=== PATIENT | female | born 1960 | race Caucasian/White ===

== ENCOUNTER 2022-04-06 17:20 | Emergency (ER) | payer MEDICARE, MEDICAID, SELFPAY ==
--- NOTE | ~2022-04-06 | XR_ITS ---
EXAM: XR cervical spine 4-5V DATE: 04/06/2022 17:49 HISTORY: NKI,HX 2 DISC SURGERIES AND TUMOR REMOVED,LT POST PAIN . COMPARISON: None available. FINDINGS: On, gated appearing anterior fusion hardware spanning C4-C6 with an appropriately position ed interbody device. Craniocervical association and atlantoaxial joint are normal. No prevertebral so ft tissue swelling. Grade 1 anterolistheses at C2-3 and C3-4. Vertebral body heights are maintained. Severe degenerative disc disease at C6-7. Multilevel facet hypertrophy and sclerosis. 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 Severe degenera tive disc disease at C6-7. Multilevel facet arthropathy. Intact cervical hardware. Reviewed, dictated and finalized at location K. 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 Severe degenerative disc disease at C6-7. Multilevel facet arthropathy. Intact cervical hardware.
--- NOTE | 2022-04-06 17:24 | ED.NECK ---
HPI - Neck Pain/Injury General Chief Complaint: Neck Pain/Injury Stated Complaint: neck pain Time Seen by Provider: 04/06/22 17:24 Source: patient and RN notes reviewed History of Present Illness HPI Narrative: Patient is 61-year-old female who presents the urgent care with complaints of acute on chronic posterior neck pain. Patient states is been ongoing for approximately 1 month. Patient states she has had 2 C-spine surgeries in the past with a metal plate. Patient has been taking Tylenol for the pain and denies of any new injury or trauma. No other acute complaints. No acute distress noted. Patient aware of the plan of care. Some parts of this dictation were generated by voice recognition software and may contain typographical and/or grammatical inaccuracies. Related Data Home Medications Medication Instructions Recorded Confirmed albuterol sulfate 90 mcg/actuation 1 inhalation inhalation Q4-6H PRN 05/24/19 04/06/22 aerosol inhaler (ProAir HFA) Shortness Of Breath Or Wheezing aspirin 81 mg tablet,delayed 81 mg PO DAILY 05/24/19 04/06/22 release fluticasone furoate 100 1 inhalation inhalation DAILY 05/24/19 04/06/22 mcg-vilanterol 25 mcg/dose inhalation powder (Breo Ellipta) furosemide 20 mg tablet 20 mg PO DAILY 05/24/19 04/06/22 cholecalciferol (vitamin D3) 50 2,000 unit PO DAILY 07/26/19 04/06/22 mcg (2,000 unit) tablet letrozole 2.5 mg tablet 2.5 mg PO DAILY 04/06/22 04/06/22 levothyroxine 50 mcg tablet 50 mcg PO DAILY 04/06/22 04/06/22 metoprolol tartrate 50 mg tablet 50 mg PO BID 04/06/22 04/06/22 multivitamin 1 tablet PO DAILY 04/06/22 04/06/22 Allergies Allergy/AdvReac Type Severity Reaction Status Date / Time cyclobenzaprine Allergy Mild SHAKEY/DIZZ Verified 04/06/22 17:39 Y levofloxacin Allergy Mild Itching Verified 04/06/22 17:39 metaxalone Allergy Mild SHAKY/DIZZY Verified 04/06/22 17:39 naproxen Allergy Mild SHAKY/DIZZU Verified 04/06/22 17:39 Y orphenadrine Allergy Mild SHAKEY/DIZZ Verified 04/06/22 17:39 Y Quinolones Allergy Mild Dizziness Verified 04/06/22 17:39 rofecoxib Allergy Mild SHAKEY/DIZZ Verified 04/06/22 17:39 Y diclofenac Allergy Unknown Dizziness Verified 04/06/22 17:39 misoprostol Allergy Unknown Dizziness Verified 04/06/22 17:39 Review of Systems Review of Systems: CONSTITUTIONAL: Denies fever, chills, or sweats. EYES: Denies visual changes, redness, or discharge. ENT: Denies rhinorrhea, congestion, sore throat, or otalgia. CARDIOVASCULAR: Denies chest pain, palpitations, or edema. RESPIRATORY: Denies cough or dyspnea. GASTROINTESTINAL: Denies abdominal pain, nausea, vomiting, or diarrhea. GENITOURINARY: Denies dysuria or hematuria. SKIN: Denies rash or itching. MUSCULOSKELETAL: Reports of posterior left neck pain NEUROLOGIC: Denies headache, numbness, or weakness. All other systems reviewed are negative, except as documented in HPI. [facility] Past Medical History Medical History (Updated 04/06/22 @ 18:21 by RUBÉN Brar) Asthma Breast cancer FHx: breast cancer Headache History of cardiac pacemaker (~09/2018) Hypothyroidism (acquired) (~2004) Medicare annual wellness visit, subsequent Osteopenia Post menopausal problems Skin lesion of face Skin neoplasm Surgical History Surgical History History of heart surgery (~2006) History of lumbosacral spine surgery S/P thyroid surgery (~1998) Family History Family History Mother Hypertension Family history of elevated blood lipids Family history of Alzheimer's disease Family history of malignant neoplasm Father Asthma Family history of osteoarthritis Family history of chronic obstructive pulmonary disease Family history of malignant neoplasm of kidney Other Cerebrovascular accident Diabetes mellitus Family history of arthritis Family history of gout Family history of
[2022-04-06 17:36] VITALS: BP 135/66; PULSE 76; RESP 20; TEMP 36.6; O2SAT 100
== END 2022-04-06 18:25 | disposition home or self-care (01) ==
PROVIDERS: Emergency Provider Nurse Practitioner Family; PCP Family Medicine
DX: S16.1XXA Strain of muscle, fascia and tendon at neck level, initial encounter (principal); X58.XXXA Exposure to other specified factors, initial encounter; J45.909 Unspecified asthma, uncomplicated; E03.9 Hypothyroidism, unspecified; M85.80 Other specified disorders of bone density and structure, unspecified site; Z85.3 Personal history of malignant neoplasm of breast; Z85.828 Personal history of other malignant neoplasm of skin; Z95.0 Presence of cardiac pacemaker
CPT/HCPCS: 72050; 99213; G0463

== ENCOUNTER 2022-06-05 09:50 | Emergency (ER) | payer MEDICARE, MEDICAID, SELFPAY ==
[2022-06-05 09:56] VITALS: BP 90/39; PULSE 83; RESP 16; TEMP 36.8; O2SAT 99
--- NOTE | 2022-06-05 10:23 | ED.URI ---
HPI - URI/Sore Throat General Chief Complaint: Upper Respiratory Infection Stated Complaint: Cough Time Seen by Provider: 06/05/22 10:24 Source: patient and RN notes reviewed Mode of arrival: ambulatory Limitations: no limitations History of Present Illness HPI Narrative: 61-year-old female presenting for complaint of cough for about 3 days. She denies shortness of breath, wheezing, nausea, vomiting, diarrhea, fevers or chills. She is not taking anything for symptoms. She has not been posted for COVID vaccinated for flu. She denies sick contacts. MD elicited complaint: cough Related Data Home Medications Medication Instructions Recorded Confirmed aspirin 81 mg tablet,delayed 81 mg PO DAILY 05/24/19 06/05/22 release furosemide 20 mg tablet 20 mg PO DAILY 05/24/19 06/05/22 cholecalciferol (vitamin D3) 50 2,000 unit PO DAILY 07/26/19 06/05/22 mcg (2,000 unit) tablet letrozole 2.5 mg tablet 2.5 mg PO DAILY 04/06/22 06/05/22 levothyroxine 50 mcg tablet 50 mcg PO DAILY 04/06/22 06/05/22 metoprolol tartrate 50 mg tablet 50 mg PO BID 04/06/22 06/05/22 multivitamin 1 tablet PO DAILY 04/06/22 06/05/22 Allergies Allergy/AdvReac Type Severity Reaction Status Date / Time cyclobenzaprine Allergy Mild SHAKEY/DIZZ Verified 06/05/22 10:13 Y levofloxacin Allergy Mild Itching Verified 06/05/22 10:13 metaxalone Allergy Mild SHAKY/DIZZY Verified 06/05/22 10:13 naproxen Allergy Mild SHAKY/DIZZU Verified 06/05/22 10:13 Y orphenadrine Allergy Mild SHAKEY/DIZZ Verified 06/05/22 10:13 Y Quinolones Allergy Mild Dizziness Verified 06/05/22 10:13 rofecoxib Allergy Mild SHAKEY/DIZZ Verified 06/05/22 10:13 Y diclofenac Allergy Unknown Dizziness Verified 06/05/22 10:13 misoprostol Allergy Unknown Dizziness Verified 06/05/22 10:13 Review of Systems Review of Systems: ROS per HPI PMFSH Past Medical History Medical History Asthma Breast cancer FHx: breast cancer Headache History of cardiac pacemaker (~09/2018) Hypothyroidism (acquired) (~2004) Medicare annual wellness visit, subsequent Osteopenia Post menopausal problems Skin lesion of face Skin neoplasm Surgical History Surgical History History of heart surgery (~2006) History of lumbosacral spine surgery S/P thyroid surgery (~1998) Family History Family History Mother Hypertension Family history of elevated blood lipids Family history of Alzheimer's disease Family history of malignant neoplasm Father Asthma Family history of osteoarthritis Family history of chronic obstructive pulmonary disease Family history of malignant neoplasm of kidney Other Cerebrovascular accident Diabetes mellitus Family history of arthritis Family history of gout Family history of mental disorder Social History Social History Smoking status: Never smoker Second hand tobacco smoke exposure: No Alcohol intake: never Exam Narrative: GENERAL: well-appearing, nontoxic EYES: PERRLA, conjunctivae clear ENT: Mucous membranes moist. nasal congestion. TMs pearly calderon with dull light reflex bilaterally; no tragal tenderness. Oropharynx erythematous without lesions or exudate, no drooling, no hoarseness, no trismus, uvula midline. CHEST: Clear to auscultation, breath sounds equal. No wheezing, rhonchi, rales, or stridor. No respiratory distress, speaks in full sentences. HEART: Regular rate and rhythm. No murmur heard. SKIN: Warm, dry, no rash. NEURO: Alert and oriented x3. PSYCH: Normal mood and affect Course Course Emergency Course: Patient is aware of diagnosis, understands and agrees to treatment plan. Anticipatory guidance given. Patient agrees to follow-up as directed and is aware of reasons to seek care at the emerg
== END 2022-06-05 10:43 | disposition home or self-care (01) ==
PROVIDERS: Emergency Provider Nurse Practitioner Family; PCP Family Medicine
DX: J06.9 Acute upper respiratory infection, unspecified (principal); J45.909 Unspecified asthma, uncomplicated; E03.9 Hypothyroidism, unspecified; M85.80 Other specified disorders of bone density and structure, unspecified site; Z85.3 Personal history of malignant neoplasm of breast; Z85.828 Personal history of other malignant neoplasm of skin
CPT/HCPCS: 99213; G0463

== ENCOUNTER 2022-10-20 12:17 | Emergency (ER) | payer MEDICARE, MEDICAID, SELFPAY ==
[2022-10-20 12:30] VITALS: BP 130/73; PULSE 84; RESP 16; TEMP 35.8; O2SAT 100
--- NOTE | 2022-10-20 13:13 | ED.GENADULT ---
HPI - General Adult General Chief complaint: Ear Stated complaint: Left Ear Problem Source: patient Mode of arrival: ambulatory Limitations: no limitations History of Present Illness HPI narrative: PATIENT PRESENTS FOR EVALUATION OF LEFT EAR FULLNESS. SYMPTOM ONSET APPROXIMATELY 1 WEEK AGO. SHE HAS SOME MUFFLED HEARING ON THE LEFT. DENIES ANY TINNITUS OR DRAINAGE FROM THE EAR. NO FEVER, CHILLS, NAUSEA, VOMITING, SORE THROAT, RESPIRATORY SYMPTOMS. SHE BELIEVES SHE HAS A CERUMEN IMPACTION. Related Data Home Medications Medication Instructions Recorded Confirmed aspirin 81 mg tablet,delayed 81 mg PO DAILY 05/24/19 10/20/22 release furosemide 20 mg tablet 20 mg PO DAILY 05/24/19 10/20/22 cholecalciferol (vitamin D3) 50 2,000 unit PO DAILY 07/26/19 10/20/22 mcg (2,000 unit) tablet letrozole 2.5 mg tablet 2.5 mg PO DAILY 04/06/22 10/20/22 levothyroxine 50 mcg tablet 50 mcg PO DAILY 04/06/22 10/20/22 metoprolol tartrate 50 mg tablet 50 mg PO BID 04/06/22 10/20/22 multivitamin 1 tablet PO DAILY 04/06/22 10/20/22 fluticasone furoate 100 1 inh inhalation DAILY 10/20/22 10/20/22 mcg-vilanterol 25 mcg/dose inhalation powder (Breo Ellipta) Allergies Allergy/AdvReac Type Severity Reaction Status Date / Time cyclobenzaprine Allergy Mild SHAKEY/DIZZ Verified 10/20/22 12:42 Y levofloxacin Allergy Mild Itching Verified 10/20/22 12:42 metaxalone Allergy Mild SHAKY/DIZZY Verified 10/20/22 12:42 naproxen Allergy Mild SHAKY/DIZZU Verified 10/20/22 12:42 Y orphenadrine Allergy Mild SHAKEY/DIZZ Verified 10/20/22 12:42 Y Quinolones Allergy Mild Dizziness Verified 10/20/22 12:42 rofecoxib Allergy Mild SHAKEY/DIZZ Verified 10/20/22 12:42 Y diclofenac Allergy Unknown Dizziness Verified 10/20/22 12:42 misoprostol Allergy Unknown Dizziness Verified 10/20/22 12:42 Review of Systems Review of Systems: CONSTITUTIONAL: DENIES FEVER, CHILLS, OR SWEATS. EYES: DENIES VISUAL CHANGES, REDNESS, OR DISCHARGE. ENT: REPORTS FULLNESS IN THE LEFT EAR WITH MILD MUFFLED HEARING. DENIES TINNITUS OR DRAINAGE FROM THE EAR CARDIOVASCULAR: DENIES CHEST PAIN, PALPITATIONS, OR EDEMA. RESPIRATORY: DENIES COUGH OR DYSPNEA. GASTROINTESTINAL: DENIES ABDOMINAL PAIN, NAUSEA, VOMITING, OR DIARRHEA. GENITOURINARY: DENIES DYSURIA OR HEMATURIA. SKIN: DENIES RASH OR ITCHING. MUSCULOSKELETAL: DENIES BACK PAIN, JOINT PAIN, OR MYALGIA. NEUROLOGIC: DENIES HEADACHE, NUMBNESS, DIZZINESS, OR WEAKNESS. PSYCHIATRIC: DENIES ANXIETY OR DEPRESSION. ON LICENSE OF [facility] Past Medical History Medical History Asthma Breast cancer FHx: breast cancer Headache History of cardiac pacemaker (~09/2018) Hypothyroidism (acquired) (~2004) Medicare annual wellness visit, subsequent Osteopenia Post menopausal problems Skin lesion of face Skin neoplasm Surgical History Surgical History History of heart surgery (~2006) History of lumbosacral spine surgery S/P thyroid surgery (~1998) Family History Family History Mother Hypertension Family history of elevated blood lipids Family history of Alzheimer's disease Family history of malignant neoplasm Father Asthma Family history of osteoarthritis Family history of chronic obstructive pulmonary disease Family history of malignant neoplasm of kidney Other Cerebrovascular accident Diabetes mellitus Family history of arthritis Family history of gout Family history of mental disorder Social History Social History Smoking status: Never smoker Second hand tobacco smoke exposure: No Alcohol intake: never Exam Narrative: GENERAL: WELL-APPEARING, WELL-NOURISHED, AND IN NO ACUTE DISTRESS. HEAD: NORMOCEPHALIC, ATRAUMATIC. EYES: PERRLA AND EOMI. ENT: NARES CLEAR, NO RHIN
== END 2022-10-20 13:14 | disposition home or self-care (01) ==
PROVIDERS: Emergency Provider Nurse Practitioner; PCP Family Medicine
DX: H66.92 Otitis media, unspecified, left ear (principal); J45.909 Unspecified asthma, uncomplicated; E03.9 Hypothyroidism, unspecified; M85.80 Other specified disorders of bone density and structure, unspecified site; Z85.3 Personal history of malignant neoplasm of breast; Z85.828 Personal history of other malignant neoplasm of skin; Z95.0 Presence of cardiac pacemaker
CPT/HCPCS: 99213; G0463

== ENCOUNTER 2024-08-26 16:13 | Emergency (ER) | payer OTHER, SELFPAY ==
--- OUTSIDE RECORDS SUMMARY | 2024-08-26 16:17 | XMS_ITS | Encounter Summary ---
Author Organization [facility] Address [address] [place] [address] Phone Care Team Providers Care Enzyme Chemist Name Role Phone Juan David Ashby MD Unavailable Hector Rendon MD Unavailable Rohit Cardoso MD Unavailable [phone] Sung Do MD Unavailable Silvano Byrne MD Primary Care Provider Shawn Alves MD Unavailable Nati Garcia [facility] Primary Care Pro vider Reason for Visit * Reason Comments Medication Refill Encounter Details Date Type Department Care Team (Late st Contact Info) Description 07/09/2020 [facility] [address] [place] [address] Silvano Byrne MD [address] [place] [address] Medication Refill Social History Tobacco Use Types Packs/Day Years Used Date Smoking Tobacco: Never Smokeless Tobacco: Never Alcohol Use Standard Drinks/Week Comments Not Currently 0 (1 standard drink = 0.6 oz pur e alcohol) Occasionally on holidays. AUDIT-C Answer Date Recorded Q1: How often do you have a drink containing alc ohol? Monthly or less 12/28/2019 Q2: How many drinks containi ng alcohol do you have on a typical day when you are drinking? 1 or 2 12/28/2019 Q3: How often do you have si x or more drinks on one occasion? 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 No / Unsure 07/10/2020 1:19 PM HIRED HAND documented as of this encounter Miscellaneous Notes * Telephone Encounter - Poppy Membreno RN - 07/10/2020 1:45 PM CST Medication failed the protocol, provider to review and approve the medication order if appropriate. Requested Prescriptions Pending Prescriptions Disp Refills ProAir HFA 108 (90 Base) MCG/ACT Aerosol Solution [Pharmacy Med Name: PROAIR HFA 90 MCG INHALER] 8.5 Inhaler 0 Sig: INHALE 1-2 PUFFS BY MOUTH EVERY 6 HOURS NEEDED FOR WHEEZING Pulmonology: Beta Agonists - Albuterol & Levalbuterol Failed - 07/09/2020 12:17 AM Failed - May refill 2 inhalers, 0 refills one time since last office visit. May refill #50 nebulizer vials, 0 refills for albuterol or #48 vials, 0 refills for Xopenex one time since last office visit. Passed - Valid encounter within last 6 months Past Office Visits Recent Outpatient Visits 6 days ago New onset of headaches [facility] - Family Medicine - Silvano Longo MD 1 month ago Nonischemic cardiomyopathy (HCC) [facility] - [facility] Medicine - Silvano Longo MD 4 months ago Chronic combined systolic and diastolic congestive heart failure (HCC) [facility] - Family Medicine Silvano Goldman MD Upcoming Appointments Future Appointments Today [facility], [facility] In 2 months Ankita Villafuerte, DISHWASHER BUSSER, SUPERVISOR ABATTOIR [facility] [place] [facility], [facility] In 2 months [facility] CC INFUSION CHR3 [facility], [facility] POP SINGER - Recent and Past Visits Recent Visits Date Type Provider Dept 07/04/20 Office Visit Silvano Byrne MD [facility] 05/29/20 Office Visit Silvano Byrne MD [facility] 02/25/20 Office Visit Silvano Byrne MD [facility] Showing recent visits within past 460 days with a meds authorizing provider and meeting all other requirements Future Appointments No visits were found meeting these conditions. Showing future appointments within next 90 days with a meds authorizing provider and meeting all other requirements Passed - Last BP in normal range BP Readings from Last 1 Encounters: 07/04/20 112/60 D HAND documented in this encounter Plan of Treatment Upcoming Encounters Date Type Department Care Team (Late st Contact Info) Description 09/14/2024 1:00 PM CDT Lab [facility] [address] [place] [address] Discharge Disposition: Discharged to home or Selfcare 09/21/2024 11:30 AM CDT Office Visit [facility] [address] [place] [address] Leighann Crow, REMELT FURNACE EXPEDITER, SUPERVISOR ABATTOIR [address] [place] [address] Discharge Disposition: Discharged to home or Selfcare 09/27/2024 11:30 AM CDT Office Visit [facility] - Internal Medicine - [place] [address] [place] [address] Nati Garcia, [facility] [address] [place] [address] documented as of this encounter Visit Diagnoses Not on filedocumented in this encounter Care Teams Enzyme Chemist Relationship Specialty Start Date End Date Silvano Byrne MD [address] [address] PCP - General Family Medicine 02/25/20 03/23/24 Nati Garcia, [facility] [address] [place] [address] PCP - General Physician Camp Maintenance Supervisor 03/24/24 Juan David Ashby MD Consulting Physician General Surgery 12/27/19 Hector Rendon MD [address] [place] [address] Consulting Physician Medical Oncology 12/27/19 Rohit Cardoso MD [address] [place] [address] Consulting Physician Radiation Oncology 12/27/19 Sung Do MD [address] [address] Consulting Physician Cardiovascular Disease - Cardiology 12/28/19 Shawn Alves MD [address] [address] Consulting Physician Colon and Rectal Surgery 05/10/22 documented as of this encounter
--- OUTSIDE RECORDS SUMMARY | 2024-08-26 16:17 | XMS_ITS | Encounter Summary ---
Author Organization [facility] Address [address] [facility] [place] [address] Phone Care Team Providers Care Government Affairs Manager Name Role Phone Juan David Ashby MD Unavailable Hector Rendon MD Unavailable Rohit Cardoso MD Unavailable Sung Do MD Unavailable Silvano Byrne MD Primary Care Provider [phone] Shawn Alves MD Unavailable Nati Garcia [facility] Primary Care Pro vider Reason for Visit * Reason Comments Medication Refill Encounter Details Date Type Department Care Team (Late st Contact Info) Description 11/12/2020 [facility] [address] [place] [address] Hector Rendon MD [address] [place] [address] Medication Refill Social History Tobacco Use Types [...] Start Date 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 on file Not on file No t on file documented as of this encounter Miscellaneous Notes * Telephone Encounter - Radha Evans RN - 11/13/2020 8:14 AM CDT Refilled Letrozole documented in this encounter Plan of Treatment Upcoming Encounters Date Type Department Care Team (Late st Contact Info) Description 09/14/2024 1:00 PM CD[facility] [address] [place] [address] Discharge Disposition: Discharged to home or Selfcare 09/21/2024 11:30 AM CDT [facility] [address] [place] [address] Leighann Crow, PROTECTIVE SIGNAL SUPERINTENDENT, EMERGENCY ROOM DOCTOR [address] [place] [address] Discharge Disposition: Discharged to home or Selfcare 09/27/2024 11:30 AM CDT Office Visit [facility] - Internal Medicine - [place] [address] [place] [id number] Nati Garcia, PAC [address] [place] [address] documented as of this encounter Visit Diagnoses Not on filedocumented in this encounter Care Teams Government Affairs Manager Relationship Specialty Start Date End Date Silvano Byrne MD [address] [address] PCP - General Family Medicine 02/25/20 03/23/24 Nati Garcia, [facility] [address] [place] [address] PCP - General Physician Guardian Family Member 03/24/24 Juan David Ashby MD Consulting Physician General Surgery 12/27/19 Hector Rendon MD [address] [place] [address] Consulting Physician Medical Oncology 12/27/19 Rohit Cardoso MD [address] [place] [address] Consulting Physician Radiation Oncology 12/27/19 Sung Do MD [address] [facility] [address] [place] [address] Consulting Physician Cardiovascular Disease - Cardiology 12/28/19 Shawn Alves MD [address] [address] Consulting Physician Colon and Rectal Surgery 05/10/22 documented as of this encounter
--- OUTSIDE RECORDS SUMMARY | 2024-08-26 16:17 | XMS_ITS ---
Author Organization [facility] Address [address] [place] [address] Phone Care Team Providers Care Domestic Housekeeper Name Role Phone Juan David Ashby MD Unavailable Hector Rendon MD Unavailable [phone] Rohit Cardoso MD Unavailable Sung Do MD Unavailable [phone] Shawn Alves MD Unavailable Nati Garcia [facility] Primary Care Pro vider Active Problems Problem Noted Date Diagnosed Date Esophageal stenosis 01/05/2024 History of malignant neoplasm of breast 09/11/19 22 Anemia 09/10/2021 Osteoarthritis of right hip 09/10/2021 Essential hypertension 09/10/2021 Constipation 09/03/2021 Use of letrozole (Femara) 06/28/2020 Overview (06/28/2020): Started on letrozole 02/22/2020. 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 Records were unavailable. Right partial breast radiotherapy, 50.4 Gy in 28 fractions, from 01/10/2020 thru 02/16/2020. Personal history of Hodgkin lymphoma 12/08/2019 Overview (02/16/2020): Diagnosed in 1976 at the age of 16 years with Hodgkin's disease with a high right neck presentation, subtype in stage unknown. She received radiation therapy at [facility] with what from her description sounded like mantle field radiotherapy. The treatment was originally to take 1 month but secondary to treatment breaks because of uncontrollable nausea she said it took closer to 3 months. She did not receive chemotherapy. 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 She was seen in medical oncology consultation and not recommended to receive chemotherapy and instead was recommended to be placed on an aromatase inhibitor after completion of right breast radiotherapy. She completed right partial breast radiotherapy 02/16/2020, 50.4 Gy in 28 fractions. Congenital deformity of both hip joints 12/08/19 20 Osteopenia of multiple sites 12/08/2019 Chronic HFrEF (heart failure with reduced ejection fraction) 12/02/2018 Status post biventricular pacemaker 10/16/2018 Overview (02/25/2020): Zayas/St Saleem BIV Pacemaker. Dx; NICM, CHF, LBBB, CHB. DOI 10/15/2018-Ramaswamy. Lamas remote monitoring. Nonischemic cardiomyopathy 07/25/2015 Overview (02/25/2020): Cardiomyopathy History of mitral valve repair 07/25/2015 Overview (02/25/2020): Hx of mitral valve repair Aortic valve insufficiency 07/25/2015 Overview (02/25/2020): Aortic valve insufficiency, unspecified etiology Pulmonary hypertension 07/25/2015 Overview (02/25/2020): Pulmonary HTN Ventricular premature beats 07/25/2015 Overview (02/25/2020): Symptomatic PVCs Acquired hypothyroidism 07/30/2008 Overview (02/25/2020): Hypothyroidism (acquired) Migraine with aura 07/30/2008 Asthma 07/07/2006 Status post partial mastectomy of right breast Acute radiation dermatitis Adverse effect of radiation Borderline personality disorder Overview (02/27/2020): Her sister DJ states that the patient says she understands things but really does not. 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 No medications schedul ed. No medications scheduled. Past Treatment and Therapy Plans Resolved Problems Problem Noted Date Diagnosed Date Resolved Date CHB (complete heart block) 12/02/2018 1 08/26/2020 Left bundle branch block (LBBB) 10/16/2016 02/27/2020 Overview (02/25/2020): LBBB (left bundle branch block) Sick sinus syndrome 10/16/2016 06/25/20 Overview (02/25/2020): Sick sinus syndrome Encounter for radiotherapy 0 02/16/2020
--- OUTSIDE RECORDS SUMMARY | 2024-08-26 16:17 | XMS_ITS | Encounter Summary ---
Author Organization [facility] Address [address] [place] [address] Phone Care Team Providers Care Roustabout Crew Leader Name Role Phone Juan David Ashby MD Unavailable Hector Rendon MD Unavailable [phone] Rohit Cardoso MD Unavailable [phone] Sung Do MD Unavailable Silvano Byrne MD Primary Care Provider Shawn Alves MD Unavailable Nati Garcia [facility] Primary Care Pro vider Reason for Visit * Reason Comments Medication Refill Encounter Details Date Type Department Care Team (Late st Contact Info) Description 02/08/2021 Refill [facility] - [place] [address] [place] [address] Silvano Byrne MD [address] [place] [address] Medication Refill Social History Tobacco Use Types [...] 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 Requested Prescriptions Pending Prescriptions Disp Refills levothyroxine (SYNTHROID) 50 MCG Tablet [Pharmacy Med Name: LEVOTHYROXINE 50 MCG TABLET] 90 Tablet 1 Sig: TAKE 1 TABLET BY MOUTH EVERY DAY Thyroid Hormones Protocol Failed - 02/08/2021 7:28 PM Failed - Normal TSH in past 12 months No results found for: TSH Passed - Visit with relevant provider in past 12 months or upcoming 90 days Recent Visits Date Type Provider Dept 09/15/20 Office Visit Silvano Byrne MD [facility] [place] 07/04/20 Office Visit Silvano Byrne MD [facility] [place] 05/29/20 Office Visit Silvano Byrne MD [facility] [place] 02/25/20 Office Visit Silvano Byrne MD [facility] Showing recent visits within past 365 days and meeting all other requirements Future Appointments No visits were found meeting these conditions. Showing future appointments within next 90 days and meeting all other requirements documented in this encounter Plan of Treatment Upcoming Encounters Date Type Department Care Team (Late st Contact Info) Description 09/14/2024 1:00 PM CDT [facility] Oncology Services [address] [place] [phone] Discharge Disposition: Discharged to home or Selfcare 09/21/2024 11:30 AM CDT [facility] [address] [place] [phone] Leighann Crow, INSPECTOR TOYS, ORTHOPEDIC NURSE PRACTITIONER [address] [place] [address] Discharge Disposition: Discharged to home or Selfcare 09/27/2024 11:30 AM CDT Office Visit [facility] - Internal Medicine - [place] [address] [place] [phone] Nati Garcia, PAC [address] [place] [address] documented as of this encounter Visit Diagnoses Not on filedocumented in this encounter Care Teams Roustabout Crew Leader Relationship Specialty Start Date End Date Silvano Byrne MD [address] [address] PCP - General Family Medicine 02/25/20 03/23/24 Nati Garcia, PAC [address] [place] [address] PCP - General Physician Bulb Grower 03/24/24 Juan David Ashby MD Consulting Physician General Surgery 12/27/19 Hector Rendon MD [address] [place] [address] Consulting Physician Medical Oncology 12/27/19 Rohit Cardoso MD [address] [place] [address] Consulting Physician Radiation Oncology 12/27/19 Sung Do MD [facility] [address] [place] [address] Consulting Physician Cardiovascular Disease - Cardiology 12/28/19 Shawn Alves MD [address] [address] Consulting Physician Colon and Rectal Surgery 05/10/22 documented as of this encounter
--- OUTSIDE RECORDS SUMMARY | 2024-08-26 16:17 | XMS_ITS | Encounter Summary ---
Author Organization [facility] Address [address] [address] Care Team Providers Care Truck Spotter Name Role Phone Jeremy Stinson MD Primary Care Provider [phone] Jeremy Stinson MD Primary Care Provider [phone] Jeremy Stinson MD Primary Care Provider + [phone] Antoinette Thomas MD Primary Care Prov ider Jeremy Stinson MD Primary Care Provider + [phone] Sung Do MD Unavailable [phone] Mer Szymanski MD Primary Care Provider Sung Do MD Primary Care Provider + Silvano Byrne MD Primary Care Provider [phone] Saul Marquez MD Unavailable [phone] Encounter Details Date Type Department Care Team (Late st Contact Info) Description 08/23/2016 Orders Only [facility] ProviderBella MD [address] [place] [address] Social History Tobacco Use Types Packs/Day Years Used Date Smoking Tobacco: Never Alcohol Use Standard Drinks/Week Comments No 0 (1 standard drink = 0.6 oz pur e alcohol) Comments Unknown Sex and Gender Information Value Date Recorded Sex Assigned at Not on file Legal Sex Female 12:19 AM PURCHASING DIRECTOR Gender Identity Not on file Sexual Orientation Not on file documented as of this encounter Plan of Treatment Not on file documented as of this encounter Procedures Procedure Name Priority Date/Time Associated Diagnosis Comments CARDIOLOGY REPORT 08/23/2016 documented in this encounter Results * CARDIOLOGY REPORT (08/23/2016) Anatomical Region Laterality Modality Other Narrative 08/23/2016 Ordered by an unspecified provider. us Historical Provider [facility] Final Result documented in this encounter Visit Diagnoses Not on filedocumented in this encounter Care Teams Truck Spotter Relationship Specialty Start Date End Date Jeremy Stinson MD [address] [place] [address] PCP - General 10/04/16 10/28/16 Jeremy Stinson MD [address] [place] [address] PCP - General 08/29/16 10/03/16 Jeremy Stinson MD [address] [place] [address] PCP - General 12/11/06 08/28/16 Antoinette Thomas MD [address] [place] [address] PCP - General 10/29/16 11/05/16 Jeremy Stinson MD [address] [place] [address] PCP - General 11/06/16 04/29/19 Mer Szymanski MD [address] [place] [address] PCP - General Family Medicine 04/30/19 03/28/20 Sung Do MD [address] [place] [address] PCP - General Cardiology 03/29/20 03/29/20 Silvano Byrne MD [address] [facility] [address] [address] [address] PCP - General Family Medicine 03/30/20 Sung Do MD [address] [place] [address] Consulting Physician Cardiology 10/16/18 Saul Marquez MD [address] [address] Surgeon Orthopedic Surgery 08/28/21 documented as of this encounter
--- OUTSIDE RECORDS SUMMARY | 2024-08-26 16:17 | XMS_ITS | Encounter Summary ---
Author Organization [facility] Address [address] [place] [address] Phone Care Team Providers Care Firer Kiln Name Role Phone Juan David Ashby MD Unavailable Hector Rendon MD Unavailable [phone] Rohit Cardoso MD Unavailable [phone] Sung Do MD Unavailable [phone] Silvano Byrne MD Primary Care Provider [phone] Shawn Alves MD Unavailable Nati Garcia [facility] [place] [facility] Primary Care Pro vider Reason for Visit * Reason Comments Medication Refill Encounter Details Date Type Department Care Team (Late st Contact Info) Description 05/16/2020 [facility] [address] [place] [phone] Hector Rendon MD [address] [place] [address] Medication Refill Social History Tobacco Use Types Packs/Day Years Used Date Smoking Tobacco: Never Smokeless Tobacco: Never Alcohol Use Standard Drinks/Week Comments Yes 0 (1 standard drink = 0.6 oz [...] Start Date 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 on file Not on file No t on file documented as of this encounter Miscellaneous Notes * Telephone Encounter - Radha Evans RN - 05/16/2020 8:03 AM PRODUCT DEVELOPMENT CONSULTANT Refilled Letrozole 2.5mg #90 +1 next appointment 06/20/20 UCT DEVELOPMENT CONSULTANT documented in this encounter Plan of Treatment Upcoming Encounters Date Type Department Care Team (Late st Contact Info) Description 09/14/2024 1:00 PM CD[facility] [address] [place] [address] Discharge Disposition: Discharged to home or Selfcare 09/21/2024 11:30 AM CDT [facility] [address] [place] [address] Leighann Crow, HOME ENERGY INSPECTOR, CHIEF SCIENCE OFFICER [address] [place] [address] Discharge Disposition: Discharged to home or Selfcare 09/27/2024 11:30 AM CDT Office Visit [facility] - Internal Medicine [facility] [address] [place] [phone] Nati Garcia, [facility] [place] [facility] [address] [place] [address] documented as of this encounter Visit Diagnoses Not on filedocumented in this encounter Care Teams Firer Kiln Relationship Specialty Start Date End Date Silvano Byrne MD [address] [facility] [address] [place] [address] PCP - General Family Medicine 02/25/20 03/23/24 Nati Garcia, [facility] [place] [facility] [address] [place] [address] PCP - General Physician Maintenance Director 03/24/24 Juan David Ashby MD Consulting Physician General Surgery 12/27/19 Hector Rendon MD [address] [place] [address] Consulting Physician Medical Oncology 12/27/19 Rohit Cardoso MD [address] [place] [address] Consulting Physician Radiation Oncology 12/27/19 Sung Do MD [address] [facility] [address] [place] [address] Consulting Physician Cardiovascular Disease - Cardiology 12/28/19 Shawn Alves MD [address] [address] Consulting Physician Colon and Rectal Surgery 05/10/22 documented as of this encounter
--- OUTSIDE RECORDS SUMMARY | 2024-08-26 16:17 | XMS_ITS | Encounter Summary ---
Author Organization [facility] Address [address] [place] [address] Phone Care Team Providers Care Insurance Account Executive Name Role Phone Juan David Ashby MD Unavailable Hector Rendon MD Unavailable Rohit Cardoso MD Unavailable Sung Do MD Unavailable [phone] Silvano Byrne MD Primary Care Provider Shawn Alves MD Unavailable Nati Garcia [facility] Primary Care Pro vider Reason for Visit * Reason Onset Date Comments Medication Refill 06/19/2020 Encounter Details Date Type Department Care Team (Late st Contact Info) Description 06/19/2020 Refill [facility] [address] [place] [address] Silvano Byrne MD [address] [place] [address] Medication Refill Social History Tobacco Use Types [...] Start Date 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 No / Unsure 06/20/2020 11:26 AM HAT BRUSHER MACHINE documented as of this encounter Miscellaneous Notes * Telephone Encounter - Poppy Membreno RN - 06/20/2020 10:52 AM CST Medication failed the protocol, provider to review and approve the medication order if appropriate. Requested Prescriptions Pending Prescriptions Disp Refills albuterol (ProAir HFA) 108 (90 Base) MCG/ACT Aerosol Solution 8.5 g 0 Sig: take 1-2 Puffs by inhalation every 6 hours as needed. Pulmonology: Beta Agonists - Albuterol & Levalbuterol Failed - 06/19/2020 3:39 PM Failed - May refill 2 inhalers, 0 refills one time since last office visit. May refill #50 nebulizer vials, 0 refills for albuterol or #48 vials, 0 refills for Xopenex one time since last office visit. Passed - Valid encounter within last 6 months Past Office Visits Recent Outpatient Visits 3 weeks ago Nonischemic cardiomyopathy (HCC) [facility] - [facility] Medicine - Silvano Longo MD 3 months ago Chronic combined systolic and diastolic congestive heart failure (HCC) [facility] - Family Medicine - Silvano Longo MD Upcoming Appointments Future Appointments Today Hector Rendon MD [facility] Oncology Services, [facility] In 1 Rohit Block MD [facility] Oncology Services, [facility] [employer] OFFICER - Recent and Past Visits Recent Visits Date Type Provider Dept 05/29/20 Office Visit Silvano Byrne MD [facility] 02/25/20 Office Visit [facility] Showing recent visits within past 460 days with a meds authorizing provider and meeting all other requirements Future Appointments No visits were found meeting these conditions. Showing future appointments within next 90 days with a meds authorizing provider and meeting all other requirements Passed - Last BP in normal range BP Readings from Last 1 Encounters: 05/29/20 100/62 BRUSHER MACHINE * Telephone Encounter - Donita Callejas - 06/19/2020 3:36 PM CST Received: []FAX []TELEPHONE CALL []MYCHART from: []PHARMACY []PATIENT/OTHER regarding medication management. Medication name and dose: Requested Prescriptions Pending Prescriptions Disp Refills ??? albuterol (ProAir HFA) 108 (90 Base) MCG/ACT Aerosol Solution 8.5 g 0 Sig: take 1-2 Puffs by inhalation every 6 hours as needed. Quantity: (30 day, 90 day, 3 monthly scripts) 1 Pharmacy preference for this medication: [facility]/pharmacy #[id number]?? Outcome: []Medication pended, routed to surescripts []Medication refused []Informed caller of refills at pharmacy []Additional message to medication management RN []Verbal authorization for written order to pharmacy []Additional message to provider []Verified medication with pharmacy Donita Medication Management BRUSHER MACHINE documented in this encounter Plan of Treatment Upcoming Encounters Date Type Department Care Team (Late st Contact Info) Description 09/14/2024 1:00 PM CDT Lab [facility] Oncology Services [address] [place] [phone] Discharge Disposition: Discharged to home or Selfcare 09/21/2024 11:30 AM CDT [facility] [address] [place] [phone] Leighann Crow, BANKING MANAGER, HAT RENOVATOR [address] [place] [address] Discharge Disposition: Discharged to home or Selfcare 09/27/2024 11:30 AM CDT Office Visit [facility] - Internal Medicine - [place] [address] [place] [phone] Nati Garcia, PAC [address] [place] [address] documented as of this encounter Visit Diagnoses Not on filedocumented in this encounter Care Teams Insurance Account Executive Relationship Specialty Start Date End Date Silvano Byrne MD [address] [address] PCP - General Family Medicine 02/25/20 03/23/24 Nati Garcia, [facility] [address] [place] [address] PCP - General Physician Lockstitch Topstitcher 03/24/24 Juan David Ashby MD Consulting Physician General Surgery 12/27/19 Hector Rendon MD [address] [place] [address] Consulting Physician Medical Oncology 12/27/19 Rohit Cardoso MD [address] [place] [address] Consulting Physician Radiation Oncology 12/27/19 Sung Do MD [facility] [facility] [address] [place] [address] Consulting Physician Cardiovascular Disease - Cardiology 12/28/19 Shawn Alves MD [address] [address] Consulting Physician Colon and Rectal Surgery 05/10/22 documented as of this encounter
--- OUTSIDE RECORDS SUMMARY | 2024-08-26 16:18 | XMS_ITS | Encounter Summary ---
Author Organization [facility] Address [address] [place] [address] Phone Care Team Providers Care Referral Management Liaison Name Role Phone Juan David Ashby MD Unavailable Hector Rendon MD Unavailable Rohit Cardoso MD Unavailable [phone] Sung Do MD Unavailable Silvano Byrne MD Primary Care Provider Shawn Alves MD Unavailable Nati Garcia [facility] Primary Care Pro vider Reason for Visit * Reason Comments Medication Refill Encounter Details Date Type Department Care Team (Late st Contact Info) Description 04/24/2023 [facility]ill [facility] [address] [place] [address] Silvano Byrne MD [address] [place] [address] Medication Refill Social History Tobacco Use Types [...] more drinks on one occasion? 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 Requested Prescriptions Pending Prescriptions Disp Refills levothyroxine (SYNTHROID) 50 MCG Tablet [Pharmacy Med Name: LEVOTHYROXINE 50 MCG TABLET] 90 Tablet 1 Sig: TAKE 1 TABLET BY MOUTH EVERY DAY Thyroid Hormones Protocol Failed - 04/24/2023 7:55 AM Failed - Normal TSH in past 12 months No results found for: TSH Passed - Visit with relevant provider in past 12 months or upcoming 90 days Recent Visits Date Type Provider Dept 11/18/22 Office Visit Silvano Byrne MD [facility] 08/14/22 Office Visit Martin Wayne APRN, [facility] 04/30/22 Office Visit Silvano Byrne MD [facility] Showing recent visits within past 365 days and meeting all other requirements Future Appointments Date Type Provider Dept 05/26/23 Appointment Silvano Byrne MD [facility] Showing future appointments within next 90 days and meeting all other requirements documented in this encounter Plan of Treatment Upcoming Encounters Date Type Department Care Team (Late st Contact Info) Description 09/14/2024 1:00 PM CDT Lab [facility] Oncology Services [address] [place] [address] Discharge Disposition: Discharged to home or Selfcare 09/21/2024 11:30 AM CDT [facility] [address] [place] [phone] Leighann Crow, CONTINUOUS MINER OPERATOR HELPER, POTTER OR CERAMIC ARTIST [address] [place] [address] Discharge Disposition: Discharged to home or Selfcare 09/27/2024 11:30 AM CDT Office Visit [facility] - Internal Medicine [facility] [address] [place] [address] Nati Garcia, DEEDEE [address] [place] [address] documented as of this encounter Goals Goal Patient Goal Type Associated Problems Recent Progress Patient-Stated? Author Healthy Lifestyle Healthy Lifestyle Carolyn Olivo, RN Note: Pace/increase activity documented as of this encounter Visit Diagnoses Not on filedocumented in this encounter Additional Health Concerns Assessment Noted Time PHQ-9 Depression Total Score: 0 04/06/20 21 10:00 AM CDT documented as of this encounter Care Teams Referral Management Liaison Relationship Specialty Start Date End Date Silvano Byrne MD [address] [address] PCP - General Family Medicine 02/25/20 03/23/24 Nati Garcia, PAC [address] [place] [address] PCP - General Physician Research Methodologist 03/24/24 Juan David Ashby MD Consulting Physician General Surgery 12/27/19 Hector Rendon MD [address] [place] [address] Consulting Physician Medical Oncology 12/27/19 Rohti Cardoso MD [address] [place] [address] Consulting Physician Radiation Oncology 12/27/19 Sung Do MD [address] [address] Consulting Physician Cardiovascular Disease - Cardiology 12/28/19 Shawn Alves MD [address] [address] Consulting Physician Colon and Rectal Surgery 05/10/22 documented as of this encounter
--- OUTSIDE RECORDS SUMMARY | 2024-08-26 16:18 | XMS_ITS | Encounter Summary ---
Author Organization [facility] Address [address] [place] [address] Phone Care Team Providers Care Multimedia Teacher Name Role Phone Juan David Ashby MD Unavailable Hector Rendon MD Unavailable [phone] Rohit Cardoso MD Unavailable Sung Do MD Unavailable Silvano Byrne MD Primary Care Provider [phone] Shawn Alves MD Unavailable Nati Garcia [facility] Primary Care Pro vider Reason for Visit * Reason Comments Medication Refill Encounter Details Date Type Department Care Team (Late st Contact Info) Description 10/19/2023 Refill [facility] [address] [place] [address] Silvano Byrne MD [address] [place] [address] Medication Refill Social History Tobacco Use Types [...] Recorded Total Score - Questions 1-9 0 0 11/2021 Sexually Active Control Partners Comments Not Currently Comments No Sex and Gender Information Value Date Recorded Sex Assigned at Not on file Legal Sex Female 8:56 PM CDT Gender Identity Not on file Sexual Orientation Not on file 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 Requested Prescriptions Pending Prescriptions Disp Refills levothyroxine (SYNTHROID) 50 MCG Tablet [Pharmacy Med Name: LEVOTHYROXINE 50 MCG TABLET] 90 Tablet 1 Sig: TAKE 1 TABLET BY MOUTH EVERY DAY Thyroid Hormones Protocol Failed - 10/19/2023 7:46 AM Failed - Normal TSH in past 12 months No results found for: TSH Passed - Visit with relevant provider in past 12 months or upcoming 90 days Recent Visits Date Type Provider Dept 05/26/23 Office Visit Silvano Byrne MD [facility] 11/18/22 Office Visit [facility] [place] Showing recent visits within past 365 days and meeting all other requirements Future Appointments Date Type Provider Dept 11/24/23 Appointment Lanie Sol, CONFIGURATION ENGINEER, FINANCIAL REPORTING CONSULTANT [facility] Showing future appointments within next 90 days and meeting all other requirements documented in this encounter Plan of Treatment Upcoming Encounters Date Type Department Care Team (Late st Contact Info) Description 09/14/2024 1:00 PM CDT [facility] Oncology Services [address] [place] [phone] Discharge Disposition: Discharged to home or Selfcare 09/21/2024 11:30 AM CDT [facility] [address] [place] [address] Leighann Crow, CONFIGURATION ENGINEER, FINANCIAL REPORTING CONSULTANT [address] [place] [address] Discharge Disposition: Discharged to home or Selfcare 09/27/2024 11:30 AM CDT Office [facility] Medical Group - Internal Medicine - [place] [address] [place] [address] Nati Garcia, PAC [address] [place] [address] documented as of this encounter Goals Goal Patient Goal Type Associated Problems Recent Progress Patient-Stated? Author Healthy Lifestyle Healthy Lifestyle Carolyn Olivo, RN Note: Pace/increase activity documented as of this encounter Visit Diagnoses Not on filedocumented in this encounter Additional Health Concerns Assessment Noted Time PHQ-9 Depression Total Score: 0 04/06/20 21 10:00 AM CDT documented as of this encounter Care Teams Multimedia Teacher Relationship Specialty Start Date End Date Silvano Byrne MD [address] [address] PCP - General Family Medicine 02/25/20 03/23/24 Nati Garcia, PAC [address] [place] [address] PCP - General Physician Machine Stuffer 03/24/24 Juan David Ashby MD Consulting Physician General Surgery 12/27/19 Hector Rendon MD [address] [place] [address] Consulting Physician Medical Oncology 12/27/19 Rohit Cardoso MD [address] [place] [address] Consulting Physician Radiation Oncology 12/27/19 Sung Do MD [address] [address] Consulting Physician Cardiovascular Disease - Cardiology 12/28/19 Shawn Alves MD [address] [address] Consulting Physician Colon and Rectal Surgery 05/10/22 documented as of this encounter
--- OUTSIDE RECORDS SUMMARY | 2024-08-26 16:18 | XMS_ITS | Encounter Summary ---
Author Organization [facility] Address [address] [place] [address] Phone Care Team Providers Care Baker Bread Name Role Phone Juan David Ashby MD Unavailable [phone] Hector Rendon MD Unavailable [phone] Rohit Cardoso MD Unavailable Sung Do MD Unavailable Silvano Byrne MD Primary Care Provider [phone] Shawn Alves MD Unavailable Nati Garcia [facility] Primary Care Pro vider Encounter Details Date Type Department Care Team (Late st Contact Info) Description 11/26/2023 Telephone [facility] [address] [place] [phone] Silvano Byrne MD [address] [place] [address] Social History Tobacco Use Types Packs/Day Years [...] 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 Not on file No t on file documented as of this encounter Plan of Treatment Upcoming Encounters Date Type Department Care Team (Late st Contact Info) Description 09/14/2024 1:00 PM CDT Lab [facility] Oncology Services [address] [place] [address] Discharge Disposition: Discharged to home or Selfcare 09/21/2024 11:30 AM CDT Office Visit [facility] Oncology Services [address] [place] [address] Leighann Crow, FIREPROOF DOOR ASSEMBLER, RAD TECHNOLOGIST [address] [place] [address] Discharge Disposition: Discharged to home or Selfcare 09/27/2024 11:30 AM CDT Office Visit [facility] Medical Group - Internal Medicine - [place] [address] [place] [phone] Nati Garcia, PAC [address] [place] [address] documented as of this encounter Goals Goal Patient Goal Type Associated Problems Recent Progress Patient-Stated? Author Healthy Lifestyle Healthy Lifestyle Carolyn Olivo, RN Note: Pace/increase activity documented as of this encounter Visit Diagnoses Not on filedocumented in this encounter Additional Health Concerns Assessment Noted Time PHQ-9 Depression Total Score: 0 04/06/20 21 10:00 AM CDT documented as of this encounter Care Teams Baker Bread Relationship Specialty Start Date End Date Silvano Byrne MD [address] [facility] [address] [place] [address] PCP - General Family Medicine 02/25/20 03/23/24 Nati Garcia, [facility] [address] [place] [address] PCP - General Physician Development Architect 03/24/24 Juan David Ashby MD Consulting Physician General Surgery 12/27/19 Hector Rendon MD [address] [place] [address] Consulting Physician Medical Oncology 12/27/19 Rohit Cardoso MD [address] [place] [address] Consulting Physician Radiation Oncology 12/27/19 Sung Do MD [address] [facility] [address] [place] [address] Consulting Physician Cardiovascular Disease - Cardiology 12/28/19 Shawn Alves MD #[address] [address] Consulting Physician Colon and Rectal Surgery 05/10/22 documented as of this encounter
--- OUTSIDE RECORDS SUMMARY | 2024-08-26 16:18 | XMS_ITS | Patient Health Summary ---
Author Organization [facility] Address [address] [facility] [place] [address] Care Team Providers Care Stencil Inspector Name Role Phone Priya Gallego MD Primary Care Provider + Note from [facility],non-owned Affiliates and Associated Physician Practices is amultiple site organization consisting of ambulatory clinics and hospital sitesin [place], [place], [place] and [place]. This disclosure is being madepursuant to the Care Everywhere program and may not contain all information available regarding this patient. Last updated 18.[facility] Social History Tobacco Use Types Packs/Day Years Used Date Smoking Tobacco: Never Assessed Sex and Gender Information Value Date Recorded Sex Assigned at Not on file Gender Identity Not on file Sexual Orientation Not on file Procedures * SARS-COV-2 (COVID-19) IN HOUSE(Performed 11/11/2019) * GROSS + MICRO EXAM(Performed 10/24/2005) Results * SARS-COV-2 (COVID-19) IN HOUSE (11/11/2019 6:14 AM CDT) COVID-19 PCR Not detected Not detected, Invalid 11/11/2019 9:50 PM CDT [facility] Microbiology SPECIMEN FROM NASOPHARYNGEAL STRUCTURE / Unknown Collection / Unknown 11/11/2019 6:14 AM CDT 11/11/2019 12:53 PM CDT Narrative [facility] - 11/11/2019 9:50 PM CDT This Real Time RT-PCR assay was developed and its performance characteristics determined by [facility]. This test has been authorized by the Food and Drug administration (FDA)under an Emergency Use Authorization (EUA). This test has been validated in accordance with the FDA's guidance document Policy for Diagnostic Testing in Laboratories Certified to perform High Complexity Testing under CLIA prior to Emergency Use Authorization for Coronavirus Disease-2019 during the Public Health Emergency issued on September 04, 2019. FDA independent review of this validation is pending. This test is only authorized for the duration of time the declaration that circumstances exist justifying the authorization of emergency use of in vitro diagnostic tests for detection of SARS-CoV-2 virus and/or diagnosis of COVID-19 infection under section 564(b)(1) of the Act, 21 U.S.C 360bbb-3 (b)(1), unless the authorization is terminated or revoked sooner. Michael Vidales MD LAB - MICROBIOLOGY ORDERABLES [facility] [address] [place] [address], [facility] [phone] * GROSS + MICRO EXAM (10/24/2005 5:26 PM CDT) Result CASE NUMBER [id number] Comment: ORDERING PHYSICIAN LINDSEY YUSUF SPECIMEN TYPE Tissue Date 10/25/2005 Physician Haris Yusuf Gross Description The specimen is received in a Formalin filled container labeled with the patient's name, Mariam Parish, and disc material, C5-C6. It consists of multiple small irregular light ivory leggett fragments of fibrous soft tissue measuring 4.2 x 0.7 x 0.4 cm. The tissue is submitted entirely in one cassette. JT avendaño Microscopic Exam Sections show fragments of fibrous cartilage and small amount of bone. Degenerative changes are seen. There is no evidence of malignancy. MC/na Diagnosis I. Disc material, C4-C6, resection -- Degenerative changes MC/na Locker Room Supervisor na Pathologist Cristela Nelson M.D. [place]. 10/28/2005 1032 <1> CPT code 63256 MISCELLANEOUS SAMPLES / Unknown 10/24/2005 5:26 PM CDT 10/24/2005 5:26 PM CDT Historical Provider LAB - PATHOLOGY/C YTOLOGY ORDERABLES Care Teams Stencil Inspector Relationship Specialty Start Date End Date Priya Gallego MD [address] [place] [address] PCP - General 12/05/17
--- OUTSIDE RECORDS SUMMARY | 2024-08-26 16:18 | XMS_ITS ---
Author Organization [facility] Address [address] [place] [address] Care Team Providers Care Machine Hoop Maker Name Role Phone Sung Do MD Unavailable [phone] Silvano Byrne MD Primary Care Provider [phone] Saul Marquez MD Unavailable [phone] Active Problems Problem Noted Date Diagnosed Date Cardiac resynchronization th erapy pacemaker (STONE SETTER APPRENTICE-P) in place 03/19/2024 Aftercare following right hip joint replacement surgery 09/10/2021 Acute radiation dermatitis 03/30/2020 Adverse effect of radiation 03/30/2020 Borderline personality disorder (CMS/HCC) 2019 Overview (03/30/2020): Her sister ROBI states that the patient says she understands things but really does not. 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 Records were unavailable. Right partial breast radiotherapy, 50.4 Gy in 28 fractions, from 01/10/2020 thru 02/16/2020. Carcinoma of upper-outer sonia drant of right breast in female, estrogen receptor positive 12/08/2019 Overview (03/30/2020): Pathological stage IA ER/NV positive, HER2 negative an Oncotype DX score [...] 12/08/19 20 Osteopenia of multiple sites 12/08/2019 Personal history of Hodgkin lymphoma 12/08/2019 Overview (03/30/2020): Diagnosed in 1976 at the age of 16 years with Hodgkin's disease with a high right neck presentation, subtype in stage unknown. She received radiation therapy at [facility] with what from her description sounded like mantle field radiotherapy. The treatment was originally to take 1 month but secondary to treatment breaks because of uncontrollable nausea she said it took closer to 3 months. She did not receive chemotherapy. Nonrheumatic tricuspid valve regurgitation 12/02 CHB (complete heart block) (CMS/HCC) 12/02/2018 Chronic HFrEF (heart failure with reduced ejection fraction) (CMS/HCC) 12/02/2018 Status post biventricular pacemaker 10/16/2018 Overview (10/28/2018): Zayas/St Saleem BIV Pacemaker. Dx; NICM, CHF, LBBB, CHB. DOI 10/15/2018-Ramaswamy. Lamas remote monitoring. Non-rheumatic mitral regurgitation 09/16/2018 Overview (09/16/2018): Added automatically from request for surgery [id number] Dizziness 07/09/2018 H/O sinus bradycardia 04/16/2018 Pleural effusion 12/12/2017 Lipid screening 08/08/2017 Sick sinus syndrome (CMS/HCC) 10/16/2016 Overview (11/29/2016): Sick sinus syndrome Left bundle branch block (LBBB) 10/16/2016 Overview (11/29/2016): LBBB (left bundle branch block) Orthostatic hypotension 04/09/2016 Overview (10/10/2016): Hypotension, unspecified hypotension type PVC (premature ventricular contraction) 07/25/19 16 Overview (10/10/2016): Symptomatic PVCs Nonischemic cardiomyopathy (CMS/HCC) 07/25/2015 Overview (10/10/2016): Cardiomyopathy Idiopathic hypotension 07/25/2015 Overview (10/10/2016): Idiopathic hypotension Palpitations 07/25/2015 Overview (10/10/2016): Palpitations Acquired hypothyroidism 07/25/2015 Overview (10/10/2016): Hypothyroidism (acquired) Premature atrial contraction 07/25/2015 Overview (10/10/2016): PAC (premature atrial contraction) History of mitral valve repair 07/25/2015 Overview (10/10/2016): Hx of mitral valve repair Pulmonary hypertension 07/25/2015 Overview (10/10/2016): Pulmonary HTN Aortic valve insufficiency 07/25/2015 Overview (10/10/2016): Aortic valve insufficiency, unspecified etiology Pre-syncope 12/27/2014 Overview (10/10/2016): Near syncope Mitral valve insufficiency 12/27/2014 Overview (10/10/2016): Mitral regurgitation Dyspnea on exertion 02/02/2014 Overview (10/10/2016): ALVARENGA (dyspnea on exertion) Shortness of breath 05/22/2011 Migraine without aura 07/30/2008 Cervicalgia 12/07/2007 Asthma 07/07/2006 PAH (pulmonary artery hypertension) Current Treatment and Therapy Plans No current plan information found. Past Treatment and Therapy Plans No past plan information found. Lifetime Dose Tracking * Chemical Lifetime Dose Automatic Entry Manual Entr y Fluoro Time 0.202 minutes 0.202 minutes 0 minutes Air kerma at the reference point (Ka,r) 167.91 mGy 0 .91 mGy 167 mGy Resolved Problems Problem Noted Date Diagnosed Date Resolved Date Primary osteoarthritis of right hip 08/06/2021 09/10/2021
--- OUTSIDE RECORDS SUMMARY | 2024-08-26 16:18 | XMS_ITS | Clinical Summary ---
Author Organization [facility] Address [address] [place] [address] Care Team Providers Care Technology Support Analyst Name Role Phone Sung Do MD Unavailable [phone] Silvano Byrne MD Primary Care Provider [phone] Saul Marquez MD Unavailable [phone] Allergies Active Allergy Reactions Criticality Noted Date Comments Amitriptyline Cyclobenzaprine Dizziness Low 12/07/2007 Diclofenac Other (See comments) Low 05/22/2021 lightheaded Levofloxacin Dizziness Low 12/07/2007 Metaxalone Unknown,Dizziness Low 12/07/2007 Misoprostol Other (See comments) High 11/01/2019 Light headed Naproxen Dizziness Low 12/07/2007 Orphenadrine Unknown,Dizziness Low 12/07/2007 Rofecoxib Dizziness Low 12/07/2007 Tramadol Dizziness Low 12/07/2007 Medications albuterol HFA (PROVENTIL HFA,VENTOLIN HFA,PROAIR HFA) 90 mcg/actuation inhaler Inhale 2 puffs every 6 (six) hours as needed for wheezing Active fluticasone-vilante rol (BREO ELLIPTA) 100-25 mcg/dose diskus inhaler Inhale 1 puff daily Rinse mouth with water after use. Do not swallow. Active cholecalciferol (VITAMIN D-3) 2000 unit tabletIndications:V itamin D Deficiency Take 1 tablet (2,000 Units total) by mouth nightly Active letrozole (FEMARA) 2.5 mg tabletIndications:E gini Breast Cancer HR Positive and Postmenopausal Take 1 tablet (2.5 mg total) by mouth nightly 0 Active denosumab (PROLIA) 60 mg/mL syringe Inject 1 mL (60 mg total) under the skin every 6 (six) months Active aspirin 81 mg enteric coated tablet Take 1 tablet (81 mg total) by mouth daily Active multivitamin tablet daily Active levothyroxine (SYNTHROID) 50 mcg tablet 3 Active furosemide (LASIX) 20 mg tabletIndications:P leural effusion associated with pulmonary infection Take 1 tablet (20 mg total) by mouth every morning 90 tablet 3 4 Active metoprolol tartrate (LOPRESSOR) 50 mg immediate release tablet Take 1 tablet (50 mg total) by mouth 2 (two) times a day 180 tablet 3 5 Active Active Problems Problem Noted Date Diagnosed Date Cardiac resynchronization th erapy pacemaker (SORT WORKER-P) in place 03/19/2024 Aftercare following right hip joint replacement surgery 09/10/2021 Acute radiation dermatitis 03/30/2020 Adverse effect of radiation 03/30/2020 Borderline personality disorder (CMS/HCC) 2019 Overview (03/30/2020): Her sister DJ states that the patient [...] total fan radiation, radiotherapy in 1975 at [facility] in the management of Hodgkin's disease. Records were unavailable. Right partial breast radiotherapy, 50.4 Gy in 28 fractions, from 01/10/2020 thru 02/16/2020. 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 She received radiation therapy at [place] with what from her description sounded like [...] (09/16/2018): Added automatically from request for surgery [id number] Dizziness 07/09/2018 H/O sinus bradycardia 04/16/2018 Pleural [...] 12/07/2007 Asthma 07/07/2006 PAH (pulmonary artery hypertension) Resolved Problems Problem Noted Date Diagnosed Date Resolved Date Primary osteoarthritis of right hip 08/06/2021 09/10/2021 Encounters Date Type Department Care Team Description 07/19/2024 Telephone [facility] Cardiology [address] [place] [address] Micky Lozano MD 07/16/2024 Telephone [facility] Cardiology [address] [place] [address] Micky Lozano MD 06/18/2024 8:45 AM DESIGN ASSISTANT Ancillary Procedure [facility] Cardiology [address] [facility] [address] [place] [address] CHB (complete heart block) (CMS/HCC) (HCC); Cardiac resynchronization therapy pacemaker (SORT WORKER-P) in place; Nonischemic cardiomyopathy (CMS/HCC) (HCC) from Last 3 Months Surgical History Surgery Date Site/Laterality Comments MITRAL VALVE REPAIR 07/07/2007 - 07/06/2008 NECK SURGERY 07/07/1998 - 07/06/1999 LAPAROSCOPIC ENDOMETRIOSIS FULGURATION THYROIDECTOMY, PARTIAL EYE SURGERY CERVICAL DISC SURGERY BACK SURGERY CARDIAC SURGERY BREAST BIOPSY 10/22/2019 Right BREAST LUMPECTOMY 11/05/2019 - 12/05/2019 Right INSERT / REPLACE / REMOVE PACEMAKER 3 years ago TOTAL HIP ARTHROPLASTY 08/27/2021 Right Medical History Medical History Date Comments Hx Other Medical Arrhythmias (h/ o post-op A. Fib) Hx Other Medical Valvular Heart Disease s/p MV repair Hx Other Medical Cardiomyopathy Hx Other Medical Depression, wit h Anxiety Endometriosis Mitral valve insufficiency Cardiomyopathy (HCC) ALVARENGA (dyspnea on exertion) Mitral valve regurgitation PONV (postoperative nausea a nd vomiting) Asthma Hypothyroidism Arthritis CHF (congestive heart failur e) (CMS/HCC) (HCC) Hodgkin's disease of lymph n odes of multiple sites (HCC) 1977 neck Hodgkin's disease (HCC) Anemia Anxiety Heart murmur Migraines Carcinoma of upper-outer sonia drant of right breast in female, estrogen receptor positive (HCC) 12/08/2019 right lumpectomy w radiation History of radiation therapy 12/2019 rig ht breast ca Family History Medical History Relation Name Comments Cancer Brother COPD Father COPD; Alzheimer's disease Mother Alzheime r's Disease; Arthritis Other Diabetes Other Gout Other Hypertension Other Seizures Other Stroke Other Cancer Paternal Grandfather Breast cancer Paternal Grandmother Cancer Paternal Grandmother Ovarian cancer Neg Hx Thyroid cancer Neg Hx Relation Name Status Comments Brother Father Maternal Grandfather Maternal Grandmother Mother Other Paternal Grandfather Paternal Grandmother Social History Tobacco Use Types Packs/Day Years Used Date Smoking Tobacco: Never Smokeless Tobacco: Never Tobacco Cessation:Counseling Given: Not Answered Alcohol Use Standard Drinks/Week Comments Never 0 (1 standard drink = 0.6 oz pur e alcohol) AUDIT-C Answer Date Recorded Q1: How often do you have a drink containing alc ohol? Never 08/27/2021 Average Number of Drinks Not on file 022 Frequency of Binge Drinking Not on file 08/08 Comments No Sex and Gender Information Value Date Recorded Sex Assigned at Not on file Legal Sex Female 12:19 AM DESIGN ASSISTANT Gender Identity Not on file Sexual Orientation Not on file Occupation Industry Job Start Date Job End Date Retired Not on file Not on file Not on file Obstetrics History Para Term AB IAB SAB Ectopic Multiple Livin g Live Births 0 0 0 0 0 0 0 0 0 0 0 Last Filed Vital Signs Vital Sign Reading Time Taken Comments Blood Pressure 110/70 03/19/2024 2:23 PM CDT Pulse 78 03/19/2024 2:23 PM CDT Temperature 36.5 C (97.7 F) 08/28/2021 11:00 AM DESIGN ASSISTANT Respiratory Rate 16 01/21/2023 10:15 AM CDT Oxygen Saturation 96% 03/19/2024 2:23 PM CDT Inhaled Oxygen Concentration - - Weight 55.9 kg (123 lb 3.2 oz) 03/19/2024 2:23 P M CDT Height 162.6 cm (5' 4 ) 12/29/2023 2:26 PM CDT Body Mass Index 21.15 12/29/2023 2:26 PM CDT Plan of Treatment Health Maintenance Due Date Last Done Comments Cervical Cancer Screening 1961 Colon Cancer Screening-Colonoscopy 1961 Depression Screening 1961 Hepatitis B Screening 1979 Regular Well Visit/Exam 18-64 1979 Covid-19 Vaccine (2 - Pfizer risk series) 09/26/2020 09/05/2020 Influenza Vaccine (#1) 2024 02/29/2020 Breast Cancer Screening-Mammogram 07/09/2024 07/09/2023, 07/09/2023, 06/13/2022, Additional history exists Pneumococcal vaccine <65 (3 of 3 - PPSV23, PCV20 or PCV21) 02/24/2025 02/25/2020, 06/20/2015 DTaP/Tdap/Td Vaccine (2 - Td or Tdap) 02/28/2030 02/29/2020 Hepatitis C Screening Completed 06/02/2019 Zoster Vaccine Completed 07/02/2023, 02/29/2020 Medical Devices Implanted Type Area Psychological Science Professor Device Identifier Shelf Expiration Date Model / Serial / Lot Bard Peripheral Vascular [id number] Ultraclip Bard 17ga 10cm 2 Trigger Permanent Ultrasound - [id number] - [id number] Implanted:Qty: 1 on 10/22/2019 by Anthony Ambrosio MD at [facility] Breast Right: Breast Bard Peripheral Vascular 05/03/2022 [id number] / [id number] / [employer] 2088tc/52 Tendril Sts 6fr 52cm Is-1 Connector Active Fixation Bipolar Soft - [id number] - [id number] Implanted:Qty: 1 on 10/15/2018 by Jeffrey Stafford MD at [facility] Lead [employer] [id number] 09/03/2021 2088TC/52 / [id number] / [employer] 2088tc/46 Tendril Sts 6fr 46cm Is-1 Connector Bipolar Active Fixation - [id number] - [id number] Implanted:Qty: 1 on 10/15/2018 by Jeffrey Stafford MD at [facility] Lead [employer] [id number] 05/06/2021 2088TC/46 / [id number] / [employer] 1458q/86 Quartet 5fr [id number] 4 Electrode Is-4 Connector Steerable Tip - [id number] - [id number] Implanted:Qty: 1 on 10/15/2018 by Jeffrey Stafford MD at [facility] Lead [employer] [id number] 09/03/2021 1458Q/86 / [id number] / [employer] [id number] Quadra Allure Mp Rf [id number] Is4-Llll Is-1 Connector Thk6mm - [id number] - [id number] Implanted:Qty: 1 on 10/15/2018 by Jeffrey Stafford MD at [facility] Pacemaker [employer] [id number] 03/06/2020 [id number] / [id number] / Daig [employer] [id number] Angio-Seal Vip Bondek-Plus 6fr .035in 70cm Hemostatic Latex Free - [id number] Implanted:Qty: 1 on 09/23/2018 by Vivek Ruiz MD at [facility] [employer] 06/05/2019 [id number] / / [id number] [employer] [id number] Dante 52mm Sector Hip Shell Acetabular Gription Sterile Latex Free - [id number] Implanted:Qty: 1 on 08/27/2021 by Saul Marquez MD at [facility] Right: Hip [employer] 03/06/2031 [id number] / / [id number] [employer] [id number] Dante 52mm 36mm Hip 10d +4mm Liner Acetabular Altrx Sterile Latex Free - [id number] Implanted:Qty: 1 on 08/27/2021 by Saul Marquez MD at [facility] Right: Hip [employer] 07/06/2026 [id number] / / [id number] [employer] [id number] Dante 6.5mm 35mm Acetabular Cancellous Screw Bone Sterile - [id number] Implanted:Qty: 1 on 08/27/2021 by Saul Marquez MD at [facility] Right: Hip [employer] 06/05/2031 0 / / [id number] [employer] [id number] Actis 99mm Collar Hip 2 Standard Offset Stem Femoral - [id number] Implanted:Qty: 1 on 08/27/2021 by Saul Marquez MD at [facility] Right: Hip [employer] 05/06/2028 [id number] / / [id number] [employer] [id number] Articul/Juma 36mm Cementless M Specification No Skirt Slovenian Neck Latex Free - [id number] Implanted:Qty: 1 on 08/27/2021 by Saul Marquez MD at [facility] Right: Hip [employer] 08/06/2025 [id number] / / [id number] Procedures Procedure Name Priority Date/Time Associated Diagnosis Comments DEVICE CHECK - REMOTE Routine 06/18/2024 8:27 AM DESIGN ASSISTANT CHB (complete heart block) (CMS/HCC) (HCC) Cardiac resynchronization therapy pacemaker (SORT WORKER-P) in place Nonischemic cardiomyopathy (CMS/HCC) (HCC) SCREENING MAMMOGRAM BILATERAL W LASWON Schedule Routine, Read Routine (OP Routine) 06/13/2022 9:56 AM DESIGN ASSISTANT Encounter for screening mammogram for malignant neoplasm of breast HEPATITIS C RNA, QUANTITATIVE, PCR Routine 06/02/2019 11:44 AM DESIGN ASSISTANT from Last 3 Months or Most Recently Relevant to Health Maintenance Results * DEVICE CHECK - REMOTE (06/18/2024 8:27 AM DESIGN ASSISTANT) Anatomical Region Laterality Modality Other Narrative 06/21/2024 4:52 PM DESIGN ASSISTANT Table formatting from the original result was not included. Patient ID: Yusuf Parish is a 63 y.o. female. This patient has a(n) Zayas cardiac resynchronization therapy pacemaker. They had a routine remote transmission on 06/18/2024. Device implant indications: NICM, CHB Interrogation of the patient's device demonstrates the following: Presenting EGM: /BP Mode: DDD 70/120 bpm Device Settings Right Atrium Right Ventricle Left Ventricle (LV1/LV2) Sensitivity 0.4 mV Auto Pacing output 1.5 V @ 0.4 ms 1.5 V @ 0.4 ms 1.5 V @ 1.5 ms / 1.75 V @ 1.5 ms Testing Measurements Right Atrium RA previous/trend Right Ventricle RV previous/trend Left Ventricle (LV1/LV2) LV previous/trend (LV1/LV2) Sensitivity 1.0 mV 0.8 mV Nor measured Paced Impedance 410 ohms 400 ohms 450 ohms 440 ohms 590 ohms 590 ohms Pacing threshold 0.625 V @ 0.4 ms 0.75 V @ 0.4 ms Not measured 0.75 V @ 0.4 ms Not measured/Not measured 0.5 V @ 1.5 ms / 0.75 V @ 1.5 ms Pacing % <1% 2.6% >99% SORT WORKER >99% SORT WORKER Battery Status: 3.7 months to CARLOS. Episodes last 90 days: None Comments: Programming appropriate for device measurements. Measured data stable. Nearing CARLOS. See attached report. Medications: Anticoagulant(s): n/a Antiarrhythmic(s): metoprolol tartrate Plan: Refer to EP prior to generator change. Kayy Carbone RN us Anthony Hinds MD [facility] Final Result * Screening Mammogram Bilateral W Lawson (06/13/2022 9:56 AM DESIGN ASSISTANT) Anatomical Region Laterality Modality Breast Bilateral Mammography 06/13/2022 12:5 9 PM DESIGN ASSISTANT Impressions 06/13/2022 12:59 PM DESIGN ASSISTANT There is no mammographic evidence of malignancy. A 1 year screening mammogram is recommended. BI-RADS: 2 - Benign. The patient has been or will be contacted. The patient will be entered into a reminder system with a target due date of 1 year for her next mammogram. Electronically signed by: Prakash Rendon M.D. Narrative 06/13/2022 12:59 PM DESIGN ASSISTANT EXAMINATION: SCREENING MAMMOGRAM BILATERAL W LAWSON ORDERING HEALTHCARE PROVIDER: HECTOR PASCUAL HISTORY: Routine screening mammography. COMPARISON: 06/05/2021, 10/22/2019, 05/22/2020, 10/13/2019, 03/13/2019, 09/12/2017 TECHNIQUE: CC and MLO views of the bilateral breasts were obtained with digital technique using breast tomosynthesis with C view. Computer aided detection was utilized. FINDINGS: DENSITY: The tissue of the bilateral breasts is heterogeneously dense, which may obscure small masses. BREASTS: There is a clip in the upper outer right breast. There are no suspicious masses, suspicious calcifications, or other suspicious findings in either breast. There has been no suspicious interval change. Hector Pascual MD IMG MAMMO PROCEDURES Fin al Result * Hepatitis C (HCV) RNA PCR, quantitative (06/02/2019 11:44 AM DESIGN ASSISTANT) HCV RNA qn Undetected Undetected IUnits/mL LORY SAPP (VOLODYMYR) Comment: Result in log IU/mL is Undetected. ADDITIONAL INFORMATION The quantification range of this assay is 15 to 100,000,000 IU/mL (1.18 log to 8.00 log IU/mL). Testing was performed using the lester HCV test ([employer] with the lester [id number] System. Test Performed by: [place] [address] Java Tech: Raheem Cornejo M.D. Ph.D.; CLIA# [id number] Blood specimen (specimen) 06/02/2019 11:44 AM DESIGN ASSISTANT 06/02/2019 12:08 PM DESIGN ASSISTANT Mer Szymanski MD LAB MICROBIOLOGY - [facility] ORDERABLES Final Result LORY SAPP (VOLODYMYR) [address] [facility] Department [place] [address] from Last 3 Months or Most Recently Relevant to Health Maintenance Insurance MEDICARE IDMS MEDICARE [facility] MEDICARE IDPA Advance Directives For more information, please contact: [phone] Documents on File Type Date Recorded Patient Industry Operations Investigator Expl anation ADVANCE DIRECTIVE 08/27/2021 9:10 AM Power of Alternative Financing Specialist-Medical Power of Alternative Financing Specialist 05/22/2021 2:02 PM ADVANCE DIRECTIVE 10/21/2018 3:46 AM * Full Code (Latest Code Status on File) Date Activated Date Inactivated Comments 08/27/2021 3:17 PM 08/28/2021 7:13 PM * Full Code Date Activated Date Inactivated Comments 10/14/2018 1:15 PM 10/16/2018 5:33 PM * Full Code Date Activated Date Inactivated Comments 09/23/2018 3:51 PM 09/24/2018 12:06 AM * Full Code Date Activated Date Inactivated Comments 12/22/2017 9:41 AM 12/23/2017 2:52 AM Care Teams Technology Support Analyst Relationship Specialty Start Date End Date Silvano Byrne MD [address] [address] PCP - General Family Medicine 03/30/20 Sung Do MD Consulting Physician Cardiology 10/16/18 Saul Marquez MD [address] [address] Surgeon Orthopedic Surgery 08/28/21
--- OUTSIDE RECORDS SUMMARY | 2024-08-26 16:18 | XMS_ITS | Clinical Summary ---
Author Organization [facility] Address [address] [place] [address] Phone Care Team Providers Care Vacuum Cleaner Assembler Name Role Phone Juan Davdi Ashby MD Unavailable Hector Rendon MD Unavailable Rohit Cardoso MD Unavailable Sung Do MD Unavailable Shawn Alves MD Unavailable Nati Garcia [facility] Primary Care Pro vider Allergies Active Allergy Reactions Criticality Noted Date Comments Diclofenac Other (see Comments) Medium 11/01/2019 Light headed Cyclobenzaprine Other (see Comments) High 11/01/2019 Light headed Levofloxacin Palpitations High 11/01/2019 Misoprostol Other (see Comments) High 11/01/2019 Light headed Naproxen Other (see Comments) High 11/01/2019 Light headed Orphenadrine Other (see Comments) High 11/01/2019 Light headed Metaxalone Other (see Comments) 11/01/2019 Light headed Rofecoxib Other (see Comments) High 11/01/2019 Light headed Medications aspirin EC 81 MG Tablet Delayed Response Take 81 mg by mouth. MAY CONTINUE PER DR ASHBY Active BREO ELLIPTA 100-25 MCG/INH AEROSOL POWDER, BREATH ACTIVATED INHALE 1 PUFF BY MOUTH DIRECTED ONCE A DAY 0 Active furosemide (LASIX) 20 MG Tablet TAKE 1 TABLET BY MOUTH EVERY DAY IN THE MORNING 7 Active metoprolol tartrate (LOPRESSOR) 25 MG Tablet Take 50 mg by mouth 2 times daily. Active Cholecalciferol (VITAMIN D-3 PO)Indications: Osteopenia of multiple sites Take by mouth. Active ProAir HFA 108 (90 Base) MCG/ACT Aerosol Solution INHALE 1-2 PUFFS BY MOUTH EVERY 6 HOURS NEEDED FOR WHEEZING 8.5 Inhaler 1 Active Additional Information Patient taking differently: Indications: prn, Reported on 03/27/2022 Denosumab (PROLIA) 60 MG/ML Solution Prefilled Syringe 60 mg by Subcutaneous route every 180 days. Active acetaminophen (TYLENOL) 325 MG Tablet Take 650 mg by mouth every 4 hours as needed for Mild or more severe pain or Fever. Active Multiple Vitamin (Multi-Vitamin) Tablet Take 1 Tablet by mouth daily. Active levothyroxine (SYNTHROID) 50 MCG Tablet Take 1 Tablet by mouth daily. 90 Tablet 1 4 Active letrozole (FEMARA) 2.5 MG Tablet TAKE 1 TABLET BY MOUTH EVERY DAY 90 Tablet 1 4 Active Active Problems Problem Noted Date Diagnosed [...] (02/16/2020): At least mantle, and possibly total fna radiation, radiotherapy in 1975 at [facility] in the management of Hodgkin's disease. Records were unavailable. Right partial breast radiotherapy, 50.4 Gy in 28 fractions, from 01/10/2020 thru 02/16/2020. Personal history of Hodgkin lymphoma 12/08/2019 Overview (02/16/2020): Diagnosed in 1976 at the age of 16 years with Hodgkin's disease with a high right neck presentation, subtype in stage unknown. She received radiation therapy at [place] with what from her description sounded like [...] from 12/28/2019:Stage IA(pT1b, pN0(sn), cM0, G2, ER+, CT+, HER2-, Oncotype DX score: 17) - Signed by Rohit Cardoso MD on 12/28/2019 Overview (02/16/2020): Pathological stage IA ER/CT positive, HER2 negative an Oncotype DX score [...] Age-related osteoporosis wit hout current pathological fracture Resolved Problems Problem Noted Date Diagnosed Date Resolved Date CHB (complete heart block) 12/02/2018 1 08/26/2020 Left bundle branch block (LBBB) 10/16/2016 02/27/2020 Overview (02/25/2020): LBBB (left bundle branch block) Sick sinus syndrome 10/16/2016 06/25/20 21 Overview (02/25/2020): Sick sinus syndrome Encounter for radiotherapy 0 02/16/2020 Encounters Date Type Department Care Team Description 07/16/2024 Patient Outreach [facility] [address] [place] [address] Christina Ramirez, OUTBOUND TELEMARKETING REPRESENTATIVE Care Management 07/11/2024 [facility] [address] [place] [address] Maile Decker PAC 07/09/2024 10:37 AM INSULATION SPRAYER - 07/09/2024 11:59 PM INSULATION SPRAYER [facility] [address] [place] [address] Maile Decker, PAC Discharge Disposition: Discharged to home or Selfcare 07/09/2024 Travel 07/05/2024 Patient Outreach [facility] [address] [place] [address] Christina Ramirez, OUTBOUND TELEMARKETING REPRESENTATIVE Care Management 06/23/2024 Refill [facility] [address] [place] [address] Hector Rendon MD Medication Refill from Last 3 Months Immunizations Immunization Administration Dates Next Due Covid-19, Mrna, Lnp-s, Pf, 30 Mcg/0.3 Ml Dose (Sol tang) 09/05/2020 Influenza Vaccine, Quadrivalent, PF 02/29/2020 Pneumococcal Vaccine - 13 Valent 06/20/2015 Pneumococcal Vaccine Adult - 23 Valent 0 TDAP Vaccine 02/29/2020 Zoster Vaccine Recombinant 07/02/2023,02/29/2020 Family History Medical History Relation Name Comments Cancer Brother 1 Colon Cancer Brother 1 Passed from col on cancer. Depression Brother 2 Other-comment Brother 2 Suicide Cancer Father kidney Chronic Obstructive Pulmonary Disease Father Kidney Cancer Father Other-comment Father Gastrointestin al bleed Alzheimer's Disease Mother Aneurysm Mother brain- clipped Cancer Mother skin cancer on lip Skin Cancer Mother Cancer Paternal Grandfather Melanom a Melanoma Paternal Grandfather Passed from melanoma. Breast Cancer Paternal Grandmother Passed from breast cancer. Cancer Paternal Grandmother Breast No Known Problems Sister 1 Diabetes Sister 2 squamous cell s kin cancer Other-comment Sister 2 Fibromyalgia, gallbladder issues and psoriasis Relation Name Status Comments Brother 1 Brother 2 Father Maternal Grandfather Maternal Grandmother Mother Paternal Grandfather Paternal Grandmother Sister 1 Alive Sister 2 Alive Social History Tobacco Use Types Packs/Day Years Used Date Smoking Tobacco: Never Smokeless Tobacco: Never Tobacco Cessation:Counseling Given: No Alcohol Use Standard Drinks/Week Comments Not Currently 0 (1 standard drink = 0.6 oz pur e alcohol) Occasionally on holidays. [facility] Utilities Answer Date Recorded In the past 12 months has e [employer], gas, oil, or water [employer] threatened to shut off services in your home? No 03/29/2024 Social Connection and Isolation Panel [NHANES] A nswer Date Recorded In a typical week, how many times do you talk on the phone with family, friends, or neighbors? Once a week 03/29/2024 Frequency of Social Gatherings with Friends and Family Not on file 03/29/2024 Attends Catholic Services Not on file 03/29 Active Member of Clubs or Organizations Not on f ile 03/29/2024 Attends Club or Organization Meetings Not on ankita e 03/29/2024 Marital Status Not on file 03/29/2024 AUDIT-C Answer Date Recorded Q1: How often do you have a drink containing alc ohol? Never 03/29/2024 Average Number of Drinks Not on file 024 Frequency of Binge Drinking Not on file 03/08 Overall Financial Resource Strain (CARDIA) Answe r Date Recorded How hard is it for you to pa y for the very basics like food, housing, medical care, and heating? Not hard at all 03/29/2024 PHQ-2 Answer Date Recorded Total Score - Questions 1-9 0 04/0 11/2021 [facility] - Occupational Stress Questionnaire Answer Date Recorded Do you feel stress - tense, restless, nervous, or anxious, or unable to sleep at night because your mind is troubled all the time - these days? To some extent 03/29/2024 Exercise Vital Sign Answer Date Recorde d On average, how many days pe r week do you engage in moderate to strenuous exercise (like a brisk walk)? 7 days 03/29/2024 On average, how many minutes do you engage in exercise at this level? 30 min 03/29/2024 Hunger Vital Sign Answer Date Recorded Within the past 12 months, y ou worried that your food would run out before you got the money to buy more. Never true 03/29/20 24 Ran Out of Food in the Last Year Not on file 03/29/2024 PRAPARE - Transportation Answer Date Re corded In the past 12 months, has l ack of transportation kept you from medical appointments or from getting medications? No 03/29/2024 Lack of Transportation (Non-Medical) Not on file 03/29/2024 Housing Stability Vital Sign Answer Amandeep e Recorded In the last 12 months, was t here a time when you were not able to pay the mortgage or rent on time? 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 file Not on file No t on file Last Filed Vital Signs Vital Sign Reading Time Taken Comments Blood Pressure 138/62 03/29/2024 10:41 AM CDT Pulse 82 03/29/2024 10:41 AM CDT Temperature 36.7 C (98.1 F) 03/29/2024 10:41 AM CDT Respiratory Rate 12 03/29/2024 10:41 AM CDT Oxygen Saturation 98% 03/29/2024 10:41 AM CDT Inhaled Oxygen Concentration - - Weight 55.8 kg (123 lb) 03/29/2024 10:41 AM CDT Height 162.6 cm (5' 4 ) 03/24/2024 1:46 PM CDT Body Mass Index 21.11 03/24/2024 1:46 PM CDT Plan of Treatment Upcoming Encounters Date Type Department Care Team (Late st Contact Info) Description 09/14/2024 1:00 PM CD[facility] [address] [place] [address] Discharge Disposition: Discharged to home or Selfcare 09/21/2024 11:30 AM CDT [facility] [address] [place] [address] Leighann Crow, RIVER CROSSING SUPERVISOR, AIR LIAISON AND SPECIAL STAFF [address] [place] [address] Discharge Disposition: Discharged to home or Selfcare 09/27/2024 11:30 AM CDT Office Visit [facility] - Internal Medicine [place] [address] Nati Garcia, PAC [address] [place] [address] Health Maintenance Due Date Last Done Comments Cologuard 2011 Immunochemical Fecal Occult Blood 2011 Respiratory Syncytial Virus (RSV) Immunization (Adult) (1 - Risk 60-74 years 1-dose series) 2021 Pneumococcal Immunization (50+ years) (3 of 3 - PPSV23, PCV20 or PCV21) 02/24/2025 02/25/2020, 06/20/2015 Mammogram 07/09/2025 07/09/2024, 09/2023, 06/13/2022, Additional history exists Pap Smear 12/22/2026 12/23/2023, 01/28/2018 Colonoscopy 06/27/2027 06/27/2022, 06/27/2022 Colorectal Cancer Screening 06/27/2027 Cervical Cancer Screening (CCS) 12/22/2028 HPV/Cotest 12/22/2028 12/23/2023, 01/28/2018 Td Immunization Every 10 Years (Adults With 1 Tdap) 02/28/2030 02/29/2020 06/27/2022 Hepatitis C Virus (HCV) Screening Completed 06/02/2019 Pneumococcal Immunization Combined Discontinued 02/25/2020, 06/20/2015 DTaP/Tdap/Td Immunization Discontinued 02/29/2020, Influenza Immunization Discontinued 02/29/2020 SARS-COV-2 Immunization Discontinued 09/27/2020, 09/05 Zoster Immunization Completed 07/02/2023, Mammogram Unilateral Discontinued 07/09/2024, 07/09/2023, 06/13/2022, Additional history exists Hepatitis B Immunization Aged Out No longer eligible based on patient's age to complete this topic Meningococcal Immunization (ACWY) Aged Out No longer eligible based on patient's age to complete this topic Rotavirus Immunization Aged Out No lo nger eligible based on patient's age to complete this topic Goals Goal Patient Goal Type Associated Problems Recent Progress Patient-Stated? Author Healthy Lifestyle Healthy Lifestyle No Carolyn Bhakta, RN Note: Pace/increase activity Procedures Procedure Name Priority Date/Time Associated Diagnosis Comments KEILY SCREENING BILATERAL DIGITAL W CAD W BETHANY Routine 07/09/2024 11:45 AM INSULATION SPRAYER Carcinoma of upper-outer quadrant of right breast in female, estrogen receptor positive (HCC) Encounter for screening mammogram for malignant neoplasm of breast HUMAN PAPILLOMA VIRUS (HPV) Routine 12/23/2023 3:33 PM CDT Encounter for well woman exam with routine gynecological exam PATHOLOGY CYTOLOGY SENIOR INSIGHT MANAGER Routine 12/23/2023 3:33 PM CDT Encounter for well woman exam with routine gynecological exam from Last 3 Months or Most Recently Relevant to Health Maintenance Results * KEILY SCREENING BILATERAL DIGITAL W CAD W BETHANY (07/09/2024 11:45 AM INSULATION SPRAYER) Anatomical Region Laterality Modality breast Bilateral Mammography 07/09/2024 10:5 3 AM INSULATION SPRAYER Narrative 07/10/2024 7:17 AM INSULATION SPRAYER - KEILY SCREENING BILATERAL DIGITAL W CAD W BETHANY BILATERAL DIGITAL SCREENING MAMMOGRAM 3D/2D WITH CAD WITH MEDIOLATERAL OBLIQUE CRANIOCAUDAL: 07/09/2024 The study was acquired using digital technology and interpreted from soft copy. Current study was also evaluated with ICAD version 7.2. 2D digital mammographic views, as well as 3D digital tomosynthesis were performed in the CC and MLO projections. CLINICAL: Routine screening. Patient has no complaints. Personal history of right breast cancer with lumpectomy and Hodgkin's lymphoma. 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 She has reduced range of motion. Paternal grandmother had breast cancer. COMPARISONS: Comparison is made to exams dated: 07/09/2023 [facility], 06/13/2022, and 06/05/2021 [facility] BREAST TISSUE:The breasts are heterogeneously dense, which may obscure small masses. FINDINGS: Port a cath projects in the left axilla. There are benign calcifications in the left breast. There also are benign post operative findings in the right breast. No significant masses, calcifications, or other findings are seen in either breast. There has been no significant interval change. IMPRESSION: BENIGN There is no mammographic evidence of malignancy. A 1 year screening mammogram is recommended. A letter will be sent to the patient with these results. The patient will be entered into a reminder system with a target due date of 1 year for her next screening exam. Electronically signed by: Damaris bang/penrad:07/09/2024 17:02:14 Display Artist(s): RT Alexus(R)(M), [facility] letter sent: Normal Exam Reading location: [facility] Mammogram BI-RADS: Category 2: Benign Procedure Note Damaris Villalobos MD - 07/10/2024 - KEILY SCREENING BILATERAL DIGITAL W CAD W BETHANY BILATERAL DIGITAL SCREENING MAMMOGRAM 3D/2D WITH CAD WITH MEDIOLATERAL OBLIQUE CRANIOCAUDAL: 07/09/2024 The study was acquired using digital technology and interpreted from soft copy. Current study was also evaluated with ICAD version 7.2. 2D digital mammographic views, as well as 3D digital tomosynthesis were performed in the CC and MLO projections. CLINICAL: Routine screening. Patient has no complaints. Personal history of right breast cancer with lumpectomy and Hodgkin's lymphoma. 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 She has reduced range of motion. Paternal grandmother had breast cancer. COMPARISONS: Comparison is made to exams dated: 07/09/2023 [facility], 06/13/2022, and 06/05/2021 [facility]. BREAST TISSUE:The breasts are heterogeneously dense, which may obscure small masses. FINDINGS: Port a cath projects in the left axilla. There are benign calcifications in the left breast. There also are benign post operative findings in the right breast. No significant masses, calcifications, or other findings are seen in either breast. There has been no significant interval change. IMPRESSION: BENIGN There is no mammographic evidence of malignancy. A 1 year screening mammogram is recommended. A letter will be sent to the patient with these results. The patient will be entered into a reminder system with a target due date of 1 year for her next screening exam. Electronically signed by: Damaris bang/penrad:07/09/2024 17:02:14 Display Artist(s): RT Alexus(R)(M), [facility] letter sent: Normal Exam Reading location: [facility] Mammogram BI-RADS: Category 2: Benign us Maile Decker PAC IMG MAMMO ORDERABLES Bonnie l Result * PATHOLOGY CYTOLOGY SENIOR INSIGHT MANAGER (12/23/2023 3:33 PM CDT) SPECIMEN ADEQUACY A scant cellular component is noted. Endocervical/transf ormation zone component is present. 01/05/2024 2:13 PM CDT [facility] DESCRIPTIVE DIAGNOSIS NEGATIVE FOR INTRAEPITHELIAL LESIONS OR MALIGNANCY. 01/05/2024 2:13 PM CDT [facility] Automated Examination Analysis of this sample has been assisted by an automated imaging and review system ([employer] Imaging System, [employer], [place], [place]). This case is further evaluated and finalized by a oven dumper and/or pathologist. 01/05/2024 2:13 PM CDT [facility] Disclaimer The PAP smear is a screening test designed to detect cancerous or precancerous cells of the uterine cervix. It is one of the best means available for detection of cervical cancer but still carries an inherent false-negative rate. The consequences of a false-negative PAP result can be minimized by adhering to current screening guidelines. The following are general guidelines recommended by the ACS, ASCP, ASCCP, and ACOG: PAP testing is recommended every three years for women 21-29, Co-Testing , a PAP test in conjunction with an HPV (Human Papillomavirus) test for women ages 30-65, and no PAP or HPV testing for women under the age of 21 or older than 65 unless clinically indicated. 01/05/2024 2:13 PM CDT [facility] Case Report Gynecologic Cytology Report Case: [id number] Authorizing Provider: Lanie Sol APRN, AIR LIAISON AND SPECIAL STAFF Collected: 12/23/2023 03:33 PM Ordering Location: [facility] - Family Received: 12/23/2023 03:33 PM Medicine - Volodymyr First Screen: Anneliese Miller Specimen: TP Screen, Cervix/Endocervix 01/05/2024 2:13 PM CDT [facility] Other CERVIX UTERI STRUCTURE / Unknown Non-Phlebotomy Collection / Unknown 12/23/2023 3:33 PM CDT 12/23/2023 3:33 PM CDT us Lanie Sol APRN, CNP PATHOLOGY/CYTOLOGY ORDER JOHN Final Result [facility] [address] [place] [address], * HUMAN PAPILLOMA VIRUS (HPV) (12/23/2023 3:33 PM CDT) HPV TYPE 16 NEGATIVE NEGATIVE 12/24/2023 2:11 PM CDT [facility] Comment: A negative high-risk HPV result does not exclude the possibility of future cytologic HSIL or underlying CIN2-3 or cancer. The presence of PCR inhibitors may cause false negative or invalid results. If concentrations of whole blood in the sample exceed 1.5% (dark red or brown coloration) in PreservCyt solution, there is a likelihood of obtaining a false-negative result. HPV TYPE 18 NEGATIVE NEGATIVE 12/24/2023 2:11 PM CDT [facility] Comment: A negative high-risk HPV result does not exclude the possibility of future cytologic HSIL or underlying CIN2-3 or cancer. The presence of PCR inhibitors may cause false negative or invalid results. If concentrations of whole blood in the sample exceed 1.5% (dark red or brown coloration) in PreservCyt solution, there is a likelihood of obtaining a false-negative result. HPV OTHER HIGH RISK TYPES, PCR NEGATIVE NEGATIVE 12/24/2023 2:11 PM CDT [facility] Comment: The following Other High Risk types were not detected: 31, 33, 35, 39, 45, 51, 52, 56, 58, 59, 66, and 68. A negative high-risk HPV result does not exclude the possibility of future cytologic HSIL or underlying CIN2-3 or cancer. The presence of PCR inhibitors may cause false negative or invalid results. If concentrations of whole blood in the sample exceed 1.5% (dark red or brown coloration) in PreservCyt solution, there is a likelihood of obtaining a false-negative result. HPV ORDER BE USED FOR SCREENING OR DIAGNOSTIC SCREENING 12/24/2023 2:[address] [facility] Other Non-Phlebotomy Collection / Unknown 12/23/2023 3:33 PM CDT 12/23/2023 3:33 PM CDT Narrative [facility] - 12/24/2023 2:11 PM CDT Performed by Real-Time Polymerase Chain Reaction (PCR) on the [employer] 4800. This assay has been validated for use with post-aliquot samples from the [employer] T5000 processor. 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 Power of Supervisor Molding for Health Care 11/11/2019 6:43 AM POA Care Teams Vacuum Cleaner Assembler Relationship Specialty Start Date End Date Nati Garcia PAC [address] [place] [address] PCP - General Physician Drafting Layout Man 03/24/24 Juan David Ashby MD Consulting Physician General Surgery 12/27/19 Hector Rendon MD [address] [place] [address] Consulting Physician Medical Oncology 12/27/19 Rohit Cardoso MD [address] [place] [address] Consulting Physician Radiation Oncology 12/27/19 Sung Do MD [address] [address] Consulting Physician Cardiovascular Disease - Cardiology 12/28/19 Shawn Alves MD [address] [address] Consulting Physician Colon and Rectal Surgery 05/10/22
--- OUTSIDE RECORDS SUMMARY | 2024-08-26 16:18 | XMS_ITS | Encounter Summary ---
Author Organization [facility] Address [address] [place] [address] Phone Care Team Providers Care Contact Center Assistant Name Role Phone Mer Szymanski MD Primary Care Provider [phone] Juan David Ashby MD Unavailable Hector Rendon MD Unavailable Rohit Cardoso MD Unavailable Sung Do MD Unavailable Lily Guerrero MD Primary Care Provider Silvano Byrne MD Primary Care Provider [phone] Shawn Alves MD Unavailable Nati Garcia [facility] Primary Care Pro vider Encounter Details Date Type Department Care Team (Late st Contact Info) Description 01/12/2020 [facility] [address] [place] [address] Rohit Cardoso MD [address] [place] [address] Social History Tobacco Use Types Packs/Day Years [...] 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 No / Unsure 01/14/2020 10:59 AM CDT documented as of this encounter Plan of Treatment Upcoming Encounters Date Type Department Care Team (Late st Contact Info) Description 09/14/2024 1:00 PM CDT [facility] [address] [place] [address] Discharge Disposition: Discharged to home or Selfcare 09/21/2024 11:30 AM CDT [facility] [address] [place] [address] Leighann Crow, CONSUMER CREDIT COUNSELOR, QUOTE CLERK [address] [place] [address] Discharge Disposition: Discharged to home or Selfcare 09/27/2024 11:30 AM CDT Office Visit [facility] - Internal Medicine - [place] [address] [place] [id number] Nati Garcia, PAC [address] [place] [address] documented as of this encounter Visit Diagnoses Not on filedocumented in this encounter Care Teams Contact Center Assistant Relationship Specialty Start Date End Date Mer Szymanski MD [address] [place] [address] PCP - General Family Medicine 11/01/19 01/23/20 Lily Guerrero MD [address] [place] [address] PCP - General Family Medicine 01/24/20 02/24/20 Silvano Byrne MD [address] [facility] [address] [place] [address] PCP - General Family Medicine 02/25/20 03/23/24 Nati Garcia, [facility] [place] [address] PCP - General Physician V Belt Curer 03/24/24 [place] [address] Consulting Physician General Surgery 12/27/19 Hector Rendon MD [address] [place] [address] Consulting Physician Medical Oncology 12/27/19 Rohit Cardoso MD [address] [place] [address] Consulting Physician Radiation Oncology 12/27/19 Sung Do MD [address] [facility] [address] [place] [address] Consulting Physician Cardiovascular Disease - Cardiology 12/28/19 Shawn Alves MD [address] [address] Consulting Physician Colon and Rectal Surgery 05/10/22 documented as of this encounter
--- OUTSIDE RECORDS SUMMARY | 2024-08-26 16:18 | XMS_ITS | Encounter Summary ---
Author Organization [facility] Healthcare Address [address] [place] [address] Care Team Providers Care Sheet Metal Shop Foreman Name Role Phone Jeremy Stinson MD Primary Care Provider [phone] Sung Do MD Unavailable [phone] Mer Szymanski MD Primary Care Provider Sung Do MD Primary Care Provider + Silvano Byrne MD Primary Care Provider [phone] Saul Marquez MD Unavailable [phone] Encounter Details Date Type Department Care Team (Late st Contact Info) Description 10/20/2018 Telephone 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 Gender Identity Not on file Sexual Orientation Not on file documented as of this encounter Plan of Treatment Not on file documented as of this encounter Visit Diagnoses Not on filedocumented in this encounter Care Teams Sheet Metal Shop Foreman Relationship Specialty Start Date End Date Jeremy Stinson MD [address] [place] [address] PCP - General 11/06/16 04/29/19 Mer Szymanski MD [address] [place] [address] PCP - General Family Medicine 04/30/19 03/28/20 Sung Do MD [address] [place] [address] PCP - General Cardiology 03/29/20 03/29/20 Silvano Byrne MD 2 [facility] [address] [address] PCP - General Family Medicine 03/30/20 Sung Do MD [address] [place] [address] Consulting Physician Cardiology 10/16/18 Saul Marquez MD [address] [place] [address] [address] Surgeon Orthopedic Surgery 08/28/21 documented as of this encounter
--- OUTSIDE RECORDS SUMMARY | 2024-08-26 16:18 | XMS_ITS | Encounter Summary ---
Author Organization [facility] Address [address] [place] [address] Phone Care Team Providers Care Breaker Up Machine Operator Name Role Phone Mer Szymanski MD Primary Care Provider [phone] Juan David Ashby MD Unavailable Hector Rendon MD Unavailable [phone] Rohit Cardoso MD Unavailable [phone] Sung Do MD Unavailable Lily Guerrero MD Primary Care Provider Silvano Byrne MD Primary Care Provider [phone] Shawn Alves MD Unavailable Nati Garcia PAC Primary Care Pro vider Reason for Referral * Radiology Services (Routine) - Closed Specialty Diagnoses / Procedures Referred By Contac t Referred To Contact Radiology Diagnoses Preop testing Procedures EKG 12 LEAD Catarino Allen MD [address] [place] [address] Phone: tel: fax: Referral ID Status Reason Start Date Expiration Date Visits Re quested Visits Authorized [id number] Closed 11/05/2019 1 1 Encounter Details Date Type Department Care Team (Late st Contact Info) Description 11/05/2019 Transcribe Orders [facility] Preop/Pacu II [address] [place] [address] Catarino Allen MD [address] [place] [address] Preop testing (Primary Dx) Social History Tobacco Use Types Packs/Day Years Used Date Smoking Tobacco: Never Smokeless Tobacco: Never Alcohol Use Standard Drinks/Week Comments Not Currently 0 (1 standard drink = 0.6 oz pur e alcohol) Sexually Active Control Partners Comments Not Currently Comments No Sex and Gender Information Value Date Recorded Sex Assigned at Not on file Legal Sex Female 8:56 PM CDT Gender Identity Not on file Sexual Orientation Not on file COVID-19 Exposure Response Date Recorded In the last month, have you been in contact with someone who was confirmed or suspected to have Coronavirus / COVID-19? No / Unsure 11/05/2019 7:26 AM CDT documented as of this encounter Plan of Treatment Upcoming Encounters Date Type Department Care Team (Late st Contact Info) Description 09/14/2024 1:00 PM CDT Lab [facility] Oncology Services [address] [place] [address] Discharge Disposition: Discharged to home or Selfcare 09/21/2024 11:30 AM CDT Office Visit [facility] Oncology Services [address] [place] [address] Leighann Crow, SR. PAYROLL PROCESSOR, BEAN ROASTER [address] [place] [address] Discharge Disposition: Discharged to home or Selfcare 09/27/2024 11:30 AM CDT Office Visit [facility] Medical Group - Internal Medicine - [place] [address] [place] [address] Nati Garcia, PAC [address] [place] [address] documented as of this encounter Results * EKG 12 LEAD (11/05/2019 11:06 AM CDT) Ventricular Rate BPM EXTERNAL EKG Atrial Rate BPM EXTERNAL EKG P-R Interval ms EXTERNAL EKG QRS Duration 120 ms EXTERNAL EKG Q-T Duration 416 ms EXTERNAL EKG QTC CALCULATION 492 ms EXTERNAL EKG P [place] degrees EXTERNAL EKG R [place] 55 degrees EXTERNAL EKG T [place] -165 degrees EXTERNAL EKG 11/05/2019 11:0 6 AM CDT Impressions EXTERNAL EKG - 11/05/2019 1:20 PM CDT Demand pacing PVC Summary: No Previous ECGs Available Confirmed by Chelita Christine [id number] on 11/05/2019 1:20:05 PM Narrative Procedure Note Shaw Merlos MD - 11/05/2019 IMPRESSION: Demand pacing PVC Summary: No Previous ECGs Available Confirmed by Chelita Christine [id number] on 11/05/2019 1:20:05 PM Catarino Allen MD IMG ECG ORDERABLES Final Resu lt Performing Organization Address City/[facility] Co de Phone Number EXTERNAL EKG * HEMOGLOBIN & HEMATOCRIT (H&H) (11/05/2019 10:55 AM CDT) HEMOGLOBIN (HGB) 14.3 12.0 - 15.8 g/dL 11/05/2019 1:04 PM CDT [facility] HEMATOCRIT (HCT) 45.4 36.0 - 47.0 % 11/05/2019 1:04 PM CDT [facility] Blood specimen (specimen) Venipuncture / Unknown 11/05/2019 10:55 AM CDT 11/05/2019 12:54 PM CDT Catarino Allen MD HEMATOLOGY ORDERABLES Final R esult [facility] [address] [place] [address] * (ABNORMAL) BASIC METABOLIC PANEL W/ CALCIUM TOTAL (11/05/2019 10:55 AM CDT) SODIUM 139 136 - 144 mmol/L 11/05/2019 1:47 PM CDT [facility] POTASSIUM 4.9 3.5 - 5.1 mmol/L 11/05/2019 1:47 PM CDT [facility] CHLORIDE 101 100 - 110 mmol/L 11/05/2019 1:47 PM CDT [facility] CO2, VENOUS 25 22 - 32 mmol/L 11/05/2019 1:47 PM CDT [facility] ANION GAP 17.9 8.0 - 20.0 mmol/L 11/05/2019 1:47 PM CDT [facility] GLUCOSE 90 70 - 99 mg/dL 11/05/2019 1:47 PM CDT [facility] BUN 20 6 - 20 mg/dL 11/05/2019 1:47 PM CDT [facility] CREATININE, BLOOD 0.67 0.60 - 1.10 mg/dL 11/05/2019 1:47 PM CDT [facility] BUN/CREATININE RATIO 30(H) 12 - 20 ratio 11/05/2019 1:47 PM CDT [facility] CALCIUM 9.8 8.9 - 10.3 mg/dL 11/05/2019 1:47 PM CDT [facility] GFR, EST. NONAFRICAN >60 >=60 11/05/2019 1:47 PM CDT [facility] GFR, EST. >60 >=60 11/05/2019 1:47 PM CDT [facility] Comment: Creatinine Clearance is the preferred criteria for selecting drug dose adjustments in renally impaired patients. The GFR is provided as additional pertinent clinical information. GFR is reported in mL/min/1.73 sq m. Blood specimen (specimen) Venipuncture / Unknown 11/05/2019 10:55 AM CDT 11/05/2019 12:53 PM CDT us Catarino Allen MD CHEMISTRY ORDERABLES Final Re sult [facility] [address] [place] [address] documented in this encounter Visit Diagnoses Diagnosis Preop testing- Primary Preoperative examination, unspecified Preop testing Preoperative examination, unspecified documented in this encounter Additional Health Concerns Infection Onset Date Last Indicated Resolved Time COVID - 19 11/11/2019 11/12/2019 11/15/2019 11:2 1 AM CDT documented as of this encounter Care Teams Breaker Up Machine Operator Relationship Specialty Start Date End Date [place] [address] PCP - General Family Medicine 11/01/19 01/23/20 Lily Guerrero MD [address] [place] [address] PCP - General Family Medicine 01/24/20 02/24/20 Silvano Byrne MD [address] [place] [address] PCP - General Family Medicine 02/25/20 03/23/24 Nati Garcia PAC [address] [place] [address] PCP - General Physician Application Performance Engineer 03/24/24 [place] [address] Consulting Physician General Surgery 12/27/19 Hector Rendon MD [address] [place] [address] Consulting Physician Medical Oncology 12/27/19 Rohit Cardoso MD [address] [place] [address] Consulting Physician Radiation Oncology 12/27/19 Sung Do MD [address] [address] Consulting Physician Cardiovascular Disease - Cardiology 12/28/19 Shawn Alves MD #[address] [address] Consulting Physician Colon and Rectal Surgery 05/10/22 documented as of this encounter
--- OUTSIDE RECORDS SUMMARY | 2024-08-26 16:18 | XMS_ITS | Referral Summary ---
Author Organization [facility] Address [address] [place] [address] Care Team Providers Care Party Plan Sales Unit Sales Leader Name Role Phone Sung Do MD Unavailable [phone] Silvano Byrne MD Primary Care Provider [phone] Saul Marquez MD Unavailable Encounters Date Type Department Care Team Description 07/19/2024 Telephone [facility] Medical [facility] Cardiology [address] [place] [address] Micky Lozano MD 07/16/2024 Telephone [facility] Cardiology [address] [place] [address] Micky Lozano MD 06/18/2024 8:45 AM FRONT DESK REPRESENTATIVE Ancillary Procedure [facility] Medical [facility] Cardiology [address] [facility] [address] [place] [address] CHB (complete heart block) (CMS/HCC) (HCC); Cardiac resynchronization therapy pacemaker (POSTBED STITCHER-P) in place; Nonischemic cardiomyopathy (CMS/HCC) (HCC) from Last 3 Months Allergies Active Allergy Reactions Criticality Noted Date [...] Diagnosed Date Cardiac resynchronization th erapy pacemaker (POSTBED STITCHER-P) in place 03/19/2024 Aftercare following right hip [...] total fan radiation, radiotherapy in 1975 at [facility] in the management of Hodgkin's disease. Records were unavailable. Right partial breast radiotherapy, 50.4 Gy in 28 fractions, from 01/10/2020 thru 02/16/2020. Carcinoma of upper-outer sonia drant of right breast in female, estrogen receptor positive 12/08/2019 Overview (03/30/2020): Pathological stage IA ER/OK positive, HER2 negative an Oncotype DX score [...] stage unknown. She received radiation therapy at [facility] with what from her description sounded like [...] (09/16/2018): Added automatically from request for surgery [id number] Dizziness 07/09/2018 H/O sinus bradycardia 04/16/2018 Pleural [...] Primary osteoarthritis of right hip 08/06/2021 09/10/2021 Social History Tobacco Use Types Packs/Day Years [...] on file Legal Sex Female 12:19 AM FRONT DESK REPRESENTATIVE Gender Identity Not on file Sexual Orientation Not on file Occupation Industry Job Start Date Job End Date Retired Not on file Not on file Not on file Last Filed Vital Signs Vital Sign Reading Time Taken Comments Blood Pressure 110/70 03/19/2024 2:23 PM CDT Pulse 78 03/19/2024 2:23 PM CDT Temperature 36.5 C (97.7 F) 08/28/2021 11:00 AM FRONT DESK REPRESENTATIVE Respiratory Rate 16 01/21/2023 10:15 AM CDT Oxygen Saturation 96% 03/19/2024 2:23 PM CDT Inhaled Oxygen Concentration - - Weight 55.9 kg (123 lb 3.2 oz) 03/19/2024 2:23 P M CDT Height 162.6 cm (5' 4 ) 12/29/2023 2:26 PM CDT Body Mass Index 21.15 12/29/2023 2:26 PM CDT Plan of Treatment Not on file Medical Devices Implanted Type Area Oil Agent Device Identifier Shelf Expiration Date Model / Serial / Lot Bard Peripheral Vascular [id number] Ultraclip Bard 17ga 10cm 2 Trigger Permanent Ultrasound - [id number] - [id number] Implanted:Qty: 1 on 10/22/2019 by Anthony Ambrosio MD at [facility] Breast Right: Breast Bard Peripheral Vascular 05/03/2022 [id number] / [id number] / [employer] 2088tc/52 Tendril Sts 6fr 52cm Is-1 Connector Active Fixation Bipolar Soft - [id number] - [id number] Implanted:Qty: 1 on 10/15/2018 by Jeffrey Stafford MD at [facility] Lead [employer] [id number] 09/03/2021 2088TC/52 / [id number] / [employer] 2088tc/46 Tendril Sts 6fr 46cm Is-1 Connector Bipolar Active Fixation - [id number] - [id number] Implanted:Qty: 1 on 10/15/2018 by Jeffrey Stafford MD at [facility] Lead [employer] [id number] 05/06/2021 2088TC/46 / [id number] / [employer] 1458q/86 Quartet 5fr 46azj28gv 4 Electrode Is-4 Connector Steerable Tip - [id number] - [id number] Implanted:Qty: 1 on 10/15/2018 by Jeffrey Stafford MD at [facility] Lead [employer] [id number] 09/03/2021 1458Q/86 / [id number] / [employer] [id number] Quadra Allure Mp Rf 86q19vm Is4-Llll Is-1 Connector Thk6mm - [id number] - [id number] Implanted:Qty: 1 on 10/15/2018 by Jeffrey Stafford MD at [facility] Pacemaker [employer] [id number] 03/06/2020 [id number] / [id number] / Daig Yue/[employer] [id number] Angio-Seal Vip Bondek-Plus 6fr .035in 70cm Hemostatic Latex Free - [id number] Implanted:Qty: 1 on 09/23/2018 by Vivek Ruiz MD at [facility] [employer] 06/05/2019 [id number] / / [id number] [employer] [id number] Gray 52mm Sector Hip Shell Acetabular Gription Sterile Latex Free - [id number] Implanted:Qty: 1 on 08/27/2021 by Saul Marquez MD at [facility] Right: Hip [employer] 03/06/2031 [id number] / / [id number] [employer] [id number] Gray 52mm 36mm Hip 10d +4mm Liner Acetabular Altrx Sterile Latex Free - [id number] Implanted:Qty: 1 on 08/27/2021 by Saul Marquez MD at [facility] Right: Hip [employer] 07/06/2026 [id number] / / [id number] [employer] 1217-35-500 Gray 6.5mm 35mm Acetabular Cancellous Screw Bone Sterile - [id number] Implanted:Qty: 1 on 08/27/2021 by Saul Marquez MD at [facility] Right: Hip [employer] 06/05/2031 0 / / [id number] [employer] [id number] Actis 99mm Collar Hip 2 Standard Offset Stem Femoral - [id number] Implanted:Qty: 1 on 08/27/2021 by Saul Marquez MD at [facility] Right: Hip [employer] 05/06/2028 [id number] / / [id number] [employer] [id number] Articul/Juma 36mm Cementless M Specification No Skirt [place] Neck Latex Free - [id number] Implanted:Qty: 1 on 08/27/2021 by Saul Marquez MD at [facility] Right: Hip [employer] 08/06/2025 [id number] / / [id number] Procedures Procedure Name Priority Date/Time Associated Diagnosis Comments DEVICE CHECK - REMOTE Routine 06/18/2024 8:27 AM FRONT DESK REPRESENTATIVE CHB (complete heart block) (CMS/HCC) (HCC) Cardiac resynchronization therapy pacemaker (POSTBED STITCHER-P) in place Nonischemic cardiomyopathy (CMS/HCC) (HCC) SCREENING MAMMOGRAM BILATERAL W LAWSON Schedule Routine, Read Routine (OP Routine) 06/13/2022 9:56 AM FRONT DESK REPRESENTATIVE Encounter for screening mammogram for malignant neoplasm of breast HEPATITIS C RNA, QUANTITATIVE, PCR Routine 06/02/2019 11:44 AM FRONT DESK REPRESENTATIVE from Last 3 Months or Most Recently Relevant to Health Maintenance Results * DEVICE CHECK - REMOTE (06/18/2024 8:27 AM FRONT DESK REPRESENTATIVE) Anatomical Region Laterality Modality Other Narrative 06/21/2024 4:52 PM FRONT DESK REPRESENTATIVE Table formatting from the original result was [...] 1.5 ms Pacing % <1% 2.6% >99% POSTBED STITCHER >99% POSTBED STITCHER Battery Status: 3.7 months to CARLOS. Episodes last 90 days: None Comments: Programming appropriate for device measurements. Measured data stable. Nearing CARLOS. See attached report. Medications: Anticoagulant(s): n/a Antiarrhythmic(s): metoprolol tartrate Plan: Refer to EP prior to generator change. Kayy Carbone RN Anthony Hinds MD [facility] PROCE TAVO Final Result * Screening Mammogram Bilateral W Lawson (06/13/2022 9:56 AM FRONT DESK REPRESENTATIVE) Anatomical Region Laterality Modality Breast Bilateral Mammography 06/13/2022 12:5 9 PM FRONT DESK REPRESENTATIVE Impressions 06/13/2022 12:59 PM FRONT DESK REPRESENTATIVE There is no mammographic evidence of malignancy. A 1 year screening mammogram is recommended. BI-RADS: 2 - Benign. The patient has been or will be contacted. The patient will be entered into a reminder system with a target due date of 1 year for her next mammogram. Electronically signed by: Prakash Rendon M.D. Narrative 06/13/2022 12:59 PM FRONT DESK REPRESENTATIVE EXAMINATION: SCREENING MAMMOGRAM BILATERAL W LAWSON ORDERING [...] (HCV) RNA PCR, quantitative (06/02/2019 11:44 AM FRONT DESK REPRESENTATIVE) HCV RNA qn Undetected Undetected IUnits/mL LORY SAPP (VOLODYMYR) Comment: Result in log IU/mL is Undetected. ADDITIONAL INFORMATION The quantification range of this assay is 15 to 100,000,000 IU/mL (1.18 log to 8.00 log IU/mL). Testing was performed using the lester HCV test ([employer] with the lester LayerGloss0 System. Test Performed by: [facility] [address] [place] [address] Surface Plate Finisher: Raheem Cornejo M.D. Ph.D.; CLIA# [id number] Blood specimen (specimen) 06/02/2019 11:44 AM FRONT DESK REPRESENTATIVE 06/02/2019 12:08 PM FRONT DESK REPRESENTATIVE Mer Szymanski MD LAB MICROBIOLOGY - [facility] ORDERABLES Final Result LORY SAPP (VOLODYMYR) [address] [facility] Department [place] [address] from Last 3 Months or Most Recently Relevant to Health Maintenance Insurance * Guarantor: Yusuf Parish Account Type Relation to Patient Date of Phone Billing Address Personal/Family Self [address] [place] [address] MEDICARE IDPA MEDICARE IDPA MEDICARE IDPA Advance Directives For more information, please contact: [phone] Documents on File Type Date Recorded Patient Heel Seam Rubber Expl anation ADVANCE DIRECTIVE 08/27/2021 9:10 AM Power of Mineralogy Professor-Medical Power of Mineralogy Professor 05/22/2021 2:02 PM ADVANCE DIRECTIVE 10/21/2018 3:46 [...] 9:41 AM 12/23/2017 2:52 AM Care Teams Party Plan Sales Unit Sales Leader Relationship Specialty Start Date End Date Silvano Byrne MD [address] [place] [address] [address] PCP - General Family Medicine 03/30/20 Sung Do MD Consulting Physician Cardiology 10/16/18 Saul Marquez MD [address] [place] [address] [address] Surgeon Orthopedic Surgery 08/28/21
--- OUTSIDE RECORDS SUMMARY | 2024-08-26 16:18 | XMS_ITS | Clinical Summary ---
Author Organization [facility] Address [address] [place] [address] Care Team Providers Care Lcpc Name Role Phone Priya Gallego MD Primary Care Provider + Source Comments [facility],non-owned Affiliates and Associated Physician Practices is amultiple site organization consisting of ambulatory clinics and hospital sitesin [place], [place], [place] and [place]. This disclosure is being madepursuant to the Care Everywhere program and may not contain all information available regarding this patient. Last updated 18.[facility] [employer] Social History Tobacco Use Types Packs/Day Years Used Date Smoking Tobacco: Never Assessed Sex and Gender Information Value Date Recorded Sex Assigned at Not on file Gender Identity Not on file Sexual Orientation Not on file Plan of Treatment Health Maintenance Due Date Last Done Comments COLOGUARD (AGES 45-75) - COL ON CA SCREENING 1961 COLON MONITORING 1961 COLONOSCOPY - COLON CA SCREENING 1961 CT COLONOGRAPHY - COLON CA SCREENING 1961 Colorectal Cancer Screening 1961 FIT - COLON CA SCREENING 1961 FLEX SIG - COLON CA SCREENING 1961 LIPID TESTING 1961 MAMMOGRAM 1961 MEDICARE AWV 12 MONTHS 1961 PAP SMEAR 1961 HIV SCREENING 1976 HEPATITIS C SCREENING 06/29/1979 DTAP/TDAP/TD VACCINES (1 - Tdap) 1980 PNEUMOCOCCAL VACCINE 50+ (1 of 1 - PCV) 2011 ZOSTER VACCINE (1 of 2) 2011 COVID-19 VACCINE (1 - 2023-2 5 season) 2024 INFLUENZA VACCINE (#1) 2024 DEPRESSION SCREENING 07/07/2024 Respiratory Syncytial Virus (RSV) Vaccine Pt: or over 60 yrs (1 - 1-dose 75+ series) 2036 HEPATITIS B VACCINE Aged Out No longe r eligible based on patient's age to complete this topic HIB VACCINE Aged Out No longer eligi ble based on patient's age to complete this topic HPV VACCINE Aged Out No longer eligi ble based on patient's age to complete this topic MENINGOCOCCAL (Group B) VACCINE Aged Out No longer eligible based on patient's age to complete this topic MENINGOCOCCAL VACCINE Aged Out No kvng tirso eligible based on patient's age to complete this topic PNEUMOCOCCAL VACCINE Aged Out No long er eligible based on patient's age to complete this topic Care Teams Lcpc Relationship Specialty Start Date End Date Priya Gallego MD [address] [place] [address] PCP - General 12/05/17
--- OUTSIDE RECORDS SUMMARY | 2024-08-26 16:18 | XMS_ITS | Encounter Summary ---
Author Organization [facility] Address [address] [place] [address] Phone Care Team Providers Care Cured Meats Supervisor Name Role Phone Mer Szymanski MD Primary Care Provider [phone]- [phone] Juan David Ashby MD Unavailable [phone] Hector Rendon MD Unavailable [phone] Rohit Cardoso MD Unavailable [phone] Sung Do MD Unavailable [phone] Lily Guerrero MD Primary Care Provider Silvano Byrne MD Primary Care Provider [phone] Shawn Alves MD Unavailable Nati Garcia PAC Primary Care Pro vider Encounter Details Date Type Department Care Team (Late st Contact Info) Description 11/01/2019 Lab Requisition [facility] [address] [place] [address] Shamika Sparks MD Social History Tobacco Use Types Packs/Day Years Used Date Smoking Tobacco: Never Assessed Comments No Sex and Gender Information Value Date Recorded Sex Assigned at Not on file Legal Sex Female 8:56 PM CDT Gender Identity Not on file Sexual Orientation Not on file COVID-19 Exposure Response Date Recorded In the last month, have you been in contact with someone who was confirmed or suspected to have Coronavirus / COVID-19? No / Unsure 11/01/2019 9:52 AM CDT documented as of this encounter Plan of Treatment Upcoming Encounters Date Type Department Care Team (Late st Contact Info) Description 09/14/2024 1:00 PM CDT Lab [facility] [address] [place] [address] Discharge Disposition: Discharged to home or Selfcare 09/21/2024 11:30 AM CDT Office Visit [facility] [address] [place] [address] Leighann Crow, DYE CAN OPERATOR, ROLLING CHAIR PUSHER [address] [place] [address] Discharge Disposition: Discharged to home or Selfcare 09/27/2024 11:30 AM CDT Office Visit [facility] - Internal Medicine - [place] [address] [place] [address] Nati Garcia, [facility] [address] [place] [address] documented as of this encounter Procedures Procedure Name Priority Date/Time Associated Diagnosis Comments PATHOLOGY SURGICAL Routine 10/22/2019 12 :00 PM CDT documented in this encounter Results * PATHOLOGY SURGICAL (10/22/2019 12:00 PM CDT) Case Report Surgical Pathology Report Case: [id number] Authorizing Provider: Shamika Sparks, Collected: 10/22/2019 12:00 PM Ordering Location: [facility] Received: 11/01/2019 11:15 AM [facility] Pathologist: Shamika Sparks MD Specimen: BREAST, 7 slides received for consult 11/02/2019 1:20 PM CDT [facility] Final Diagnosis Breast, right, mass, needle biopsy ([id number], 10/22/19): - Invasive carcinoma with micropapillary features, 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 - ER positive (90%), PgR positive (100%), Ki-67 low (less than 10%), see Comment. 11/02/2019 1:20 PM CDT [facility] Comment Per report, Her-2/ne u results are pending fluorescence in-situ hybridization (FISH) testing at the originating institution. 11/02/2019 1:20 PM CDT [facility] Gross Description Received from [facility] ([place], [place]) are 2 H&E slides, 5 immunostained slides and controls, and a surgical pathology report, all of which are labeled with the patient's name, Mariam Parish. The slides will be returned to the originating institution along with a copy of the consultation report. 11/02/2019 1:20 PM CDT [facility] Microscopic Description Sections show cores of breast parenchyma involved by a predominantly micropapillary proliferation of atypical epithelioid cells in a fibrotic stroma, the largest contiguous focus of which measures 4 mm on the slide. The proliferation is characterized by infrequent tubule formation (score 3), intermediate nuclear atypia (score 2), and low mitotic activity (score 1), for an overall histologic grade of 2. 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 Immunohistochemical staining for SMM and p63 highlight a preserved myoepithelial layer surrounding the in-situ component. By immunohistochemical staining, the invasive component displays 90% strong (3+) positivity for ER, 100% strong (3+) positivity for PgR, and a proliferation index of less than 10% by Ki-67. SES/dv 11/02/2019 1:20 PM CDT [facility] Specimen of unknown material (specimen) BREAST STRUCTURE / Unknown 10/22/2019 12:00 PM CDT 11/01/2019 11:15 AM CDT Shamika Sparks MD PATHOLOGY/CYTOLOGY OR DERABLES Final Result [facility] [address] [place] [address] documented in this encounter Visit Diagnoses Not on filedocumented in this encounter Additional Health Concerns Infection Onset Date Last Indicated Resolved Time COVID - 19 11/11/2019 11/12/2019 11/15/2019 11:2 1 AM CDT documented as of this encounter Care Teams Cured Meats Supervisor Relationship Specialty Start Date End Date [place] [address] PCP - General Family Medicine 11/01/19 01/23/20 Lily Guerrero MD [address] [facility] [address] [place] [address] PCP - General Family Medicine 01/24/20 02/24/20 Silvano Byrne MD [address] [facility] [address] [place] [address] PCP - General Family Medicine 02/25/20 03/23/24 Nati Garcia, [facility] [address] [place] [address] PCP - General Physician Agriculture Mechanic 03/24/24 [place] [address] Consulting Physician General Surgery 12/27/19 Hector Rendon MD [address] [place] [address] Consulting Physician Medical Oncology 12/27/19 Rohit Cardoso MD [address] [place] [address] Consulting Physician Radiation Oncology 12/27/19 Sung Do MD [address] [address] Consulting Physician Cardiovascular Disease - Cardiology 12/28/19 Shawn Alves MD [address] [address] Consulting Physician Colon and Rectal Surgery 05/10/22 documented as of this encounter
--- OUTSIDE RECORDS SUMMARY | 2024-08-26 16:18 | XMS_ITS | Encounter Summary ---
Author Organization [facility] Address [address] [place] [address] Phone Care Team Providers Care Cnc Technician Name Role Phone Mer Szymanski MD Primary Care Provider [phone] Juan David Ashby MD Unavailable Hector Rendon MD Unavailable [phone] Rohit Cardoso MD Unavailable [phone] Sung oD MD Unavailable [phone] Lily Guerrero MD Primary Care Provider Silvano Byrne MD Primary Care Provider [phone] Shawn Alves MD Unavailable Nati Garcia [facility] Primary Care Pro vider Encounter Details Date Type Department Care Team (Late st Contact Info) Description [facility]/12[facility] [address] [place] [address] Violet Mcclellan Social History Tobacco Use Types Packs/Day Years [...] 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 Date 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 Not on file No [...] Info) Description 09/14/2024 1:00 PM CDT [facility] [address] [place] [address] Discharge Disposition: Discharged to home or Selfcare 09/21/2024 11:30 AM CDT [facility] [address] [place] [address] Leighann Crow, CUSTOMER SUCCESS ASSOCIATE, BOTTLE HOUSE PUMPER [address] [place] [address] Discharge Disposition: Discharged to home or Selfcare 09/27/2024 11:30 AM CDT [facility] - [place] [address] [place] [address] Nati Garcia PAC [address] [place] [address] documented as of this encounter Visit Diagnoses Not on filedocumented in this encounter Care Teams Cnc Technician Relationship Specialty Start Date End Date Mer Szymanski MD [address] [place] [address] PCP - General Family Medicine 11/01/19 01/23/20 Lily Guerrero MD [address] [place] [address] PCP - General Family Medicine 01/24/20 02/24/20 Silvano Byrne MD [address] [place] [address] PCP - General Family Medicine 02/25/20 03/23/24 Nati Garcia [facility] [address] [place] [address] PCP - General Physician Apple Packing Header 03/24/24 [place] [address] Consulting Physician General Surgery 12/27/19 Hector Rendon MD [address] [place] [address] Consulting Physician Medical Oncology 12/27/19 Rohit Cardoso MD [address] [place] [address] Consulting Physician Radiation Oncology 12/27/19 Sung Do MD [address] [place] [address] Consulting Physician Cardiovascular Disease - Cardiology 12/28/19 Shawn Alves MD [id number] [address] Consulting Physician Colon and Rectal Surgery 05/10/22 documented as of this encounter
--- OUTSIDE RECORDS SUMMARY | 2024-08-26 16:18 | XMS_ITS | Encounter Summary ---
Author Organization [facility] Address [address] [place] [address] Care Team Providers Care Research Editor Name Role Phone Jeremy Stinson MD Primary Care Provider [phone]- [phone] Sung Do MD Unavailable [phone] Mer Szymanski MD Primary Care Provider Sung Do MD Primary Care Provider + Silvano Byrne MD Primary Care Provider [phone] Saul Marquez MD Unavailable [phone] Encounter Details Date Type Department Care Team (Late st Contact Info) Description 09/14/2018 Telephone [facility] [address] [place] [address] [place] [address] [facility] [address] [place] [address] Social History Tobacco Use Types Packs/Day Years Used Date Smoking Tobacco: Never Smokeless Tobacco: Never Alcohol Use Standard Drinks/Week Comments No 0 (1 standard drink = 0.6 oz pur e alcohol) Comments No Sex and Gender Information Value Date Recorded Sex Assigned at Not on file Legal Sex Female 12:19 AM SALESPERSON WIGS Gender Identity Not on file Sexual Orientation Not on file documented as of this encounter Plan of Treatment Not on file documented as of this encounter Visit Diagnoses Not on filedocumented in this encounter Care Teams Research Editor Relationship Specialty Start Date End Date Jeremy Stinson MD [address] [place] [address] PCP - General 11/06/16 04/29/19 Mer Szymanski MD [address] [place] [address] PCP - General Family Medicine 04/30/19 03/28/20 Sung Do MD [address] [place] [address] PCP - General Cardiology 03/29/20 03/29/20 Silvano Byrne MD [address] [place] [address] [address] [address] PCP - General Family Medicine 03/30/20 Sung Do MD [address] [place] [address] Consulting Physician Cardiology 10/16/18 Saul Marquez MD [address] [place] [address] [address] Surgeon Orthopedic Surgery 08/28/21 documented as of this encounter
--- OUTSIDE RECORDS SUMMARY | 2024-08-26 16:18 | XMS_ITS | Encounter Summary ---
Author Organization [facility] Address [address] [facility] [place] [address] Phone Care Team Providers Care Parish Visitor Name Role Phone Juan David Ashby MD Unavailable Hector Rendon MD Unavailable [phone] Rohit Cardoso MD Unavailable Sung Do MD Unavailable Silvano Byrne MD Primary Care Provider [phone] Shawn Alves MD Unavailable Nati Garcia [facility] Primary Care Pro vider Reason for Visit * Reason Comments Medication Refill Encounter Details Date Type Department Care Team (Late st Contact Info) Description [facility] [address] [place] [address] Hector Rendon MD [address] [place] [address] Medication Refill Social History Tobacco [...] Start Date 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 Oncology Services [address] [place] [address] Discharge Disposition: Discharged to home or Selfcare 09/21/2024 11:30 AM CDT [facility] [address] [place] [address] Leighann Crow, PATENTED HOGSHEAD ASSEMBLER, WAD BLANKING PRESS ADJUSTER [address] [place] [address] Discharge Disposition: Discharged to home or Selfcare 09/27/2024 11:30 AM CDT Office Visit [facility] - Internal Medicine [place] [address] [place] [address] Nati Garcia, [facility] [address] [place] [address] documented as of this encounter Goals Goal Patient Goal Type Associated Problems Recent Progress Patient-Stated? Author Healthy Lifestyle Healthy Lifestyle Carolyn Olivo, RN Note: Pace/increase activity documented as of this encounter Visit Diagnoses Not on filedocumented in this encounter Additional Health Concerns Assessment Noted Time PHQ-9 Depression Total Score: 0 04/06/20 21 10:00 AM CDT documented as of this encounter Care Teams Parish Visitor Relationship Specialty Start Date End Date Silvano Byrne MD [address] [place], [place] [address] PCP - General Family Medicine 02/25/20 03/23/24 Nati Garcia, [facility] [address] [place] [address] PCP - General Physician Credit Risk Manager 03/24/24 Juan David Ashby MD Consulting Physician General Surgery 12/27/19 Hector Rendon MD [address] [place] [address] Consulting Physician Medical Oncology 12/27/19 Rohit Cardoso MD [address] [place] [address] Consulting Physician Radiation Oncology 12/27/19 Sung Do MD [address] [place] [address] Consulting Physician Cardiovascular Disease - Cardiology 12/28/19 Shawn Alves MD [address] [address] Consulting Physician Colon and Rectal Surgery 05/10/22 documented as of this encounter
--- OUTSIDE RECORDS SUMMARY | 2024-08-26 16:18 | XMS_ITS | Referral Summary ---
Author Organization [facility] Address [address] [place] [address] Care Team Providers Care Psychological Assistant Name Role Phone Priya Gallego MD Primary Care Provider + Source Comments [facility],non-owned Affiliates and Associated Physician Practices is amultiple site organization consisting of ambulatory clinics and hospital sitesin [place], [place], [place] and [place]. This disclosure is being madepursuant to the Care Everywhere program and may not contain all information available regarding this patient. Last updated 18.[facility] Social History Tobacco Use Types Packs/Day Years Used Date Smoking Tobacco: Never Assessed Sex and Gender Information Value Date Recorded Sex Assigned at Not on file Gender Identity Not on file Sexual Orientation Not on file Plan of Treatment Not on file Care Teams Psychological Assistant Relationship Specialty Start Date End Date Priya Gallego MD [address] [place] [address] (work) PCP - General 12/05/17
--- OUTSIDE RECORDS SUMMARY | 2024-08-26 16:18 | XMS_ITS | Data Portability ---
Author Organization [facility], Main Office Address [address] [place] [id number] Care Team Providers Care Relish Blender Name Role Phone [facility]ER JES [place] Primary Care Provider MATTHEW MURO Referring Provider [phone] TYSON FERRARA Referring Provider Assessment Encounter Date Assessment Date Assessment LastModified by Organization Details LastModified Time 09/11/2021 09/11/2021 labs 09/12 ultrasound results reviewed Reviewed case with nursing and therapy Not available 09/18/2021 16:57:10 09/13/2021 09/13/2021 labs reviewed Urged patient to wear compression hose as she is not wearing them today Reviewed case with nursing and therapy [email or web address] Not available 09/18/2021 17:01:56 09/18/2021 09/18/2021 labs reviewed edema improving Reviewed case with nursing and therapy [email or web address] Not available 09/18/2021 17:06:15 09/21/2021 09/21/2021 D/C 2 tab option for PRN [place] so pt does not exceed APAP limit. Labs (CBC, CMP) on 09/24. Discharge tentative for 09/26. Not available 09/22/2021 13:11:16 09/25/2021 09/25/2021 The patient will be discharged home with home health orders of home health RN / PT / OT to evaluate and treat. The patient is homebound because of fall risk and is unable to leave home safely because requires use of an assistive device and assistance of another person to leave home. The patient requires home health nursing for instruction, observation and assessment; PT for training to restore safe independent functional ambulation in community; and OT for training to improve ability to fulfill ADLs. Please follow-up with your primary care provider within 1 week. Call your primary care provider for instructions or go to the emergency room for new or worsening symptoms. The patient improved with therapy, nursing, and medical care at our post-acute facility and is being discharged home tomorrow with home health services. labs reviewed medications reviewed - pt. will go home with medications from facility which she has enought per nursing for up to 7 days after discharge. Not available 10/06/2021 08:24:31 Plan of Treatment Reminders Order Date Submit Date Provider Last Modified By Organization Details Last Modified Time Details Appointments None record ed. Lab None record ed. Referral None record ed. Procedures None record ed. Surgeries None record ed. Imaging None record ed. Medication Orders None record ed. Patient TargetsNo targets recorded. Patient Instructions Encounter Date Encounter Id Patient Instructions Last Modified By Organization Details Last Modified Time 09/11/2021 [id number] I spent {{10 15 20 25 30* 35 40 45 50 60 > 75}} minutes providing care to the patient today. More than 50% of that time was spent in discussing the expected course of the disease, discussing prognosis, coordinating care and counseling of the patient/family. [email or web address] Not available 09/18/2021 16:57:07 09/13/2021 [id number] I spent {{10 15 20 25 30* 35 40 45 50 60 > 75}} minutes providing care to the patient today. More than 50% of that time was spent in discussing the expected course of the disease, discussing prognosis, coordinating care and counseling of the patient/family. Not available 09/18/2021 17:02:37 09/18/2021 [id number] I spent {{10 15 20 25* 30 35 40 45 50 60 > 75}} minutes providing care to the patient today. More than 50% of that time was spent in discussing the expected course of the disease, discussing prognosis, coordinating care and counseling of the patient/family. [email or web address] Not available 09/18/2021 17:07:00 09/21/2021 [id number] I spent {{10 15 20 25 30 35 40 45 50 60 >7 5 26#}} minutes providing care to the patient today. More than 50% of that time was spent in discussing the expected course of the disease, discussing prognosis, coordinating care and counseling of the patient/family. Not available 09/22/2021 13:12:51 09/25/2021 [id number] I spent {{10 15 20 25 30 35* 40 45 50 60 >75}} minutes providing care to the patient today. More than 50% of that time was spent in discussing the expected course of the disease, discussing prognosis, coordinating care and counseling of the patient/family. [email or web address] Not available 10/06/2021 08:24:37 Reason for Referral None Reported. Results Created Date Observation Date Name Description Value Unit Range Abnormal Flag Note LastModifiedBy Organization Detail LastModifiedTime 09/19/19 22 US, adrian x, tristan s, ranjana [place] terleonard No observ ation record ed. [email or web address] Not Available 2021 16:54:31 Result Notes None recorded. Problems Name Problem SNOMED Code Status Onset Date Resolution Date Notes Provider Name and Address Organization Details Recorded Time Constipatio n 12791577 Active 2021 Shamika [place]iano, [place] - [facility] 2 09:57:59 Postoperati ve pain 938403595 Active 2021 Shamika Pineda [place] - [facility] 2 00:04:47 Osteoarthri tis of right hip joint 0332545997958 07 Active 2021 Shamika [place] - [facility] 2 00:04:51 Essential hypertensio n 32603808 Active 2021 Shamika Pined[place] - [facility] 2 00:05:00 Asthma 528091633 Active 2021 Shamika Pined[place] - [facility] 2 00:05:02 Anemia 440170529 Active 2021 Shamika Pined[place] - [facility] 2 00:05:06 Hypothyroid ism 55521166 Active 2021 Shamika Pined[place] - [facility] 2 00:05:14 History of malignant neoplasm of breast 227161680 Active 2021 Shamika Pineda [place] - [facility] 2 00:05:15 Swelling of lower leg 404837341 Active 2021 Shamika casiano, THONY - [facility] 2 08:23:32 Problem Notes None recorded. Procedures Surgical History Date Name Laterality Status Provider Name and Address Organization Details Recorded Time repair of hip completed Aracely Randi BHANDARI - [facility] 08/28/2021 17:08:23 Imaging Results Imaging Date Name Status LastModified by Organiz ation Details LastModified Time 09/18/2021 US, duplex, venous, extremity, unilateral completed Information not available 09/18/2021 16:54:31 Procedure Notes None recorded. Medical Equipment None Reported. Allergies Allergen ID Allergen Name Allergen Category Reaction Reaction Severity Criticality Documentation Date Start Date Code Code System Note Provider Name and Address Organization Details Recorded Time 86715 amitripty line medicatio n Not available Not available Not available 08/28/2021 704 RxNorm Not Available Not Available Not Available 01248 cyclobenz aprine medicatio n Not available Not available Not available 08/28/2021 56514 RxNorm Not Available Not Available Not Available 10246 diclofena c Not available Not available Not available Not available 08/28/2021 3355 RxNorm Not Available Not Available Not Available 58424 levofloxa milena medicatio n Not available Not available Not available 08/28/2021 25517 RxNorm Not Available Not Available Not Available 34866 metaxalon e medicatio n Not available Not available Not available 08/28/2021 94046 RxNorm Not Available Not Available Not Available 04429 misoprost ol medicatio n Not available Not available Not available 08/28/2021 78451 RxNorm Not Available Not Available Not Available 38166 naproxen medicatio n Not available Not available Not available 08/28/2021 7258 RxNorm Not Available Not Available Not Available 87345 orphenadr ine Not available Not available Not available Not available 08/28/2021 7715 RxNorm Not Available Not Available Not Available 20212 rofecoxib medicatio n Not available Not available Not available 08/28/2021 45919 8 RxNorm Not Available Not Available Not Available 94130 tramadol medicatio n Not available Not available Not available 08/28/2021 72320 RxNorm Not Available Not Available Not Available Medications Name Sig Start Date Stop Date Status Note LastModified by Organization Details LastModified Time acetaminoph en 325 mg tablet Take 2 tablets 3 times a day by oral route. active Not Available Not Available No t Available aspirin 325 mg tablet Take 1 tablet every day by oral route. active Not Available Not Available No t Available hydrocodone 5 mg-acetamin ophen 325 mg tablet Take 1 tablet every 4 hours by oral route as needed. active Not Available Not Available No t Available sennosides 8.6 mg-docusate sodium 50 mg tablet Take 2 tablets every day by oral route as needed. 2021 active Not Available Not Available Not Avai lable ascorbic acid (vitamin C) 500 mg tablet Take 1 tablet every day by oral route. active Not Available Not Available No t Available ondansetron [address] 1 tablet every 6 hours by transling ual route as needed. active Not Available Not Available No t Available Multiple Vitamins tablet Take 1 tablet every day by oral route. active Not Available Not Available No t Available ferrous sulfate 325 mg (65 mg iron) tablet Take 1 tablet every day by oral route. active Not Available Not Available No t Available metoprolol tartrate 50 mg tablet Take 1 tablet twice a day by oral route. 09/02 completed Not Available Not Available Not Available furosemide 20 mg tablet Take 1 tablet every day by oral route. active Not Available Not Available No t Available letrozole 2.5 mg tablet Take 1 tablet every day by oral route. active Not Available Not Available No t Available albuterol sulfate HFA 90 mcg/actuati on aerosol inhaler Inhale 2 puffs every 6 hours by inhalatio n route as needed. active Not Available Not Available No t Available metoprolol tartrate 25 mg tablet Take 1 tablet twice a day by oral route. active Not Available Not Available No t Available cholecalcif maisha (vitamin D3) 50 mcg (2,000 unit) tablet Take 1 tablet every day by oral route. active Not Available Not Available No t Available levothyroxi ne 25 mcg capsule Take 1 capsule every day by oral route. active Not Available Not Available No t Available fluticasone furoate 100 mcg-vilante rol 25 mcg/dose inhalation powder Inhale 1 puff every day by inhalatio n route. active Not Available Not Available No t Available sennosides 8.6 mg-docusate sodium 50 mg capsule Take 2 capsules twice a day by oral route. 09/03 completed Not Available Not Available Not Available Vitals Date Recorded Body height Body mass index (BMI) Body weight Heart rate Oxygen saturation Oxygen saturation in Arterial blood by Pulse oximetry Respiratory rate Body temperature Systolic blood pressure Diastolic blood pressure Provider Name and Address Organization Details Last Updated DateTime 2 160.02 cm 23.7 kg/m2 03285.9 4 g 69 /min 98 % 98 % 24 /min 98 [degF] 126 mm[Hg] 63 mm[Hg] Shamika Pineda [facility] [employer] 2 11:32:28 Date Recorded Body height Body mass index (BMI) Body weight Heart rate Oxygen saturation Oxygen saturation in Arterial blood by Pulse oximetry Respiratory rate Body temperature Systolic blood pressure Diastolic blood pressure Provider Name and Address Organization Details Last Updated DateTime 2 160.02 cm 24.1 kg/m2 90929.6 4 g 78 /min 96 % 96 % 20 /min 97.2 [degF] 123 mm[Hg] 63 mm[Hg] Shamika Pineda [facility] [employer] [facility] 2 16:58:35 Date Recorded Body height Heart rate Oxygen saturation Oxygen saturation in Arterial blood by Pulse oximetry Respiratory rate Body temperature Systolic blood pressure Diastolic blood pressure Provider Name and Address Organization Details Last Updated DateTime 2 160.02 cm 93 /min 96 % 96 % 18 /min 97.6 [degF] 118 mm[Hg] 66 mm[Hg] Shamika Pineda [facility] 2 17:03:41 Date Recorded Body height Body mass index (BMI) Body weight Heart rate Oxygen saturation Oxygen saturation in Arterial blood by Pulse oximetry Respiratory rate Body temperature Systolic blood pressure Diastolic blood pressure Provider Name and Address Organization Details Last Updated DateTime 2 160.02 cm 23 kg/m2 87900.0 1 g 86 /min 96 % 96 % 18 /min 97.5 [degF] 123 mm[Hg] 72 mm[Hg] Jaye Ma, [address] [address] [place], [address] , [facility] [employer] [facility] 2 11:02:22 Date Recorded Body height Heart rate Oxygen saturation Oxygen saturation in Arterial blood by Pulse oximetry Respiratory rate Body temperature Systolic blood pressure Diastolic blood pressure Provider Name and Address Organization Details Last Updated DateTime 2 160.02 cm 80 /min 97 % 97 % 18 /min 97.5 [degF] 112 mm[Hg] 82 mm[Hg] Shamika BHANDARI - [facility] 2 08:16:38 Social History Question Answer Notes LastModified by [employer] Details LastModified Time Tobacco Smoking Status Never Smoker Shamika casiano, [place] - [facility] 08/31/2021 12:08:40 Do You Have An Advance Directive? Yes Information not available 08/31/2021 What Is Your Level Of Alcohol Consumption? None [email or web address] Information not available 08/31/2021 Are You Blind Or Do You Have Difficulty Seeing? No [email or web address] Information not available 08/31/2021 What Is Your Code Status? Full Code Information not available 08/31/2021 Are You Deaf Or Do You Have Serious Difficulty Hearing? 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 Yes [email or web address] Information not available 08/31/2021 Live Alone Or With Others? Alone Information not available 08/28/2021 Do You Have A Caregiver? No [email or web address] Information not available 08/31/2021 Do You Have A Medical Power Of Advanced Nursing Professor? Yes Sister ISMAEL Mandujano [email or web address] Information not available 08/31/2021 How Many Children Do You Have? 0 [email or web address] Information not available 08/31/2021 What Is Your Relationship Status? [email or web address] Information not available 08/31/2021 Do You Use Any Illicit Or Recreational Drugs? No [email or web address] Information not available 08/31/2021 Has Tobacco Cessation Counseling Been Provided? No [email or web address] Information not available 08/31/2021 Sex: Unknown Functional Status Question Answer Note LastModified by [employer] Details LastModified Time Do you have difficulty walking or climbing stairs? Yes requires [email or web address] Information not available 08/31/2021 Are you able to walk? YESASSIST Pt requires wheeled walker and min assist Information not available 08/28/2021 Do you have difficulty doing errands alone? Yes currently prior to surgery no [email or web address] Information not available 08/31/2021 Are you able to care for yourself? Yes [email or web address] Information not available 08/31/2021 Do you have difficulty dressing or bathing? Yes Pt requires contact guard assist in grooming and min assist in dressing Information not available 08/28/2021 Mental Status Question Answer Note LastModified by Organization D etails LastModified Time Do you have difficulty concentrating, remembering or making decisions? No [email or web address] Information no t available 08/31/2021 Family History Relationship Description Onset Age of this Age Resolved Age Notes LastModified by Organization Details LastModified Time Paternal Grandmother Primary malignant neoplasm of skin of breast Not available 2021 12:07:31 Father Malignant tumor of kidney [email or web address] Not available 2021 12:07:47 Brother Malignant tumor of colon Not available 2021 12:08:18 Medical History Condition Response Psychiatric -- Anxiety Disorder Y Osteoarthritis / DJD Y Cardiomyopathy Y Congestive Heart Failure (CHF) Y Psychiatric -- Depression Y Hypothyroidism Y Asthma Y Anemia Y Cancer -- Breast Y Arrhythmia Y Headaches Y Gynecological HistoryNo gynecological history recorded. Obstetrics History GPAL:G 0 P 0 0 0 0 Past Encounters Encounter ID Performer Location Encounter Start Date Encounter Closed Date Diagnosis/Indication Diagnosis SNOMED-CT Code Diagnosis ICD10 Code Diagnosis Note [id number] Damaris Amor DO [address] [address] 08/29/2021 02:15:15 09/09/2021 00:44:23 Osteoarthritis of right hip joint 5106216091 37518 M16.11 s/p right hip replacemen t per dr. gurdeep thacker hip precaution s, prn norco for painasa for dvt prophylaxi stherapy, wound caref/u with ortho as scheduled 09/10 Essential hypertension 57937726 I10 blood pressures have been low since admission - will decrease metoprolol to 25 mg bid with hold parameters , continue lasix 20 mg daily and continue to trend Asthma 353786082 J45.90 9 continue breo daily, prn albuterole ncouraged ISwill have respirator y follow Anemia 625122116 D64.9 continue iron replacemen t, trend cbc Hypothyroidism 82301239 E03.9 presumed stable - continue synthroid Constipation 56749003 K5 9.00 continue bid senna s, additional meds available via standing ordres History of malignant neoplasm of breast 290827408 Z85.3 continue femara - outpt f/u with oncology [id number] [facility] ation and Therapy [address] [place] [address] 08/31/2021 07:28:31 09/11/2021 09:18:30 Osteoarthritis of right hip joint 5669229913 48887 M16.11 s/p right hip replacemen t per dr. gurdeep thacker hip precaution s, prn norco for painasa for dvt prophylaxi stherapy, wound caref/u with ortho as scheduled 09/10 Essential hypertension 53415222 I10 blood pressures have been low since admission - will decrease metoprolol to 25 mg bid with hold parameters , continue lasix 20 mg daily and continue to trend Asthma 428065428 J45.90 9 continue breo daily, prn albuterole ncouraged ISRT without concerns Anemia 852910398 D64.9 continue iron replacemen t, trend cbc Hypothyroidism 63054553 E03.9 presumed stable - continue synthroid Constipation 97332331 K5 9.00 continue bid senna s, additional meds available via standing ordres History of malignant neoplasm of breast 665683285 Z85.3 continue femara - outpt f/u with oncology [id number] [facility] ation and Therapy [address] [place] [address] 09/03/2021 09:57:19 09/11/2021 09:19:48 Constipation 81503863 K59.00 Added Senna plus PRN Postoperative pain 45461 9007 G89.18 increased the amount of time between [place]. Pt. v/u and is agreeable with plan Osteoarthr itis of right hip joint 1573559134 19415 M16.11 s/p right hip replacemen t per dr. gurdeep thacker hip precaution s, prn norco for painasa for dvt prophylaxi stherapy, wound caref/u with ortho as scheduled 37 Essential hypertension 65522157 I10 blood pressures have been low since admission - will decrease metoprolol to 25 mg bid with hold parameters , continue lasix 20 mg daily and continue to trendblood pressure reviewed and remain stable Asthma 809972538 J45.90 9 continue breo daily, prn albuterole ncouraged ISRT without concerns Anemia 426243848 D64.9 continue iron replacemen t, trend cbc; SEE PE Hypothyroidism 35417331 E03.9 presumed stable - continue synthroid History of malignant neoplasm of breast 906136959 Z85.3 continue femara - outpt f/u with oncology [facility] risk of polypharmacy 414395571 Z91.89 continue with Vitamin C. Monitor side effects of polypharma cy. Vitamin D deficiency 347 76433 E55.9 continue with cholecalci ferol [id number] Shamika Pineda [facility] [address] [place] [address] 09/05/2021 23:20:25 09/11/2021 09:20:32 Constipation 66252771 K59.00 Continue with PRN senna pluse Postoperative pain 27763 9007 G89.18 increased the amount of time between [place]. Pt. v/u and is agreeable with plan Osteoarthr itis of right hip joint 8601007516 51793 M16.11 s/p right hip replacemen t per dr. gurdeep thacker hip precaution s, prn norco for painasa for dvt prophylaxi stherapy, wound caref/u with ortho as scheduled 37 Essential hypertension 54864960 I10 blood pressures have been low since admission - will decrease metoprolol to 25 mg bid with hold parameters , continue lasix 20 mg daily and continue to trendblood pressure stable Asthma 150750263 J45.90 9 continue breo daily, prn albuterole ncouraged ISRT without concerns Anemia 637961548 D64.9 continue iron replacemen t, trend cbc; SEE PE Hypothyroidism 72531863 E03.9 presumed stable - continue synthroid History of malignant neoplasm of breast 317410240 Z85.3 continue femara - outpt f/u with oncology At increas ed risk of polypharmacy 160478567 Z91.89 continue with Vitamin C. Monitor side effects of polypharma cy. 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 gurdeep tahcker hip precaution s, prn norco for pain - increasing dose to 1-2 tabs every 4 hours prnasa for dvt prophylaxi stherapy, wound caref/u with ortho as scheduled 09/10 Essential hypertension 85745089 I10 decreased metoprolol to 25 mg bid with hold parameters on admission here. continue lasix 20 mg daily (increasin g to 40 mg daily x 3 days) and continue to trend Asthma 251464893 J45.90 9 continue breo daily, prn albuterole ncouraged ISrespirat ory therapy following - respirator y status is stable Anemia 218017541 D64.9 continue iron replacemen t, trend cbc Hypothyroidism 38485127 E03.9 presumed stable - continue synthroid Constipation 80681917 K5 9.00 continue bid senna s, additional meds available via standing orders History of malignant neoplasm of breast 118544590 Z85.3 continue femara - outpt f/u with oncology Postoperative pain 64451 9007 G89.18 [id number] Shamika Pineda [facility] ation and Therapy [address] [place] [address] 09/11/2021 11:31:50 09/19/2021 11:35:49 Swelling of lower leg 467730859 R22.41 3/4 venous ultrasound - negativeel evate the legs, 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 gurdeep thacker hip precaution s, prn norco for pain - increasing dose to 1-2 tabs every 4 hours prnasa for dvt prophylaxi stherapy, wound caref/u with ortho as scheduled 09/10 Essential hypertension 19100283 I10 decreased metoprolol to 25 mg bid with hold parameters on admission here. continue lasix 20 mg daily (increasin g to 40 mg daily x 3 days) and continue to trendblood pressure remained stable Asthma 399819736 J45.90 9 continue breo daily, prn albuterole ncouraged ISrespirat ory therapy following - respirator y status is stable Anemia 090769899 D64.9 continue iron replacemen t, trend cbc Hypothyroidism 65247212 E03.9 presumed stable - continue synthroid Constipation 63442906 K5 9.00 continue bid senna s, additional meds available via standing orders History of malignant neoplasm of breast 642665275 Z85.3 continue femara - outpt f/u with oncology Postoperative pain 59065 9007 G89.18 increased the amount of time between [place].Pt. 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 gurdeep thacker hip precaution s, prn norco for pain - increasing dose to 1-2 tabs every 4 hours prnasa for dvt prophylaxi stherapy, wound caref/u with ortho as scheduled 09/10 per therapy [address] ansfers: SBABed Mobility: min assist for legsGait: walking 125ft SBADevice: FWWStairs: 2 steps. Has 2 steps at homeBalanc e: F+ to FSafety: fair to fair plusOTUB Drsg: supervisio nLB Drsg: min - CGABathing : min/CGAToi leting: CGASafety: fairFeedin g:Ind.Has trouble maintianin g hip precaution s Essential hypertension 62818172 I10 decreased metoprolol to 25 mg bid with hold parameters on admission here. continue lasix 20 mg daily continue to trendblood pressure remained stable Asthma [id number] J45.90 9 continue breo daily, prn albuterole ncouraged ISrespirat ory therapy following - respirator y status is stable Anemia 007455149 D64.9 continue iron replacemen t, trend cbc Hypothyroidism 70333595 E03.9 presumed stable - continue synthroid Constipation 60490254 K5 9.00 continue bid senna s, additional meds available via standing orders History of malignant neoplasm of breast 528957620 Z85.3 continue femara - outpt f/u with oncology Postoperative pain 44751 9007 G89.18 increased the amount of time between [place].Pt. 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 gurdeep thacker hip precaution s, prn norco for pain - increasing dose to 1-2 tabs every 4 hours prnasa for dvt prophylaxi stherapy, wound caref/u with ortho as scheduled Essential hypertension 64111793 I10 decreased metoprolol to 25 mg bid with hold parameters on admission here. continue lasix 20 mg daily continue to trendblood pressure remained stable Asthma 048025334 J45.90 9 continue breo daily, prn albuterole ncouraged ISrespirat ory therapy following - respirator y status is stable Anemia 239862236 D64.9 continue iron replacemen t, trend cbc Hypothyroidism 11808603 E03.9 presumed stable - continue synthroid Constipation 55756196 K5 9.00 continue bid senna s, additional meds available via standing orders- patient did report mild constipati on today but she deferred any daily stool softeners at this time. History of malignant neoplasm of breast 375584522 Z85.3 continue femara - outpt f/u with oncology Postoperative pain 68955 9007 G89.18 increased the amount of time between [place].Pt. v/u and is agreeable with plan [id number] Jaye Ma NP [facility] ation and Therapy [address] [place] [address] 09/21/2021 10:46:05 09/24/2021 10:33:40 Swelling of lower leg 954055697 R22.41 3/4 venous ultrasound - negative.I mproved. Continue compressio n and elevate legs at rest. Osteoarthr itis of right hip joint [id number] 30078 M16.11 s/p right hip replacemen t per dr. gurdeep thacker hip precaution s.Schedule d APAP for pain. Decrease PRN [place] to 1 tab PRN so as not to exceed daily APAP limit. Pt has never requested 2 tabs anyway.Con tinue asa for dvt prophylaxi sContinue therapy, wound caref/u with ortho as scheduled Essential hypertension 67245531 I10 Decreased metoprolol to 25 mg bid with hold parameters on admission here.Stabl e. Continue Lasix & Metoprolol .Continue to trend blood pressures, monitor lytes and renal function, and adjust meds as clinically indicated. Asthma 398544178 J45.90 9 Stable. Continue breo daily, prn albuterole ncouraged ISrespirat ory therapy following - respirator y status is stable Anemia 246937523 D64.9 Stable. Continue iron replacemen t, trend cbc Hypothyroidism 68690835 E03.9 presumed stable - continue synthroid Constipation 60639786 K5 9.00 Stable. Continue PRN senna s. History of malignant neoplasm of breast 123565647 Z85.3 Stable. Continue Femara - outpt f/u with oncology [id number] [facility] [address] [place] [address] 09/25/2021 16:44:38 10/14/2021 07:44:32 Osteoarthritis of right hip joint [id number] 50776 M16.11 s/p right hip replacemen t per dr. gurdeep thacker hip precaution s.Schedule d APAP for pain. continue with PRN [place] (pt. will go home with her supply here)Matti nue asa for dvt prophylaxi sContinue therapy, wound care at home with home healthf/u with ortho as scheduled Essential hypertension 64794159 I10 Stable with decrease in metoprolol . Continue Lasix & Metoprolol . Continue to trend blood pressures, monitor lytes and renal function, and adjust meds as clinically indicated. Swelling of lower leg 44 1934387 R22.41 3/4 venous ultrasound - negative.I mproved. Continue compressio n and elevate legs at rest. - pt. has been doing a good job at this Asthma 452918281 J45.90 9 Stable. Continue breo daily, prn albuterole ncouraged ISrespirat ory therapy following - respirator y status is stable Anemia 016642703 D64.9 Stable. Continue iron replacemen t, trend cbc Hypothyroidism 63801354 E03.9 presumed stable - continue synthroid Constipation 00848189 K5 9.00 Stable. Continue PRN senna s. History of malignant neoplasm of breast 928196104 Z85.3 Stable. Continue Femara - outpt f/u with oncology Health Concerns Section Related Observation LastModified by Organization Detai ls LastModified Time None Recorded Concern Status LastModified by Organization Details LastModified Time None Recorded Advance Directives Directive Y: Payers Encounter Date Sequence Insurance Name Policy Number Policy Benjamin Covered Member ID Benjamin Member ID Guarantor Name 09/11/2021 2 [place] [employer] [place] [employer] Mariam A Jem [id number] Mariam A Jem 09/11/2021 1 [place] A Jem [id number] Mariam A Jem 09/13/2021 2 [place] Mariam A Jem [id number] Mariam A Jem 09/13/2021 1 [place] A Jem [id number] Mariam A Jem 09/18/2021 2 [place] Mariam A Jem [id number] Mariam A Jem 09/18/2021 1 [place] A Jem [id number] Mariam A Jem 09/21/2021 2 [place] Mariam A Jem [id number] Mariam A Jem 09/21/2021 1 [place] Mariam Rupal Jem [id number] Mariam A Jem 09/25/2021 2 [place] [facility] PUBLIC AID Mariam Rupal Jem [id number] Mariam Rupal Jem 09/25/2021 1 [place] Mariam A Jem [id number] Mariam A Jem Notes Date Note Type Note Provider Name and Address Organization Details Recorded Time 09/11/2021 text/html 61 y/o pleasant white female admitted to [facility] for post acute rehab subsequent to an inpatient stay at [facility] 08/27-08/28/21 for an elective right hip replacement related to advanced oa that failed conservative interventions per dr. ferrara. She had no postoperative complications. She lives alone which is why she presents for skilled rehab. She will have some assistance from friends/family when she returns home. patient seen today while sitting up in wheelchair in her room. Patient states that she has been doing well. ultrasound of the right leg was negative for blood clots. Patient denies any fevers chills fatigue cough wheezing difficulty breathing chest pain palpitations abdominal pain nausea vomiting diarrhea constipation. States that therapy has been going well and she is progressing. Nursing and therapy deny any other concerns this time Shamika casiano, [facility] 09/18/2021 16:57:25 09/13/2021 text/html 61 y/o pleasant white female admitted to [facility] for post acute rehab subsequent to an inpatient stay at [facility] 08/27-08/28/21 for an elective right hip replacement related to advanced oa that failed conservative interventions per dr. ferrara. She had no postoperative complications. She lives alone which is why she presents for skilled rehab. She will have some assistance from friends/family when she returns home. patient seen while up in wheelchair for exam today. Patient states that she has been doing well in therapy. Patient denies any fevers chills fatigue cough wheezing difficulty breathing chest pain palpitations abdominal pain nausea vomiting diarrhea constipation patient complaining of edema to the bilateral lower extremities. Patient recently had an increased Lasix dose 3 days which had some improvement in her edema. Blood pressures were notably a little softer during that time. nursing and therapy deny any other concerns or complaints at this time. Shamika Pineda stephenie, [facility] 09/18/2021 17:02:50 09/18/2021 text/html 61 y/o pleasant white female admitted to [facility] for post acute rehab subsequent to an inpatient stay at [facility] 08/27-08/28/21 for an elective right hip replacement related to advanced oa that failed conservative interventions per dr. ferrara. She had no postoperative complications. She lives alone which is why she presents for skilled rehab. She will have some assistance from friends/family when she returns home. patient seen while up in wheelchair for exam today. Patient states that she has been doing well. States that her legs have gotten much better as far as the edema goes and she is wearing her compression hose today. Patient denies any fevers chills fatigue cough wheezing difficulty breathing chest pain palpitations abdominal pain nausea vomiting diarrhea constipation. Nursing and therapy deny any concerns or complaints at this time. Shamika Pineda stephenie, [facility] 09/18/2021 17:07:12 09/21/2021 text/html F/U advanced OA s/p elective right hip replacement and chronic medical conditions. The pt is seated in her wheelchair. Made multiple attempts to see her but she was arguing over her bill with her internet service. Ultimately am able to see her, she denies any outright concerns and states her pain is well-controlled overall but she does not feel she is strong enough to yet discharge home as insurance is predicting on 09/26. She has a home visit on 09/24 with therapy and feels this will be beneficial as she will be able to modify her home to hopefully make her impending discharge safer. VSS. Staff does not offer any concerns. Jaye Ma, [facility] [address] [place], [address], [facility] 09/22/2021 13:13:03 09/25/2021 text/html F/U advanced OA s/p elective right hip replacement and chronic medical conditions. Pt. seen today while sitting up in w/c. I was able to witness the pt. walking with her walker in her room with a steady gait. Pt. states that she is happy to go home but reports that she is also sad to go as she has enjoyed her time here and getting to know staff and other patients that she has connected with. Pt. denies any fever, chills, fatigue, cough, wheezing, SOB, CP, palpitations, abd. pain, N/V/D/C. States that she has been sleeping well. Reports a good appetite. States that she continues with pain into the right hip but this has generally been well controlled. Nursing denies any concerns. Therapy reports that home visit went well. Shamika casiano, [facility] 10/06/2021 08:24:58 OBGyn Episode No OBEpisode recorded.
--- OUTSIDE RECORDS SUMMARY | 2024-08-26 16:18 | XMS_ITS | Encounter Summary ---
Author Organization [facility] Address [address] [place] [address] Care Team Providers Care Stripper And Opaquer Apprentice Name Role Phone Priya Gallego MD Primary Care Provider + Encounter Details Date Type Department Care Team (Late st Contact Info) Description 11/11/2019 Lab Requisition [facility] [address] [place] [address] Michael Vidales MD Social History Tobacco Use Types Packs/Day Years Used Date Smoking Tobacco: Never Assessed Sex and Gender Information Value Date Recorded Sex Assigned at Not on file Gender Identity Not on file Sexual Orientation Not on file documented as of this encounter Plan of Treatment Not on file documented as of this encounter Procedures Procedure Name Priority Date/Time Associated Diagnosis Comments SARS-COV-2 (COVID-19) IN HOUSE Routine 11/11/2019 6:14 AM CDT documented in this encounter Results * SARS-COV-2 (COVID-19) IN HOUSE (11/11/2019 6:14 AM CDT) COVID-19 PCR Not detected Not detected, Invalid 11/11/2019 9:50 PM CDT [facility] Microbiology SPECIMEN FROM NASOPHARYNGEAL STRUCTURE / Unknown Collection / Unknown 11/11/2019 6:14 AM CDT 11/11/2019 12:53 PM CDT Narrative [facility] - 11/11/2019 9:50 PM CDT [...] Michael Vidales MD LAB - MICROBIOLOGY ORDERABLES [facility] [address] [place], [place] [address], [facility] [phone] documented in this encounter Visit Diagnoses Not on filedocumented in this encounter Care Teams Stripper And Opaquer Apprentice Relationship Specialty Start Date End Date Priya Gallego MD [address] [place] [address] PCP - General 12/05/17 documented as of this encounter
--- OUTSIDE RECORDS SUMMARY | 2024-08-26 16:19 | XMS_ITS | Encounter Summary ---
Author Organization [facility] Address [address] [place] [address] Phone Care Team Providers Care Industrial Machine Assembler Name Role Phone Juan David Ashby MD Unavailable Hector Rendon MD Unavailable [phone] Rohit Cardoso MD Unavailable Sung Do MD Unavailable [phone] Silvano Byrne MD Primary Care Provider [phone] Shawn Alves MD Unavailable Nati Garcia [facility] Primary Care Pro vider Reason for Visit * Reason Comments Medication Refill Encounter Details Date Type Department Care Team (Late st Contact Info) Description 07/29/2021 Refill [facility] - Internal Medicine - [place] Guido Staples [address] [place] [address] Silvano Byrne MD [address] [place] [address] Medication Refill Social History Tobacco Use Types [...] Recorded Total Score - Questions 1-9 0 10/0 07/2020 Sexually Active [facility] Comments Not Currently Comments No Sex and Gender Information Value Date Recorded Sex Assigned at Not on file Legal Sex Female 8:56 PM CDT Gender Identity Not on file Sexual Orientation Not on file 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 Requested Prescriptions Pending Prescriptions Disp Refills levothyroxine (SYNTHROID) 50 MCG Tablet [Pharmacy Med Name: LEVOTHYROXINE 50 MCG TABLET] 90 Tablet 1 Sig: TAKE 1 TABLET BY MOUTH EVERY DAY Thyroid Hormones Protocol Failed - 07/29/2021 7:41 AM Failed - Normal TSH in past 12 months No results found for: TSH Passed - Visit with relevant provider in past 12 months or upcoming 90 days Recent Visits Date Type Provider Dept 06/25/21 Office Visit Silvano Byrne MD [facility] 04/23/21 Office Visit Belinda Kelly APRN, PRE BILLING CLINICIAN [facility] 04/06/21 Office Visit Silvano Byrne MD [facility] 09/15/20 Office Visit Silvano Byrne MD [facility] Showing recent visits within past 365 days and meeting all other requirements Future Appointments No visits were found meeting these conditions. Showing future appointments within next 90 days and meeting all other requirements UNITY DEVELOPMENT MANAGER documented in this encounter Plan of Treatment Upcoming Encounters Date Type Department Care Team (Late st Contact Info) Description 09/14/2024 1:00 PM CD[facility] [address] [place] [address] Discharge Disposition: Discharged to home or Selfcare 09/21/2024 11:30 AM CDT [facility] [address] [place] [address] Leighann Crow, BOOM MAN, PRE BILLING CLINICIAN [address] [place] [address] Discharge Disposition: Discharged to home or Selfcare 09/27/2024 11:30 AM CDT Office Visit [facility] Medical [facility] - Internal Medicine [facility] [address] [place] [address] Nati Garcia, PAC [address] [place] [address] documented as of this encounter Goals Goal Patient Goal Type Associated Problems Recent Progress Patient-Stated? Author Healthy Lifestyle Healthy Lifestyle Carolyn Olivo, RN Note: Pace/increase activity documented as of this encounter Visit Diagnoses Not on filedocumented in this encounter Additional Health Concerns Assessment Noted Time PHQ-9 Depression Total Score: 0 04/06/20 21 10:00 AM CDT documented as of this encounter Care Teams Industrial Machine Assembler Relationship Specialty Start Date End Date Silvano Byrne MD [address] [address] PCP - General Family Medicine 02/25/20 03/23/24 Nati Garcia, PAC [address] [place] [address] PCP - General Physician Etiquette Coach 03/24/24 Juan David Ashby MD Consulting Physician General Surgery 12/27/19 Hector Rendon MD [address] [place] [address] Consulting Physician Medical Oncology 12/27/19 Rohit Cardoso MD [address] [place] [address] Consulting Physician Radiation Oncology 12/27/19 Sung Do MD [address] [address] Consulting Physician Cardiovascular Disease - Cardiology 12/28/19 Shawn Alves MD [address] [address] Consulting Physician Colon and Rectal Surgery 05/10/22 documented as of this encounter
--- OUTSIDE RECORDS SUMMARY | 2024-08-26 16:19 | XMS_ITS | Encounter Summary ---
Author Organization [facility] Address [address] [place] [address] Phone Care Team Providers Care Pet Supplies Salesperson Name Role Phone Juan David Ashby MD Unavailable Hector Rendon MD Unavailable [phone] Rohit Cardoso MD Unavailable [phone] Sung Do MD Unavailable Silvano Byrne MD Primary Care Provider Shawn Alves MD Unavailable Nati Garcia [facility] Primary Care Pro vider Reason for Visit * Reason Comments Medication Refill Encounter Details Date Type Department Care Team (Late st Contact Info) Description 04/04/2022 Refill [facility] - Family Medicine [facility] [address] [place] [address] Silvano Byrne MD [address] [place] [address] Medication Refill Social History Tobacco Use Types [...] Date 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 No / Unsure 03/27/2022 12:51 PM CDT documented as of this encounter Miscellaneous Notes * Telephone Encounter - Poppy Membreno RN - 04/04/2022 3:53 PM CDT Medication failed the protocol, provider to review and approve the medication order if appropriate. Requested Prescriptions Pending Prescriptions Disp Refills amoxicillin (AMOXIL) 500 MG Capsule [Pharmacy Med Name: AMOXICILLIN 500 MG CAPSULE] 4 Capsule 4 Sig: TAKE 4 CAPSULES BY MOUTH 30-60 MINUTES PRIOR TO DENTAL PROCEDURE. Not Delegated - Off Protocol Failed - 04/04/2022 3:47 PM Failed - This refill cannot be delegated Passed - Visit with relevant provider in past 12 months or upcoming 90 days Recent Visits Date Type Provider Dept 02/05/22 Office Visit Belinda Kelly APRN, CARTRIDGE GAUGER [facility] 10/09/21 Office Visit Silvano Byrne MD [facility] 06/25/21 Office Visit Silvano Byrne MD [facility] 04/23/21 Office Visit Belinda Kelly APRN, [facility] 04/06/21 Office Visit Silvano Byrne MD [facility] Showing recent visits within past 365 days and meeting all other requirements Future Appointments Date Type Provider Dept 04/22/22 Appointment Silvano Byrne MD [facility] Showing future appointments within next 90 days and meeting all other requirements documented in this encounter Plan of Treatment Upcoming Encounters Date Type Department Care Team (Late st Contact Info) Description 09/14/2024 1:00 PM CDT Lab [facility] [address] [place] [address] Discharge Disposition: Discharged to home or Selfcare 09/21/2024 11:30 AM CDT Office Visit [facility] [address] [place] [address] Leighann Crow, VAMP SEAMER, CARTRIDGE GAUGER [address] [place] [address] Discharge Disposition: Discharged to home or Selfcare 09/27/2024 11:30 AM CDT Office Visit [facility] Medical Group - Internal Medicine - [place] [address] [place] [address] Nati Garcia, [facility] [address] [place] [address] documented as of this encounter Goals Goal Patient Goal Type Associated Problems Recent Progress Patient-Stated? Author Healthy Lifestyle Healthy Lifestyle Carolyn Olivo, RN Note: Pace/increase activity documented as of this encounter Visit Diagnoses Not on filedocumented in this encounter Additional Health Concerns Assessment Noted Time PHQ-9 Depression Total Score: 0 04/06/20 21 10:00 AM CDT documented as of this encounter Care Teams Pet Supplies Salesperson Relationship Specialty Start Date End Date Silvano Byrne MD [address] [facility] [address] [place] [address] PCP - General Family Medicine 02/25/20 03/23/24 Nati Garcia PAC [address] [place] [address] PCP - General Physician Machine Sizer 03/24/24 Juan David Ashby MD Consulting Physician General Surgery 12/27/19 Hector Rendon MD [address] [place] [address] Consulting Physician Medical Oncology 12/27/19 Rohit Cardoso MD [address] [place], [place] [address] Consulting Physician Radiation Oncology 12/27/19 Sung Do MD [address] [address] Consulting Physician Cardiovascular Disease - Cardiology 12/28/19 Shawn Alves MD [address] [address] Consulting Physician Colon and Rectal Surgery 05/10/22 documented as of this encounter
--- OUTSIDE RECORDS SUMMARY | 2024-08-26 16:19 | XMS_ITS | Encounter Summary ---
Author Organization [facility] Address [address] [facility] [place] [address] Phone Care Team Providers Care Property Investor Name Role Phone Juan David Ashby MD Unavailable [phone] Hector Rendon MD Unavailable [phone] Rohit Cardoso MD Unavailable [phone] Sung Do MD Unavailable Silvano Byrne MD Primary Care Provider [phone] Shawn Alves MD Unavailable Nati Garcia [facility] Primary Care Pro vider Reason for Visit * Reason Comments Medication Refill Encounter Details Date Type Department Care Team (Late st Contact Info) Description 05/11[facility] [address] [place] [address] Hector Rendon MD [address] [place] [address] Medication Refill Social History Tobacco [...] Start Date 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 No / Unsure 04/23/2021 1:13 PM CDT documented as of this encounter Miscellaneous Notes * Telephone Encounter - Radha Evans RN - 05/11/2021 8:10 AM CDT Refilled Letrozole documented in this encounter Plan of Treatment Upcoming Encounters Date Type Department Care Team (Late st Contact Info) Description 09/14/2024 1:00 PM CD[facility] [address] [place] [address] Discharge Disposition: Discharged to home or Selfcare 09/21/2024 11:30 AM CDT [facility] [address] [place] [address] Leighann Crow, TICKET SALES AGENT, GYN [address] [place] [address] Discharge Disposition: Discharged to home or Selfcare 09/27/2024 11:30 AM CDT Office Visit [facility] - Internal Medicine - [place] [address] [place] [address] Nati Garcia, PAC [address] [place] [address] documented as of this encounter Goals Goal Patient Goal Type Associated Problems Recent Progress Patient-Stated? Author Healthy Lifestyle Healthy Lifestyle Carolyn Olivo, RN Note: Pace/increase activity documented as of this encounter Visit Diagnoses Not on filedocumented in this encounter Additional Health Concerns Assessment Noted Time PHQ-9 Depression Total Score: 0 04/06/20 21 10:00 AM CDT documented as of this encounter Care Teams Property Investor Relationship Specialty Start Date End Date Silvano Byrne MD [address] [place] [address] PCP - General Family Medicine 02/25/20 03/23/24 Nati Garcia, PAC [address] [place] [address] PCP - General Physician Metal Moulder'S Assistant 03/24/24 Juan David Ashby MD Consulting Physician General Surgery 12/27/19 Hector Rendon MD [address] [place] [address] Consulting Physician Medical Oncology 12/27/19 Rohit Cardoso MD [address] [facility] [facility] [place] [address] Consulting Physician Radiation Oncology 12/27/19 Sung Do MD [address] [place] [address] Consulting Physician Cardiovascular Disease - Cardiology 12/28/19 Shawn Alves MD [address] [facility] [address] [place] [address] Consulting Physician Colon and Rectal Surgery 05/10/22 documented as of this encounter
--- OUTSIDE RECORDS SUMMARY | 2024-08-26 16:19 | XMS_ITS | Encounter Summary ---
Author Organization [facility] Address [address] [place] [address] Phone Care Team Providers Care Computed Tomography Technologist Name Role Phone Juan David Ashby MD Unavailable Hector Rendon MD Unavailable Rohit Cardoso MD Unavailable Sung Do MD Unavailable Silvano Byrne MD Primary Care Provider Shawn Alves MD Unavailable Nati Garcia 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 No / Unsure 03/27/2022 12:51 PM CDT documented as of this encounter Miscellaneous Notes * Telephone Encounter - Poppy Membreno RN - 04/15/2022 12:08 PM CDT Medication failed the protocol, provider to review and approve the medication order if appropriate. Requested Prescriptions Pending Prescriptions Disp Refills levothyroxine (SYNTHROID) 50 MCG Tablet [Pharmacy Med Name: LEVOTHYROXINE 50 MCG TABLET] 90 Tablet 1 Sig: TAKE 1 TABLET BY MOUTH EVERY DAY Thyroid Hormones Protocol Failed - 04/14/2022 8:23 AM Failed - Normal TSH in past 12 months No results found for: TSH Passed - Visit with relevant provider in past 12 months or upcoming 90 days Recent Visits Date Type Provider Dept 02/05/22 Office Visit Belinda eKlly APRN, TARE MAN Kristopher Hoffman 10/09/21 Office Visit Silvano Byrne MD [facility] 06/25/21 Office Visit Silvano Byrne MD [facility] 04/23/21 Office Visit Belinda Kelly APRN, TARE MAN Drewabdias Hoffman Showing recent visits within past 365 days and meeting all other requirements Future Appointments Date Type Provider Dept 04/22/22 Appointment Silvano Byrne MD [facility] Showing future appointments within next 90 days and meeting all other requirements documented in this encounter Plan of Treatment Upcoming Encounters Date Type Department Care Team (Late st Contact Info) Description 09/14/2024 1:00 PM CDT Lab [facility] Oncology Services [address] [place] [phone] Discharge Disposition: Discharged to home or Selfcare 09/21/2024 11:30 AM CDT Office Visit [facility] Oncology Services [address] [place] [phone] Leighann Crow, BRASS POURER, TARE MAN [address] [place] [address] Discharge Disposition: Discharged to home or Selfcare 09/27/2024 11:30 AM CDT Office Visit [facility] - Internal Medicine - [place] [address] [place] [address] [facility] [address] [place] [address] documented as of this encounter Goals Goal Patient Goal Type Associated Problems Recent Progress Patient-Stated? Author Healthy Lifestyle Healthy Lifestyle Carolyn Olivo, RN Note: Pace/increase activity documented as of this encounter Visit Diagnoses Not on filedocumented in this encounter Additional Health Concerns Assessment Noted Time PHQ-9 Depression Total Score: 0 04/06/20 21 10:00 AM CDT documented as of this encounter Care Teams Computed Tomography Technologist Relationship Specialty Start Date End Date Silvano Byrne MD [address] [facility] [address] [place] [address] PCP - General Family Medicine 02/25/20 03/23/24 Nati Garcia, [facility] [address] [place] [address] PCP - General Physician Land Leases And Rentals Manager 03/24/24 Juan David Ashby MD Consulting Physician General Surgery 12/27/19 Hector Rendon MD [address] [place] [address] Consulting Physician Medical Oncology 12/27/19 Rohit Cardoso MD [address] [place] [address] Consulting Physician Radiation Oncology 12/27/19 Sung Do MD [address] [address] Consulting Physician Cardiovascular Disease - Cardiology 12/28/19 Shawn Alves MD [address] [address] Consulting Physician Colon and Rectal Surgery 05/10/22 documented as of this encounter
[2024-08-26 16:21] VITALS: BP 119/58; PULSE 102; RESP 16; TEMP 37.2; O2SAT 100
--- NOTE | 2024-08-26 16:35 | ED.URI ---
HPI - URI/Sore Throat General Chief Complaint: Upper Respiratory Infection Stated Complaint: STUFFY NOSE,COUGH Time Seen by Provider: 08/26/24 16:38 Source: patient and RN notes reviewed Mode of arrival: ambulatory Limitations: no limitations History of Present Illness HPI Narrative: 64-year-old female with asthma presented for complaint of nasal congestion mild cough. Onset today. She states she has had intermittent nasal congestion over the past few months, stating she wakes with a stuffy nostril which will improve when she sits on the side of her bed. Does not take antihistamines. States she is concerned for bronchitis. Denies sob, wheezing, n/v/d/f/c. elicited complaint: cough Related Data Home Medications ?Medication ?Instructions ?Recorded ?Confirmed ?Last Taken ?Type aspirin 81 mg tablet,delayed 81 mg PO DAILY 05/24/19 10/20/22 Unknown History release furosemide 20 mg tablet 20 mg PO DAILY 05/24/19 10/20/22 Unknown History cholecalciferol (vitamin D3) 50 2,000 unit PO DAILY 07/26/19 10/20/22 Unknown History mcg (2,000 unit) tablet letrozole 2.5 mg tablet 2.5 mg PO DAILY 04/06/22 10/20/22 Unknown History levothyroxine 50 mcg tablet 50 mcg PO DAILY 04/06/22 10/20/22 Unknown History metoprolol tartrate 50 mg tablet 50 mg PO BID 04/06/22 10/20/22 Unknown History multivitamin 1 tablet PO DAILY 04/06/22 10/20/22 Unknown History fluticasone furoate 100 1 inh inhalation DAILY 10/20/22 10/20/22 Unknown History mcg-vilanterol 25 mcg/dose inhalation powder (Breo Ellipta) albuterol sulfate 90 mcg/actuation inhalation 08/26/24 Unknown History aerosol inhaler fluticasone 250 mcg-salmeterol 50 inhalation 08/26/24 Unknown History mcg/dose blistr powdr for inhalation (Koby Hobbs) Allergies Allergy/AdvReac Type Severity Reaction Status Date / Time cyclobenzaprine Allergy Mild SHAKEY/DIZZ Verified 08/26/24 16:37 Y levofloxacin Allergy Mild Itching Verified 08/26/24 16:37 metaxalone Allergy Mild SHAKY/DIZZY Verified 08/26/24 16:37 naproxen Allergy Mild SHAKY/DIZZU Verified 08/26/24 16:37 Y orphenadrine Allergy Mild SHAKEY/DIZZ Verified 08/26/24 16:37 Y Quinolones Allergy Mild Dizziness Verified 08/26/24 16:37 rofecoxib Allergy Mild SHAKEY/DIZZ Verified 08/26/24 16:37 Y diclofenac Allergy Unknown Dizziness Verified 08/26/24 16:37 misoprostol Allergy Unknown Dizziness Verified 08/26/24 16:37 Review of Systems Review of Systems: per HPI [facility] Past Medical History Medical History (Updated 08/26/24 @ 17:07 by Cami Braun APRN) Breast cancer Osteopenia Medicare annual wellness visit, subsequent Headache Asthma Hypothyroidism (acquired) (~2004) History of cardiac pacemaker (~09/2018) FHx: breast cancer Post menopausal problems Skin lesion of face Skin neoplasm Surgical History Surgical History History of lumbosacral spine surgery S/P thyroid surgery (~1998) History of heart surgery (~2006) Family History Family History Mother Hypertension Family history of elevated blood lipids Family history of Alzheimer's disease Family history of malignant neoplasm Father Asthma Family history of osteoarthritis Family history of chronic obstructive pulmonary disease Family history of malignant neoplasm of kidney Other Cerebrovascular accident Diabetes mellitus Family history of arthritis Family history of gout Family history of mental disorder Social History Social History Smoking status: Never smoker Second hand tobacco smoke exposure: No Alcohol intake: never Exam Narrative: GENERAL: well-appearing EYES: PERRLA, conjunctivae clear ENT: Mucous membranes moist. TMs pearly calderon with dull light reflex bilaterally; no tragal tenderness. Oropharynx not erythematous without lesions or exudate, no drooling, no hoarseness, no trismus, uvula midline. No tripod positioning, muffled voice, soft palate or pharyngeal wall bulging NECK: Supple. No lymphadenopathy CHEST: Clear to auscultation, breath sounds equal. No wheezing, rhonchi, rales, or stridor. No respiratory distress, speaks in full sentences. Occasional health promotion specialist cough. HEART: Regular rate and rhythm. No murmur heard. SKIN: Warm, dry, no rash. NEURO: Alert and oriented x3. PSYCH: Normal mood and affect Course Course Emergency Course: Patient is aware of diagnosis, understands and agrees to treatment plan. Anticipatory guidance given. Patient agrees to follow-up as directed and is aware of reasons to seek care at the emergency department. Portions of this record may have been created with voice recognition software Level of Care: Express Care Visit Vital Signs Vital signs: Vital Signs Temperature 98.9 F 08/26/24 16:21 Pulse Rate 102 H 08/26/24 16:21 Respiratory Rate 16 08/26/24 16:21 Blood Pressure 119/58 L 08/26/24 16:21 Pulse Oximetry 100 08/26/24 16:21 Oxygen Delivery Room Air 08/26/24 16:21 Temperature 98.9 F 08/26/24 16:21 Pulse Rate 102 H 08/26/24 16:21 Respiratory Rate 16 08/26/24 16:21 Blood Pressure 119/58 L 08/26/24 16:21 Pulse Oximetry 100 08/26/24 16:21 Oxygen Delivery Room Air 08/26/24 16:21 reviewed MDM - URI/Sore Throat MDM Narrative Medical decision making narrative: neg flu and covid. Discussed physical exam findings. Advised supportive measures and signs/symptoms to go to the ER. Pt is appropriate for outpt treatment and f/u. Differential Diagnosis Differential diagnosis: Likely upper respiratory infection, sinusitis and viral infection Lab Data Labs: Lab Results 08/26/24 Range/Units 16:58 POC Influenza A Ag Negative (Negative) POC Influenza B Ag Negative (Negative) POC SARS CoV-2 Ag Negative (Negative) Discharge Plan Discharge Clinical Impression: Upper respiratory infection Patient Disposition: Home, Self-Care Condition: Stable Instructions: Antibiotic Form, Upper Respiratory Infection (ED) Additional Instructions: flu and COVID negative today. It may be too early to detect the virus, therefore we recommend retesting at home in 1-2 days Continue to follow general precautions: frequent handwashing, wear a mask, isolate/social distance, and avoid crowds if you have a fever. You must be fever free for 24 hours without the use of fever reducing medication (Tylenol/ibuprofen) before returning to work/school/crowds. Recommendations: Flonase spray and Zyrtec (or Claritin/Tonia) over the counter Cough syrup may cause drowsiness; avoid driving or take it at night time. Tylenol 1000mg every 8 hours as needed for pain Symptomatic treatment includes: rest, fluids, and increase humidity of the air at home. Follow up with your primary care provider in 1 week. Go to the ER for worsening symptoms or concerns. Patient Language: Yoruba Prescriptions: No Action fluticasone furoate-vilanterol [Breo Ellipta] 100-25 mcg/dose Blister With Device 1 inh INHALATION DAILY fluticasone propion-salmeterol [Wixela Inhub] 250-50 mcg/dose blister with device INHALATION albuterol sulfate 90 mcg/actuation HFA aerosol inhaler INHALATION metoprolol tartrate 50 mg tablet 50 mg PO BID levothyroxine 50 mcg tablet 50 mcg PO DAILY letrozole 2.5 mg tablet 2.5 mg PO DAILY multivitamin [Daily Multivitamin] Tablet 1 tablet PO DAILY cetirizine [Zyrtec] 10 mg tablet 10 mg PO DAILY PRN (Reason: congestion) Qty: 10 0RF cholecalciferol (vitamin D3) 2,000 unit tablet 2,000 unit PO DAILY aspirin 81 mg tablet,delayed release (DR/EC) 81 mg PO DAILY furosemide 20 mg tablet 20 mg PO DAILY Follow-up/Referrals: Jose,FELICIA Damian [Primary Care Provider] - Time of Disposition: 17:07
[2024-08-26 17:00] LABS: EDCOVIDSCREEN Negative (Negative); EDINFLUASCREEN Negative (Negative); EDINFLUBSCREEN Negative (Negative)
== END 2024-08-26 17:10 | disposition home or self-care (01) ==
PROVIDERS: Emergency Provider Nurse Practitioner Family; PCP Physician Assistant
DX: J06.9 Acute upper respiratory infection, unspecified (principal); Z20.822 Contact with and (suspected) exposure to COVID-19; E03.9 Hypothyroidism, unspecified; M85.80 Other specified disorders of bone density and structure, unspecified site; J45.909 Unspecified asthma, uncomplicated; Z95.0 Presence of cardiac pacemaker; Z85.3 Personal history of malignant neoplasm of breast; Z85.828 Personal history of other malignant neoplasm of skin; Z79.82 Long term (current) use of aspirin
CPT/HCPCS: 87426; 87804; 99212; G0463

== ENCOUNTER 2025-05-12 15:03 | Outpatient (CLI) | payer OTHER, SELFPAY ==
--- NOTE | ~2025-05-12 | XR_ITS ---
EXAMINATION: XR chest 2V, 05/12/2025 15:18 CATERING SERVER HISTORY: CHF; SOB UPON EXERTION; EXTREMITY SWELLING COMPARISON: No comparisons available. Technique: 2 views obtained. Findings: Mild pulmonary venous congestion. Small basilar infiltrates and effusions with loculated pleural effusion noted on the right side. No pneumothorax. Mild cardiomegaly. Mediastinal and hilar contours are within normal limits. Post sternotomy. Impression: CHF. Superimposed probable pneumonia. Reviewed, dictated and finalized at location P. RING SERVER Impression: CHF. Superimposed probable pneumonia.
--- OUTSIDE RECORDS SUMMARY | 2025-05-12 14:00 | XMS_ITS | Encounter Summary ---
Author Organization [facility] Healthcare Address [address] [place] [address] Care Team Providers Care Chainstitch Pants Outseamer Name Role Phone Sung Do MD Unavailable [phone] Saul Marquez MD Unavailable Nati Garcia Primary Care Prov ider Reason for Visit * Reason Comments Edema Shortness of Breath Encounter Details Date Type Department Care Team (Late st Contact Info) Description 05/12/2025 2:00 PM CLOCKSMITH Office Visit [facility] Cardiology [address] [facility] [address] [place] [id number] Rosa Tellez NP [address] [place] [address] Nonischemic cardiomyopathy (HCC) (Primary Dx); Chronic heart failure with preserved ejection fraction; Lipid screening; S/P placement of leadless cardiac pacemaker; Deep vein thrombosis (DVT) of left upper extremity, unspecified chronicity, unspecified vein (HCC); History of mitral valve repair; Moderate aortic stenosis by prior echocardiogram Social History Tobacco Use Types Packs/Day Years Used Date Smoking Tobacco: Never Smokeless Tobacco: Never Alcohol Use Standard Drinks/Week Comments Never 0 (1 standard drink = 0.6 oz pur e alcohol) AUDIT-C Answer Date Recorded Q1: How often do you have a drink containing alc ohol? Never 08/27/2021 Average Number of Drinks Not on file 022 Frequency of Binge Drinking Not on file 08/08 Personal Safety Answer Date Recorded Have you ever been in or are you currently in a harmful physical or emotional relationship or is someone making you feel afraid or unsafe? Denies 01/26/2025 Comments No Sex and Gender Information Value Date Recorded Sex Assigned at Not on file Legal Sex Female 12:19 AM CLOCKSMITH Gender Identity Not on file Sexual Orientation Not on file Occupation Industry Job Start Date Job End Date Retired Not on file Not on file Not on file documented as of this encounter Last Filed Vital Signs Vital Sign Reading Time Taken Comments Blood Pressure 124/62 05/12/2025 2:03 PM CLOCKSMITH Pulse 60 05/12/2025 2:03 PM CLOCKSMITH Temperature - - Respiratory Rate - - Oxygen Saturation 95% 05/12/2025 2:03 PM CLOCKSMITH Inhaled Oxygen Concentration - - Weight 53.5 kg (118 lb) 05/12/2025 2:03 PM CLOCKSMITH Height 162.6 cm (5' 4) 05/12/2025 2:03 PM CLOCKSMITH Body Mass Index 20.25 05/12/2025 2:03 PM CLOCKSMITH documented in this encounter Functional Status * BP Location Answer Date of Assessment Author Right arm 05/12/2025 2:03 PM CLOCKSMITH Taisha Aguillon MA * BP Location Answer Date of Assessment Author Right arm 05/12/2025 2:03 PM CLOCKSMITH Taisha Aguillon MA documented as of this encounter Progress Notes * Rosa Tellez NP - 05/12/2025 2:00 PM CST Images from the original note were not included. [facility] Cardiology [address] [place] [address] Date of Visit: 05/12/2025 Patient ID: Mariam Parish 1960 Chief Complaint Patient presents with Edema Shortness of Breath Mariam Parish is a 64 y.o. female who is a former patient of Dr. Do with a history of cardiomyopathy, mitral valve repair and Bi V pacer returning for complaint of worsening edema and shortness of breath. History of Present Illness: Mariam Parish is a 64 y.o. female with a PMHx of mitral valve insufficiency (prior MV repair, followed by Dr. Hightower), cardiomyopathy, symptomatic PVC's. Prophylactic ABx prior to dental/surgical procedures for MV repair. She established care with Dr. Do in 2014 at which time her echocardiogram EF slightly worse 35-40% down from 46% with moderate to severe mitral regurgitation change from mild to moderate regurgitation per echo in 2013. Echo 08/27/2018 EF declined to 30% moderate MR. EF improved to 50-55% in 2019 and has remained stable in that range since then. In 2017 to 2018 she was being followed by pulmonology for recurrent pleural effusions requiring thoracentesis. In November of 2018 she underwent BiV PPM for CHB (BiV due to need for chronic RV pacing and h/o LV dysfunction), EF improved prior to PPM to 50% mod MR, severe TR noted. In 2019 she was treated for breast cancer with lumpectomy and radiation. This was followed by chemotherapy, Letrozole and Prolia. She had right KAMRYN on 08/27/21 which she reports was uneventful. Her sister is very involved in her care and usually accompanies her to appointments. October [address] Osullivan in [place] performed device generator change on 10/19/2024. When she went for follow-up appointment 10 days later she was found to have a hematoma of the pocket and it was infected. Even with antibiotics and debridement the infection did not resolve and the device became infected including the leads (Pseudomonas). Everything was extracted at [facility] by Dr. Marcelo on 12/08/2024 and she had implantation of a micra leadless device. Her metoprolol was held and she was put on lisinopril. She was discharged from [facility] on 12/17/2024 and transferred to [facility] in [place] where she continued to receive IV antibiotics by PICC line with a wound VAC. She then went home and the wound was managed by [facility]. 05/12/2025 office visit with PASTE PLANT SUPERVISOR: We made this appointment today to evaluate worsening shortness of breath and lower extremity edema. About 3 weeks ago we directed her to increase her furosemide to 20mg b.i.d. which seemed to help for a little bit but now her swelling has increased. She is short ofbreath with walking and talking. She has to walk very slowly in order not to get short of breath. She sees her finish production manager next week. This morning she woke up with the lower part of her left arm and her left hand swollen. Medical History: Past Medical History: Diagnosis Date Anemia Anxiety Arthritis Asthma Carcinoma of upper-outer quadrant of right breast in female, estrogen receptor positive (HCC) 12/08/2019 right lumpectomy w radiation Cardiomyopathy CHF (congestive heart failure) (HCC) ALVARENGA (dyspnea on exertion) Endometriosis Heart murmur History of radiation therapy 12/2019 right breast ca Hodgkin's disease (HCC) Hodgkin's disease of lymph nodes of multiple sites (HCC) 1976 neck HX OTHER MEDICAL Arrhythmias (h/o post-op A. Fib) HX OTHER MEDICAL Valvular Heart Disease s/p MV repair HX OTHER MEDICAL Cardiomyopathy HX OTHER MEDICAL Depression, with Anxiety Hypothyroidism Migraines Mitral valve insufficiency Mitral valve regurgitation PONV (postoperative nausea and vomiting) Past Surgical History: Procedure Laterality Date BACK SURGERY BREAST BIOPSY Right 10/22/2019 BREAST LUMPECTOMY Right 11/2019 CARDIAC SURGERY CERVICAL DISC SURGERY EYE SURGERY INSERT / REPLACE / REMOVE PACEMAKER 3 years ago LAPAROSCOPIC ENDOMETRIOSIS FULGURATION MITRAL VALVE REPAIR 2008 NECK SURGERY 1999 THYROIDECTOMY, PARTIAL TOTAL HIP ARTHROPLASTY Right 08/27/2021 Social History Tobacco Use Smoking status: Never Smoker Smokeless tobacco: Never Used Substance Use Topics Alcohol use: Never Drug use: Never Family History Problem Relation Age of Onset COPD Father COPD; Alzheimer's disease Mother Alzheimer's Disease; Cancer Brother Cancer Paternal Grandmother Breast cancer Paternal Grandmother Cancer Paternal Grandfather Hypertension Other Arthritis Other Stroke Other Seizures Other Gout Other Diabetes Other Ovarian cancer Neg Hx Thyroid cancer Neg Hx Review of Systems Constitutional: Positive for weight gain. Negative for malaise/fatigue and weight loss. Cardiovascular: Positive for dyspnea on exertion (Chronic, but recently worsened) and leg swelling.Negative for chest pain, claudication, near-syncope, orthopnea, palpitations, paroxysmal nocturnal dyspnea and syncope. Respiratory: Negative for cough and sleep disturbances due to breathing. Hematologic/Lymphatic: Negative for bleeding problem. Neurological: Negative for light-headedness (changes positions slowly to avoid lightheadedness). Vital Signs: BP 124/62 (BP Location: Right arm, Patient Position: Sitting) Pulse 60 Ht 162.6 cm (5' 4) Wt53.5 kg (118 lb) SpO2 95% BMI 20.25 kg/m?? Physical Exam Constitutional: General: She is not in acute distress. Appearance: She is well-developed. HENT: Head: Normocephalic and atraumatic. Eyes: General: No scleral icterus. Conjunctiva/sclera: Conjunctivae normal. Neck: Vascular: JVD present. Comments: Scarring Cardiovascular: Rate and Rhythm: Normal rate and regular rhythm. Heart sounds: Normal heart sounds. No murmur heard. Comments: Left chest to left axilla dry dressing in place. Left radial and brachial pulses are easily palpable. Pulmonary: Effort: Pulmonary effort is normal. No respiratory distress. Breath sounds: Examination of the right-middle field reveals decreased breath sounds. Examination of the right-lower field reveals decreased breath sounds. Decreased breath sounds present. Musculoskeletal: Left forearm: Swelling present. Left hand: Swelling present. Normal capillary refill. Normal pulse. Right lower leg: Edema present. Left lower leg: Edema present. Comments: Left forearm and hand have 2+ pitting edema skin is warm with normal coloration. LLE 1+ pedal and pretibial edema, RLE 2-3+ pedal and pretibial edema. Skin: General: Skin is warm and dry. Neurological: Mental Status: She is alert and oriented to person, place, and time. Psychiatric: Mood and Affect: Mood normal. Behavior: Behavior normal. Allergies Allergen Reactions Misoprostol Other (See comments) Light headed Amitriptyline Cyclobenzaprine Dizziness Diclofenac Other (See comments) lightheaded Levofloxacin Dizziness Metaxalone Unknown and Dizziness Naproxen Dizziness Orphenadrine Unknown and Dizziness Rofecoxib Dizziness Tramadol Dizziness Current Outpatient Medications: acetaminophen (TYLENOL) 500 mg tablet, Take 1 tablet (500 mg total) by mouth as needed for pain, Disp: , Rfl: albuterol HFA (PROVENTIL HFA,VENTOLIN HFA,PROAIR HFA) 90 mcg/actuation inhaler, Inhale 2 puffs every 6 (six) hours as needed for wheezing, Disp: , Rfl: apixaban (ELIQUIS) 5 mg tablet, Take 1 tablet (5 mg total) by mouth 2 (two) times a day, Disp: , Rfl: cholecalciferol (VITAMIN D-3) 2000 unit tablet, Take 1 tablet (2,000 Units total) by mouth nightly,Disp: , Rfl: denosumab (PROLIA) 60 mg/mL syringe, Inject 1 mL (60 mg total) under the skin every 6 (six) months,Disp: , Rfl: ferrous sulfate 325 mg (65 mg of elemental iron) tablet, Take 1 tablet (325 mg total) by mouth 2 (two) times a day, Disp: , Rfl: furosemide (LASIX) 20 mg tablet, Take 1 tablet (20 mg total) by mouth 2 (two) times a day, Disp: 180 tablet, Rfl: 1 letrozole (FEMARA) 2.5 mg tablet, Take 1 tablet (2.5 mg total) by mouth nightly, Disp: , Rfl: levothyroxine (SYNTHROID) 50 mcg tablet, , Disp: , Rfl: metoprolol tartrate (LOPRESSOR) 50 mg immediate release tablet, Take 1 tablet (50 mg total) by mouth 2 (two) times a day, Disp: 180 tablet, Rfl: 3 mirtazapine (REMERON) 7.5 mg tablet, Take 1 tablet (7.5 mg total) by mouth nightly, Disp: , Rfl: multivitamin tablet, daily, Disp: , Rfl: Wixela Inhub 250-50 mcg/dose diskus inhaler, Inhale 1 puff 2 (two) times a day, Disp: , Rfl: aspirin 81 mg enteric coated tablet, Take 1 tablet (81 mg total) by mouth daily (Patient not taking: Reported on 05/12/2025), Disp: , Rfl: pantoprazole DR (PROTONIX) 40 mg EC tablet, Take 1 tablet (40 mg total) by mouth daily (Patient nottaking: Reported on 05/12/2025), Disp: , Rfl: Lab Results Component Value Date POTASSIUM 4.2 04/14/2025 BUNSER 24 04/14/2025 CREATININE 0.77 04/14/2025 CHOL 165 03/23/2019 TRIG 128 03/23/2019 LDLCALC 86 03/23/2019 HDL 53 03/23/2019 Lab Results Component Value Date WBC 7.75 10/31/2024 HGB 12.0 10/31/2024 HCT 37.0 10/31/2024 MCV 87.3 10/31/2024 TTE on 11/04/24 showed EF 72% AMOR 12/07/24 showed EF 60-65%. TTE 04/05/2025 LVEF 53% Assessment: Diagnoses and all orders for this visit: Nonischemic cardiomyopathy (HCC) (Primary) - XR Chest Pa Lateral 2 Views; Future Chronic heart failure with preserved ejection fraction Lipid screening - POCT lipid panel S/P placement of leadless cardiac pacemaker Deep vein thrombosis (DVT) of left upper extremity, unspecified chronicity, unspecified vein (HCC) History of mitral valve repair Moderate aortic stenosis by prior echocardiogram Plan/Recommendations: She has a history of nonischemic cardiomyopathy with chronic heart failure, EF normal on her most echocardiograms. When I last saw her in January she appeared euvolemic but now she appears mildly decompensated. I will send her for a chest x-ray today since the right lung field is very diminished. I will then give further instructions on furosemide In the past she did not tolerate both beta-gavino and Luis or Arb due to hypotension. She did well with the metoprolol alone. Therefore I took her off lisinopril and resumed her metoprolol. I doubt she would tolerate resumption of an LUIS/ARB/ARNI. She has a pacemaker for history of complete heart block. Due to her cardiomyopathy and left bundle-branch block she had a biventricular pacemaker. Earlier this year she had a generator change but it became infected and had to be explanted. She now has a leadless pacemaker. Her infection appears to have healed. She could proceed with dental work with the appropriate antibiotic prophylaxis before hand. She is currently on Eliquis because she developed a DVT in the left upper extremity following the infection of the pacemaker pocket. She has good pulses on exam today and the swelling is quite localized. The chance of a recurrent DVT is extremely small since she has been compliant on her Eliquis. This edema looks dependent based on the positioning of her arm from the way she slept. I directed herto sleep with the arm elevated and I and a straight position tonight. We will need to continue monitoring her ventricular function now that she does not have biventricular pacing. Echo was repeated in late March and LVEF was at the lower end of normal. We will planto repeat an echocardiogram every 1-2 years. She also has a history of mitral valve repair. She sees cardiothoracic surgeon annually. Mitral valve appeared to be functioning adequately on recent echocardiogram. Aortic stenosis was moderate. Again, we will continue to monitor this with annual echocardiogram. She has an appointment scheduled with me for next month so we will keep the same. My total encounter time on 05/12/2025 was 45 minutes which was spent in the activities documented inthe note. This includes time spent prior to the visit and after the visit in direct care of the patient. This time does not include time spent in any separately reportable services. 05/12/2025 AUBREY Sanchez- Nurse Practitioner with [facility] Cardiology This note is dictated and transcribed using PrePay Direct Software. Management Trainee Marketing variancesmay occur. Despite proofreading, typographical errors may occur. KSMITH documented in this encounter Plan of Treatment Scheduled Orders Name Type Priority Associated Diagnoses Orde r Schedule XR Chest Pa Lateral 2 Views Imaging Routine Nonischemic cardiomyopathy (HCC) Expected: 05/12/2025, Expires: 06/11/2025 documented as of this encounter Procedures Procedure Name Priority Date/Time Associated Diagnosis Comments POCT LIPID PANEL Routine 05/12/2025 2:07 PM CLOCKSMITH Lipid screening documented in this encounter Results * (ABNORMAL) POCT lipid panel (05/12/2025 2:07 PM CLOCKSMITH) Cholesterol, POC 128 <200 MG/DL HDL, POC 22(A) >=40 mg/dL Triglycerides, POC 72 <=149 mg/dL LDL Cholesterol POC 92 <=129 mg/dL Chol/HDL Ratio, POC 4.1 NONE Non-HDL Cholesterol, POC 106 NONE mg/dL Cholesterol Total, POC 128 30 - 199 mg/dL Capillary blood 05/12/2025 2 :07 PM CLOCKSMITH Rosa Tellez NP POINT OF CARE TEST ORDERA BLES Final Result documented in this encounter Visit Diagnoses Diagnosis Nonischemic cardiomyopathy (HCC)- Primary Other primary cardiomyopathies Chronic heart failure with preserved ejection fraction Lipid screening Screening for lipoid disorders S/P placement of leadless cardiac pacemaker Deep vein thrombosis (DVT) of left upper extremity, unspecified chronicity, unspecified vein (HCC) History of mitral valve repair Moderate aortic stenosis by prior echocardiogram documented in this encounter Historical Medications * This list may reflect changes made after this encounter. mirtazapine (REMERON) 7.5 mg tablet Take 1 tablet (7.5 mg total) by mouth nightly 04/26/2025 added in this encounter Care Teams Chainstitch Pants Outseamer Relationship Specialty Start Date End Date Nati Garcia PA [address] [address] PCP - General Neurosurgery 10/14/24 Sung Do MD Consulting Physician Cardiology 10/16/18 Saul Marquez MD Surgeon Orthopedic Surgery 08/28/21 documented as of this encounter
--- OUTSIDE RECORDS SUMMARY | 2025-05-12 20:48 | XMS_ITS | Encounter Summary ---
Author Organization [facility] Address [address] [place] [address] Care Team Providers Care Geriatric Psychiatrist Name Role Phone Priya Gallego MD Primary Care Provider + Encounter Details Date Type Department Care Team (Late st Contact Info) Description 11/11/2019 Lab Requisition [facility] [address] [place] [address] Michael Vidales MD Social History Tobacco Use Types Packs/Day Years Used Date Smoking Tobacco: Never Assessed Comments Unknown Sex and Gender Information Value Date Recorded Sex Assigned at Not on file Legal Sex Female 6:30 AM RAVELER Gender Identity Not on file Sexual Orientation [...] Not detected, Invalid 11/11/2019 9:50 PM CDT [facility] MICROBIOLOGY Microbiology SPECIMEN FROM NASOPHARYNGEAL STRUCTURE / Unknown Collection / Unknown 11/11/2019 6:14 AM CDT 11/11/2019 12:53 PM CDT Narrative [facility] MICROBIOLOGY - 11/11/2019 9:50 PM CDT This Real Time RT-PCR assay was developed and its performance characteristics determined by [facility]biology [facility]. This test has been authorized [...] sooner. Michael Vidales MD LAB - MICROBIOLOGY ORDERABL ES Final Result [facility] MICRO[facility] [address] [place], [place] [address], [facility] [phone] documented in this encounter Visit Diagnoses Not on filedocumented in this encounter Care Teams Geriatric Psychiatrist Relationship Specialty Start Date End Date Priya Gallego MD [address] [place] [address] PCP - General 12/05/17 documented as of this encounter
--- OUTSIDE RECORDS SUMMARY | 2025-05-12 20:48 | XMS_ITS | Encounter Summary ---
Author Organization [facility] Address [address] [facility] [address] [place] [address] Care Team Providers Care Machine Assembler Name Role Phone Jeremy Stinson MD Primary Care Provider +- [phone] Jeremy Stinson MD Primary Care Provider + [phone] Jeremy Stinson MD Primary Care Provider [phone]- [phone] Antoinette Thomas MD Primary Care Prov ider Jeremy Stinson MD Primary Care Provider + [phone] Sung Do MD Unavailable [phone] Mer Szymanski MD Primary Care Provider Sung Do MD Primary Care Provider + Silvano Byrne MD Primary Care Provider [phone] Saul Marquez MD Unavailable [phone] Nati Garcia Primary Care Prov ider Encounter Details Date Type Department Care Team (Late st Contact Info) Description 08/23/2016 Orders Only [facility] Provider, Historical, MD [address] [place] [address] Social History Tobacco Use Types Packs/Day Years Used Date Smoking Tobacco: Never Alcohol Use Standard Drinks/Week Comments No 0 (1 standard drink = 0.6 oz pur e alcohol) Comments Unknown Sex and Gender Information Value Date Recorded Sex Assigned at Not on file Legal Sex Female 12:19 AM DOCUMENT REVIEWER Gender Identity Not on file Sexual Orientation Not on file documented as of this encounter Plan of Treatment Not on file documented as of this encounter Procedures Procedure Name Priority Date/Time Associated Diagnosis Comments CARDIOLOGY REPORT 08/23/2016 documented in this encounter Results * CARDIOLOGY REPORT (08/23/2016) Anatomical Region Laterality Modality Other Narrative 08/23/2016 Ordered by an unspecified provider. Bella Provider [facility] VO Final Result documented in this encounter Visit Diagnoses Not on filedocumented in this encounter Care Teams Machine Assembler Relationship Specialty Start Date End Date Jeremy Stinson MD [address] [place] [address] PCP - General 10/04/16 10/28/16 Jeremy Stinson MD [address] [place] [address] PCP - General 08/29/16 10/03/16 Jeremy Stinson MD [address] [place] [address] PCP - General 12/11/06 08/28/16 Antoinette Thomas MD [address] [place] [address] PCP - General 10/29/16 11/05/16 Jeremy Stinson MD [address] [place] [address] PCP - General 11/06/16 04/29/19 Mer Szymanski MD [address] [place] [address] PCP - General Family Medicine 04/30/19 03/28/20 Sung Do MD [address] [place] [address] PCP - General Cardiology 03/29/20 03/29/20 Silvano Byrne MD [address] [place] [address] [address] PCP - General Family Medicine 03/30/20 10/13/24 Nati Garcia PA [address] [place] [address] [address] PCP - General Neurosurgery 10/14/24 Sung Do MD [address] [place] [address] Consulting Physician Cardiology 10/16/18 Saul Marquez MD [address] [facility] [address] [place] [address] Surgeon Orthopedic Surgery 08/28/21 documented as of this encounter
--- OUTSIDE RECORDS SUMMARY | 2025-05-12 20:48 | XMS_ITS | Encounter Summary ---
Author Organization [facility] Healthcare Address [address] [place] [address] Care Team Providers Care Press Clippings Cutter And Paster Name Role Phone Jeremy Stinson MD Primary Care Provider + [phone] Sung Do MD Unavailable Mer Szymanski MD Primary Care Provider Sung Do MD Primary Care Provider + Silvano Byrne MD Primary Care Provider [phone] Saul Marquez MD Unavailable [phone] Nati Garcia Primary Care Prov ider Encounter Details Date Type Department Care Team (Late st Contact Info) Description 09/14/2018 Telephone [facility] Imaging and Radiology [address] [place] [address] [place] [address] [address] Social History Tobacco Use Types Packs/Day Years Used Date Smoking Tobacco: Never Smokeless Tobacco: Never Alcohol Use Standard Drinks/Week Comments No 0 (1 standard drink = 0.6 oz pur e alcohol) Comments No Sex and Gender Information Value Date Recorded Sex Assigned at Not on file Legal Sex Female 12:19 AM INSTRUMENT ASSEMBLER Gender Identity Not on file Sexual Orientation Not on file documented as of this encounter Plan of Treatment Not on file documented as of this encounter Visit Diagnoses Not on filedocumented in this encounter Care Teams Press Clippings Cutter And Paster Relationship Specialty Start Date End Date Jeremy Stinson MD [address] [place] [address] PCP - General 11/06/16 04/29/19 Mer Szymanski MD [address] [place] [address] PCP - General Family Medicine 04/30/19 03/28/20 Sung Do MD [address] [place] [address] PCP - General Cardiology 03/29/20 03/29/20 Silvano Byrne MD [address] [address] PCP - General Family Medicine 03/30/20 10/13/24 Nati Garcia PA [address] [address] PCP - General Neurosurgery 10/14/24 Sung Do MD [address] [place] [address] Consulting Physician Cardiology 10/16/18 Saul Marquez MD [address] [address] Surgeon Orthopedic Surgery 08/28/21 documented as of this encounter
--- OUTSIDE RECORDS SUMMARY | 2025-05-12 20:48 | XMS_ITS | Encounter Summary ---
Author Organization [facility] Address [address] [place] [address] Phone Care Team Providers Care Sr Risk Management Consultant Name Role Phone Symone Juan David Fisher MD Unavailable Hector Rendon MD Unavailable Rohit Cardoso MD Unavailable Sung Do MD Unavailable Silvano Byrne MD Primary Care Provider Shawn Alves MD Unavailable Nati Garcia [facility] Primary Care Pro vider Reason for Visit * Reason Comments Medication Refill Encounter Details Date Type Department Care Team (Late st Contact Info) Description 05/16/2020 [facility] [address] [place] [address] Hector Rendon MD [address] [place] [address] Medication Refill Social History Tobacco [...] 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 Not on file Not on file No t on file documented as of this encounter Miscellaneous Notes * Telephone Encounter - Radha Evans RN - 05/16/2020 8:03 AM FRONT OFFICE AGENT Refilled Letrozole 2.5mg #90 +1 next appointment 06/20/20 T OFFICE AGENT documented in this encounter Plan of Treatment Upcoming Encounters Date Type Department Care Team (Late st Contact Info) Description 05/17/2025 10:30 AM FRONT OFFICE AGENT Office Visit [facility] [place] [facility] [place] [place] [address] Nati Garcia PAC [address] [place] [address] 05/26/2025 2:00 PM FRONT OFFICE AGENT Office Visit [facility] [place] [facility] [address] [place] [address] Nati Garcia PAC [address] [place] [address] 10/25/2025 11:00 AM CDT Office Visit [facility] Oncology Services [address] [place] [address] Hector Rendon MD [address] [place] [address] Discharge Disposition: Discharged to home or Selfcare 10/25/2025 11:30 AM CDT Clinical Support [facility] Oncology Services [address] [place] [phone] Hector Rendon MD [address] [place] [address] Discharge Disposition: Discharged to home or Selfcare documented as of this encounter Visit Diagnoses Not on filedocumented in this encounter Care Teams Sr Risk Management Consultant Relationship Specialty Start Date End Date Silvano Byrne MD [address] [address] PCP - General Family Medicine 02/25/20 03/23/24 Nati Garcia PAC [address] [address] PCP - General Physician Administrative Resources Associate 03/24/24 Juan David Ashby MD Consulting Physician General Surgery 12/27/19 Hector Rendon MD [address] [place] [address] Consulting Physician Medical Oncology 12/27/19 Rohit Cardoso MD [address] [place] [address] Consulting Physician Radiation Oncology 12/27/19 Sung Do MD [address] [facility] [address] [address] Consulting Physician Cardiovascular Disease - Cardiology 12/28/19 Shawn Alves MD [address] [facility] [address] [place] [address] Consulting Physician Colon and Rectal Surgery 05/10/22 documented as of this encounter
--- OUTSIDE RECORDS SUMMARY | 2025-05-12 20:48 | XMS_ITS | Encounter Summary ---
Author Organization [facility] Address [address] [place] [address] Care Team Providers Care Senior Compensation Analyst Name Role Phone Sung Do MD Unavailable [phone] Saul Marquez MD Unavailable Nati Garcia Primary Care Prov ider Encounter Details Date Type Department Care Team (Late st Contact Info) Description 04/05/2025 Results Follow-Up [facility] Cardiology [address] [place] [phone] Rosa Tellez NP [address] [place] [address] Transthoracic Echo (TTE) Complete W Doppler/CF Social History Tobacco Use Types Packs/Day Years [...] on file Legal 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
--- OUTSIDE RECORDS SUMMARY | 2025-05-12 20:48 | XMS_ITS | Clinical Summary ---
Author Organization [facility] Address [address] [facility] [place] [address] Care Team Providers Care Sheet Tailer Name Role Phone Priya Gallego MD Primary Care Provider + Source Comments [facility],non-owned Affiliates and Associated Physician Practices is amultiple site organization consisting of ambulatory clinics and hospital sitesin [place], [place], [place] and [place]. This disclosure is being madepursuant to the Care Everywhere program and may not contain all information available regarding this patient. 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 Gender Identity Not on file Sexual Orientation [...] SCREENING 1961 LIPID TESTING 1961 MAMMOGRAM 1961 HIV SCREENING 1976 HEPATITIS C SCREENING 06/29/1979 DTAP/TDAP/TD VACCINES (1 - Tdap) 1980 PNEUMOCOCCAL VACCINE 50+ (1 of 1 - PCV) 2011 ZOSTER VACCINE (1 of 2) 2011 DEPRESSION SCREENING 07/07/2024 COVID-19 VACCINE ( - 2023-2 5 season) 2025 INFLUENZA VACCINE (#1) 2025 Respiratory Syncytial Virus (RSV) Vaccine Pt: or [...] to complete this topic MENINGOCOCCAL (Group B) VACC INE SHARED DECISION-MAKING Aged Out No longer eligibl e based on patient's age to complete this topic MENINGOCOCCAL GROUPS A/C/Y/W VACCINE Aged Out No longer eligible b ased on patient's age to complete this topic Insurance MEDICARE MEDICAID - OUT OF STATE Care Teams Sheet Tailer Relationship Specialty Start Date End Date Priya Gallego MD [address] [place] [address] PCP - General 12/05/17
--- OUTSIDE RECORDS SUMMARY | 2025-05-12 20:48 | XMS_ITS | Clinical Summary ---
Author Organization [facility] Address [facility] [place] [address] Care Team Providers Care Contact Center Representative Name Role Phone MiladcathieRosalee ennis MD Unavailable [phone] Jan Marcelo MD Unavailable Nati Garcia Primary Care Provider [phone] Russell Phelan MD Unavailable [phone] Allergies Active Allergy Reactions Criticality Noted Date Comments Cyclobenzaprine Dizziness,Unknown,Ot her (see comment) High 12/07/2007 Light headed Diclofenac Dizziness 12/06/2024 Levofloxacin Unknown,Dizziness,Palpitations High 08/2007 Metaxalone Unknown,Dizziness,Ot her (see comment) Low 12/07/2007 Light headed Misoprostol Dizziness 12/06/2024 Naproxen Dizziness 12/06/2024 Orphenadrine Unknown,Dizziness,Ot her (see comment) High 12/07/2007 Light headed Tramadol Dizziness Low 12/07/2007 Rofecoxib Dizziness,Unknown,Ot her (see comment) High 12/07/2007 Light headed Medications albuterol sulfate HFA 108 (90 Base) MCG/ACT inhaler inhale two puffs every 4 hours as needed 08/09/2024 Active WIXELA INHUB 250-50 MCG/ACT inhaler inhale one puff 2 times daily 10/13/2024 Active furosemide (LASIX) 20 MG tablet Take 1 tablet (20 mg total) by mouth every morning. 09/07/2024 Active letrozole (FEMARA) 2.5 MG tablet Take 1 tablet by mouth daily. 09/19/2024 Active levothyroxine (SYNTHROID) 50 MCG tablet Take 1 tablet (50 mcg total) by mouth daily. 09/08/2024 Active multi vitamin/minerals (THERA-M ENHANCED) tablet Take 1 tablet by mouth daily. Active Vitamin D3 (VITAMIN D) 50 mcg tablet Take 1 tablet (50 mcg total) by mouth daily. Active apixaban (ELIQUIS) 5 MG tabletIndication s:Deep Vein Thrombosis Take 1 tablet (5 mg total) by mouth 2 (two) times daily. Indications : Blood Clot in a Deep Vein 60 tablet 4 01/24/2025 Active ferrous sulfate, 65 mg elemental, 325 (65 FE) MG tablet Take 1 tablet (325 mg total) by mouth 2 (two) times daily with meals. 30 tablet 1 01/24/2025 Active pantoprazole EC (PROTONIX) 40 MG tablet Take 1 tablet (40 mg total) by mouth daily. 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 She was seen in medical oncology consultation and not recommended to receive chemotherapy and instead was recommended to be placed on an aromatase inhibitor after completion of right breast radiotherapy. She completed right partial breast radiotherapy 02/16/2020, 50.4 Gy in 28 fractions. Personal history of Hodgkin lymphoma 12/08/2019 Overview (12/06/2024): Diagnosed in 1976 at the age of 16 years with Hodgkin's disease with a high right neck presentation, subtype in stage unknown. She received radiation therapy at [place] with what from her description sounded like mantle field radiotherapy. The treatment was originally to take 1 month but secondary to treatment breaks because of uncontrollable nausea she said it took closer to 3 months. She did not receive chemotherapy. CHB (complete heart block) 12/02/2018 Nonrheumatic tricuspid valve regurgitation 12/02 Status post biventricular pacemaker 10/16/2018 Overview (12/06/2024): Phoenix/[employer] BIV Pacemaker. Dx; NICM, CHF, LBBB, CHB. DOI 10/15/2018-Ramaswamy. Lamas remote monitoring. Left bundle branch block (LBBB) 10/16/2016 Overview (12/06/2024): LBBB (left bundle branch block) Sick sinus syndrome 10/16/2016 Overview (12/06/2024): Sick sinus syndrome Orthostatic hypotension 04/09/2016 Overview (12/06/2024): Hypotension, unspecified hypotension type Aortic valve insufficiency 07/25/2015 Overview (12/06/2024): Aortic valve insufficiency, unspecified etiology History of mitral valve repair 07/25/2015 Overview (12/06/2024): Hx of mitral valve repair Multiple premature ventricular complexes 016 Overview (12/06/2024): Symptomatic PVCs Nonischemic cardiomyopathy 07/25/2015 Overview (12/06/2024): Cardiomyopathy Pulmonary hypertension 07/25/2015 Overview (12/06/2024): Pulmonary HTN Non-rheumatic mitral regurgitation 12/27/2014 Overview (12/06/2024): Added automatically from request for surgery [id number] Acquired hypothyroidism 07/30/2008 Overview (12/06/2024): Hypothyroidism (acquired) Migraine with aura 07/30/2008 Asthma 07/07/2006 Family History Medical History Relation Comments No Known Problems Father No Known Problems Mother Relation Status Comments Father Mother Social History Tobacco Use Types Packs/Day Years Used Date Smoking Tobacco: Never Smokeless Tobacco: Never Tobacco Cessation:Counseling Given: Not Answered Alcohol Use Standard Drinks/Week Comments Not Currently 0 (1 standard drink = 0.6 oz pur e alcohol) [facility] Utilities Answer Date Recorded In the past 12 months has e [place], gas, oil, or water [employer] threatened to shut off services in your home? No 12/07/2024 Humiliation, Afraid, Rape, and Kick questionnair e Answer Date Recorded Within the last year, have y ou been afraid of your partner or ex-partner? No 12/07/2024 Within the last year, have y ou been humiliated or emotionally abused in other ways by your partner or ex-partner? No Within the last year, have y ou been kicked, hit, slapped, or otherwise physically hurt by your partner or ex-partner? No 12/07/2024 Within the last year, have y ou been raped or forced to have any kind of sexual activity by your partner or ex-partner? No 12/07/2024 Overall Financial Resource Strain (CARDIA) Answe r Date Recorded How hard is it for you to pa y for the very basics like food, housing, medical care, and heating? Not hard at all 12/07/2024 Hunger Vital Sign Answer Date Recorded Within the past 12 months, y ou worried that your food would run out before you got the money to buy more. Never true 12/08/19 25 Within the past 12 months, t he food you bought just didn't last and you didn't have money to get more. Never true 12/07/2024 PRAPARE - Transportation Answer Date Re corded In the past 12 months, has l ack of transportation kept you from medical appointments or from getting medications? No 09/2024 In the past 12 months, has l ack of transportation kept you from meetings, work, or from getting things needed for daily living? No 12/07/2024 Housing Stability Vital Sign Answer Amandeep e Recorded In the last 12 months, was t here a time when you were not able to pay the mortgage or rent on time? No 12/07/2024 In the past 12 months, how m any times have you moved where you were living? 0 12/07/2024 At any time in the past [address] [facility], were you homeless or living in a mcc (including now)? No 12/07/2024 Comments Unknown Sex and Gender Information Value Date Recorded Sex Assigned at Female 12/07/2024 1:22 PM CDT Legal Sex Female 5:42 PM CDT Gender Identity Female 12/07/2024 1:22 PM CDT Sexual Orientation Not on file Last Filed Vital Signs Vital Sign Reading Time Taken Comments Blood Pressure 107/38 01/24/2025 8:14 AM CDT Pulse 53 01/24/2025 8:14 AM CDT Temperature 35.1 C (95.2 F) 01/24/2025 4:40 AM CDT Respiratory Rate 16 01/24/2025 8:14 AM CDT Oxygen Saturation 99% 01/24/2025 4:40 AM CDT Inhaled Oxygen Concentration - - Weight 52.6 kg (116 lb) 01/24/2025 4:40 AM CDT Height 162.6 cm (5' 4) 12/17/2024 3:10 PM CDT Body Mass Index 19.91 12/17/2024 3:10 PM CDT Plan of Treatment Health Maintenance Due Date Last Done Comments ASCVD LDL 1961 ASCVD Statin 1961 Annual Physical 1964 Hepatitis C 1979 RSV Immunization or 60+ Years (1 - Risk 60-74 years 1-dose series) 2021 Pneumococcal Vaccine: 50+ Years (3 of 3 - PCV20 or PCV21) 02/24/2025 02/25/2020, 06/20/2015 COVID-19 Vaccine (3 - season) 2025 09/27/2020, 09/05/2020 Influenza Adult (#1) 2025 02/29/2020 Colorectal Cancer Screening FIT/FOBT (1 Year) 12/21/2025 12/21/2024 Mammogram Screening 07/09/2026 07/09/2024, 07/09/2023, 06/13/2022, Additional history exists Cervical Cancer Screening Pap Smear (Age 30 to 64) Every 3 Years 12/22/2026 12/23/2023, 12/23/2023 Cervical Cancer Screening Pap with HPV Testing (Age 30 to 64) Every 5 Years 12/22/2028 12/23/2023 Cervical Cancer Screening with HPV 12/22/2028 DTaP, Tdap and Td Vaccines (2 - Td or Tdap) 02/28/2030 02/29/2020 Zoster Vaccines Completed 07/02/2023, 02/29/2020 Hepatitis A Vaccines Aged Out No long er eligible based on patient's age to complete this topic Meningococcal B Vaccine Aged Out No l onger eligible based on patient's age to complete this topic Meningococcal Vaccine Aged Out No kvng tirso eligible based on patient's age to complete this topic RSV Immunizations Under 20 Months Aged Out No longer eligible based on patient's age to complete this topic Interventions Community Resource Recommendations Community Resource Services Recommended Domains Addressed Status Status Reason/Outcome Date/Time [facility] - [facility] Depression, Stress Recommended 01/18/2025 2:51 AM CDT [facility] ([facility]) [facility] [place] [facility] Services Depression, Stress Recommended 01/18/2025 2:51 AM CDT from Last 12 Months Medical Devices Implanted Type Area Bruise Trimmer Device Identifier Shelf Expiration Date Model / Serial / Lot Medtronic Micra Av2-12/09/2024 Implanted:Qty: 1 on 12/09/2024 by Jan Marcelo MD Generator [employer] CARDIAC RHYTHM AND HEART FAILURE - DIV M 03/20/2026 [id number] / [id number] / Description:DX: CHB/ Pacemak er Dependant Explanted Type Area Bruise Trimmer Device Identifier Shelf Expiration Date Model / Serial / Lot Phoenix Ra-10/15/2018 Implanted:05/2019 (Quantity not on file) Explanted:Qty : 1 on 12/09/2024 by Jan Marcelo MD Lead Implant [employer] [id number]-46 / [id number] / Description:Tendril Phoenix Rv-10/15/2018 Implanted:05/2019 (Quantity not on file) Explanted:Qty : 1 on 12/09/2024 by Jan Marcelo MD Lead Implant [employer] [id number]-52 / [id number] / Phoenix Lv-10/15/2018 Implanted:05/2019 (Quantity not on file) Explanted:Qty : 1 on 12/09/2024 by Jan Marcelo MD Lead Implant [employer] 1458Q-[id number] / [id number] / Phoenix Quadra Allure Bi-V- 5 Implanted: by Rosalee Osullivan MD (Quantity not on file) Explanted:Qty : 1 on 12/09/2024 by Jan Marcelo MD Pacemaker [employer] [id number] / [id number] / Description:DX: SSS Procedures Procedure Name Priority Date/Time Associated Diagnosis Comments HC OCCULT BLOOD FECAL SCRN Routine 12/21/2024 7:35 AM CDT from Last 3 Months or Most Recently Relevant to Health Maintenance Results * OCCULT BLOOD, FECES, SCREENING (12/21/2024 7:35 AM CDT) OCCULT BLOOD SCREEN NEGATIVE NEGATIVE 12/21/2024 8:30 AM CDT [facility] STOOL SPECIMEN / Unknown 12/21/2024 7:35 AM CDT us Nickie Marie NP BODY FLUIDS AND STOOLS ORDERABL ES Final Result [facility] [address] [place] [address], from Last 3 Months or Most Recently Relevant to Health Maintenance Insurance [employer] MEDICARE Advance Directives Documents on File Type Date Recorded Patient Make Up Editor Expl anation Advance Directives and Livin g Will 12/23/2024 12:45 PM Advance Directives and Livin g Will 12/23/2024 12:45 PM * DNR (Latest Code Status on File) Date Activated Date Inactivated Comments 12/17/2024 4:09 PM 01/24/2025 12:26 PM * Full Code Date Activated Date Inactivated Comments 12/07/2024 1:03 PM 12/17/2024 2:34 PM Care Teams Contact Center Representative Relationship Specialty Start Date End Date Nati Garcia PA [address] [place] [address] PCP - General PHYSICIAN DECK SUPERVISOR 12/07/24 Rosalee Osullivan MD [address] [place] [address] CARDIOVASCULAR DISEASE 12/07/24 Jan Marcelo MD [address] [place] [id number] Consulting Physician CLINICAL CARDIAC ELECTROPHYSIOLOGY 12/07/24 Russell Phelan MD [address] [facility] [address] [place], [place] [id number] Consulting Physician RADIOLOGY 01/20/25 01/20/26
--- OUTSIDE RECORDS SUMMARY | 2025-05-12 20:48 | XMS_ITS | Clinical Summary ---
Author Organization [facility] Address [address] [place] [address] Care Team Providers Care Highway Patrol Pilot Name Role Phone Sung Do MD Unavailable [phone] Saul Marquez MD Unavailable [phone] Nati Garcia Primary Care Prov ider Allergies Active Allergy Reactions Criticality Noted Date [...] (six) hours as needed for wheezing Active cholecalciferol (VITAMIN D-3) 2000 unit tabletIndications :Vitamin D Deficiency Take 1 tablet (2,000 Units total) by mouth nightly Active letrozole (FEMARA) 2.5 mg tabletIndications :Early Breast Cancer HR Positive and Postmenopausal Take 1 tablet (2.5 mg total) by mouth nightly 05/16/20 20 Active denosumab (PROLIA) 60 mg/mL syringe Inject 1 mL (60 mg total) under the skin every 6 (six) months Active aspirin 81 mg enteric coated tablet Take 1 tablet (81 mg total) by mouth daily Active multivitamin tablet daily Active levothyroxine (SYNTHROID) 50 mcg tablet 07/18/19 23 Active Wixela Inhub 250-50 mcg/dose diskus inhaler Inhale 1 puff 2 (two) times a day 09/03/19 25 Active ferrous sulfate 325 mg (65 mg of elemental iron) tablet Take 1 tablet (325 mg total) by mouth 2 (two) times a day 01/25/[address] (PROTONIX) 40 mg EC tablet Take 1 tablet (40 mg total) by mouth daily 01/25/20 25 Active apixaban (ELIQUIS) 5 mg tablet Take 1 tablet (5 mg total) by mouth 2 (two) times a day 01/25/20 25 Active acetaminophen (TYLENOL) 500 mg tablet Take 1 tablet (500 mg total) by mouth as needed for pain Active metoprolol tartrate (LOPRESSOR) 50 mg immediate release tabletIndications :Nonischemic cardiomyopathy (HCC) Take 1 tablet (50 mg total) by mouth 2 (two) times a day 180 tablet 3 02/04/20 25 Active furosemide (LASIX) 20 mg tabletIndications :Pleural effusion associated with pulmonary infection Take 1 tablet (20 mg total) by mouth 2 (two) times a day 180 tablet 1 05/10/20 25 Active mirtazapine (REMERON) 7.5 mg tablet Take 1 tablet (7.5 mg total) by mouth nightly 04/26/20 25 Active furosemide (LASIX) 20 mg tabletIndications :Pleural effusion associated with pulmonary infection Take 1 tablet (20 mg total) by mouth every morning 90 tablet 3 03/16/20 24 025 Discontinued furosemide (LASIX) 20 mg tabletIndications :Pleural effusion associated with pulmonary infection TAKE 1 TABLET BY MOUTH EVERY DAY IN THE MORNING 90 tablet 1 04/18/20 25 10/15/2 025 Discontinued(R eorder) furosemide (LASIX) 20 mg tabletIndications :Pleural effusion associated with pulmonary infection Take 1 tablet (20 mg total) by mouth every morning 90 tablet 1 04/20/20 25 025 Discontinued(R eorder) Active Problems Problem Noted Date Diagnosed Date Cardiac pacemaker in situ 02/09/2025 Overview (02/09/2025): Medtronic Micra AV2 Leadless Pacemaker. Dx; CHB. DOI 12/09/2024-[place]. [facility] remote. Cardiac resynchronization th erapy pacemaker (MANAGER FIELD-P) in place 03/19/2024 Aftercare following right hip joint replacement surgery 09/10/2021 Acute radiation dermatitis 03/30/2020 Adverse effect of radiation 03/30/2020 Borderline personality disorder 03/30/2020 Overview (03/30/2020): Her sister DJ states that the patient says she understands things but really does not. 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 Records were unavailable. Right partial breast radiotherapy, 50.4 Gy in 28 fractions, from 01/10/2020 thru 02/16/2020. Carcinoma of upper-outer sonia drant of right breast in female, estrogen receptor positive 12/08/2019 Overview (03/30/2020): Pathological stage IA ER/DE positive, HER2 negative an Oncotype DX score [...] stage unknown. She received radiation therapy at [facility] with what from her description sounded like mantle field radiotherapy. The treatment was originally to take 1 month but secondary to treatment breaks because of uncontrollable nausea she said it took closer to 3 months. She did not receive chemotherapy. Nonrheumatic tricuspid valve regurgitation 12/02 CHB (complete heart block) 12/02/2018 Chronic HFrEF (heart failure with reduced ejection fraction) (CMS/HCC) 12/02/2018 Non-rheumatic mitral regurgitation 09/16/2018 Overview (09/16/2018): Added automatically from request for surgery [id number] Dizziness 07/09/2018 H/O sinus bradycardia 04/16/2018 Pleural effusion 12/12/2017 Lipid screening 08/08/2017 Sick sinus syndrome 10/16/2016 Overview (11/29/2016): Sick sinus syndrome Left bundle branch block (LBBB) 10/16/2016 Overview (11/29/2016): LBBB (left bundle branch block) Orthostatic hypotension 04/09/2016 Overview (10/10/2016): Hypotension, unspecified hypotension type PVC (premature ventricular contraction) 07/25/19 16 Overview (10/10/2016): Symptomatic PVCs Nonischemic cardiomyopathy 07/25/2015 Overview (10/10/2016): Cardiomyopathy Idiopathic hypotension 07/25/2015 [...] Primary osteoarthritis of right hip 08/06/2021 09/10/2021 Status post biventricular pacemaker 10/16/2018 02/09/2025 Overview (10/28/2018): [employer] BIV Pacemaker. Dx; NICM, CHF, LBBB, CHB. DOI 10/15/2018-[place]. [facility] remote monitoring. Encounters Date Type Department Care Team Description 05/12/2025 2:00 PM RETAIL GENERAL MANAGER Office Visit [facility] Medical Group Cardiology [address] [place] [address] Rosa Mathias NP Nonischemic cardiomyopathy (HCC) (Primary Dx); Chronic heart failure with preserved ejection fraction; Lipid screening; S/P placement of leadless cardiac pacemaker; Deep vein thrombosis (DVT) of left upper extremity, unspecified chronicity, unspecified vein (HCC); History of mitral valve repair; Moderate aortic stenosis by prior echocardiogram 04/28/2025 Telephone [facility] Cardiology [address] [place] [address] [place] [phone] Neto Nayak MD 04/20/2025 Telephone [facility] Cardiology [address] [place] [address] [place] [phone] Rosa Mathias NP Medication Problem 04/14/2025 9:55 AM CDT Lab [address] [phone] 04/14/2025 Telephone [facility] Cardiology [address] [place] [address] [place] [phone] Rosa Mathias NP 04/05/2025 11:15 AM CDT Ancillary Procedure [place] [address] [address] [place] [phone] Nonischemic cardiomyopathy (HCC); History of mitral valve repair 04/05/2025 Results Follow-Up [facility] Cardiology [address] [place] [address] [place] [phone] Rosa Mathias NP Transthoracic Echo (TTE) Complete W Doppler/CF 03/31/2025 Telephone [facility] Cardiology [address] [place] [address] [place] [phone] Vivek Ruiz MD 03/30/2025 Telephone [facility] Cardiology [address] [place] [address] [place] [phone] Rosa Mathias NP Foot Swelling; Joint Swelling 03/21/2025 10:30 AM CDT Orders Only [facility] [address] [place] [address] 03/10/2025 Telephone [facility] Cardiology [address] [place] [address] [place] [phone] Cedric Blake MD 03/08/2025 10:30 AM CDT Orders Only [facility] [address] [place] [phone] 02/28/2025 10:30 AM CDT Orders Only [facility] [address] [place] [phone] 02/21/2025 11:30 AM CDT Orders Only [facility] [address] [place] [phone] 02/14/2025 2:00 PM CDT Orders Only [facility] [address] [place] [phone] 02/09/2025 Orders Only [facility] Medical Group Cardiology [address] [phone] Neto Nayak MD CHB (complete heart block) (Primary Dx); Cardiac pacemaker in situ from Last 3 Months Surgical History Surgery [...] h Anxiety Endometriosis Mitral valve insufficiency Cardiomyopathy ALVARENGA (dyspnea on exertion) Mitral valve regurgitation PONV (postoperative nausea a nd vomiting) Asthma Hypothyroidism Arthritis CHF (congestive heart failure) (HCC) Hodgkin's disease of lymph n odes [...] on file Legal Sex Female 12:19 AM RETAIL GENERAL MANAGER Gender Identity Not on file Sexual Orientation [...] Comments Blood Pressure 124/62 05/12/2025 2:03 PM RETAIL GENERAL MANAGER Pulse 60 05/12/2025 2:03 PM RETAIL GENERAL MANAGER Temperature 36.6 C (97.8 F) 01/26/2025 8:41 AM CDT Respiratory Rate 16 01/26/2025 8:41 AM CDT Oxygen Saturation 95% 05/12/2025 2:03 PM RETAIL GENERAL MANAGER Inhaled Oxygen Concentration - - Weight 53.5 kg (118 lb) 05/12/2025 2:03 PM RETAIL GENERAL MANAGER Height 162.6 cm (5' 4) 05/12/2025 2:03 PM RETAIL GENERAL MANAGER Body Mass Index 20.25 05/12/2025 2:03 PM RETAIL GENERAL MANAGER Plan of Treatment Health Maintenance Due Date Last Done Comments Cervical Cancer Screening 1960 Colon Cancer Screening-Colonoscopy 1960 Depression Screening 1960 Hepatitis B Screening 1979 Regular Well Visit/Exam 18-64 1979 Covid-19 Vaccine (2 - Pfizer risk series) 09/26/2020 09/05/2020 Pneumococcal vaccine <65 (3 of 3 - PCV20 or PCV21) 02/24/2025 02/25/2020, 06/20/2015 Influenza Vaccine (#1) 2025 02/29/2020 Breast Cancer Screening-Mammogram 07/09/2025 07/09/2024, 07/09/2024, 07/09/2023, Additional history exists DTaP/Tdap/Td Vaccine (2 - Td or Tdap) 02/28/2030 02/29/2020 Hepatitis C Screening Completed 06/02/2019 Zoster Vaccine Completed 07/02/2023, 02/29/2020 Medical Devices Implanted Type Area Automatic Serging Machine Operator Device Identifier Shelf Expiration Date Model / Serial / Lot Bard Peripheral Vascular [id number] Ultraclip Bard 17ga 10cm 2 Trigger Permanent Ultrasound - [id number] - [id number] Implanted:Qty: 1 on 10/22/2019 by Anthony Ambrosio MD at [facility] Breast Right: Breast Bard Peripheral Vascular 05/03/2022 [id number] / [id number] / [employer] 2088tc/52 Tendril Sts 6fr 52cm Is-1 Connector Active Fixation Bipolar Soft - [id number] - [id number] Implanted:Qty: 1 on 10/15/2018 by Jeffrey Stafford MD at [facility] Lead [employer] [id number] 09/03/2021 2088TC/52 / [id number] / [employer] 2088tc/46 Tendril Sts 6fr 46cm Is-1 Connector Bipolar Active Fixation - [id number] - [id number] Implanted:Qty: 1 on 10/15/2018 by Jeffrey Stafford MD at [facility] Lead [employer] [id number] 05/06/2021 2088TC/46 / [id number] / [employer] 1458q/86 Quartet 5fr [id number] 4 Electrode Is-4 Connector Steerable Tip - [id number] - [id number] Implanted:Qty: 1 on 10/15/2018 by Jeffrey Stafford MD at [facility] Lead [employer] [id number] 09/03/2021 1458Q/86 / [id number] / [employer] [id number] Quadra Allure Mp Rf 19x84zl Is4-Llll Is-1 Connector Thk6mm - [id number] - [id number] Implanted:Qty: 1 on 10/15/2018 by Jeffrey Stafford MD at [facility] Pacemaker [employer] [id number] 03/06/2020 [id number] / [id number] / Daig Yue[employer] [id number] Angio-Seal Vip [place]-Plus 6fr .035in 70cm Hemostatic Latex Free - [id number] Implanted:Qty: 1 on 09/23/2018 by Vivek Ruiz MD at [facility] [employer] 06/05/2019 [id number] / / [id number] Dep[employer] [id number] [place] 52mm Sector Hip Shell Acetabular Gription Sterile Latex Free - [id number] Implanted:Qty: 1 on 08/27/2021 by Saul Marquez MD at [facility] Right: Hip [employer] 03/06/2031 [id number] / / [id number] [employer] [id number] [place] 52mm 36mm Hip 10d +4mm Liner Acetabular Altrx Sterile Latex Free - [id number] Implanted:Qty: 1 on 08/27/2021 by Saul Marquez MD at [facility] Right: Hip [employer] 07/06/2026 [id number] / / [id number] [employer] [id number] [place] 6.5mm 35mm Acetabular Cancellous Screw Bone Sterile - [id number] Implanted:Qty: 1 on 08/27/2021 by Saul Marquez MD at [facility] Right: Hip [employer] 06/05/2031 0 / / [id number] [employer] [id number] Actis 99mm Collar Hip 2 Standard Offset Stem Femoral - [id number] Implanted:Qty: 1 on 08/27/2021 by Saul Marquez MD at [facility] Right: Hip [employer] 05/06/2028 [id number] / / [id number] [employer] [id number] Articul/Juma 36mm Cementless M Specification No Skirt Italian Neck Latex Free - [id number] Implanted:Qty: 1 on 08/27/2021 by Saul Marquez MD at [facility] Right: Hip [employer] 08/06/2025 [id number] / / [id number] Procedures Procedure Name Priority Date/Time Associated Diagnosis Comments POCT LIPID PANEL Routine 05/12/2025 2:07 PM RETAIL GENERAL MANAGER Lipid screening EGFR Routine 04/14/2025 10:16 AM CDT COMPREHENSIVE METABOLIC PANEL Routine 04/14/2025 10:16 AM CDT TRANSTHORACIC ECHO (TTE) COMPLETE W DOPPLER/CF WO CONTRAST Routine 04/05/2025 12:24 PM CDT Nonischemic cardiomyopathy (HCC) History of mitral valve repair SCREENING MAMMOGRAM BILATERAL W [facility] Schedule Routine, Read Routine (OP Routine) 06/13/2022 9:56 AM RETAIL GENERAL MANAGER Encounter for screening mammogram for malignant neoplasm of breast HEPATITIS C RNA, QUANTITATIVE, PCR Routine 06/02/2019 11:44 AM RETAIL GENERAL MANAGER from Last 3 Months or Most Recently Relevant to Health Maintenance Results * (ABNORMAL) POCT lipid panel (05/12/2025 2:07 PM RETAIL GENERAL MANAGER) Cholesterol, POC 128 <200 MG/DL HDL, POC 22(A) >=40 mg/dL Triglycerides, POC 72 <=149 mg/dL LDL Cholesterol POC 92 <=129 mg/dL Chol/HDL Ratio, POC 4.1 NONE Non-HDL Cholesterol, POC 106 NONE mg/dL Cholesterol Total, POC 128 30 - 199 mg/dL Capillary blood 05/12/2025 2 :07 PM RETAIL GENERAL MANAGER Rosa Mathias NP POINT OF CARE TEST ORDERA BLES Final Result * eGFR (04/14/2025 10:16 AM CDT) eGFR 87 >=60 mL/min/1. 73 m2 Comment: Interpretive Data Reference Interval Normal >/= 90 mL/min/1.73m2 Mildly decreased* 60 - 89 mL/min/1.73m2 Mildly to moderately decreased 45 - 59 mL/min/1.73m2 Moderately to severely decreased 30 - 44 mL/min/1.73m2 Severely decreased 15 - 29 mL/min/1.73m2 Kidney Failure < 15 mL/min/1.73m2 *Relative to young adult level Estimated glomerular filtration rate is determined by the 2020 CKD-EPI equation recommended by the National Kidney Foundation (A Unifying Approach to GFR Estimation: Recommendations of the NKF-ASK Task Force on Reassessing the Inclusion of Race in Diagnosing Kidney Disease, JASN 2020). The CKD-EPI equation should not be used for patients with unstable renal function and has not been validated in children and those over 70. Current interpretive data was last reviewed 2021. Blood 04/14/2025 10:1 6 AM CDT 04/14/2025 10:48 AM CDT Hector Pascual MD LAB BLOOD ORDERABLES Fin al Result [facility] Department [place] [address] * Comprehensive metabolic panel (04/14/2025 10:16 AM CDT) Sodium 136 135 - 145 mmol/L [facility] ([facility]) Potassium, pl 4.2 3.3 - 4.9 mmol/L [facility] ([facility]) Chloride 97 97 - 110 mmol/L [facility] ([facility]) CO2 28 22 - 32 mmol/L [facility] ([facility]) Anion gap 11 2 - 15 mmol/L [facility] ([facility]) BUN 24 6 - 25 mg/dL [facility]) Creatinine 0.77 0.60 - 1.10 mg/dL [facility] ([facility]) Glucose 101 70 - 199 mg/dL [facility] ([facility]) Comment: Interpretive Data Fasting glucose >/= 126 mg/dl is diagnostic for diabetes. Fasting is defined as no caloric intake for at least 8 hours. Fasting glucose between 100 mg/dl to 125 mg/dl is diagnostic of prediabetes. In a patient with classic symptoms of hyperglycemia or hyperglycemic crisis, a random glucose >/= 200 mg/dl is diagnostic for diabetes. In the absence of unequivocal hyperglycemia, results should be confirmed by repeat testing. The classification and Diagnosis of Diabetes Diabetes Care 2021; 46: S19-S40. Current interpretive data was last revised 2022. Calcium 9.8 8.5 - 10.3 mg/dL [facility]) Bilirubin, total 0.7 0.1 - 1.2 mg/dL [facility] ([facility]) Protein, pl 6.8 6.5 - 8.5 g/dL [facility] ([facility]) Albumin 4.0 3.5 - 5.0 g/dL [facility] ([facility]) Alk phos 96 40 - 130 Units/L [facility] ([facility]) ALT 18 7 - 45 Units/L [facility] ([facility]) AST 44 10 - 45 Units/L [facility] ([facility]) Comment:Hemolysis present. R esults may be affected. Blood 04/14/2025 10:1 6 AM CDT 04/14/2025 10:48 AM CDT us Hector Pascual MD LAB BLOOD ORDERABLES Fin al Result [facility] ([place]) [facility] Department [place] [address] * TRANSTHORACIC ECHO (TTE) COMPLETE W DOPPLER/CF WO CONTRAST (04/05/2025 12:24 PM CDT) EF Mod BP 53 % CONS SCIMAGE Anatomical Region Laterality Modality Ultrasound 04/05/2025 11:0 8 AM CDT Narrative 04/05/2025 3:08 PM CDT [facility] Medical Group Cardiology [address], [place] [address] [address], [place] [address] P:[phone] P:[phone] Echocardiographic Report Patient Name: YUSUF PARISH A : 1960 Study Date: 04/05/2025 11:08:32 AM Sex: F Assembly Room Supervisor: Irina Andrade (Reese)([place]), [facility] Location: [facility] Provider: ROSA MATHIAS Height(Cm): 163 BSA: 1.54 Weight(Kg): 52.6 Heart Rate: 55 BP: 134 / 56 Quality: Good Order Provider: ROSA MATHIAS PROCEDURES: Echocardiographic Report: Transthoracic echocardiogram with complete 2D, M-Mode, and color Doppler examination. With Strain Analysis. Definity/Optison could not be used due to: unable to obtain IV access. INDICATIONS: I42.8 Other cardiomyopathies and Z98.890 Other specified postprocedural states. MEASUREMENTS: 2D/MM Value Range Doppler Value Range EF Mod BP 53 % [ 54 - 74 ] MARLENE Vmax 1.15 cm2 [ 2.00 - 4.00 ] LV GLS -15.04 % AV Mean PG 6 mmHg LVIDd 2D 3.75 cm [ 3.80 - 5.20 ] AV Peak Jonas 1.68 m/s [ 1.00 - 1.70 ] LVIDs 2D 2.70 cm [ 2.20 - 3.50 ] AV Peak PG 11 mmHg LVPWd 2D 1.00 cm [ 0.60 - 0.90 ] AV VTI 33.34 cm IVSd 2D 1.02 cm [ 0.60 - 0.90 ] LVOT Diam 1.97 cm [ 1.70 - 2.10 ] AoR Diam 2D 3.08 cm [ 2.70 - 3.70 ] LVOT Peak Jonas 0.63 m/s [ 0.70 - 1.10 ] LA Volume 20.28 ml [ 22.00 - 52.00 ] LVOT VTI 14.37 cm LA Volume Index 13 cc/m2 [ 16 - 28 ] MV E Peak Jonas 1.21 m/s [ 0.60 - 1.30 ] RA Volume 11.38 ml MV A Peak Jonas 0.64 m/s [ 1.00 - 1.20 ] MV Decel Time 288 msec [ 104 - 258 ] PV Peak Jonas 0.71 m/s [ 0.40 - 0.80 ] TR Peak Jonas 2.17 m/s [ 1.00 - 2.80 ] TR Peak PG 26 mmHg RVSP 45.00 mmHg [ 10.00 - 36.00 ] RV S` 11.75 mmHg Lateral E` 0.07 m/s [ 0.10 - 0.15 ] Septal E` 0.06 m/s [ 0.08 - 0.15 ] E` 0.06 m/s E/E` 19 Tapse 1.59 cm [ 1.71 - 5.00 ] 2D/MM Value Range Doppler Value Range - FINDINGS: Interpretation Site: Exam was interpreted at [facility]. Left Ventricle: Normal left ventricular size. Mild concentric left ventricular hypertrophy. Left ventricular systolic function at the lower limit of normal. Diastolic dysfunction is present. Increased left heart filling pressures based on elevated E/E`. Ejection fraction is measured at 53 %. Global Longitudinal Strain is -15 %. Right Ventricle: The right ventricle is not well visualized. Left Atrium: The left atrium is not well visualized. Right Atrium: The right atrium is not well visualized. Atrial Septum: The atrial septum is not well visualized. Mitral Valve: Annular region thickened with prior annuloplasty. Trivial regurgitation of the mitral valve. Aortic Valve: Moderate aortic stenosis. Peak Velocity of 1.70 m/s. Mean gradient of 6.0 mmHg. Valve area of 1.3 cm2. Aortic cusps appear mildly sclerotic. Mild aortic valve regurgitation. Tricuspid Valve: Normal appearance of the tricuspid valve. Estimated peak RVSP is 45 mmHg. Moderate tricuspid regurgitation. Pulmonic Valve: Normal appearance of the pulmonic valve. Moderate pulmonic regurgitation. Pericardium: Normal pericardium with no significant pericardial effusion. Left pleural effusion seen. Aorta: Normal aortic root. IVC: Dilated IVC without respiratory collapse consistent with elevated right atrial pressure (>15 mmHg). CONCLUSIONS: Technically difficult study with poor image quality. Normal left ventricular size. Mild LVH. Left ventricular systolic function at the lower limit of normal. Diastolic dysfunction is present. Increased left heart filling pressures based on elevated E/E`. Ejection fraction is measured at 53 %. Global Longitudinal Strain is -15 %. Annular region thickened with prior annuloplasty. Trivial MR. Aortic valve appears sclerotic. Moderate aortic stenosis. V max 1.70 m/s. MG 6.0 mmHg. Valve area of 1.3 cm2. Mild aortic valve regurgitation. Mild pulmonary hypertension. RVSP 45 mmHg. Moderate tricuspid and pulmonic regurgitation. Electronically Signed By: Jose Cruz Betancoutr MD, [facility] 04/05/2025 3:07:39 PM CDT Procedure Note Jose Cruz Betancourt MD - 04/05/2025 [facility] Medical Group Cardiology [address] [facility] [address] [id number] [address] [facility] [address], [place] [address] P:[phone] P:[phone] Echocardiographic Report Patient Name: YUSUF PARISH A : 1960 Study Date: 04/05/2025 11:08:32 AM Sex: F Assembly Room Supervisor: Irina Mahoney)(CT), [facility] Location: [facility] Provider: ROSA MATHIAS Height(Cm): 163 BSA: 1.54 Weight(Kg): 52.6 Heart Rate: 55 BP: 134 / 56 Quality: Good Order Provider: ROSA MATHIAS PROCEDURES: Echocardiographic Report: Transthoracic echocardiogram with complete 2D, M-Mode, and color Dopplerexamination. With Strain Analysis. Definity/Optison could not be used due to: unable toobtain IV access. INDICATIONS: I42.8 Other cardiomyopathies and Z98.890 Other specified postproceduralstates. MEASUREMENTS: 2D/MM Value Range Doppler ValueRange EF Mod BP 53 % [ 54 - 74 ] MARLENE Vmax 1.15cm2 [ 2.00 - 4.00 ] LV GLS -15.04 % AV Mean PG 6mmHg LVIDd 2D 3.75 cm [ 3.80 - 5.20 ] AV Peak Jonas 1.68m/s [ 1.00 - 1.70 ] LVIDs 2D 2.70 cm [ 2.20 - 3.50 ] AV Peak PG 11mmHg LVPWd 2D 1.00 cm [ 0.60 - 0.90 ] AV VTI 33.34cm IVSd 2D 1.02 cm [ 0.60 - 0.90 ] LVOT Diam 1.97cm [ 1.70 - 2.10 ] AoR Diam 2D 3.08 cm [ 2.70 - 3.70 ] LVOT Peak Jonas 0.63m/s [ 0.70 - 1.10 ] LA Volume 20.28 ml [ 22.00 - 52.00 ] LVOT VTI 14.37cm LA Volume Index 13 cc/m2 [ 16 - 28 ] MV E Peak Jonas 1.21m/s [ 0.60 - 1.30 ] RA Volume 11.38 ml MV A Peak Jonas 0.64m/s [ 1.00 - 1.20 ] MV Decel Time 288 msec [ 104 - 258 ] PV Peak Jonas 0.71 m/s [ 0.40 - 0.80 ] TR Peak Jonas 2.17 m/s [ 1.00 - 2.80 ] TR Peak PG 26 mmHg RVSP 45.00 mmHg [ 10.00 - 36.00 ] RV S` 11.75 mmHg Lateral E` 0.07 m/s [ 0.10 - 0.15 ] Septal E` 0.06 m/s [ 0.08 - 0.15 ] E` 0.06 m/s E/E` 19 Tapse 1.59 cm [ 1.71 - 5.00 ] 2D/MM Value Range Doppler ValueRange - FINDINGS: Interpretation Site: Exam was interpreted at [facility] [place]. Left Ventricle: Normal left ventricular size. Mild concentric left ventricularhypertrophy. Left ventricular systolic function at the lower limit of normal. Diastolicdysfunction is present. Increased left heart filling pressures based on elevated E/E`.Ejection fraction is measured at 53 %. Global Longitudinal Strain is -15 %. Right Ventricle: The right ventricle is not well visualized. Left Atrium: The left atrium is not well visualized. Right Atrium: The right atrium is not well visualized. Atrial Septum: The atrial septum is not well visualized. Mitral Valve: Annular region thickened with prior annuloplasty. Trivial regurgitation ofthe mitral valve. Aortic Valve: Moderate aortic stenosis. Peak Velocity of 1.70 m/s. Mean gradient of 6.0mmHg. Valve area of 1.3 cm2. Aortic cusps appear mildly sclerotic. Mild aortic valveregurgitation. Tricuspid Valve: Normal appearance of the tricuspid valve. Estimated peak RVSP is 45 mmHg.Moderate tricuspid regurgitation. Pulmonic Valve: Normal appearance of the pulmonic valve. Moderate pulmonicregurgitation. Pericardium: Normal pericardium with no significant pericardial effusion. Left pleuraleffusion seen. Aorta: Normal aortic root. IVC: Dilated IVC without respiratory collapse consistent with elevated rightatrial pressure (>15 mmHg). CONCLUSIONS: Technically difficult study with poor image quality. Normal leftventricular size. Mild LVH. Left ventricular systolic function at the lower limit of normal.Diastolic dysfunction is present. Increased left heart filling pressures based onelevated E/E`. Ejection fraction is measured at 53 %. Global Longitudinal Strain is -15%. Annular region thickened with prior annuloplasty. Trivial MR. Aortic valve appears sclerotic. Moderate aortic stenosis. V max 1.70 m/s.MG 6.0 mmHg. Valve area of 1.3 cm2. Mild aortic valve regurgitation. Mild pulmonary hypertension. RVSP 45 mmHg. Moderate tricuspid and pulmonicregurgitation. Electronically Signed By: Jose Cruz Betancourt MD, [facility] 04/05/2025 3:07:39 PM CDT Rosa Goodson Rosalinda AUTOMOTIVE HARDWARE ENGINEER CV ECHO PROCEDURES Final Result * Screening Mammogram Bilateral W Lawson (06/13/2022 9:56 AM RETAIL GENERAL MANAGER) Anatomical Region Laterality Modality Breast Bilateral Mammography 06/13/2022 12:5 9 PM RETAIL GENERAL MANAGER Impressions 06/13/2022 12:59 PM RETAIL GENERAL MANAGER There is no mammographic evidence of malignancy. A 1 year screening mammogram is recommended. BI-RADS: 2 - Benign. The patient has been or will be contacted. The patient will be entered into a reminder system with a target due date of 1 year for her next mammogram. Electronically signed by: Prakash Rendon M.D. Narrative 06/13/2022 12:59 PM RETAIL GENERAL MANAGER EXAMINATION: SCREENING MAMMOGRAM BILATERAL W LAWSON ORDERING [...] (HCV) RNA PCR, quantitative (06/02/2019 11:44 AM RETAIL GENERAL MANAGER) HCV RNA qn Undetected Undetected IUnits/mL [facility] ([place]) Comment: Result in log IU/mL is Undetected. ADDITIONAL INFORMATION The quantification range of this assay is 15 to 100,000,000 IU/mL (1.18 log to 8.00 log IU/mL). Testing was performed using the lester HCV test ([employer] with the lester 6800 System. Test Performed by: [facility] [address] [place] [address] Blanket Winder Helper: Raheem Cornejo M.D. Ph.D.; CLIA# [id number] Blood specimen (specimen) 06/02/2019 11:44 AM RETAIL GENERAL MANAGER 06/02/2019 12:08 PM RETAIL GENERAL MANAGER Mer Szymanski MD LAB MICROBIOLOGY - [facility] ORDERABLES Final Result [facility] ([place]) 1 [facility] Department [place] [address] from Last 3 Months or Most Recently Relevant to Health Maintenance Insurance MEDICARE IDWI [facility] MEDICARE [facility] [place] [address] [facility] Member Subscriber Plan / Payer (Ef fective 2023-Present) Name:Yusuf Parish Relation to Subscriber:Self Name:Yusuf Parish Payer ID:[id number] (NA) Type:MEDICAID RISK OTHER Address: [address] [facility] Advance Directives For more information, please contact: [phone] Documents on File Type Date Recorded Patient Torch Brazer Expl anation ADVANCE DIRECTIVE 08/27/2021 9:10 AM Power of Mophead Sewer-Medical Power of Mophead Sewer 05/22/2021 2:02 PM ADVANCE DIRECTIVE 10/21/2018 3:46 [...] 9:41 AM 12/23/2017 2:[address] Patrol Pilot Relationship Specialty Start Date End Date Nati Garcia PA [address] [address] PCP - General Neurosurgery 10/14/24 Sung Do MD Consulting Physician Cardiology 10/16/18 Saul Marquez MD Surgeon Orthopedic Surgery 08/28/21
--- OUTSIDE RECORDS SUMMARY | 2025-05-12 20:48 | XMS_ITS | Encounter Summary ---
Author Organization [facility] Address [address] [place] [address] Phone Care Team Providers Care Trainmaster Name Role Phone Symone Juan David Fisher MD Unavailable Hector Rendon MD Unavailable Rohit Cardoso MD Unavailable Sung Do MD Unavailable [phone] Silvano Byrne MD Primary Care Provider Shawn Alves MD Unavailable Nati Garcia [facility] Primary Care Pro vider Reason for Visit * Reason Comments Medication Refill Encounter Details Date Type Department Care Team (Late st Contact Info) Description 10/19/2023 Refill [facility] [address] [place] [id number] Silvano Byrne MD [address] [place] [address] Medication Refill Social History Tobacco Use Types [...] 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 Not on file No [...] Dept 05/26/23 Office Visit Silvano Byrne MD [facility] [place] 11/18/22 Office Visit Silvano Byrne MD [facility] [place] Showing recent visits within past 365 days and meeting all other requirements Future Appointments Date Type Provider Dept 11/24/23 Appointment Lanie Sol, SKULL SPLITTER, BACK SEWER [facility] [place] Showing future appointments within next 90 days and meeting all other requirements documented in this encounter Plan of Treatment Upcoming Encounters Date Type Department Care Team (Late st Contact Info) Description 05/17/2025 10:30 AM TRACK LINER OPERATOR Office Visit [facility] - Primary Care - [address] [place] [address] Nati Garcia, PAC [address] [place] [address] 05/26/2025 2:00 PM TRACK LINER OPERATOR Office Visit [facility] - Primary Care - [address] [place] [address] Nati Garcia, PAC [address] [place] [address] 10/25/2025 11:00 AM CDT Office Visit [facility] Oncology Services [address] [place] [address] Hector Rendon MD [address] [place] [address] Discharge Disposition: Discharged to home or Selfcare 10/25/2025 11:30 AM CDT Clinical Support [facility] Oncology Services [address] [place] [address] Hector Rendon MD [address] [place] [address] Discharge Disposition: Discharged to home or Selfcare documented as of this encounter Goals Goal Patient Goal Type Associated Problems Recent Progress Patient-Stated? Author Healthy Lifestyle Healthy Lifestyle Carolyn Olivo, RN Note: Pace/increase activity documented as of this encounter Visit Diagnoses Not on filedocumented in this encounter Additional Health Concerns Assessment Noted Time PHQ-9 Depression Total Score: 0 04/06/20 21 10:00 AM CDT documented as of this encounter Care Teams Trainmaster Relationship Specialty Start Date End Date Silvano Byrne MD [address] [facility] [address] [place] [address] PCP - General Family Medicine 02/25/20 03/23/24 Nati Garcia PAC [address] [address] PCP - General Physician Kitchen Helper 03/24/24 Juan David Ashby MD Consulting Physician General Surgery 12/27/19 Hector Rendon MD [address] [place] [address] Consulting Physician Medical Oncology 12/27/19 Rohit Cardoso MD [address] [place] [address] Consulting Physician Radiation Oncology 12/27/19 Sung Do MD [address] [facility] [address] [place] [address] Consulting Physician Cardiovascular Disease - Cardiology 12/28/19 Shawn Alves MD #[address] [address] Consulting Physician Colon and Rectal Surgery 05/10/22 documented as of this encounter
--- OUTSIDE RECORDS SUMMARY | 2025-05-12 20:48 | XMS_ITS | Encounter Summary ---
Author Organization [facility] Address [address] [place] [address] Phone Care Team Providers Care Radar Technician Name Role Phone SymoneJuan David MD Unavailable Hector Rendon MD Unavailable [phone] Rohit Cardoso MD Unavailable Sung Do MD Unavailable [phone] Silvano Byrne MD Primary Care Provider Shawn Alves MD Unavailable Nati Garcia [facility] Primary Care Pro vider Reason for Visit * Reason Comments Medication Refill Encounter Details Date Type Department Care Team (Late st Contact Info) Description 07/09/2020 Refill [facility] [address] [place] [address] Silvano Byrne MD [address] [place] [address] Medication Refill Social History Tobacco Use Types [...] 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 No / Unsure 07/10/2020 1:19 PM DIRECTOR EPIDEMIOLOGY documented as of this encounter Miscellaneous Notes [...] 6 days ago New onset of headaches [facility] Medical [facility] - Family Medicine - Silvano Longo MD 1 month ago Nonischemic cardiomyopathy (HCC) [facility] - Silvano Longo MD 4 months ago Chronic combined systolic and diastolic congestive heart failure (HCC) [facility] - Silvano Longo MD Upcoming Appointments Future Appointments Today [facility], [facility] In 2 months Ankita Villafuerte, BRAND DIRECTOR, ENGINEERING TECHNICAL ANALYST [facility], [facility] In 2 months [facility] CC INFUSION CHR3 [facility], [facility] ROLLS MILL OPERATOR - Recent and Past Visits Recent Visits Date Type Provider Dept 07/04/20 Office Visit Silvano Byrne MD [facility] 05/29/20 Office Visit Silvano Byrne MD [facility] 02/25/20 Office Visit Silvano Byrne MD [facility] Showing recent visits within past 460 days with a meds authorizing provider and meeting all other requirements Future Appointments No visits were found meeting these conditions. Showing future appointments within next 90 days with a meds authorizing provider and meeting all other requirements Passed - Last BP in normal range BP Readings from Last 1 Encounters: 07/04/20 112/60 CTOR EPIDEMIOLOGY documented in this encounter Plan of Treatment Upcoming Encounters Date Type Department Care Team (Late st Contact Info) Description 05/17/2025 10:30 AM DIRECTOR EPIDEMIOLOGY Office Visit [facility] Primary Care - [address] [place] [address] Nati Garcia, DEEDEE [address] [place] [address] 05/26/2025 2:00 PM DIRECTOR EPIDEMIOLOGY Office Visit [facility] Primary Care - [address] [place] [phone] Nati Garcia, DEEDEE [address] [place] [address] 10/25/2025 11:00 AM CDT Office Visit [facility] [address] [place] [address] Hector Rendon MD [address] [place] [address] Discharge Disposition: Discharged to home or Selfcare 10/25/2025 11:30 AM CDT Clinical Support [facility] Oncology Services [address] [place] [phone] Hector Rendon MD [address] [place] [address] Discharge Disposition: Discharged to home or Selfcare documented as of this encounter Visit Diagnoses Not on filedocumented in this encounter Care Teams Radar Technician Relationship Specialty Start Date End Date Silvano Byrne MD [address] [address] PCP - General Family Medicine 02/25/20 03/23/24 Nati Garcia [facility] #[address] [address] PCP - General Physician Cigar Sorter 03/24/24 Juan David Ashby MD Consulting Physician General Surgery 12/27/19 Hector Rendon MD [address] [place] [address] Consulting Physician Medical Oncology 12/27/19 Rohit Cardoso MD [address] [place] [address] Consulting Physician Radiation Oncology 12/27/19 Sung Do MD [address] [facility] [address] [place] [address] Consulting Physician Cardiovascular Disease - Cardiology 12/28/19 Shawn Alves MD #[address] [address] Consulting Physician Colon and Rectal Surgery 05/10/22 documented as of this encounter
--- OUTSIDE RECORDS SUMMARY | 2025-05-12 20:48 | XMS_ITS | Encounter Summary ---
Author Organization [facility] Address [address] [place] [address] Phone Care Team Providers Care Medical Lab Assistant Name Role Phone Symone Juan David Fisher MD Unavailable Hector Rendon MD Unavailable [phone] Rohit Cardoso MD Unavailable [phone] Sung Do MD Unavailable Silvano Byrne MD Primary Care Provider Shawn Alves MD Unavailable Nati Garcia [facility] Primary Care Pro vider Reason for Visit * Reason Onset Date Comments Medication Refill 06/19/2020 Encounter Details Date Type Department Care Team (Late st Contact Info) Description 06/19/2020 Refill [facility] [address] [place] [address] Silvano Byrne MD [address] [place] [address] Medication Refill Social History Tobacco Use Types [...] 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 No / Unsure 06/20/2020 11:26 AM AMMUNITION STORAGE SUPERINTENDENT documented as of this encounter Miscellaneous Notes [...] Visits 3 weeks ago Nonischemic cardiomyopathy (HCC) [facility] - Family Medicine - Silvano Longo MD 3 months ago Chronic combined systolic and diastolic congestive heart failure (HCC) [facility] Medical [facility] Family Medicine - Silvano Longo MD Upcoming Appointments Future Appointments Today Hector Rendon MD [facility] On[facility] Services, [facility] In 1 week Rohit Cardoso MD [facility] Oncology Services, [facility] PHYSICIAN SPECIALIST - Recent and Past Visits Recent Visits Date Type Provider Dept 05/29/20 Office Visit Silvano Byrne MD [facility] 02/25/20 Office Visit Silvano Byrne MD [facility] [place] Showing recent visits within past 460 days with a meds authorizing provider and meeting all other requirements Future Appointments No visits were found meeting these conditions. Showing future appointments within next 90 days with a meds authorizing provider and meeting all other requirements Passed - Last BP in normal range BP Readings from Last 1 Encounters: 05/29/20 100/62 NITION STORAGE SUPERINTENDENT * Telephone Encounter - Donita Callejas - [...] scripts) 1 Pharmacy preference for this medication: [facility]/pharmacy #[id number] Outcome: []Medication pended, routed to surescripts []Medication refused []Informed caller of refills at pharmacy []Additional message to medication management RN []Verbal authorization for written order to pharmacy []Additional message to provider []Verified medication with pharmacy Donita Medication Management NITION STORAGE SUPERINTENDENT documented in this encounter Plan of Treatment Upcoming Encounters Date Type Department Care Team (Late st Contact Info) Description 05/17/2025 10:30 AM AMMUNITION STORAGE SUPERINTENDENT Office Visit [facility] - Primary Care - [address] [place] [address] Nati Garcia, [facility] [address] [place] [address] 05/26/2025 2:00 PM AMMUNITION STORAGE SUPERINTENDENT Office Visit [facility] - Primary Care - [address] [place] [address] Nati Garcia, DEEDEE [address] [place] [address] 10/25/2025 11:00 AM CDT Office Visit [facility] Oncology Services [address] [place] [address] Hector Rendon MD 0 [place] [address] Discharge Disposition: Discharged to home or Selfcare 10/25/2025 11:30 AM CDT Clinical Support [facility] Oncology Services [address] [place] [address] Hector Rendon MD [address] [place] [address] Discharge Disposition: Discharged to home or Selfcare documented as of this encounter Visit Diagnoses Not on filedocumented in this encounter Care Teams Medical Lab Assistant Relationship Specialty Start Date End Date Silvano Byrne MD [address] [facility] [address] [place] [address] PCP - General Family Medicine 02/25/20 03/23/24 Nati Garcia, DEEDEE [address] [address] PCP - General Physician Monitoring Tech 03/24/24 SymoneJuan David alonzo MD Consulting Physician General Surgery 12/27/19 Hector Rendon MD [address] [place] [address] Consulting Physician Medical Oncology 12/27/19 Rohit Cardoso MD [address] [place] [address] Consulting Physician Radiation Oncology 12/27/19 Sung Do MD [address] [address] Consulting Physician Cardiovascular Disease - Cardiology 12/28/19 Shawn Alves MD #[address] [address] Consulting Physician Colon and Rectal Surgery 05/10/22 documented as of this encounter
--- OUTSIDE RECORDS SUMMARY | 2025-05-12 20:48 | XMS_ITS | Encounter Summary ---
Author Organization [facility] Address [address] [place] [address] Phone Care Team Providers Care Wood Ski Maker Name Role Phone Symone Juan David Fisher MD Unavailable Hector Rendon MD Unavailable Rohit Cardoso MD Unavailable Sung Do MD Unavailable Silvano Byrne MD Primary Care Provider Shawn Alves MD Unavailable Nati Garcia [facility] Primary Care Pro vider Reason for Visit * Reason Comments Medication Refill Encounter Details Date Type Department Care Team (Late st Contact Info) Description 04/24/2023 Refill [facility] #[address] [place] [phone] Silvano Byrne MD [address] [place] [address] Medication Refill Social History Tobacco Use Types [...] 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 Not on file No [...] Dept 11/18/22 Office Visit Silvano Byrne MD [facility] 08/14/22 Office Visit Martin Wayne APRN, [facility] 04/30/22 Office Visit Silvano Byrne MD [facility] Showing recent visits within past 365 days and meeting all other requirements Future Appointments Date Type Provider Dept 05/26/23 Appointment Silvano Byrne MD [facility] Showing future appointments within next 90 days and meeting all other requirements documented in this encounter Plan of Treatment Upcoming Encounters Date Type Department Care Team (Late st Contact Info) Description 05/17/2025 10:30 AM WIRE WRAPPER MACHINE OPERATOR Office Visit [facility] [address] [place] [address] Nati Garcia, PAC [address] [place] [address] 05/26/2025 2:00 PM WIRE WRAPPER MACHINE OPERATOR Office Visit [facility] [address] [place] [address] Nati Garcia, PAC [address] [place] [address] 10/25/2025 11:00 AM CDT Office Visit [facility] Oncology Services [address] [place] [address] Hector Rendon MD 0 [place] [address] Discharge Disposition: Discharged to home or Selfcare 10/25/2025 11:30 AM CDT Clinical Support [facility] Oncology Services [address] [place] [address] Hector Rendon MD [address] [place] [address] Discharge Disposition: Discharged to home or Selfcare [...] documented as of this encounter Care Teams Wood Ski Maker Relationship Specialty Start Date End Date Silvano Byrne MD [address] [facility] [address] [place] [address] PCP - General Family Medicine 02/25/20 03/23/24 Nati Garcia PAC [address] [address] PCP - General Physician Siding Stapler 03/24/24 Juan David Ashby MD Consulting Physician General Surgery 12/27/19 Hector Rendon MD [address] [place] [address] Consulting Physician Medical Oncology 12/27/19 Rohit Cardoso MD [address] [place] [address] Consulting Physician Radiation Oncology 12/27/19 Sung Do MD [address] [facility] [address] [place] [address] Consulting Physician Cardiovascular Disease - Cardiology 12/28/19 Shawn Alves MD #[address] [address] Consulting Physician Colon and Rectal Surgery 05/10/22 documented as of this encounter
--- OUTSIDE RECORDS SUMMARY | 2025-05-12 20:48 | XMS_ITS | Encounter Summary ---
Author Organization [facility] Address [address] [place] [address] Phone Care Team Providers Care Regulatory Attorney Name Role Phone SymoneJuan David MD Unavailable Hector Rendon MD Unavailable [phone] Rohit Cardoso MD Unavailable Sung Do MD Unavailable Silvano Byrne MD Primary Care Provider [phone] Shawn Alves MD Unavailable Nati Garcia 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 Not on file Not on file No t on file documented as of this encounter Plan of Treatment Upcoming Encounters Date Type Department Care Team (Late st Contact Info) Description 05/17/2025 10:30 AM MAJOR ACCOUNT REPRESENTATIVE Office Visit [facility] [address] [place] [address] Nati Garcia, PAC [address] [place] [address] 05/26/2025 2:00 PM MAJOR ACCOUNT REPRESENTATIVE Office Visit [facility] [address] [place] [address] Nati Garcia, PAC [address] [place] [address] 10/25/2025 11:00 AM CDT Office Visit [facility] Oncology Services [address] [place] [address] Hector Rendon MD [address] [place] [address] Discharge Disposition: Discharged to home or Selfcare 10/25/2025 11:30 AM CDT Clinical Support [facility] Oncology Services [address] [place] [phone] Hector Rendon MD [address] [place] [address] Discharge Disposition: Discharged to home or Selfcare [...] documented as of this encounter Care Teams Regulatory Attorney Relationship Specialty Start Date End Date Silvano Byrne MD [address] [address] PCP - General Family Medicine 02/25/20 03/23/24 Nati Garcia PAC [address] [address] PCP - General Physician Ethylbenzene Oxidizer 03/24/24 Juan David Ashby MD Consulting Physician General Surgery 12/27/19 Hector Rendon MD [address] [place] [address] Consulting Physician Medical Oncology 12/27/19 Rohit Cardoso MD [address] [place] [address] Consulting Physician Radiation Oncology 12/27/19 Sung Do MD [address] [facility] [address] [place] [address] Consulting Physician Cardiovascular Disease - Cardiology 12/28/19 Shawn Alves MD [address]2 [facility] [address] [place] [address] Consulting Physician Colon and Rectal Surgery 05/10/22 documented as of this encounter
--- OUTSIDE RECORDS SUMMARY | 2025-05-12 20:48 | XMS_ITS | Encounter Summary ---
Author Organization [facility] Address [address] [place] [address] Care Team Providers Care Rod Welder Name Role Phone Jeremy Stinson MD Primary Care Provider [phone] Sung Do MD Unavailable Mer Szymanski MD Primary Care Provider Sung Do MD Primary Care Provider + Silvano Byrne MD Primary Care Provider [phone] Saul Marquez MD Unavailable [phone] Nati Garcia Primary Care Prov ider Encounter Details Date Type Department Care Team (Late st Contact Info) Description 10/20/2018 Telephone [facility] Cardiac Testing [address] [place] [address] Rowan Correa RN Social History Tobacco Use Types Packs/Day Years Used Date Smoking Tobacco: Never Smokeless Tobacco: Never Alcohol Use Standard Drinks/Week Comments No 0 (1 standard drink = 0.6 oz pur e alcohol) Comments No Sex and Gender Information Value Date Recorded Sex Assigned at Not on file Legal Sex Female 12:19 AM PRODUCTION LINE ASSEMBLER Gender Identity Not on file Sexual Orientation Not on file documented as of this encounter Functional Status * BP Location Answer Date of Assessment Author Right arm 10/20/2018 11:31 AM Taisha Alejandro MA * Question Answer Date of Assessment Author Skin Color Appropriate for ethnicity 10/21/2018 6:58 AM [facility] Rowan Correa RN Skin Condition/Temp Warm;Dry 10/21/2018 6:58 AM CD T Rowan Correa RN * BP Location Answer Date of Assessment Author Right arm 10/20/2018 11:31 AM Taisha Alejandro MA documented as of this encounter Plan of Treatment Not on file documented as of this encounter Visit Diagnoses Not on filedocumented in this encounter Care Teams Rod Welder Relationship Specialty Start Date End Date Jeremy Stinson MD [address] [place] [address] PCP - General 11/06/16 04/29/19 Mer Szymanski MD [address] [place] [address] PCP - General Family Medicine 04/30/19 03/28/20 Sung Do MD [address] [place] [address] PCP - General Cardiology 03/29/20 03/29/20 Silvano Byrne MD [address] [facility] [address] [address] PCP - General Family Medicine 03/30/20 10/13/24 Nati Garcia PA [address] [facility] [address] [address] PCP - General Neurosurgery 10/14/24 Sung Do MD [address] [place] [address] Consulting Physician Cardiology 10/16/18 Saul Marquez MD [address] [address] Surgeon Orthopedic Surgery 08/28/21 documented as of this encounter
--- OUTSIDE RECORDS SUMMARY | 2025-05-12 20:48 | XMS_ITS ---
Author Organization [facility] Address [address] [place] [address] Care Team Providers Care Ocean Forwarder Name Role Phone Sung Do MD Unavailable [phone] Saul Marquez MD Unavailable Nati Garcia Primary Care Prov ider Active Problems Problem Noted Date Diagnosed Date Cardiac pacemaker in situ 02/09/2025 Overview (02/09/2025): Medtronic Micra AV2 Leadless Pacemaker. Dx; CHB. DOI 12/09/2024-[place]. [facility] remote. Cardiac resynchronization th erapy pacemaker (REFRIGERATION INSTALLER-P) in place 03/19/2024 Aftercare following right hip joint replacement surgery 09/10/2021 Acute radiation dermatitis 03/30/2020 Adverse effect of radiation 03/30/2020 Borderline personality disorder 03/30/2020 Overview (03/30/2020): Her sister ROBI states that [...] total fan radiation, radiotherapy in 1975 at [facility] in the management of Hodgkin's disease. Records were unavailable. Right partial breast radiotherapy, 50.4 Gy in 28 fractions, from 01/10/2020 thru 02/16/2020. 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 She received radiation therapy at [place] with what from her description sounded like [...] (09/16/2018): Added automatically from request for surgery [id number] Dizziness 07/09/2018 H/O sinus bradycardia 04/16/2018 Pleural [...] Automatic Entry Manual Entr y Fluoro Time 14.402 minutes 0.202 minutes 14.2 minutes Air kerma at the reference point (Ka,r) 167.91 mGy 0 .91 mGy 167 mGy DAP 118.5 Gy-cm2 0 Gy-cm2 118.5 Gy-cm2 Resolved Problems Problem Noted Date Diagnosed Date Resolved Date Primary osteoarthritis of right hip 08/06/2021 09/10/2021 Status post biventricular pacemaker 10/16/2018 02/09/2025 Overview (10/28/2018): [employer] BIV Pacemaker. Dx; NICM, CHF, LBBB, CHB. DOI 10/15/2018-[place]. [facility] remote monitoring.
--- OUTSIDE RECORDS SUMMARY | 2025-05-12 20:49 | XMS_ITS | Encounter Summary ---
Author Organization [facility] Address [address] [place] [address] Phone Care Team Providers Care C Architect Name Role Phone SymoneJuan David MD Unavailable Hector Rendon MD Unavailable Rohit Cardoso MD Unavailable Sung Do MD Unavailable Silvano Byrne MD Primary Care Provider [phone] Shawn Alves MD Unavailable Nati Garcia [facility] Primary Care Pro vider Reason for Visit * Reason Comments Medication Refill Encounter Details Date Type Department Care Team (Late st Contact Info) Description 04/14/2022 Refill [facility] - Internal Medicine - [facility] Sta[facility] [address] [place] [address] Silvano Byrne MD [address] [place] [address] Medication Refill Social History Tobacco Use Types [...] 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 Not on file No [...] Dept 02/05/22 Office Visit Belinda Kelly APRN, CNP [facility] 10/09/21 Office Visit Silvano Byrne MD [facility] 06/25/21 Office Visit Silvano Byrne MD [facility] 04/23/21 Office Visit Belinda Kelly APRN, CNP [facility] Showing recent visits within past 365 days and meeting all other requirements Future Appointments Date Type Provider Dept 04/22/22 Appointment Silvano Byrne MD [facility] Showing future appointments within next 90 days and meeting all other requirements documented in this encounter Plan of Treatment Upcoming Encounters Date Type Department Care Team (Late st Contact Info) Description 05/17/2025 10:30 AM PHYSICIAN OFFICE NURSE Office Visit [facility] [address] [place] [phone] Nati Garcia, PAC [address] [place] [address] 05/26/2025 2:00 PM PHYSICIAN OFFICE NURSE Office Visit [facility] [address] [place] [id number] Nati Garcia, PAC [address] [place] [address] 10/25/2025 11:00 AM CDT Office Visit [facility] [address] [place] [phone] Hector Rendon MD [address] [place] [address] Discharge Disposition: Discharged to home or Selfcare 10/25/2025 11:30 AM CDT Clinical Support [facility] [address] [place] [phone] Hector Rendon MD [address] [place] [address] Discharge Disposition: Discharged to home or Selfcare [...] documented as of this encounter Care Teams C Architect Relationship Specialty Start Date End Date Silvano Byrne MD [address] [facility] [address] [place] [address] PCP - General Family Medicine 02/25/20 03/23/24 Nati Garcia PAC [address] [address] PCP - General Physician Financial Investment Adviser 03/24/24 Juan David Ashby MD Consulting Physician General Surgery 12/27/19 Hector Rendon MD [address] [place] [address] Consulting Physician Medical Oncology 12/27/19 Rohit Cardoso MD [address] [place] [address] Consulting Physician Radiation Oncology 12/27/19 Sung Do MD [address] [facility] [address] [place] [address] Consulting Physician Cardiovascular Disease - Cardiology 12/28/19 Shawn Alves MD [address] [address] Consulting Physician Colon and Rectal Surgery 05/10/22 documented as of this encounter
--- OUTSIDE RECORDS SUMMARY | 2025-05-12 20:49 | XMS_ITS | Clinical Summary ---
Author Organization [facility] Address [address] [facility] [address] [facility], [address] [address] Phone Care Team Providers Care Library Sales Consultant Name Role Phone Juan David Ashby MD Unavailable Hector Rendon MD Unavailable Rohit Cardoso MD Unavailable Sung Do MD Unavailable Shawn Alves MD Unavailable Nati Garcia PAC Primary Care Pro vider Allergies Active Allergy [...] (see Comments) High 11/01/2019 Light headed Medications furosemide (LASIX) 20 MG Tablet TAKE 1 TABLET BY MOUTH EVERY DAY IN THE MORNING 05/07/20 07 Active Cholecalcifero l (VITAMIN D-3 PO)Indications :Osteopenia of multiple sites Take by mouth. Active ProAir HFA 108 (90 Base) MCG/ACT Aerosol Solution INHALE 1-2 PUFFS BY MOUTH EVERY 6 HOURS NEEDED FOR WHEEZING 8.5 Inhaler 07/10/19 21 Active Denosumab (PROLIA) 60 MG/ML Solution Prefilled Syringe 60 mg by Subcutaneous route every 180 days. Active acetaminophen (TYLENOL) 325 MG Tablet Take 650 mg by mouth every 4 hours as needed for Mild or more severe pain or Fever. Active Multiple Vitamin (Multi-Vitamin ) Tablet Take 1 Tablet by mouth daily. Active Wixela Inhub 250-50 MCG/ACT AEROSOL POWDER, BREATH ACTIVATED take 1 Puff by inhalation 2 times daily. 09/03/19 25 Active letrozole (FEMARA) 2.5 MG TabletIndicati ons:Carcinoma of upper-outer quadrant of right breast in female, estrogen receptor positive TAKE 1 TABLET BY MOUTH EVERY DAY 90 Tablet 1 01/04/20 25 Active apixaban (Eliquis) 5 MG Tablet Take 5 mg by mouth 2 times daily. Active metoprolol tartrate (LOPRESSOR) 50 MG Tablet Take 50 mg by mouth 2 times daily. Active ferrous sulfate 325 (65 Fe) MG TabletIndicati ons:Iron Deficiency Anemia 1 tab by mouth once every other day Indications: Anemia From Inadequate Iron in the Body 48 Tablet 1 03/01/20 25 Active Mirtazapine (REMERON) 7.5 MG Tablet Take 1 Tablet by mouth nightly. 30 Tablet 2 04/26/20 25 Active levothyroxine (SYNTHROID) 50 MCG Tablet TAKE 1 TABLET BY MOUTH EVERY DAY 90 Tablet 1 05/04/20 25 Active levothyroxine (SYNTHROID) 50 MCG Tablet TAKE 1 TABLET BY MOUTH EVERY DAY 90 Tablet 1 09/09/19 25 025 Discontinued Active Problems Problem Noted Date Diagnosed Date Poor appetite 04/26/2025 Infected pacemaker 12/07/2024 Presence of cardiac pacemaker 03/19/2024 Overview (03/01/2025): Medtronic Micra AV2 Leadless Pacemaker. Dx; CHB. DOI 12/09/2024-[place], [place]. Carelink remote. Esophageal stenosis 01/05/2024 History of malignant neoplasm [...] total fan radiation, radiotherapy in 1975 at [facility] in the management of Hodgkin's disease. Records were unavailable. Right partial breast radiotherapy, 50.4 Gy in 28 fractions, from 01/10/2020 thru 02/16/2020. Personal history of Hodgkin lymphoma 12/08/2019 Overview (02/16/2020): Diagnosed in 1976 at the age of 16 years with Hodgkin's disease with a high right neck presentation, subtype in stage unknown. She received radiation therapy at [facility] with what from her description sounded like [...] from 12/28/2019:Stage IA(pT1b, pN0(sn), cM0, G2, ER+, IL+, HER2-, Oncotype DX score: 17) - Signed by Rohit Cardoso MD on 12/28/2019 Overview (02/16/2020): Pathological stage IA ER/IL positive, HER2 negative an Oncotype DX score [...] Congenital deformity of both hip joints 12/08/19 Osteopenia of multiple sites 12/08/2019 Chronic HFrEF [...] Encounters Date Type Department Care Team Description 05/04/2025 Telephone [facility] [address] [place] [phone] Nati Garcia, PAC Follow-up 05/04/2025 Refill [facility] [address] [place] [address] Nati Garcia, PAC Medication Refill 04/26/2025 11:30 AM CDT Clinical Support [facility] On[facility] [address] [place] [phone] Hector Rendon MD Carcinoma of upper-outer quadrant of right breast in female, estrogen receptor positive (Primary Dx); Age-related osteoporosis without current pathological fracture; Osteoarthritis of right hip, unspecified osteoarthritis type; Use of letrozole (Femara) Discharge Disposition: Discharged to home or Selfcare 04/26/2025 11:00 AM CDT Office Visit [facility] [address] [place] [phone] Hector Rendon MD Poor appetite (Primary Dx); Use of letrozole (Femara); Status post partial mastectomy of right breast; Abnormal finding of blood chemistry, unspecified Discharge Disposition: Discharged to home or Selfcare 04/26/2025 Travel 04/19/2025 Telephone [facility] - [place] [address] [place] [address] Nati Garcia, DEEDEE Medication Refill 04/11/2025 Telephone [facility] [address] [place] [phone] Nati Garcia, DEEDEE Advice Only; Letter for School/Work 04/11/2025 Telephone [facility] [address] [place] [address] Hector Rendon MD 03/30/2025 11:30 AM CDT Office Visit [facility] - [place] [address] [place] [phone] Nati Garcia, DEEDEE Essential hypertension (Primary Dx) Discharge Disposition: Discharged to home or Selfcare 03/30/2025 Travel 03/17/2025 9:00 AM CDT Home Care Visit [address] [address] Alisa Miranda, ROSCOE SN - OASIS DISCHARGE 03/11/2025 4:00 PM CDT Home Care Visit [address] [address] Alisa Miranda RN DISEASE MGT PHONE 03/09/2025 3:30 PM CDT Home Care Visit [address] [address] Alisa Miranda RN DISEASE MGT PHONE 03/04/2025 10:00 AM CDT Home Care Visit [address] [address] Alisa Miranda, ROSCOE SN - WOUND VISIT 03/02/2025 8:00 AM CDT Home Care Visit [address] [address] Alisa Miranda, ROSCOE SN - WOUND VISIT 03/01/2025 12:40 PM CDT Lab [facility] - [place] [address] [place] [address] Chronic heart failure with preserved ejection fraction (HCC) Discharge Disposition: Discharged to home or Selfcare 03/01/2025 11:00 AM CDT Office Visit [facility] - Primary [facility] - [place] [address] [place] [phone] Dione Chew APRN, SUPERVISOR DOG LICENSE OFFICER Weight loss (Primary Dx) Discharge Disposition: Discharged to home or Selfcare 03/01/2025 Results Follow-Up [facility] [place] [address] [place] [address] Dione Chew, MARQUITA, SUPERVISOR DOG LICENSE OFFICER CBC WITH AUTO DIFFERENTIAL 03/01/2025 Travel 02/25/2025 9:00 AM CDT Home Care Visit [address] [address] Alisa Miranda, ROSCOE SN - WOUND VISIT 02/23/2025 9:00 AM CDT Home Care Visit [address] [address] Alisa Miranda, ROSCOE SN - WOUND VISIT 02/21/2025 [facility] [address] [place] [address] Nati Garcia, PAC Medication Refill 02/18/2025 3:30 PM CDT Home Care Visit [address] [address] Kamala Terry LPN SN - WOUND VISIT 02/18/2025 [facility] [place] [address] [place] [address] Nati Garcia, PAC Medication Refill 02/18/2025 Home Care Visit [address] [address] Evelyn Sabillon OT OT - DISCHARGE SUMMARY 02/16/2025 9:00 AM CDT Home Care Visit [address] [address] Alisa Miranda, ROSCOE SN - WOUND VISIT 02/15/2025 3:30 PM CDT Home Care Visit [address] [address] Anastacia Bailon, PT PT - DISCIPLINE DISCHARGE 02/15/2025 12:00 PM CDT Home Care Visit [address] [address] Poppy Estrada, KALLIE OT - DISCIPLINE DISCHARGE 02/15/2025 10:00 AM CDT Home Care Visit [address] [address] Miri Allred, ANALYSIS CONSULTANT ANALYSIS CONSULTANT - HOME VISIT 02/15/2025 [facility] [place] [address] [place] [phone] Nati Garcia, PAC 02/15/2025 Home Care Visit [address] [address] Miri Allred, ANALYSIS CONSULTANT TELEPHONE ENCOUNTER 02/15/2025 Home Care Visit [address] [address] Poppy Estrada OTA CASE COMMUNICATION 02/11/2025 9:30 AM CDT Home Care Visit [address] [address] Poppy Estrada OTA OT - HOME VISIT 02/11/2025 9:00 AM CDT Home Care Visit [address] [address] Alisa Miranda, ROSCOE SN - WOUND VISIT 02/11/2025 Home Care Visit [address] [address] Poppy Estrada OTA CASE COMMUNICATION 02/10/2025 9:30 AM CDT Home Care Visit [address] [address] Mary Alice Montanez OPERATIONS TECH PT - HOME VISIT 02/09/2025 9:00 AM CDT Home Care Visit [address] [address] Alisa Miranda RN SN - WOUND VISIT from Last 3 Months Immunizations Immunization Administration [...] oz pur e alcohol) Occasionally on holidays. [facility] Utilities Answer Date Recorded In the past 12 months has [employer], [employer], oil, or water [employer] threatened to shut off services in your home? No 03/29/2024 Social Connection and Isolation Panel Answer Date Recorded In a typical week, how many times do you talk on the phone with family, friends, or neighbors? 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 on file No t on file Last Filed Vital Signs Vital Sign Reading Time Taken Comments Blood Pressure 121/70 04/26/2025 10:30 AM CDT Pulse 50 04/26/2025 10:30 AM CDT Temperature 36.5 C (97.7 F) 04/26/2025 10:30 AM CDT Respiratory Rate 16 04/26/2025 10:30 AM CDT Oxygen Saturation 96% 04/26/2025 10:30 AM CDT Inhaled Oxygen Concentration - - Weight 50.5 kg (111 lb 4.8 oz) 04/26/2025 10:30 AM CDT Height 162.6 cm (5' 4) 04/26/2025 10:30 AM CDT Body Mass Index 19.1 04/26/2025 10:30 AM CDT Plan of Treatment Upcoming Encounters Date Type Department Care Team (Late st Contact Info) Description 05/17/2025 10:30 AM REGULATORY AFFAIRS STRATEGY SPECIALIST Office Visit [facility] [place] [address] [place] [address] Nati Garcia, PAC [address] [place] [address] 05/26/2025 2:00 PM REGULATORY AFFAIRS STRATEGY SPECIALIST Office Visit [facility] [place] [address] [place] [address] Nati Garcia, PAC [address] [place] [address] 10/25/2025 11:00 AM CDT Office Visit [facility] Oncology Services [address] [place] [phone] Hector Rendon MD [address] [place] [address] Discharge Disposition: Discharged to home or Selfcare 10/25/2025 11:30 AM CDT Clinical Support [facility] On[facility] Services [address] [place] [phone] Hector Rendon MD [address] [place] [address] Discharge Disposition: Discharged to home or Selfcare Health Maintenance Due Date Last Done Comments Medicare Initial AWV [id number] 02/04/2005 Cologuard 2006 Respiratory Syncytial Virus (RSV) Immunization (Adult) (1 - Risk 50-74 years 1-dose series) 2011 Pneumococcal Immunization (50+ years) (3 of 3 - PCV20 or PCV21) 02/24/2025 02/25/2020, 06/20/2015 Mammogram 07/09/2025 07/09/2024, 09/2023, 06/13/2022, Additional history exists Immunochemical Fecal Occult Blood 12/21/2025 12/21/2024 Pap Smear 12/22/2026 12/23/2023, 01/28/2018 Colonoscopy 06/27/2027 06/27/2022, 06/07, 06/27/2022 Colorectal Cancer Screening 06/27/2027 Cervical Cancer Screening (CCS) 12/22/2028 HPV/Cotest 12/22/2028 12/23/2023, 01/28/2018 Td Immunization Every 10 Years (Adults With 1 Tdap) 02/28/2030 02/29/2020 Hepatitis C Virus (HCV) Screening Completed 06/02/2019 Pneumococcal Immunization Combined Discontinued 02/25/2020, 06/20/2015 DTaP/Tdap/Td Immunization Discontinued 02/29/2020, Influenza Immunization Discontinued 02/29/2020 SARS-COV-2 Immunization Discontinued 09/27/2020, 09/05 Zoster Immunization Completed 07/02/2023, Mammogram Unilateral Discontinued 07/09/2024, 07/09/2023, 06/13/2022, Additional history exists Hepatitis B Immunization Aged Out No longer eligible based on patient's age to complete this topic Human Papillomavirus (HPV) Immunization Aged Out No longer eligible based on patient's age to complete this topic Meningococcal Immunization (ACWY) Aged Out No longer eligible based on patient's age to complete this topic Rotavirus Immunization Aged Out No lo nger eligible based on patient's age to complete this topic Goals Goal Patient Goal Type Associated Problems Recent Progress Patient-Stated? Author Healthy Lifestyle Healthy Lifestyle Carloyn Olivo, RN Note: Pace/increase activity Procedures Procedure Name Priority Date/Time Associated Diagnosis Comments CMP (COMPREHENSIVE METABOLIC PANEL) Routine 04/14/2025 12:00 AM CDT Osteopenia of multiple sites CBC WITH AUTO DIFFERENTIAL Routine 03/01/2025 11:19 AM CDT Chronic heart failure with preserved ejection fraction (HCC) COMPLETE BLOOD COUNT (CBC) WITH DIFF Routine 03/01/2025 11:19 AM CDT Chronic heart failure with preserved ejection fraction (HCC) KEILY SCREENING BILATERAL DIGITAL W CAD W BETHANY Routine 07/09/2024 11:45 AM REGULATORY AFFAIRS STRATEGY SPECIALIST Carcinoma of upper-outer quadrant of right breast in female, estrogen receptor positive (HCC) Encounter for screening mammogram for malignant neoplasm of breast HUMAN PAPILLOMA VIRUS (HPV) Routine 12/23/2023 3:33 PM CDT Encounter for well woman exam with routine gynecological exam PATHOLOGY CYTOLOGY PLASTERER STUCCO Routine 12/23/2023 3:33 PM CDT Encounter for well woman exam with routine gynecological exam GI IMAGING - COLONOSCOPY Routine 06/27/2022 10:23 AM REGULATORY AFFAIRS STRATEGY SPECIALIST from Last 3 Months or Most Recently Relevant to Health Maintenance Results * CMP (COMPREHENSIVE METABOLIC PANEL) (04/14/2025 12:00 AM CDT) Blood Hector Rendon MD CHEMISTRY ORDERABLES Fin al Result SCAN * (ABNORMAL) CBC WITH AUTO DIFFERENTIAL (03/01/2025 11:19 AM CDT) WBC 8.42 4.00 - 12.00 10(3)/mcL 03/01/2025 12:[address] [facility] RBC 5.92(H) 3.80 - 5.30 10(6)/mcL 03/01/2025 12:[address] [facility] HEMOGLOBIN (HGB) 15.1 12.0 - 15.8 g/dL 03/01/2025 12:[address] HEMATOCRIT (HCT) 49.6(H) 36.0 - 47.0 % 03/01/2025 12:[address] MCV 83.8 82.0 - 96.0 fL 03/01/2025 12:[address] [facility] MCH 25.5(L) 26.0 - 34.0 pg 03/01/2025 12:[address] [facility] MCHC 30.4(L) 31.0 - 36.0 g/dL 03/01/2025 12:[address] [facility] PLATELET COUNT 233 140 - 440 10(3)/[facility] 03/01/2025 12:26 PM CDT [facility] RDW 16.0(H) 11.8 - 15.5 % 03/01/2025 12:[address] [facility] MPV 12.8(H) 9.7 - 12.4 fL 03/01/2025 12:[address] [facility] NEUTROPHILS 75.8(H) 47.0 - 73.0 % 03/01/2025 12:[address] [facility] LYMPHOCYTES 12.5(L) 18.0 - 42.0 % 03/01/2025 12:[address] [facility] MONOCYTES 9.1 4.0 - 12.0 % 03/01/2025 12:[address] [facility] EOSINOPHILS 1.3 0.0 - 5.0 % 03/01/2025 12:[address] [facility] BASOPHILS 1.1(H) 0.0 - 1.0 % 03/01/2025 12:[address] [facility] IMMATURE GRANULOCYTE 0.2 0.0 - 0.4 % 03/01/2025 12:[address] [facility] ABSOLUTE NEUTROPHILS 6.38 1.60 - 7.70 10(3)/[facility] 03/01/2025 12:[address] [facility] ABSOLUTE LYMPHOCYTES 1.05(L) 1.30 - 3.20 10(3)/[facility] 03/01/2025 12:[address] [facility] ABSOLUTE MONOCYTES 0.77 0.20 - 1.00 10(3)/[facility] 03/01/2025 12:[address] [facility] ABSOLUTE EOSINOPHIL 0.11 0.00 - 0.40 10(3)/[facility] 03/01/2025 12:[address] [facility] ABSOLUTE BASOPHILS 0.09 0.00 - 0.10 10(3)/[facility] 03/01/2025 12:[address] [facility] ABSOLUTE IMMATURE GRANULOCYTE 0.02 0.00 - 0.03 10 (3) mcL. 03/01/2025 12:[address] [facility] NRBC PER 100 WBC 0 03/01/20 12:[address] [facility] Blood Venipuncture / Unknown 03/01/2025 11:19 AM CDT 03/01/2025 11:19 AM CDT us Dione Chew CAPITAL MARKETS SPECIALIST, SUPERVISOR DOG LICENSE OFFICER HEMATOLOGY ORDERABLES Bonnie l Result [facility] [place] [address] * KEILY SCREENING BILATERAL DIGITAL W CAD W BETHANY (07/09/2024 11:45 AM REGULATORY AFFAIRS STRATEGY SPECIALIST) Anatomical Region Laterality Modality breast Bilateral Mammography 07/09/2024 10:5 3 AM REGULATORY AFFAIRS STRATEGY SPECIALIST Narrative 07/10/2024 7:17 AM REGULATORY AFFAIRS STRATEGY SPECIALIST - KEILY SCREENING BILATERAL DIGITAL W CAD [...] Comparison is made to exams dated: 07/09/2023 [facility], 06/13/2022, and 06/05/2021 [facility]. BREAST TISSUE:The breasts are heterogeneously dense, which [...] next screening exam. Electronically signed by: Damaris bang/alexis:07/09/2024 17:02:14 Airframe And Powerplant Mechanic(s): RT Alexus(R)(M), [facility] letter sent: Normal Exam Reading location: [facility] Mammogram BI-RADS: Category 2: Benign Procedure Note [...] Comparison is made to exams dated: 07/09/2023 [facility], 06/13/2022, and 06/05/2021 [facility]. BREAST TISSUE:The breasts are heterogeneously dense, which [...] next screening exam. Electronically signed by: Damaris bang/alexis:07/09/2024 17:02:14 Airframe And Powerplant Mechanic(s): Rosa Sweeney RT(R)(M), [facility] letter sent: Normal Exam Reading location: [facility] Mammogram BI-RADS: Category 2: Benign [facility] ORDERABLES Bonnie l Result * PATHOLOGY CYTOLOGY PLASTERER STUCCO (12/23/2023 3:33 PM CDT) SPECIMEN ADEQUACY A scant cellular component is noted. Endocervical/transf ormation zone component is present. 01/05/2024 2:13 PM CDT [facility] DESCRIPTIVE DIAGNOSIS NEGATIVE FOR INTRAEPITHELIAL LESIONS OR MALIGNANCY. 01/05/2024 2:13 PM CDT [facility] at 1413 CDT Automated Examination Analysis of this sample has been assisted by an automated imaging and review system ([employer], [employer], [place], [place]). This case is further evaluated and finalized by a meringuer and/or pathologist. 01/05/2024 2:13 PM CDT [facility] Disclaimer The PAP smear is a [...] recommended every three years for women 21-29, Co-Testing, a PAP test in conjunction with an HPV (Human Papillomavirus) test for women ages 30-65, and no PAP or HPV testing for women under the age of 21 or older than 65 unless clinically indicated. 01/05/2024 2:13 PM CDT [facility] Case Report Gynecologic Cytology Report Case: [id number] Authorizing Provider: Lanie Sol APRN, CNP Collected: 12/23/2023 03:33 PM Ordering Location: [facility] Received: 12/23/2023 03:33 PM Medicine [facility] First Screen: Anneliese Miller Specimen: TP Screen, Cervix/Endocervix 01/05/2024 2:13 PM CDT [facility] Other CERVIX UTERI STRUCTURE / Unknown Non-Phlebotomy Collection / Unknown 12/23/2023 3:33 PM CDT 12/23/2023 3:33 PM CDT us Lanie Sol APRN, CNP PATHOLOGY/CYTOLOGY ORDER JOHN Final Result [facility] [address] [place] [address], * HUMAN PAPILLOMA VIRUS (HPV) (12/23/2023 3:33 PM CDT) HPV TYPE 16 NEGATIVE NEGATIVE 12/24/2023 2:11 PM CDT [facility] Comment: A negative high-risk HPV result [...] 18 NEGATIVE NEGATIVE 12/24/2023 2:11 PM CDT [facility] Comment: A negative high-risk HPV result [...] PCR NEGATIVE NEGATIVE 12/24/2023 2:11 PM CDT [facility] Comment: The following Other High Risk [...] OR DIAGNOSTIC SCREENING 12/24/2023 2:11 PM CDT [facility] Other Non-Phlebotomy Collection / Unknown 12/23/2023 3:33 PM CDT 12/23/2023 3:33 PM CDT Narrative [facility] - 12/24/2023 2:11 PM CDT Performed by Real-Time Polymerase Chain Reaction (PCR) on the [employer] Ar[employer] 4800. This assay has been validated for use with post-aliquot samples from the [employer] processor. us Lanie Sol APRN, [facility] SEND OUTS Final Re sult [facility] [address] [place] [address], [facility] [address] [place] [address] * GI IMAGING - COLONOSCOPY (06/27/2022 10:23 AM REGULATORY AFFAIRS STRATEGY SPECIALIST) Shawn Alves MD IM DIAGNOSTIC ORDERABLES Final Result from Last 3 Months or Most Recently Relevant to Health Maintenance Insurance MEDICARE C GRUBBS Advance Directives Documents on File Type Date Recorded Patient Speedometer Inspector Expl anation Power of Handbag Framer for Health Care 01/26/2025 3:50 PM POA HC 10/09/2018 Power of Handbag Framer for Health Care 11/11/2019 6:43 AM POA * Full Code (Latest Code Status on File) Date Activated Date Inactivated Comments 02/02/2025 2:25 PM * No CPR-Selective Treatment Date Activated Date Inactivated Comments 01/26/2025 2:54 PM 02/02/2025 2:25 PM Care Teams Library Sales Consultant Relationship Specialty Start Date End Date Nati Garcia PAC [address] [address] PCP - General Physician Audit Associate 03/24/24 Juan David Ashby MD Consulting Physician General Surgery 12/27/19 Hector Rendon MD [address] [place] [address] Consulting Physician Medical Oncology 12/27/19 Rohit Cardoso MD [address] [place] [address] Consulting Physician Radiation Oncology 12/27/19 Sung Do MD [address] [facility] [address] [place] [address] Consulting Physician Cardiovascular Disease - Cardiology 12/28/19 Shawn Alves MD [address] [facility] [address] [place] [address] Consulting Physician Colon and Rectal Surgery 05/10/22
--- OUTSIDE RECORDS SUMMARY | 2025-05-12 20:49 | XMS_ITS | Encounter Summary ---
Author Organization [facility] Address [address] [place] [address] Phone Care Team Providers Care Stock Grader Name Role Phone SymoneJuan aDvid MD Unavailable Hector Rendon MD Unavailable Rohit Cardoso MD Unavailable [phone] Sung Do MD Unavailable Silvano Byrne MD Primary Care Provider [phone] Shawn Alves MD Unavailable Nati Garcia [facility] Primary Care Pro vider Reason for Visit * Reason Comments Medication Refill Encounter Details Date Type Department Care Team (Late st Contact Info) Description 02/08/2021 Refill [facility] - [place] Guido Staples [address] [place] [address] Silvano Byrne MD [address] [place] [address] Medication Refill Social History Tobacco Use Types [...] 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 Showing future appointments within next 90 days and meeting all other requirements documented in this encounter Plan of Treatment Upcoming Encounters Date Type Department Care Team (Late st Contact Info) Description 05/17/2025 10:30 AM TILE LAYER DRAINAGE Office Visit [facility] [place] [address] [place] [address] Nati Garcia, PAC [address] [place] [address] 05/26/2025 2:00 PM TILE LAYER DRAINAGE Office Visit [facility] [address] [address] [place] [phone] Nati Garcia, DEEDEE [address] [place] [address] 10/25/2025 11:00 AM CDT Office Visit [facility] [address] [place] [phone] Hector Rendon MD [address] [place] [address] Discharge Disposition: Discharged to home or Selfcare 10/25/2025 11:30 AM CDT Clinical Support [facility] [address] [place] [phone] Hector Rendon MD [address] [place] [address] Discharge Disposition: Discharged to home or Selfcare documented as of this encounter Visit Diagnoses Not on filedocumented in this encounter Care Teams Stock Grader Relationship Specialty Start Date End Date Silvano Byrne MD [address] [address] PCP - General Family Medicine 02/25/20 03/23/24 Nati Garcia, PAC [address] [address] PCP - General Physician Service Parts Coordinator 03/24/24 Juan David Ashby MD Consulting Physician General Surgery 12/27/19 Hector Rendon MD [address] [place] [address] Consulting Physician Medical Oncology 12/27/19 Rohit Cardoso MD [address] [place] [address] Consulting Physician Radiation Oncology 12/27/19 Sung Do MD [address] [address] Consulting Physician Cardiovascular Disease - Cardiology 12/28/19 Shawn Alves MD [address] [facility] [address] [place] [address] Consulting Physician Colon and Rectal Surgery 05/10/22 documented as of this encounter
--- OUTSIDE RECORDS SUMMARY | 2025-05-12 20:49 | XMS_ITS | Encounter Summary ---
Author Organization [facility] Address [address] [place] [address] Phone Care Team Providers Care Mechanical Service Technician Name Role Phone Symone Juan David Fisher MD Unavailable Hector Rendon MD Unavailable [phone] Rohit Cardoso MD Unavailable Sung Do MD Unavailable Silvano Byrne MD Primary Care Provider Shawn Alves MD Unavailable Nati Garcia [facility] Primary Care Pro vider Reason for Visit * Reason Comments Medication Refill Encounter Details Date Type Department Care Team (Late st Contact Info) Description 04/04/2022 Refill [facility] [address] [place] [phone] Silvano Byrne MD [address] [place] [address] Medication Refill Social History Tobacco Use Types [...] 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 on 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 No [...] Dept 02/05/22 Office Visit Belinda Kelly APRN, [facility] [place] 10/09/21 Office Visit Silvano Byrne MD [facility] 06/25/21 Office Visit Silvano Byrne MD [facility] 04/23/21 Office Visit Belinda Kelly APRN, [place] 04/06/21 Office Visit Silvano Byrne MD [facility] Showing recent visits within past 365 days and meeting all other requirements Future Appointments Date Type Provider Dept 04/22/22 Appointment Silvano Byrne MD [facility] Showing future appointments within next 90 days and meeting all other requirements documented in this encounter Plan of Treatment Upcoming Encounters Date Type Department Care Team (Late st Contact Info) Description 05/17/2025 10:30 AM JUNIOR WEB DEVELOPER Office Visit [facility] [place] [address] [place] [address] Nati Garcia, DEEDEE [address] [place] [address] 05/26/2025 2:00 PM JUNIOR WEB DEVELOPER Office Visit [facility] [address] [place] [address] Nati Garcia, PAC [address] [place] [address] 10/25/2025 11:00 AM CDT Office Visit [facility] [address] [place] [address] Hector Rendon MD [address] [place] [address] Discharge Disposition: Discharged to home or Selfcare 10/25/2025 11:30 AM CDT Clinical Support [facility] [address] [place] [phone] Hector Rendon MD [address] [place] [address] Discharge Disposition: Discharged to home or Selfcare [...] documented as of this encounter Care Teams Mechanical Service Technician Relationship Specialty Start Date End Date Silvano Byrne MD [address] [facility] [address] [place] [address] PCP - General Family Medicine 02/25/20 03/23/24 Nati Garcia PAC [address] [address] PCP - General Physician Senior Lead Developer 03/24/24 Juan David Ashby MD Consulting Physician General Surgery 12/27/19 Hector Rendon MD [address] [place] [address] Consulting Physician Medical Oncology 12/27/19 Rohit Cardoso MD [address] [place] [address] Consulting Physician Radiation Oncology 12/27/19 Sung Do MD [address] [facility] [address] [place] [address] Consulting Physician Cardiovascular Disease - Cardiology 12/28/19 Shawn Alves MD #[address] [address] Consulting Physician Colon and Rectal Surgery 05/10/22 documented as of this encounter
--- OUTSIDE RECORDS SUMMARY | 2025-05-12 20:49 | XMS_ITS ---
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 Dx; CHB. DOI 12/09/2024-[place], [place]. [facility] remote. Esophageal stenosis 01/05/2024 History [...] total fan radiation, radiotherapy in 1975 at [facility] in the management of Hodgkin's disease. Records were unavailable. Right partial breast radiotherapy, 50.4 Gy in 28 fractions, from 01/10/2020 thru 02/16/2020. Personal history of Hodgkin lymphoma 12/08/2019 Overview (02/16/2020): Diagnosed in 1976 at the age of 16 years with Hodgkin's disease with a high right neck presentation, subtype in stage unknown. She received radiation therapy at [place] with what from her description sounded like [...] from 12/28/2019:Stage IA(pT1b, pN0(sn), cM0, G2, ER+, DC+, HER2-, Oncotype DX score: 17) - Signed by Rohit Cardoso MD on 12/28/2019 Overview (02/16/2020): Pathological stage IA ER/DC positive, HER2 negative an Oncotype DX score [...] of right breast in female, estrogen receptor positiveAge-related osteoporosis without current pathological fractureOsteoarthritis of right hip, unspecified osteoarthritis typeUse of letrozole (Femara) Treatment Medications Current Day (Day 1 , Cycle 4 - Planned for 04/26/2025) Next Day (Day 1, Cycle 5 - Planned for 07/22/2025) No medications scheduled. No medications schedul ed. [...]
--- OUTSIDE RECORDS SUMMARY | 2025-05-12 20:49 | XMS_ITS | Encounter Summary ---
Author Organization [facility] Address [address] [place] [address] Phone Care Team Providers Care Label Stamper Name Role Phone Symone Juan David Fisher MD Unavailable Hector Rendon MD Unavailable Rohit Cardoso MD Unavailable [phone] Sung Do MD Unavailable Silvano Byrne MD Primary Care Provider [phone] Shawn Alves MD Unavailable Nati Garcia [facility] Primary Care Pro vider Reason for Visit * Reason Comments Medication Refill Encounter Details Date Type Department Care Team (Late st Contact Info) Description 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 No [...] st Contact Info) Description 05/17/2025 10:30 AM WASTE BALER Office Visit [facility] [address] [place] [address] Nati Garcia, DEEDEE [address] [place] [address] 05/26/2025 2:00 PM WASTE BALER Office Visit [facility] - [address] [place] [address] Nati Garcia, DEEDEE [address] [place] [address] 10/25/2025 11:00 AM CDT Office Visit [facility] [address] [place] [phone] Hector Rendon MD [address] [place], [place] [phone] Discharge Disposition: Discharged to home or Selfcare 10/25/2025 11:30 AM CDT Clinical Support [facility] [address] [place] [address] Hector Rendon MD [address] [place], [place] [phone] Discharge Disposition: Discharged to home or Selfcare [...] documented as of this encounter Care Teams Label Stamper Relationship Specialty Start Date End Date Silvano Byrne MD [address] [address] PCP - General Family Medicine 02/25/20 03/23/24 Nati Garcia PAC [address] [address] PCP - General Physician Clearing House Clerk 03/24/24 Juan David Ashby MD Consulting Physician General Surgery 12/27/19 Hector Rendon MD [address] [place] [address] Consulting Physician Medical Oncology 12/27/19 Rohit Cardoso MD [address] [place] [address] Consulting Physician Radiation Oncology 12/27/19 Sung Do MD [address] [address] Consulting Physician Cardiovascular Disease - Cardiology 12/28/19 Shawn Alves MD [address] [address] Consulting Physician Colon and Rectal Surgery 05/10/22 documented as of this encounter
--- OUTSIDE RECORDS SUMMARY | 2025-05-12 20:49 | XMS_ITS | Data Portability ---
Author Organization [place] [facility], Main Office Address [address] [place] [id number] Care Team Providers Care Negative Developer Name Role Phone [facility] [place] [place] Primary Care Provider MATTHEW MURO Referring Provider TYSON FERRARA Referring Provider Assessment Encounter Date Assessment Date Assessment LastModified by Organization Details LastModified Time 09/11/2021 09/11/2021 labs 09/12 ultrasound results reviewed Reviewed case with nursing and therapy [email or web address] Not available 09/18/2021 16:57:10 09/13/2021 09/13/2021 labs reviewed Urged patient to wear compression hose as she is not wearing them today Reviewed case with nursing and therapy Not available 09/18/2021 17:01:56 09/18/2021 09/18/2021 labs reviewed edema improving Reviewed case with nursing and therapy Not available 09/18/2021 17:06:15 09/21/2021 09/21/2021 D/C 2 tab option for PRN Speed so pt does not exceed APAP limit. [...] for up to 7 days after discharge. [email or web address] Not available 10/06/2021 08:24:31 Plan of Treatment [...] By Organization Details Last Modified Time 09/11/2021 [id number] I spent 30 minutes providing care to the patient today. More than 50% of that time was spent in discussing the expected course of the disease, discussing prognosis, coordinating care and counseling of the patient/family. [email or web address] Not available 09/18/2021 16:57:07 09/13/2021 [id number] I spent 30 minutes providing care to the patient today. More than 50% of that time was spent in discussing the expected course of the disease, discussing prognosis, coordinating care and counseling of the patient/family. [email or web address] Not available 09/18/2021 17:02:37 09/18/2021 [id number] I spent 25 minutes providing care to the patient today. More than 50% of that time was spent in discussing the expected course of the disease, discussing prognosis, coordinating care and counseling of the patient/family. [email or web address] Not available 09/18/2021 17:07:00 09/21/2021 [id number] I spent 26 minutes providing care to the patient today. More than 50% of that time was spent in discussing the expected course of the disease, discussing prognosis, coordinating care and counseling of the patient/family. Not available 09/22/2021 13:12:51 09/25/2021 [id number] I spent 35 minutes providing care to the patient today. More than 50% of that time was spent in discussing the expected course of the disease, discussing prognosis, coordinating care and counseling of the patient/family. [email or web address] Not available 10/06/2021 08:24:37 Reason for Referral None Reported. Results Created Date Observation Date Name Description Value Unit Range Abnormal Flag Note LastModifiedBy Organization Detail LastModifiedTime 09/19/19 22 US, duple x, venou s, extre mity, unila teral No observ ation record ed. [email or web address] Not Available 2021 16:54:31 Result Notes None recorded. Problems Name Problem SNOMED Code Status Onset Date Resolution Date Notes Provider Name and Address Organization Details Recorded Time Constipatio n 64070733 Active 2021 Tommie [place]iano, [place] - [facility] 2 09:57:59 Postoperati ve pain 946345841 Active 2021 Tommie [place] [facility] 2 00:04:47 Osteoarthri tis of right hip joint 3132354344122 07 Active 2021 Tommie Pined[place] [facility] 2 00:04:51 Essential hypertensio n 65486707 Active 2021 Tommie Pined[place] [facility] 2 00:05:00 Asthma 712564366 Active 2021 Tommie Pined[place] [facility] 2 00:05:02 Anemia 499765307 Active 2021 Tommie Pined[place] [facility] 2 00:05:06 Hypothyroid ism 62912721 Active 2021 Tommie Pined[place] [facility] 2 00:05:14 History of malignant neoplasm of breast 672245143 Active 2021 Tommie Pined[place] [facility] 2 00:05:15 Swelling of lower leg 715171722 Active 2021 Tommie Pined[place] [facility] 2 08:23:32 Problem Notes None recorded. Procedures Surgical History Date Name Laterality Status Provider Name and Address Organization Details Recorded Time repair of hip completed [place]acely Li [place] [facility] 08/28/2021 17:08:23 Imaging Results None recorded. Procedure Notes None recorded. Medical Equipment None Reported. Allergies Allergen ID Allergen Name Allergen Category Reaction Reaction Severity Criticality Documentation Date Start Date Code Code System Note Provider Name and Address Organization Details Recorded Time 49352 amitripty line medicatio n Not available Not available Not available 08/28/2021 704 RxNorm Aracely Li [place] [facility] 2 20:07:36 89480 cyclobenz aprine medicatio n Not available Not available Not available 08/28/2021 33499 RxNorm [place]acely Li [place] [facility] 2 20:08:01 53392 diclofena c Not available Not available Not available Not available 08/28/2021 3355 RxNorm Aracely Li [place] [facility] 2 20:08:06 21956 levofloxa milena medicatio n Not available Not available Not available 08/28/2021 15237 RxNorm Aracely Li [place] [facility] 2 20:08:13 43182 metaxalon e medicatio n Not available Not available Not available 08/28/2021 21121 RxNorm Aracely Li [place] [facility] 2 20:08:20 45165 misoprost ol medicatio n Not available Not available Not available 08/28/2021 11186 RxNorm [place] [facility] 2 20:08:28 71608 naproxen medicatio n Not available Not available Not available 08/28/2021 7258 RxNorm Aracely Li [place] [facility] 2 20:08:37 43114 orphenadr ine Not available Not available Not available Not available 08/28/2021 7715 RxNorm Ar[place] Li [place] [facility] 2 20:08:44 08283 rofecoxib medicatio n Not available Not available Not available 08/28/2021 16097 8 RxNorm Ar[place] Li [place] [facility] 2 20:08:55 54492 tramadol medicatio n Not available Not available Not available 08/28/2021 67712 RxNorm Aracely Bryan [place] [facility] 2 20:09:00 Medications Name Sig Start Date Stop Date [...] Pulse oximetry Respiratory rate Body temperature Systolic And Diastolic Provider Name and Address Organization Details Last Updated DateTime 2 160.02 cm 23.7 kg/m2 13408.9 4 g 69 /min 98 % 98 % 24 /min 98 [degF] 126/63 mm[Hg] [facility] 2 11:32:28 Date Recorded Body height Body mass index (BMI) Body weight Heart rate Oxygen saturation Oxygen saturation in Arterial blood by Pulse oximetry Respiratory rate Body temperature Systolic And Diastolic Provider Name and Address Organization Details Last Updated DateTime 2 160.02 cm 24.1 kg/m2 12971.6 4 g 78 /min 96 % 96 % 20 /min 97.2 [degF] 123/63 mm[Hg] Tommie Mejiaer [facility] 2 16:58:35 Date Recorded Body height Heart rate Oxygen saturation Oxygen saturation in Arterial blood by Pulse oximetry Respiratory rate Body temperature Systolic And Diastolic Provider Name and Address Organization Details Last Updated DateTime 2 160.02 cm 93 /min 96 % 96 % 18 /min 97.6 [degF] 118/66 mm[Hg] Tommie Mejiaer [facility] 2 17:03:41 Date Recorded Body height Body mass index (BMI) Body weight Heart rate Oxygen saturation Oxygen saturation in Arterial blood by Pulse oximetry Respiratory rate Body temperature Systolic And Diastolic Provider Name and Address Organization Details Last Updated DateTime 2 160.02 cm 23 kg/m2 41559.0 1 g 86 /min 96 % 96 % 18 /min 97.5 [degF] 123/72 mm[Hg] Jaye Ma, BUTCH [address] [place], [address] [place] [address] 2 11:02:22 Date Recorded Body height Heart rate Oxygen saturation Oxygen saturation in Arterial blood by Pulse oximetry Respiratory rate Body temperature Systolic And Diastolic Provider Name and Address Organization Details Last Updated DateTime 2 160.02 cm 80 /min 97 % 97 % 18 /min 97.5 [degF] 112/82 mm[Hg] Tommie Pineda [place] [facility] 2 08:16:38 Social History Question Answer Notes LastModified by [employer] Details LastModified Time Tobacco Smoking Status Never Smoker Tommie Pineda [place], [place] - [facility] 08/31/2021 12:08:40 Do You Have An Advance Directive? Yes [email or web address] Information not available 08/31/2021 Are You Blind Or Do You Have Difficulty Seeing? No [email or web address] Information not available 08/31/2021 What Is Your Code Status? Full Code [email or web address] Information not available 08/31/2021 Are You Deaf Or Do You Have Serious Difficulty Hearing? 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 Yes [email or web address] Information not available 08/31/2021 Live Alone Or With Others? Alone Information not available 08/28/2021 Do You Have A Caregiver? No [email or web address] Information not available 08/31/2021 Do You Have A Medical Power Of Aerobics Teacher? Yes Sister ISMAEL Mandujano [email or web address] Information not available 08/31/2021 How Many Children Do You Have? 0 [email or web address] Information not available 08/31/2021 What Is Your Relationship Status? [email or web address] Information not available 08/31/2021 Has Tobacco Cessation Counseling Been Provided? No Information not available 08/31/2021 Do You Have Difficulty Walking Or Climbing Stairs? Yes Requires [email or web address] Information not available 08/31/2021 Sex: Unknown Functional Status Question Answer Note LastModified by [employer] Details LastModified Time Do you use any illicit or recreational drugs? No [email or web address] Information not available 08/31/2021 What is your level of alcohol consumption? None [email or web address] Information not available 08/31/2021 Are you able to walk independently without assistance or assistive devices? YESASSIST Pt requires wheeled walker and min assist Information not available 08/28/2021 Do you have difficulty doing errands alone? Yes currently prior to surgery no [email or web address] Information not available 08/31/2021 Are you able to care for yourself independently? Yes [email or web address] Information not available 08/31/2021 Do you have difficulty dressing, bathing, grooming, or toileting? Yes Pt requires contact guard assist in grooming and min assist in dressing Information not available 08/28/2021 Mental Status Question Answer Note LastModified by Organization D etails LastModified Time Do you have difficulty concentrating, remembering or making decisions? No [email or web address] Information no t available 08/31/2021 Family History Relationship Description Onset Age of this Age Resolved Age Notes LastModified by Organization Details LastModified Time Paternal Grandmother Primary malignant neoplasm of skin of breast Not available 2021 12:07:31 Father Malignant neoplasm of kidney [email or web address] Not available 2021 12:07:47 Brother Malignant neoplasm of colon [email or web address] Not available 2021 12:08:18 Medical History Condition [...] Diagnosis SNOMED-CT Code Diagnosis ICD10 Code Diagnosis IMO Codes Diagnosis Note [id number] Damaris Amor DO [address] [address] 08/29/2021 02:15:15 09/09/2021 00:44:23 Osteoarthritis of right hip joint 6454088431 46732 M16.11 s/p right hip replacemen t per dr. gurdeep thacker hip precaution s, prn norco for painasa for dvt prophylaxi stherapy, wound caref/u with ortho as scheduled 09/10 Essential hypertension 39631075 I10 blood pressures have been low since admission - will decrease metoprolol to 25 mg bid with hold parameters , continue lasix 20 mg daily and continue to trend Asthma 803131617 J45.90 9 continue breo daily, prn albuterole ncouraged ISwill have respirator y follow Anemia 108292614 D64.9 continue iron replacemen t, trend cbc Hypothyroidism 15426999 E03.9 presumed stable - continue synthroid Constipation 29692220 K5 9.00 continue bid senna s, additional meds available via standing ordres History of malignant neoplasm of breast 881932212 Z85.3 continue femara - outpt f/u with oncology [id number] TOMMIE PINEDA NP [facility] [address] [place] [address] 08/31/2021 07:28:31 09/11/2021 09:18:30 Osteoarthritis of right hip joint 9338078369 15359 M16.11 s/p right hip replacemen t per dr. gurdeep thacker hip precaution s, prn norco for painasa for dvt prophylaxi stherapy, wound caref/u with ortho as scheduled 09/10 Essential hypertension 10163959 I10 blood pressures have been low since admission - will decrease metoprolol to 25 mg bid with hold parameters , continue lasix 20 mg daily and continue to trend Asthma 812314843 J45.90 9 continue breo daily, prn albuterole ncouraged ISRT without concerns Anemia 358021017 D64.9 continue iron replacemen t, trend cbc Hypothyroidism 35626210 E03.9 presumed stable - continue synthroid Constipation 02725442 K5 9.00 continue bid senna s, additional meds available via standing ordres History of malignant neoplasm of breast 768859495 Z85.3 continue femara - outpt f/u with oncology [id number] TOMMIE PINEDA NP [facility] [address] [place] [address] 09/03/2021 09:57:19 09/11/2021 09:19:48 Constipation 96449364 K59.00 Added Senna plus PRN Postoperative pain 90089 9007 G89.18 increased the amount of time between Speed. Pt. v/u and is agreeable with plan Osteoarthr itis of right hip joint 8381331866 38861 M16.11 s/p right hip replacemen t per dr. gurdeep thacker hip precaution s, prn norco for painasa for dvt prophylaxi stherapy, wound caref/u with ortho as scheduled 3 Essential hypertension 71072425 I10 blood pressures have been low since admission - will decrease metoprolol to 25 mg bid with hold parameters , continue lasix 20 mg daily and continue to trendblood pressure reviewed and remain stable Asthma 039197755 J45.90 9 continue breo daily, prn albuterole ncouraged ISRT without concerns Anemia 115400645 D64.9 continue iron replacemen t, trend cbc; SEE PE Hypothyroidism 66985684 E03.9 presumed stable - continue synthroid History of malignant neoplasm of breast 422321938 Z85.3 continue femara - outpt f/u with oncology [facility] risk of polypharmacy 429449704 Z91.89 continue with Vitamin C. Monitor side effects of polypharma cy. Vitamin D deficiency 347 63698 E55.9 continue with cholecalci ferol [id number] TOMMIE PINEDA NP [facility] [address] [place] [address] 09/05/2021 23:20:25 09/11/2021 09:20:32 Constipation 89306738 K59.00 Continue with PRN senna pluse Postoperative pain 04394 9007 G89.18 increased the amount of time between Speed. Pt. v/u and is agreeable with plan Osteoarthr itis of right hip joint 6900656431 94479 M16.11 s/p right hip replacemen t per dr. gurdeep thacker hip precaution s, prn norco for painasa for dvt prophylaxi stherapy, wound caref/u with ortho as scheduled 3 Essential hypertension 92286937 I10 blood pressures have been low since admission - will decrease metoprolol to 25 mg bid with hold parameters , continue lasix 20 mg daily and continue to trendblood pressure stable Asthma 328409783 J45.90 9 continue breo daily, prn albuterole ncouraged ISRT without concerns Anemia 967574799 D64.9 continue iron replacemen t, trend cbc; SEE PE Hypothyroidism 31608813 E03.9 presumed stable - continue synthroid History of malignant neoplasm of breast 919200270 Z85.3 continue femara - outpt f/u with oncology [facility] risk of polypharmacy 522017523 Z91.89 continue with Vitamin C. Monitor side effects of polypharma cy. Vitamin D deficiency 347 79935 E55.9 continue with cholecalci ferol [id number] Damaris Amor DO PAC [facility] [address] [place] [address] 09/06/2021 20:16:54 09/11/2021 09:21:52 Swelling of lower leg 388555916 R22.41 check venous doppler, elevate the legs, add tubi family law mediator, increase lasix to 40 mg daily x 3 days Osteoarthr itis of right hip joint 5123034145 72310 M16.11 s/p right hip replacemen t per dr. gurdeep thacker hip precaution s, prn norco for pain - increasing dose to 1-2 tabs every 4 hours prnasa for dvt prophylaxi stherapy, wound caref/u with ortho as scheduled 09/10 Essential hypertension 38484416 I10 decreased metoprolol to 25 mg bid with hold parameters on admission here. continue lasix 20 mg daily (increasin g to 40 mg daily x 3 days) and continue to trend Asthma 790608862 J45.90 9 continue breo daily, prn albuterole ncouraged ISrespirat ory therapy following - respirator y status is stable Anemia 948600561 D64.9 continue iron replacemen t, trend cbc Hypothyroidism 88567289 E03.9 presumed stable - continue synthroid Constipation 96024756 K5 9.00 continue bid senna s, additional meds available via standing orders History of malignant neoplasm of breast 648330313 Z85.3 continue femara - outpt f/u with oncology Postoperative pain 29223 9007 G89.18 [id number] TOMMIE PINEDA, BUTCH [facility] [address] [place] [address] 09/11/2021 11:31:50 09/19/2021 11:35:49 Swelling of lower leg 996551231 R22.41 3/4 venous ultrasound - negativeel evate the legs, add tubi family law mediator, increase lasix to 40 mg daily x 3 days Osteoarthr itis of right hip joint 7650365683 75415 M16.11 s/p right hip replacemen t per dr. gurdeep thacker hip precaution s, prn norco for pain - increasing dose to 1-2 tabs every 4 hours prnasa for dvt prophylaxi stherapy, wound caref/u with ortho as scheduled 09/10 Essential hypertension 13500471 I10 decreased metoprolol to 25 mg bid with hold parameters on admission here. continue lasix 20 mg daily (increasin g to 40 mg daily x 3 days) and continue to trendblood pressure remained stable Asthma 970346045 J45.90 9 continue breo daily, prn albuterole ncouraged ISrespirat ory therapy following - respirator y status is stable Anemia 752889618 D64.9 continue iron replacemen t, trend cbc Hypothyroidism 52587370 E03.9 presumed stable - continue synthroid Constipation 63884165 K5 9.00 continue bid senna s, additional meds available via standing orders History of malignant neoplasm of breast 027012180 Z85.3 continue femara - outpt f/u with oncology Postoperative pain 25576 9007 G89.18 increased the amount of time between Speed.Pt. v/u and is agreeable with plan [id number] TOMMIE PINEDA NP [facility] [address] [place] [address] 09/13/2021 23:46:10 09/19/2021 11:36:45 Swelling of lower leg 186879933 R22.41 3/4 venous ultrasound - negativeel evate the legs, add tubi family law mediator, increase lasix to 40 mg daily x 3 days Osteoarthr itis of right hip joint 2409315137 42933 M16.11 s/p right hip replacemen t per dr. gurdeep thacker hip precaution s, prn norco for pain - increasing dose to 1-2 tabs every 4 hours prnasa for dvt prophylaxi stherapy, wound caref/u with ortho as scheduled 09/10 per therapyTr ansfers: SBABed Mobility: min assist for legsGait: walking 125ft SBADevice: FWWStairs: 2 steps. Has 2 steps at homeBalanc e: F+ to FSafety: fair to fair plusOTUB Drsg: supervisio Rosalino Drsg: min - CGABathing : min/CGAToi leting: CGASafety: fairFeedin g:Ind.Has trouble maintianin g hip precaution s Essential hypertension 33571132 I10 decreased metoprolol to 25 mg bid with hold parameters on admission here. continue lasix 20 mg daily continue to trendblood pressure remained stable Asthma 953220870 J45.90 9 continue breo daily, prn albuterole ncouraged ISrespirat ory therapy following - respirator y status is stable Anemia 735765081 D64.9 continue iron replacemen t, trend cbc Hypothyroidism 95230349 E03.9 presumed stable - continue synthroid Constipation 14947872 K5 9.00 continue bid senna s, additional meds available via standing orders History of malignant neoplasm of breast 701208654 Z85.3 continue femara - outpt f/u with oncology Postoperative pain 88666 9007 G89.18 increased the amount of time between Speed.Pt. v/u and is agreeable with plan [id number] TOMMIE PINEDA NP [facility] [address] [place] [address] 09/18/2021 17:03:15 09/24/2021 10:32:00 Swelling of lower leg 293784776 R22.41 3/4 venous ultrasound - negativeel evate the legs, add tubi family law mediator Osteoarthr itis of right hip joint 5657407768 32308 M16.11 s/p right hip replacemen t per dr. gurdeep thacker hip precaution s, prn norco for pain - increasing dose to 1-2 tabs every 4 hours prnasa for dvt prophylaxi stherapy, wound caref/u with ortho as scheduled Essential hypertension 22041203 I10 decreased metoprolol to 25 mg bid with hold parameters on admission here. continue lasix 20 mg daily continue to trendblood pressure remained stable Asthma 887125055 J45.90 9 continue breo daily, prn albuterole ncouraged ISrespirat ory therapy following - respirator y status is stable Anemia 199204520 D64.9 continue iron replacemen t, trend cbc Hypothyroidism 37883432 E03.9 presumed stable - continue synthroid Constipation 56413216 K5 9.00 continue bid senna s, additional meds available via standing orders- patient did report mild constipati on today but she deferred any daily stool softeners at this time. History of malignant neoplasm of breast 734783708 Z85.3 continue femara - outpt f/u with oncology Postoperative pain 28763 9007 G89.18 increased the amount of time between Speed.Pt. v/u and is agreeable with plan [id number] Damaris Amor, PAC [facility] [address] [place] [address] 09/21/2021 10:46:05 09/24/2021 10:33:40 Swelling of lower leg 496392533 R22.41 3/4 venous ultrasound - negative.I mproved. Continue compressio n and elevate legs at rest. Osteoarthr itis of right hip joint 4704006015 62840 M16.11 s/p right hip replacemen t per dr. gurdeep thacker hip precaution s.Schedule d APAP for pain. Decrease PRN Speed to 1 tab PRN so as not to exceed daily APAP limit. Pt has never requested 2 tabs anyway.Con tinue asa for dvt prophylaxi sContinue therapy, wound caref/u with ortho as scheduled Essential hypertension 16495151 I10 Decreased metoprolol to 25 mg bid with hold parameters on admission here.Stabl e. Continue Lasix & Metoprolol .Continue to trend blood pressures, monitor lytes and renal function, and adjust meds as clinically indicated. Asthma 686657915 J45.90 9 Stable. Continue breo daily, prn albuterole ncouraged ISrespirat ory therapy following - respirator y status is stable Anemia 815371006 D64.9 Stable. Continue iron replacemen t, trend cbc Hypothyroidism 50304346 E03.9 presumed stable - continue synthroid Constipation 30055791 K5 9.00 Stable. Continue PRN senna s. History of malignant neoplasm of breast 055241481 Z85.3 Stable. Continue Femara - outpt f/u with oncology [id number] TOMMIE PINEDA, [facility] [address] [place] [address] 09/25/2021 16:44:38 10/14/2021 07:44:32 Osteoarthritis of right hip joint 0008638854 46147 M16.11 s/p right hip replacemen t per dr. ferraracon tinue hip precaution s.Schedule d APAP for pain. continue with PRN Speed (pt. will go home with her supply here)Matti nue asa for dvt prophylaxi sContinue therapy, wound care at home with home healthf/u with ortho as scheduled Essential hypertension 61660829 I10 Stable with decrease in metoprolol . Continue Lasix & Metoprolol . Continue to trend blood pressures, monitor lytes and renal function, and adjust meds as clinically indicated. Swelling of lower leg 44 1013215 R22.41 3/4 venous ultrasound - negative.I mproved. Continue compressio n and elevate legs at rest. - pt. has been doing a good job at this Asthma 063437300 J45.90 9 Stable. Continue breo daily, prn albuterole ncouraged ISrespirat ory therapy following - respirator y status is stable Anemia 220149190 D64.9 Stable. Continue iron replacemen t, trend cbc Hypothyroidism 35396512 E03.9 presumed stable - continue synthroid Constipation 78143221 K5 9.00 Stable. Continue PRN senna s. History of malignant neoplasm of breast 412033706 Z85.3 Stable. Continue Femara - outpt f/u with oncology Health Concerns Section Related Observation LastModified by Organization Detai ls LastModified Time None Recorded Concern Status LastModified by Organization Details LastModified Time None Recorded Advance Directives Directive Y: Payers Insurance Date Sequence Insurance Name Policy Number Policy Benjamin Covered Member ID Benjamin Member ID Guarantor Name 10/14/2021 2 [place] [facility] [place] [employer] [id number] Mariam [place] 09/06/2021 1 [place] Mariam Parish [id number] Mariam [place] Notes Date Note Type Note Provider Name and Address Organization Details Recorded Time 09/11/2021 text/html ROS as noted in the HPI 61 y/o pleasant white female admitted to [facility] for post acute rehab subsequent to an inpatient stay at [facility] 08/27-08/28/21 for an elective right hip replacement [...] therapy deny any other concerns this time Tommie casiano [employer] [facility] 09/18/2021 16:57:25 09/13/2021 text/html ROS as noted in the HPI 61 y/o pleasant white female admitted to [facility] for post acute rehab subsequent to an inpatient stay at [facility] 08/27-08/28/21 for an elective right hip replacement [...] other concerns or complaints at this time. Tommie casiano [place] [facility] 09/18/2021 17:02:50 09/18/2021 text/html ROS as noted in the HPI 61 y/o pleasant white female admitted to [facility] for post acute rehab subsequent to an inpatient stay at [facility] 08/27-08/28/21 for an elective right hip replacement [...] any concerns or complaints at this time. Tommie casiano, [facility] 09/18/2021 17:07:12 09/21/2021 text/html ROS as noted in the HPI F/U advanced OA s/p elective right hip [...] not offer any concerns. Jaye Ma, [facility] [address] [place], [address], [facility] 09/22/2021 13:13:03 09/25/2021 text/html ROS as noted in the HPI F/U advanced OA s/p elective right hip [...] Therapy reports that home visit went well. Tommie casiano, [employer] [facility] 10/06/2021 08:24:58 OBGyn Episode No OBEpisode recorded.
--- OUTSIDE RECORDS SUMMARY | 2025-05-12 20:49 | XMS_ITS | Encounter Summary ---
Author Organization [facility] Address [address] [place] [address] Phone Care Team Providers Care Product Picker Name Role Phone Symone Juan David Fisher MD Unavailable [phone] Hector Rendon MD Unavailable Rohit Cardoso MD Unavailable Sung Do MD Unavailable Silvano Byrne MD Primary Care Provider [phone] Shawn Alves MD Unavailable Nati Garcia [facility] Primary Care Pro vider Reason for Visit * Reason Comments Medication Refill Encounter Details Date Type Department Care Team (Late st Contact Info) Description [facility] [address] [place] [address] Hector Rendon MD [address] [place] [address] Medication Refill Social History Tobacco [...] 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 Not on file No t on file documented as of this encounter Miscellaneous Notes * Telephone Encounter - Radha Evans RN - 11/15/2021 11:34 AM CDT Refilled Letrozole documented in this encounter Plan of Treatment Upcoming Encounters Date Type Department Care Team (Late st Contact Info) Description 05/17/2025 10:30 AM PLANT ASSIGNER Office Visit [facility] - [place] [place] [address] Nati Garcia PAC [address] [place] [address] 05/26/2025 2:00 PM PLANT ASSIGNER Office Visit [facility] [place] [address] [place] [phone] Nati Garcia, DEEDEE [address] [place] [address] 10/25/2025 11:00 AM CDT Office Visit [facility] Oncology Services [address] [place] [phone] Hector Rendon MD [address] [place] [address] Discharge Disposition: Discharged to home or Selfcare 10/25/2025 11:30 AM CDT Clinical Support [facility] Oncology Services [address] [place] [phone] Hector Rendon MD [address] [place] [address] Discharge Disposition: Discharged to home or Selfcare [...] documented as of this encounter Care Teams Product Picker Relationship Specialty Start Date End Date Silvano Byrne MD [address] [address] PCP - General Family Medicine 02/25/20 03/23/24 Nati Garcia PAC [address] [address] PCP - General Physician Security Door Installer 03/24/24 Juan David Ashby MD Consulting Physician General Surgery 12/27/19 Hector Rendon MD [address] [place] [address] Consulting Physician Medical Oncology 12/27/19 Rohit Cardoso MD [address] [place] [address] Consulting Physician Radiation Oncology 12/27/19 Sung Do MD [address] [address] Consulting Physician Cardiovascular Disease - Cardiology 12/28/19 Shawn Alves MD [address] [address] Consulting Physician Colon and Rectal Surgery 05/10/22 documented as of this encounter
--- OUTSIDE RECORDS SUMMARY | 2025-05-12 20:49 | XMS_ITS | Encounter Summary ---
Author Organization [facility] Address [address] [place] [address] Phone Care Team Providers Care Turbine Engineer Name Role Phone Juan David Ashby MD Unavailable Hector Rendon MD Unavailable [phone] Rohit Cardoso MD Unavailable [phone] Sung Do MD Unavailable Shawn Alves MD Unavailable Nati Garcia [facility] Primary Care Pro vider Reason for Visit * Reason Onset Date Comments Follow-up 05/04/2025 Encounter Details Date Type Department Care Team (Late st Contact Info) Description 05/04/[address] [facility] [address] [place] [phone] Nati Garcia, [facility] [address] [place] [address] Follow-up Social History Tobacco Use Types Packs/Day Years Used Date Smoking Tobacco: Never Smokeless Tobacco: Never Alcohol Use Standard Drinks/Week Comments Not Currently 0 (1 standard drink = 0.6 oz pur e alcohol) Occasionally on holidays. [facility] Utilities Answer Date Recorded In the past 12 months has th e electric, gas, oil, or water company threatened to shut off services in your home? No 03/29/2024 Social Connection and Isolation Panel Answer Date Recorded In a typical week, how many times do you talk on the phone with family, friends, or neighbors? 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 If so, this would warrant an OV * Telephone Encounter - Argelia Hernandez RN - 05/04/2025 10:40 AM CDT Situation: Follow up Background: Patient contacting PCP office. Assessment: Patient states her dental office has reached out to PCP office in regards for clearance to do a deep cleaning and another kind of cleaning that only they can do. Has been having bleeding around [place]. Patient is currently on Eliquis. Currently sees [facility] dental medicine in [place]. Phone number online [phone] Patient states fax was sent 3-4 times to the office. Recommendation: Please advise documented in this encounter Plan of Treatment Upcoming Encounters Date Type Department Care Team (Late st Contact Info) Description 05/17/2025 10:30 AM BOTTLE BOOTH ATTENDANT Office Visit [facility] - [address] [place] [address] Nati Garcia PAC [address] [place] [address] 05/26/2025 2:00 PM BOTTLE BOOTH ATTENDANT Office Visit [facility] - [address] [place] [phone] Nati Garcia PAC [address] [place] [address] 10/25/2025 11:00 AM CDT Office Visit [facility] Oncology Services [address] [place] [phone] Hector Rendon MD [address] [place] [address] Discharge Disposition: Discharged to home or Selfcare 10/25/2025 11:30 AM CDT Clinical Support [facility] Oncology Services [address] [place] [address] Hector Rendon MD [address] [place] [address] Discharge Disposition: Discharged to home or Selfcare documented as of this encounter Goals Goal Patient Goal Type Associated Problems Recent Progress Patient-Stated? Author Healthy Lifestyle Healthy Lifestyle Carolyn Olivo, RN Note: Pace/increase activity documented as of this encounter Visit Diagnoses Not on filedocumented in this encounter Additional Health Concerns Assessment Noted Time PHQ-9 Depression Total Score: 5 09/28/19 25 11:34 AM CDT documented as of this encounter Care Teams Turbine Engineer Relationship Specialty Start Date End Date Nati Garcia PAC [address] [address] PCP - General Physician Protocol Officer 03/24/24 Juan David Ashby MD Consulting Physician General Surgery 12/27/19 Hector Rendon MD [address] [place] [address] Consulting Physician Medical Oncology 12/27/19 Rohit Cardoso MD [address] [place] [address] Consulting Physician Radiation Oncology 12/27/19 Sung Do MD [address] [address] Consulting Physician Cardiovascular Disease - Cardiology 12/28/19 Shawn Alves MD [address] [address] Consulting Physician Colon and Rectal Surgery 05/10/22 documented as of this encounter
--- OUTSIDE RECORDS SUMMARY | 2025-05-12 20:49 | XMS_ITS | Encounter Summary ---
Author Organization [facility] Address [address] [place] [address] Phone Care Team Providers Care Fur Sewer Name Role Phone SymoneJuan David MD Unavailable Hector Rendon MD Unavailable Rohit Cardoso MD Unavailable Sung Do MD Unavailable Silavno Byrne MD Primary Care Provider Shawn Alves MD Unavailable Nati Garcia [facility] Primary Care Pro vider Reason for Visit * Reason Comments Medication Refill Encounter Details Date Type Department Care Team (Late st Contact Info) Description 07/29/2021 Refill [facility] - Rowan Guido Staples [address] [place] [address] Silvano Byrne MD [address] [place] [address] Medication Refill Social History Tobacco Use Types [...] 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 Showing future appointments within next 90 days and meeting all other requirements OF FACULTY documented in this encounter Plan of Treatment Upcoming Encounters Date Type Department Care Team (Late st Contact Info) Description 05/17/2025 10:30 AM DEAN OF FACULTY Office Visit [facility] - [address] [place] [phone] Nati Garcia, PAC [address] [place] [address] 05/26/2025 2:00 PM DEAN OF FACULTY Office Visit [facility] - [address] [place] [address] Nati Garcia, PAC [address] [place] [address] 10/25/2025 11:00 AM CDT Office Visit [facility] Oncology Services [address] [place] [address] Hector Rendon MD [address] [place] [address] Discharge Disposition: Discharged to home or Selfcare 10/25/2025 11:30 AM CDT Clinical Support [facility] Oncology Services [address] [place] [address] Hector Rendon MD [address] [place] [address] Discharge Disposition: Discharged to home or Selfcare [...] documented as of this encounter Care Teams Fur Sewer Relationship Specialty Start Date End Date Silvano Byrne MD [address] [facility] [address] [place] [address] PCP - General Family Medicine 02/25/20 03/23/24 Nati Garcia PAC [address] [facility] [address] [place] [address] PCP - General Physician Tool Worker 03/24/24 Juan David Ashby MD Consulting Physician General Surgery 12/27/19 Hector Rendon MD [address] [place] [address] Consulting Physician Medical Oncology 12/27/19 Rohit Cardoso MD [address] [place] [address] Consulting Physician Radiation Oncology 12/27/19 Sung Do MD [address] [facility] [address] [place] [address] Consulting Physician Cardiovascular Disease - Cardiology 12/28/19 Shawn Alves MD [address] [address] Consulting Physician Colon and Rectal Surgery 05/10/22 documented as of this encounter
--- OUTSIDE RECORDS SUMMARY | 2025-05-12 20:49 | XMS_ITS | Encounter Summary ---
Author Organization [facility] Address [address] [place] [address] Phone Care Team Providers Care Ball Winder Name Role Phone Symone Juan David Fisher MD Unavailable [phone] Hector Rendon MD Unavailable [phone] Rohit Cardoso MD Unavailable Sung Do MD Unavailable Silvano Byrne MD Primary Care Provider Shawn Alves MD Unavailable Nati Garcai [facility] Primary Care Pro vider Reason for Visit * Reason Comments Medication Refill Encounter Details Date Type Department Care Team (Late st Contact Info) Description 11/12/2020 [facility] [address] [place] [address] Hector Rendon MD [address] [place] [address] Medication Refill Social History Tobacco [...] 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 on file No t on file documented as of this encounter Miscellaneous Notes * Telephone Encounter - Radha Evans RN - 11/13/2020 8:14 AM CDT Refilled Letrozole documented in this encounter Plan of Treatment Upcoming Encounters Date Type Department Care Team (Late st Contact Info) Description 05/17/2025 10:30 AM COMPANY TRUCK DRIVER Office Visit [facility] - [address] [place] [address] Nati Garcia PAC [address] [place] [address] 05/26/2025 2:00 PM COMPANY TRUCK DRIVER Office Visit [facility] - [address] [place] [address] Nati Garcia, DEEDEE [address] [place] [address] 10/25/2025 11:00 AM CDT Office Visit [facility] Oncology Services [address] [place] [address] Hector Rendon MD [address] [place] [address] Discharge Disposition: Discharged to home or Selfcare 10/25/2025 11:30 AM CDT Clinical Support [facility] Oncology Services [address] [place] [phone] Hector Rendon MD [address] [place] [address] Discharge Disposition: Discharged to home or Selfcare documented as of this encounter Visit Diagnoses Not on filedocumented in this encounter Care Teams Ball Winder Relationship Specialty Start Date End Date Silvano Byrne MD [address] [place] [address] PCP - General Family Medicine 02/25/20 03/23/24 Nati Garcia PAC [address] [address] PCP - General Physician Assistant Curator 03/24/24 Juan David Ashby MD Consulting Physician General Surgery 12/27/19 Hector Rendon MD [address] [place] [address] Consulting Physician Medical Oncology 12/27/19 Rohit Cardoso MD [address] [place] [address] Consulting Physician Radiation Oncology 12/27/19 Sung Do MD [address] [place] [address] Consulting Physician Cardiovascular Disease - Cardiology 12/28/19 Shawn Alves MD [address] [facility] [address] [place] [address] Consulting Physician Colon and Rectal Surgery 05/10/22 documented as of this encounter
== END 2025-05-12 15:04 | disposition home or self-care (01) ==
PROVIDERS: PCP Physician Assistant; Visit Provider Nurse Practitioner Adult Health
DX: I42.8 Other cardiomyopathies (principal); I50.9 Heart failure, unspecified
CPT/HCPCS: 71046

== ENCOUNTER 2025-05-17 11:44 | Inpatient (IN) | payer OTHER, SELFPAY ==
[2025-05-17] VITALS (8 sets, daily range): BP systolic 135–184; BP diastolic 61–76; PULSE 50–58; RESP 16–21; TEMP 36.3–37.1; O2SAT 93–100; BMI 20.2
--- NOTE | ~2025-05-17 | XR_ITS ---
EXAMINATION: XR chest 2V DATE: 05/17/2025 13:02 INDICATION: Shortness of breath TECHNIQUE: Frontal and lateral views of the chest were obtained. COMPARISON: May 22 FINDINGS: Small effusions with bibasilar ectatic and probable consolidative changes again noted, not clearly changed. Upper lung adams are clear. Heart shadow appears mildly enlarged. Sternal retention wires stable in configuration. No pneumothorax or subphrenic free air seen. IMPRESSION: 1. Small persistent effusions with bibasilar atelectatic and/or consolidative changes which could represent pulmonary edema and/or pneumonia. No definite change from May 12 chest x-ray. Reviewed, dictated and finalized at location A. CTOR PROCESS IMPROVEMENT IMPRESSION: 1. Small persistent effusions with bibasilar atelectatic and/or consolidative c hanges which could represent pulmonary edema and/or pneumonia. No definite paredes ge from May 12 chest x-ray.
--- NOTE | ~2025-05-17 | US_ITS ---
EXAMINATION: US venous doppler UE DATE: 05/20/2025 12:47 INDICATION: Left upper limb swelling TECHNIQUE: Grayscale images without and with compression and Doppler images of the left upper extremity veins were obtained. COMPARISON: None. FINDINGS: There is a small amount of noncompressible thrombus around the tip of the echogenic peripheral IV in the left cephalic vein at the forearm. The remainder of the more proximal cephalic vein is patent and compressible. The left internal jugular vein, subclavian vein, axillary vein, brachial vein, basilic vein, radial vein, and ulnar vein are patent. IMPRESSION: 1. Small amount of thrombus around the tip of a peripheral IV in the left cephalic vein at the forearm. No other venous anastomosis in the left upper limb. Findings were discussed with Josee Jones, the nurse caring for the patient, at 12:54 PM. Reviewed, dictated and finalized at location A. LOCK OPERATOR IMPRESSION: 1. Small amount of thrombus around the tip of a peripheral IV in the left cepha lic vein at the forearm. No other venous anastomosis in the left upper limb. Fi ndings were discussed with Josee Jones, the nurse caring for the patient, a t 12:54 PM.
--- OUTSIDE RECORDS SUMMARY | 2025-05-17 10:30 | XMS_ITS | Encounter Summary ---
Author Organization [facility] Address [address] [place] [address] Phone Care Team Providers Care Fixture Designer Name Role Phone Juan David Ashby MD Unavailable Hector Rendon MD Unavailable Rohit Cardoso MD Unavailable [phone] Sung Do MD Unavailable Shawn Alves MD Unavailable Nati Garcia Primary Care Pro vider Reason for Visit * Reason Comments Hypertension 1 mo follow up Encounter Details Date Type Department Care Team (Late st Contact Info) Description 05/17/2025 10:30 AM SCHOOL PROGRAM DIRECTOR Office Visit [facility] - Primary Care - [place] [address] [place] [phone] Nati Garcia PAC [address] [place] [address] Shortness of breath (Primary Dx); Chronic heart failure with preserved ejection fraction Discharge Disposition: Discharged to home or Selfcare Social History Tobacco Use Types Packs/Day Years Used Date Smoking Tobacco: Never Smokeless Tobacco: Never Tobacco Cessation:Counseling Given: No Alcohol Use Standard Drinks/Week Comments Not Currently 0 (1 standard drink = 0.6 oz pur e alcohol) Occasionally on holidays. 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 Not on file No t on file documented as of this encounter Last Filed Vital Signs Vital Sign Reading Time Taken Comments Blood Pressure 170/76 05/17/2025 10:31 AM SCHOOL PROGRAM DIRECTOR Pulse 60 05/17/2025 10:31 AM SCHOOL PROGRAM DIRECTOR Temperature 36.1 C (97 F) 05/17/2025 10:31 AM SCHOOL PROGRAM DIRECTOR Respiratory Rate 12 05/17/2025 10:31 AM SCHOOL PROGRAM DIRECTOR Oxygen Saturation 98% 05/17/2025 10:31 AM SCHOOL PROGRAM DIRECTOR Inhaled Oxygen Concentration - - Weight - - Height - - Body Mass Index - - documented in this encounter Progress Notes * VirginiaConchita, RMA - 05/17/2025 10:30 AM CST Mariam Rupal Parish, 64 y.o., female is here for Hypertension (1 mo follow up ) Medication Refills: Patient reports/denies need for medication refills. Orders Pended: no Requested Prescriptions No prescriptions requested or ordered in this encounter Home Medications Medication Sig Start Date End Date Taking? Authorizing Provider acetaminophen (TYLENOL) 325 MG Tablet Take 650 mg by mouth every 4 hours as needed for Mild or moresevere pain or Fever. Yes Provider, MD Bella apixaban (Eliquis) 5 MG Tablet Take 5 mg by mouth 2 times daily. Yes Nati Garcia PAC Cholecalciferol (VITAMIN D-3 PO) Take by mouth. Yes ProviderBella MD Denosumab (PROLIA) 60 MG/ML Solution Prefilled Syringe 60 mg by Subcutaneous route every 180 days. Yes Bella Rodriguez MD ferrous sulfate 325 (65 Fe) MG Tablet 1 tab by mouth once every other day Indications: Anemia From Inadequate Iron in the Body 03/01/25 Yes Dione Chew APRN, NIDIA furosemide (LASIX) 20 MG Tablet TAKE 1 TABLET BY MOUTH EVERY DAY IN THE MORNING Patient taking differently: Taking two daily for now 05/07/07 Yes Bella Rodriguez MD letrozole (FEMARA) 2.5 MG Tablet TAKE 1 TABLET BY MOUTH EVERY DAY 01/03/25 Yes Hector Rendon MD levothyroxine (SYNTHROID) 50 MCG Tablet TAKE 1 TABLET BY MOUTH EVERY DAY 05/04/25 Yes Nati Garcia PAC metoprolol tartrate (LOPRESSOR) 50 MG Tablet Take 50 mg by mouth 2 times daily. Yes Bella Rodriguez MD Mirtazapine (REMERON) 7.5 MG Tablet Take 1 Tablet by mouth nightly. 04/26/25 Yes Hector Rendon MD Multiple Vitamin (Multi-Vitamin) Tablet Take 1 Tablet by mouth daily. Yes ProviderBella MD ProAir HFA 108 (90 Base) MCG/ACT Aerosol Solution INHALE 1-2 PUFFS BY MOUTH EVERY 6 HOURS NEEDEDFOR WHEEZING 07/10/20 Yes Belinda Kelly APRN, NIDIA Wixela Inhub 250-50 MCG/ACT AEROSOL POWDER, BREATH ACTIVATED take 1 Puff by inhalation 2 times daily. 09/03/24 Yes Bella Rodriguez MD There are no discontinued medications. I have reviewed the home medication list with the patient and family and have reconciled discrepancies. The list is accurate to the best of my knowledge. Smoking Status: Social History[1] Smoking Cessation Counseling Given: no Health Care Maintenance: Health Maintenance Due Topic Date Due Medicare Initial AWV G0438 Never done Respiratory Syncytial Virus (RSV) Immunization (Adult) (1 - Risk 50-74 years 1- dose series) Never done Pneumococcal Immunization (50+ years) (3 of 3 - PCV20 or PCV21) 02/24/2025 Mammogram 07/09/2025 Orders Pended: no The following BPA's have been addressed with the patient today: BMI [1] Social History Tobacco Use Smoking status: Never Smokeless tobacco: Never Vaping Use Vaping status: Never Used Substance Use Topics Alcohol use: Not Currently Comment: Occasionally on holidays. Drug use: Never OL PROGRAM DIRECTOR * Nati Garcia, DEEDEE - 05/17/2025 10:30 AM CST Chief Complaint: Chief Complaint Patient presents with Hypertension 1 mo follow up Assessment/Plan: Diagnoses and all orders for this visit: Shortness of breath Chronic heart failure with preserved ejection fraction Assessment & Plan 1. Congestive heart failure: - Shortness of breath and breathing issues are present, especially when talking and eating. - The chest x-ray revealed signs of congestive heart failure. - She is currently taking furosemide 10 mg, 2 pills in the morning and 1 in the evening at least 6 hours apart, and potassium chloride. She has an appointment with her prevention coordinator on 06/16/2025. - She is advised to go to the emergency room due to difficulty breathing even while talking and eating. 2. Possible pneumonia: - The chest x-ray indicated possible pneumonia. - She should inform the ER staff about her current amoxicillin use for a dental infection, which can also treat lung infections. 3. Pacemaker site wound: - The wound appears to be healing well with new skin formation. - If admitted to the hospital, the wound should be cleaned with alcohol. If not admitted, she should clean it with warm soapy water at home and leave it open to air dry. PROCEDURE Procedure: Wound care - Procedural Discussion: Discussed the wound near the pacemaker area, including the observation of new skin and healing progress. The patient was advised to clean the wound with warm soapy water and leave it open to air dry. - Technique: Examined the wound and assessed healing progress. - Post-Procedural Discussion: The wound was observed to be healing well with new skin. The patient was advised to clean the wound with warm soapy water and leave it open to air dry. She is going to [place] ER due to her CHF exacerbation, possible pneumonia, and SOB with talking, eating, exertion, etc She has been asked to touch base with both PULM and CARDIO Subjective: History of Present Illness The patient is a 64-year-old female who presents for evaluation of shortness of breath and wound check. She is accompanied by her sister. She has been experiencing significant respiratory distress, particularly during physical exertion such as walking. Her symptoms are less severe when she maintains a slow pace. She also reports difficulty in simultaneous eating and breathing, necessitating frequent pauses during meals. Additionally,she struggles with concurrent speech and respiration. On Friday, she was seen by the prevention coordinator due to trouble breathing and swelling in her ankles, hand, and arm. An x-ray was performed, and the nurse sent a message last night indicating it was concerning. The report was sent to the colorist dyer. The prevention coordinator noted sounds in her right lung that sounded congested. She is currently on furosemide 10 mg, taking 2 pills in the morning and 1 in the evening at least 6 hours apart, and potassium chloride. She has another appointment with Vero, advanced practice nurse in cardiology, on 06/16/2025 and was advised to keep the appointmentwith the colorist dyer this coming Friday. The report was sent to the colorist dyer because they thought it was a lung issue. She is currently on amoxicillin and a rinse for bleeding gums noticed by her dentist. She started the amoxicillin as soon as she got it, but she does not remember when that was. Her last dose was this afternoon. Her sister requested an examination of her pacemaker wound, suspecting it may no longer require bandaging. The patient, however, remains uncertain about this. ROS: Review of Systems Respiratory: Positive for shortness of breath. VITAL SIGNS: BP Readings from Last 3 Encounters: 05/17/25 170/76 04/26/25 121/70 03/30/25 (!) 152/100 Wt Readings from Last 3 Encounters: 04/26/25 111 lb 4.8 oz (50.5 kg) 03/30/25 118 lb (53.5 kg) 03/17/25 119 lb (54 kg) Vitals: 05/17/25 1031 BP: 170/76 BP Location: Right Arm BP Position: Sitting BP Cuff Size: Regular Pulse: 60 Resp: 12 Temp: 97 ??F (36.1 ??C) TempSrc: Temporal SpO2: 98% There is no height or weight on file to calculate BMI. PHYSICAL EXAM: Physical Exam Vitals reviewed. HENT: Nose: No congestion. Mouth/Throat: Mouth: Mucous membranes are moist. Pharynx: No oropharyngeal exudate or posterior oropharyngeal erythema. Eyes: Extraocular Movements: Extraocular movements intact. Cardiovascular: Rate and Rhythm: Regular rhythm. Heart sounds: Normal heart sounds. Pulmonary: Comments: No retractions Increased SOB with talking Lung sounds are distant Musculoskeletal: Comments: In wheelchair LEFT hand swelling; mild Little to no lower leg swelling Skin: Comments: Pacer site LEFT is scabbed over and healing great Neurological: Mental Status: She is alert. Mental status is at baseline. Psychiatric: Mood and Affect: Mood normal. Labs/Studies Reviewed: Lab Results Component Value Date WBC 8.42 03/01/2025 HEMOGLOBIN 15.1 03/01/2025 PLATELETCNT 233 03/01/2025 MCV 83.8 03/01/2025 Lab Results Component Value Date SODIUM 137 09/16/2023 POTASSIUM 4.3 09/16/2023 CHLORIDE 101 09/16/2023 CO2VEN 27 09/16/2023 ANIONGAP 13.3 09/16/2023 GLUCOSE 80 09/16/2023 BUN 20 09/16/2023 CREATININE 0.92 09/16/2023 BCRATIO8 22 (H) 09/16/2023 TOTALPROTEIN 7.8 09/16/2023 ALBUMIN 4.4 09/16/2023 CALCIUM 10.1 09/16/2023 TBIL 0.6 09/16/2023 SGOTAST 26 09/16/2023 SGPTALT 19 09/16/2023 ALKALINEPHO 127 09/16/2023 GFRNA >60 09/16/2023 GFRA >60 09/16/2023 No results found for: TSH No results found for: HGBA1C No results found for: CHOLESTEROL, TRIGLYCRIDES, HDLCHOLESTE, LDL No results found for: PSASCREEN, PSA, PSAFREE, PSAPCNTFREE, PSATOTAL @MAMMOFINDINGS@ No results found. Recent Procedure Details No resulted procedures found. Results Imaging - Chest x-ray: Congestive heart failure and a possible pneumonia. FOLLOWUP: Follow-up Information Return for worsening symptoms or if symptoms fail to improve. LOS Today OFFICE/OP EST LVL 3 LOW MDM/20-29 MIN Past medical, surgical, social and family history has been reviewed and updated as necessary. Medications and allergies has been reviewed and updated. I discussed all new medications and potential side effects or risks associated with them. Patient is to contact our office with any concerns. Patient instructions and educational materials were given to the patient. Patient (or patient dental detail representative) demonstrates verbal understanding of instructions given. Patient should follow up with their PCP for general health maintenance needs. Patient should contact our office if their problems persist or call 911/go the to ER if issues become more persistent. If any referrals have been made, patient should contact our office with in 3-5 days if they have not heard anything from our referral team or the referring physician. OL PROGRAM DIRECTOR documented in this encounter Plan of Treatment Upcoming Encounters Date Type Department Care Team (Late st Contact Info) Description 05/26/2025 2:00 PM SCHOOL PROGRAM DIRECTOR Office Visit [facility] - Primary Care - [place] [address] [place] [address] Nati Garcia PAC [address] [place] [address] 10/25/2025 11:00 AM CDT Office Visit [facility] Oncology Services [address] [place] [address] Hector Rendon MD [address] [place] [address] Discharge Disposition: Discharged to home or Selfcare 10/25/2025 11:30 AM CDT Clinical Support [facility] [address] [place] [address] Hector Rendon MD [address] [place] [address] Discharge Disposition: Discharged to home or Selfcare documented as of this encounter Goals Goal Patient Goal Type Associated Problems Recent Progress Patient-Stated? Author Healthy Lifestyle Healthy Lifestyle Carolyn Olivo, RN Note: Pace/increase activity documented as of this encounter Visit Diagnoses Diagnosis Shortness of breath- Primary Chronic heart failure with preserved ejection fraction documented in this encounter Additional Health Concerns Assessment Noted Time PHQ-9 Depression Total Score: 5 09/28/19 25 11:34 AM CDT documented as of this encounter Care Teams Fixture Designer Relationship Specialty Start Date End Date Jose Nati OcampoDEEDEE #2 [facility] [address] [place] [address] PCP - General Physician Keyboard Teacher 03/24/24 Juan David Ashby MD Consulting Physician General Surgery 12/27/19 Hector Rendon MD [address] [place] [address] Consulting Physician Medical Oncology 12/27/19 Rohit Cardoso MD [address] [place] [address] Consulting Physician Radiation Oncology 12/27/19 Sung Do MD [address] [address] Consulting Physician Cardiovascular Disease - Cardiology 12/28/19 Shawn Alves MD #[address] [address] Consulting Physician Colon and Rectal Surgery 05/10/22 documented as of this encounter
--- OUTSIDE RECORDS SUMMARY | 2025-05-17 10:30 | XMS_ITS | Encounter Summary ---
Author Organization [facility] Address [address] [place] [address] Phone Care Team Providers Care Processor Solid Propellant Name Role Phone Juan David Ashby MD Unavailable Hector Rendon MD Unavailable [phone] Rohit Cardoso MD Unavailable Sung Do MD Unavailable Shawn Alves MD Unavailable Nati Garcia Primary Care Pro vider Reason for Visit * Reason Comments Hypertension 1 mo follow up Encounter Details Date Type Department Care Team (Late st Contact Info) Description 05/17/2025 10:30 AM ENTRY SPECIALIST Office Visit [facility] - Primary Care - [place] [address] [place] [phone] Nati Garcia PAC [address] [place] [address] Shortness of breath (Primary Dx); Chronic heart failure with preserved ejection fraction Discharge Disposition: Discharged to home or Selfcare Social History Tobacco Use Types Packs/Day Years Used Date Smoking Tobacco: Never Smokeless Tobacco: Never Tobacco Cessation:Counseling Given: No Alcohol Use Standard Drinks/Week Comments Not Currently 0 (1 standard drink = 0.6 oz pur e alcohol) Occasionally on holidays. 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 Drug use: Never Y SPECIALIST * Nati Garcia, DEEDEE - 05/17/2025 10:30 [...] chloride. She has an appointment with her bus attendant on 06/16/2025. - She is advised to [...] to air dry. She is going to [place] ER due to her CHF exacerbation, possible [...] On Friday, she was seen by the bus attendant due to trouble breathing and swelling in her ankles, hand, and arm. An x-ray was performed, and the nurse sent a message last night indicating it was concerning. The report was sent to the burial vault maker. The bus attendant noted sounds in her right lung that sounded congested. She is currently on furosemide 10 mg, taking 2 pills in the morning and 1 in the evening at least 6 hours apart, and potassium chloride. She has another appointment with Vero, advanced practice nurse in cardiology, on 06/16/2025 and was advised to keep the appointmentwith the burial vault maker this coming Friday. The report was sent to the burial vault maker because they thought it was a lung [...] given to the patient. Patient (or patient outbound call center representative) demonstrates verbal understanding of instructions given. [...] our referral team or the referring physician. Y SPECIALIST documented in this encounter Plan of Treatment Upcoming Encounters Date Type Department Care Team (Late st Contact Info) Description 05/26/2025 2:00 PM ENTRY SPECIALIST Office Visit [facility] - Primary Care - [place] [address] [place] [address] Nati Garcia PAC [address] [place] [address] 10/25/2025 11:00 AM CDT Office Visit [facility] Services [address] [place] [address] Hector Rendon MD [address] [place] [address] Discharge Disposition: Discharged to home or Selfcare 10/25/2025 11:30 AM CDT Clinical Support [facility] [address] [place] [address] Hector Rendon MD [address] [place] [address] Discharge Disposition: Discharged to home or Selfcare [...] documented as of this encounter Care Teams Processor Solid Propellant Relationship Specialty Start Date End Date Jose Nati OcampoDEEDEE #2 [facility] [address] [place] [address] PCP - General Physician Model Technician 03/24/24 Juan David Ashby MD Consulting Physician General Surgery 12/27/19 Hector Rendon MD [address] [place] [address] Consulting Physician Medical Oncology 12/27/19 Rohit Cardoso MD [address] [place] [address] Consulting Physician Radiation Oncology 12/27/19 Sung Do MD [address] [address] Consulting Physician Cardiovascular Disease - Cardiology 12/28/19 Shawn Alves MD #[address] [address] Consulting Physician Colon and Rectal Surgery 05/10/22 documented as of this encounter
--- OUTSIDE RECORDS SUMMARY | 2025-05-17 12:15 | XMS_ITS | Encounter Summary ---
Author Organization [facility] Address [address] [place] [address] Phone Care Team Providers Care Section Leader Screen Printing Name Role Phone Symone Juan David Fisher MD Unavailable Hector Rendon MD Unavailable Rohit Cardoso MD Unavailable [phone] Sung Do MD Unavailable Silvano Byrne MD Primary Care Provider Shawn Alves MD Unavailable Nati Garcia [facility] Primary Care Pro vider Reason for Visit * Reason Onset Date Comments Medication Refill 06/19/2020 Encounter Details Date Type Department Care Team (Late st Contact Info) Description 06/19/2020 Refill [facility] [address] [place] [address] Silvano Byrne MD [address] [place] [address] Medication Refill Social History Tobacco Use Types [...] Start Date 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 No / Unsure 06/20/2020 11:26 AM STRATEGIC INSIGHTS LEAD documented as of this encounter Miscellaneous Notes [...] Visits 3 weeks ago Nonischemic cardiomyopathy (HCC) [facility] - Family Medicine - Silvano Longo MD 3 months ago Chronic combined systolic and diastolic congestive heart failure (HCC) [facility] Medical [facility] Family Medicine - Silvano Longo MD Upcoming Appointments Future Appointments Today Hector Rendon MD [facility] Oncology Services, [facility] In 1 week Rohit Cardoso MD [facility] Services, [facility] ESCROW OFFICER - Recent and Past Visits Recent Visits Date Type Provider Dept 05/29/20 Office Visit Silvano Byrne MD [facility] 02/25/20 Office Visit Silvano Byrne MD [facility] Showing recent visits within past 460 days with a meds authorizing provider and meeting all other requirements Future Appointments No visits were found meeting these conditions. Showing future appointments within next 90 days with a meds authorizing provider and meeting all other requirements Passed - Last BP in normal range BP Readings from Last 1 Encounters: 05/29/20 100/62 TEGIC INSIGHTS LEAD * Telephone Encounter - Donita Callejas - [...] scripts) 1 Pharmacy preference for this medication: [facility]/pharmacy #[id number] Outcome: []Medication pended, routed to surescripts []Medication refused []Informed caller of refills at pharmacy []Additional message to medication management RN []Verbal authorization for written order to pharmacy []Additional message to provider []Verified medication with pharmacy Donita Medication Management TEGIC INSIGHTS LEAD documented in this encounter Plan of Treatment Upcoming Encounters Date Type Department Care Team (Late st Contact Info) Description 05/26/2025 2:00 PM STRATEGIC INSIGHTS LEAD Office Visit [facility] - Primary Care - [place] [address] [place] [address] Nati Garcia, [facility] [address] [place] [address] 10/25/2025 11:00 AM CDT Office Visit [facility] [address] [place] [phone] Hector Rendon MD [address] [place] [address] Discharge Disposition: Discharged to home or Selfcare 10/25/2025 11:30 AM CDT Clinical Support [facility] [address] [place] [phone] Hector Rendon MD [address] [place] [address] Discharge Disposition: Discharged to home or Selfcare documented as of this encounter Visit Diagnoses Not on filedocumented in this encounter Care Teams Section Leader Screen Printing Relationship Specialty Start Date End Date Silvano Byrne MD [address] [address] PCP - General Family Medicine 02/25/20 03/23/24 Nati Garcia, [facility] [address] [address] PCP - General Physician Aquaculture Director 03/24/24 Juan David Ashby MD Consulting Physician General Surgery 12/27/19 [place] [address] [place] [address] Consulting Physician Medical Oncology 12/27/19 Rohit Cardoos MD [address] [place] [address] Consulting Physician Radiation Oncology 12/27/19 Sung Do MD [address] [facility] [address] [place] [address] Consulting Physician Cardiovascular Disease - Cardiology 12/28/19 Shawn Alves MD #[address] [address] Consulting Physician Colon and Rectal Surgery 05/10/22 documented as of this encounter
--- OUTSIDE RECORDS SUMMARY | 2025-05-17 12:15 | XMS_ITS | Encounter Summary ---
Author Organization [facility] Address [address] [place] [address] Phone Care Team Providers Care Hide Inspector Name Role Phone SymoneJuan David MD Unavailable Hector Rendon MD Unavailable [phone] Rohit Cardoso MD Unavailable [phone] Sung Do MD Unavailable Silvano Byrne MD Primary Care Provider [phone] Shawn Alves MD Unavailable Nati Garcia [facility] Primary Care Pro vider Encounter Details Date Type Department Care Team (Late st Contact Info) Description 11/26/2023 Telephone [facility] [address] [place] [phone] Silvano Byrne MD [address] [place] [address] Social History Tobacco Use Types Packs/Day Years [...] Date 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 Not on file Not on file No t on file documented as of this encounter Plan of Treatment Upcoming Encounters Date Type Department Care Team (Late st Contact Info) Description 05/26/2025 2:00 PM CLOTH COVERED HELMET PULLER Office Visit [facility] - Primary Care - [place] [address] [place] [address] Nati Garcia, [facility] [address] [place] [address] 10/25/2025 11:00 AM CDT Office Visit [facility] Oncology Services [address] [place] [address] Hector Rendon MD [address] [place] [address] Discharge Disposition: Discharged to home or Selfcare 10/25/2025 11:30 AM CDT Clinical Support [facility] Oncology Services [address] [place] [address] Hector Rendon MD [address] [place] [address] Discharge Disposition: Discharged to home or Selfcare documented as of this encounter Goals Goal Patient Goal Type Associated Problems Recent Progress Patient-Stated? Author Healthy Lifestyle Healthy Lifestyle No Yony Carolyn K, RN Note: Pace/increase activity documented as of this encounter Visit Diagnoses Not on filedocumented in this encounter Additional Health Concerns Assessment Noted Time PHQ-9 Depression Total Score: 0 04/06/20 21 10:00 AM CDT documented as of this encounter Care Teams Hide Inspector Relationship Specialty Start Date End Date Silvano Byrne MD [address] [facility] [address] [place] [address] PCP - General Family Medicine 02/25/20 03/23/24 Nati Garcia PAC [address] [address] PCP - General Physician Senior Hr Business Partner 03/24/24 Juan David Ashby MD Consulting Physician General Surgery 12/27/19 Hector Rendon MD [address] [place] [address] Consulting Physician Medical Oncology 12/27/19 Rohit Cardoso MD [address] [place] [address] Consulting Physician Radiation Oncology 12/27/19 Sung Do MD [address] [facility] [address] [place] [address] Consulting Physician Cardiovascular Disease - Cardiology 12/28/19 Shawn Alves MD #[address] [address] Consulting Physician Colon and Rectal Surgery 05/10/22 documented as of this encounter
--- OUTSIDE RECORDS SUMMARY | 2025-05-17 12:15 | XMS_ITS | Encounter Summary ---
Author Organization [facility] Address [address] [place] [address] Care Team Providers Care Manager Of Disaster Recovery Name Role Phone Jeremy Stinson MD Primary Care Provider + [phone] Sung Do MD Unavailable Mer Szymanski MD Primary Care Provider Sung Do MD Primary Care Provider + Silvano Byrne MD Primary Care Provider [phone] Saul Marquez MD Unavailable [phone] Nati Garcia Primary Care Prov ider Encounter Details Date Type Department Care Team (Late st Contact Info) Description 09/14/2018 Telephone [facility] Imaging and Radiology [address] [place] [address] [place] [address] [address] Social History Tobacco Use Types Packs/Day Years Used Date Smoking Tobacco: Never Smokeless Tobacco: Never Alcohol Use Standard Drinks/Week Comments No 0 (1 standard drink = 0.6 oz pur e alcohol) Comments No Sex and Gender Information Value Date Recorded Sex Assigned at Not on file Legal Sex Female 12:19 AM PARACHUTIST/COMBATANT DIVER QUALIFIED Gender Identity Not on file Sexual Orientation Not on file documented as of this encounter Plan of Treatment Not on file documented as of this encounter Visit Diagnoses Not on filedocumented in this encounter Care Teams Manager Of Disaster Recovery Relationship Specialty Start Date End Date Jeremy Stinson MD [address] [place] [address] PCP - General 11/06/16 04/29/19 Mer Szymanski MD [address] [place] [address] PCP - General Family Medicine 04/30/19 03/28/20 Sung Do MD [address] [place] [address] PCP - General Cardiology 03/29/20 03/29/20 Silvano Byrne MD [address] [address] PCP - General Family Medicine 03/30/20 10/13/24 Nati Garcia PA [address] [address] PCP - General Neurosurgery 10/14/24 Sung Do MD [address] [place] [address] Consulting Physician Cardiology 10/16/18 Saul Marquez MD [address] [address] Surgeon Orthopedic Surgery 08/28/21 documented as of this encounter
--- OUTSIDE RECORDS SUMMARY | 2025-05-17 12:15 | XMS_ITS | Encounter Summary ---
Author Organization [facility] Address [address] [place] [address] Phone Care Team Providers Care Fagot Heater Name Role Phone Symone Juan David Fisher MD Unavailable Hector Rendon MD Unavailable [phone] Rohit Cardoso MD Unavailable [phone] Sung Do MD Unavailable Silvano Byrne MD Primary Care Provider Shawn Alves MD Unavailable Nati Garcia [facility] Primary Care Pro vider Reason for Visit * Reason Comments Medication Refill Encounter Details Date Type Department Care Team (Late st Contact Info) Description 11/12/2020 [facility] [address] [place] [address] Hector Rendon MD [address] [place] [address] Medication Refill Social History Tobacco [...] Start Date 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 on file Not on file No t on file documented as of this encounter Miscellaneous Notes * Telephone Encounter - Radha Evans RN - 11/13/2020 8:14 AM CDT Refilled Letrozole documented in this encounter Plan of Treatment Upcoming Encounters Date Type Department Care Team (Late st Contact Info) Description 05/26/2025 2:00 PM DUAL RATE DEALER Office Visit [facility] [place] [facility] - Primary Care - [place] [address] [place] [address] Nati Garcia PAC [address] [place] [address] 10/25/2025 11:00 AM CDT [facility] [address] [place] [address] Hector Rendon MD [address] [place] [address] Discharge Disposition: Discharged to home or Selfcare 10/25/2025 11:30 AM CDT Clinical Support [facility] Oncology Services [address] [place] [address] Hector Rendon MD [address] [place] [address] Discharge Disposition: Discharged to home or Selfcare documented as of this encounter Visit Diagnoses Not on filedocumented in this encounter Care Teams Fagot Heater Relationship Specialty Start Date End Date Silvano Byrne MD [address] [facility] [address] [place] [address] PCP - General Family Medicine 02/25/20 03/23/24 Nati Garcia PAC [address] [address] PCP - General Physician Skin Care Technician 03/24/24 Juan David Ashby MD Consulting Physician General Surgery 12/27/19 Hector Rendon MD [address] [place] [address] Consulting Physician Medical Oncology 12/27/19 Rohit Cardoso MD [address] [place] [address] Consulting Physician Radiation Oncology 12/27/19 Sung Do MD [address] [facility] [address] [place] [address] Consulting Physician Cardiovascular Disease - Cardiology 12/28/19 Shawn Alves MD #[address] [address] Consulting Physician Colon and Rectal Surgery 05/10/22 documented as of this encounter
--- OUTSIDE RECORDS SUMMARY | 2025-05-17 12:15 | XMS_ITS | Encounter Summary ---
Author Organization [facility] Address [address] [place] [address] Care Team Providers Care Manager Dairy Name Role Phone Sung Do MD Unavailable [phone] Saul Marquez MD Unavailable [phone] Nati Garcai Primary Care Prov ider Encounter Details Date Type Department Care Team (Late st Contact Info) Description 04/05/2025 Results Follow-Up [facility] Cardiology [address] [place] [address] [place] [address] Rosa Tellez NP [address] [place] [address] Transthoracic Echo (TTE) Complete W [...] file Legal Sex Female 12:19 AM DOCUMENT PREPARATION SPECIALIST Gender Identity Not on file Sexual Orientation Not on file Occupation Industry Job Start Date Job End Date Retired Not on file Not on file Not on file documented as of this encounter Plan of Treatment Not on file documented as of this encounter Visit Diagnoses Not on filedocumented in this encounter Care Teams Manager Dairy Relationship Specialty Start Date End Date aNti Garcia PA [address] [address] PCP - General Neurosurgery 10/14/24 Sung Do MD Consulting Physician Cardiology 10/16/18 Saul Marquez MD Surgeon Orthopedic Surgery 08/28/21 documented as of this encounter
--- OUTSIDE RECORDS SUMMARY | 2025-05-17 12:15 | XMS_ITS | Encounter Summary ---
Author Organization [facility] Address [address] [place] [address] Phone Care Team Providers Care Accounts Adjustable Clerk Name Role Phone Symone Juan David Fisher MD Unavailable Hector Rendon MD Unavailable Rohit Cardoso MD Unavailable Sung Do MD Unavailable Silvano Byrne MD Primary Care Provider Shawn Alves MD Unavailable Nati Garcia [facility] Primary Care Pro vider Reason for Visit * Reason Comments Medication Refill Encounter Details Date Type Department Care Team (Late st Contact Info) Description 10/19/2023 Refill [facility] [address] [place] [phone] Silvano Byrne MD [address] [place] [address] Medication Refill Social History Tobacco Use Types [...] Start Date 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 on file Not on file No [...] Dept 05/26/23 Office Visit Silvano Byrne MD [facility] [place] 11/18/22 Office Visit Silvano Byrne MD [facility] Showing recent visits within past 365 days and meeting all other requirements Future Appointments Date Type Provider Dept 11/24/23 Appointment Lanie Sol, FINGERNAIL TECHNICIAN, FRUIT VENDOR [facility] Showing future appointments within next 90 days and meeting all other requirements documented in this encounter Plan of Treatment Upcoming Encounters Date Type Department Care Team (Late st Contact Info) Description 05/26/2025 2:00 PM TALENT BUYER Office Visit [facility] - Primary Care - [place] [facility] [place] [phone] Nati Garcia, [place] [address] [place] [address] 10/25/2025 11:00 AM CDT Office Visit [facility] Oncology Services [address] [place] [address] Hector Rendon MD [address] [place] [address] Discharge Disposition: Discharged to home or Selfcare 10/25/2025 11:30 AM CDT Clinical Support [facility] Oncology Services [address] [place] [address] Hector Rendon MD [address] [place] [address] Discharge Disposition: Discharged to home or Selfcare [...] documented as of this encounter Care Teams Accounts Adjustable Clerk Relationship Specialty Start Date End Date Silvano Byrne MD [address] [facility] [address] [place] [address] PCP - General Family Medicine 02/25/20 03/23/24 Nati Garcia, [place] [address] [address] PCP - General Physician Clinical Neuropsychologist 03/24/24 Juan David Ashby MD Consulting Physician General Surgery 12/27/19 Hector Rendon MD [address] [place], [place] [address] Consulting Physician Medical Oncology 12/27/19 Rohit Cardoso MD [address] [place], [place] [address] Consulting Physician Radiation Oncology 12/27/19 Sung Do MD [address] [address] Consulting Physician Cardiovascular Disease - Cardiology 12/28/19 Shawn Alves MD #[address] [address] Consulting Physician Colon and Rectal Surgery 05/10/22 documented as of this encounter
--- OUTSIDE RECORDS SUMMARY | 2025-05-17 12:15 | XMS_ITS | Clinical Summary ---
Author Organization [facility] Address [facility] [place] [address] Care Team Providers Care Deburrer Machine Name Role Phone MiladcathieRosalee ennis MD Unavailable [phone] Jan Marcelo MD Unavailable Nati Garcia Primary Care Provider [phone] Russell Phelan MD Unavailable [phone] Allergies Active Allergy Reactions Criticality Noted Date [...] pacemaker 12/07/2024 Cardiac resynchronization th erapy pacemaker (CHARGE PREPARATION TECHNICIAN-P) in place 03/19/2024 Anemia 09/10/2021 Essential hypertension 09/10/2021 Osteoarthritis of right hip 09/10/2021 Status post partial mastectomy of right breast 0 03/30/2020 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 She received radiation therapy at [place] with what from her description sounded like [...] (12/06/2024): Added automatically from request for surgery [id number] Acquired hypothyroidism 07/30/2008 Overview (12/06/2024): Hypothyroidism (acquired) [...] drink = 0.6 oz pur e alcohol) [facility] Utilities Answer Date Recorded In the past 12 months has e Flynn, gas, oil, or water [employer] threatened to shut off services in your [...] any time in the past 12 [facility], were you homeless or living in a detention (including now)? No 12/07/2024 Comments Unknown Sex [...] Recommended Domains Addressed Status Status Reason/Outcome Date/Time [facility] Depression, Stress Recommended 01/18/2025 2:51 AM CDT [facility] ([facility]) [facility] Resource [place] in [facility] Services Depression, Stress Recommended 01/18/2025 2:51 AM CDT from Last 12 Months Medical Devices Implanted Type Area Customer Manager Device Identifier Shelf Expiration Date Model / Serial / Lot Medtronic Micra Av2-12/09/2024 Implanted:Qty: 1 on 12/09/2024 by Jan Marcelo MD Generator [employer] CARDIAC RHYTHM AND HEART FAILURE - DIV M 03/20/2026 [id number] / [id number] / Description:DX: CHB/ Pacemak er Dependant Explanted Type Area Customer Manager Device Identifier Shelf Expiration Date Model / Serial / Lot Phoenix Ra-10/15/2018 Implanted:05/2019 (Quantity not on file) Explanted:Qty : 1 on 12/09/2024 by Jan Marcelo MD Lead Implant [employer] 2088TC-46 / [id number] / Description:Tendril Phoenix Rv-10/15/2018 Implanted:05/2019 (Quantity not on file) Explanted:Qty : 1 on 12/09/2024 by Jan Marcelo MD Lead Implant [employer] 2088TC-52 / [id number] / Phoenix Lv-10/15/2018 Implanted:05/2019 (Quantity not on file) Explanted:Qty : 1 on 12/09/2024 by Jan Marcelo MD Lead Implant [employer] 1458Q-[id number] / [id number] / Phoenix Quadra Allure Bi-V- 5 Implanted: by Rosalee Osullivan MD (Quantity not on file) Explanted:Qty : 1 on 12/09/2024 by Jan Marcelo MD Pacemaker [employer] [id number] / [id number] / Description:DX: SSS Procedures Procedure Name Priority Date/Time Associated Diagnosis Comments HC OCCULT BLOOD FECAL SCRN Routine 12/21/2024 7:35 AM CDT from Last 3 Months or Most Recently Relevant to Health Maintenance Results * OCCULT BLOOD, FECES, SCREENING (12/21/2024 7:35 AM CDT) OCCULT BLOOD SCREEN NEGATIVE NEGATIVE 12/21/2024 8:30 AM CDT [facility] STOOL SPECIMEN / Unknown 12/21/2024 7:35 AM CDT us Nickie Marie NP BODY FLUIDS AND STOOLS ORDERABL ES Final Result [facility] [address] [place] [address], from Last 3 Months or Most Recently Relevant to Health Maintenance Insurance [employer] MEDICARE Advance Directives Documents on File Type Date Recorded Patient Roughener Expl anation Advance Directives and Livin g Will 12/23/2024 12:45 PM Advance Directives and Livin g Will 12/23/2024 12:45 PM * DNR (Latest Code Status on File) Date Activated Date Inactivated Comments 12/17/2024 4:09 PM 01/24/2025 12:26 PM * Full Code Date Activated Date Inactivated Comments 12/07/2024 1:03 PM 12/17/2024 2:34 PM Care Teams Deburrer Machine Relationship Specialty Start Date End Date Nati Garcia PA [address] [place] [address] PCP - General PHYSICIAN GAMBLING COUNSELLOR 12/07/24 Rosalee Osullivan MD [address] [place] [address] CARDIOVASCULAR DISEASE 12/07/24 Jan Marcelo MD [address] [place] [address] Consulting Physician CLINICAL CARDIAC ELECTROPHYSIOLOGY 12/07/24 Russell Phelan MD [address] [facility] [address] [place], [place] [address] Consulting Physician RADIOLOGY 01/20/25 01/20/26
--- OUTSIDE RECORDS SUMMARY | 2025-05-17 12:15 | XMS_ITS ---
Author Organization [facility] Address [address] [place] [address] Care Team Providers Care Ekg/Ecg Technician Name Role Phone Sung Do MD Unavailable [phone] Saul Marquez MD Unavailable Nati Garcia Primary Care Prov ider Active Problems Problem Noted Date Diagnosed Date Cardiac pacemaker in situ 02/09/2025 Overview (02/09/2025): Medtronic Micra AV2 Leadless Pacemaker. Dx; CHB. DOI 12/09/2024-[place], [place]. [facility]link remote. Cardiac resynchronization th erapy pacemaker (HR ASSOCIATE-P) in place 03/19/2024 Aftercare following right hip [...] fan radiation, radiotherapy in 1975 at [facility] in the management of Hodgkin's disease. Records were unavailable. Right partial breast radiotherapy, 50.4 Gy in 28 fractions, from 01/10/2020 thru 02/16/2020. Carcinoma of upper-outer sonia drant of right breast in female, estrogen receptor positive 12/08/2019 Overview (03/30/2020): Pathological stage IA ER/MD positive, HER2 negative an Oncotype DX score [...] stage unknown. She received radiation therapy at [place] with what from her description sounded like [...] (09/16/2018): Added automatically from request for surgery [id number] Dizziness 07/09/2018 H/O sinus bradycardia 04/16/2018 Pleural [...]
--- OUTSIDE RECORDS SUMMARY | 2025-05-17 12:15 | XMS_ITS | Encounter Summary ---
Author Organization [facility] Address [address] [place] [address] Phone Care Team Providers Care Computing Services Director Name Role Phone SymoneJuan David MD Unavailable Hector Rendon MD Unavailable Rohit Cardoso MD Unavailable Sung Do MD Unavailable Silvano Byrne MD Primary Care Provider Shawn Alves MD Unavailable Nati Garcia [facility] Primary Care Pro vider Reason for Visit * Reason Comments Medication Refill Encounter Details Date Type Department Care Team (Late st Contact Info) Description 04/14/2022 Refill [facility] - [place] Guido Staples [address] [place] [address] Silvano Byrne MD [address] [place] [address] Medication Refill Social History Tobacco Use Types [...] 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 Oncology Services [address] [place] [address] Hector Rendon MD [address] [place] [address] Discharge Disposition: Discharged to home or Selfcare 10/25/2025 11:30 AM CDT Clinical Support [facility] Oncology Services [address] [place] [address] Hector Rendon MD [address] [place] [address] Discharge Disposition: Discharged to home or Selfcare [...] documented as of this encounter Care Teams Computing Services Director Relationship Specialty Start Date End Date Silvano Byrne MD [address] [facility] [address] [place] [address] PCP - General Family Medicine 02/25/20 03/23/24 Nati Garcia PAC [address] [address] PCP - General Physician Slime Plant Operator 03/24/24 Juan David Ashby MD Consulting Physician General Surgery 12/27/19 Hector Rendon MD [address] [place] [address] Consulting Physician Medical Oncology 12/27/19 Rohit Cardoso MD [address] [place] [address] Consulting Physician Radiation Oncology 12/27/19 Sung Do MD [address] [facility] [address] [place] [address] Consulting Physician Cardiovascular Disease - Cardiology 12/28/19 Shawn Alves MD [address] [address] Consulting Physician Colon and Rectal Surgery 05/10/22 documented as of this encounter
--- OUTSIDE RECORDS SUMMARY | 2025-05-17 12:15 | XMS_ITS | Encounter Summary ---
Author Organization [facility] Address [address] [place] [address] Care Team Providers Care Etl Consultant Name Role Phone Priya Gallego MD Primary Care Provider + Encounter Details Date Type Department Care Team (Late st Contact Info) Description 11/11/2019 Lab Requisition [facility] [address] [place] [address] Michael Vidales MD Social History Tobacco Use Types Packs/Day Years Used Date Smoking Tobacco: Never Assessed Comments Unknown Sex and Gender Information Value Date Recorded Sex Assigned at Not on file Legal Sex Female 6:30 AM PREFLIGHT MECHANIC Gender Identity Not on file Sexual Orientation [...] Not detected, Invalid 11/11/2019 9:50 PM CDT [facility] MICROBIOLOGY Microbiology SPECIMEN FROM NASOPHARYNGEAL STRUCTURE / Unknown Collection / Unknown 11/11/2019 6:14 AM CDT 11/11/2019 12:53 PM CDT Narrative [facility] MICROBIOLOGY - 11/11/2019 9:50 PM CDT This Real Time RT-PCR assay was developed and its performance characteristics determined by [facility]. This test has been authorized [...] LAB - MICROBIOLOGY ORDERABL ES Final Result [facility]CRO[facility]OLOG[facility] [address] [place], [place] [address], [facility] [phone] documented in this encounter Visit Diagnoses Not on filedocumented in this encounter Care Teams Etl Consultant Relationship Specialty Start Date End Date Priya Gallego MD [address] [place] [address] PCP - General 12/05/17 documented as of this encounter
--- OUTSIDE RECORDS SUMMARY | 2025-05-17 12:15 | XMS_ITS | Encounter Summary ---
Author Organization [facility] Address [address] [place] [address] Phone Care Team Providers Care Test Designer Name Role Phone SymoneJuan David MD Unavailable Hector Rendon MD Unavailable [phone] Rohit Cradoso MD Unavailable [phone] Sung Do MD Unavailable Silvano Byrne MD Primary Care Provider Shawn Alves MD Unavailable Nati Garcia 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 Showing future appointments within next 90 days and meeting all other requirements documented in this encounter Plan of Treatment Upcoming Encounters Date Type Department Care Team (Late st Contact Info) Description 05/26/2025 2:00 PM DIAMOND SETTER Office Visit [facility] - Primary Care - [place] [address] [place] [address] Nati Garcia, DEEDEE [address] [place] [address] 10/25/2025 11:00 AM CDT Office Visit [facility] [address] [place] [address] Hector Rendon MD [address] [place] [address] Discharge Disposition: Discharged to home or Selfcare 10/25/2025 11:30 AM CDT Clinical Support [facility] [address] [place] [phone] Hector Rendon MD [address] [place] [address] Discharge Disposition: Discharged to home or Selfcare documented as of this encounter Visit Diagnoses Not on filedocumented in this encounter Care Teams Test Designer Relationship Specialty Start Date End Date Silvano Byrne MD [address] [address] PCP - General Family Medicine 02/25/20 03/23/24 Nati Garcia, PAC #[address] [address] PCP - General Physician Psychiatric Cns 03/24/24 Juan David Ashby MD Consulting Physician General Surgery 12/27/19 Hector Rendon MD [address] [place] [address] Consulting Physician Medical Oncology 12/27/19 Rohit Cardoso MD [address] [place] [address] Consulting Physician Radiation Oncology 12/27/19 Sung Do MD [address] [address] Consulting Physician Cardiovascular Disease - Cardiology 12/28/19 Shawn Alves MD [address] [address] Consulting Physician Colon and Rectal Surgery 05/10/22 documented as of this encounter
--- OUTSIDE RECORDS SUMMARY | 2025-05-17 12:15 | XMS_ITS | Encounter Summary ---
Author Organization [facility] Healthcare Address [address] [place] [address] Care Team Providers Care Housekeeper Supervisor Name Role Phone Jeremy Stinson MD Primary Care Provider [phone] Sung Do MD Unavailable Mer Szymanski MD Primary Care Provider Sung Do MD Primary Care Provider + Silvano Byrne MD Primary Care Provider [phone] Saul Marquez MD Unavailable [phone] Nati Garcia Primary Care Prov ider Encounter Details Date Type Department Care Team (Late st Contact Info) Description 10/20/2018 Telephone [facility] Cardiac Testing [address] [place] [address] Rowan Correa RN Social History Tobacco Use Types Packs/Day Years Used Date Smoking Tobacco: Never Smokeless Tobacco: Never Alcohol Use Standard Drinks/Week Comments No 0 (1 standard drink = 0.6 oz pur e alcohol) Comments No Sex and Gender Information Value Date Recorded Sex Assigned at Not on file Legal Sex Female 12:19 AM MAINTENANCE MAN Gender Identity Not on file Sexual Orientation [...] on filedocumented in this encounter Care Teams Housekeeper Supervisor Relationship Specialty Start Date End Date Jeremy Stinson MD [address] [place] [address] PCP - General 11/06/16 04/29/19 Mer Szymanski MD [address] [place] [address] PCP - General Family Medicine 04/30/19 03/28/20 Sung Do MD [address] [place] [address] PCP - General Cardiology 03/29/20 03/29/20 Silvano Byrne MD [address] [facility] [address] [address] PCP - General Family Medicine 03/30/20 10/13/24 Nati Garcia PA [address] [facility] [place] [address] [address] PCP - General Neurosurgery 10/14/24 Sung Do MD [address] [place] [address] Consulting Physician Cardiology 10/16/18 Saul Marquez MD [address] [address] Surgeon Orthopedic Surgery 08/28/21 documented as of this encounter
--- OUTSIDE RECORDS SUMMARY | 2025-05-17 12:15 | XMS_ITS | Encounter Summary ---
Author Organization [facility] Address [address] [place] [address] Phone Care Team Providers Care Cafe Or Restaurant Manager Name Role Phone SymoneJuan David MD Unavailable Hector Rendon MD Unavailable [phone] Rohit Cardoso MD Unavailable [phone] Sung Do MD Unavailable Silvano Byrne MD Primary Care Provider Shawn Alves MD Unavailable Nati Garcia [facility] Primary Care Pro vider Reason for Visit * Reason Comments Medication Refill Encounter Details Date Type Department Care Team (Late st Contact Info) Description 07/09/2020 Refill [facility] [address] [place] [address] Silvano Byrne MD [address] [place] [address] Medication Refill Social History Tobacco Use Types [...] Start Date 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 No / Unsure 07/10/2020 1:19 PM NUMERICAL CONTROL OPERATOR documented as of this encounter Miscellaneous Notes [...] 6 days ago New onset of headaches [facility] - Family Medicine - Silvano Longo MD 1 month ago Nonischemic cardiomyopathy (HCC) [facility] - Silvano Longo MD 4 months ago Chronic combined systolic and diastolic congestive heart failure (HCC) [facility] - Silvano Longo MD Upcoming Appointments Future Appointments Today [facility], [facility] In 2 months Ankita Villafuerte APN, NATURAL SCIENCES DEPARTMENT CHAIR [facility] Oncology Services, [facility] In 2 months [facility] CC INFUSION CHR3 [facility] Oncology Services, [facility] SOCIAL SERVICES SPECIALIST - Recent and Past Visits Recent Visits Date Type Provider Dept 07/04/20 Office Visit Silvano Byrne MD [facility] 05/29/20 Office Visit Silvano Byrne MD [facility] 02/25/20 Office Visit [facility] [place] Showing recent visits within past 460 days with a meds authorizing provider and meeting all other requirements Future Appointments No visits were found meeting these conditions. Showing future appointments within next 90 days with a meds authorizing provider and meeting all other requirements Passed - Last BP in normal range BP Readings from Last 1 Encounters: 07/04/20 112/60 RICAL CONTROL OPERATOR documented in this encounter Plan of Treatment Upcoming Encounters Date Type Department Care Team (Late st Contact Info) Description 05/26/2025 2:00 PM NUMERICAL CONTROL OPERATOR Office Visit [facility] - Primary Care - [place] [address] [place] [id number] Nati Garcia, DEEDEE [address] [place] [address] 10/25/2025 11:00 AM CDT Office Visit [facility] On[facility] Services [address] [place] [phone] Hector Rendon MD [address] [place] [address] Discharge Disposition: Discharged to home or Selfcare 10/25/2025 11:30 AM CDT Clinical Support [facility] [address] [place] [id number] Hector Rendon MD [address] [place] [address] Discharge Disposition: Discharged to home or Selfcare documented as of this encounter Visit Diagnoses Not on filedocumented in this encounter Care Teams Cafe Or Restaurant Manager Relationship Specialty Start Date End Date Silvano Byrne MD [address] [facility] [facility] [address] [place] [address] PCP - General Family Medicine 02/25/20 03/23/24 Nati Garcia PAC [address] [address] PCP - General Physician Camera Prototyping Engineer 03/24/24 Juan David Ashby MD Consulting Physician General Surgery 12/27/19 Hector Rendon MD [address] [place] [address] Consulting Physician Medical Oncology 12/27/19 Rohit Cardoso MD [address] [place] [address] Consulting Physician Radiation Oncology 12/27/19 Sung Do MD [address] [facility] [facility] [address] [place] [address] Consulting Physician Cardiovascular Disease - Cardiology 12/28/19 Shawn Alves MD [address] [address] Consulting Physician Colon and Rectal Surgery 05/10/22 documented as of this encounter
--- OUTSIDE RECORDS SUMMARY | 2025-05-17 12:15 | XMS_ITS | Encounter Summary ---
Author Organization [facility] Address [address] [place] [address] Care Team Providers Care Pick Pulling Machine Operator Name Role Phone Jeremy Stinson MD Primary Care Provider [phone] Jeremy Stinson MD Primary Care Provider [phone] Jeremy Stinson MD Primary Care Provider [phone] Antoinette Thomas MD Primary Care Prov ider Jeremy Stinson MD Primary Care Provider + [phone] Sung Do MD Unavailable [phone] Mer Szymanski MD Primary Care Provider Sung Do MD Primary Care Provider + Silvano Byrne MD Primary Care Provider [phone] Saul Marquez MD Unavailable [phone] Nati Garcia Primary Care Prov ider Encounter Details Date Type Department Care Team (Late st Contact Info) Description 08/23/2016 Orders Only [facility] Provider, Historical, MD [address] [place] [address] Social History Tobacco Use Types Packs/Day Years Used Date Smoking Tobacco: Never Alcohol Use Standard Drinks/Week Comments No 0 (1 standard drink = 0.6 oz pur e alcohol) Comments Unknown Sex and Gender Information Value Date Recorded Sex Assigned at Not on file Legal Sex Female 12:19 AM TIME MOTION ANALYST Gender Identity Not on file Sexual Orientation [...] on filedocumented in this encounter Care Teams Pick Pulling Machine Operator Relationship Specialty Start Date End Date Jeremy Stinson MD [address] [place] [address] PCP - General 10/04/16 10/28/16 Jeremy Stinson MD [address] [place] [address] PCP - General 08/29/16 10/03/16 Jeremy Stinson MD [address] [place] [address] PCP - General 12/11/06 08/28/16 Antoinette Thomas MD [address] [place] [address] PCP - General 10/29/16 11/05/16 Jeremy Stinson MD [address] [place] [address] PCP - General 11/06/16 04/29/19 Mer Szymanski MD [address] [place] [address] PCP - General Family Medicine 04/30/19 03/28/20 Sung Do MD [address] [place] [address] PCP - General Cardiology 03/29/20 03/29/20 Silvano Byrne MD [address] [facility] [address] [address] PCP - General Family Medicine 03/30/20 10/13/24 Nati Garcia PA [address] [place] [address] [address] PCP - General Neurosurgery 10/14/24 Sung Do MD [address] [place] [address] Consulting Physician Cardiology 10/16/18 Saul Marquez MD [address] [facility] [address] [place] [address] Surgeon Orthopedic Surgery 08/28/21 documented as of this encounter
--- OUTSIDE RECORDS SUMMARY | 2025-05-17 12:15 | XMS_ITS | Clinical Summary ---
Author Organization [facility] Address [address] [place] [address] Care Team Providers Care Repairing Calibrator Name Role Phone Sung Do MD Unavailable [phone] Saul Marquez MD Unavailable [phone] Nati Garcia Primary Care Prov ider Allergies [...] total) by mouth nightly 04/26/20 25 Active potassium chloride ER (KLOR-CON) 20 mEq CR tablet Take 1 tablet (20 mEq total) by mouth daily 90 tablet 3 05/13/20 25 026 Active furosemide (LASIX) 20 mg tabletIndications :Pleural effusion associated with pulmonary infection Take 1 tablet (20 mg total) by mouth every morning 90 tablet 3 03/16/20 24 025 Discontinued furosemide (LASIX) 20 mg tabletIndications :Pleural effusion associated with pulmonary infection TAKE 1 TABLET BY MOUTH EVERY DAY IN THE MORNING 90 tablet 1 04/18/20 25 025 Discontinued(R eorder) furosemide (LASIX) 20 mg tabletIndications :Pleural effusion associated with pulmonary infection Take 1 tablet (20 mg total) by mouth every morning 90 tablet 1 04/20/20 25 025 Discontinued(R eorder) Active Problems Problem Noted Date Diagnosed Date Cardiac pacemaker in situ 02/09/2025 Overview (02/09/2025): Medtronic Micra AV2 Leadless Pacemaker. Dx; CHB. DOI 12/09/2024[place]. Carelink remote. Cardiac resynchronization th erapy pacemaker (OSTEOPATHIC MEDICINE TEACHER-P) in place 03/19/2024 Aftercare following right hip [...] total fan radiation, radiotherapy in 1975 at [facility] in the management of Hodgkin's disease. Records were unavailable. Right partial breast radiotherapy, 50.4 Gy in 28 fractions, from 01/10/2020 thru 02/16/2020. Carcinoma of upper-outer sonia drant of right breast in female, estrogen receptor positive 12/08/2019 Overview (03/30/2020): Pathological stage IA ER/HI positive, HER2 negative an Oncotype DX score [...] stage unknown. She received radiation therapy at [facility] with what from her description sounded like [...] (09/16/2018): Added automatically from request for surgery [id number] Dizziness 07/09/2018 H/O sinus bradycardia 04/16/2018 Pleural [...] Encounters Date Type Department Care Team Description 05/13/2025 Telephone [facility] Cardiology [address] [place] [address] Rosa Mathias NP 05/12/2025 2:00 PM HARNESS RACING HANDICAPPER Office Visit [facility] Cardiology [address] [place] [address] Rosa Mathias NP Nonischemic cardiomyopathy (HCC) (Primary Dx); Chronic heart failure with preserved ejection fraction; Lipid screening; S/P placement of leadless cardiac pacemaker; Deep vein thrombosis (DVT) of left upper extremity, unspecified chronicity, unspecified vein (HCC); History of mitral valve repair; Moderate aortic stenosis by prior echocardiogram 04/28/2025 Telephone [facility] Cardiology [address] [place] [address] [place] [address] Neto Nayak MD 04/20/2025 Telephone [facility] Cardiology [address] [place] [address] [place] [address] Rosa Mathias NP Medication Problem 04/14/2025 9:55 AM CDT Lab [address] [address] 04/14/2025 Telephone [facility] Cardiology [address] [place] [address] [place] [address] Rosa Mathias NP 04/05/2025 11:15 AM CDT Ancillary Procedure [place] [address] [place] [address] Nonischemic cardiomyopathy (HCC); History of mitral valve repair 04/05/2025 Results Follow-Up [place] [address] [place] [phone] Rosa Mathias NP Transthoracic Echo (TTE) Complete W Doppler/CF 03/31/2025 Telephone [facility] Cardiology [address] [place] [address] [place] [address] Vivek Ruiz MD 03/30/2025 Telephone [facility] Cardiology [address] [place] [address] [place] [phone] Rosa Mathias NP Foot Swelling; Joint Swelling 03/21/2025 10:30 AM CDT Orders Only [facility] [address] [place] [address] 03/10/2025 Telephone [facility] Cardiology [address] [facility] [address] [place] [address] [place] [address] Cedric Blake MD 03/08/2025 10:30 AM CDT Orders Only [facility] [address] [place] [address] 02/28/2025 10:30 AM CDT Orders Only [facility] [address] [place] [address] 02/21/2025 11:30 AM CDT Orders Only [facility] [address] [place] [address] 02/14/2025 2:00 PM CDT Orders Only [facility] [address] [place] [phone] from Last 3 Months Surgical History Surgery [...] lymph n odes of multiple sites (HCC) 1976 neck Hodgkin's disease (HCC) Anemia Anxiety Heart [...] on file Legal Sex Female 12:19 AM HARNESS RACING HANDICAPPER Gender Identity Not on file Sexual Orientation [...] Comments Blood Pressure 124/62 05/12/2025 2:03 PM HARNESS RACING HANDICAPPER Pulse 60 05/12/2025 2:03 PM HARNESS RACING HANDICAPPER Temperature 36.6 C (97.8 F) 01/26/2025 8:41 AM CDT Respiratory Rate 16 01/26/2025 8:41 AM CDT Oxygen Saturation 95% 05/12/2025 2:03 PM HARNESS RACING HANDICAPPER Inhaled Oxygen Concentration - - Weight 53.5 kg (118 lb) 05/12/2025 2:03 PM HARNESS RACING HANDICAPPER Height 162.6 cm (5' 4) 05/12/2025 2:03 PM HARNESS RACING HANDICAPPER Body Mass Index 20.25 05/12/2025 2:03 PM HARNESS RACING HANDICAPPER Plan of Treatment Health Maintenance Due Date [...] 07/02/2023, 02/29/2020 Medical Devices Implanted Type Area Site Medical Director Device Identifier Shelf Expiration Date Model / Serial / Lot Bard Peripheral Vascular [id number] Ultraclip Bard 17ga 10cm 2 Trigger Permanent Ultrasound - [id number] - [id number] Implanted:Qty: 1 on 10/22/2019 by Anthony Ambrosio MD at [facility] Breast Right: Breast Bard Peripheral Vascular 05/03/2022 [id number] / [id number] / [employer] 2088tc/52 Tendril Sts 6fr 52cm Is-1 Connector Active Fixation Bipolar Soft - [id number] - [id number] Implanted:Qty: 1 on 10/15/2018 by Jeffrey Stafford MD at [facility] Lead [employer] [id number] 09/03/2021 2088TC/52 / [id number] / [employer] 2088tc/46 Tendril Sts 6fr 46cm Is-1 Connector Bipolar Active Fixation - [id number] - [id number] Implanted:Qty: 1 on 10/15/2018 by Jeffrey Stafford MD at [facility] Lead [employer] [id number] 05/06/2021 2088TC/46 / [id number] / [employer] 1458q/86 Quartet 5fr [id number] 4 Electrode Is-4 Connector Steerable Tip - [id number] - [id number] Implanted:Qty: 1 on 10/15/2018 by Jeffrey Stafford MD at [facility] Lead [employer] [id number] 09/03/2021 1458Q/86 / [id number] / [employer] [id number] Quadra Allure Mp Rf 42m87mn Is4-Llll Is-1 Connector Thk6mm - [id number] - [id number] Implanted:Qty: 1 on 10/15/2018 by Jeffrey Stafford MD at [facility] Pacemaker [employer] [id number] 03/06/2020 [id number] / [id number] / Daig Yue/[employer] [id number] Angio-Seal Vip Bondek-Plus 6fr .035in 70cm Hemostatic Latex Free - [id number] Implanted:Qty: 1 on 09/23/2018 by Vivek Ruiz MD at [facility] [employer] 06/05/2019 [id number] / / [id number] Dep[employer] [id number] [place] 52mm Sector Hip Shell Acetabular Gription Sterile Latex Free - [id number] Implanted:Qty: 1 on 08/27/2021 by Saul Marquez MD at [facility] Right: Hip [employer] 03/06/2031 [id number] / / [id number] [employer] [id number] [place] 52mm 36mm Hip 10d +4mm Liner Acetabular Altrx Sterile Latex Free - [id number] Implanted:Qty: 1 on 08/27/2021 by Saul Marquez MD at [facility] Right: Hip [employer] 07/06/2026 [id number] / / [id number] [employer] [id number] [place] 6.5mm 35mm Acetabular Cancellous Screw Bone Sterile - [id number] Implanted:Qty: 1 on 08/27/2021 by Saul Marquez MD at [facility] Right: Hip [employer] 06/05/2031 0 / / [id number] [employer] [id number] Actis 99mm Collar Hip 2 Standard Offset Stem Femoral - [id number] Implanted:Qty: 1 on 08/27/2021 by Saul Marquez MD at [facility] Right: Hip [employer] 05/06/2028 [id number] / / [id number] [employer] [id number] Articul/Juma 36mm Cementless M Specification No Skirt Japanese Neck Latex Free - [id number] Implanted:Qty: 1 on 08/27/2021 by Saul Marquez MD at [facility] Right: Hip [employer] 08/06/2025 [id number] / / [id number] Procedures Procedure Name Priority Date/Time Associated Diagnosis Comments POCT LIPID PANEL Routine 05/12/2025 2:07 PM HARNESS RACING HANDICAPPER Lipid screening EGFR Routine 04/14/2025 10:16 AM CDT COMPREHENSIVE METABOLIC PANEL Routine 04/14/2025 10:16 AM CDT TRANSTHORACIC ECHO (TTE) COMPLETE W DOPPLER/CF WO CONTRAST Routine 04/05/2025 12:24 PM CDT Nonischemic cardiomyopathy (HCC) History of mitral valve repair SCREENING MAMMOGRAM BILATERAL W LAWSON Schedule Routine, Read Routine (OP Routine) 06/13/2022 9:56 AM HARNESS RACING HANDICAPPER Encounter for screening mammogram for malignant neoplasm of breast HEPATITIS C RNA, QUANTITATIVE, PCR Routine 06/02/2019 11:44 AM HARNESS RACING HANDICAPPER from Last 3 Months or Most Recently Relevant to Health Maintenance Results * (ABNORMAL) POCT lipid panel (05/12/2025 2:07 PM HARNESS RACING HANDICAPPER) Cholesterol, POC 128 <200 MG/DL HDL, POC 22(A) >=40 mg/dL Triglycerides, POC 72 <=149 mg/dL LDL Cholesterol POC 92 <=129 mg/dL Chol/HDL Ratio, POC 4.1 NONE Non-HDL Cholesterol, POC 106 NONE mg/dL Cholesterol Total, POC 128 30 - 199 mg/dL Capillary blood 05/12/2025 2 :07 PM HARNESS RACING HANDICAPPER Rosa Mathias NP POINT OF CARE TEST [...] MD LAB BLOOD ORDERABLES Fin al Result [facility] ([place] [address] [facility] [place] [address] * Comprehensive metabolic panel (04/14/2025 10:16 AM CDT) Sodium 136 135 - 145 mmol/L [facility] ([place]) Potassium, pl 4.2 3.3 - 4.9 mmol/L [facility] ([place]) Chloride 97 97 - 110 mmol/L [facility] ([place]) CO2 28 22 - 32 [...] Fin al Result [facility] ([place]) 1 [facility] Department [place] [address] * TRANSTHORACIC ECHO (TTE) COMPLETE W DOPPLER/CF WO CONTRAST (04/05/2025 12:24 PM CDT) EF Mod BP 53 % CONS SCIMAGE Anatomical Region Laterality Modality Ultrasound 04/05/2025 11:0 8 AM CDT Narrative 04/05/2025 3:08 PM CDT [facility] Cardiology [address], [place] [address] [address], [place] [address] P:[phone] P:[phone] Echocardiographic Report Patient Name: YUSUF PARISH A : 1960 Study Date: 04/05/2025 11:08:32 AM Sex: F Digital Cartographer: Irina Mahoney)(CT), [facility] Location: [facility] Provider: ROSA MATHIAS Height(Cm): 163 BSA: 1.54 [...] FINDINGS: Interpretation Site: Exam was interpreted at [facility]. Left Ventricle: Normal left ventricular size. Mild [...] pulmonic regurgitation. Electronically Signed By: Jose Cruz Betancourt MD, [facility] 04/05/2025 3:07:39 PM CDT Procedure Note Jose Cruz Betancourt MD - 04/05/2025 [facility] Cardiology [address] [facility] [address], [place] [address] [address] [facility] [address], [place], [place] [address] P:[phone] P:[phone] Echocardiographic Report Patient Name: YUSUF PARISH A : 1960 Study Date: 04/05/2025 11:08:32 AM Sex: F Digital Cartographer: Irina Mahoney)(CT), [facility] Location: [facility] Provider: ROSA MATHIAS Height(Cm): 163 BSA: 1.54 [...] 53 % [ 54 - 74 ] MRALENE Vmax 1.15cm2 [ 2.00 - 4.00 ] [...] FINDINGS: Interpretation Site: Exam was interpreted at [facility]. Left Ventricle: Normal left ventricular size. Mild [...] Electronically Signed By: Jose Cruz Betancourt MD, [facility] 04/05/2025 3:07:39 PM CDT Rosa Mathias NP CV ECHO PROCEDURES Final Result * Screening Mammogram Bilateral W Lawson (06/13/2022 9:56 AM HARNESS RACING HANDICAPPER) Anatomical Region Laterality Modality Breast Bilateral Mammography 06/13/2022 12:5 9 PM HARNESS RACING HANDICAPPER Impressions 06/13/2022 12:59 PM HARNESS RACING HANDICAPPER There is no mammographic evidence of malignancy. A 1 year screening mammogram is recommended. BI-RADS: 2 - Benign. The patient has been or will be contacted. The patient will be entered into a reminder system with a target due date of 1 year for her next mammogram. Electronically signed by: Prakash Rendon M.D. Narrative 06/13/2022 12:59 PM HARNESS RACING HANDICAPPER EXAMINATION: SCREENING MAMMOGRAM BILATERAL W LAWSON ORDERING [...] (HCV) RNA PCR, quantitative (06/02/2019 11:44 AM HARNESS RACING HANDICAPPER) HCV RNA qn Undetected Undetected IUnits/mL [facility] ([place]) Comment: Result in log IU/mL is Undetected. ADDITIONAL INFORMATION The quantification range of this assay is 15 to 100,000,000 IU/mL (1.18 log to 8.00 log IU/mL). Testing was performed using the lester HCV test ([employer] with the lester 6800 System. Test Performed by: [facility] [address] [place] [address] Manager Program Management: Raheem Conrejo M.D. Ph.D.; CLIA# [id number] Blood specimen (specimen) 06/02/2019 11:44 AM HARNESS RACING HANDICAPPER 06/02/2019 12:08 PM HARNESS RACING HANDICAPPER Mer Szymanski MD LAB MICROBIOLOGY - GENE RAL ORDERABLES Final Result [facility] [address] [facility] Department [place] [address] from Last 3 Months or Most Recently Relevant to Health Maintenance Insurance MEDICARE [facility] Address: [address] [address] [place] [address] [employer] [facility] MEDICARE [facility] Member Subscriber Plan / Payer ( fective 2023-Present) Name:Yusuf Parish Relation to Subscriber:Self Name:Yusuf Parish Payer ID:[id number] (NA) Type:MEDICAID RISK OTHER Address: [address] [facility] Advance Directives For more information, please contact: [phone] Documents on File Type Date Recorded Patient Lugger Expl anation ADVANCE DIRECTIVE 08/27/2021 9:10 AM Power of Retail Marketing Executive-Medical Power of Retail Marketing Executive 05/22/2021 2:02 PM ADVANCE DIRECTIVE 10/21/2018 3:46 [...] 9:41 AM 12/23/2017 2:52 AM Care Teams Repairing Calibrator Relationship Specialty Start Date End Date Nati Garcia PA [address] [address] PCP - General Neurosurgery 10/14/24 Sung Do MD Consulting Physician Cardiology 10/16/18 Saul Marquez MD Surgeon Orthopedic Surgery 08/28/21
--- OUTSIDE RECORDS SUMMARY | 2025-05-17 12:15 | XMS_ITS | Encounter Summary ---
Author Organization [facility] Address [address] [place] [address] Phone Care Team Providers Care Chiropractor Sole Practitioner Name Role Phone Symone Juan David Fisher MD Unavailable Hector Rendon MD Unavailable Rohit Cardoso MD Unavailable [phone] Sung Do MD Unavailable Silvano Byrne MD Primary Care Provider [phone] Shawn Alves MD Unavailable Nati Garcia 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 [address] [place] [address] 10/25/2025 11:00 AM CDT Office Visit [facility] Oncology Services [address] [place] [address] Hector Rendon MD [address] [place] [address] Discharge Disposition: Discharged to home or Selfcare 10/25/2025 11:30 AM CDT Clinical Support [facility] [address] [place] [address] Hector Rendon MD [address] [place] [address] Discharge Disposition: Discharged to home or Selfcare [...] documented as of this encounter Care Teams Chiropractor Sole Practitioner Relationship Specialty Start Date End Date Silvano Byrne MD [address] [facility] [facility] [address] [place] [address] PCP - General Family Medicine 02/25/20 03/23/24 Nati Garcia [facility] [address] [address] PCP - General Physician Residential Care Officer 03/24/24 Juan David Ashby MD Consulting Physician General Surgery 12/27/19 Hector Rendon MD [address] [place] [address] Consulting Physician Medical Oncology 12/27/19 Rohit Cardoso MD [address] [place] [address] Consulting Physician Radiation Oncology 12/27/19 Sung Do MD [address] [facility] [address] [place] [address] Consulting Physician Cardiovascular Disease - Cardiology 12/28/19 Shawn Alves MD [address] [address] Consulting Physician Colon and Rectal Surgery 05/10/22 documented as of this encounter
--- OUTSIDE RECORDS SUMMARY | 2025-05-17 12:15 | XMS_ITS | Encounter Summary ---
Author Organization [facility] Address [address] [place] [address] Phone Care Team Providers Care Environmental Maintenance Worker Name Role Phone Symone Juan David Fisher MD Unavailable Hector Rendon MD Unavailable Rohit Cardoso MD Unavailable [phone] Sung Do MD Unavailable [phone] Silvano Byrne MD Primary Care Provider Shawn Alves MD Unavailable Nati Garcia [facility] Primary Care Pro vider Reason for Visit * Reason Comments Medication Refill Encounter Details Date Type Department Care Team (Late st Contact Info) Description 04/24/2023 Refill [facility] - Family Medicine [facility] [address] [place] [phone] Silvano Byrne MD [address] [place] [address] Medication Refill Social History Tobacco Use Types [...] 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 Not on file [...] Type Provider Dept 11/18/22 Office Visit Silvano yBrne MD [facility] 08/14/22 Office Visit Martin [...] st Contact Info) Description 05/26/2025 2:00 PM DUCK OPERATOR Office Visit [facility] - Primary Care - [place] [address] [place] [phone] Ntai Garcia, [place] [address] [place] [address] 10/25/2025 11:00 AM CDT Office Visit [facility] Oncology Services [address] [place] [phone] Hector Rendon MD [address] [place] [address] Discharge Disposition: Discharged to home or Selfcare 10/25/2025 11:30 AM CDT Clinical Support [facility] [address] [place] [address] Hector Rendon MD [address] [place] [address] Discharge Disposition: Discharged to home or Selfcare documented as of this encounter Goals Goal Patient Goal Type Associated Problems Recent Progress Patient-Stated? Author Healthy Lifestyle Healthy Lifestyle Carolyn Olivo, RN Note: Pace/increase activity documented as of this encounter Visit Diagnoses Not on filedocumented in this encounter Additional Health Concerns Assessment Noted Time PHQ-9 Depression Total Score: 0 04/06/20 10:00 AM CDT documented as of this encounter Care Teams Environmental Maintenance Worker Relationship Specialty Start Date End Date Silvano Byrne MD [address] [facility] [address] [place] [address] PCP - General Family Medicine 02/25/20 03/23/24 Nati Garcia, [place] [address] [address] PCP - General Physician Concrete Engineer 03/24/24 Juan David Ashby MD Consulting Physician General Surgery 12/27/19 Hector Rendon MD [address] [place] [address] Consulting Physician Medical Oncology 12/27/19 Rohit Cardoso MD [address] [place] [address] Consulting Physician Radiation Oncology 12/27/19 Sung Do MD [address] [address] Consulting Physician Cardiovascular Disease - Cardiology 12/28/19 Shawn Alves MD [address] [address] Consulting Physician Colon and Rectal Surgery 05/10/22 documented as of this encounter
--- OUTSIDE RECORDS SUMMARY | 2025-05-17 12:15 | XMS_ITS | Encounter Summary ---
Author Organization [facility] Healthcare Address [address] [place] [address] Care Team Providers Care Material Control Specialist Name Role Phone Sung Do MD Unavailable [phone] Saul Marquez MD Unavailable Nati Garcia Primary Care Prov ider Encounter Details Date Type Department Care Team (Late st Contact Info) Description 05/13/2025 Telephone [facility] Cardiology [address] [facility] [address] [address] Rosa Tellez NP [address] [place] [address] Social History Tobacco Use Types Packs/Day Years [...] file Legal Sex Female 12:19 AM RETAIL SALES VITAMIN CONSULTANT Gender Identity Not on file Sexual Orientation Not on file Occupation Industry Job Start Date Job End Date Retired Not on file Not on file Not on file documented as of this encounter Ordered Prescriptions Prescription Sig Dispense Quantity Refills Last Filled Start Date End Date potassium chloride ER (KLOR-CON) 20 mEq CR tablet Take 1 tablet (20 mEq total) by mouth daily 90 tablet 3 05/13/2025 05/13/2026 documented in this encounter Miscellaneous Notes * Telephone Encounter - Carie Reyes - 05/17/2025 11:05 AM CST Pt was seen by PCP this morning and they advised her to go to ED due to CHF and possible pneumonia. She wants CT to be aware that she is headed to ED. Contact: [place] SAL[place] VITAMIN CONSULTANT * Telephone Encounter - Trisha Olsen RN - 05/13/2025 11:47 AM RETAIL SALES VITAMIN CONSULTANT Spoke to DJ and reviewed the above response from Dr Lewis's office and CT, she verbalized understandingand will seek treatment if any worsening of symptoms [place] SAL[place]ITAMIN CONSULTANT * Telephone Encounter - Rosa Tellez NP - 05/13/2025 11:14 AM RETAIL SALES VITAMIN CONSULTANT Please let ROBI know what you were told when you called Dr. Ross's office. Therefore, we will continue with the furosemide for now, but if Mariam develops any fevers, chills, body aches, increased fatigue over the weekend, go to urgent care to start treatment for the pneumonia. Another option could be to reach out to PCP office to ask if they would be willing to start an antibiotic to treat pneumonia. Thank you. [place] SAL[place] VITAMIN CONSULTANT * Addendum Note - Trisha Olsen RN - 05/13/2025 11:09 AM CSTAddended by: TRISHA OLSEN on: 05/13/2025 11:09 AM Modules accepted: Orders [place] SAL[place] VITAMIN CONSULTANT * Telephone Encounter - Trisha Olsen RN - 05/13/2025 11:02 AM RETAIL SALES VITAMIN CONSULTANT Spoke to ROBI who verbalized understanding of all of the above instructions. New script for [facility] to [facility] for 90 day supply, Pt sees Dr Ross at [facility]. I called that office and spoke to Shanta who states heis not in office today. I asked if another provider could review the CXR and was told their office does not do that and it would either wait until Dr Lewis was back in the office or pt would have to be treated by our office. Copy of CXR faxed to [phone], pt has follow up appt with Dr Lewis on 05/20. [place] SAL[place] VITAMIN CONSULTANT * Telephone Encounter - Rosa Tellez NP - 05/13/2025 10:15 AM RETAIL SALES VITAMIN CONSULTANT Please call patient's sister ROBI who manages her care. Let her know that the chest x-ray showed CHF,possible pneumonia, and there is a pleural effusion on the right side. I will treat the CHF and will ask her work car operator to treat the pneumonia and pleural effusion. She has a work car operator at [facility] but I can not remember who it is. Please ask ROBI who the work car operator is and call that office to let them know about the chest x-ray and fax over a report that I am asking the work car operator to help treat this. For the CHF I want her to do furosemide 40 mg in the morning and 20 mg in the afternoon, about 6 hours between doses. Do this for 1 week and then resume furosemide 20 mg b.i.d.. She will need to add a potassium chloride 20 mEq tablet once daily with a meal. Keep tracking daily weights. I see her again in 1 month. Thank you. [place] SAL[place] VITAMIN CONSULTANT documented in this encounter Plan of Treatment Not on file documented as of this encounter Visit Diagnoses Not on filedocumented in this encounter Care Teams Material Control Specialist Relationship Specialty Start Date End Date Nati Garcia PA [address] [address] PCP - General Neurosurgery 10/14/24 Sung Do MD Consulting Physician Cardiology 10/16/18 Saul Marquez MD Surgeon Orthopedic Surgery 08/28/21 documented as of this encounter
--- OUTSIDE RECORDS SUMMARY | 2025-05-17 12:15 | XMS_ITS | Clinical Summary ---
Author Organization [facility] Address [address] [place] [address] Care Team Providers Care Population Health Coach Name Role Phone Priya Gallego MD Primary Care Provider + Source Comments [facility],non-owned Affiliates and Associated Physician Practices is amultiple site organization consisting of ambulatory clinics and hospital sitesin [place], [place], [place] and [place]. This disclosure is being madepursuant to the Care Everywhere program and may not contain all information available regarding this patient. Last updated 18.[facility] [employer] Social History Tobacco Use Types Packs/Day Years Used Date Smoking Tobacco: Never Assessed Comments Unknown Sex and Gender Information Value Date Recorded Sex Assigned at Not on file Legal Sex Female 6:30 AM TRANSITIONAL NURSE Gender Identity Not on file Sexual Orientation [...] MEDICAID - OUT OF STATE Care Teams Population Health Coach Relationship Specialty Start Date End Date Priya Gallego MD [address] [place] [address] PCP - General 12/05/17
--- OUTSIDE RECORDS SUMMARY | 2025-05-17 12:16 | XMS_ITS ---
Author Organization [facility] Address [address] 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 Dx; CHB. DOI 12/09/2024-[place]. [facility] remote. Esophageal stenosis 01/05/2024 History [...] total fan radiation, radiotherapy in 1975 at [facility] in the management of Hodgkin's disease. Records were unavailable. Right partial breast radiotherapy, 50.4 Gy in 28 fractions, from 01/10/2020 thru 02/16/2020. Personal history of Hodgkin lymphoma 12/08/2019 Overview (02/16/2020): Diagnosed in 1976 at the age of 16 years with Hodgkin's disease with a high right neck presentation, subtype in stage unknown. She received radiation therapy at [place] with what from her description sounded like [...] from 12/28/2019:Stage IA(pT1b, pN0(sn), cM0, G2, ER+, MT+, HER2-, Oncotype DX score: 17) - Signed by Rohit Cardoso MD on 12/28/2019 Overview (02/16/2020): Pathological stage IA ER/MT positive, HER2 negative an Oncotype DX score [...]
--- OUTSIDE RECORDS SUMMARY | 2025-05-17 12:16 | XMS_ITS | Encounter Summary ---
Author Organization [facility] Address [address] [place] [address] Phone Care Team Providers Care Radiology Ct Technologist Name Role Phone Juan David Ashby MD Unavailable Hector Rendon MD Unavailable [phone] Rohit Cardoso MD Unavailable Sung Do MD Unavailable Shawn Alves MD Unavailable Nati Garcia [facility] Primary Care Pro vider Reason for Visit * Reason Onset Date Comments Follow-up 05/04/2025 Encounter Details Date Type Department Care Team (Late st Contact Info) Description 05/04/2025 Telephone [facility] [address] [place] [phone] Nati Garcia, [facility] [address] [place] [address] Follow-up Social History Tobacco Use Types Packs/Day Years Used Date Smoking Tobacco: Never Smokeless Tobacco: Never Alcohol Use Standard Drinks/Week Comments Not Currently 0 (1 standard drink = 0.6 oz pur e alcohol) Occasionally on holidays. 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 Currently sees [facility] in [place]. Phone number online [phone] Patient states fax was sent 3-4 times to the office. Recommendation: Please advise documented in this encounter Plan of Treatment Upcoming Encounters Date Type Department Care Team (Late st Contact Info) Description 05/26/2025 2:00 PM OLIVE GRADER Office Visit [facility] - Primary Care - [address] [place] [address] Nati Garcia PAC [address] [place] [address] 10/25/2025 11:00 AM CDT Office Visit [facility] [address] [place] [phone] Hector Rendon MD [address] [place] [address] Discharge Disposition: Discharged to home or Selfcare 10/25/2025 11:30 AM CDT Clinical Support [facility] [address] [place] [phone] Hector Rendon MD [address] [place] [address] Discharge Disposition: Discharged to home or Selfcare [...] documented as of this encounter Care Teams Radiology Ct Technologist Relationship Specialty Start Date End Date Nati Garcia PAC [address] [address] PCP - General Physician Sporting Goods Sales Manager 03/24/24 Juan David Ashby MD Consulting Physician General Surgery 12/27/19 Hector Rendon MD [address] [place] [address] Consulting Physician Medical Oncology 12/27/19 Rohit Cardoso MD [address] [place] [address] Consulting Physician Radiation Oncology 12/27/19 Sung Do MD [address] [facility] [address] [place] [address] Consulting Physician Cardiovascular Disease - Cardiology 12/28/19 Shawn Alves MD [address] [address] Consulting Physician Colon and Rectal Surgery 05/10/22 documented as of this encounter
--- OUTSIDE RECORDS SUMMARY | 2025-05-17 12:16 | XMS_ITS | Clinical Summary ---
Author Organization [facility] Address [address] [facility], [address] [address] Phone Care Team Providers Care Practice Office Associate Name Role Phone Juan David Ashby MD [...] AV2 Leadless Pacemaker. Dx; CHB. DOI 12/09/2024-[place]. [facility] remote. Esophageal stenosis 01/05/2024 History [...] stage unknown. She received radiation therapy at [facility] with what from her description sounded like [...] from 12/28/2019:Stage IA(pT1b, pN0(sn), cM0, G2, ER+, IA+, HER2-, Oncotype DX score: 17) - Signed by Rohit Cardoso MD on 12/28/2019 Overview (02/16/2020): Pathological stage IA ER/IA positive, HER2 negative an Oncotype DX score [...] Encounters Date Type Department Care Team Description 05/17/2025 10:30 AM INVENTORY AUDIT CLERK Office Visit [facility] [address] [place] [address] Nati Garcia, DEEDEE Shortness of breath (Primary Dx); Chronic heart failure with preserved ejection fraction Discharge Disposition: Discharged to home or Selfcare 05/17/2025 Travel 05/16/2025 Telephone [facility] [place] [address] [place] [address] Nati Garcia, DEEDEE 05/04/2025 Telephone [facility] [address] [place] [phone] Nati Garcia, DEEDEE Follow-up 05/04/2025 Refill [facility] [address] [place] [address] Nati Garcia, DEEDEE Medication Refill 04/26/2025 11:30 AM CDT Clinical Support [facility] Oncology Services [address] [place] [phone] Hector Rendon MD Carcinoma of upper-outer quadrant of right breast in female, estrogen receptor positive (Primary Dx); Age-related osteoporosis without current pathological fracture; Osteoarthritis of right hip, unspecified osteoarthritis type; Use of letrozole (Femara) Discharge Disposition: Discharged to home or Selfcare 04/26/2025 11:00 AM CDT Office Visit [facility] [address] [place] [phone] Hector Rendon MD Poor appetite (Primary Dx); Use of letrozole (Femara); Status post partial mastectomy of right breast; Abnormal finding of blood chemistry, unspecified Discharge Disposition: Discharged to home or Selfcare 04/26/2025 Travel 04/19/[address] [facility] - [place] [address] [place] [phone] Nati Garcia, DEEDEE Medication Refill 04/11/2025 [facility]phone [facility] [address] [place] [phone] Nati Garcia, PAC Advice Only; Letter for School/Work 04/11/2025 [facility] [address] [place] [phone] Hector Rendon MD 03/30/2025 11:30 AM CDT Office Visit [facility] - [place] [address] [place] [phone] Nati Garcia, DEEDEE Essential hypertension (Primary Dx) Discharge Disposition: Discharged to home or Selfcare 03/30/2025 Travel 03/17/2025 9:00 AM CDT Home Care Visit [address] [address] Alisa Miranda RN SN - OASIS DISCHARGE 03/11/2025 4:00 PM CDT Home Care Visit [address] [address] Alisa Miranda RN DISEASE MGT PHONE 03/09/2025 3:30 PM CDT Home Care Visit [address] [address] Alisa Miranda RN DISEASE MGT PHONE 03/04/2025 10:00 AM CDT Home Care Visit [address] [address] Alisa Miranda, ROSCOE SN - WOUND VISIT 03/02/2025 8:00 AM CDT Home Care Visit [address] [address] Alisa Miranda RN SN - WOUND VISIT 03/01/2025 12:40 PM CDT Lab [facility] [place] [phone] Chronic heart failure with preserved ejection fraction (HCC) Discharge Disposition: Discharged to home or Selfcare 03/01/2025 11:00 AM CDT Office Visit [facility] [place] [phone] Dione Chew APRN, NIDIA Weight loss (Primary Dx) Discharge Disposition: Discharged to home or Selfcare 03/01/2025 Results Follow-Up [facility] [place] [phone] Dione Chew APRN, INTEGRATION ANALYST CBC WITH AUTO DIFFERENTIAL 03/01/2025 Travel 02/25/2025 9:00 AM CDT Home Care Visit [address] [address] Alisa Miranda, ROSCOE SN - WOUND VISIT 02/23/2025 9:00 AM CDT Home Care Visit [address] [address] Alisa Miranda, ROSCOE SN - WOUND VISIT 02/21/2025 Refill [facility] [place] [address] [place] [phone] Nati Garcia PAC Medication Refill 02/18/2025 3:30 PM CDT Home Care Visit [address] [address] Kamala Terry LPN SN - WOUND VISIT 02/18/2025 Refill [facility] [place] [address] [place] [address] Nati Garcia, PAC Medication Refill 02/18/2025 Home Care Visit [address] [address] Evelyn Sabillon OT OT - DISCHARGE SUMMARY 02/16/2025 9:00 AM CDT Home Care Visit [address] [address] Alisa Miranda RN SN - WOUND VISIT 02/15/2025 3:30 PM CDT Home Care Visit [address] [address] Anastacia Bailon, PT PT - DISCIPLINE DISCHARGE 02/15/2025 12:00 PM CDT Home Care Visit [address] [address] Poppy Estrada OTA OT - DISCIPLINE DISCHARGE 02/15/2025 10:00 AM CDT Home Care Visit [address] [address] Miri Allred, INDUSTRIAL RETROFIT DESIGNER INDUSTRIAL RETROFIT DESIGNER - HOME VISIT 02/15/2025 [facility] [place] [address] [place] [address] Nati Garcia, PAC 02/15/2025 Home Care Visit [address] [address] Miri Allred, INDUSTRIAL RETROFIT DESIGNER TELEPHONE ENCOUNTER 02/15/2025 Home Care Visit [address] [address] Poppy Estrada OTA CASE COMMUNICATION from Last 3 Months Immunizations Immunization Administration Dates Next Due Covid-19, Mrna, Lnp-s, Pf, 30 Mcg/0.3 Ml Dose (P fizer) 09/05/2020 Influenza Vaccine, Quadrivalent, PF 02/29/2020 Pneumococcal [...] oz pur e alcohol) Occasionally on holidays. 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 on file No t on file Last Filed Vital Signs Vital Sign Reading Time Taken Comments Blood Pressure 170/76 05/17/2025 10:31 AM INVENTORY AUDIT CLERK Pulse 60 05/17/2025 10:31 AM INVENTORY AUDIT CLERK Temperature 36.1 C (97 F) 05/17/2025 10:31 AM INVENTORY AUDIT CLERK Respiratory Rate 12 05/17/2025 10:31 AM INVENTORY AUDIT CLERK Oxygen Saturation 98% 05/17/2025 10:31 AM INVENTORY AUDIT CLERK Inhaled Oxygen Concentration - - Weight 50.5 kg (111 lb 4.8 oz) 04/26/2025 10:30 AM CDT Height 162.6 cm (5' 4) 04/26/2025 10:30 AM CDT Body Mass Index 19.1 04/26/2025 10:30 AM CDT Plan of Treatment Upcoming Encounters Date Type Department Care Team (Late st Contact Info) Description 05/26/2025 2:00 PM INVENTORY AUDIT CLERK Office Visit [facility] - [place] [address] [place] [address] Nati Garcia, DEEDEE [address] [place] [address] 10/25/2025 11:00 AM CDT Office Visit [facility] Services [address] [place] [phone] Hector Rendon MD [address] [place] [address] Discharge Disposition: Discharged to home or Selfcare 10/25/2025 11:30 AM CDT Clinical Support [facility] [address] [place] [phone] Hector Rendon MD [address] [place] [address] Discharge Disposition: Discharged to home or Selfcare [...] CAD W BETHANY Routine 07/09/2024 11:45 AM INVENTORY AUDIT CLERK Carcinoma of upper-outer quadrant of right breast in female, estrogen receptor positive (HCC) Encounter for screening mammogram for malignant neoplasm of breast HUMAN PAPILLOMA VIRUS (HPV) Routine 12/23/2023 3:33 PM CDT Encounter for well woman exam with routine gynecological exam PATHOLOGY CYTOLOGY VIDEO RECORDER MECHANIC Routine 12/23/2023 3:33 PM CDT Encounter for well woman exam with routine gynecological exam GI IMAGING - COLONOSCOPY Routine 06/27/2022 10:23 AM INVENTORY AUDIT CLERK from Last 3 Months or Most Recently Relevant to Health Maintenance Results * CMP (COMPREHENSIVE METABOLIC PANEL) (04/14/2025 12:00 AM CDT) Blood us Hector Latrice Rendon MD CHEMISTRY ORDERABLES [facility] al Result SCAN * (ABNORMAL) CBC WITH AUTO DIFFERENTIAL (03/01/2025 11:19 AM CDT) WBC 8.42 4.00 - 12.00 10(3)/mcL 03/01/2025 12:26 PM CDT [facility] RBC 5.92(H) 3.80 - 5.30 10(6)/mcL 03/01/2025 12:26 PM CDT [facility] HEMOGLOBIN (HGB) 15.1 12.0 - 15.8 g/dL 03/01/2025 12:26 PM CDT [facility] HEMATOCRIT (HCT) 49.6(H) 36.0 - 47.0 % 03/01/2025 12:26 PM CDT [facility] MCV 83.8 82.0 - 96.0 fL 03/01/2025 12:26 PM CDT [facility] MCH 25.5(L) 26.0 - 34.0 pg 03/01/2025 12:26 PM CDT [facility] MCHC 30.4(L) 31.0 - 36.0 g/dL 03/01/2025 12:26 PM CDT [facility] PLATELET COUNT 233 140 - 440 10(3)/[facility] 03/01/2025 12:26 PM CDT [facility] RDW 16.0(H) 11.8 - 15.5 % 03/01/2025 12:26 PM CDT [facility] MPV 12.8(H) 9.7 - 12.4 fL 03/01/2025 12:26 PM CDT [facility] NEUTROPHILS 75.8(H) 47.0 - 73.0 % 03/01/2025 12:26 PM CDT [facility] LYMPHOCYTES 12.5(L) 18.0 - 42.0 % 03/01/2025 12:26 PM CDT [facility] MONOCYTES 9.1 4.0 - 12.0 % 03/01/2025 12:26 PM CDT [facility] EOSINOPHILS 1.3 0.0 - 5.0 % 03/01/2025 12:26 PM CDT [facility] BASOPHILS 1.1(H) 0.0 - 1.0 % 03/01/2025 12:26 PM CDT [facility] IMMATURE GRANULOCYTE 0.2 0.0 - 0.4 % 03/01/2025 12:26 PM CDT [facility] ABSOLUTE NEUTROPHILS 6.38 1.60 - 7.70 10(3)/mcL 03/01/2025 12:26 PM CDT [facility] ABSOLUTE LYMPHOCYTES 1.05(L) 1.30 - 3.20 10(3)/[facility] 03/01/2025 12:26 PM CDT [facility] ABSOLUTE MONOCYTES 0.77 0.20 - 1.00 10(3)/[facility] 03/01/2025 12:26 PM CDT [facility] ABSOLUTE EOSINOPHIL 0.11 0.00 - 0.40 10(3)/[facility] 03/01/2025 12:26 PM CDT [facility] ABSOLUTE BASOPHILS 0.09 0.00 - 0.10 10(3)/mcL 03/01/2025 12:26 PM CDT [facility] ABSOLUTE IMMATURE GRANULOCYTE 0.02 0.00 - 0.03 10 (3) mcL. 03/01/2025 12:26 PM CDT [facility] NRBC PER 100 WBC 0 03/01/20 12:26 PM CDT [facility] Blood Venipuncture / Unknown 03/01/2025 11:19 AM CDT 03/01/2025 11:19 AM CDT us Dione Chew EMERGENCY MEDICAL SERVICE MANAGER, INTEGRATION ANALYST HEMATOLOGY ORDERABLES Bonnie brown Result [facility] [address] [place] [address] * KEILY SCREENING BILATERAL DIGITAL W CAD W BETHANY (07/09/2024 11:45 AM INVENTORY AUDIT CLERK) Anatomical Region Laterality Modality breast Bilateral Mammography 07/09/2024 10:5 3 AM INVENTORY AUDIT CLERK Narrative 07/10/2024 7:17 AM INVENTORY AUDIT CLERK - KEILY SCREENING BILATERAL DIGITAL W CAD [...] Comparison is made to exams dated: 07/09/2023 [facility], 06/13/2022, and 06/05/2021 [facility]. BREAST TISSUE:The breasts are heterogeneously dense, [...] exam. Electronically signed by: Damaris bang/alexis:07/09/2024 17:02:14 Shipping And Receiving(s): RT Alexus(R)(M), [facility] letter sent: Normal Exam Reading location: [facility] Mammogram BI-RADS: Category 2: Benign Procedure [...] Comparison is made to exams dated: 07/09/2023 [facility], 06/13/2022, and 06/05/2021 [facility]. BREAST TISSUE:The breasts are heterogeneously dense, [...] next screening exam. Electronically signed by: Damaris Villalobos M.D. ab/penrad:07/09/2024 17:02:14 Shipping And Receiving(s): RT Alexus(Reese)(M), [facility] letter sent: Normal Exam Reading location: [facility] Mammogram BI-RADS: Category 2: Benign us Maile Decker PAC IMG MAMMO ORDERABLES Bonnie l Result * PATHOLOGY CYTOLOGY VIDEO RECORDER MECHANIC (12/23/2023 3:33 PM CDT) SPECIMEN ADEQUACY A scant cellular component is noted. Endocervical/transf ormation zone component is present. 01/05/2024 2:13 PM CDT [facility] DESCRIPTIVE DIAGNOSIS NEGATIVE FOR INTRAEPITHELIAL LESIONS OR MALIGNANCY. 01/05/2024 2:13 PM CDT [facility] at 1413 CDT Automated Examination Analysis of this sample has been assisted by an automated imaging and review system ([employer] System[employer] Imaging System, [employer], [place], [place]). This case is further evaluated and finalized by a product development actuary and/or pathologist. 01/05/2024 2:13 PM CDT [facility] Disclaimer The PAP smear is a [...] unless clinically indicated. 01/05/2024 2:13 PM CDT [facility] Case Report Gynecologic Cytology Report Case: [id number] Authorizing Provider: Lanie Sol APRN, INTEGRATION ANALYST Collected: 12/23/2023 03:33 PM Ordering Location: [facility] - Family Received: 12/23/2023 03:33 PM Medicine - Harris First Screen: Anneliese Miller Specimen: TP Screen, Cervix/Endocervix 01/05/2024 2:13 PM CDT [facility] Other CERVIX UTERI STRUCTURE / Unknown Non-Phlebotomy Collection / Unknown 12/23/2023 3:33 PM CDT 12/23/2023 3:33 PM CDT us Lanie Sol EMERGENCY MEDICAL SERVICE MANAGER, INTEGRATION ANALYST PATHOLOGY/CYTOLOGY ORDER JOHN Final Result [facility] [address] [place] [address], * HUMAN PAPILLOMA VIRUS (HPV) (12/23/2023 3:33 PM CDT) HPV TYPE 16 NEGATIVE NEGATIVE 12/24/2023 2:11 PM CDT [facility] Comment: A negative high-risk HPV result [...] 18 NEGATIVE NEGATIVE 12/24/2023 2:11 PM CDT [facility] Comment: A negative high-risk HPV result [...] PCR NEGATIVE NEGATIVE 12/24/2023 2:11 PM CDT [facility] Comment: The following Other High Risk [...] OR DIAGNOSTIC SCREENING 12/24/2023 2:11 PM CDT [facility] Other Non-Phlebotomy Collection / Unknown 12/23/2023 3:33 PM CDT 12/23/2023 3:33 PM CDT Narrative [facility] - 12/24/2023 2:11 PM CDT Performed by Real-Time Polymerase Chain Reaction (PCR) on the [employer] Arden 4800. This assay has been validated for use with post-aliquot samples from the [employer] T5000 processor. Lanie Sol APRN INTEGRATION ANALYST LAB SEND OUTS Final Re sult [facility] [address] [place] [address], [facility] [address] [place] [address] * GI IMAGING - COLONOSCOPY (06/27/2022 10:23 AM INVENTORY AUDIT CLERK) Shawn Alves MD IMG DIAGNOSTIC ORDERABLES Final Result from Last 3 Months or Most Recently Relevant to Health Maintenance Insurance MEDICARE C ROMIE Advance Directives Documents on File Type Date Recorded Patient Physics Professor Expl anation Power of Political Reporter for Health Care 01/26/2025 3:50 PM POA HC 10/09/2018 Power of Political Reporter for Health Care 11/11/2019 6:43 AM POA * Full Code (Latest Code Status on File) Date Activated Date Inactivated Comments 02/02/2025 2:25 PM * No CPR-Selective Treatment Date Activated Date Inactivated Comments 01/26/2025 2:54 PM 02/02/2025 2:25 PM Care Teams Practice Office Associate Relationship Specialty Start Date End Date Nati Garcia PAC [address] [address] PCP - General Physician Line Assigner 03/24/24 Juan David Ashby MD Consulting Physician General Surgery 12/27/19 Hector Rendon MD [address] [place] [address] Consulting Physician Medical Oncology 12/27/19 Rohit Cardoso MD [address] [place] [address] Consulting Physician Radiation Oncology 12/27/19 Sung Do MD [address] [facility] [address] [place] [address] Consulting Physician Cardiovascular Disease - Cardiology 12/28/19 Shawn Alves MD [address] [address] Consulting Physician Colon and Rectal Surgery 05/10/22
--- OUTSIDE RECORDS SUMMARY | 2025-05-17 12:16 | XMS_ITS | Encounter Summary ---
Author Organization [facility] Address [address] [place] [address] Phone Care Team Providers Care Edi Analyst Name Role Phone Symone Juan David Fisher MD Unavailable [phone] Hector Rendon MD Unavailable Rohit Cardoso MD Unavailable [phone] Sung Do MD Unavailable Silvano Byrne MD Primary Care Provider [phone] Shawn Alves MD Unavailable Nati Garcia MERGED WITH [facility] Primary Care Pro vider Reason for Visit * Reason Comments Medication Refill Encounter Details Date Type Department Care Team (Late st Contact Info) Description 11/[facility]20[facility] [address] [place] [address] Hector Rendon MD [address] [place] [address] Medication Refill Social History Tobacco [...] 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 - Primary Care - [place] [address] [place] [address] Nati Garcia PAC [address] [place] [address] 10/25/2025 11:00 AM CDT Office Visit [facility] Oncology Services [address] [place] [address] Hector Rendon MD [address] [place] [address] Discharge Disposition: Discharged to home or Selfcare 10/25/2025 11:30 AM CDT Clinical Support [facility] [address] [place] [phone] Hector Rendon MD [address] [place] [address] Discharge Disposition: Discharged to home or Selfcare [...] documented as of this encounter Care Teams Edi Analyst Relationship Specialty Start Date End Date Silvano Byrne MD [address] [address] PCP - General Family Medicine 02/25/20 03/23/24 Nati Garcia PAC [address] [address] PCP - General Physician Fiber Drier Operator 03/24/24 Juan David Ashby MD Consulting Physician General Surgery 12/27/19 Hector Rendon MD [address] [place] [address] Consulting Physician Medical Oncology 12/27/19 Rohit Cardoso MD [address] [place] [address] Consulting Physician Radiation Oncology 12/27/19 Sung Do MD [address] [facility] [address] [place] [address] Consulting Physician Cardiovascular Disease - Cardiology 12/28/19 Shawn Alves MD [address] [facility] [address] [place] [address] Consulting Physician Colon and Rectal Surgery 05/10/22 documented as of this encounter
--- OUTSIDE RECORDS SUMMARY | 2025-05-17 12:16 | XMS_ITS | Encounter Summary ---
Author Organization [facility] Address [address] [place] [address] Phone Care Team Providers Care Delinquency Counselor Name Role Phone SymoneJuan David MD Unavailable Hector Rendon MD Unavailable Rohit Cardoso MD Unavailable Sung Do MD Unavailable Silvano Byrne MD Primary Care Provider Shawn Alves MD Unavailable Nati Garcia [facility] Primary Care Pro vider Reason for Visit * Reason Comments Medication Refill Encounter Details Date Type Department Care Team (Late st Contact Info) Description 07/29/2021 [facility]ill [facility] [place] Guido Staples [address] [place] [address] Silvano Byrne MD [address] [place] [address] Medication Refill Social History Tobacco Use Types [...] 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 Showing future appointments within next 90 days and meeting all other requirements OF SALES PROMOTION documented in this encounter Plan of Treatment Upcoming Encounters Date Type Department Care Team (Late st Contact Info) Description 05/26/2025 2:00 PM HEAD OF SALES PROMOTION Office Visit [facility] - Primary Care - [place] [address] [place] [address] Nati Garcia, DEEDEE [address] [place] [address] 10/25/2025 11:00 AM CDT Office Visit [facility] Oncology Services [address] [place] [address] Hector Rendon MD [address] [place] [address] Discharge Disposition: Discharged to home or Selfcare 10/25/2025 11:30 AM CDT Clinical Support [facility] Oncology Services [address] [place] [address] Hector Rendon MD [address] [place] [address] Discharge Disposition: Discharged to home or Selfcare [...] documented as of this encounter Care Teams Delinquency Counselor Relationship Specialty Start Date End Date Silvano Byrne MD [address] [facility] [address] [place] [address] PCP - General Family Medicine 02/25/20 03/23/24 Nati Garcia, DEEEDE [address] [address] PCP - General Physician Malted Milk Mixer 03/24/24 Juan David Ashby MD Consulting Physician General Surgery 12/27/19 Hector Rendon MD [address] [place] [address] Consulting Physician Medical Oncology 12/27/19 Rohit Cardoso MD [address] [place] [address] Consulting Physician Radiation Oncology 12/27/19 Sung Do MD [address] [address] Consulting Physician Cardiovascular Disease - Cardiology 12/28/19 Shawn Alves MD [address] [address] Consulting Physician Colon and Rectal Surgery 05/10/22 documented as of this encounter
--- OUTSIDE RECORDS SUMMARY | 2025-05-17 12:16 | XMS_ITS | Encounter Summary ---
Author Organization [facility] Address [address] [place] [address] Phone Care Team Providers Care Merchandise Stocker Name Role Phone Juan David Ashby MD Unavailable Hector Rendon MD Unavailable Rohit Cardsoo MD Unavailable Sung Do MD Unavailable Shawn Alves MD Unavailable Nati Garcia Primary Care Pro vider Encounter Details Date Type Department Care Team (Late st Contact Info) Description 05/16/2025 Telephone [facility] - Primary Care - [place] [address] [place] [address] Nati Garcia, [facility] [address] [place] [address] Social History Tobacco Use Types Packs/Day Years Used Date Smoking Tobacco: Never Smokeless Tobacco: Never Alcohol Use Standard Drinks/Week Comments Not Currently 0 (1 standard drink = 0.6 oz pur e alcohol) Occasionally on holidays. [facility] Utilities Answer Date Recorded In the past 12 months has [facility] [employer], gas, oil, or water company threatened to shut off services in your home? No 03/29/2024 Social Connection and Isolation Panel Answer Date Recorded In a typical week, how many times do you talk on the phone with family, friends, or neighbors? 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 file No t on file documented as of this encounter Miscellaneous Notes * Telephone Encounter - Nati Garcia PAC - 05/16/2025 12:57 PM CST 05-12-2025 CXR Александр (I think ER) CHF noted Possible pneumonia Assure she is seeing CARDIO for her CHF and has upcoming appt Schedule her to see me this week for an ER f/u to check on the pneumonia GER SEQUINS documented in this encounter Plan of Treatment Upcoming Encounters Date Type Department Care Team (Late st Contact Info) Description 05/26/2025 2:00 PM SLINGER SEQUINS Office Visit [facility] - Primary Care - [place] [address] [place] [id number] Nati Garcia PAC [address] [place] [address] 10/25/2025 11:00 AM CDT Office Visit [facility] [address] [place] [phone] Hector Rendon MD [address] [place] [address] Discharge Disposition: Discharged to home or Selfcare 10/25/2025 11:30 AM CDT Clinical Support [facility] [address] [place] [address] Hector Rendon MD [address] [place] [address] Discharge Disposition: Discharged to home or Selfcare [...] documented as of this encounter Care Teams Merchandise Stocker Relationship Specialty Start Date End Date Nati Garcia PAC [address] [address] PCP - General Physician Shirt Folder 03/24/24 Juan David Ashby MD Consulting Physician General Surgery 12/27/19 Hector Rendon MD [address] [place] [address] Consulting Physician Medical Oncology 12/27/19 Rohit Cardoso MD [address] [place] [address] Consulting Physician Radiation Oncology 12/27/19 Sung Do MD [address] [facility] [address] [place] [address] Consulting Physician Cardiovascular Disease - Cardiology 12/28/19 Shawn Alves MD [address] [address] Consulting Physician Colon and Rectal Surgery 05/10/22 documented as of this encounter
--- OUTSIDE RECORDS SUMMARY | 2025-05-17 12:16 | XMS_ITS | Encounter Summary ---
Author Organization [facility] Address [address] [place] [address] Phone Care Team Providers Care Cognos Developer Name Role Phone Symone Juan David Fisher MD Unavailable Hector Rendon MD Unavailable [phone] Rohit Cardoso MD Unavailable [phone] Sung Do MD Unavailable Silvano Byrne MD Primary Care Provider [phone] Shawn Alves MD Unavailable Nati Garcia [facility] Primary Care Pro vider Reason for Visit * Reason Comments Medication Refill Encounter Details Date Type Department Care Team (Late st Contact Info) Description 05/11/2021 [facility] [address] [place] [address] Hector Rendon MD [address] [place] [address] Medication Refill Social History Tobacco [...] Start Date 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 file No [...] st Contact Info) Description 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 Office Visit [facility] - Primary Care - [place] [place] [phone] Nati Garcia PAC [address] [place] [address] 10/25/2025 11:00 AM CDT Office Visit [facility] Oncology Services [address] [place] [address] Hector Rendon MD [address] [place] [address] Discharge Disposition: Discharged to home or Selfcare 10/25/2025 11:30 AM CDT Clinical Support [facility] [address] [place] [phone] Hector Rendon MD [address] [place], [place] [phone] Discharge Disposition: Discharged to home or Selfcare [...] documented as of this encounter Care Teams Cognos Developer Relationship Specialty Start Date End Date Silvano Byrne MD [address] [address] PCP - General Family Medicine 02/25/20 03/23/24 Nati Garcia PAC [address] [address] PCP - General Physician Pricing Lead 03/24/24 Juan David Ashby MD Consulting Physician General Surgery 12/27/19 Hector Rendon MD [address] [place] [address] Consulting Physician Medical Oncology 12/27/19 Rohit Cardoso MD [address] [place] [address] Consulting Physician Radiation Oncology 12/27/19 Sung Do MD [address] [address] Consulting Physician Cardiovascular Disease - Cardiology 12/28/19 Shawn Alves MD [address] [address] Consulting Physician Colon and Rectal Surgery 05/10/22 documented as of this encounter
--- OUTSIDE RECORDS SUMMARY | 2025-05-17 12:16 | XMS_ITS | Encounter Summary ---
Author Organization [employer] Care Team Providers Care Emergency Dispatcher Name Role Phone Juan David Ashby MD Unavailable Hector Rendon MD Unavailable [phone] Rohit Cardoso MD Unavailable [phone] Sung Do MD Unavailable [phone] Shawn Alves MD Unavailable Nati aGrcia PAC Primary Care Pro vider Encounter Details Date Type Department Care Team (Latest Contact Info) Description 05/17/2025 Travel Social History Tobacco Use Types Packs/Day Years Used Date Smoking Tobacco: Never Smokeless Tobacco: Never Alcohol Use Standard Drinks/Week Comments Not Currently 0 (1 standard drink = 0.6 oz pur e alcohol) Occasionally on holidays. [facility] Utilities Answer Date Recorded In the past 12 months has e electric, gas, oil, or water company threatened to shut off services in your home? No 03/29/2024 Social Connection and Isolation Panel Answer Date Recorded In a typical week, how many times do you talk on the phone with family, friends, or neighbors? 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 Office Visit [facility] Primary [facility] [address] [place] [address] Nati Garcia PAC [address] [place] [address] 10/25/2025 11:00 AM CDT Office Visit [facility] Oncology Services [address] [place] [phone] Hector Rendon MD [address] [place] [address] Discharge Disposition: Discharged to home or Selfcare 10/25/2025 11:30 AM CDT Clinical Support [facility] Services [address] [place] [phone] Hector Rendon MD [address] [place] [address] Discharge Disposition: Discharged to home or Selfcare [...] documented as of this encounter Care Teams Emergency Dispatcher Relationship Specialty Start Date End Date Nati Garcia PAC [address] [address] PCP - General Physician Telecommunications Linesworker 03/24/24 Juan David Ashby MD Consulting Physician General Surgery 12/27/19 Hector Rendon MD [address] [place], [place] [phone] Consulting Physician Medical Oncology 12/27/19 Rohit Cardoso MD [address] [place], [place] [address] Consulting Physician Radiation Oncology 12/27/19 Sung Do MD [address] [address] Consulting Physician Cardiovascular Disease - Cardiology 12/28/19 Shawn Alves MD [address] [address] Consulting Physician Colon and Rectal Surgery 05/10/22 documented as of this encounter
--- OUTSIDE RECORDS SUMMARY | 2025-05-17 12:16 | XMS_ITS | Data Portability ---
Author Organization [place] [employer] [facility], Main Office Address [address] [place] [phone] Care Team Providers Care Records Section Supervisor Name Role Phone [facility] [place] Primary Care Provider MATTHEW MURO Referring Provider TYSON FERRARA Referring Provider Assessment Encounter Date Assessment Date Assessment LastModified by Organization Details LastModified Time 09/11/2021 09/11/2021 labs 09/12 ultrasound results reviewed Reviewed case with nursing and therapy [email or web address] Not available 09/18/2021 16:57:10 09/13/2021 09/13/2021 labs reviewed Urged patient to wear compression hose as she is not wearing them today Reviewed case with nursing and therapy [email or web address] Not available 09/18/2021 17:01:56 09/18/2021 09/18/2021 labs reviewed edema improving Reviewed case with nursing and therapy [email or web address] Not available 09/18/2021 17:06:15 09/21/2021 09/21/2021 D/C 2 tab option for PRN [place] so pt does not exceed APAP limit. [...] By Organization Details Last Modified Time 09/11/2021 [id number] I spent 30 minutes providing care to the patient today. More than 50% of that time was spent in discussing the expected course of the disease, discussing prognosis, coordinating care and counseling of the patient/family. [email or web address] Not available 09/18/2021 16:57:07 09/13/2021 [id number] I spent 30 minutes providing care to the patient today. More than 50% of that time was spent in discussing the expected course of the disease, discussing prognosis, coordinating care and counseling of the patient/family. Not available 09/18/2021 17:02:37 09/18/2021 [id number] I spent 25 minutes providing care to the patient today. More than 50% of that time was spent in discussing the expected course of the disease, discussing prognosis, coordinating care and counseling of the patient/family. [email or web address] Not available 09/18/2021 17:07:00 09/21/2021 [id number] I spent 26 minutes providing care to the patient today. More than 50% of that time was spent in discussing the expected course of the disease, discussing prognosis, coordinating care and counseling of the patient/family. Not available 09/22/2021 13:12:51 09/25/2021 [id number] I spent 35 minutes providing care to the patient today. More than 50% of that time was spent in discussing the expected course of the disease, discussing prognosis, coordinating care and counseling of the patient/family. [email or web address] Not available 10/06/2021 08:24:37 Reason for Referral None Reported. Results Created Date Observation Date Name Description Value Unit Range Abnormal Flag Note LastModifiedBy Organization Detail LastModifiedTime 09/19/19 22 US, duple x, venou s, extre mity, unila teral No observ ation record ed. [email or web address] Not Available 2021 16:54:31 Result Notes None recorded. Problems Name Problem SNOMED Code Status Onset Date Resolution Date Notes Provider Name and Address Organization Details Recorded Time Constipatio n 31403604 Active 2021 Tommie [place] - [facility] 2 09:57:59 Postoperati ve pain 304928256 Active 2021 Tom[place] [facility] 2 00:04:47 Osteoarthri tis of right hip joint 5298439597901 07 Active 2021 Tommie Pineda [place] [facility] 2 00:04:51 Essential hypertensio n 00291951 Active 2021 Tommie Pined[place] [facility] 2 00:05:00 Asthma 799620405 Active 2021 Tommie Pined[place] [facility] 2 00:05:02 Anemia 734420528 Active 2021 Tommie Pined[place] [facility] 2 00:05:06 Hypothyroid ism 12997161 Active 2021 Tommie Pined[place] [facility] 2 00:05:14 History of malignant neoplasm of breast 950598872 Active 2021 Tommie Pined[place] [facility] 2 00:05:15 Swelling of lower leg 187941645 Active 2021 Tommie Pineda [place] [...] Name and Address Organization Details Recorded Time 42443 amitripty line medicatio n Not available Not available Not available 08/28/2021 704 RxNorm Aracely Li [place] [facility] 2 20:07:36 18600 cyclobenz aprine medicatio n Not available Not available Not available 08/28/2021 40642 RxNorm Aracely [place] [facility] 2 20:08:01 97814 diclofena c Not available Not available Not available Not available 08/28/2021 3355 RxNorm Aracely [place] [facility] 2 20:08:06 08656 levofloxa milena medicatio n Not available Not available Not available 08/28/2021 51713 RxNorm Aracely [place] [facility] 2 20:08:13 39492 metaxalon e medicatio n Not available Not available Not available 08/28/2021 06296 RxNorm Aracely [place] [facility] 2 20:08:20 23643 misoprost ol medicatio n Not available Not available Not available 08/28/2021 64031 RxNorm Aracely [place] [facility] 2 20:08:28 04994 naproxen medicatio n Not available Not available Not available 08/28/2021 7258 RxNorm Aracely [place] [facility] 2 20:08:37 05806 orphenadr ine Not available Not available Not available Not available 08/28/2021 7715 RxNorm Aracely [place] [facility] 2 20:08:44 78319 rofecoxib medicatio n Not available Not available Not available 08/28/2021 62456 8 RxNorm Aracely [place] [facility] 2 20:08:55 22171 tramadol medicatio n Not available Not available Not available 08/28/2021 05859 RxNorm Aracely [place] [facility] [...] Updated DateTime 2 160.02 cm 23.7 kg/m2 58259.9 4 g 69 /min 98 % 98 % 24 /min 98 [degF] 126/63 mm[Hg] [facility] 11:[facility]28 Date Recorded Body height Body mass index (BMI) Body weight Heart rate Oxygen saturation Oxygen saturation in Arterial blood by Pulse oximetry Respiratory rate Body temperature Systolic And Diastolic Provider Name and Address Organization Details Last Updated DateTime 2 160.02 cm 24.1 kg/m2 10710.6 4 g 78 /min 96 % 96 % 20 /min 97.2 [degF] 123/63 mm[Hg] Tommie Mejiaer [facility] 2 16:58:35 Date Recorded Body height Heart rate Oxygen saturation Oxygen saturation in Arterial blood by Pulse oximetry Respiratory rate Body temperature Systolic And Diastolic Provider Name and Address Organization Details Last Updated DateTime 2 160.02 cm 93 /min 96 % 96 % 18 /min 97.6 [degF] 118/66 mm[Hg] Tommie Mejiaer [facility] 2 17:03:41 Date Recorded Body height Body mass index (BMI) Body weight Heart rate Oxygen saturation Oxygen saturation in Arterial blood by Pulse oximetry Respiratory rate Body temperature Systolic And Diastolic Provider Name and Address Organization Details Last Updated DateTime 2 160.02 cm 23 kg/m2 39165.0 1 g 86 /min 96 % 96 % 18 /min 97.5 [degF] 123/72 mm[Hg] Jaye Ma, BUTCH [address] [place], [address] [place] [address] 2 11:02:22 Date Recorded Body height Heart [...] Social History Question Answer Notes LastModified by [facility] Details LastModified Time Tobacco Smoking Status Never Smoker Tommie Pineda [place], [place] - [facility] 08/31/2021 12:08:40 Do You Have An Advance Directive? Yes [email or web address] Information not available 08/31/2021 Are You Blind Or Do You Have Difficulty Seeing? No [email or web address] Information not available 08/31/2021 What Is Your Code Status? Full Code Information not available 08/31/2021 Are You Deaf Or Do You Have Serious Difficulty Hearing? 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 Yes Information not available 08/31/2021 Live Alone Or With Others? Alone Information not available 08/28/2021 Do You Have A Caregiver? No [email or web address] Information not available 08/31/2021 Do You Have A Medical Power Of Director And Professor? Yes Sister ISMAEL Mandujano Information not available 08/31/2021 How Many Children Do You Have? 0 [email or web address] Information not available 08/31/2021 What Is Your Relationship Status? [email or web address] Information not available 08/31/2021 Has Tobacco Cessation Counseling Been Provided? No [email or web address] Information not available 08/31/2021 Do You Have Difficulty Walking Or Climbing Stairs? Yes Requires [email or web address] Information not available 08/31/2021 Sex: Unknown Functional Status Question Answer Note LastModified by [facility] Details LastModified Time Do you use any illicit or recreational drugs? No [email or web address] Information not available 08/31/2021 What is your level of alcohol consumption? None [email or web address] Information not available 08/31/2021 Are you able to walk independently without assistance or assistive devices? YESASSIST Pt requires wheeled walker and min assist Information not available 08/28/2021 Do you have difficulty doing errands alone? Yes currently prior to surgery no [email or web address] Information not available 08/31/2021 Are you able to care for yourself independently? Yes [email or web address] Information not available 08/31/2021 Do you have difficulty dressing, bathing, grooming, or toileting? Yes Pt requires contact guard assist in grooming and min assist in dressing Information not available 08/28/2021 Mental Status Question Answer Note LastModified by Organization D etails LastModified Time Do you have difficulty concentrating, remembering or making decisions? No [email or web address] Information no t available 08/31/2021 Family History Relationship Description Onset Age of this Age Resolved Age Notes LastModified by Organization Details LastModified Time Paternal Grandmother Primary malignant neoplasm of skin of breast [email or web address] Not available 2021 12:07:31 Father Malignant neoplasm of kidney [email or web address] Not available 2021 12:07:47 Brother Malignant neoplasm of colon Not available 2021 12:08:18 Medical [...] ICD10 Code Diagnosis IMO Codes Diagnosis Note [id number] Damaris Amor DO [address] [address] 08/29/2021 02:15:15 09/09/2021 00:44:23 Osteoarthritis of right hip joint 4801588598 12059 M16.11 s/p right hip replacemen t per dr. gurdeep thacker hip precaution s, prn norco for painasa for dvt prophylaxi stherapy, wound caref/u with ortho as scheduled 09/10 Essential hypertension 31369080 I10 blood pressures have been low since admission - will decrease metoprolol to 25 mg bid with hold parameters , continue lasix 20 mg daily and continue to trend Asthma 705456781 J45.90 9 continue breo daily, prn albuterole ncouraged ISwill have respirator y follow Anemia 172540030 D64.9 continue iron replacemen t, trend cbc Hypothyroidism 81210778 E03.9 presumed stable - continue synthroid Constipation 85902534 K5 9.00 continue bid senna s, additional meds available via standing ordres History of malignant neoplasm of breast 003764097 Z85.3 continue femara - outpt f/u with oncology [id number] TOMMIE PINEDA NP [facility] [address] [place] [address] 08/31/2021 07:28:31 09/11/2021 09:18:30 Osteoarthritis of right hip joint 7717561453 21313 M16.11 s/p right hip replacemen t per dr. gurdeep thacker hip precaution s, prn norco for painasa for dvt prophylaxi stherapy, wound caref/u with ortho as scheduled 09/10 Essential hypertension 80581798 I10 blood pressures have been low since admission - will decrease metoprolol to 25 mg bid with hold parameters , continue lasix 20 mg daily and continue to trend Asthma 214052029 J45.90 9 continue breo daily, prn albuterole ncouraged ISRT without concerns Anemia 684241736 D64.9 continue iron replacemen t, trend cbc Hypothyroidism 68662099 E03.9 presumed stable - continue synthroid Constipation 65039134 K5 9.00 continue bid senna s, additional meds available via standing ordres History of malignant neoplasm of breast 174357818 Z85.3 continue femara - outpt f/u with oncology [id number] TOMMIE PINEDA NP [facility] [address] [place] [address] 09/03/2021 09:57:19 09/11/2021 09:19:48 Constipation 55110647 K59.00 Added Senna plus PRN Postoperative pain 13808 9007 G89.18 increased the amount of time between [place]. Pt. v/u and is agreeable with plan Osteoarthr itis of right hip joint 9287964034 84837 M16.11 s/p right hip replacemen t per dr. gurdeep thacker hip precaution s, prn norco for painasa for dvt prophylaxi stherapy, wound caref/u with ortho as scheduled 3 Essential hypertension 68026707 I10 blood pressures have been low since admission - will decrease metoprolol to 25 mg bid with hold parameters , continue lasix 20 mg daily and continue to trendblood pressure reviewed and remain stable Asthma 198094524 J45.90 9 continue breo daily, prn albuterole ncouraged ISRT without concerns Anemia 748277646 D64.9 continue iron replacemen t, trend cbc; SEE PE Hypothyroidism 57535117 E03.9 presumed stable - continue synthroid History of malignant neoplasm of breast 404248970 Z85.3 continue femara - outpt f/u with oncology At [facility] risk of polypharmacy 012009455 Z91.89 continue with Vitamin C. Monitor side effects of polypharma cy. Vitamin D deficiency 347 38520 E55.9 continue with cholecalci ferol [id number] TOMMIE PINEDA NP [facility] [address] [place] [address] 09/05/2021 23:20:25 09/11/2021 09:20:32 Constipation 78643191 K59.00 Continue with PRN senna pluse Postoperative pain 64892 9007 G89.18 increased the amount of time between [place]. Pt. v/u and is agreeable with plan Osteoarthr itis of right hip joint 4427017254 33031 M16.11 s/p right hip replacemen t per dr. gurdeep thacker hip precaution s, prn norco for painasa for dvt prophylaxi stherapy, wound caref/u with ortho as scheduled 3 Essential hypertension 60736281 I10 blood pressures have been low since admission - will decrease metoprolol to 25 mg bid with hold parameters , continue lasix 20 mg daily and continue to trendblood pressure stable Asthma 649477957 J45.90 9 continue breo daily, prn albuterole ncouraged ISRT without concerns Anemia 281760337 D64.9 continue iron replacemen t, trend cbc; SEE PE Hypothyroidism 09147760 E03.9 presumed stable - continue synthroid History of malignant neoplasm of breast 982018171 Z85.3 continue femara - outpt f/u with oncology [facility] risk of polypharmacy 821385938 Z91.89 continue with Vitamin C. Monitor side effects of polypharma cy. Vitamin D deficiency 347 82256 E55.9 continue with cholecalci ferol [id number] Damaris Amor DO PAC [facility] Therapy [address] [place] [address] 09/06/2021 20:16:54 09/11/2021 09:21:52 Swelling of lower leg 709664925 R22.41 check venous doppler, elevate the legs, add tubi blueprint cutter, increase lasix to 40 mg daily x 3 days Osteoarthr itis of right hip joint 0247407925 05800 M16.11 s/p right hip replacemen t per dr. gurdeep thacker hip precaution s, prn norco for pain - increasing dose to 1-2 tabs every 4 hours prnasa for dvt prophylaxi stherapy, wound caref/u with ortho as scheduled 09/10 Essential hypertension 62524457 I10 decreased metoprolol to 25 mg bid with hold parameters on admission here. continue lasix 20 mg daily (increasin g to 40 mg daily x 3 days) and continue to trend Asthma 822260139 J45.90 9 continue breo daily, prn albuterole ncouraged ISrespirat ory therapy following - respirator y status is stable Anemia 102028735 D64.9 continue iron replacemen t, trend cbc Hypothyroidism 48244395 E03.9 presumed stable - continue synthroid Constipation 25360841 K5 9.00 continue bid senna s, additional meds available via standing orders History of malignant neoplasm of breast 291897191 Z85.3 continue femara - outpt f/u with oncology Postoperative pain 02488 9007 G89.18 [id number] TOMMIE PINEDA, BUT[facility] [address] [place] [address] 09/11/2021 11:31:50 09/19/2021 11:35:49 Swelling of lower leg 617830698 R22.41 3/4 venous ultrasound - negativeel evate the legs, add tubi blueprint cutter, increase lasix to 40 mg daily x 3 days Osteoarthr itis of right hip joint 5580991523 95256 M16.11 s/p right hip replacemen t per dr. gurdeep thacker hip precaution s, prn norco for pain - increasing dose to 1-2 tabs every 4 hours prnasa for dvt prophylaxi stherapy, wound caref/u with ortho as scheduled 09/10 Essential hypertension 91758631 I10 decreased metoprolol to 25 mg bid with hold parameters on admission here. continue lasix 20 mg daily (increasin g to 40 mg daily x 3 days) and continue to trendblood pressure remained stable Asthma 882308358 J45.90 9 continue breo daily, prn albuterole ncouraged ISrespirat ory therapy following - respirator y status is stable Anemia 399523780 D64.9 continue iron replacemen t, trend cbc Hypothyroidism 40538989 E03.9 presumed stable - continue synthroid Constipation 99144845 K5 9.00 continue bid senna s, additional meds available via standing orders History of malignant neoplasm of breast 619166221 Z85.3 continue femara - outpt f/u with oncology Postoperative pain 33862 9007 G89.18 increased the amount of time between [place].Pt. v/u and is agreeable with plan [id number] TOMMIE PINEDA NP [facility] [address] [place] [address] 09/13/2021 23:46:10 09/19/2021 11:36:45 Swelling of lower leg 470359896 R22.41 3/4 venous ultrasound - negativeel evate the legs, add tubi blueprint cutter, increase lasix to 40 mg daily x 3 days Osteoarthr itis of right hip joint 0619811343 28494 M16.11 s/p right hip replacemen t per [...] maintianin g hip precaution s Essential hypertension 40592726 I10 decreased metoprolol to 25 mg bid with hold parameters on admission here. continue lasix 20 mg daily continue to trendblood pressure remained stable Asthma 756534357 J45.90 9 continue breo daily, prn albuterole ncouraged ISrespirat ory therapy following - respirator y status is stable Anemia 793109824 D64.9 continue iron replacemen t, trend cbc Hypothyroidism 19433333 E03.9 presumed stable - continue synthroid Constipation 89044162 K5 9.00 continue bid senna s, additional meds available via standing orders History of malignant neoplasm of breast 580355725 Z85.3 continue femara - outpt f/u with oncology Postoperative pain 48418 9007 G89.18 increased the amount of time between [place].Pt. v/u and is agreeable with plan [id number] TOMMIE PINEDA NP [facility] [address] [place] [address] 09/18/2021 17:03:15 09/24/2021 10:32:00 Swelling of lower leg 836921100 R22.41 3/4 venous ultrasound - negativeel evate the legs, add tubi blueprint cutter Osteoarthr itis of right hip joint 5105188247 64162 M16.11 s/p right hip replacemen t per dr. gurdeep thacker hip precaution s, prn norco for pain - increasing dose to 1-2 tabs every 4 hours prnasa for dvt prophylaxi stherapy, wound caref/u with ortho as scheduled Essential hypertension 98260426 I10 decreased metoprolol to 25 mg bid with hold parameters on admission here. continue lasix 20 mg daily continue to trendblood pressure remained stable Asthma 247749081 J45.90 9 continue breo daily, prn albuterole ncouraged ISrespirat ory therapy following - respirator y status is stable Anemia 503676062 D64.9 continue iron replacemen t, trend cbc Hypothyroidism 52133857 E03.9 presumed stable - continue synthroid Constipation 85849636 K5 9.00 continue bid senna s, additional meds available via standing orders- patient did report mild constipati on today but she deferred any daily stool softeners at this time. History of malignant neoplasm of breast 593597745 Z85.3 continue femara - outpt f/u with oncology Postoperative pain 85333 9007 G89.18 increased the amount of time between [place].Pt. v/u and is agreeable with plan [id number] Damaris Amor, PAC [facility] [address] [place] [address] 09/21/2021 10:46:05 09/24/2021 10:33:40 Swelling of lower leg 397419991 R22.41 3/4 venous ultrasound - negative.I mproved. Continue compressio n and elevate legs at rest. Osteoarthr itis of right hip joint 9536595160 97226 M16.11 s/p right hip replacemen t per dr. gurdeep thacker hip precaution s.Schedule d APAP for pain. Decrease PRN [place] to 1 tab PRN so as not to exceed daily APAP limit. Pt has never requested 2 tabs anyway.Con tinue asa for dvt prophylaxi sContinue therapy, wound caref/u with ortho as scheduled Essential hypertension 62205428 I10 Decreased metoprolol to 25 mg bid with hold parameters on admission here.Stabl e. Continue Lasix & Metoprolol .Continue to trend blood pressures, monitor lytes and renal function, and adjust meds as clinically indicated. Asthma 523814385 J45.90 9 Stable. Continue breo daily, prn albuterole ncouraged ISrespirat ory therapy following - respirator y status is stable Anemia 739192636 D64.9 Stable. Continue iron replacemen t, trend cbc Hypothyroidism 41440495 E03.9 presumed stable - continue synthroid Constipation 57138747 K5 9.00 Stable. Continue PRN senna s. History of malignant neoplasm of breast 238517715 Z85.3 Stable. Continue Femara - outpt f/u with oncology [id number] TOMMIE PINEDA, [employer] [facility] [address] [place] [address] 09/25/2021 16:44:38 10/14/2021 07:44:32 Osteoarthritis of right hip joint 0496540075 92203 M16.11 s/p right hip replacemen t per dr. ferraracon tinue hip precaution s.Schedule d APAP for pain. continue with PRN [place] (pt. will go home with her supply here)Matti nue asa for dvt prophylaxi sContinue therapy, wound care at home with home healthf/u with ortho as scheduled Essential hypertension 61490855 I10 Stable with decrease in metoprolol . Continue Lasix & Metoprolol . Continue to trend blood pressures, monitor lytes and renal function, and adjust meds as clinically indicated. Swelling of lower leg 44 7665468 R22.41 3/4 venous ultrasound - negative.I mproved. Continue compressio n and elevate legs at rest. - pt. has been doing a good job at this Asthma 180583854 J45.90 9 Stable. Continue breo daily, prn albuterole ncouraged ISrespirat ory therapy following - respirator y status is stable Anemia 654098903 D64.9 Stable. Continue iron replacemen t, trend cbc Hypothyroidism 97927912 E03.9 presumed stable - continue synthroid Constipation 98377641 K5 9.00 Stable. Continue PRN senna s. History of malignant neoplasm of breast 806096972 Z85.3 Stable. Continue Femara - outpt f/u with oncology Health Concerns Section Related Observation LastModified by Organization Detai ls LastModified Time None Recorded Concern Status LastModified by Organization Details LastModified Time None Recorded Advance Directives Directive Y: Payers Insurance Date Sequence Insurance Name Policy Number Policy Benjamin Covered Member ID Benjamin Member ID Guarantor Name 10/14/2021 2 [place] [employer] Mariam Parish [id number] Mariam Parish 09/06/2021 1 [place] Mariam Parish [id number] Mariam Parish Notes Date Note Type Note Provider Name and Address Organization Details Recorded Time 09/11/2021 text/html ROS as noted in the HPI 61 y/o [place] white female admitted to [facility] for post acute rehab subsequent to an inpatient stay at [facility] 08/27-08/28/21 for an elective right hip [...] any other concerns this time Tommie casiano [employer] [facility] 09/18/2021 16:57:25 09/13/2021 text/html ROS as noted in the HPI 61 y/o [place] white female admitted to [facility] for post acute rehab subsequent to an inpatient stay at [facility] 08/27-08/28/21 for an elective right hip [...] or complaints at this time. Tommie casiano [place] [facility] 09/18/2021 17:02:50 09/18/2021 text/html ROS as noted in the HPI 61 y/o [place] white female admitted to [facility] for post acute rehab subsequent to an inpatient stay at [facility] 08/27-08/28/21 for an elective right hip [...] or complaints at this time. Tommie casiano, [facility] 09/18/2021 17:07:12 09/21/2021 text/html ROS [...] does not offer any concerns. Jaye Ma, [facility] [address] [place], [address], [facility] 09/22/2021 13:13:03 09/25/2021 text/html ROS [...] that home visit went well. Tommie casiano, [facility] [employer] [facility] 10/06/2021 08:24:58 OBGyn Episode No OBEpisode recorded.
--- NOTE | 2025-05-17 12:21 | ECG_ITS ---
Test Date: 2025-05-17 12:35:21 Measurements Intervals [place] Rate: 56 P: 0 CO: 0 QRS: 95 QRSD: 145 T: -75 QT: 503 QTc: 486 Interpretive Statements ELECTRONIC VENTRICULAR PACEMAKER ABNORMAL RHYTHM ECG No previous ECG available for comparison Electronically Signed On 05-17-2025 18:06:58 AGRICULTURAL ENGINEERING TECHNICIAN by Vivek Ruiz M.D.
--- OUTSIDE RECORDS SUMMARY | 2025-05-17 12:38 | XMS_ITS | Encounter Summary ---
Author Organization [facility] Address [address] [place] [address] Phone Care Team Providers Care Truss Designer Name Role Phone SymoneJuan David MD Unavailable Hector Rendon MD Unavailable Rohit Cardoso MD Unavailable Sung Do MD Unavailable [phone] Silvano Byrne MD Primary Care Provider Shawn Alves MD Unavailable Nati Garcia [facility] Primary Care Pro vider Reason for Visit * Reason Comments Medication Refill Encounter Details Date Type Department Care Team (Late st Contact Info) Description 02/08/2021 [facility]ill [facility] - [place] Guido Staples [address] [place] [address] Silvano Byrne MD [address] [place] [address] Medication Refill Social History Tobacco Use Types [...] Start Date 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 Showing future appointments within next 90 days and meeting all other requirements documented in this encounter Plan of Treatment Upcoming Encounters Date Type Department Care Team (Late st Contact Info) Description 05/26/2025 2:00 PM WIRE SPIRAL BINDER Office Visit [facility] - Primary Care - [place] [address] [place] [address] Nati Garcia, DEEDEE [address] [place] [address] 10/25/2025 11:00 AM CDT Office Visit [facility] Oncology Services [address] [place] [address] Hector Rendon MD [address] [place] [address] Discharge Disposition: Discharged to home or Selfcare 10/25/2025 11:30 AM CDT Clinical Support [facility] Oncology Services [address] [place] [address] Hector Rendon MD [address] [place] [address] Discharge Disposition: Discharged to home or Selfcare documented as of this encounter Visit Diagnoses Not on filedocumented in this encounter Care Teams Truss Designer Relationship Specialty Start Date End Date Silvano Byrne MD [address] [address] PCP - General Family Medicine 02/25/20 03/23/24 Nati Garcia, PAC [address] [address] PCP - General Physician Client Analyst 03/24/24 Juan David Ashby MD Consulting Physician General Surgery 12/27/19 Hector Rendon MD [address] [place] [address] Consulting Physician Medical Oncology 12/27/19 Rohit Cardoso MD [address] [place] [address] Consulting Physician Radiation Oncology 12/27/19 Sung Do MD [address] [address] Consulting Physician Cardiovascular Disease - Cardiology 12/28/19 Shawn Alves MD [address] [address] Consulting Physician Colon and Rectal Surgery 05/10/22 documented as of this encounter
--- OUTSIDE RECORDS SUMMARY | 2025-05-17 12:38 | XMS_ITS | Encounter Summary ---
Author Organization [facility] Address [address] [place] [address] Phone Care Team Providers Care Ore Buyer Name Role Phone Symone Juan David Fisher MD Unavailable Hector Rendon MD Unavailable [phone] Rohit Cardoso MD Unavailable Sung Do MD Unavailable [phone] Silvano Byrne MD Primary Care Provider [phone] Shawn Alves MD Unavailable Nati Garcia [facility] Primary Care Pro vider Reason for Visit * Reason Comments Medication Refill Encounter Details Date Type Department Care Team (Late st Contact Info) Description 11/12/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 on file Not on file No t on file documented as of this encounter Miscellaneous Notes * Telephone Encounter - Radha Evans RN - 11/13/2020 8:14 AM CDT Refilled Letrozole documented in this encounter Plan of Treatment Upcoming Encounters Date Type Department Care Team (Late st Contact Info) Description 05/26/2025 2:00 PM INTERPRETER DEAF Office Visit [facility] - Primary Care - [place] [address] [place] [address] Ntai Garcia PAC [address] [place] [address] 10/25/2025 11:00 AM CDT [facility] [address] [place] [address] Hector Rendon MD [address] [place] [address] Discharge Disposition: Discharged to home or Selfcare 10/25/2025 11:30 AM CDT Clinical Support [facility] Oncology Services [address] [place] [address] Hector Rendon MD [address] [place] [address] Discharge Disposition: Discharged to home or Selfcare documented as of this encounter Visit Diagnoses Not on filedocumented in this encounter Care Teams Ore Buyer Relationship Specialty Start Date End Date Silvano Byrne MD [address] [facility] [address] [place] [address] PCP - General Family Medicine 02/25/20 03/23/24 Nati Garcia PAC [address] [address] PCP - General Physician Hearing Aid Consultant 03/24/24 Juan David Ashby MD Consulting Physician General Surgery 12/27/19 Hector Rendon MD [address] [place] [address] Consulting Physician Medical Oncology 12/27/19 Rohit Cardoso MD [address] [place] [address] Consulting Physician Radiation Oncology 12/27/19 Sung Do MD [address] [facility] [address] [place] [address] Consulting Physician Cardiovascular Disease - Cardiology 12/28/19 Shawn Alves MD [address] [address] Consulting Physician Colon and Rectal Surgery 05/10/22 documented as of this encounter
--- OUTSIDE RECORDS SUMMARY | 2025-05-17 12:38 | XMS_ITS | Encounter Summary ---
Author Organization [facility] Healthcare Address [address] [place] [address] Care Team Providers Care Screw Machine Tender Name Role Phone Jeremy Stinson MD Primary Care Provider [phone] Sung Do MD Unavailable Mer Szymanski MD Primary Care Provider Sung Do MD Primary Care Provider + Silvano Byrne MD Primary Care Provider [phone] Saul Marquez MD Unavailable [phone] Nati Garcia Primary Care Prov ider Encounter Details Date Type Department Care Team (Late st Contact Info) Description 10/20/2018 Telephone [facility] Cardiac Testing [address] [facility] [address] [place] [address] Rowan Correa RN Social History Tobacco Use Types Packs/Day Years Used Date Smoking Tobacco: Never Smokeless Tobacco: Never Alcohol Use Standard Drinks/Week Comments No 0 (1 standard drink = 0.6 oz pur e alcohol) Comments No Sex and Gender Information Value Date Recorded Sex Assigned at Not on file Legal Sex Female 12:19 AM NATURAL RESOURCES SPECIALIST Gender Identity Not on file Sexual [...] on filedocumented in this encounter Care Teams Screw Machine Tender Relationship Specialty Start Date End Date Jeremy Stinson MD [address] [place] [address] PCP - General 11/06/16 04/29/19 Mer Szymanski MD [address] [place] [address] PCP - General Family Medicine 04/30/19 03/28/20 Sung Do MD [address] [place] [address] PCP - General Cardiology 03/29/20 03/29/20 Silvano Byrne MD [address] [place] [address] [address] PCP - General Family Medicine 03/30/20 10/13/24 Nati Garcia PA [address] [place] [address] [address] PCP - General Neurosurgery 10/14/24 Sung Do MD [address] [place] [address] Consulting Physician Cardiology 10/16/18 Saul Marquez MD [address] [address] Surgeon Orthopedic Surgery 08/28/21 documented as of this encounter
--- OUTSIDE RECORDS SUMMARY | 2025-05-17 12:38 | XMS_ITS | Encounter Summary ---
Author Organization [facility] Address [address] [place] [address] Phone Care Team Providers Care Service Engine Repairer Name Role Phone Symone Juan David Fisher MD Unavailable Hector Rendon MD Unavailable Rohit Cardoso MD Unavailable [phone] Sung Do MD Unavailable Silvano Byrne MD Primary Care Provider Shawn Alves MD Unavailable Nati Garcia [facility] Primary Care Pro vider Reason for Visit * Reason Comments Medication Refill Encounter Details Date Type Department Care Team (Late st Contact Info) Description 04/24/2023 Refill [facility] - Family Medicine [facility] [address] [place] [address] Silvano Byrne MD [address] [place] [address] Medication Refill Social History Tobacco Use Types [...] Start Date 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 on file Not on file [...] st Contact Info) Description 05/26/2025 2:00 PM MOTOR PATROL OPERATOR Office Visit [facility] - Primary Care - [place] [address] [place] [address] Nati Garcia, DEEDEE [address] [place] [address] 10/25/2025 11:00 AM CDT Office Visit [facility] Oncology Services [address] [place] [address] Hector Rendon MD [address] [place] [address] Discharge Disposition: Discharged to home or Selfcare 10/25/2025 11:30 AM CDT Clinical Support [facility] Oncology Services [address] [place] [address] Hector Rendon MD [address] [place] [address] Discharge Disposition: Discharged to home or Selfcare [...] documented as of this encounter Care Teams Service Engine Repairer Relationship Specialty Start Date End Date Silvano Byrne MD [address] [facility] [address] [place] [address] PCP - General Family Medicine 02/25/20 03/23/24 Nati Garcia, DEEDEE [address] [address] PCP - General Physician Budget Coordinator 03/24/24 Juan David Ashby MD Consulting Physician General Surgery 12/27/19 Hector Rendon MD [address] [place] [address] Consulting Physician Medical Oncology 12/27/19 Rohit Cardoso MD [address] [place] [address] Consulting Physician Radiation Oncology 12/27/19 Sung Do MD [address] [address] Consulting Physician Cardiovascular Disease - Cardiology 12/28/19 Shawn Alves MD [address] [address] Consulting Physician Colon and Rectal Surgery 05/10/22 documented as of this encounter
--- OUTSIDE RECORDS SUMMARY | 2025-05-17 12:38 | XMS_ITS | Encounter Summary ---
Author Organization [facility] Address [address] [place] [address] Phone Care Team Providers Care Rubbing Bed Operator Name Role Phone Symone Juan David Fisher MD Unavailable Hector Rendon MD Unavailable Rohit Cardoso MD Unavailable Sung Do MD Unavailable Silvano Byrne MD Primary Care Provider Shawn Alves MD Unavailable Nati Garcia [facility] Primary Care Pro vider Reason for Visit * Reason Comments Medication Refill Encounter Details Date Type Department Care Team (Late st Contact Info) Description 04/04/2022 Refill [facility] - Family Medicine [facility] [address] [place] [phone] Silvano Byrne MD [address] [place] [address] Medication Refill Social History Tobacco Use Types [...] 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 Date 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 on file Not on file No [...] Provider Dept 04/22/22 Appointment Silvano Byrne MD [facility] [place] Showing future appointments within next 90 days and meeting all other requirements documented in this encounter Plan of Treatment Upcoming Encounters Date Type Department Care Team (Late st Contact Info) Description 05/26/2025 2:00 PM NAVAL AIRCREWMAN HELICOPTER Office Visit [facility] Primary Care [place] [address] [place] [address] Nati Garcia, [facility] [address] [place] [address] 10/25/2025 11:00 AM CDT Office Visit [facility] Oncology Services [address] [place] [address] Hector Rendon MD [address] [place] [address] Discharge Disposition: Discharged to home or Selfcare 10/25/2025 11:30 AM CDT Clinical Support [facility] Oncology Services [address] [place] [address] Hector Rendon MD [address] [place] [address] Discharge Disposition: Discharged to home or Selfcare [...] documented as of this encounter Care Teams Rubbing Bed Operator Relationship Specialty Start Date End Date Silvano Byrne MD [address] [facility] [address] [place] [address] PCP - General Family Medicine 02/25/20 03/23/24 Nati Garcia PAC [address] [address] PCP - General Physician Manager Human Resources 03/24/24 Juan David Ashby MD Consulting Physician General Surgery 12/27/19 Hector Rendon MD [address] [place] [address] Consulting Physician Medical Oncology 12/27/19 Rohit Cardoso MD [address] [place] [address] Consulting Physician Radiation Oncology 12/27/19 Sung Do MD [address] [facility] [address] [place] [address] Consulting Physician Cardiovascular Disease - Cardiology 12/28/19 Shawn Alves MD #[address] [address] Consulting Physician Colon and Rectal Surgery 05/10/22 documented as of this encounter
--- OUTSIDE RECORDS SUMMARY | 2025-05-17 12:38 | XMS_ITS | Encounter Summary ---
Author Organization [facility] Healthcare Address [address] [place] [address] Care Team Providers Care Sail Finisher Machine Name Role Phone Jeremy Stinson MD Primary Care Provider + [phone] Sung Do MD Unavailable [phone] Mer Szymanski MD Primary Care Provider Sung Do MD Primary Care Provider + Silvano Byrne MD Primary Care Provider [phone] Saul Marquez MD Unavailable [phone] Nati Garcia Primary Care Prov ider Encounter Details Date Type Department Care Team (Late st Contact Info) Description 09/14/[address] [facility] Imaging and Radiology [address] [place] [address] [place] [address] [address] Social History Tobacco Use Types Packs/Day Years Used Date Smoking Tobacco: Never Smokeless Tobacco: Never Alcohol Use Standard Drinks/Week Comments No 0 (1 standard drink = 0.6 oz pur e alcohol) Comments No Sex and Gender Information Value Date Recorded Sex Assigned at Not on file Legal Sex Female 12:19 AM DRYING ROOM ATTENDANT Gender Identity Not on file Sexual Orientation Not on file documented as of this encounter Plan of Treatment Not on file documented as of this encounter Visit Diagnoses Not on filedocumented in this encounter Care Teams Sail Finisher Machine Relationship Specialty Start Date End Date Jeremy Stinson MD [address] [place] [address] PCP - General 11/06/16 04/29/19 Mer Szymanski MD [address] [place] [address] PCP - General Family Medicine 04/30/19 03/28/20 Sung Do MD [address] [place] [address] PCP - General Cardiology 03/29/20 03/29/20 Silvano Byrne MD [address] [address] PCP - General Family Medicine 03/30/20 10/13/24 Nati Garcia PA [address] [address] PCP - General Neurosurgery 10/14/24 Sung Do MD [address] [place] [address] Consulting Physician Cardiology 10/16/18 Saul Marquez MD [address] [address] Surgeon Orthopedic Surgery 08/28/21 documented as of this encounter
--- OUTSIDE RECORDS SUMMARY | 2025-05-17 12:38 | XMS_ITS | Encounter Summary ---
Author Organization [facility] Healthcare Address [address] [place] [address] Care Team Providers Care Plasterer Foreman Name Role Phone Sung Do MD Unavailable Saul Marquez MD Unavailable Nati Garcia Primary Care Prov ider Encounter Details Date Type Department Care Team (Late st Contact Info) Description 05/13/2025 Telephone [facility] Cardiology [address] [facility] [address] [address] Rosa Tellez NP [address] [place] [address] Social History Tobacco Use Types [...] on file Legal Sex Female 12:19 AM PLYWOOD LAYUP LINE CORE FEEDER Gender Identity Not on file Sexual Orientation [...] that she is headed to ED. Contact: OOD LAYUP LINE CORE FEEDER * Telephone Encounter - Trisha Olsen RN - 05/13/2025 11:47 AM PLYWOOD LAYUP LINE CORE FEEDER Spoke to DJ and reviewed the above response from Dr Lewis's office and CT, she verbalized understandingand will seek treatment if any worsening of symptoms OOD LAYUP LINE CORE FEEDER * Telephone Encounter - Rosa Tellez NP - 05/13/2025 11:14 AM PLYWOOD LAYUP LINE CORE FEEDER Please let ROBI know what you were [...] an antibiotic to treat pneumonia. Thank you. OOD LAYUP LINE CORE FEEDER * Addendum Note - Trisha Olsen RN - 05/13/2025 11:09 AM CSTAddended by: TRISHA OLSEN on: 05/13/2025 11:09 AM Modules accepted: Orders OOD LAYUP LINE CORE FEEDER * Telephone Encounter - Trisha Olsen RN - 05/13/2025 11:02 AM PLYWOOD LAYUP LINE CORE FEEDER Spoke to ROBI who verbalized understanding of all of the above instructions. New script [facility] to [facility] for [facility] day supply, Pt sees Dr Ross at [facility]. I called that office and spoke to Shanta who states heis not in office today. I asked if another provider could review the CXR and was told their office does not do that and it would either wait until Dr Lewis was back in the office or pt would have to be treated by our office. Copy of CXR faxed to [phone], pt has follow up appt with Dr Lewis on 05/20. OOD LAYUP LINE CORE FEEDER * Telephone Encounter - Rosa Tellez NP - 05/13/2025 10:15 AM PLYWOOD LAYUP LINE CORE FEEDER Please call patient's sister ROBI who manages her care. Let her know that the chest x-ray showed CHF,possible pneumonia, and there is a pleural effusion on the right side. I will treat the CHF and will ask her chief airport guide to treat the pneumonia and pleural effusion. She has a chief airport guide at [facility] but I can not remember who it is. Please ask ROBI who the chief airport guide is and call that office to let them know about the chest x-ray and fax over a report that I am asking the chief airport guide to help treat this. For the CHF [...] her again in 1 month. Thank you. OOD LAYUP LINE CORE FEEDER documented in this encounter Plan of Treatment Not on file documented as of this encounter Visit Diagnoses Not on filedocumented in this encounter Care Teams Plasterer Foreman Relationship Specialty Start Date End Date Nati Garcia PA [address] [address] PCP - General Neurosurgery 10/14/24 Sung Do MD Consulting Physician Cardiology 10/16/18 Saul Marquez MD Surgeon Orthopedic Surgery 08/28/21 documented as of this encounter
--- OUTSIDE RECORDS SUMMARY | 2025-05-17 12:38 | XMS_ITS | Encounter Summary ---
Author Organization [facility] Address [address] [place] [address] Phone Care Team Providers Care Technical Sales Engineer Name Role Phone Symone Juan David Fisher MD Unavailable Hector Rendon MD Unavailable Rohit Cardoso MD Unavailable Sung Do MD Unavailable [phone] Silvano Byrne MD Primary Care Provider [phone] Shawn Alves MD Unavailable Nati Garcia 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 Not on file [...] 05/26/23 Office Visit Silvano Byrne MD [facility] [place] 11/18/22 Office Visit Silvano Byrne MD [facility] [place] Showing recent visits within past 365 days and meeting all other requirements Future Appointments Date Type Provider Dept 11/24/23 Appointment Lanie Sol, MANAGER DRUG SAFETY, TACK COVERER [facility] [place] Showing future appointments within next 90 days and meeting all other requirements documented in this encounter Plan of Treatment Upcoming Encounters Date Type Department Care Team (Late st Contact Info) Description 05/26/2025 2:00 PM AUTOMOBILE SERVICE STATION MECHANIC Office Visit [facility] - Primary Care - [place] [facility] [place] [address] Nati Garcia, DEEDEE [address] [place] [address] 10/25/2025 11:00 AM CDT Office Visit [facility] Oncology Services [address] [place] [address] Hector Rendon MD [address] [place] [address] Discharge Disposition: Discharged to home or Selfcare 10/25/2025 11:30 AM CDT Clinical Support [facility] Oncology Services [address] [place] [address] Hector Rendon MD [address] [place] [address] Discharge Disposition: Discharged to home or Selfcare [...] documented as of this encounter Care Teams Technical Sales Engineer Relationship Specialty Start Date End Date Silvano Byrne MD [address] [facility] [address] [place] [address] PCP - General Family Medicine 02/25/20 03/23/24 Nati Garcia, DEEDEE [address] [address] PCP - General Physician Traffic Supervisor 03/24/24 Juan David Ashby MD Consulting Physician General Surgery 12/27/19 Hector Rendon MD [address] [place], [place] [address] Consulting Physician Medical Oncology 12/27/19 Rohit Cardoso MD [address] [place], [place] [address] Consulting Physician Radiation Oncology 12/27/19 Sung Do MD [address] [address] Consulting Physician Cardiovascular Disease - Cardiology 12/28/19 Shawn Alves MD #[address] [address] Consulting Physician Colon and Rectal Surgery 05/10/22 documented as of this encounter
--- OUTSIDE RECORDS SUMMARY | 2025-05-17 12:38 | XMS_ITS | Clinical Summary ---
Author Organization [facility] Address [address] [facility] [place] [address] Care Team Providers Care Employee Relations Administrator Name Role Phone Priya Gallego MD Primary Care Provider + Source Comments [facility],non-owned Affiliates and Associated Physician Practices is amultiple site organization consisting of ambulatory clinics and hospital sitesin [place], [place], [place] and [place]. This disclosure is being madepursuant to the Care Everywhere program and may not contain all information available regarding this patient. Last updated 18.[facility] Virtual [employer] Social History Tobacco Use Types Packs/Day Years Used Date Smoking Tobacco: Never Assessed Comments Unknown Sex and Gender Information Value Date Recorded Sex Assigned at Not on file Legal Sex Female 6:30 AM ASSISTANT SPA DIRECTOR Gender Identity Not on file Sexual [...] MEDICAID - OUT OF STATE Care Teams Employee Relations Administrator Relationship Specialty Start Date End Date Priya Gallego MD [address] [place] [address] PCP - General 12/05/17
--- OUTSIDE RECORDS SUMMARY | 2025-05-17 12:38 | XMS_ITS | Encounter Summary ---
Author Organization [facility] Address [address] [place] [address] Phone Care Team Providers Care Line Repairer Name Role Phone SymoneJuan David MD Unavailable Hector Rendon MD Unavailable [phone] Rohit Cardoso MD Unavailable [phone] Sung Do MD Unavailable [phone] Silvano Byrne MD Primary Care Provider [phone] Shawn Alves MD Unavailable Nati Garcia [facility] Primary Care Pro vider Encounter Details Date Type Department Care Team (Late st Contact Info) Description 11/26/2023 Telephone [facility] [address] [place] [phone] Silvano Byrne MD [address] [place] [address] Social History Tobacco Use Types Packs/Day Years [...] Start Date Job 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 Not on file Not on file No t on file documented as of this encounter Plan of Treatment Upcoming Encounters Date Type Department Care Team (Late st Contact Info) Description 05/26/2025 2:00 PM HOSIERY LOOPER Office Visit [facility] - Primary Care - [place] [address] [place] [address] Nati Garcia, [facility] [address] [place] [address] 10/25/2025 11:00 AM CDT Office Visit [facility] Oncology Services [address] [place] [address] Hector Rendon MD [address] [place] [address] Discharge Disposition: Discharged to home or Selfcare 10/25/2025 11:30 AM CDT Clinical Support [facility] Oncology Services [address] [place] [address] Hector Rendon MD [address] [place] [address] Discharge Disposition: Discharged to home or Selfcare [...] documented as of this encounter Care Teams Line Repairer Relationship Specialty Start Date End Date Silvano Byrne MD [address] [facility] [address] [place] [address] PCP - General Family Medicine 02/25/20 03/23/24 Nati Garcia PAC [address] [address] PCP - General Physician Nurse Orthopaedic 03/24/24 Juan David Ashby MD Consulting Physician General Surgery 12/27/19 Hector Rendon MD [address] [place] [address] Consulting Physician Medical Oncology 12/27/19 Rohit Cardoso MD [address] [place] [address] Consulting Physician Radiation Oncology 12/27/19 Sung Do MD [address] [facility] [address] [place] [address] Consulting Physician Cardiovascular Disease - Cardiology 12/28/19 Shawn Alves MD [address] [address] Consulting Physician Colon and Rectal Surgery 05/10/22 documented as of this encounter
--- OUTSIDE RECORDS SUMMARY | 2025-05-17 12:38 | XMS_ITS | Encounter Summary ---
Author Organization [facility] Address [address] [place] [address] Care Team Providers Care Barrel Washer Name Role Phone Priya Gallego MD Primary Care Provider + Encounter Details Date Type Department Care Team (Late st Contact Info) Description 11/11/2019 Lab Requisition [facility] [address] [place] [address] Michael Vidales MD Social History Tobacco Use Types Packs/Day Years Used Date Smoking Tobacco: Never Assessed Comments Unknown Sex and Gender Information Value Date Recorded Sex Assigned at Not on file Legal Sex Female 6:30 AM SHIP CLEANER Gender Identity Not on file Sexual Orientation [...] Not detected, Invalid 11/11/2019 9:50 PM CDT [facility] MICROBIOLOGY Microbiology SPECIMEN FROM NASOPHARYNGEAL STRUCTURE / Unknown Collection / Unknown 11/11/2019 6:14 AM CDT 11/11/2019 12:53 PM CDT Narrative [facility] MICROBIOLOG[facility] - 11/11/2019 9:50 PM CDT This Real Time RT-PCR assay was developed and its performance characteristics determined by [facility] Microbiology Laboratory. This test has been [...] LAB - MICROBIOLOGY ORDERABL ES Final Result [facility] MICROBIOLOGY [address] [place], [place] [address], [facility] [phone] documented in this encounter Visit Diagnoses Not on filedocumented in this encounter Care Teams Barrel Washer Relationship Specialty Start Date End Date Priya Gallego MD [address] [place] [address] PCP - General 12/05/17 documented as of this encounter
--- OUTSIDE RECORDS SUMMARY | 2025-05-17 12:38 | XMS_ITS | Encounter Summary ---
Author Organization [facility] Address [address] [place] [address] Phone Care Team Providers Care Reach Truck Operator Name Role Phone SymoneJuan David MD Unavailable Hector Rendon MD Unavailable Rohit Cardoso MD Unavailable [phone] Sung Do MD Unavailable Silvano Byrne MD Primary Care Provider Shawn Alves MD Unavailable Nati Garcia [facility] Primary Care Pro vider Reason for Visit * Reason Comments Medication Refill Encounter Details Date Type Department Care Team (Late st Contact Info) Description 07/09/2020 Refill [facility] [address] [place] [address] Silvano Byrne MD [address] [place] [address] Medication Refill Social History Tobacco Use Types [...] 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 No / Unsure 07/10/2020 1:19 PM SPORTS SPECIALIST documented as of this encounter Miscellaneous Notes [...] 6 days ago New onset of headaches [facility] Medical [facility] - Family Medicine - Silvano Longo MD 1 month ago Nonischemic cardiomyopathy (HCC) [facility] - Silvano Longo MD 4 months ago Chronic combined systolic and diastolic congestive heart failure (HCC) [facility] - Silvano Longo MD Upcoming Appointments Future Appointments Today [facility], [facility] In 2 months Ankita Villafuerte APN, PATIENT SERVICES SPECIALIST [facility] Oncology Services, [facility] In 2 months [facility] CC INFUSION CHR3 [facility] Oncology Services, [facility] TEST ENGINEERING TECHNICIAN - Recent and Past Visits Recent Visits Date Type Provider Dept 07/04/20 Office Visit Silvano Byrne MD [facility] 05/29/20 Office Visit Silvano Byrne MD [facility] 02/25/20 Office Visit Silvano Byrne MD [facility] [place] Showing recent visits within past 460 days with a meds authorizing provider and meeting all other requirements Future Appointments No visits were found meeting these conditions. Showing future appointments within next 90 days with a meds authorizing provider and meeting all other requirements Passed - Last BP in normal range BP Readings from Last 1 Encounters: 07/04/20 112/60 TS SPECIALIST documented in this encounter Plan of Treatment Upcoming Encounters Date Type Department Care Team (Late st Contact Info) Description 05/26/2025 2:00 PM SPORTS SPECIALIST Office Visit [facility] - Primary Care - [place] [address] [place] [phone] Nati Garcia, [place] [address] [place] [address] 10/25/2025 11:00 AM CDT Office Visit [facility] Oncology Services [address] [place] [address] Hector Rendon MD [address] [place] [address] Discharge Disposition: Discharged to home or Selfcare 10/25/2025 11:30 AM CDT Clinical Support [facility] Oncology Services [address] [place] [address] Hector Rendon MD [address] [place] [address] Discharge Disposition: Discharged to home or Selfcare documented as of this encounter Visit Diagnoses Not on filedocumented in this encounter Care Teams Reach Truck Operator Relationship Specialty Start Date End Date Silvano Byrne MD [address] [facility] [address] [place] [address] PCP - General Family Medicine 02/25/20 03/23/24 Nati Garcia PAC [address] [address] PCP - General Physician Magazine Feeder 03/24/24 Juan David Ashby MD Consulting Physician General Surgery 12/27/19 Hector Rendon MD [address] [place] [address] Consulting Physician Medical Oncology 12/27/19 Rohit Cardoso MD [address] [place] [address] Consulting Physician Radiation Oncology 12/27/19 Sung Do MD [address] [facility] [address] [place] [address] Consulting Physician Cardiovascular Disease - Cardiology 12/28/19 Shawn Alves MD [address] [address] Consulting Physician Colon and Rectal Surgery 05/10/22 documented as of this encounter
--- OUTSIDE RECORDS SUMMARY | 2025-05-17 12:38 | XMS_ITS | Encounter Summary ---
Author Organization [facility] Address [address] [place] [address] Phone Care Team Providers Care Trim Mounter Name Role Phone Symone Juan David Fisher MD Unavailable [phone] Hector Rendon MD Unavailable [phone] Rohit Cardoso MD Unavailable [phone] Sung Do MD Unavailable Silvano Byrne MD Primary Care Provider Shawn Alves MD Unavailable Nati Garcia [facility] Primary Care Pro vider Reason for Visit * Reason Onset Date Comments Medication Refill 06/19/2020 Encounter Details Date Type Department Care Team (Late st Contact Info) Description 06/19/2020 Refill [facility] [address] [place] [address] Silvano Byrne MD [address] [place] [address] Medication Refill Social History Tobacco Use Types [...] 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 No / Unsure 06/20/2020 11:26 AM TOW MOTOR OPERATOR documented as of this encounter Miscellaneous [...] Visits 3 weeks ago Nonischemic cardiomyopathy (HCC) [facility] - Family Medicine - Silvano Longo MD 3 months ago Chronic combined systolic and diastolic congestive heart failure (HCC) [facility] Medical [facility] Family Medicine - Silvano Longo MD Upcoming Appointments Future Appointments Today Hector Rendon MD [facility] Oncology Services, [facility] In 1 week Rohit Cardoso MD [facility] Oncology Services, [facility] PICU NURSE - Recent and Past Visits Recent Visits Date Type Provider Dept 05/29/20 Office Visit Silvano Byrne MD [facility] 02/25/20 Office Visit Silvano Byrne MD [facility] [place] Showing recent visits within past 460 days with a meds authorizing provider and meeting all other requirements Future Appointments No visits were found meeting these conditions. Showing future appointments within next 90 days with a meds authorizing provider and meeting all other requirements Passed - Last BP in normal range BP Readings from Last 1 Encounters: 05/29/20 100/62 MOTOR OPERATOR * Telephone Encounter - Donita Callejas - [...] scripts) 1 Pharmacy preference for this medication: [facility]/pharmacy #[id number]?? Outcome: []Medication pended, routed to surescripts []Medication refused []Informed caller of refills at pharmacy []Additional message to medication management RN []Verbal authorization for written order to pharmacy []Additional message to provider []Verified medication with pharmacy Donita Medication Management MOTOR OPERATOR documented in this encounter Plan of Treatment Upcoming Encounters Date Type Department Care Team (Late st Contact Info) Description 05/26/2025 2:00 PM TOW MOTOR OPERATOR Office Visit [facility] - Primary Care - [address] [place] [address] Nati Garcia, [facility] [address] [place] [address] 10/25/2025 11:00 AM CDT Office Visit [facility] Oncology Services [address] [place] [address] Hector Rendon MD [address] [place] [address] Discharge Disposition: Discharged to home or Selfcare 10/25/2025 11:30 AM CDT Clinical Support [facility] Oncology Services [address] [place] [address] Hector Rendon MD [address] [place] [address] Discharge Disposition: Discharged to home or Selfcare documented as of this encounter Visit Diagnoses Not on filedocumented in this encounter Care Teams Trim Mounter Relationship Specialty Start Date End Date Silvano Byrne MD [address] [address] PCP - General Family Medicine 02/25/20 03/23/24 Nati Garcia, [facility] [address] [address] PCP - General Physician Burrer Machine 03/24/24 Juan David Ashby MD Consulting Physician General Surgery 12/27/19 [place] [address] [place] [address] Consulting Physician Medical Oncology 12/27/19 Rohit Cardoso MD [address] [place] [address] Consulting Physician Radiation Oncology 12/27/19 Sung Do MD [facility] [facility] [address] [place] [address] Consulting Physician Cardiovascular Disease - Cardiology 12/28/19 Shawn Alves MD [address] [address] Consulting Physician Colon and Rectal Surgery 05/10/22 documented as of this encounter
--- OUTSIDE RECORDS SUMMARY | 2025-05-17 12:38 | XMS_ITS | Encounter Summary ---
Author Organization [facility] Address [address] [place] [address] Phone Care Team Providers Care Senior Web Architect Name Role Phone SymoneJuan David MD Unavailable Hector Rendon MD Unavailable Rohit Cardoso MD Unavailable Sung Do MD Unavailable Silvano Byrne MD Primary Care Provider Shawn Alves MD Unavailable Nati Garcia [facility] Primary Care Pro vider Reason for Visit * Reason Comments Medication Refill Encounter Details Date Type Department Care Team (Late st Contact Info) Description 04/14/2022 Refill [facility] - [place] [facility] Staples [address] [place] [address] Silvano Byrne MD [address] [place] [address] Medication Refill Social History Tobacco Use Types [...] Date 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 Not on file No [...] Provider Dept 04/22/22 Appointment Silvano Byrne MD [facility] Showing future appointments within next 90 days and meeting all other requirements documented in this encounter Plan of Treatment Upcoming Encounters Date Type Department Care Team (Late st Contact Info) Description 05/26/2025 2:00 PM REROLLER HAND Office Visit [facility] - Primary Care - [place] [address] [place] [address] Nati Garcia, [facility] [address] [place] [address] 10/25/2025 11:00 AM CDT Office Visit [facility] Oncology Services [address] [place] [address] Hector Rendon MD [address] [place] [address] Discharge Disposition: Discharged to home or Selfcare 10/25/2025 11:30 AM CDT Clinical Support [facility] Oncology Services [address] [place] [address] Hector Rendon MD [address] [place] [address] Discharge Disposition: Discharged to home or Selfcare [...] documented as of this encounter Care Teams Senior Web Architect Relationship Specialty Start Date End Date Silvano Byrne MD [address] [facility] [address] [place] [address] PCP - General Family Medicine 02/25/20 03/23/24 Nati Garcia PAC [address] [address] PCP - General Physician Maintenance Mechanic [employer] 03/24/24 Juan David Ashby MD Consulting Physician General Surgery 12/27/19 Hector Rendon MD [address] [place] [address] Consulting Physician Medical Oncology 12/27/19 Rohit Cardoso MD [address] [place] [address] Consulting Physician Radiation Oncology 12/27/19 Sung Do MD [address] [facility] [address] [place] [address] Consulting Physician Cardiovascular Disease - Cardiology 12/28/19 Shawn Alves MD [address] [address] Consulting Physician Colon and Rectal Surgery 05/10/22 documented as of this encounter
--- OUTSIDE RECORDS SUMMARY | 2025-05-17 12:38 | XMS_ITS | Encounter Summary ---
Author Organization [facility] Address [address] [facility] [address] [place] [address] Care Team Providers Care Managing Partner Digital Content Marketing [place] Name Role Phone Jeremy Stinson MD Primary Care Provider [phone] Jeremy Stinson MD Primary Care Provider [phone] Jeremy Stinson MD Primary Care Provider [phone] Antoinette Thomas MD Primary Care Prov ider Jeremy Stinson MD Primary Care Provider [phone] Sung Do MD Unavailable [phone] Mer Szymanski MD Primary Care Provider Sung Do MD Primary Care Provider + Silvano Byrne MD Primary Care Provider [phone] Saul Marquez MD Unavailable [phone] Nati Garcia Primary Care Prov ider Encounter Details Date Type Department Care Team (Late st Contact Info) Description 08/23/2016 Orders Only [facility] Provider, Historical, MD [address] [place] [address] Social History Tobacco Use Types Packs/Day Years Used Date Smoking Tobacco: Never Alcohol Use Standard Drinks/Week Comments No 0 (1 standard drink = 0.6 oz pur e alcohol) Comments Unknown Sex and Gender Information Value Date Recorded Sex Assigned at Not on file Legal Sex Female 12:[address] PROJECT MANAGER Gender Identity Not on file Sexual [...] on filedocumented in this encounter Care Teams Managing Partner Digital Content [employer] [place] Relationship Specialty Start Date End Date Jeremy Stinson MD [address] [place] [address] PCP - General 10/04/16 10/28/16 Jeremy Stinson MD [address] [place] [address] PCP - General 08/29/16 10/03/16 Jeremy Stinson MD [address] [place] [address] PCP - General 12/11/06 08/28/16 Antoinette Thomas MD [address] [place] [address] PCP - General 10/29/16 11/05/16 Jeremy Stinson MD [address] [place] [address] PCP - General 11/06/16 04/29/19 Mer Szymanski MD [address] [place] [address] PCP - General Family Medicine 04/30/19 03/28/20 Sung Do MD [address] [place] [address] PCP - General Cardiology 03/29/20 03/29/20 Silvano Byrne MD [address] [place] [address] [address] PCP - General Family Medicine 03/30/20 10/13/24 Nati Garcia PA [address] [place] [address] [address] PCP - General Neurosurgery 10/14/24 Sung Do MD [address] [place] [address] Consulting Physician Cardiology 10/16/18 Saul Marquez MD [address] [facility] [address] [place] [address] Surgeon Orthopedic Surgery 08/28/21 documented as of this encounter
--- OUTSIDE RECORDS SUMMARY | 2025-05-17 12:38 | XMS_ITS | Encounter Summary ---
Author Organization [facility] Address [address] [place] [address] Care Team Providers Care Clamshell Engineer Name Role Phone Sung Do MD Unavailable [phone] Saul Marquez MD Unavailable Nati Garcia Primary Care Prov ider Encounter Details Date Type Department Care Team (Late st Contact Info) Description 04/05/2025 Results Follow-Up [facility] Cardiology [address] [place] [address] Rosa Tellez NP [address] [place] [address] Transthoracic Echo (TTE) Complete W [...] on file Legal Sex Female 12:19 AM REEL OPERATOR Gender Identity Not on file Sexual Orientation Not on file Occupation Industry Job Start Date Job End Date Retired Not on file Not on file Not on file documented as of this encounter Plan of Treatment Not on file documented as of this encounter Visit Diagnoses Not on filedocumented in this encounter Care Teams Clamshell Engineer Relationship Specialty Start Date End Date Nati Garcia PA [address] [address] PCP - General Neurosurgery 10/14/24 Sung Do MD Consulting Physician Cardiology 10/16/18 Saul Marquez MD Surgeon Orthopedic Surgery 08/28/21 documented as of this encounter
--- OUTSIDE RECORDS SUMMARY | 2025-05-17 12:38 | XMS_ITS | Clinical Summary ---
Author Organization [facility] Address 1 [place] [address] Care Team Providers Care Briquette Operator Name Role Phone Sung Do MD Unavailable Saul Marquez MD Unavailable [phone] Nati Garcia Primary Care Prov ider Allergies [...] Micra AV2 Leadless Pacemaker. Dx; CHB. DOI 12/09/2024-[place], [place]. Carelink remote. Cardiac resynchronization th erapy pacemaker (COAL OR ORE CONTROLLER-P) in place 03/19/2024 Aftercare following right hip [...] total fan radiation, radiotherapy in 1975 at [facility] in the management of Hodgkin's disease. Records [...] stage unknown. She received radiation therapy at [place] with what from her description sounded like [...] (09/16/2018): Added automatically from request for surgery [id number] Dizziness 07/09/2018 H/O sinus bradycardia 04/16/2018 Pleural [...] post biventricular pacemaker 10/16/2018 02/09/2025 Overview (10/28/2018): Zaysa/St Saleem BIV Pacemaker. Dx; NICM, CHF, LBBB, CHB. DOI 10/15/2018-Ramaswamy. Lamas remote monitoring. Encounters Date Type Department Care Team Description 05/13/2025 Telephone [facility] Cardiology [address] [place] [address] Rosa Mathias NP 05/12/2025 2:00 PM APPRAISER PERSONAL PROPERTY Office Visit [facility] Cardiology [address] [place] [address] Rosa Mathias NP Nonischemic cardiomyopathy (HCC) (Primary Dx); Chronic heart failure with preserved ejection fraction; Lipid screening; S/P placement of leadless cardiac pacemaker; Deep vein thrombosis (DVT) of left upper extremity, unspecified chronicity, unspecified vein (HCC); History of mitral valve repair; Moderate aortic stenosis by prior echocardiogram 04/28/2025 Telephone [facility] Cardiology [address] [place] [address] [place] [address] Neto Nayak MD 04/20/2025 Telephone [facility] Cardiology [address] [place] [address] [place] [address] Rosa Mathias NP Medication Problem 04/14/2025 9:55 AM CDT Lab [address] [address] 04/14/2025 Telephone [facility] Cardiology [address] [place] [address] [place] [address] Rosa Mathias NP 04/05/2025 11:15 AM CDT Ancillary Procedure [place] [address] [place] [address] Nonischemic cardiomyopathy (HCC); History of mitral valve repair 04/05/2025 Results Follow-Up [place] [address] [place] [phone] Rosa Mathias NP Transthoracic Echo (TTE) Complete W Doppler/CF 03/31/2025 Telephone [facility] Cardiology [address] [place] [address] [place] [address] Vivek Ruiz MD 03/30/2025 Telephone [facility] Cardiology [address] [place] [address] [place] [phone] Rosa Mathias NP Foot Swelling; Joint Swelling 03/21/2025 10:30 AM CDT Orders Only [facility] [address] [place] [address] 03/10/[address] [facility] Cardiology [address] [facility] [address] [place] [address] [place] [address] Cedric Blake MD 03/08/2025 10:30 AM CDT Orders Only [facility] [address] [place] [address] 02/28/2025 10:30 AM CDT Orders Only [facility] [address] [place] [address] 02/21/2025 11:30 AM CDT Orders Only [facility] [address] [place] [address] 02/14/2025 2:00 PM CDT Orders Only [facility] [address] [place] [address] from Last 3 Months Surgical History Surgery [...] on file Legal Sex Female 12:19 AM APPRAISER PERSONAL PROPERTY Gender Identity Not on file Sexual Orientation [...] Comments Blood Pressure 124/62 05/12/2025 2:03 PM APPRAISER PERSONAL PROPERTY Pulse 60 05/12/2025 2:03 PM APPRAISER PERSONAL PROPERTY Temperature 36.6 C (97.8 F) 01/26/2025 8:41 AM CDT Respiratory Rate 16 01/26/2025 8:41 AM CDT Oxygen Saturation 95% 05/12/2025 2:03 PM APPRAISER PERSONAL PROPERTY Inhaled Oxygen Concentration - - Weight 53.5 kg (118 lb) 05/12/2025 2:03 PM APPRAISER PERSONAL PROPERTY Height 162.6 cm (5' 4) 05/12/2025 2:03 PM APPRAISER PERSONAL PROPERTY Body Mass Index 20.25 05/12/2025 2:03 PM APPRAISER PERSONAL PROPERTY Plan of Treatment Health Maintenance Due Date [...] 07/02/2023, 02/29/2020 Medical Devices Implanted Type Area Home Help Aide Device Identifier Shelf Expiration Date Model / Serial / Lot Bard Peripheral Vascular [id number] Ultraclip Bard 17ga 10cm 2 Trigger Permanent Ultrasound - [id number] - [id number] Implanted:Qty: 1 on 10/22/2019 by Anthony Ambrosio MD at [facility] Breast Right: Breast Bard Peripheral Vascular 05/03/2022 [id number] / [id number] / [employer] 2088tc/52 Tendril Sts 6fr 52cm Is-1 Connector Active Fixation Bipolar Soft - [id number] - [id number] Implanted:Qty: 1 on 10/15/2018 by Jeffrey Stafford MD at [facility] Lead [employer] [id number] 09/03/2021 2088TC/52 / [id number] / [employer] 2088tc/46 Tendril Sts 6fr 46cm Is-1 Connector Bipolar Active Fixation - [id number] - [id number] Implanted:Qty: 1 on 10/15/2018 by Jeffrey Stafford MD at [facility] Lead [employer] [id number] 05/06/2021 2088TC/46 / [id number] / [employer] 1458q/86 Quartet 5fr 28gin98ms 4 Electrode Is-4 Connector Steerable Tip - [id number] - [id number] Implanted:Qty: 1 on 10/15/2018 by Jeffrey Stafford MD at [facility] Lead [employer] [id number] 09/03/2021 1458Q/86 / [id number] / [employer] [id number] Quadra Allure Mp Rf 86e24uv Is4-Llll Is-1 Connector Thk6mm - [id number] - [id number] Implanted:Qty: 1 on 10/15/2018 by Jeffrey Stafford MD at [facility] Pacemaker [employer] [id number] 03/06/2020 [id number] / [id number] / Daig Yue/[employer] [id number] Angio-Seal Vip Bondek-Plus 6fr .035in 70cm Hemostatic Latex Free - [id number] Implanted:Qty: 1 on 09/23/2018 by Vivek Ruiz MD at [facility] Daig [employer]ue/[employer] 06/05/2019 [id number] / / [id number] Depuy Orthopaed[employer] Inc [id number] [place] 52mm Sector Hip Shell Acetabular Gription Sterile Latex Free - [id number] Implanted:Qty: 1 on 08/27/2021 by Saul Marquez MD at [facility] Right: Hip Depuy Orth[employer]ed[employer] Inc 03/06/2031 [id number] / / [id number] Depuy Orthopaedics Inc [id number] Savoy 52mm 36mm Hip 10d +4mm Liner Acetabular Altrx Sterile Latex Free - [id number] Implanted:Qty: 1 on 08/27/2021 by Saul Marquez MD at [facility] Right: Hip [employer] Orth[employer]ed[employer] Inc 07/06/2026 [id number] / / [id number] Depuy Orthopaedics Inc [id number] Savoy 6.5mm 35mm Acetabular Cancellous Screw Bone Sterile - [id number] Implanted:Qty: 1 on 08/27/2021 by Saul Marquez MD at [facility] Right: Hip Depuy Orthopaed[employer] Inc 06/05/2031 0 / / [id number] DepFierce & Frugal Orthopaedics Inc [id number] Actis 99mm Collar Hip 2 Standard Offset Stem Femoral - [id number] Implanted:Qty: 1 on 08/27/2021 by Saul Marquez MD at [facility] Right: Hip [employer] Orth[employer] Inc 05/06/2028 [id number] / / [id number] Depuy Orthopaedics Inc [id number] Articul/Juma 36mm Cementless M Specification No Skirt [place] Neck Latex Free - [id number] Implanted:Qty: 1 on 08/27/2021 by Saul Marquez MD at [facility] Right: Hip [employer]uy Orth[employer]ed[employer] Inc 08/06/2025 [id number] / / [id number] Procedures Procedure Name Priority Date/Time Associated Diagnosis Comments POCT LIPID PANEL Routine 05/12/2025 2:07 PM APPRAISER PERSONAL PROPERTY Lipid screening EGFR Routine 04/14/2025 10:16 AM CDT COMPREHENSIVE METABOLIC PANEL Routine 04/14/2025 10:16 AM CDT TRANSTHORACIC ECHO (TTE) COMPLETE W DOPPLER/CF WO CONTRAST Routine 04/05/2025 12:24 PM CDT Nonischemic cardiomyopathy (HCC) History of mitral valve repair SCREENING MAMMOGRAM BILATERAL W LAWSON Schedule Routine, Read Routine (OP Routine) 06/13/2022 9:56 AM APPRAISER PERSONAL PROPERTY Encounter for screening mammogram for malignant neoplasm of breast HEPATITIS C RNA, QUANTITATIVE, PCR Routine 06/02/2019 11:44 AM APPRAISER PERSONAL PROPERTY from Last 3 Months or Most Recently Relevant to Health Maintenance Results * (ABNORMAL) POCT lipid panel (05/12/2025 2:07 PM APPRAISER PERSONAL PROPERTY) Cholesterol, POC 128 <200 MG/DL HDL, POC 22(A) >=40 mg/dL Triglycerides, POC 72 <=149 mg/dL LDL Cholesterol POC 92 <=129 mg/dL Chol/HDL Ratio, POC 4.1 NONE Non-HDL Cholesterol, POC 106 NONE mg/dL Cholesterol Total, POC 128 30 - 199 mg/dL Capillary blood 05/12/2025 2 :07 PM APPRAISER PERSONAL PROPERTY Rosa Mathias NP POINT OF CARE TEST [...] MD LAB BLOOD ORDERABLES Fin al Result [facility] ([place]) 1 [facility] Department [place] [address] * Comprehensive metabolic panel (04/14/2025 [...] Fin al Result [facility] ([place]) 1 [facility] [place] [address] * TRANSTHORACIC ECHO (TTE) COMPLETE W DOPPLER/CF WO CONTRAST (04/05/2025 12:24 PM CDT) EF Mod BP 53 % CONS SCIMAGE Anatomical Region Laterality Modality Ultrasound 04/05/2025 11:0 8 AM CDT Narrative 04/05/2025 3:[address] [facility] Cardiology [address], [place] [address] [address], [place] [address] P:[phone] P:[phone] Echocardiographic Report Patient Name: YUSUF PARISH A : 1960 Study Date: 04/05/2025 11:08:32 AM Sex: F Chain Sales Representative: Irina Mahoney)(CT), [facility] Location: [facility] Provider: ROSA MATHIAS Height(Cm): 163 BSA: 1.54 [...] FINDINGS: Interpretation Site: Exam was interpreted at [facility]. Left Ventricle: Normal left ventricular size. Mild [...] Electronically Signed By: Jose Cruz Betancourt MD, [facility] 04/05/2025 3:07:39 PM CDT Procedure Note Jose Cruz Betancourt MD - 04/05/2025 [facility] Cardiology [address] [facility] [address], [place] [address] [address] [facility] [address], [place] [address] P:[phone] P:[phone] Echocardiographic Report Patient Name: YUSUF PARISH A : 1960 Study Date: 04/05/2025 11:08:32 AM Sex: F Chain Sales Representative: Irina Mahoney)(CT), [facility] Location: [facility] Provider: ROSA MATHIAS Height(Cm): 163 BSA: 1.54 [...] FINDINGS: Interpretation Site: Exam was interpreted at [facility]. Left Ventricle: Normal left ventricular size. Mild [...] Electronically Signed By: Jose Cruz Betancourt MD, [facility] 04/05/2025 3:07:39 PM CDT Rosa Mathias NP CV ECHO PROCEDURES Final Result * Screening Mammogram Bilateral W Lawson (06/13/2022 9:56 AM APPRAISER PERSONAL PROPERTY) Anatomical Region Laterality Modality Breast Bilateral Mammography 06/13/2022 12:5 9 PM APPRAISER PERSONAL PROPERTY Impressions 06/13/2022 12:59 PM APPRAISER PERSONAL PROPERTY There is no mammographic evidence of malignancy. A 1 year screening mammogram is recommended. BI-RADS: 2 - Benign. The patient has been or will be contacted. The patient will be entered into a reminder system with a target due date of 1 year for her next mammogram. Electronically signed by: Prakash Rendon M.D. Narrative 06/13/2022 12:59 PM APPRAISER PERSONAL PROPERTY EXAMINATION: SCREENING MAMMOGRAM BILATERAL W LAWSON ORDERING [...] (HCV) RNA PCR, quantitative (06/02/2019 11:44 AM APPRAISER PERSONAL PROPERTY) HCV RNA qn Undetected Undetected IUnits/mL [facility] ([place]) Comment: Result in log IU/mL is Undetected. ADDITIONAL INFORMATION The quantification range of this assay is 15 to 100,000,000 IU/mL (1.18 log to 8.00 log IU/mL). Testing was performed using the lester HCV test ([employer] with the lester 6800 System. Test Performed by: [facility] [address] [place] [address] Block Splitter Operator: Raheem Cornejo M.D. Ph.D.; CLIA# [id number] Blood specimen (specimen) 06/02/2019 11:44 AM APPRAISER PERSONAL PROPERTY 06/02/2019 12:08 PM APPRAISER PERSONAL PROPERTY Mer Szymanski MD LAB MICROBIOLOGY - GENE RAL ORDERABLES Final Result [facility] ([place]) 1 [facility] Department [place] [address] from Last 3 Months or Most Recently Relevant to Health Maintenance Insurance MEDICARE [facility] Address: [address] [address] [place] [address] IDPA [employer]UBBS [facility] MEDICARE [facility] Member Subscriber Plan / Payer ( fective 2023-Present) Name:Yusuf Parish Relation to Subscriber:Self Name:Yusuf Parish Payer ID:[id number] (NA) Type:MEDICAID RISK OTHER Address: [address] [facility] Advance Directives For more information, please contact: [phone] Documents on File Type Date Recorded Patient Bods Developer Expl anation ADVANCE DIRECTIVE 08/27/2021 9:10 AM Power of Bindery Machine Operator-Medical Power of Bindery Machine Operator 05/22/2021 2:02 PM ADVANCE DIRECTIVE 10/21/2018 3:46 [...] 9:41 AM 12/23/2017 2:52 AM Care Teams Briquette Operator Relationship Specialty Start Date End Date Nati Garcia PA [address] [address] PCP - General Neurosurgery 10/14/24 Sung Do MD Consulting Physician Cardiology 10/16/18 Saul Marquez MD Surgeon Orthopedic Surgery 08/28/21
--- OUTSIDE RECORDS SUMMARY | 2025-05-17 12:38 | XMS_ITS ---
Author Organization [facility] Address [address] [place] [address] Care Team Providers Care Manager Beverage Name Role Phone Sung Do MD Unavailable Saul Marquez MD Unavailable Nati Garcia Primary Care Prov ider Active Problems Problem Noted Date Diagnosed Date Cardiac pacemaker in situ 02/09/2025 Overview (02/09/2025): Medtronic Micra AV2 Leadless Pacemaker. Dx; CHB. DOI 12/09/2024-[place], [place]. Carelink remote. Cardiac resynchronization th erapy pacemaker (ELECTRICAL DEVELOPMENT ENGINEER-P) in place 03/19/2024 Aftercare following right hip [...] total fan radiation, radiotherapy in [address] [facility] in the management of Hodgkin's disease. Records were unavailable. Right partial breast radiotherapy, 50.4 Gy in 28 fractions, from 01/10/2020 thru 02/16/2020. 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 She received radiation therapy at [place] with what from her description sounded like [...] (09/16/2018): Added automatically from request for surgery [id number] Dizziness 07/09/2018 H/O sinus bradycardia 04/16/2018 Pleural [...]
--- OUTSIDE RECORDS SUMMARY | 2025-05-17 12:38 | XMS_ITS | Clinical Summary ---
Author Organization [facility] Address Critical access hospital[address] [place] [address] Care Team Providers Care Header Set Up Operator Name Role Phone MiladcathieRosalee ennis MD Unavailable [phone] Jan Marcelo MD Unavailable Nati Garcia Primary Care Provider [phone] Russell Phelan MD Unavailable [phone] Allergies Active Allergy Reactions Criticality Noted Date [...] pacemaker 12/07/2024 Cardiac resynchronization th erapy pacemaker (HIM TECH-P) in place 03/19/2024 Anemia 09/10/2021 Essential hypertension 09/10/2021 Osteoarthritis of right hip 09/10/2021 Status post partial mastectomy of right breast 0 03/30/2020 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 She received radiation therapy at [place] with what from her description sounded like [...] (12/06/2024): Added automatically from request for surgery [id number] Acquired hypothyroidism 07/30/2008 Overview (12/06/2024): Hypothyroidism (acquired) [...] drink = 0.6 oz pur e alcohol) [facility] Utilities Answer Date Recorded In the past 12 months has e play140, gas, oil, or water [employer] threatened to shut off services in your [...] were you homeless or living in a assisted (including now)? No 12/07/2024 Comments Unknown Sex [...] Recommended Domains Addressed Status Status Reason/Outcome Date/Time [facility] Depression, Stress Recommended 01/18/2025 2:51 AM CDT [facility] ([facility]) [facility] Resource [place] in [facility] Services Depression, Stress Recommended 01/18/2025 2:51 AM CDT from Last 12 Months Medical Devices Implanted Type Area Spindle Tester Device Identifier Shelf Expiration Date Model / Serial / Lot Medtronic Micra Av2-12/09/2024 Implanted:Qty: 1 on 12/09/2024 by Jan Marcelo MD Generator MEDTRONIC CARDIAC RHYTHM AND HEART FAILURE - DIV M 03/20/2026 [id number] / [id number] / Description:DX: CHB/ Pacemak er Dependant Explanted Type Area Spindle Tester Device Identifier Shelf Expiration Date Model / Serial / Lot Phoenix Ra-10/15/2018 Implanted:05/2019 (Quantity not on file) Explanted:Qty : 1 on 12/09/2024 by Jan Marcelo MD Lead Implant [employer] 2088TC-46 / [id number] / Description:Tendril Phoenix Rv-10/15/2018 Implanted:05/2019 (Quantity not on file) Explanted:Qty : 1 on 12/09/2024 by Jan Marcelo MD Lead Implant [employer] 2088TC-52 / [id number] / Phoenix Lv-10/15/2018 Implanted:05/2019 (Quantity not on file) Explanted:Qty : 1 on 12/09/2024 by Jan Marcelo MD Lead Implant [employer] 1458Q-86 / [id number] / Phoenix Quadra Allure Bi-V- 5 Implanted: by Rosalee Osullivan MD (Quantity not on file) Explanted:Qty : 1 on 12/09/2024 by Jan Marcelo MD Pacemaker [employer] [id number] / [id number] / Description:DX: SSS Procedures Procedure Name Priority Date/Time Associated Diagnosis Comments HC OCCULT BLOOD FECAL SCRN Routine 12/21/2024 7:35 AM CDT from Last 3 Months or Most Recently Relevant to Health Maintenance Results * OCCULT BLOOD, FECES, SCREENING (12/21/2024 7:35 AM CDT) OCCULT BLOOD SCREEN NEGATIVE NEGATIVE 12/21/2024 8:30 AM CDT [facility] STOOL SPECIMEN / Unknown 12/21/2024 7:35 AM CDT us Nickie Marie NP BODY FLUIDS AND STOOLS ORDERABL ES Final Result [facility] [address] [place] [address], from Last 3 Months or Most Recently Relevant to Health Maintenance Insurance [employer]BS MEDICARE Advance Directives Documents on File Type Date Recorded Patient Marble Carver Expl anation Advance Directives and Livin g Will 12/23/2024 12:45 PM Advance Directives and Livin g Will 12/23/2024 12:45 PM * DNR (Latest Code Status on File) Date Activated Date Inactivated Comments 12/17/2024 4:09 PM 01/24/2025 12:26 PM * Full Code Date Activated Date Inactivated Comments 12/07/2024 1:03 PM 12/17/2024 2:34 PM Care Teams Header Set Up Operator Relationship Specialty Start Date End Date Nati Garcia PA [address] [place] [address] PCP - General PHYSICIAN DRUM CLEANER 12/07/24 Rosalee Osullivan MD [address] [place] [address] CARDIOVASCULAR DISEASE 12/07/24 Jan Marcelo MD [address] [place] [id number] Consulting Physician CLINICAL CARDIAC ELECTROPHYSIOLOGY 12/07/24 Russell Phelan MD [address] [facility] [address] [place], [place] [address] Consulting Physician RADIOLOGY 01/20/25 01/20/26
--- OUTSIDE RECORDS SUMMARY | 2025-05-17 12:39 | XMS_ITS | Encounter Summary ---
Author Organization [employer] Care Team Providers Care Needle Control Cheniller Name Role Phone Juan David Ashby MD Unavailable Hector Rendon MD Unavailable [phone] Rohit Cardoso MD Unavailable [phone] Sung Do MD Unavailable Shawn Alves MD Unavailable Nati Garcia PAC Primary Care Pro vider Encounter Details Date Type Department Care Team (Latest Contact Info) Description 05/17/2025 Travel Social History Tobacco Use Types Packs/Day Years Used Date Smoking Tobacco: Never Smokeless Tobacco: Never Alcohol Use Standard Drinks/Week Comments Not Currently 0 (1 standard drink = 0.6 oz pur e alcohol) Occasionally on holidays. 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 Not on file No t on file documented as of this encounter Plan of Treatment Upcoming Encounters Date Type Department Care Team (Late st Contact Info) Description 05/26/2025 2:00 PM FILAMENT SHAPER Office Visit [facility] Primary [facility] [address] [place] [address] Nati Garcia PAC [address] [place] [address] 10/25/2025 11:00 AM CDT Office Visit [facility] [address] [place] [phone] Hector Rendon MD [address] [place] [address] Discharge Disposition: Discharged to home or Selfcare 10/25/2025 11:30 AM CDT Clinical Support [facility] [address] [place] [phone] Hector Rendon MD [address] [place] [address] Discharge Disposition: Discharged to home or Selfcare [...] documented as of this encounter Care Teams Needle Control Cheniller Relationship Specialty Start Date End Date Nati Garcia PAC [address] [address] PCP - General Physician Door Repairer Bus 03/24/24 Juan David Ashby MD Consulting Physician General Surgery 12/27/19 Hector Rendon MD [address] [place], [place] [id number] Consulting Physician Medical Oncology 12/27/19 Rohit Cardoso MD [address] [place], [place] [phone] Consulting Physician Radiation Oncology 12/27/19 Sung Do MD [address] [address] Consulting Physician Cardiovascular Disease - Cardiology 12/28/19 Shawn Alves MD [address] [address] Consulting Physician Colon and Rectal Surgery 05/10/22 documented as of this encounter
--- OUTSIDE RECORDS SUMMARY | 2025-05-17 12:39 | XMS_ITS | Encounter Summary ---
Author Organization [facility] Address [address] [place] [address] Phone Care Team Providers Care Sow Farm Manager Name Role Phone Juan David Ashby MD Unavailable Hector Rendon MD Unavailable [phone] Rohit Cardoso MD Unavailable Sung Do MD Unavailable [phone] Shawn Alves MD Unavailable Nati Garcia Primary Care Pro vider Encounter Details Date Type Department Care Team (Late st Contact Info) Description 05/16/2025 Telephone [facility] - Primary Care - [place] [address] [place] [address] Nati Garcia, [facility] [address] [place] [address] Social History Tobacco Use Types Packs/Day Years Used Date Smoking Tobacco: Never Smokeless Tobacco: Never Alcohol Use Standard Drinks/Week Comments Not Currently 0 (1 standard drink = 0.6 oz pur e alcohol) Occasionally on holidays. [facility] Utilities Answer Date Recorded In the past [address] 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 Oncology Services [address] [place] [phone] Hector Rendon MD [address] [place] [address] Discharge Disposition: Discharged to home or Selfcare 10/25/2025 11:30 AM CDT Clinical Support [facility] Oncology Services [address] [place] [address] Hector Rendon MD [address] [place] [address] Discharge Disposition: Discharged to home or Selfcare [...] documented as of this encounter Care Teams Sow Farm Manager Relationship Specialty Start Date End Date aNti Garcia PAC [address] [address] PCP - General Physician Casting House Laborer 03/24/24 Juan David Ashby MD Consulting Physician General Surgery 12/27/19 Hector Rendon MD [address] [place] [address] Consulting Physician Medical Oncology 12/27/19 Rohit Cardoso MD [address] [place] [address] Consulting Physician Radiation Oncology 12/27/19 Sung Do MD [address] [facility] [address] [place] [address] Consulting Physician Cardiovascular Disease - Cardiology 12/28/19 Shawn Alves MD [address] [address] Consulting Physician Colon and Rectal Surgery 05/10/22 documented as of this encounter
--- OUTSIDE RECORDS SUMMARY | 2025-05-17 12:39 | XMS_ITS | Encounter Summary ---
Author Organization [facility] Address [address] [place] [address] Phone Care Team Providers Care Piece Hand Name Role Phone Symone Juan David Fisher MD Unavailable Hector Rendon MD Unavailable Rohit Cardoso MD Unavailable [phone] Sung Do MD Unavailable Silvano Byrne MD Primary Care Provider Shawn Alves MD Unavailable Nati Garcia [facility] Primary Care Pro vider Reason for Visit * Reason Comments Medication Refill Encounter Details Date Type Department Care Team (Late st Contact Info) Description 05/11/2021 [facility]ill [facility] [address] [place] [address] Hector Rendon MD [address] [place] [address] Medication Refill Social History Tobacco [...] 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 file No [...] st Contact Info) Description 05/26/2025 2:00 PM PEDIATRIC LICENSED PRACTICAL NURSE Office Visit [facility] - Primary Care - [place] [address] [place] [phone] Nati Garcia PAC [address] [place] [address] 10/25/2025 11:00 AM CDT Office Visit [facility] - Cancer Center Oncology Services [address] [place] [address] Hector Rendon MD [address] [place] [address] Discharge Disposition: Discharged to home or Selfcare 10/25/2025 11:30 AM CDT Clinical Support [facility] Oncology Services [address] [place] [phone] Hector Rendon MD [address] [place], [place] [address] Discharge Disposition: Discharged to home or Selfcare [...] documented as of this encounter Care Teams Piece Hand Relationship Specialty Start Date End Date Silvano Byrne MD [address] [address] PCP - General Family Medicine 02/25/20 03/23/24 Nati Garcia PAC [address] [address] PCP - General Physician Department Secretary 03/24/24 Juan David Ashby MD Consulting Physician General Surgery 12/27/19 Hector Rendon MD [address] [place] [address] Consulting Physician Medical Oncology 12/27/19 Rohit Cardoso MD [address] [place] [address] Consulting Physician Radiation Oncology 12/27/19 Sung Do MD [address] [address] Consulting Physician Cardiovascular Disease - Cardiology 12/28/19 Shawn Alves MD [address] [address] Consulting Physician Colon and Rectal Surgery 05/10/22 documented as of this encounter
--- OUTSIDE RECORDS SUMMARY | 2025-05-17 12:39 | XMS_ITS | Encounter Summary ---
Author Organization [facility] Address [address] [place] [address] Phone Care Team Providers Care Field Artillery Basic Name Role Phone Juan David Ashby MD Unavailable Hector Rendon MD Unavailable [phone] Rohit Cardoso MD Unavailable Sung Do MD Unavailable [phone] Shawn Alves MD Unavailable Nati Garcia [facility] Primary Care Pro vider Reason for Visit * Reason Onset Date Comments Follow-up 05/04/2025 Encounter Details Date Type Department Care Team (Late st Contact Info) Description 05/04/2025 Telephone [facility] [address] [place] [phone] Nati Garcia, [facility] [address] [place] [address] Follow-up Social History Tobacco Use Types Packs/Day Years Used Date Smoking Tobacco: Never Smokeless Tobacco: Never Alcohol Use Standard Drinks/Week Comments Not Currently 0 (1 standard drink = 0.6 oz pur e alcohol) Occasionally on holidays. 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 Phone number online [phone] Patient states fax was sent 3-4 times to the office. Recommendation: Please advise documented in this encounter Plan of Treatment Upcoming Encounters Date Type Department Care Team (Late st Contact Info) Description 05/26/2025 2:00 PM PACK MASTER Office Visit [facility] - Primary Care - [place] [place] [address] Nati Garcia PAC [address] [place] [address] 10/25/2025 11:00 AM CDT Office Visit [facility] Oncology Services [address] [place] [phone] Hector Rendon MD [address] [place] [address] Discharge Disposition: Discharged to home or Selfcare 10/25/2025 11:30 AM CDT Clinical Support [facility] Oncology Services [address] [place] [address] Hector Rendon MD [address] [place] [address] Discharge Disposition: Discharged to home or Selfcare [...] documented as of this encounter Care Teams Field Artillery Basic Relationship Specialty Start Date End Date Nati Garcia PAC [address] [address] PCP - General Physician Media Strategist 03/24/24 Juan David Ashby MD Consulting Physician General Surgery 12/27/19 Hector Rendon MD [address] [place] [address] Consulting Physician Medical Oncology 12/27/19 Rohit Cardoso MD [address] [place] [address] Consulting Physician Radiation Oncology 12/27/19 Sung Do MD [address] [facility] [address] [place] [address] Consulting Physician Cardiovascular Disease - Cardiology 12/28/19 Shawn Alves MD [address] [address] Consulting Physician Colon and Rectal Surgery 05/10/22 documented as of this encounter
--- OUTSIDE RECORDS SUMMARY | 2025-05-17 12:39 | XMS_ITS ---
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 Dx; CHB. DOI 12/09/2024-[place], [place]. [facility] remote. Esophageal stenosis 01/05/2024 History [...] total fan radiation, radiotherapy in 1975 at [facility] in the management of Hodgkin's disease. Records were unavailable. Right partial breast radiotherapy, 50.4 Gy in 28 fractions, from 01/10/2020 thru 02/16/2020. Personal history of Hodgkin lymphoma 12/08/2019 Overview (02/16/2020): Diagnosed in 1976 at the age of 16 years with Hodgkin's disease with a high right neck presentation, subtype in stage unknown. She received radiation therapy at [place] with what from her description sounded like [...] from 12/28/2019:Stage IA(pT1b, pN0(sn), cM0, G2, ER+, MO+, HER2-, Oncotype DX score: 17) - Signed by Rohit Cardoso MD on 12/28/2019 Overview (02/16/2020): Pathological stage IA ER/MO positive, HER2 negative an Oncotype DX score [...]
--- OUTSIDE RECORDS SUMMARY | 2025-05-17 12:39 | XMS_ITS | Clinical Summary ---
Author Organization [facility] Address [address] [facility], [address] [address] Phone Care Team Providers Care Log Rider Name Role Phone Juan David Ashby MD [...] AV2 Leadless Pacemaker. Dx; CHB. DOI 12/09/2024-[place]. Carelink remote. Esophageal stenosis 01/05/2024 History [...] total fan radiation, radiotherapy in 1975 at [facility] in the management of Hodgkin's disease. Records were unavailable. Right partial breast radiotherapy, 50.4 Gy in 28 fractions, from 01/10/2020 thru 02/16/2020. Personal history of Hodgkin lymphoma 12/08/2019 Overview (02/16/2020): Diagnosed in 1976 at the age of 16 years with Hodgkin's disease with a high right neck presentation, subtype in stage unknown. She received radiation therapy at [place] with what from her description sounded [...] from 12/28/2019:Stage IA(pT1b, pN0(sn), cM0, G2, ER+, MN+, HER2-, Oncotype DX score: 17) - Signed by Rohit Cardoso MD on 12/28/2019 Overview (02/16/2020): Pathological stage IA ER/MN positive, HER2 negative an Oncotype DX score [...] Department Care Team Description 05/17/2025 10:[address] MAGISTRATE [facility] [address] [place] [address] Nati Garcia, DEEDEE Shortness of breath (Primary Dx); Chronic heart failure with preserved ejection fraction Discharge Disposition: Discharged to home or Selfcare 05/17/2025 Travel 05/16/2025 Telephone [facility] [place] [address] [place] [address] Nati Garcia, DEEDEE 05/04/2025 Telephone [facility] [address] [place] [phone] Nati Garcia, DEEDEE Follow-up 05/04/2025 Refill [facility] [address] [place] [address] Nati Garcia, DEEDEE Medication Refill 04/26/2025 11:30 AM CDT Clinical Support [facility] Oncology Services [address] [place] [phone] Hector Rendon MD Carcinoma of upper-outer quadrant of right breast in female, estrogen receptor positive (Primary Dx); Age-related osteoporosis without current pathological fracture; Osteoarthritis of right hip, unspecified osteoarthritis type; Use of letrozole (Femara) Discharge Disposition: Discharged to home or Selfcare 04/26/2025 11:00 AM CDT Office Visit [facility] [address] [place] [phone] Hector Rendon MD Poor appetite (Primary Dx); Use of letrozole (Femara); Status post partial mastectomy of right breast; Abnormal finding of blood chemistry, unspecified Discharge Disposition: Discharged to home or Selfcare 04/26/2025 Travel 04/19/2025 Telephone [facility] [place] [address] [place] [phone] Nati Garcia, DEEDEE Medication Refill 04/11/2025 [facility] [address] [place] [phone] Nati Garcia, PAC Advice Only; Letter for School/Work 04/11/2025 [facility]phone [facility] [address] [place] [phone] Hector Rendon MD 03/30/2025 11:30 AM CDT Office Visit [facility] - [place] [address] [place] [phone] Nati Garcia, DEEDEE Essential hypertension (Primary Dx) Discharge Disposition: Discharged to home or Selfcare 03/30/2025 Travel 03/17/2025 9:00 AM CDT Home Care Visit [address] [address] Alisa Miranda RN SN - OASIS DISCHARGE 03/11/2025 4:00 PM CDT Home Care Visit [address] [address] Alisa Miranda RN DISEASE MGT PHONE 03/09/2025 3:30 PM CDT Home Care Visit [address] [address] Alisa Miranda RN DISEASE MGT PHONE 03/04/2025 10:00 AM CDT Home Care Visit [address] [address] Alisa Miranda, ROSCOE SN - WOUND VISIT 03/02/2025 8:00 AM CDT Home Care Visit [address] [address] Alisa Miranda RN SN - WOUND VISIT 03/01/2025 12:40 PM CDT Lab [facility] [place] [phone] Chronic heart failure with preserved ejection fraction (HCC) Discharge Disposition: Discharged to home or Selfcare 03/01/2025 11:00 AM CDT Office Visit [facility] [place] [phone] Dione Chew APRN, NIDIA Weight loss (Primary Dx) Discharge Disposition: Discharged to home or Selfcare 03/01/2025 Results Follow-Up [facility] [place] [phone] Dione Chew APRN, SYSTEMS ANALYSIS MANAGER CBC WITH AUTO DIFFERENTIAL 03/01/2025 Travel 02/25/2025 9:00 AM CDT Home Care Visit [address] [address] Alisa Miranda, ROSCOE SN - WOUND VISIT 02/23/2025 9:00 AM CDT Home Care Visit [address] [address] Alisa Miranda, ROSCOE SN - WOUND VISIT 02/21/2025 Refill [facility] [place] [address] [place] [phone] Nati Garcia PAC Medication Refill 02/18/2025 3:30 PM CDT Home Care Visit [address] [address] Kamala Terry LPN SN - WOUND VISIT 02/18/2025 Refill [facility] [place] [address] [place] [address] Nati Garcia, PAC Medication Refill 02/18/2025 Home Care Visit [address] [address] Evelyn Sabillon OT OT - DISCHARGE SUMMARY 02/16/2025 9:00 AM CDT Home Care Visit [address] [address] Alisa Miranda RN SN - WOUND VISIT 02/15/2025 3:30 PM CDT Home Care Visit [address] [address] Anastacia Bailon, PT PT - DISCIPLINE DISCHARGE 02/15/2025 12:00 PM CDT Home Care Visit [address] [address] Poppy Estrada OTA OT - DISCIPLINE DISCHARGE 02/15/2025 10:00 AM CDT Home Care Visit [address] [address] Miri Allred, HYDROELECTRIC PRODUCTION TECHNICIAN HYDROELECTRIC PRODUCTION TECHNICIAN - HOME VISIT 02/15/2025 [facility]phone [facility] [place] [phone] [place] [address] Nati Garcia, PAC 02/15/2025 Home Care Visit [address] [address] Miri Allred, HYDROELECTRIC PRODUCTION TECHNICIAN TELEPHONE ENCOUNTER 02/15/2025 Home Care Visit [address] [address] Poppy Estrada OTA CASE COMMUNICATION from Last [...] oz pur e alcohol) Occasionally on holidays. [facility] Utilities Answer Date Recorded In the past 12 months has NXE electric, gas, oil, or water [employer] threatened to shut off services in your home? No 03/29/2024 Social Connection and Isolation Panel Answer Date Recorded In a typical week, how many times do you talk on the phone with family, friends, or neighbors? 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 on file No t on file Last Filed Vital Signs Vital Sign Reading Time Taken Comments Blood Pressure 170/76 05/17/2025 10:[address] MAGISTRATE Pulse 60 05/17/2025 10:[address] MAGISTRATE Temperature 36.1 C (97 F) 05/17/2025 10:[address] MAGISTRATE Respiratory Rate 12 05/17/2025 10:[address] MAGISTRATE Oxygen Saturation 98% 05/17/2025 10:[address] MAGISTRATE Inhaled Oxygen Concentration - - Weight 50.5 kg (111 lb 4.8 oz) 04/26/2025 10:30 AM CDT Height 162.6 cm (5' 4) 04/26/2025 10:30 AM CDT Body Mass Index 19.1 04/26/2025 10:30 AM CDT Plan of Treatment Upcoming Encounters Date Type Department Care Team (Late st Contact Info) Description 05/26/2025 2:[address] MAGISTRATE Office Visit [facility] - [place] [address] [place] [address] Nati Garcia, DEEDEE [address] [place] [address] 10/25/2025 11:00 AM CDT Office Visit [facility] Oncology Services [address] [place] [phone] Hector Rendon MD [address] [place] [address] Discharge Disposition: Discharged to home or Selfcare 10/25/2025 11:30 AM CDT Clinical Support [facility] Oncology Services [address] [place] [phone] Hector Rendon MD [address] [place] [address] Discharge Disposition: Discharged to home or Selfcare [...] Name Priority Date/Time Associated Diagnosis Comments CARDIOLOGY CONSULT 05/12/2025 12 :[address] MAGISTRATE CMP (COMPREHENSIVE METABOLIC PANEL) Routine 04/14/2025 12:00 AM CDT Osteopenia of multiple sites CBC WITH AUTO DIFFERENTIAL Routine 03/01/2025 11:19 AM CDT Chronic heart failure with preserved ejection fraction (HCC) COMPLETE BLOOD COUNT (CBC) WITH DIFF Routine 03/01/2025 11:19 AM CDT Chronic heart failure with preserved ejection fraction (HCC) KEILY SCREENING BILATERAL DIGITAL W CAD W BETHANY Routine 07/09/2024 11:[address] MAGISTRATE Carcinoma of upper-outer quadrant of right breast in female, estrogen receptor positive (HCC) Encounter for screening mammogram for malignant neoplasm of breast HUMAN PAPILLOMA VIRUS (HPV) Routine 12/23/2023 3:33 PM CDT Encounter for well woman exam with routine gynecological exam PATHOLOGY CYTOLOGY HEALTH CARE ADMINISTRATOR Routine 12/23/2023 3:33 PM CDT Encounter for well woman exam with routine gynecological exam GI IMAGING - COLONOSCOPY Routine 06/27/2022 10:[address] MAGISTRATE from Last 3 Months or Most Recently Relevant to Health Maintenance Results * CARDIOLOGY CONSULT (05/12/2025 12:[address] MAGISTRATE) 05/12/2025 Nati Garcia PAC GENERIC SCAN ORDE RS CONSULT Final Result SCAN * CMP (COMPREHENSIVE METABOLIC PANEL) (04/14/2025 12:00 AM CDT) Blood Hector Rendon MD CHEMISTRY ORDERABLES Fin al Result SCAN * (ABNORMAL) CBC WITH AUTO DIFFERENTIAL (03/01/2025 11:19 AM CDT) WBC 8.42 4.00 - 12.00 10(3)/mcL 03/01/2025 12:26 PM CDT [facility] RBC 5.92(H) 3.80 - 5.30 10(6)/mcL 03/01/2025 12:26 PM CDT [facility] HEMOGLOBIN (HGB) 15.1 12.0 - 15.8 g/dL 03/01/2025 12:26 PM CDT [facility] HEMATOCRIT (HCT) 49.6(H) 36.0 - 47.0 % 03/01/2025 12:26 PM CDT [facility] MCV 83.8 82.0 - 96.0 fL 03/01/2025 12:26 PM CDT [facility] MCH 25.5(L) 26.0 - 34.0 pg 03/01/2025 12:26 PM CDT [facility] MCHC 30.4(L) 31.0 - 36.0 g/dL 03/01/2025 12:26 PM CDT [facility] PLATELET COUNT 233 140 - 440 10(3)/mcL 03/01/2025 12:26 PM CDT [facility] RDW 16.0(H) 11.8 - 15.5 % 03/01/2025 12:26 PM CDT [facility] MPV 12.8(H) 9.7 - 12.4 fL 03/01/2025 12:26 PM CDT [facility] NEUTROPHILS 75.8(H) 47.0 - 73.0 % 03/01/2025 12:26 PM CDT [facility] LYMPHOCYTES 12.5(L) 18.0 - 42.0 % 03/01/2025 12:26 PM CDT [facility] MONOCYTES 9.1 4.0 - 12.0 % 03/01/2025 12:26 PM CDT [facility] EOSINOPHILS 1.3 0.0 - 5.0 % 03/01/2025 12:26 PM CDT [facility] BASOPHILS 1.1(H) 0.0 - 1.0 % 03/01/2025 12:26 PM CDT [facility] IMMATURE GRANULOCYTE 0.2 0.0 - 0.4 % 03/01/2025 12:26 PM CDT [facility] ABSOLUTE NEUTROPHILS 6.38 1.60 - 7.70 10(3)/mcL 03/01/2025 12:26 PM CDT [facility] ABSOLUTE LYMPHOCYTES 1.05(L) 1.30 - 3.20 10(3)/mcL 03/01/2025 12:26 PM CDT [facility] ABSOLUTE MONOCYTES 0.77 0.20 - 1.00 10(3)/mcL 03/01/2025 12:26 PM CDT [facility] ABSOLUTE EOSINOPHIL 0.11 0.00 - 0.40 10(3)/mcL 03/01/2025 12:26 PM CDT [facility] ABSOLUTE BASOPHILS 0.09 0.00 - 0.10 10(3)/mcL 03/01/2025 12:26 PM CDT [facility] ABSOLUTE IMMATURE GRANULOCYTE 0.02 0.00 - 0.03 10 (3) mcL. 03/01/2025 12:26 PM CDT [facility] NRBC PER 100 WBC 0 03/01/20 12:26 PM CDT [facility] Blood Venipuncture / Unknown 03/01/2025 11:19 AM CDT 03/01/2025 11:19 AM CDT us Dione Chew RESP THERAPIST, SYSTEMS ANALYSIS MANAGER HEMATOLOGY ORDERABLES Bonnie l Result [facility] [address] [place] [address] * KEILY SCREENING BILATERAL DIGITAL W CAD W BETHANY (07/09/2024 11:[address] MAGISTRATE) Anatomical Region Laterality Modality breast Bilateral Mammography 07/09/2024 10:[address] MAGISTRATE Narrative 07/10/2024 7:[address] MAGISTRATE - KEILY SCREENING BILATERAL DIGITAL W CAD [...] Comparison is made to exams dated: 07/09/2023 [facility], 06/13/2022, and 06/05/2021 [facility]. BREAST TISSUE:The breasts are heterogeneously dense, [...] exam. Electronically signed by: Damaris Villalobos M.D. ab/alexis:07/09/2024 17:02:14 Gluing Machine Operator Automatic(s): RT Alexus(R)(M), [facility] letter sent: Normal Exam Reading location: [facility] Mammogram BI-RADS: Category 2: Benign Procedure Note [...] Comparison is made to exams dated: 07/09/2023 [facility], 06/13/2022, and 06/05/2021 [facility]. BREAST TISSUE:The breasts are heterogeneously dense, [...] exam. Electronically signed by: Damaris bang/alexis:07/09/2024 17:02:14 Gluing Machine Operator Automatic(s): RT Alexus(R)(M), [facility] letter sent: Normal Exam Reading location: [facility] Mammogram BI-RADS: Category 2: Benign us Maile Sima Decker PAC IMG MAMMO ORDERABLES Bonnie l Result * PATHOLOGY CYTOLOGY HEALTH CARE ADMINISTRATOR (12/23/2023 3:33 PM CDT) SPECIMEN ADEQUACY A scant cellular component is noted. Endocervical/transf ormation zone component is present. 01/05/2024 2:13 PM CDT [facility] DESCRIPTIVE DIAGNOSIS NEGATIVE FOR INTRAEPITHELIAL LESIONS OR MALIGNANCY. 01/05/2024 2:13 PM CDT [facility] at 1413 CDT Automated Examination Analysis of this sample has been assisted by an automated imaging and review system ([email or web address] Imaging System, [employer], [place], [place]). This case is further evaluated and finalized by a financial agent and/or pathologist. 01/05/2024 2:13 PM CDT [facility] Disclaimer The PAP smear is a screening [...] unless clinically indicated. 01/05/2024 2:13 PM CDT [facility] Case Report Gynecologic Cytology Report Case: [id number] Authorizing Provider: Lanie Sol APRN, CNP Collected: 12/23/2023 03:33 PM Ordering Location: [facility] - Family Received: 12/23/2023 03:33 PM Medicine - [place] First Screen: Anneliese Miller Specimen: TP Screen, Cervix/Endocervix 01/05/2024 2:13 PM CDT [facility] Other CERVIX UTERI STRUCTURE / Unknown Non-Phlebotomy Collection / Unknown 12/23/2023 3:33 PM CDT 12/23/2023 3:33 PM CDT us Lanie Sol APRN, CNP PATHOLOGY/CYTOLOGY ORDER JOHN Final Result [facility] [address] [place] [address], * HUMAN PAPILLOMA VIRUS (HPV) (12/23/2023 3:33 PM CDT) HPV TYPE 16 NEGATIVE NEGATIVE 12/24/2023 2:11 PM CDT [facility] Comment: A negative high-risk HPV result does [...] 18 NEGATIVE NEGATIVE 12/24/2023 2:11 PM CDT [facility] Comment: A negative high-risk HPV result does [...] PCR NEGATIVE NEGATIVE 12/24/2023 2:11 PM CDT [facility] Comment: The following Other High Risk types [...] OR DIAGNOSTIC SCREENING 12/24/2023 2:11 PM CDT [facility] Other Non-Phlebotomy Collection / Unknown 12/23/2023 3:33 PM CDT 12/23/2023 3:33 PM CDT Narrative [facility] - 12/24/2023 2:11 PM CDT Performed by Real-Time Polymerase Chain Reaction (PCR) on the [employer] Arden 4800. This assay has been validated for use with post-aliquot samples from the [employer] T5000 processor. Lanie Sol APRN, CNP LAB SEND OUTS Final Re sult [facility] [address] [place] [address], [facility] [address] [place] [address] * GI IMAGING - COLONOSCOPY (06/27/2022 10:[address] MAGISTRATE) Shawn Alves MD IMG DIAGNOSTIC ORDERABLES Final Result from Last 3 Months or Most Recently Relevant to Health Maintenance Insurance MEDICARE C GRUBBS Advance Directives Documents on File Type Date Recorded Patient Molder Feeder Expl anation Power of Manager Coding for Health Care 01/26/2025 3:50 PM POA HC 10/09/2018 Power of Manager Coding for Health Care 11/11/2019 6:43 AM POA * Full Code (Latest Code Status on File) Date Activated Date Inactivated Comments 02/02/2025 2:25 PM * No CPR-Selective Treatment Date Activated Date Inactivated Comments 01/26/2025 2:54 PM 02/02/2025 2:25 PM Care Teams Log Rider Relationship Specialty Start Date End Date Nati Garcia, [facility] [address] [address] PCP - General Physician Paper Bag Maker 03/24/24 Juan David Ashby MD Consulting Physician General Surgery 12/27/19 Hector Rendon MD [address] [place] [address] Consulting Physician Medical Oncology 12/27/19 Rohit Cardoso MD [address] [place] [address] Consulting Physician Radiation Oncology 12/27/19 Sung Do MD [address] [place] [address] [place] [address] Consulting Physician Cardiovascular Disease - Cardiology 12/28/19 Shawn Alves MD [address] [facility] [address] [place] [address] Consulting Physician Colon and Rectal Surgery 05/10/22
--- OUTSIDE RECORDS SUMMARY | 2025-05-17 12:39 | XMS_ITS | Encounter Summary ---
Author Organization [facility] Address [address] [place] [address] Phone Care Team Providers Care Excavating Machine Operator Name Role Phone Symone Juan David Fisher MD Unavailable Hector Rendon MD Unavailable [phone] Rohit Cardoso MD Unavailable [phone] Sung Do MD Unavailable [phone] Silvano Byrne MD Primary Care Provider Shawn Alves MD Unavailable Nati Garcia [facility] Primary Care Pro vider Reason for Visit * Reason Comments Medication Refill Encounter Details Date Type Department Care Team (Late st Contact Info) Description [facility] [address] [place] [address] Hector Rendon MD [address] [place] [address] Medication Refill Social History Tobacco [...] Start Date Job End Date Certified Nurse Surveillance Systems Analyst Not on file Not on file No t on file documented as of this encounter Miscellaneous Notes * Telephone Encounter - Radha Evans RN - 11/15/2021 11:34 AM CDT Refilled Letrozole documented in this encounter Plan of Treatment Upcoming Encounters Date Type Department Care Team (Late st Contact Info) Description 05/26/2025 2:00 PM PERSONAL FINANCIAL ADVISOR Office Visit [facility] - Primary Care - [place] [address] [place] [address] aNti Garcia PAC [address] [place] [address] 10/25/2025 11:00 AM CDT Office Visit [facility] Oncology Services [address] [place] [address] Hector Rendon MD [address] [place] [address] Discharge Disposition: Discharged to home or Selfcare 10/25/2025 11:30 AM CDT Clinical Support [facility] Oncology Services [address] [place] [phone] Hector Rendon MD [address] [place] [address] Discharge Disposition: Discharged to home or Selfcare [...] documented as of this encounter Care Teams Excavating Machine Operator Relationship Specialty Start Date End Date Silvano Byrne MD [address] [address] PCP - General Family Medicine 02/25/20 03/23/24 Nati Garcia PAC [address] [address] PCP - General Physician Surveillance Systems Analyst 03/24/24 Juan David Ashby MD Consulting Physician General Surgery 12/27/19 Hector Rendon MD [address] [place] [address] Consulting Physician Medical Oncology 12/27/19 Rohit Cardoso MD [address] [place] [address] Consulting Physician Radiation Oncology 12/27/19 Sung Do MD [address] [facility] [address] [place] [address] Consulting Physician Cardiovascular Disease - Cardiology 12/28/19 Shawn Alves MD [address]2 [facility] [address] [place] [address] Consulting Physician Colon and Rectal Surgery 05/10/22 documented as of this encounter
--- OUTSIDE RECORDS SUMMARY | 2025-05-17 12:39 | XMS_ITS | Encounter Summary ---
Author Organization [facility] Address [address] [place] [address] Phone Care Team Providers Care Base Cloth Inspector Name Role Phone SymoneJuan David MD Unavailable Hector Rendon MD Unavailable Rohit Cardoso MD Unavailable Sung Do MD Unavailable Silvano Byrne MD Primary Care Provider [phone] Shawn Alves MD Unavailable Nati Garcia [facility] Primary Care Pro vider Reason for Visit * Reason Comments Medication Refill Encounter Details Date Type Department Care Team (Late st Contact Info) Description 07/29/2021 Refill [facility] - [place] Guido Staples [address] [place] [address] Silvano Byrne MD [address] [place] [address] Medication Refill Social History Tobacco Use Types [...] Start Date Job End Date 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 Showing future appointments within next 90 days and meeting all other requirements NDER HANDLER documented in this encounter Plan of Treatment Upcoming Encounters Date Type Department Care Team (Late st Contact Info) Description 05/26/2025 2:00 PM CYLINDER HANDLER Office Visit [facility] - Primary Care - [place] [address] [place] [phone] Nati Garcia, DEEDEE [address] [place] [address] 10/25/2025 11:00 AM CDT Office Visit [facility] Oncology Services [address] [place] [address] Hector Rendon MD [address] [place] [address] Discharge Disposition: Discharged to home or Selfcare 10/25/2025 11:30 AM CDT Clinical Support [facility] Oncology Services [address] [place] [address] Hector Rendon MD [address] [place] [address] Discharge Disposition: Discharged to home or Selfcare [...] documented as of this encounter Care Teams Base Cloth Inspector Relationship Specialty Start Date End Date Silvano Byrne MD [address] [facility] [address] [place] [address] PCP - General Family Medicine 02/25/20 03/23/24 Nati Garcia, DEEDEE [address] [address] PCP - General Physician Projection Welding Machine Operator 03/24/24 Juan David Ashby MD Consulting Physician General Surgery 12/27/19 Hector Rendon MD [address] [place] [address] Consulting Physician Medical Oncology 12/27/19 Rohit Cardoso MD [address] [place] [address] Consulting Physician Radiation Oncology 12/27/19 Sung Do MD [address] [address] Consulting Physician Cardiovascular Disease - Cardiology 12/28/19 Shawn Alves MD [address] [address] Consulting Physician Colon and Rectal Surgery 05/10/22 documented as of this encounter
[2025-05-17 13:00] LABS: Hematocrit 50.2 % (37.0-47.0); Hemoglobin 16.2 g/dL (12.0-15.0); Immature Granulocyte Percent A 0.5 % (0-0.5); Lymphocytes Absolute Auto 1.23 K/mm3 (0.9-3.2); Mean Corpuscular HGB Conc 32.3 g/dl (32-36); Mean Corpuscular Hemoglobin 25.5 pg (26-34); Mean Corpuscular Volume 79.1 fl (80-100); Nucleated Red Blood Cells Absolute Auto 0.000 K/mm3 (0.0-0.012); Nucleated Red Blood Cells Perc 0.0 % (0.0-0.2); Platelet Count Result 252 k/mm3 (150-375); Red Blood Count 6.35 M/mm3 (4.2-5.4); White Blood Count 8.7 K/mm3 (4.5-10.0)
[2025-05-17 13:12] LABS: Alanine Aminotransferase 19 U/L (6-35); Albumin Level 4.1 g/dL (3.5-5.1); Alkaline Phosphatase 105 U/L (38-126); Anion Gap 8 mmol/L (4-12); Aspartate Amino Transferase 36 U/L (14-36); Bilirubin,Total 1.1 mg/dL (0.2-1.3); Blood Urea Nitrogen 19 mg/dL (7-17); Calcium 9.1 mg/dL (8.4-10.2); Carbon Dioxide 26 mmol/L (22-30); Chloride 100 mmol/L (98-107); Estimated CRCL calculation 55 ml/min; Estimated Glomerular Filt Rate > 60; Glucose 114 mg/dL (65-110); Potassium 4.3 mmol/L (3.4-5.0); Sodium 134 mmol/L (137-145); Total Protein 7.4 g/dL (6.3-8.2)
[2025-05-17 13:20] LABS: INR 1.6; Partial Thromboplastin Time 33.1 Seconds (22.3-36.8); Prothrombin Time 18.9 Seconds (11.1-14.7)
[2025-05-17 13:23] LABS: NT Pro B Type Natriuretic Pept 4700 pg/mL (19.9-100); Troponin I < 0.012 ng/mL (0.000-0.034)
[2025-05-17 13:37] LABS: Influenza A QL RT-PCR Negative (Negative); Influenza B QL RT-PCR Negative (Negative); RSV RNA, RT-PCR Negative (Negative); SARS-CoV-2 RNA PCR Negative (Negative)
--- NOTE | 2025-05-17 13:48 | ED.GENADULT ---
HPI - General Adult General Chief complaint: Shortness of Breath/Dyspnea Stated complaint: sob Time Seen by Provider: 05/17/25 12:29 History of Present Illness HPI narrative: 64-year-old female presented to the emergency department for evaluation for worsening exertional shortness of breath. Patient states she has had the symptoms approximate for the last 3 weeks and initially attributed to her asthma. Patient attempted to get follow-up with her fruit buying grader but this was not going to happen until the . Patient did call her telecommunications clerk was able to have an appointment last Friday and the chest XR at that time did show concern for pulmonary edema, CHF and possible underlying pneumonia. Patient was told to increase her p.o. Lasix from 20 mg the morning to 40 mg in the morning and 20 mg in the evening. Patient reports over the last few days she still continues to have worsening exertional shortness of breath. Related Data Home Medications ?Medication ?Instructions ?Recorded ?Confirmed ?Last Taken ?Type aspirin 81 mg tablet,delayed 81 mg PO DAILY 05/24/19 05/17/25 12/06/24 History release Held on 05/17/25. Instructions: post pacemaker removal December 2024 furosemide 20 mg tablet 40 mg PO DAILY 05/24/19 05/17/25 05/17/25 07:00 History cholecalciferol (vitamin D3) 50 2,000 unit PO DAILY 07/26/19 05/17/25 05/16/25 19:30 History mcg (2,000 unit) tablet letrozole 2.5 mg tablet 2.5 mg PO DAILY 04/06/22 05/17/25 05/17/25 07:00 History levothyroxine 50 mcg tablet 50 mcg PO DAILY 04/06/22 05/17/25 05/17/25 07:00 History metoprolol tartrate 50 mg tablet 50 mg PO BID 04/06/22 05/17/25 05/17/25 07:00 History multivitamin 1 tablet PO DAILY 04/06/22 05/17/25 05/17/25 07:00 History fluticasone furoate 100 1 inh inhalation DAILY 10/20/22 05/17/25 Unknown History mcg-vilanterol 25 mcg/dose inhalation powder (Breo Ellipta) albuterol sulfate 90 mcg/actuation 2 inh inhalation Q4-6H PRN 08/26/24 05/17/25 Unknown History aerosol inhaler shortness of breath or wheezing fluticasone 250 mcg-salmeterol 50 1 inh inhalation Q12H 08/26/24 05/17/25 05/17/25 07:00 History mcg/dose blistr powdr for inhalation (Koby Inhub) acetaminophen 500 mg capsule 500 mg PO Q4H PRN pain 05/17/25 05/17/25 Unknown History amoxicillin 500 mg tablet 500 mg PO Q8H 05/17/25 05/17/25 05/17/25 07:30 History apixaban 5 mg tablet (Eliquis) 5 mg PO BID 05/17/25 05/17/25 05/17/25 07:00 History chlorhexidine gluconate 0.12 % 15 ml PO Q12H 05/17/25 05/17/25 05/17/25 History mouthwash denosumab 60 mg/mL subcutaneous 60 mg subcut [id number] 05/17/25 05/17/25 04/26/25 History syringe (Prolia) ferrous sulfate 325 mg (65 mg 325 mg PO BID 05/17/25 05/17/25 05/17/25 07:00 History iron) tablet mirtazapine 7.5 mg tablet 7.5 mg PO DAILY 05/17/25 05/17/25 05/16/25 21:00 History potassium chloride 20 mEq 20 meq PO DAILY 05/17/25 05/17/25 05/17/25 07:15 History tablet,extended release(part/cryst) Allergies Allergy/AdvReac Type Severity Reaction Status Date / Time levofloxacin Allergy Intermediate Palpitation Verified 05/17/25 16:16 s Quinolones Allergy Intermediate Palpitation Verified 05/17/25 16:16 s naproxen Allergy Mild SHAKY/DIZZU Verified 05/17/25 16:16 Y orphenadrine Allergy Mild SHAKEY/DIZZ Verified 05/17/25 16:16 Y diclofenac Allergy Unknown Dizziness Verified 05/17/25 16:16 cyclobenzaprine AdvReac Mild SHAKEY/DIZZ Verified 05/17/25 16:16 Y metaxalone AdvReac Mild SHAKY/DIZZY Verified 05/17/25 16:16 rofecoxib AdvReac Mild SHAKEY/DIZZ Verified 05/17/25 16:16 Y misoprostol AdvReac Unknown Dizziness Verified 05/17/25 16:16 Review of Systems Review of Systems: All systems reviewed & are unremarkable except as noted in HPI and below PMFSH Past Medical History Medical History (Updated 05/17/25 @ 20:52 by Artur Preston MD) Breast cancer Osteopenia Medicare annual wellness visit, subsequent Headache Asthma Hypothyroidism (acquired) (~2004) History of cardiac pacemaker (~09/2018) FHx: breast cancer Post menopausal problems Skin lesion of face Skin neoplasm Surgical History Surgical History History of lumbosacral spine surgery S/P thyroid surgery (~1998) History of heart surgery (~2006) Family History Family History (Updated 05/17/25 @ 16:37 by Leanne Sousa RN) Mother Skin cancer Family history of malignant neoplasm Brain aneurysm Family history of Alzheimer's disease Hypertension Father Family history of osteoarthritis Family history of malignant neoplasm of kidney Chronic obstructive pulmonary disease Asthma Grandparent Cerebrovascular accident Sibling Colon cancer Grandparent Breast cancer Grandparent Melanoma Sibling Diabetes mellitus Social History Social History Smoking status: Never smoker Second hand tobacco smoke exposure: Yes Alcohol intake: never Substance use: never Substance use type: does not use Lack of Transportation: No Lack of Food: Never True Current Housing: I Have Housing Concerned About Future Housing: No Difficulty Paying Gas/Electric Bills: No Difficulty Paying for Meds: No Currently Unemployed: No Education: High School Diploma/GED Difficulty w/ Childcare or Family Care: No Spiritual care concerns: No Exam Narrative: APPEARANCE: Frail and cachectic appearing HEAD: normocephalic, atraumatic. EYES: PERRLA/EOMI, conjunctivae clear. NOSE: Normal no drainage EARS:TMS clear with good light reflex. THROAT: Pharynx clear, no exudate. NECK: Supple. No adenopathy, no masses. RESPIRATORY: Congested lung sounds bilaterally CARDIOVASCULAR: Regular rate and rhythm without murmurs rubs or gallops. ABDOMINAL: Soft, nontender, nondistended, normal bowel sounds MUSCULOSKELETAL: Bilateral lower extremity pitting edema NEURO: Alert. Cranial nerves II through XII intact. Good gait. Good coordination SKIN: Warm, dry. Normal Color Course Vital Signs Vital signs: Vital Signs Temperature 98.7 F 05/17/25 11:57 Pulse Rate 50 L 05/17/25 11:57 Respiratory Rate 18 05/17/25 11:57 Blood Pressure 173/65 H 05/17/25 11:57 Pulse Oximetry 100 05/17/25 11:57 Oxygen Delivery Room Air 05/17/25 11:57 Temperature 97.6 F 05/17/25 20:00 Pulse Rate 57 L 05/17/25 20:00 Respiratory Rate 16 05/17/25 20:00 Blood Pressure 135/61 05/17/25 20:00 Pulse Oximetry 93 05/17/25 20:00 Oxygen Delivery Room Air 05/17/25 16:00 Medical Decision Making MDM Narrative Medical decision making narrative: 64-year-old female presents to the emergency department for evaluation for worsening exertional shortness of breath. Chest x-ray does show pulmonary edema. Patient is afebrile with no leukocytosis does have hemoglobin of 16.2. Patient's creatinine is similar to her baseline. Patient does have negative troponin but patient does have had elevated Pro BNP at 4700. Patient was negative for influenza RSV and for COVID. Patient appears to have failed outpatient attempts to diurese by increasing her Lasix. Patient would benefit from admission and further cardiac evaluation. Case was discussed with hospitalist and Cardiology was consulted. Patient family were updated on the results of the workup and recommended admission. They are on board with this plan. All questions concerns were addressed patient was well-appearing at time of admission. Patient was treated with an additional 40 mg of IV Lasix prior to admission. Differential Diagnosis Differential Diagnosis: Pneumonia, CHF, asthma, pulmonary embolism Vital Signs Vital Signs: Vital Signs Temperature 98.7 F 05/17/25 11:57 Pulse Rate 50 L 05/17/25 11:57 Respiratory Rate 18 05/17/25 11:57 Blood Pressure 173/65 H 05/17/25 11:57 Pulse Oximetry 100 05/17/25 11:57 Oxygen Delivery Room Air 05/17/25 11:57 Temperature 97.6 F 05/17/25 20:00 Pulse Rate 57 L 05/17/25 20:00 Respiratory Rate 16 05/17/25 20:00 Blood Pressure 135/61 05/17/25 20:00 Pulse Oximetry 93 05/17/25 20:00 Oxygen Delivery Room Air 05/17/25 16:00 Lab Data Lab results reviewed: Yes I reviewed the patient's lab results. 05/17/25 12:34 05/17/25 12:34 Labs: Lab Results 05/17/25 Range/Units 12:34 WBC 8.7 (4.5-10.0) K/mm3 RBC 6.35 H (4.2-5.4) M/mm3 Hgb 16.2 H (12.0-15.0) g/dL Hct 50.2 H (37.0-47.0) % MCV 79.1 L (80-100) fl MCH 25.5 L (26-34) pg MCHC 32.3 (32-36) g/dl RDW 19.7 H (11.5-14.5) % Plt Count 252 (150-375) k/mm3 MPV 11.6 H (7.4-10.4) fl Immature Gran % (Auto) 0.5 (0-0.5) % Neut % (Auto) 76.4 H (45.5-73.1) % Lymph % (Auto) 14.1 L (18.3-44.2) % [place]alfa % (Auto) 7.6 (2.6-8.5) % Eos % (Auto) 0.3 (0-4.4) % Baso % (Auto) 1.1 (0.2-1.2) % Lymph # (Auto) 1.23 (0.9-3.2) K/mm3 [place] # (Auto) 0.7 H (0.1-0.6) K/mm3 Eos # (Auto) 0.0 (0-0.3) K/mm3 Baso # (Auto) 0.1 (0.0-0.1) K/mm3 Abs Immat Gran (auto) 0.04 H (0.00-0.031) K/mm3 Absolute Neuts (auto) 6.7 (1.3-6.7) K/mm3 Absolute Nucleated RBC 0.000 (0.0-0.012) K/mm3 Nucleated RBC % 0.0 (0.0-0.2) % PT 18.9 H (11.1-14.7) Seconds INR 1.6 APTT 33.1 (22.3-36.8) Seconds Sodium 134 L (137-145) mmol/L Potassium 4.3 (3.4-5.0) mmol/L Chloride 100 (98-107) mmol/L Carbon Dioxide 26 (22-30) mmol/L Anion Gap 8 (4-12) mmol/L BUN 19 H (7-17) mg/dL Creatinine 0.76 (0.7-1.0) mg/dL Estim Creat Clear Calc 55 ml/min Estimated GFR > 60 (59 - ) Glucose 114 H (65-110) mg/dL Calcium 9.1 (8.4-10.2) mg/dL Total Bilirubin 1.1 (0.2-1.3) mg/dL AST 36 (14-36) U/L ALT 19 (6-35) U/L Alkaline Phosphatase 105 (38-126) U/L Troponin I < 0.012 (0.000-0.034) ng/mL NT-Pro-B Natriuret Pep 4700 H (19.9-100) pg/mL Total Protein 7.4 (6.3-8.2) g/dL Albumin 4.1 (3.5-5.1) g/dL Influenza A (RT-PCR) Negative (Negative) Influenza B (RT-PCR) Negative (Negative) RSV (RT-PCR) Negative (Negative) SARS-CoV-2 RNA (RT-PCR) Negative (Negative) Imaging Data Attestation: I personally reviewed and interpreted this imaging study as follows: My impression: Chest x-ray: Pulmonary edema Radiologist's impression: Impressions Chest X-Ray 05/17/25 13:02 IMPRESSION: 1. Small persistent effusions with bibasilar atelectatic and/or consolidative changes which could represent pulmonary edema and/or pneumonia. No definite change from May 12 chest x-ray. ECG Data EKG #1: Attestation: I personally reviewed and interpreted this ECG as follows: Interpretation: Paced rate Discharge Plan Discharge Clinical Impression: Exertional dyspnea, CHF (congestive heart failure) Patient Disposition: Still a Patient Condition: Serious
[2025-05-17] MEDS: FUROSEMIDE INJ 40 MG/4 ML VIAL IV PUSH ×2 (14:31→21:07)
--- NOTE | 2025-05-17 14:54 | WPCEDHO ---
ED Hand Off Checklist All vitals saved: yes IV Site documented: yes All med administrations documented: yes Triage Note Triage Note Patient to ED with c/o SOB x 1 05/17/25 12:23 week. Patient saw cardiology last week and had a CXR taken. Per family, CXR showed CHF and pneumonia. Patient older sister in triage helping provide historical information. Patient has apt with her botany laboratory assistant is on 05/20, but didn't think she could wait that long to be seen. Patient reports SOB is worse with exertion. Patient AO x 4. Patient in NAD. agree w triage note. Allergies cyclobenzaprine Allergy (Mild, Verified 05/17/25 12:02) SHAKEY/DIZZY levofloxacin Allergy (Mild, Verified 05/17/25 12:02) Itching metaxalone Allergy (Mild, Verified 05/17/25 12:02) SHAKY/DIZZY naproxen Allergy (Mild, Verified 05/17/25 12:02) SHAKY/DIZZUY orphenadrine Allergy (Mild, Verified 05/17/25 12:02) SHAKEY/DIZZY Quinolones Allergy (Mild, Verified 05/17/25 12:02) Dizziness rofecoxib Allergy (Mild, Verified 05/17/25 12:02) SHAKEY/DIZZY diclofenac Allergy (Unknown, Verified 05/17/25 12:02) Dizziness misoprostol Allergy (Unknown, Verified 05/17/25 12:02) Dizziness Family History (Last Reviewed 08/26/24 @ 16:54 by Cami Braun, MARQUITA) Mother Hypertension Family history of elevated blood lipids Family history of Alzheimer's disease Family history of malignant neoplasm Father Asthma Family history of osteoarthritis Family history of chronic obstructive pulmonary disease Family history of malignant neoplasm of kidney Other Cerebrovascular accident Diabetes mellitus Family history of arthritis Family history of gout Family history of mental disorder Administered/Completed Medications Discontinued Medications Furosemide (Furosemide Inj 40 Mg/4 Ml Vial) 40 mg IV PUSH ONCE STA Stop: 05/17/25 13:53 Last Admin: 05/17/25 14:31 Dose: 40 mg Documented By: BUFFY Interventions/Assessments IV / Saline Lock, Insert Start: 05/17/25 12:21 Freq: STAT Status: Active Protocol: Document 05/17/25 12:53 MLI (Rec: 05/17/25 12:53 MLI [id number]) IV Assessment Peripheral Access Right Wrist IV Catheter Access Initiated IV Insertion Date 05/17/25 IV Insertion Time 12:53 Catheter Gauge 20 IV Insertion 1 Attempts IV Site Assessment WNL IV Care and WNL Maintenance PA: Cardiovascular Assessment Start: 05/17/25 11:44 Freq: Status: Active Protocol: Document 05/17/25 13:23 MLI (Rec: 05/17/25 13:23 MLI [id number]) Cardiovascular Assessment Cardiovascular Dyspnea Symptoms PA: Respiratory Assessment Start: 05/17/25 11:44 Freq: Status: Active Protocol: Document 05/17/25 13:23 MLI (Rec: 05/17/25 13:23 MLI [id number]) Respiratory Assessment Symptoms Shortness of Breath With Exertion Effort Normal Pattern Regular Depth Normal Chest Expansion Symmetrical Adult Capillary Normal/Less than 2 Seconds Refill Cough Description None Oxygen Delivery Oxygen Delivery Room Air Last Vital Signs Temperature 98.7 F 05/17/25 11:57 Pulse Rate 51 L 05/17/25 14:28 Respiratory Rate 21 H 05/17/25 14:28 Pulse Oximetry 96 05/17/25 14:28 Blood Pressure 172/66 H 05/17/25 14:28 Blood Pressure Mean 101 05/17/25 14:28 Blood Pressure Position Sitting 05/17/25 11:57 Oxygen Delivery Room Air 05/17/25 13:23 Weight 53.2 kg 05/17/25 12:23 Last Result - Abnormals Only RBC 6.35 M/mm3 (4.2-5.4) H 05/17/25 12:34 Hgb 16.2 g/dL (12.0-15.0) H 05/17/25 12:34 Hct 50.2 % (37.0-47.0) H 05/17/25 12:34 MCV 79.1 fl (80-100) L 05/17/25 12:34 MCH 25.5 pg (26-34) L 05/17/25 12:34 RDW 19.7 % (11.5-14.5) H 05/17/25 12:34 MPV 11.6 fl (7.4-10.4) H 05/17/25 12:34 Neut % (Auto) 76.4 % (45.5-73.1) H 05/17/25 12:34 Lymph % (Auto) 14.1 % (18.3-44.2) L 05/17/25 12:34 [place] # (Auto) 0.7 K/mm3 (0.1-0.6) H 05/17/25 12:34 Abs Immat Gran (auto) 0.04 K/mm3 (0.00-0.031) H 05/17/25 12:34 PT 18.9 Seconds (11.1-14.7) H 05/17/25 12:34 Sodium 134 mmol/L (137-145) L 05/17/25 12:34 BUN 19 mg/dL (7-17) H 05/17/25 12:34 Glucose 114 mg/dL (65-110) H 05/17/25 12:34 NT-Pro-B Natriuret Pep 4700 pg/mL (19.9-100) H 05/17/25 12:34 Most Recent Suicide Severity Rating Suicide Severity Rating NO RISK INDICATED 05/17/25 12:23
--- NOTE | 2025-05-17 16:08 | PC.NURSE ---
This patient, Mariam Parish, was admitted to IMU Room 211-01. Patient/family oriented to hospital policies and general routines including ID bracelet, bed and alarms, visiting hours, pain management, procedures, bathroom and other care routines, personal items, smoking policy, room service/diet, and visiting hours. Information on how to activate the Rapid Response Team has been discussed. Patient/Family are encouraged to report perceived risks to care and to ask questions if they do not understand what they are told or what they should do.
[2025-05-17] MEDS: AMOXICILLIN 500 MG CAPSULE PO (18:26)
[2025-05-17] MEDS: METOPROLOL TARTRATE 50 MG TAB PO (21:06)
[2025-05-17] MEDS: MIRTAZAPINE 7.5 MG TABLET PO (21:07)
[2025-05-17] MEDS: CHLORHEXIDINE GLUCONATE 0.12% ORAL RINSE 473 ML BTL (*BKC) 15 ML SWISH/SPIT (21:07)
[2025-05-17] MEDS: APIXABAN 5 MG TABLET PO (21:07)
--- NOTE | 2025-05-17 22:26 | PM.IMHP ---
H&P: HPI History of Present Illness Date/Time: 05/17/25 1630 Chief Complaint: Dyspnea Narrative: 64-year-old female with past medical history of breast cancer, asthma, hypothyroidism, HFrEF s/p pacemaker, mitral valve repair presents to the ED on 05/17/2025 with complaints of worsening dyspnea on exertion. Patient states the symptoms have been present for about 3 weeks and initially believed it was her asthma. She states that she is unable to walk more than a few feet without needing to stop and rest. Patient made a follow-up appointment with her safety lamp keeper but is unable to get in until the of this month. Patient did reach out to her pbx manager an had a chest x-ray on 05/12 which showed CHF with superimposed probable pneumonia. Patient was instructed to increase her Lasix from 20 daily to 40 in the morning and 20 in the evening. Patient felt that this did not help her much and presented to the ED. patient denies fevers, cough, chills, abdominal pain, diarrhea, nausea or vomiting. 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 PT 18.9, sodium 134, BUN 19. Creatinine and GFR within normal range. BNP 4700. Troponin negative. Viral panel negative. EKG with ventricular pacemaker with rate of 56 Chest x-ray today shows small persistent effusions with bibasilar atelectasis and/or consolidative changes, representing pulmonary edema and/or pneumonia. No definite change from 05/12 x-ray Review of Systems Review of Systems: All systems reviewed & are unremarkable except as noted in HPI and below [facility] Past Medical History Medical History (Updated 05/17/25 @ 23:14 by Lin Taylor APRN) Breast cancer Osteopenia Medicare annual wellness visit, subsequent Headache Asthma Hypothyroidism (acquired) (~2004) History of cardiac pacemaker (~09/2018) FHx: breast cancer Post menopausal problems Skin lesion of face Skin neoplasm Surgical History Surgical History History of lumbosacral spine surgery S/P thyroid surgery (~1998) History of heart surgery (~2006) Family History Family History (Updated 05/17/25 @ 16:37 by Leanne Sousa RN) Mother Skin cancer Family history of malignant neoplasm Brain aneurysm Family history of Alzheimer's disease Hypertension Father Family history of osteoarthritis Family history of malignant neoplasm of kidney Chronic obstructive pulmonary disease Asthma Grandparent Cerebrovascular accident Sibling Colon cancer Grandparent Breast cancer Grandparent Melanoma Sibling Diabetes mellitus Social History Social History Smoking status: Never smoker Second hand tobacco smoke exposure: Yes Alcohol intake: never Substance use: never Substance use type: does not use Lack of Transportation: No Lack of Food: Never True Current Housing: I Have Housing Concerned About Future Housing: No Difficulty Paying Gas/Electric Bills: No Difficulty Paying for Meds: No Currently Unemployed: No Education: High School Diploma/GED Difficulty w/ Childcare or Family Care: No Spiritual care concerns: No Meds Home Medications and Allergies Home Medications ?Medication ?Instructions ?Recorded ?Confirmed ?Type aspirin 81 mg tablet,delayed 81 mg PO DAILY 05/24/19 05/17/25 History release Held on 05/17/25. Instructions: post pacemaker removal December 2024 furosemide 20 mg tablet 40 mg PO DAILY 05/24/19 05/17/25 History cholecalciferol (vitamin D3) 50 2,000 unit PO DAILY 07/26/19 05/17/25 History mcg (2,000 unit) tablet letrozole 2.5 mg tablet 2.5 mg PO DAILY 04/06/22 05/17/25 History levothyroxine 50 mcg tablet 50 mcg PO DAILY 04/06/22 05/17/25 History metoprolol tartrate 50 mg tablet 50 mg PO BID 04/06/22 05/17/25 History multivitamin 1 tablet PO DAILY 04/06/22 05/17/25 History fluticasone furoate 100 1 inh inhalation DAILY 10/20/22 05/17/25 History mcg-vilanterol 25 mcg/dose inhalation powder (Breo Ellipta) albuterol sulfate 90 mcg/actuation 2 inh inhalation Q4-6H PRN 08/26/24 05/17/25 History aerosol inhaler shortness of breath or wheezing fluticasone 250 mcg-salmeterol 50 1 inh inhalation Q12H 08/26/24 05/17/25 History mcg/dose blistr powdr for inhalation (Wixela Inhub) acetaminophen 500 mg capsule 500 mg PO Q4H PRN pain 05/17/25 05/17/25 History amoxicillin 500 mg tablet 500 mg PO Q8H 05/17/25 05/17/25 History apixaban 5 mg tablet (Eliquis) 5 mg PO BID 05/17/25 05/17/25 History chlorhexidine gluconate 0.12 % 15 ml PO Q12H 05/17/25 05/17/25 History mouthwash denosumab 60 mg/mL subcutaneous 60 mg subcut [id number] 05/17/25 05/17/25 History syringe (Prolia) ferrous sulfate 325 mg (65 mg 325 mg PO BID 05/17/25 05/17/25 History iron) tablet mirtazapine 7.5 mg tablet 7.5 mg PO DAILY 05/17/25 05/17/25 History potassium chloride 20 mEq 20 meq PO DAILY 05/17/25 05/17/25 History tablet,extended release(part/cryst) Allergies Allergy/AdvReac Type Severity Reaction Status Date / Time levofloxacin Allergy Intermediate Palpitation Verified 05/17/25 16:16 s Quinolones Allergy Intermediate Palpitation Verified 05/17/25 16:16 s naproxen Allergy Mild SHAKY/DIZZU Verified 05/17/25 16:16 Y orphenadrine Allergy Mild SHAKEY/DIZZ Verified 05/17/25 16:16 Y diclofenac Allergy Unknown Dizziness Verified 05/17/25 16:16 cyclobenzaprine AdvReac Mild SHAKEY/DIZZ Verified 05/17/25 16:16 Y metaxalone AdvReac Mild SHAKY/DIZZY Verified 05/17/25 16:16 rofecoxib AdvReac Mild SHAKEY/DIZZ Verified 05/17/25 16:16 Y misoprostol AdvReac Unknown Dizziness Verified 05/17/25 16:16 Vital Signs Vital Signs - 24 hr 05/17/25 11:57 05/17/25 13:23 05/17/25 13:23 Temperature 98.7 F Pulse Rate 50 L 54 L Respiratory Rate 18 21 H Blood Pressure 173/65 H 184/76 H Pulse Oximetry 100 100 Oxygen Delivery Room Air Room Air 05/17/25 14:28 05/17/25 16:00 05/17/25 16:00 Temperature 97.4 F L Pulse Rate 51 L 52 L Respiratory Rate 21 H 16 Blood Pressure 172/66 H 156/73 H Pulse Oximetry 96 95 Oxygen Delivery Room Air 05/17/25 16:00 05/17/25 18:00 05/17/25 20:00 Temperature 97.6 F Pulse Rate 52 L 54 L 57 L Respiratory Rate 16 Blood Pressure 135/61 Pulse Oximetry 93 Oxygen Delivery 05/17/25 20:00 05/17/25 20:00 05/17/25 21:06 Temperature Pulse Rate 58 L 58 L 50 L Respiratory Rate 16 Blood Pressure Pulse Oximetry 93 Oxygen Delivery Room Air 05/17/25 21:59 Temperature Pulse Rate 54 L Respiratory Rate Blood Pressure Pulse Oximetry Oxygen Delivery Exam Narrative: GENERAL: Cachectic appearing. No acute distress HEAD: Normocephalic, atraumatic. EYES: PERRLA. Conjunctivae clear. NOSE: Normal no drainage. THROAT: Pharynx clear, no exudate. NECK: Trachea midline. No adenopathy, no masses. RESPIRATORY: Airway patent, respirations nonlabored. Rhonchi bilaterally. CARDIOVASCULAR: Regular rate and rhythm BREASTS: Defer GASTROINTESTINAL: Abdomen is soft and nontender. No organomegaly. Bowel sounds normal in all quadrants. GENITOURINARY:.. We can place with clear yellow urine MUSCULOSKELETAL: Moves all extremities. No gross deformities. Bilateral lower extremity pitting 3+ edema SKIN: Warm, dry, normal color. NEURO: A&O X4. Speech clear PSYCHIATRIC: Normal interaction H&P: Results Labs Labs: Short CBC 05/17/25 Range/Units 12:34 WBC 8.7 (4.5-10.0) K/mm3 Hgb 16.2 H (12.0-15.0) g/dL Hct 50.2 H (37.0-47.0) % Plt Count 252 (150-375) k/mm3 [facility] 05/17/25 12:34 Sodium 134 L Potassium 4.3 Chloride 100 Carbon Dioxide 26 BUN 19 H Creatinine 0.76 Glucose 114 H Calcium 9.1 Cardiac Enzymes 05/17/25 Range/Units 12:34 Troponin I < 0.012 (0.000-0.034) ng/mL Liver Function 05/17/25 Range/Units 12:34 Total Bilirubin 1.1 (0.2-1.3) mg/dL AST 36 (14-36) U/L ALT 19 (6-35) U/L Alkaline Phosphatase 105 (38-126) U/L Albumin 4.1 (3.5-5.1) g/dL Assessment and Plan Assessment and plan (1) CHF (congestive heart failure): Qualifiers: Heart failure type: unspecified Heart failure chronicity: acute on chronic Qualified Code(s): I50.9 - Heart failure, unspecified Code(s): I50.9 - Heart failure, unspecified Status: Acute Assessment and Plan: About 3 weeks of increasing dyspnea on exertion. Patient initially believed it was related to her asthma. Patient did reach out to her pbx manager an had a chest x-ray on 05/12 which showed CHF with superimposed probable pneumonia. Patient was instructed to increase her Lasix from 20 daily to 40 in the morning and 20 in the evening. Patient felt that this did not help her much and presented to the ED. - BNP 4700 - most recent echo from September 2019 with EF of 48%, 0 left ventricular size mild global left ventricular systolic dysfunction. Impaired diastolic relaxation grade 1 - currently on: Furosemide 20 mg before directed to increased recently by Cardiology. - monitor I&Os and daily weights - trend renal function -1 time dose furosemide 40 mg IVP given in ED -furosemide 40 mg IVP Q 12 -echo ordered -cardiology consult (2) Hypothyroidism (acquired): Onset Date: ~2004 Code(s): E03.9 - Hypothyroidism, unspecified Status: Chronic Assessment and Plan: Continue home levothyroxine (3) Breast cancer: Qualifiers: Breast location: unspecified site of breast Estrogen receptor status: unspecified Patient sex: female Laterality: unspecified laterality Qualified Code(s): C50.919 - Malignant neoplasm of unspecified site of unspecified female breast Code(s): C50.919 - Malignant neoplasm of unspecified site of unspecified female breast Status: Chronic Assessment and Plan: History of breast cancer -continue letrozole 2.5 mg daily (4) Asthma: Qualifiers: Asthma severity: unspecified severity Asthma persistence: unspecified Asthma complication type: unspecified Qualified Code(s): J45.909 - Unspecified asthma, uncomplicated Code(s): J45.909 - Unspecified asthma, uncomplicated Status: Chronic Assessment and Plan: History of asthma. Home meds fluticasone salmeterol and albuterol inhaler p.r.n. -DuoNebs q.6 p.r.n. Plan Diet: Heart healthy GI prophylaxis: NA DVT prophylaxis: SCDs lines/drains: PIV Fluids: NA Code status: DNR Quality VTE Prophylaxis VTE prophylaxis: mechanical ordered Hospitalist MIPS Advance Care Plan I have confirmed that the patient's Advanced Care Plan is present, code status is documented, or surrogate decision maker is listed in patient medical record.: Yes Medication Reconciliation I have utilized all available resources to obtain, update and review the patients current medications (includes all prescriptions, OTC, herbals, cannabis, and nutritional supplements).: Yes
[2025-05-18] VITALS (19 sets, daily range): BP systolic 123–161; BP diastolic 54–60; PULSE 48–97; RESP 16–22; TEMP 36.2–36.8; O2SAT 91–97
--- NOTE | 2025-05-18 | ECHO_ITS ---
Patient Info Name: Mariam Parish Age: 64 years : 1960 Gender: Female Ht: 64 in Wt: 115 lbs BSA: 1.53 m2 HR: 58 bpm BP: 154 / 60 mmHg Technical Quality: Poor Exam Date: 05/18/2025 10:40 AM Patient Status: I Admit Date: 05/17/2025 Exam Type: CA echo dop color flow w con Complete two-dimensional, color flow and Doppler transthoracic echocardiogram is performed with contrast to opacify the left ventricle and to improve the deliniation of the left ventricle endocardial borders. Staff Referring Physician: Artur Preston Card Hanger: Jaida Banks Attending Provider: Melquiades Santizo Contrast/Agitated Saline Contrast/Ag. Saline: Definity Amount: 2.00 ml Reason for Poor Study: poor echocardiographic windows Summary 1. The left ventricle is normal in size with mildly reduced systolic function. The left ventricular ejection fraction is visually estimated to be 45-50%. 2. Abnormal septal motion consistent with a paced rhythm. 3. The right ventricle is normal in size and systolic function. 4. The aortic valve is trileaflet and calcified. There is mild aortic stenosis secondary to restriction of the left coronary cusps. There is trace aortic regurgitation. 5. There is a mitral annuloplasty ring. There is no mitral stenosis. There is trace mitral regurgitation. 6. The tricuspid valve is normal. There is moderate tricuspid regurgitation. 7. Normal inferior vena cava with <50% collapse upon inspiration consistent with elevated right atrial pressure, 8 mmHg. Left Ventricle The left ventricle is normal in size with mildly reduced systolic function. The left ventricular ejection fraction is visually estimated to be 45-50%. Abnormal septal motion consistent with a paced rhythm. Right Ventricle The right ventricle is normal in size and systolic function. Left Atria The left atrium is normal size. Right Atria The right atrium is normal size. Atrial Septum The atrial septum is not well visualized. Aortic Valve The aortic valve is trileaflet and calcified. There is mild aortic stenosis secondary to restriction of the left coronary cusps. There is trace aortic regurgitation. Pulmonic Valve The pulmonic valve is grossly normal. There is mild pulmonic valve regurgitation. Mitral Valve There is a mitral annuloplasty ring. There is no mitral stenosis. There is trace mitral regurgitation. Tricuspid Valve The tricuspid valve is normal. There is moderate tricuspid regurgitation. Pericardium/Pleural Pericardium is normal in appearance with no evidence for significant pericardial effusion. Inferior Vena Cava Normal inferior vena cava with <50% collapse upon inspiration consistent with elevated right atrial pressure, 8 mmHg. Aorta The aortic root at the level of the sinus of Valsalva measures 2.8 cm in diameter. Left Ventricular Outflow Tract Name Value Normal LVOT 2D LVOT Diameter 2.0 cm LVOT Doppler LVOT Peak Velocity 86 cm/s LVOT Peak Gradient 2 mmHg LVOT Mean Gradient 1 mmHg LVOT VTI 19 cm LVOT VTI/AV VTI Ratio 0.4 LVOT Stroke Volume 57 ml LVOT CO 2.6 l/min LVOT CI 1.7 l/min/m2 Pulmonic Valve Name Value Normal RVOT Doppler RVOT Peak Velocity 55 cm/s RVOT Peak Gradient 1 mmHg PV Doppler PV Peak Velocity 99 cm/s PV Peak Gradient 4 mmHg PV Regurgitation Doppler [place] Peak End Diastolic Velocity 101 cm/s Mitral Valve Name Value Normal MV Diastolic Function MV E Peak Velocity 122 cm/s MV A Peak Velocity 73 cm/s MV E/A 1.7 MV Decel Time (PW) 345 ms MV Annular TDI MV E/e' (Septal) 33.4 MV E/e' (Lateral) 16.3 MV E/e' (Average) 24.8 Tricuspid Valve Name Value Normal TV Regurgitation Doppler TR Peak Velocity 298 cm/s TR Peak Gradient 35 mmHg Estimated PAP/RSVP RA Pressure 8 mmHg <=5 PA Systolic Pressure 43 mmHg <36 RV Systolic Pressure 43 mmHg <36 Aortic Valve Name Value Normal AV Doppler AV Peak Velocity 180 cm/s AV Peak Gradient 11 mmHg AV Mean Gradient 6 mmHg AV VTI 44 cm AV Area (Cont Eq VTI) 1.3 cm2 >=3.0 AV Area (Cont Eq Jonas) 1.4 cm2 AV DI (Jonas) 0.48 AV Regurgitation 2D LVOT Area 3.0 cm2 Ventricles Name Value Normal LV Dimensions 2D/MM IVS Diastolic Thickness (2D) 0.8 cm 0.6-1.0 LVID Diastole (2D) 3.6 cm 3.8-5.2 LVIW Diastolic Thickness (2D) 0.5 cm 0.6-0.9 LVID Systole (2D) 2.7 cm 2.2-3.5 LVOT Diameter 2.0 cm LV Mass (2D Cubed) 61.39 g 67.00-162.00 LV Mass Index (2D Cubed) 40 g/m2 43-95 Relative Wall Thickness (2D) 0.31 <=0.42 LV Fractional Shortening/Ejection Fraction 2D/MM LV Fractional Shortening (2D) 24 % 27-45 LV EF (2D Teichholz) 48 % LV Diastolic Volume (4C MOD) 58 ml LV EF (4C MOD) 32 % LV Diastolic Volume (2C MOD) 74 ml LV EF (2C MOD) 53 % LV Diastolic Volume (BP MOD) 66 ml 46-106 LV Diastolic Volume Index (BP MOD) 43 ml/m2 29-61 LV Systolic Volume (BP MOD) 37 ml 14-42 LV Systolic Volume Index (BP MOD) 24 ml/m2 8-24 LV EF (BP MOD) 43 % 54-74 LV Diastolic Length (4C) 7.2 cm LV Systolic Length (4C) 6.0 cm LV Stroke Volume (4C MOD) 18 ml Atria Name Value Normal LA Dimensions LA Volume (4C A-L) 37 ml LA Volume (BP A-L) 39 ml RA Dimensions RA Systolic [place] Length (4C) 3.5 cm 2.2-2.8 RA Area (4C) 8.1 cm2 <=18.0 Report Signatures
[2025-05-18 03:45] LABS: Hematocrit 47.5 % (37.0-47.0); Hemoglobin 15.0 g/dL (12.0-15.0); Immature Granulocyte Percent A 0.5 % (0-0.5); Lymphocytes Absolute Auto 0.96 K/mm3 (0.9-3.2); Mean Corpuscular HGB Conc 31.6 g/dl (32-36); Mean Corpuscular Hemoglobin 25.3 pg (26-34); Mean Corpuscular Volume 80.0 fl (80-100); Nucleated Red Blood Cells Absolute Auto 0.000 K/mm3 (0.0-0.012); Nucleated Red Blood Cells Perc 0.0 % (0.0-0.2); Platelet Count Result 197 k/mm3 (150-375); Red Blood Count 5.94 M/mm3 (4.2-5.4); White Blood Count 6.5 K/mm3 (4.5-10.0)
[2025-05-18 04:05] LABS: Albumin Level 3.7 g/dL (3.5-5.1); Anion Gap 7 mmol/L (4-12); Blood Urea Nitrogen 17 mg/dL (7-17); Calcium 8.6 mg/dL (8.4-10.2); Carbon Dioxide 32 mmol/L (22-30); Chloride 96 mmol/L (98-107); Estimated CRCL calculation 56 ml/min; Estimated Glomerular Filt Rate > 60; Glucose 93 mg/dL (65-110); Potassium 3.5 mmol/L (3.4-5.0); Sodium 135 mmol/L (137-145)
[2025-05-18 04:11] LABS: NT Pro B Type Natriuretic Pept 4300 pg/mL (19.9-100)
[2025-05-18] MEDS: LEVOTHYROXINE SODIUM 50 MCG TABLET PO (05:36)
[2025-05-18] MEDS: MULTIVITAMINS THERAPEUTIC TAB (*BKC) 1 TABLET PO (08:52)
[2025-05-18] MEDS: CHOLECALCIFEROL (VITAMIN D3) 25 MCG (1,000 UNITS) TABLET 50 MCG PO (08:52)
[2025-05-18] MEDS: APIXABAN 5 MG TABLET PO ×2 (08:52→20:36)
[2025-05-18] MEDS: POTASSIUM CHLORIDE 20 MEQ PACKET (FOR LIQUID) PO (08:52)
[2025-05-18] MEDS: FUROSEMIDE INJ 40 MG/4 ML VIAL IV PUSH ×2 (08:52→20:36)
[2025-05-18] MEDS: FERROUS SULFATE 325 MG TABLET PO ×2 (08:52→17:34)
[2025-05-18] MEDS: LETROZOLE (*CHEMO) 2.5 MG TABLET PO (08:52)
[2025-05-18] MEDS: METOPROLOL TARTRATE 50 MG TAB PO (08:52)
[2025-05-18] MEDS: CHLORHEXIDINE GLUCONATE 0.12% ORAL RINSE 473 ML BTL (*BKC) 15 ML SWISH/SPIT ×2 (08:55→20:36)
[2025-05-18] MEDS: PERFLUTREN LIPID MICROSPHERES 1.5 ML VIAL DILUTED TO 10 ML TOTAL VOLUME IV PUSH (11:49)
--- NOTE | 2025-05-18 11:49 | IVDEFINITY ---
Prior to administration of IV Definity the patient was educated on the risks and benefits of the imaging enhancing agent including potential adverse side effects. The patient verbalized understanding. Allergies were verified. No exclusion criteria were identified and at least one of the following inclusion criteria were met: 1) physician request, 2) patient technically difficult to image (per the [place] [employer] guidelines of two or more segments not discernable within the apical view), or 3) questionable left ventricular function. ?
--- NOTE | 2025-05-18 11:54 | PM.CNCAR ---
Assessment and Plan Assessment and plan (1) CHF (congestive heart failure): Qualifiers: Heart failure chronicity: acute on chronic Heart failure type: unspecified Qualified Code(s): I50.9 - Heart failure, unspecified Code(s): I50.9 - Heart failure, unspecified Status: Acute (2) Complete heart block: Code(s): I44.2 - Atrioventricular block, complete Status: Acute (3) Mitral valve regurgitation: Code(s): I34.0 - Nonrheumatic mitral (valve) insufficiency Status: Acute Plan 64-year-old woman with chronic systolic heart failure likely in setting of chronic RV pacing, complete heart block status post dual chamber permanent pacemaker with high RV pacing percentage for which she was upgraded to a Bi V pacemaker with recent infection leading to device removal and reimplantation with a leadless pacemaker in 12/2024, mitral valve regurgitation status post repair, history of breast cancer, hypothyroidism, asthma presented with worsening shortness of breath Acute on chronic systolic heart failure -continue Lasix 40 mg IV push b.i.d. -she will need to see her EP physician in clinic for consideration of Bi V pacemaker Complete heart block status post dual-chamber pacemaker with high RV pacing percentage for which she upgraded to Bi V pacemaker with recent infection leading to device removal reimplantation with leadless pacemaker -normal function device -follow-up in the EP Clinic Mitral valve regurgitation status post repair -stable History of Present Illness History of Present Illness Consult date/time: 05/18/25 11:54 Requesting physician: Lin Taylor APRN Consult reason: shortness of breath Reason For Visit: Exertional Shortness of Breath/CHF Narrative: 64-year-old woman with chronic systolic heart failure likely in setting of chronic RV pacing, complete heart block status post dual chamber permanent pacemaker with high RV pacing percentage for which she was upgraded to a Bi V pacemaker with recent infection leading to device removal and reimplantation with a view this pacemaker in 12/2024, mitral valve regurgitation status post repair, history of breast cancer, hypothyroidism, asthma presented with worsening shortness of breath. For the last 3 months, she has been experiencing worsening exertional dyspnea. Three weeks ago, she noted that the breathing significantly worsened and she was not able to ambulate without having significant shortness of breath. Denies any chest discomfort. She typically sleeps in a recliner and unable to determine if she has any orthopnea. However when she is lays supine, she did not complain of any respiratory distress. No lower extremity swelling. Denies any syncopal events. Review of Systems Cardiovascular: Cardiovascular: Reports as per HPI Respiratory: Respiratory: Reports as per HPI [facility] Past Medical History Medical History (Updated 05/18/25 @ 12:27 by Samuel Fleming MD) Breast cancer Osteopenia Medicare annual wellness visit, subsequent Headache Asthma Hypothyroidism (acquired) (~2004) History of cardiac pacemaker (~09/2018) FHx: breast cancer Post menopausal problems Skin lesion of face Skin neoplasm Surgical History Surgical History History of lumbosacral spine surgery S/P thyroid surgery (~1998) History of heart surgery (~2006) Family History Family History (Updated 05/17/25 @ 16:37 by Leanne Sousa RN) Mother Skin cancer Family history of malignant neoplasm Brain aneurysm Family history of Alzheimer's disease Hypertension Father Family history of osteoarthritis Family history of malignant neoplasm of kidney Chronic obstructive pulmonary disease Asthma Grandparent Cerebrovascular accident Sibling Colon cancer Grandparent Breast cancer Grandparent Melanoma Sibling Diabetes mellitus Social History Social History Smoking status: Never smoker Second hand tobacco smoke exposure: Yes Alcohol intake: never Substance use: never Substance use type: does not use Lack of Transportation: No Lack of Food: Never True Current Housing: I Have Housing Concerned About Future Housing: No Difficulty Paying Gas/Electric Bills: No Difficulty Paying for Meds: No Currently Unemployed: No Education: High School Diploma/GED Difficulty w/ Childcare or Family Care: No Spiritual care concerns: No Meds Home Medications and Allergies Home Medications ?Medication ?Instructions ?Recorded ?Confirmed ?Type aspirin 81 mg tablet,delayed 81 mg PO DAILY 05/24/19 05/17/25 History release Held on 05/17/25. Instructions: post pacemaker removal December 2024 furosemide 20 mg tablet 40 mg PO DAILY 05/24/19 05/17/25 History cholecalciferol (vitamin D3) 50 2,000 unit PO DAILY 07/26/19 05/17/25 History mcg (2,000 unit) tablet letrozole 2.5 mg tablet 2.5 mg PO DAILY 04/06/22 05/17/25 History levothyroxine 50 mcg tablet 50 mcg PO DAILY 04/06/22 05/17/25 History metoprolol tartrate 50 mg tablet 50 mg PO BID 04/06/22 05/17/25 History multivitamin 1 tablet PO DAILY 04/06/22 05/17/25 History fluticasone furoate 100 1 inh inhalation DAILY 10/20/22 05/17/25 History mcg-vilanterol 25 mcg/dose inhalation powder (Breo Ellipta) albuterol sulfate 90 mcg/actuation 2 inh inhalation Q4-6H PRN 08/26/24 05/17/25 History aerosol inhaler shortness of breath or wheezing fluticasone 250 mcg-salmeterol 50 1 inh inhalation Q12H 08/26/24 05/17/25 History mcg/dose blistr powdr for inhalation (Elenitaxela Inhub) acetaminophen 500 mg capsule 500 mg PO Q4H PRN pain 05/17/25 05/17/25 History amoxicillin 500 mg tablet 500 mg PO Q8H 05/17/25 05/17/25 History apixaban 5 mg tablet (Eliquis) 5 mg PO BID 05/17/25 05/17/25 History chlorhexidine gluconate 0.12 % 15 ml PO Q12H 05/17/25 05/17/25 History mouthwash denosumab 60 mg/mL subcutaneous 60 mg subcut [id number] 05/17/25 05/17/25 History syringe (Prolia) ferrous sulfate 325 mg (65 mg 325 mg PO BID 05/17/25 05/17/25 History iron) tablet mirtazapine 7.5 mg tablet 7.5 mg PO DAILY 05/17/25 05/17/25 History potassium chloride 20 mEq 20 meq PO DAILY 05/17/25 05/17/25 History tablet,extended release(part/cryst) Allergies Allergy/AdvReac Type Severity Reaction Status Date / Time levofloxacin Allergy Intermediate Palpitation Verified 05/17/25 16:16 s Quinolones Allergy Intermediate Palpitation Verified 05/17/25 16:16 s naproxen Allergy Mild SHAKY/DIZZU Verified 05/17/25 16:16 Y orphenadrine Allergy Mild SHAKEY/DIZZ Verified 05/17/25 16:16 Y diclofenac Allergy Unknown Dizziness Verified 05/17/25 16:16 cyclobenzaprine AdvReac Mild SHAKEY/DIZZ Verified 05/17/25 16:16 Y metaxalone AdvReac Mild SHAKY/DIZZY Verified 05/17/25 16:16 rofecoxib AdvReac Mild SHAKEY/DIZZ Verified 05/17/25 16:16 Y misoprostol AdvReac Unknown Dizziness Verified 05/17/25 16:16 Vital Signs Vital Signs - 24 hr 05/17/25 11:57 05/17/25 13:23 05/17/25 13:23 Temperature 37.1 C Pulse Rate 50 L 54 L Respiratory Rate 18 21 H Blood Pressure 173/65 H 184/76 H Pulse Oximetry 100 100 Oxygen Delivery Room Air Room Air Fraction of Inspired Oxygen 05/17/25 14:28 05/17/25 16:00 05/17/25 16:00 Temperature 36.3 C L Pulse Rate 51 L 52 L Respiratory Rate 21 H 16 Blood Pressure 172/66 H 156/73 H Pulse Oximetry 96 95 Oxygen Delivery Room Air Fraction of Inspired Oxygen 05/17/25 16:00 05/17/25 18:00 05/17/25 20:00 Temperature 36.4 C Pulse Rate 52 L 54 L 57 L Respiratory Rate 16 Blood Pressure 135/61 Pulse Oximetry 93 Oxygen Delivery Fraction of Inspired Oxygen 05/17/25 20:00 05/17/25 20:00 05/17/25 21:06 Temperature Pulse Rate 58 L 58 L 50 L Respiratory Rate 16 Blood Pressure Pulse Oximetry 93 Oxygen Delivery Room Air Fraction of Inspired Oxygen 05/17/25 21:59 05/18/25 00:00 05/18/25 00:00 Temperature 36.4 C Pulse Rate 54 L 55 L 56 L Respiratory Rate 16 16 Blood Pressure 131/56 L Pulse Oximetry 92 92 Oxygen Delivery Room Air Fraction of Inspired Oxygen 05/18/25 00:00 05/18/25 02:00 05/18/25 04:00 Temperature Pulse Rate 56 L 52 L 52 L Respiratory Rate 16 Blood Pressure Pulse Oximetry 92 Oxygen Delivery Room Air Fraction of Inspired Oxygen 05/18/25 04:00 05/18/25 04:00 05/18/25 05:40 Temperature 36.4 C Pulse Rate 52 L 53 L 58 L Respiratory Rate 16 Blood Pressure 154/60 H Pulse Oximetry 91 Oxygen Delivery Fraction of Inspired Oxygen 05/18/25 08:00 05/18/25 08:00 05/18/25 08:52 Temperature 36.4 C Pulse Rate 55 L 51 L 51 L Respiratory Rate 22 H 22 H Blood Pressure 161/60 H Pulse Oximetry 95 95 Oxygen Delivery Room Air Fraction of Inspired Oxygen 05/18/25 10:27 Temperature Pulse Rate 51 L Respiratory Rate Blood Pressure Pulse Oximetry 95 Oxygen Delivery Room Air Fraction of Inspired Oxygen 21 Exam Const: General: comfortable HENMT: Mouth: Yes moist mucous membranes Eyes: EOM: EOMs intact bilaterally Neck: Neck: no JVD Resp: Effort & Inspection: normal respiratory effort Auscultation: clear to auscultation bilaterally Cardio: Rate: regular rate Rhythm: regular rhythm Extrem: General: no pedal edema Results Labs and Meds 05/18/25 03:30 05/18/25 03:30 Lab results: Cardiac Enzymes 05/17/25 Range/Units 12:34 AST 36 (14-36) U/L Troponin I < 0.012 (0.000-0.034) ng/mL Coagulation 05/17/25 Range/Units 12:34 PT 18.9 H (11.1-14.7) Seconds APTT 33.1 (22.3-36.8) Seconds CBC 05/17/25 05/18/25 Range/Units 12:34 03:30 WBC 8.7 6.5 (4.5-10.0) K/mm3 RBC 6.35 H 5.94 H (4.2-5.4) M/mm3 Hgb 16.2 H 15.0 (12.0-15.0) g/dL Hct 50.2 H 47.5 H (37.0-47.0) % Plt Count 252 197 (150-375) k/mm3 Lymph # (Auto) 1.23 0.96 (0.9-3.2) K/mm3 [place] # (Auto) 0.7 H 0.6 (0.1-0.6) K/mm3 Eos # (Auto) 0.0 0.1 (0-0.3) K/mm3 Baso # (Auto) 0.1 0.1 (0.0-0.1) K/mm3 Comprehensive Metabolic Panel 05/17/25 05/18/25 Range/Units 12:34 03:30 Sodium 134 L 135 L (137-145) mmol/L Potassium 4.3 3.5 (3.4-5.0) mmol/L Chloride 100 96 L (98-107) mmol/L Carbon Dioxide 26 32 H (22-30) mmol/L BUN 19 H 17 (7-17) mg/dL Creatinine 0.76 0.75 (0.7-1.0) mg/dL Glucose 114 H 93 (65-110) mg/dL Calcium 9.1 8.6 (8.4-10.2) mg/dL AST 36 (14-36) U/L ALT 19 (6-35) U/L Alkaline Phosphatase 105 (38-126) U/L Total Protein 7.4 (6.3-8.2) g/dL Albumin 4.1 3.7 (3.5-5.1) g/dL Intake and Output 05/17/25 05/18/25 05/18/25 23:59 07:59 15:59 Intake Total 200 550 240 Output Total 700 700 Balance -500 -150 240 Intake: Oral 200 550 240 Output: Urine 700 700 Other: # Incontinent Voids 1 Patient Weight 05/18/25 23:59 Weight 52.5 kg
[2025-05-18] MEDS: cefTRIAXone 1 GM in SODIUM CHLORIDE 0.9% IV 50 ML 100 ML IVPB (12:13)
[2025-05-18] MEDS: DOXYCYCLINE IV 100 MG in SODIUM CHLORIDE 0.9% IV 100 ML IVPB ×2 (12:53→20:36)
--- NOTE | 2025-05-18 16:45 | P.PNIM_ITS ---
Progress Note: A&P Assessment and Plan (1) CHF (congestive heart failure): Qualifiers: Heart failure chronicity: acute on chronic Heart failure type: unspecified Qualified Code(s): I50.9 - Heart failure, unspecified Code(s): I50.9 - Heart failure, unspecified Status: Acute Assessment and Plan: About 3 weeks of increasing dyspnea on exertion. Patient initially believed it was related to her asthma. Patient did reach out to her ball machine operator an had a chest x-ray on 05/12 which showed CHF with superimposed probable pneumonia. Patient was instructed to increase her Lasix from 20 daily to 40 in the morning and 20 in the evening. Patient felt that this did not help her much and presented to the ED. - BNP 4700 - most recent echo from September 2019 with EF of 48%, 0 left ventricular size mild global left ventricular systolic dysfunction. Impaired diastolic relaxation grade 1 - currently on: Furosemide 20 mg before directed to increased recently by Cardiology. - monitor I&Os and daily weights - trend renal function -1 time dose furosemide 40 mg IVP given in ED -furosemide 40 mg IVP Q 12 -echo ordered -cardiology consult (2) Hypothyroidism (acquired): Onset Date: ~2004 Code(s): E03.9 - Hypothyroidism, unspecified Status: Chronic Assessment and Plan: Continue home levothyroxine (3) Breast cancer: Qualifiers: Breast location: unspecified site of breast Estrogen receptor status: unspecified Patient sex: female Laterality: unspecified laterality Qualified Code(s): C50.919 - Malignant neoplasm of unspecified site of unspecified female breast Code(s): C50.919 - Malignant neoplasm of unspecified site of unspecified female breast Status: Chronic Assessment and Plan: History of breast cancer -continue letrozole 2.5 mg daily (4) Asthma: Qualifiers: Asthma severity: unspecified severity Asthma persistence: unspecified Asthma complication type: unspecified Qualified Code(s): J45.909 - Unspecified asthma, uncomplicated Code(s): J45.909 - Unspecified asthma, uncomplicated Status: Chronic Assessment and Plan: History of asthma. Home meds fluticasone salmeterol and albuterol inhaler p.r.n. -DuoNebs q.6 p.r.n. Plan 64 y/o female presents with c/o dyspnea on exertion, to further evaluate patient had chest x-ray which showed small persistent effusions with bibasilar atelectatic and/or consolidative changes which could represent pulmonary edema and/or pneumonia. No definite change from May 12 chest x-ray. suspect patient's shortness of breath is multifactorial 2/2 possible pneumonia, will start patient on ceftriaxone and doxycycline, diurese with IV Lasix and monitor, will do cardiac ECHO, will PT/OT evaluate the patient will benefit going to acute rehab. Diet: Heart healthy GI prophylaxis: NA DVT prophylaxis: SCDs lines/drains: PIV Fluids: NA Code status: DNR Subjective Date/time seen: 05/18/25 16:45 Interval history: Dyspnea H&P-Narrative: 64-year-old female with past medical history of breast cancer, asthma, hypothyroidism, HFrEF s/p pacemaker, mitral valve repair presents to the ED on 05/17/2025 with complaints of worsening dyspnea on exertion. Patient states the symptoms have been present for about 3 weeks and initially believed it was her asthma. She states that she is unable to walk more than a few feet without needing to stop and rest. Patient made a follow-up appointment with her manager project management but is unable to get in until the of this month. Patient did reach out to her ball machine operator an had a chest x-ray on 05/12 which showed CHF with superimposed probable pneumonia. Patient was instructed to increase her Lasix from 20 daily to 40 in the morning and 20 in the evening. Patient felt that this did not help her much and presented to the ED. patient denies fevers, cough, chills, abdominal pain, diarrhea, nausea or vomiting. 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 PT 18.9, sodium 134, BUN 19. Creatinine and GFR within normal range. BNP 4700. Troponin negative. Viral panel negative. 64 y/o female presents with c/o dyspnea on exertion, to further evaluate patient had chest x-ray which showed small persistent effusions with bibasilar atelectatic and/or consolidative changes which could represent pulmonary edema and/or pneumonia. No definite change from May 12 chest x-ray. suspect patient's shortness of breath is multifactorial 2/2 possible pneumonia, will start patient on ceftriaxone and doxycycline, diurese with IV Lasix and monitor, will do cardiac ECHO, will PT/OT evaluate the patient will benefit going to acute rehab. Review of Systems Review of Systems: All systems reviewed & are unremarkable except as noted in HPI and below Exam Narrative: Patient appears malnourished Patient is comfortable, NAD HEENT: eyes are clear and none icteric LUNGS: Bilateral fair entry with rales and rhonchi HEART: RR S1S2 ABD: BS+, Soft and nontender Lower extremities: no edema SKIN: nonjaundiced Neuro: grossly intact. Objective Data Vital Signs Vital Signs: Vital Signs - 24 hr 05/17/25 18:00 05/17/25 20:00 05/17/25 20:00 Temperature 36.4 C Pulse Rate 54 L 57 L 58 L Respiratory Rate 16 16 Blood Pressure 135/61 Pulse Oximetry 93 93 Oxygen Delivery Room Air Fraction of Inspired Oxygen 05/17/25 20:00 05/17/25 21:06 05/17/25 21:59 Temperature Pulse Rate 58 L 50 L 54 L Respiratory Rate Blood Pressure Pulse Oximetry Oxygen Delivery Fraction of Inspired Oxygen 05/18/25 00:00 05/18/25 00:00 05/18/25 00:00 Temperature 36.4 C Pulse Rate 55 L 56 L 56 L Respiratory Rate 16 16 Blood Pressure 131/56 L Pulse Oximetry 92 92 Oxygen Delivery Room Air Fraction of Inspired Oxygen 05/18/25 02:00 05/18/25 04:00 05/18/25 04:00 Temperature Pulse Rate 52 L 52 L 52 L Respiratory Rate 16 Blood Pressure Pulse Oximetry 92 Oxygen Delivery Room Air Fraction of Inspired Oxygen 05/18/25 04:00 05/18/25 05:40 05/18/25 08:00 Temperature 36.4 C 36.4 C Pulse Rate 53 L 58 L 55 L Respiratory Rate 16 22 H Blood Pressure 154/60 H 161/60 H Pulse Oximetry 91 95 Oxygen Delivery Fraction of Inspired Oxygen 05/18/25 08:00 05/18/25 08:00 05/18/25 08:52 Temperature Pulse Rate 51 L 59 L 51 L Respiratory Rate 22 H Blood Pressure Pulse Oximetry 95 Oxygen Delivery Room Air Fraction of Inspired Oxygen 05/18/25 10:00 05/18/25 10:27 05/18/25 12:00 Temperature 36.7 C Pulse Rate 53 L 51 L 55 L Respiratory Rate 20 Blood Pressure 149/56 H Pulse Oximetry 95 95 Oxygen Delivery Room Air Fraction of Inspired Oxygen 21 05/18/25 12:00 05/18/25 12:00 05/18/25 14:00 Temperature Pulse Rate 55 L 51 L 54 L Respiratory Rate 20 Blood Pressure Pulse Oximetry 95 Oxygen Delivery Room Air Fraction of Inspired Oxygen 05/18/25 16:00 05/18/25 16:00 Temperature 36.3 C L Pulse Rate 55 L 55 L Respiratory Rate 18 18 Blood Pressure 123/54 L Pulse Oximetry 97 97 Oxygen Delivery Room Air Fraction of Inspired Oxygen Intake/Output Intake/Output: Intake & Output 05/15/25 05/16/25 05/17/25 05/18/25 23:59 23:59 23:59 23:59 Intake Total 200 1180 Output Total 700 1400 Balance -500 -220 Meds/Results Medications: Active Medications Generic Name Dose Route Start Last Admin Trade Name Freq PRN Reason Stop Dose Admin Acetaminophen 500 mg 05/17/25 17:58 Acetaminophen 500 Mg Tablet PO Q4H PRN PAIN RATED 1-3 Albuterol/Ipratropium 3 ml 05/17/25 23:12 Ipratropium 0.5 Mg/Albuterol Sulfate 2.5 Mg (Base) Ampul.Neb 3 Ml INHALATION Q6HRT PRN Shortness Of Breath Or Wheezing Apixaban 5 mg 05/17/25 21:00 05/18/25 08:52 Apixaban 5 Mg Tablet PO 5 mg Q12HR ARINA Administration Chlorhexidine Gluconate 15 ml 05/17/25 21:00 05/18/25 08:55 Chlorhexidine Gluconate 0.12% Oral Rinse 473 Ml Btl (*Bkc) SWISH/SPIT 15 ml Q12H ARINA Administration Ferrous Sulfate 325 mg 05/18/25 09:00 05/18/25 08:52 Ferrous Sulfate 325 Mg Tablet PO 325 mg BID ARINA Administration Furosemide 40 mg 05/17/25 21:00 05/18/25 08:52 Furosemide Inj 40 Mg/4 Ml Vial IV PUSH 40 mg Q12HR ARINA Administration Ceftriaxone Sodium 1 gm/ 50 mls @ 100 mls/hr 05/18/25 11:10 05/18/25 13:00 Sodium Chloride IVPB Infused QAM ARINA Infusion Doxycycline Hyclate 100 mg/ 100 mls @ 100 mls/hr 05/18/25 11:10 05/18/25 14:11 Sodium Chloride IVPB Infused Q12HR ARINA Infusion Letrozole 2.5 mg 05/18/25 09:00 05/18/25 08:52 Letrozole (*Chemo) 2.5 Mg Tablet PO 2.5 mg DAILY ARINA Administration Levothyroxine Sodium 50 mcg 05/18/25 06:30 05/18/25 05:36 Levothyroxine Sodium 50 Mcg Tablet PO 50 mcg DAILY@0630 ARINA Administration Metoprolol Tartrate 50 mg 05/17/25 21:00 05/18/25 08:52 Metoprolol Tartrate 50 Mg Tab PO 50 mg Q12HR ARINA Administration Mirtazapine 7.5 mg 05/17/25 21:00 05/17/25 21:07 Mirtazapine 7.5 Mg Tablet PO 7.5 mg HS ARINA Administration Multivitamins Therapeutic 1 tablet 05/18/25 09:00 05/18/25 08:52 Multivitamins Therapeutic Tab (*Bkc) PO 1 tablet DAILY ARINA Administration Potassium Chloride 20 meq 05/18/25 09:00 05/18/25 08:52 Potassium Chloride 20 Meq Packet (For Liquid) PO 20 meq DAILY ARINA Administration Vitamin D 50 mcg 05/18/25 09:00 05/18/25 08:52 Cholecalciferol (Vitamin D3) 25 Mcg (1,000 Units) Tablet PO 50 mcg DAILY ARINA Administration Radiology Results: ITS Impressions Chest X-Ray 05/17/25 13:02 IMPRESSION: 1. Small persistent effusions with bibasilar atelectatic and/or consolidative changes which could represent pulmonary edema and/or pneumonia. No definite change from May 12 chest x-ray. Labs Labs: Laboratory Results - last 24 hr 05/18/25 03:30 WBC 6.5 RBC 5.94 H Hgb 15.0 Hct 47.5 H MCV 80.0 MCH 25.3 L MCHC 31.6 L RDW 19.6 H Plt Count 197 MPV 11.3 H Immature Gran % (Auto) 0.5 Neut % (Auto) 74.1 H Lymph % (Auto) 14.8 L [place] % (Auto) 8.6 H Eos % (Auto) 0.9 Baso % (Auto) 1.1 Lymph # (Auto) 0.96 [place] # (Auto) 0.6 Eos # (Auto) 0.1 Baso # (Auto) 0.1 Abs Immat Gran (auto) 0.03 Absolute Neuts (auto) 4.8 Absolute Nucleated RBC 0.000 Nucleated RBC % 0.0 Sodium 135 L Potassium 3.5 Chloride 96 L Carbon Dioxide 32 H Anion Gap 7 BUN 17 Creatinine 0.75 Estim Creat Clear Calc 56 Estimated GFR > 60 Glucose 93 Calcium 8.6 Phosphorus 3.8 NT-Pro-B Natriuret Pep 4300 H Albumin 3.7 Quality VTE Prophylaxis VTE prophylaxis: mechanical ordered and pharmacologic ordered
[2025-05-18] MEDS: FLUTICASONE/SALMETEROL 115-21 MCG INHALER 1 PUFF 2 PUFF INHALATION (19:52)
[2025-05-18] MEDS: MIRTAZAPINE 7.5 MG TABLET PO (20:37)
[2025-05-19] VITALS (17 sets, daily range): BP systolic 114–163; BP diastolic 48–74; PULSE 45–94; RESP 16–24; TEMP 36.3–36.6; O2SAT 92–99
[2025-05-19] MEDS: LEVOTHYROXINE SODIUM 50 MCG TABLET PO (06:07)
[2025-05-19] MEDS: FLUTICASONE/SALMETEROL 115-21 MCG INHALER 1 PUFF 2 PUFF INHALATION ×2 (07:27→21:27)
[2025-05-19] MEDS: POTASSIUM CHLORIDE 20 MEQ PACKET (FOR LIQUID) PO (08:43)
[2025-05-19] MEDS: MULTIVITAMINS THERAPEUTIC TAB (*BKC) 1 TABLET PO (08:44)
[2025-05-19] MEDS: FERROUS SULFATE 325 MG TABLET PO ×2 (08:44→16:29)
[2025-05-19] MEDS: METOPROLOL TARTRATE 50 MG TAB PO ×2 (08:44→20:29)
[2025-05-19] MEDS: LETROZOLE (*CHEMO) 2.5 MG TABLET PO (08:45)
[2025-05-19] MEDS: APIXABAN 5 MG TABLET PO ×2 (08:45→20:29)
[2025-05-19] MEDS: CHOLECALCIFEROL (VITAMIN D3) 25 MCG (1,000 UNITS) TABLET 50 MCG PO (08:45)
[2025-05-19] MEDS: ASPIRIN 81 MG ENTERIC TABLET PO (08:46)
[2025-05-19] MEDS: cefTRIAXone 1 GM in SODIUM CHLORIDE 0.9% IV 50 ML 100 ML IVPB (08:46)
[2025-05-19] MEDS: FUROSEMIDE INJ 40 MG/4 ML VIAL IV PUSH (08:48)
[2025-05-19] MEDS: DOXYCYCLINE IV 100 MG in SODIUM CHLORIDE 0.9% IV 100 ML IVPB ×2 (08:49→20:26)
[2025-05-19] MEDS: CHLORHEXIDINE GLUCONATE 0.12% ORAL RINSE 473 ML BTL (*BKC) 15 ML SWISH/SPIT ×2 (08:50→20:31)
[2025-05-19 08:54] LABS: Hematocrit 49.0 % (37.0-47.0); Hemoglobin 15.2 g/dL (12.0-15.0); Immature Platelet Fraction Pct 7.1 % (0.9-11.2); Mean Corpuscular HGB Conc 31.0 g/dl (32-36); Mean Corpuscular Hemoglobin 25.5 pg (26-34); Mean Corpuscular Volume 82.2 fl (80-100); Platelet Count Result 184 k/mm3 (150-375); Red Blood Count 5.96 M/mm3 (4.2-5.4); White Blood Count 6.4 K/mm3 (4.5-10.0)
[2025-05-19 09:20] LABS: Anion Gap 8 mmol/L (4-12); Blood Urea Nitrogen 19 mg/dL (7-17); Calcium 8.6 mg/dL (8.4-10.2); Carbon Dioxide 34 mmol/L (22-30); Chloride 96 mmol/L (98-107); Estimated CRCL calculation 50 ml/min; Estimated Glomerular Filt Rate > 60; Glucose 119 mg/dL (65-110); Magnesium 1.8 mg/dL (1.6-2.3); Potassium 3.8 mmol/L (3.4-5.0); Sodium 138 mmol/L (137-145)
[2025-05-19] MEDS: ACETAMINOPHEN 500 MG TABLET PO ×2 (10:36→22:48)
--- NOTE | 2025-05-19 13:33 | PM.PNCARD ---
Progress Note: A&P Assessment and Plan (1) CHF (congestive heart failure): Qualifiers: Heart failure chronicity: acute on chronic Heart failure type: unspecified Qualified Code(s): I50.9 - Heart failure, unspecified Code(s): I50.9 - Heart failure, unspecified Status: Acute (2) Complete heart block: Code(s): I44.2 - Atrioventricular block, complete Status: Acute (3) Mitral valve regurgitation: Code(s): I34.0 - Nonrheumatic mitral (valve) insufficiency Status: Acute Plan 64-year-old woman with chronic systolic heart failure likely in setting of chronic RV pacing, complete heart block status post dual chamber permanent pacemaker with high RV pacing percentage for which she was upgraded to a Bi V pacemaker with recent infection leading to device removal and reimplantation with a leadless pacemaker in 12/2024, mitral valve regurgitation status post repair, history of breast cancer, hypothyroidism, asthma presented with worsening shortness of breath Acute on chronic systolic heart failure -shift to furosemide 40mg p.o. b.i.d -she will need to see her EP physician in clinic for consideration of Bi V pacemaker Complete heart block status post dual-chamber pacemaker with high RV pacing percentage for which she upgraded to Bi V pacemaker with recent infection leading to device removal reimplantation with leadless pacemaker -normal function device -follow-up in the EP Clinic Mitral valve regurgitation status post repair -stable Subjective Date/time seen: 05/19/25 13:33 Interval history: Cardiology follow-up visit for CHF Date of service 05/19/2025: Feeling better. Breathing and swelling are improving. Review of Systems Cardiovascular: Cardiovascular: Reports as per HPI Respiratory: Respiratory: Reports as per HPI Exam Const: General: comfortable HENMT: Mouth: Yes moist mucous membranes Eyes: EOM: EOMs intact bilaterally Neck: Neck: no JVD Resp: Effort & Inspection: normal respiratory effort Auscultation: clear to auscultation bilaterally Cardio: Rate: regular rate Rhythm: regular rhythm Extrem: General: no pedal edema Objective Data Vital Signs Vital Signs: Vital Signs - 24 hr 05/18/25 14:00 05/18/25 16:00 05/18/25 16:00 Temperature 36.3 C L Pulse Rate 54 L 55 L 55 L Respiratory Rate 18 18 Blood Pressure 123/54 L Pulse Oximetry 97 97 Oxygen Delivery Room Air Fraction of Inspired Oxygen 05/18/25 16:00 05/18/25 18:00 05/18/25 19:54 Temperature Pulse Rate 54 L 56 L 56 L Respiratory Rate 20 Blood Pressure Pulse Oximetry Oxygen Delivery Fraction of Inspired Oxygen 05/18/25 19:58 05/18/25 20:00 05/18/25 20:37 Temperature 36.2 C L Pulse Rate 56 L 97 48 L Respiratory Rate 20 22 H Blood Pressure 124/54 L Pulse Oximetry 97 97 Oxygen Delivery Room Air Fraction of Inspired Oxygen 21 05/18/25 22:00 05/18/25 23:23 05/18/25 23:54 Temperature 36.8 C Pulse Rate 53 L 53 L 54 L Respiratory Rate 16 Blood Pressure 142/59 H Pulse Oximetry 94 97 Oxygen Delivery Room Air Fraction of Inspired Oxygen 05/19/25 00:00 05/19/25 02:00 05/19/25 03:52 Temperature Pulse Rate 49 L 53 L 50 L Respiratory Rate Blood Pressure Pulse Oximetry 97 Oxygen Delivery Room Air Fraction of Inspired Oxygen 05/19/25 04:00 05/19/25 04:00 05/19/25 06:00 Temperature 36.4 C Pulse Rate 54 L 54 L 49 L Respiratory Rate 18 Blood Pressure 163/62 H Pulse Oximetry 97 Oxygen Delivery Fraction of Inspired Oxygen 05/19/25 07:28 05/19/25 07:52 05/19/25 08:00 Temperature 36.3 C L Pulse Rate 50 L 52 L Respiratory Rate 20 16 Blood Pressure 138/72 Pulse Oximetry 93 Oxygen Delivery Room Air Fraction of Inspired Oxygen 05/19/25 08:00 05/19/25 08:44 05/19/25 10:00 Temperature Pulse Rate 45 L 54 L 55 L Respiratory Rate Blood Pressure Pulse Oximetry Oxygen Delivery Fraction of Inspired Oxygen 05/19/25 11:30 Temperature 36.4 C L Pulse Rate 56 L Respiratory Rate 16 Blood Pressure 114/54 L Pulse Oximetry 96 Oxygen Delivery Fraction of Inspired Oxygen Intake/Output Intake/Output: Intake & Output 05/16/25 05/17/25 05/18/25 05/19/25 23:59 23:59 23:59 23:59 Intake Total 200 1520 360 Output Total 700 1800 250 Balance -500 -280 110 Meds/Results Medications: Active Medications Generic Name Dose Route Start Last Admin Trade Name Freq PRN Reason Stop Dose Admin Acetaminophen 500 mg 05/17/25 17:58 05/19/25 10:36 Acetaminophen 500 Mg Tablet PO 500 mg Q4H PRN Administration PAIN RATED 1-3 Albuterol 2 puff 05/18/25 17:06 Albuterol Sulfate (*Sp) Aerosol 1 Puff INHALATION Q4-6H PRN Shortness Of Breath Or Wheezing Albuterol/Ipratropium 3 ml 05/17/25 23:12 Ipratropium 0.5 Mg/Albuterol Sulfate 2.5 Mg (Base) Ampul.Neb 3 Ml INHALATION Q6HRT PRN Shortness Of Breath Or Wheezing Apixaban 5 mg 05/17/25 21:00 05/19/25 08:45 Apixaban 5 Mg Tablet PO 5 mg Q12HR ARINA Administration Aspirin 81 mg 05/19/25 09:00 05/19/25 08:46 Aspirin 81 Mg Enteric Tablet PO 81 mg DAILY ARINA Administration Chlorhexidine Gluconate 15 ml 05/17/25 21:00 05/19/25 08:50 Chlorhexidine Gluconate 0.12% Oral Rinse 473 Ml Btl (*Bkc) SWISH/SPIT 15 ml Q12H ARINA Administration Ferrous Sulfate 325 mg 05/18/25 09:00 05/19/25 08:44 Ferrous Sulfate 325 Mg Tablet PO 325 mg BID ARINA Administration Furosemide 40 mg 05/17/25 21:00 05/19/25 08:48 Furosemide Inj 40 Mg/4 Ml Vial IV PUSH 40 mg Q12HR ARINA Administration Ceftriaxone Sodium 1 gm/ 50 mls @ 100 mls/hr 05/18/25 11:10 05/19/25 08:46 Sodium Chloride IVPB 100 mls/hr QAM ARINA Administration Doxycycline Hyclate 100 mg/ 100 mls @ 100 mls/hr 05/18/25 11:10 05/19/25 08:49 Sodium Chloride IVPB 100 mls/hr Q12HR ARINA Administration Letrozole 2.5 mg 05/18/25 09:00 05/19/25 08:45 Letrozole (*Chemo) 2.5 Mg Tablet PO 2.5 mg DAILY ARINA Administration Levothyroxine Sodium 50 mcg 05/18/25 06:30 05/19/25 06:07 Levothyroxine Sodium 50 Mcg Tablet PO 50 mcg DAILY@0630 ARINA Administration Metoprolol Tartrate 50 mg 05/17/25 21:00 05/19/25 08:44 Metoprolol Tartrate 50 Mg Tab PO 50 mg Q12HR ARINA Administration Mirtazapine 7.5 mg 05/17/25 21:00 05/18/25 20:37 Mirtazapine 7.5 Mg Tablet PO 7.5 mg HS ARINA Administration Multivitamins Therapeutic 1 tablet 05/18/25 09:00 05/19/25 08:44 Multivitamins Therapeutic Tab (*Bkc) PO 1 tablet DAILY ARINA Administration Potassium Chloride 20 meq 05/18/25 09:00 05/19/25 08:43 Potassium Chloride 20 Meq Packet (For Liquid) PO 20 meq DAILY ARINA Administration Fluticasone/Salmeterol 2 puff 05/18/25 20:00 05/19/25 07:27 Fluticasone/Salmeterol 115-21 Mcg Inhaler 1 Puff INHALATION 2 puff Q12HRT ARINA Administration Vitamin D 50 mcg 05/18/25 09:00 05/19/25 08:45 Cholecalciferol (Vitamin D3) 25 Mcg (1,000 Units) Tablet PO 50 mcg DAILY ARINA Administration Radiology Results: ITS Impressions Chest X-Ray 05/17/25 13:02 IMPRESSION: 1. Small persistent effusions with bibasilar atelectatic and/or consolidative changes which could represent pulmonary edema and/or pneumonia. No definite change from May 12 chest x-ray. Labs Labs: Laboratory Results - last 24 hr 05/19/25 08:40 WBC 6.4 RBC 5.96 H Hgb 15.2 H Hct 49.0 H MCV 82.2 MCH 25.5 L MCHC 31.0 L RDW 19.8 H Plt Count 184 MPV 11.9 H % Immature Plt Fraction 7.1 Sodium 138 Potassium 3.8 Chloride 96 L Carbon Dioxide 34 H Anion Gap 8 BUN 19 H Creatinine 0.85 Estim Creat Clear Calc 50 Estimated GFR > 60 Glucose 119 H Calcium 8.6 Magnesium 1.8 Quality VTE Prophylaxis VTE prophylaxis: mechanical ordered and pharmacologic ordered
--- NOTE | 2025-05-19 13:39 | P.PNIM_ITS ---
Progress Note: A&P Assessment and Plan (1) CHF (congestive heart failure): Qualifiers: Heart failure chronicity: acute on chronic Heart failure type: unspecified Qualified Code(s): I50.9 - Heart failure, unspecified Code(s): I50.9 - Heart failure, unspecified Status: Acute Assessment and Plan: About 3 weeks of increasing dyspnea on exertion. Patient initially believed it was related to her asthma. Patient did reach out to her senior javascript engineer an had a chest x-ray on 05/12 which showed CHF with superimposed probable pneumonia. Patient was instructed to increase her Lasix from 20 daily to 40 in the morning and 20 in the evening. Patient felt that this did not help her much and presented to the ED. - BNP 4700 - most recent echo from September 2019 with EF of 48%, 0 left ventricular size mild global left ventricular systolic dysfunction. Impaired diastolic relaxation grade 1 - currently on: Furosemide 20 mg before directed to increased recently by Cardiology. - monitor I&Os and daily weights - trend renal function -1 time dose furosemide 40 mg IVP given in ED -furosemide 40 mg IVP Q 12 -echo ordered -cardiology consult (2) Hypothyroidism (acquired): Onset Date: ~2004 Code(s): E03.9 - Hypothyroidism, unspecified Status: Chronic Assessment and Plan: Continue home levothyroxine (3) Breast cancer: Qualifiers: Breast location: unspecified site of breast Estrogen receptor status: unspecified Patient sex: female Laterality: unspecified laterality Qualified Code(s): C50.919 - Malignant neoplasm of unspecified site of unspecified female breast Code(s): C50.919 - Malignant neoplasm of unspecified site of unspecified female breast Status: Chronic Assessment and Plan: History of breast cancer -continue letrozole 2.5 mg daily (4) Asthma: Qualifiers: Asthma severity: unspecified severity Asthma persistence: unspecified Asthma complication type: unspecified Qualified Code(s): J45.909 - Unspecified asthma, uncomplicated Code(s): J45.909 - Unspecified asthma, uncomplicated Status: Chronic Assessment and Plan: History of asthma. Home meds fluticasone salmeterol and albuterol inhaler p.r.n. -DuoNebs q.6 p.r.n. Plan 64 y/o female presents with c/o dyspnea on exertion, to further evaluate patient had chest x-ray which showed small persistent effusions with bibasilar atelectatic and/or consolidative changes which could represent pulmonary edema and/or pneumonia. No definite change from May 12 chest x-ray. suspect patient's shortness of breath is multifactorial 2/2 possible pneumonia, will start patient on ceftriaxone and doxycycline, diurese with IV Lasix and monitor, will do cardiac ECHO, will PT/OT evaluate the patient will benefit going to acute rehab. Today patient stats she is feeling somewhat better and as short of breath her cardiac echo showed mildly reduce EF of 45-50% most likely patient has acute on chronic systolic CHF. patien is also found to have pneumonia and being treated for ceftriaxone and doxycycline, will monitor. Diet: Heart healthy GI prophylaxis: NA DVT prophylaxis: SCDs lines/drains: PIV Fluids: NA Code status: DNR Subjective Date/time seen: 05/19/25 13:39 Interval history: Dyspnea H&P-Narrative: 64-year-old female with past medical history of breast cancer, asthma, hypothyroidism, HFrEF s/p pacemaker, mitral valve repair presents to the ED on 05/17/2025 with complaints of worsening dyspnea on exertion. Patient states the symptoms have been present for about 3 weeks and initially believed it was her asthma. She states that she is unable to walk more than a few feet without needing to stop and rest. Patient made a follow-up appointment with her roof service technician but is unable to get in until the of this month. Patient did reach out to her senior javascript engineer an had a chest x-ray on 05/12 which showed CHF with superimposed probable pneumonia. Patient was instructed to increase her Lasix from 20 daily to 40 in the morning and 20 in the evening. Patient felt that this did not help her much and presented to the ED. patient denies fevers, cough, chills, abdominal pain, diarrhea, nausea or vomiting. 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 PT 18.9, sodium 134, BUN 19. Creatinine and GFR within normal range. BNP 4700. Troponin negative. Viral panel negative. 64 y/o female presents with c/o dyspnea on exertion, to further evaluate patient had chest x-ray which showed small persistent effusions with bibasilar atelectatic and/or consolidative changes which could represent pulmonary edema and/or pneumonia. No definite change from May 12 chest x-ray. suspect patient's shortness of breath is multifactorial 2/2 possible pneumonia, will start patient on ceftriaxone and doxycycline, diurese with IV Lasix and monitor, will do cardiac ECHO, will PT/OT evaluate the patient will benefit going to acute rehab. Today patient stats she is feeling somewhat better and as short of breath her cardiac echo showed mildly reduce EF of 45-50% most likely patient has acute on chronic systolic CHF. patien is also found to have pneumonia and being treated for ceftriaxone and doxycycline, will monitor. Review of Systems Review of Systems: All systems reviewed & are unremarkable except as noted in HPI and below Exam Narrative: Patient appears malnourished Patient is comfortable, NAD HEENT: eyes are clear and none icteric LUNGS: Bilateral fair entry with rales and rhonchi HEART: RR S1S2 ABD: BS+, Soft and nontender Lower extremities: no edema SKIN: nonjaundiced Neuro: grossly intact. Objective Data Vital Signs Vital Signs: Vital Signs - 24 hr 05/18/25 14:00 05/18/25 16:00 05/18/25 16:00 Temperature 36.3 C L Pulse Rate 54 L 55 L 55 L Respiratory Rate 18 18 Blood Pressure 123/54 L Pulse Oximetry 97 97 Oxygen Delivery Room Air Fraction of Inspired Oxygen 05/18/25 16:00 05/18/25 18:00 05/18/25 19:54 Temperature Pulse Rate 54 L 56 L 56 L Respiratory Rate 20 Blood Pressure Pulse Oximetry Oxygen Delivery Fraction of Inspired Oxygen 05/18/25 19:58 05/18/25 20:00 05/18/25 20:37 Temperature 36.2 C L Pulse Rate 56 L 97 48 L Respiratory Rate 20 22 H Blood Pressure 124/54 L Pulse Oximetry 97 97 Oxygen Delivery Room Air Fraction of Inspired Oxygen 21 05/18/25 22:00 05/18/25 23:23 05/18/25 23:54 Temperature 36.8 C Pulse Rate 53 L 53 L 54 L Respiratory Rate 16 Blood Pressure 142/59 H Pulse Oximetry 94 97 Oxygen Delivery Room Air Fraction of Inspired Oxygen 05/19/25 00:00 05/19/25 02:00 05/19/25 03:52 Temperature Pulse Rate 49 L 53 L 50 L Respiratory Rate Blood Pressure Pulse Oximetry 97 Oxygen Delivery Room Air Fraction of Inspired Oxygen 05/19/25 04:00 05/19/25 04:00 05/19/25 06:00 Temperature 36.4 C Pulse Rate 54 L 54 L 49 L Respiratory Rate 18 Blood Pressure 163/62 H Pulse Oximetry 97 Oxygen Delivery Fraction of Inspired Oxygen 05/19/25 07:28 05/19/25 07:52 05/19/25 08:00 Temperature 36.3 C L Pulse Rate 50 L 52 L Respiratory Rate 20 16 Blood Pressure 138/72 Pulse Oximetry 93 Oxygen Delivery Room Air Fraction of Inspired Oxygen 05/19/25 08:00 05/19/25 08:44 05/19/25 10:00 Temperature Pulse Rate 45 L 54 L 55 L Respiratory Rate Blood Pressure Pulse Oximetry Oxygen Delivery Fraction of Inspired Oxygen 05/19/25 11:30 Temperature 36.4 C L Pulse Rate 56 L Respiratory Rate 16 Blood Pressure 114/54 L Pulse Oximetry 96 Oxygen Delivery Fraction of Inspired Oxygen Intake/Output Intake/Output: Intake & Output 05/16/25 05/17/25 05/18/25 05/19/25 23:59 23:59 23:59 23:59 Intake Total 200 1520 360 Output Total 700 1800 250 Balance -500 -280 110 Meds/Results Medications: Active Medications Generic Name Dose Route Start Last Admin Trade Name Freq PRN Reason Stop Dose Admin Acetaminophen 500 mg 05/17/25 17:58 05/19/25 10:36 Acetaminophen 500 Mg Tablet PO 500 mg Q4H PRN Administration PAIN RATED 1-3 Albuterol 2 puff 05/18/25 17:06 Albuterol Sulfate (*Sp) Aerosol 1 Puff INHALATION Q4-6H PRN Shortness Of Breath Or Wheezing Albuterol/Ipratropium 3 ml 05/17/25 23:12 Ipratropium 0.5 Mg/Albuterol Sulfate 2.5 Mg (Base) Ampul.Neb 3 Ml INHALATION Q6HRT PRN Shortness Of Breath Or Wheezing Apixaban 5 mg 05/17/25 21:00 05/19/25 08:45 Apixaban 5 Mg Tablet PO 5 mg Q12HR ARINA Administration Aspirin 81 mg 05/19/25 09:00 05/19/25 08:46 Aspirin 81 Mg Enteric Tablet PO 81 mg DAILY ARINA Administration Chlorhexidine Gluconate 15 ml 05/17/25 21:00 05/19/25 08:50 Chlorhexidine Gluconate 0.12% Oral Rinse 473 Ml Btl (*Bkc) SWISH/SPIT 15 ml Q12H ARINA Administration Ferrous Sulfate 325 mg 05/18/25 09:00 05/19/25 08:44 Ferrous Sulfate 325 Mg Tablet PO 325 mg BID ARINA Administration Furosemide 40 mg 05/17/25 21:00 05/19/25 08:48 Furosemide Inj 40 Mg/4 Ml Vial IV PUSH 40 mg Q12HR ARINA Administration Ceftriaxone Sodium 1 gm/ 50 mls @ 100 mls/hr 05/18/25 11:10 05/19/25 08:46 Sodium Chloride IVPB 100 mls/hr QAM ARINA Administration Doxycycline Hyclate 100 mg/ 100 mls @ 100 mls/hr 05/18/25 11:10 05/19/25 08:49 Sodium Chloride IVPB 100 mls/hr Q12HR ARINA Administration Letrozole 2.5 mg 05/18/25 09:00 05/19/25 08:45 Letrozole (*Chemo) 2.5 Mg Tablet PO 2.5 mg DAILY ARINA Administration Levothyroxine Sodium 50 mcg 05/18/25 06:30 05/19/25 06:07 Levothyroxine Sodium 50 Mcg Tablet PO 50 mcg DAILY@0630 ARINA Administration Metoprolol Tartrate 50 mg 05/17/25 21:00 05/19/25 08:44 Metoprolol Tartrate 50 Mg Tab PO 50 mg Q12HR ARINA Administration Mirtazapine 7.5 mg 05/17/25 21:00 05/18/25 20:37 Mirtazapine 7.5 Mg Tablet PO 7.5 mg HS ARINA Administration Multivitamins Therapeutic 1 tablet 05/18/25 09:00 05/19/25 08:44 Multivitamins Therapeutic Tab (*Bkc) PO 1 tablet DAILY ARINA Administration Potassium Chloride 20 meq 05/18/25 09:00 05/19/25 08:43 Potassium Chloride 20 Meq Packet (For Liquid) PO 20 meq DAILY ARINA Administration Fluticasone/Salmeterol 2 puff 05/18/25 20:00 05/19/25 07:27 Fluticasone/Salmeterol 115-21 Mcg Inhaler 1 Puff INHALATION 2 puff Q12HRT ARINA Administration Vitamin D 50 mcg 05/18/25 09:00 05/19/25 08:45 Cholecalciferol (Vitamin D3) 25 Mcg (1,000 Units) Tablet PO 50 mcg DAILY ARINA Administration Radiology Results: ITS Impressions Chest X-Ray 05/17/25 13:02 IMPRESSION: 1. Small persistent effusions with bibasilar atelectatic and/or consolidative changes which could represent pulmonary edema and/or pneumonia. No definite change from May 12 chest x-ray. Labs Labs: Laboratory Results - last 24 hr 05/19/25 08:40 WBC 6.4 RBC 5.96 H Hgb 15.2 H Hct 49.0 H MCV 82.2 MCH 25.5 L MCHC 31.0 L RDW 19.8 H Plt Count 184 MPV 11.9 H % Immature Plt Fraction 7.1 Sodium 138 Potassium 3.8 Chloride 96 L Carbon Dioxide 34 H Anion Gap 8 BUN 19 H Creatinine 0.85 Estim Creat Clear Calc 50 Estimated GFR > 60 Glucose 119 H Calcium 8.6 Magnesium 1.8 Quality VTE Prophylaxis VTE prophylaxis: mechanical ordered and pharmacologic ordered
--- NOTE | 2025-05-19 16:05 | PC.NURSE ---
This patient, Mariam Parish, was transferred to room 241 on 05/19/25 at 1605. Personal belongings sent with patient. Report given to [Lyssa ]. Appropriate documentation sent with patient. Patients sister DJ notified of transfer. Patient and sister verbalize understanding of need for transfer. Belongings with patient.
--- NOTE | 2025-05-19 16:20 | PC.NURSE ---
Received from [facility] via wheelchair. Voiding without difficulty.
[2025-05-19] MEDS: FUROSEMIDE 40 MG TABLET PO (16:29)
[2025-05-19] MEDS: MIRTAZAPINE 7.5 MG TABLET PO (20:30)
[2025-05-20] VITALS (8 sets, daily range): BP systolic 111–144; BP diastolic 38–52; PULSE 50–84; RESP 16–20; TEMP 36.6–37.1; O2SAT 94–98
[2025-05-20 05:02] LABS: Hematocrit 49.0 % (37.0-47.0); Hemoglobin 15.2 g/dL (12.0-15.0); Immature Platelet Fraction Pct 7.8 % (0.9-11.2); Mean Corpuscular HGB Conc 31.0 g/dl (32-36); Mean Corpuscular Hemoglobin 25.1 pg (26-34); Mean Corpuscular Volume 81.0 fl (80-100); Platelet Count Result 166 k/mm3 (150-375); Red Blood Count 6.05 M/mm3 (4.2-5.4); White Blood Count 5.6 K/mm3 (4.5-10.0)
[2025-05-20 05:16] LABS: Anion Gap 5 mmol/L (4-12); Blood Urea Nitrogen 23 mg/dL (7-17); Calcium 8.1 mg/dL (8.4-10.2); Carbon Dioxide 32 mmol/L (22-30); Chloride 99 mmol/L (98-107); Estimated CRCL calculation 46 ml/min; Estimated Glomerular Filt Rate > 60; Glucose 91 mg/dL (65-110); Magnesium 1.8 mg/dL (1.6-2.3); Potassium 4.1 mmol/L (3.4-5.0); Sodium 136 mmol/L (137-145)
[2025-05-20] MEDS: ACETAMINOPHEN 500 MG TABLET PO (05:36)
[2025-05-20] MEDS: LEVOTHYROXINE SODIUM 50 MCG TABLET PO (05:37)
--- NOTE | 2025-05-20 07:19 | P.PNIM_ITS ---
Progress Note: A&P Assessment and Plan (1) CHF (congestive heart failure): Qualifiers: Heart failure chronicity: acute on chronic Heart failure type: unspecified Qualified Code(s): I50.9 - Heart failure, unspecified Code(s): I50.9 - Heart failure, unspecified Status: Acute Assessment and Plan: About 3 weeks of increasing dyspnea on exertion. Patient initially believed it was related to her asthma. Patient did reach out to her psychiatry adult physician an had a chest x-ray on 05/12 which showed CHF with superimposed probable pneumonia. Patient was instructed to increase her Lasix from 20 daily to 40 in the morning and 20 in the evening. Patient felt that this did not help her much and presented to the ED. - BNP 4700 - echo with EF 45-50%, mild aortic stenosis - s/p IV diuresis - cardio following :Likely related to chronic RV pacing and underlying cardiac history. Transitioned to furosemide 40 mg PO BID for volume management -Monitor response to diuresis (daily weights, I/Os, electrolytes, renal function) -Will require outpatient follow-up with electrophysiology (EP) for consideration of BiV pacemaker re-implantation (2) Pneumonia: Code(s): J18.9 - Pneumonia, unspecified organism Status: Acute Assessment and Plan: - CXR 05/17 with small persistent effusions with bibasilar atelectasis and or consolidative changes - afebrile, no leukocytosis - started on Rocephin and doxycycline - follow-up blood cultures (3) Hypothyroidism (acquired): Onset Date: ~2004 Code(s): E03.9 - Hypothyroidism, unspecified Status: Chronic Assessment and Plan: -Continue home levothyroxine (4) Breast cancer: Qualifiers: Breast location: unspecified site of breast Estrogen receptor status: unspecified Laterality: unspecified laterality Patient sex: female Qualified Code(s): C50.919 - Malignant neoplasm of unspecified site of unspecified female breast Code(s): C50.919 - Malignant neoplasm of unspecified site of unspecified female breast Status: Chronic Assessment and Plan: -continue letrozole 2.5 mg daily (5) Asthma: Qualifiers: Asthma complication type: unspecified Asthma persistence: unspecified Asthma severity: unspecified severity Qualified Code(s): J45.909 - Unspecified asthma, uncomplicated Code(s): J45.909 - Unspecified asthma, uncomplicated Status: Chronic Assessment and Plan: -Home meds fluticasone salmeterol and albuterol inhaler p.r.n. -Ashanti q.6 p.r.n. Plan DVT prophylaxis: Eliqujamshid Code status: DNR Dispo: likely home tomorrow Subjective Date/time seen: 05/20/25 07:19 Interval history: Patient seen and examined. Denied chest pain. Shortness of breath improving. Nursing noted swelling of LUE. Patient states this has been present since she was diagnosed with a blood clot, but may be slightly worse. Asked nursing to change IV site and will obtain LUE venous doppler. Review of Systems Review of Systems: All systems reviewed & are unremarkable except as noted in HPI and below Exam Narrative: General: NAD, frail Eyes: EOMI ENT: neck supple Cardiovascular: Regular rate and rhythm Respiratory: Clear to auscultation, respirations even and unlabored on RA Gastrointestinal: Soft, non tender Genitourinary: no suprapubic tenderness Musculoskeletal: LUE with mild edema, worse in the L forearm Skin: warm, dry Neuro: Alert. Psych: Mood appropriate Objective Data Vital Signs Vital Signs: Vital Signs - 24 hr 05/19/25 07:28 05/19/25 07:52 05/19/25 08:00 Temperature 97.4 F L Pulse Rate 50 L 52 L Respiratory Rate 20 16 Blood Pressure 138/72 Pulse Oximetry 93 Oxygen Delivery Room Air 05/19/25 08:00 05/19/25 08:44 05/19/25 10:00 Temperature Pulse Rate 45 L 54 L 55 L Respiratory Rate Blood Pressure Pulse Oximetry Oxygen Delivery 05/19/25 11:30 05/19/25 15:55 05/19/25 16:20 Temperature 97.5 F L 97.4 F L 97.4 F L Pulse Rate 56 L 94 53 L Respiratory Rate 16 24 H 16 Blood Pressure 114/54 L 140/74 153/59 H Pulse Oximetry 96 92 99 Oxygen Delivery 05/19/25 20:29 05/19/25 20:32 05/19/25 21:27 Temperature 97.8 F Pulse Rate 54 L 80 Respiratory Rate 20 Blood Pressure 121/48 L Pulse Oximetry 93 96 Oxygen Delivery Room Air 05/19/25 21:28 05/20/25 04:59 Temperature 98.0 F Pulse Rate 53 L 55 L Respiratory Rate 20 20 Blood Pressure 135/51 L Pulse Oximetry 95 Oxygen Delivery Intake/Output Intake/Output: Intake & Output 05/17/25 05/18/25 05/19/25 05/20/25 23:59 23:59 23:59 23:59 Intake Total 200 1520 1110 300 Output Total 700 1800 1050 Balance -500 -280 60 300 Meds/Results Medications: Active Medications Generic Name Dose Route Start Last Admin Trade Name Freq PRN Reason Stop Dose Admin Acetaminophen 500 mg 05/17/25 17:58 05/20/25 05:36 Acetaminophen 500 Mg Tablet PO 500 mg Q4H PRN Administration PAIN RATED 1-3 Albuterol 2 puff 05/18/25 17:06 Albuterol Sulfate (*Sp) Aerosol 1 Puff INHALATION Q4-6H PRN Shortness Of Breath Or Wheezing Albuterol/Ipratropium 3 ml 05/17/25 23:12 Ipratropium 0.5 Mg/Albuterol Sulfate 2.5 Mg (Base) Ampul.Neb 3 Ml INHALATION Q6HRT PRN Shortness Of Breath Or Wheezing Apixaban 5 mg 05/17/25 21:00 05/19/25 20:29 Apixaban 5 Mg Tablet PO 5 mg Q12HR ARINA Administration Aspirin 81 mg 05/19/25 09:00 05/19/25 08:46 Aspirin 81 Mg Enteric Tablet PO 81 mg DAILY ARINA Administration Chlorhexidine Gluconate 15 ml 05/17/25 21:00 05/19/25 20:31 Chlorhexidine Gluconate 0.12% Oral Rinse 473 Ml Btl (*Bkc) SWISH/SPIT 15 ml Q12H ARINA Administration Ferrous Sulfate 325 mg 05/18/25 09:00 05/19/25 16:29 Ferrous Sulfate 325 Mg Tablet PO 325 mg BID ARINA Administration Furosemide 40 mg 05/19/25 17:00 05/19/25 16:29 Furosemide 40 Mg Tablet PO 40 mg BID ARINA Administration Ceftriaxone Sodium 1 gm/ 50 mls @ 100 mls/hr 05/18/25 11:10 05/19/25 14:16 Sodium Chloride IVPB Infused QAM ARINA Infusion Doxycycline Hyclate 100 mg/ 100 mls @ 100 mls/hr 05/18/25 11:10 05/19/25 20:26 Sodium Chloride IVPB 100 mls/hr Q12HR ARINA Administration Letrozole 2.5 mg 05/18/25 09:00 05/19/25 08:45 Letrozole (*Chemo) 2.5 Mg Tablet PO 2.5 mg DAILY ARINA Administration Levothyroxine Sodium 50 mcg 05/18/25 06:30 05/20/25 05:37 Levothyroxine Sodium 50 Mcg Tablet PO 50 mcg DAILY@0630 ARINA Administration Metoprolol Tartrate 50 mg 05/17/25 21:00 05/19/25 20:29 Metoprolol Tartrate 50 Mg Tab PO 50 mg Q12HR ARINA Administration Mirtazapine 7.5 mg 05/17/25 21:00 05/19/25 20:30 Mirtazapine 7.5 Mg Tablet PO 7.5 mg HS ARINA Administration Multivitamins Therapeutic 1 tablet 05/18/25 09:00 05/19/25 08:44 Multivitamins Therapeutic Tab (*Bkc) PO 1 tablet DAILY ARINA Administration Potassium Chloride 20 meq 05/18/25 09:00 05/19/25 08:43 Potassium Chloride 20 Meq Packet (For Liquid) PO 20 meq DAILY ARINA Administration Fluticasone/Salmeterol 2 puff 05/18/25 20:00 05/19/25 21:27 Fluticasone/Salmeterol 115-21 Mcg Inhaler 1 Puff INHALATION 2 puff Q12HRT ARINA Administration Vitamin D 50 mcg 05/18/25 09:00 05/19/25 08:45 Cholecalciferol (Vitamin D3) 25 Mcg (1,000 Units) Tablet PO 50 mcg DAILY ARINA Administration Radiology Results: ITS Impressions Chest X-Ray 05/17/25 13:02 IMPRESSION: 1. Small persistent effusions with bibasilar atelectatic and/or consolidative changes which could represent pulmonary edema and/or pneumonia. No definite change from May 12 chest x-ray. Labs Labs: Laboratory Results - last 24 hr 05/19/25 05/20/25 08:40 04:19 WBC 6.4 5.6 RBC 5.96 H 6.05 H Hgb 15.2 H 15.2 H Hct 49.0 H 49.0 H MCV 82.2 81.0 MCH 25.5 L 25.1 L MCHC 31.0 L 31.0 L RDW 19.8 H 19.8 H Plt Count 184 166 MPV 11.9 H 12.2 H % Immature Plt Fraction 7.1 7.8 Sodium 138 136 L Potassium 3.8 4.1 Chloride 96 L 99 Carbon Dioxide 34 H 32 H Anion Gap 8 5 BUN 19 H 23 H Creatinine 0.85 0.90 Estim Creat Clear Calc 50 46 Estimated GFR > 60 > 60 Glucose 119 H 91 Calcium 8.6 8.1 L Magnesium 1.8 1.8 Quality VTE Prophylaxis VTE prophylaxis: mechanical ordered and pharmacologic ordered
[2025-05-20] MEDS: FLUTICASONE/SALMETEROL 115-21 MCG INHALER 1 PUFF 2 PUFF INHALATION ×2 (08:13→20:38)
[2025-05-20] MEDS: POTASSIUM CHLORIDE 20 MEQ PACKET (FOR LIQUID) PO (09:24)
[2025-05-20] MEDS: METOPROLOL TARTRATE 50 MG TAB PO ×2 (09:25→20:18)
[2025-05-20] MEDS: FERROUS SULFATE 325 MG TABLET PO ×2 (09:25→17:18)
[2025-05-20] MEDS: cefTRIAXone 1 GM in SODIUM CHLORIDE 0.9% IV 50 ML 100 ML IVPB (09:26)
[2025-05-20] MEDS: MULTIVITAMINS THERAPEUTIC TAB (*BKC) 1 TABLET PO (09:26)
[2025-05-20] MEDS: CHOLECALCIFEROL (VITAMIN D3) 25 MCG (1,000 UNITS) TABLET 50 MCG PO (09:26)
[2025-05-20] MEDS: LETROZOLE (*CHEMO) 2.5 MG TABLET PO (09:26)
[2025-05-20] MEDS: ASPIRIN 81 MG ENTERIC TABLET PO (09:26)
[2025-05-20] MEDS: DOXYCYCLINE IV 100 MG in SODIUM CHLORIDE 0.9% IV 100 ML IVPB ×2 (09:26→20:16)
[2025-05-20] MEDS: FUROSEMIDE 40 MG TABLET PO ×2 (09:26→17:18)
[2025-05-20] MEDS: APIXABAN 5 MG TABLET PO ×2 (09:26→20:16)
[2025-05-20] MEDS: CHLORHEXIDINE GLUCONATE 0.12% ORAL RINSE 473 ML BTL (*BKC) 15 ML SWISH/SPIT ×2 (09:27→20:17)
--- NOTE | 2025-05-20 09:29 | P.PNCA_ITS ---
Progress Note: A&P Assessment and Plan (1) CHF (congestive heart failure): Qualifiers: Heart failure chronicity: acute on chronic Heart failure type: unspecified Qualified Code(s): I50.9 - Heart failure, unspecified Code(s): I50.9 - Heart failure, unspecified Status: Acute (2) Complete heart block: Code(s): I44.2 - Atrioventricular block, complete Status: Acute (3) Mitral valve regurgitation: Code(s): I34.0 - Nonrheumatic mitral (valve) insufficiency Status: Acute Plan 64-year-old woman with chronic systolic heart failure likely in setting of chronic RV pacing, complete heart block status post dual chamber permanent pacemaker with high RV pacing percentage for which she was upgraded to a Bi V pacemaker with recent infection leading to device removal and reimplantation with a leadless pacemaker in 12/2024, mitral valve regurgitation status post repair, history of breast cancer, hypothyroidism, asthma presented with worsening shortness of breath Acute on chronic systolic heart failure -decrease furosemide to 40 mg p.o. daily starting tomorrow -she will need to see her EP physician in clinic for consideration of Bi V pacemaker Complete heart block status post dual-chamber pacemaker with high RV pacing percentage for which she upgraded to Bi V pacemaker with recent infection leading to device removal reimplantation with leadless pacemaker -normal function device -follow-up in the EP Clinic Mitral valve regurgitation status post repair -stable Cardiology will sign off please call with questions Subjective Date/time seen: 05/20/25 09:29 Interval history: Cardiology follow-up visit for CHF Date of service 05/19/2025: Feeling better. Breathing and swelling are improving. Date of service 05/20/2025: Breathing is better today. She walked around with physical therapy and did not have any significant shortness of breath with activity. Swelling has nearly resolved. Review of Systems Cardiovascular: Cardiovascular: Reports as per HPI Respiratory: Respiratory: Reports as per HPI Exam Const: General: comfortable HENMT: Mouth: Yes moist mucous membranes Eyes: EOM: EOMs intact bilaterally Neck: Neck: no JVD Resp: Effort & Inspection: normal respiratory effort Auscultation: clear to auscultation bilaterally Cardio: Rate: regular rate Rhythm: regular rhythm Extrem: General: no pedal edema Objective Data Vital Signs Vital Signs: Vital Signs - 24 hr 05/19/25 10:00 05/19/25 11:30 05/19/25 15:55 Temperature 36.4 C L 36.3 C L Pulse Rate 55 L 56 L 94 Respiratory Rate 16 24 H Blood Pressure 114/54 L 140/74 Pulse Oximetry 96 92 Oxygen Delivery 05/19/25 16:20 05/19/25 20:29 05/19/25 20:32 Temperature 36.3 C L 36.6 C Pulse Rate 53 L 54 L 80 Respiratory Rate 16 20 Blood Pressure 153/59 H 121/48 L Pulse Oximetry 99 93 Oxygen Delivery 05/19/25 21:27 05/19/25 21:28 05/20/25 04:59 Temperature 36.7 C Pulse Rate 53 L 55 L Respiratory Rate 20 20 Blood Pressure 135/51 L Pulse Oximetry 96 95 Oxygen Delivery Room Air 05/20/25 09:25 Temperature Pulse Rate 57 L Respiratory Rate Blood Pressure Pulse Oximetry Oxygen Delivery Intake/Output Intake/Output: Intake & Output 05/17/25 05/18/25 05/19/25 05/20/25 23:59 23:59 23:59 23:59 Intake Total 200 1520 1210 540 Output Total 700 1800 1050 Balance -500 -280 160 540 Meds/Results Medications: Active Medications Generic Name Dose Route Start Last Admin Trade Name Freq PRN Reason Stop Dose Admin Acetaminophen 500 mg 05/17/25 17:58 05/20/25 05:36 Acetaminophen 500 Mg Tablet PO 500 mg Q4H PRN Administration PAIN RATED 1-3 Albuterol 2 puff 05/18/25 17:06 Albuterol Sulfate (*Sp) Aerosol 1 Puff INHALATION Q4-6H PRN Shortness Of Breath Or Wheezing Albuterol/Ipratropium 3 ml 05/17/25 23:12 Ipratropium 0.5 Mg/Albuterol Sulfate 2.5 Mg (Base) Ampul.Neb 3 Ml INHALATION Q6HRT PRN Shortness Of Breath Or Wheezing Apixaban 5 mg 05/17/25 21:00 05/20/25 09:26 Apixaban 5 Mg Tablet PO 5 mg Q12HR ARINA Administration Aspirin 81 mg 05/19/25 09:00 05/20/25 09:26 Aspirin 81 Mg Enteric Tablet PO 81 mg DAILY ARINA Administration Chlorhexidine Gluconate 15 ml 05/17/25 21:00 05/20/25 09:27 Chlorhexidine Gluconate 0.12% Oral Rinse 473 Ml Btl (*Bkc) SWISH/SPIT 15 ml Q12H ARINA Administration Ferrous Sulfate 325 mg 05/18/25 09:00 05/20/25 09:25 Ferrous Sulfate 325 Mg Tablet PO 325 mg BID ARINA Administration Furosemide 40 mg 05/19/25 17:00 05/20/25 09:26 Furosemide 40 Mg Tablet PO 40 mg BID ARINA Administration Ceftriaxone Sodium 1 gm/ 50 mls @ 100 mls/hr 05/18/25 11:10 05/20/25 09:26 Sodium Chloride IVPB 100 mls/hr QAM ARINA Administration Doxycycline Hyclate 100 mg/ 100 mls @ 100 mls/hr 05/18/25 11:10 05/20/25 09:26 Sodium Chloride IVPB 100 mls/hr Q12HR ARINA Administration Letrozole 2.5 mg 05/18/25 09:00 05/20/25 09:26 Letrozole (*Chemo) 2.5 Mg Tablet PO 2.5 mg DAILY ARINA Administration Levothyroxine Sodium 50 mcg 05/18/25 06:30 05/20/25 05:37 Levothyroxine Sodium 50 Mcg Tablet PO 50 mcg DAILY@0630 ARINA Administration Metoprolol Tartrate 50 mg 05/17/25 21:00 05/20/25 09:25 Metoprolol Tartrate 50 Mg Tab PO 50 mg Q12HR ARINA Administration Mirtazapine 7.5 mg 05/17/25 21:00 05/19/25 20:30 Mirtazapine 7.5 Mg Tablet PO 7.5 mg HS ARINA Administration Multivitamins Therapeutic 1 tablet 05/18/25 09:00 05/20/25 09:26 Multivitamins Therapeutic Tab (*Bkc) PO 1 tablet DAILY ARINA Administration Potassium Chloride 20 meq 05/18/25 09:00 05/20/25 09:24 Potassium Chloride 20 Meq Packet (For Liquid) PO 20 meq DAILY ARINA Administration Fluticasone/Salmeterol 2 puff 05/18/25 20:00 05/20/25 08:13 Fluticasone/Salmeterol 115-21 Mcg Inhaler 1 Puff INHALATION 2 puff Q12HRT ARINA Administration Vitamin D 50 mcg 05/18/25 09:00 05/20/25 09:26 Cholecalciferol (Vitamin D3) 25 Mcg (1,000 Units) Tablet PO 50 mcg DAILY ARINA Administration Radiology Results: ITS Impressions Chest X-Ray 05/17/25 13:02 IMPRESSION: 1. Small persistent effusions with bibasilar atelectatic and/or consolidative changes which could represent pulmonary edema and/or pneumonia. No definite paredes ge from May 12 chest x-ray. Labs Labs: Laboratory Results - last 24 hr 05/20/25 04:19 WBC 5.6 RBC 6.05 H Hgb 15.2 H Hct 49.0 H MCV 81.0 MCH 25.1 L MCHC 31.0 L RDW 19.8 H Plt Count 166 MPV 12.2 H % Immature Plt Fraction 7.8 Sodium 136 L Potassium 4.1 Chloride 99 Carbon Dioxide 32 H Anion Gap 5 BUN 23 H Creatinine 0.90 Estim Creat Clear Calc 46 Estimated GFR > 60 Glucose 91 Calcium 8.1 L Magnesium 1.8 Quality VTE Prophylaxis VTE prophylaxis: mechanical ordered and pharmacologic ordered
--- NOTE | 2025-05-20 13:02 | PC.NURSE ---
RN called provider Pat Swain and [facility] to get the ok to remove the IV that has clotting at the tip of insertion.
[2025-05-20] MEDS: MIRTAZAPINE 7.5 MG TABLET PO (20:18)
[2025-05-21 03:44] VITALS: BP 162/60; PULSE 69; RESP 18; TEMP 36.5; O2SAT 93
[2025-05-21 05:17] LABS: Hematocrit 47.3 % (37.0-47.0); Hemoglobin 14.8 g/dL (12.0-15.0); Immature Platelet Fraction Pct 7.5 % (0.9-11.2); Mean Corpuscular HGB Conc 31.3 g/dl (32-36); Mean Corpuscular Hemoglobin 25.6 pg (26-34); Mean Corpuscular Volume 81.7 fl (80-100); Platelet Count Result 168 k/mm3 (150-375); Red Blood Count 5.79 M/mm3 (4.2-5.4); White Blood Count 6.8 K/mm3 (4.5-10.0)
[2025-05-21 05:33] LABS: Anion Gap 8 mmol/L (4-12); Blood Urea Nitrogen 19 mg/dL (7-17); Calcium 7.6 mg/dL (8.4-10.2); Carbon Dioxide 28 mmol/L (22-30); Chloride 100 mmol/L (98-107); Estimated CRCL calculation 57 ml/min; Estimated Glomerular Filt Rate > 60; Glucose 89 mg/dL (65-110); Magnesium 1.8 mg/dL (1.6-2.3); Potassium 3.7 mmol/L (3.4-5.0); Sodium 136 mmol/L (137-145)
[2025-05-21] MEDS: LEVOTHYROXINE SODIUM 50 MCG TABLET PO (06:19)
[2025-05-21] MEDS: FLUTICASONE/SALMETEROL 115-21 MCG INHALER 1 PUFF 2 PUFF INHALATION (07:19)
[2025-05-21] MEDS: LETROZOLE (*CHEMO) 2.5 MG TABLET PO (08:43)
[2025-05-21] MEDS: POTASSIUM CHLORIDE 20 MEQ PACKET (FOR LIQUID) PO (08:43)
[2025-05-21 08:44] VITALS: PULSE 62
[2025-05-21] MEDS: FUROSEMIDE 40 MG TABLET PO (08:44)
[2025-05-21] MEDS: CHOLECALCIFEROL (VITAMIN D3) 25 MCG (1,000 UNITS) TABLET 50 MCG PO (08:44)
[2025-05-21] MEDS: MULTIVITAMINS THERAPEUTIC TAB (*BKC) 1 TABLET PO (08:44)
[2025-05-21] MEDS: METOPROLOL TARTRATE 50 MG TAB PO (08:44)
[2025-05-21] MEDS: FERROUS SULFATE 325 MG TABLET PO (08:44)
[2025-05-21] MEDS: ASPIRIN 81 MG ENTERIC TABLET PO (08:44)
[2025-05-21] MEDS: APIXABAN 5 MG TABLET PO (08:47)
[2025-05-21] MEDS: CHLORHEXIDINE GLUCONATE 0.12% ORAL RINSE 473 ML BTL (*BKC) 15 ML SWISH/SPIT (08:47)
[2025-05-21] MEDS: cefTRIAXone 1 GM in SODIUM CHLORIDE 0.9% IV 50 ML 100 ML IVPB (08:48)
[2025-05-21] MEDS: DOXYCYCLINE IV 100 MG in SODIUM CHLORIDE 0.9% IV 100 ML IVPB (08:48)
--- NOTE | 2025-05-21 10:41 | P.DS_ITS ---
DS: Admitting Diagnosis Discharge Date 05/21/25 Admitting Diagnosis - acute CHF - pneumonia - hypothyroidism - breast cancer - asthma DS: Discharge Diagnosis Discharge Diagnosis (1) CHF (congestive heart failure): Qualifiers: Heart failure chronicity: acute on chronic Heart failure type: unspecified Qualified Code(s): I50.9 - Heart failure, unspecified Code(s): I50.9 - Heart failure, unspecified Status: Acute (2) Pneumonia: Code(s): J18.9 - Pneumonia, unspecified organism Status: Acute (3) Hypothyroidism (acquired): Onset Date: Code(s): E03.9 - Hypothyroidism, unspecified Status: Chronic (4) Breast cancer: Qualifiers: Breast location: unspecified site of breast Estrogen receptor status: unspecified Patient sex: female Laterality: unspecified laterality Qualified Code(s): C50.919 - Malignant neoplasm of unspecified site of unspecified female breast Code(s): C50.919 - Malignant neoplasm of unspecified site of unspecified female breast Status: Chronic (5) Asthma: Qualifiers: Asthma severity: unspecified severity Asthma persistence: unspecified Asthma complication type: unspecified Qualified Code(s): J45.909 - Unspecified asthma, uncomplicated Code(s): J45.909 - Unspecified asthma, uncomplicated Status: Chronic DS: Summary Hospital Course Reason for hospitalization: - acute CHF - pneumonia - hypothyroidism - breast cancer - asthma Hospital Course: Ms. Mariam Parish, a 64-year-old female with a history of chronic systolic heart failure (HFrEF) status post pacemaker and mitral valve repair, presented with three weeks of worsening exertional dyspnea initially attributed to asthma. Outpatient management with increased oral furosemide was unsuccessful, prompting her admission. On arrival, she was found to have evidence of acute on chronic heart failure with pulmonary edema and possible superimposed pneumonia on chest x-ray, as well as a markedly elevated BNP. She was treated with IV diuresis and transitioned to oral furosemide with close monitoring of volume status, electrolytes, and renal function. Cardiology was consulted and recommended ongoing diuresis and outpatient follow-up for consideration of BiV pacemaker re- implantation, given her history of complete heart block and prior device infection requiring removal and subsequent leadless pacemaker placement. She was also treated empirically for pneumonia with ceftriaxone and doxycycline, with clinical improvement and no evidence of ongoing infection. She was transitioned to Augmentin and doxycycline to complete a 5-day course. During her stay, she developed a superficial venous thrombosis at the left cephalic vein IV site, which was managed by IV removal, site change, and warm compresses. She is already on Eliquis. She remained hemodynamically stable throughout her hospitalization, with resolution of lower extremity edema and improvement in respiratory symptoms. On the day of discharge, Ms. Parish was stable on room air, ambulating without significant dyspnea, and her swelling had nearly resolved. 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 She was discharged home in stable condition. Status at Discharge Overall status at discharge: patient is back to baseline Time Spent with Patient Time attestation: Total time spent providing and/or coordinating discharge services: Time spent: Greater than 30 minutes Exam Narrative: General: NAD, frail Eyes: EOMI ENT: neck supple Cardiovascular: Regular rate and rhythm Respiratory: Clear to auscultation, respirations even and unlabored on RA Gastrointestinal: Soft, non tender Genitourinary: no suprapubic tenderness Musculoskeletal: LUE with mild edema, worse in the L forearm Skin: warm, dry Neuro: Alert. Psych: Mood appropriate DS: Data Data Completed and Pending Completed studies during hospitalization: ITS Impressions Chest X-Ray 05/17/25 13:02 IMPRESSION: 1. Small persistent effusions with bibasilar atelectatic and/or consolidative changes which could represent pulmonary edema and/or pneumonia. No definite change from May 12 chest x-ray. Venous Doppler Study 05/20/25 12:49 IMPRESSION: 1. Small amount of thrombus around the tip of a peripheral IV in the left cephalic vein at the forearm. No other venous anastomosis in the left upper limb. Findings were discussed with Josee Jones, the nurse caring for the patient, at 12:54 PM. Labs on day of discharge: Labs from last 24 hours 05/21/25 03:56 WBC 6.8 RBC 5.79 H Hgb 14.8 Hct 47.3 H MCV 81.7 MCH 25.6 L MCHC 31.3 L RDW 19.6 H Plt Count 168 MPV 12.0 H % Immature Plt Fraction 7.5 Sodium 136 L Potassium 3.7 Chloride 100 Carbon Dioxide 28 Anion Gap 8 BUN 19 H Creatinine 0.76 Estim Creat Clear Calc 57 Estimated GFR > 60 Glucose 89 Calcium 7.6 L Magnesium 1.8 Preliminary micro results at discharge 05/18/25 11:53 Blood Culture - Preliminary Blood 05/18/25 11:43 Blood Culture - Preliminary Blood Discharge Plan Discharge Attending physician on discharge: Ishmael Benedict Consulting providers: Samuel Fleming; Pat Swain Discharging Clinician: Pat Swain Anticipated Discharge Date/Time: 05/21/25 10:28 Patient Disposition: Home with Home Health Service Activity: unlimited Diet: regular Discharge Instructions: Per Care Coordination, patient to discharge with [facility] ( [phone])for PT/OT and mcfp services. Agency will call to arrange initial visit. Discharge Instructions: Acute Congestive Heart Failure (CHF) and Pneumonia Medications: * Lasix (Furosemide) 40 mg once daily:?Take at the same time each day, preferably in the morning. This medication helps remove excess fluid from your body. * Augmentin (Amoxicillin-Clavulanate):?Take as prescribed until the course is completed, even if you start to feel better. * Doxycycline:?Take as prescribed until the course is completed. Take with a full glass of water and remain upright for at least 30 minutes after taking to avoid stomach upset. * You only need a few more doses to complete a 5 day course of antibiotics. Monitoring and Follow-Up: * Primary Care Provider (PCP):?Schedule a follow-up appointment within 1 week. * Process Steward:?Schedule a follow-up for as soon as possible * Blood Work:?Repeat blood tests (including electrolytes and kidney function) in 5?7 days, before your PCP appointment. This is important to monitor for any side effects from your medications, especially Lasix. Diet and Fluid Management: * Follow any fluid or salt restrictions as previously instructed. * Weigh yourself daily at the same time each morning. Notify your provider if you gain more than 2?3 pounds in a day or 5 pounds in a week. Activity: * Resume activity as tolerated. Rest as needed and avoid strenuous activity until you feel stronger. When to Seek Immediate Medical Attention: * Shortness of breath at rest or worsening difficulty breathing * Chest pain or pressure * Swelling in your legs, ankles, or abdomen that is rapidly increasing * Coughing up blood or thick, colored sputum * Confusion, severe weakness, or fainting * Decreased urination or no urine output Other Instructions: * Take all medications as prescribed. Do not skip doses. * If you miss a dose, take it as soon as you remember unless it is almost time for your next dose. * Do not take any new sccy-wsw-mbifdxc medications or supplements without checking with your provider, as some may worsen heart failure or interact with your medications. Contact Information: * If you have questions or concerns, contact your PCP or paving machine operator. * For urgent issues, go to the nearest emergency department or call 911. Summary:?You are being discharged after treatment for acute CHF and pneumonia. Continue your home dose of Lasix and complete your antibiotics. Follow up with your PCP and paving machine operator, and have blood work done in 5?7 days to monitor your kidney function and electrolytes. Watch for any warning signs and seek help if needed. You have been diagnosed with a superficial venous thrombosis (SVT), which is a blood clot in a vein close to the surface of your skin. This condition is usually less serious than a deep vein thrombosis (DVT), but it still requires careful management. Home Care Instructions 1. Activity * Stay active: Walk regularly to promote circulation. Avoid prolonged bed rest or sitting for long periods. * Elevate the affected limb when resting to reduce swelling. 2. Compression * Wear compression stockings as directed to help reduce swelling and discomfort. * Put stockings on in the morning before getting out of bed and wear them throughout the day. 3. Medications * Take any prescribed medications as directed (e.g., anti-inflammatories such as ibuprofen, or anticoagulants if prescribed). * Use dbda-gns-zsudhmu pain relievers (acetaminophen or ibuprofen) for discomfort, unless contraindicated. 4. Local Care * Apply warm compresses to the affected area several times a day to relieve pain and inflammation. * Avoid massaging the area directly over the clot. 5. Monitor for Complications?Contact your healthcare provider or seek immediate medical attention if you experience: * Increased redness, swelling, or pain in the affected limb * New or worsening shortness of breath, chest pain, or coughing up blood (signs of possible pulmonary embolism) * Fever or chills * Signs of the clot spreading (redness or tenderness moving up the limb) 6. Follow-Up * Attend all scheduled follow-up appointments for reassessment. * Additional imaging or blood tests may be needed to monitor your condition. Additional Tips * Stay well hydrated. * Avoid smoking and minimize alcohol intake. * Do not stop or change any medications without consulting your provider. Patient Instructions: Antibiotic Form, Apixaban (By mouth), Heart Failure (DC) Patient Language: New Zealander Stand Alone Forms: General Discharge Information Follow-up/Referrals: Jose,FELICIA Damian [Primary Care Provider, Unknown] - Call for Appointment Referral Note: Follow-up in 1 week Discharge Medications: New amoxicillin-pot clavulanate 875-125 mg tablet 1 tablet PO Q12H Qty: 2 0RF doxycycline hyclate 100 mg capsule 100 mg PO BID Qty: 3 0RF Continued fluticasone furoate-vilanterol [Breo Ellipta] 100-25 mcg/dose Blister With Device 1 inh INHALATION DAILY fluticasone propion-salmeterol [Wixela Inhub] 250-50 mcg/dose blister with device 1 inh INHALATION Q12H albuterol sulfate 90 mcg/actuation HFA aerosol inhaler 2 inh INHALATION Q4-6H PRN (Reason: shortness of breath or wheezing) metoprolol tartrate 50 mg tablet 50 mg PO BID levothyroxine 50 mcg tablet 50 mcg PO DAILY letrozole 2.5 mg tablet 2.5 mg PO DAILY multivitamin Tablet 1 tablet PO DAILY cholecalciferol (vitamin D3) 2,000 unit tablet 2,000 unit PO DAILY aspirin 81 mg tablet,delayed release (DR/EC) 81 mg PO DAILY furosemide 20 mg tablet 40 mg PO DAILY Patient Comments: PATIENT TAKES 40 MG IN AM AND 20 MG AT DINNER chlorhexidine gluconate 0.12 % mouthwash 15 ml PO Q12H potassium chloride 20 mEq tablet,ER particles/crystals 20 meq PO DAILY acetaminophen 500 mg capsule 500 mg PO Q4H PRN (Reason: pain) Prolia 60 mg/mL syringe 60 mg subcut [id number] ferrous sulfate 325 mg (65 mg iron) tablet 325 mg PO BID Eliquis 5 mg tablet 5 mg PO BID mirtazapine 7.5 mg tablet 7.5 mg PO DAILY Discontinued amoxicillin 500 mg tablet 500 mg PO Q8H Patient Comments: LAST DOSE DUE AT 1500 ON 05/17/25 Other Ambulatory Orders: Basic Metabolic Panel (Routine) Timeframe: 5 Days Location: Determined by Patient Ordered By: Pat Swain Date of admission: 05/19/25 14:42 Primary Care Provider: Jose,Nati Admitting Provider: Melquiades Santizo Attending physician on admission: Melquiades Santizo Condition: Stable
== END 2025-05-21 12:15 | disposition home health service (06) | DRG 291 ==
LOC: ANHED 12:35 → ANHIMU 14:52 → ANH2MED 05-19 16:14
PROVIDERS: Family Medicine; Nurse Practitioner Adult Health; Admitting Provider Internal Medicine; Emergency Provider Emergency Medicine; PCP Physician Assistant; Visit Provider Physician Assistant
DX: I50.23 Acute on chronic systolic (congestive) heart failure (principal); J18.9 Pneumonia, unspecified organism; I82.612 Acute embolism and thrombosis of superficial veins of left upper extremity; T82.868A Thrombosis due to vascular prosthetic devices, implants and grafts, initial encounter; I34.0 Nonrheumatic mitral (valve) insufficiency; E89.0 Postprocedural hypothyroidism; J45.909 Unspecified asthma, uncomplicated; M85.80 Other specified disorders of bone density and structure, unspecified site; Z20.822 Contact with and (suspected) exposure to COVID-19; Z79.82 Long term (current) use of aspirin; Z85.3 Personal history of malignant neoplasm of breast; Z95.0 Presence of cardiac pacemaker; Z79.01 Long term (current) use of anticoagulants
CPT/HCPCS: 36415; 71046; 80048; 80053; 80069; 83735; 83880; 84484; 85025; 85027; 85055; 85610; 85730; 87040; 87637; 93005; 93971; 94640; 96365; 96366; 96374; 96375; 97161; 97165; 99285; A4248; A9270; C8929; G0378; J0696; J1938; Q9957

== ENCOUNTER 2025-06-23 16:27 | Outpatient (CLI) | payer OTHER, SELFPAY ==
--- OUTSIDE RECORDS SUMMARY | 2025-06-22 10:15 | XMS_ITS | Encounter Summary ---
Author Organization [facility] Healthcare Address [address] [place] [address] Care Team Providers Care Chain Maker Loom Control Name Role Phone Sung Do MD Unavailable [phone] Saul Marquez MD Unavailable [phone] Nati Garcia Primary Care Prov ider Reason for Visit * Cardiology (Routine) - Closed Specialty Diagnoses / Procedures Referred By Contac t Referred To Contact Cardiology Diagnoses CHB (complete heart block) Cardiac pacemaker in situ Procedures DEVICE CHECK - REMOTE Neto Nayak MD [address] [facility] [address] [place] [address] Phone: tel: fax: [facility] Medical Group Referral ID Status Reason Start Date Expiration Date Visits Re quested Visits Authorized [id number] Closed 02/09/2025 08/12/2026 1 1 Encounter Details Date Type Department Care Team (Latest Contact Info) Description 06/22/2025 10:15 AM TREE AND SHRUB TECHNICIAN Ancillary Procedure [facility] Medical Group Cardiology [address] [place] [address] [place] [id number] CHB (complete heart block); Cardiac pacemaker in situ Social History Tobacco Use Types Packs/Day Years [...] on file Legal Sex Female 12:19 AM TREE AND SHRUB TECHNICIAN Gender Identity Not on file Sexual Orientation Not on file Occupation Industry Job Start Date Job End Date Retired Not on file Not on file Not on file documented as of this encounter Plan of Treatment Not on file documented as of this encounter Procedures Procedure Name Priority Date/Time Associated Diagnosis Comments DEVICE CHECK - REMOTE Routine 06/22/2025 10:37 AM TREE AND SHRUB TECHNICIAN CHB (complete heart block) Cardiac pacemaker in situ documented in this encounter Results * DEVICE CHECK - REMOTE (06/22/2025 10:37 AM TREE AND SHRUB TECHNICIAN) Anatomical Region Laterality Modality Other Narrative 06/23/2025 9:27 AM TREE AND SHRUB TECHNICIAN Medtronic Micra AV2 Leadless Pacemaker. Dx; CHB. DOI 12/09/2024-[place], [place]. [facility] remote. Routine VDD Pacemaker Remote. Transmission attached. Battery status: 3.11 V V, > 10.0 years remaining battery life to CARLOS. Stable electrode impedance, pacing and sensing thresholds. Presenting rhythm: AM/MARKETING DATA SPECIALIST MARKETING DATA SPECIALIST AM/MARKETING DATA SPECIALIST- 26.3 %, MARKETING DATA SPECIALIST- 73.7 % Medications: Apixaban 5 mg, ASA 81 mg, metoprolol 50 mg See scanned report. Office pacemaker follow up: 9 months [facility] remote f/u 09/28/25. us Neto Nayak MD [facility] PROC EDURES Final Result documented in this encounter Visit Diagnoses Diagnosis CHB (complete heart block) Atrioventricular block, complete Cardiac pacemaker in situ documented in this encounter Care Teams Chain Maker Loom Control Relationship Specialty Start Date End Date Nati Garcia PA 2 [facility] [address] [address] PCP - General Neurosurgery 10/14/24 Sung Do MD Consulting Physician Cardiology 10/16/18 Saul Marquez MD Surgeon Orthopedic Surgery 08/28/21 documented as of this encounter
--- NOTE | ~2025-06-23 | XR_ITS ---
EXAMINATION: XR chest 2V, 06/23/2025 16:37 WEIGH TANK OPERATOR HISTORY: shortness of breath COMPARISON: No comparisons available. Technique: 2 views obtained. Findings: Small basilar infiltrates and effusions with probable loculated right sided pleural effusion. Moderate pulmonary venous congestion. No pneumothorax. Heart is normal size. Mediastinal and hilar contours are within normal limits. Post sternotomy. Impression: CHF. Superimposed probable pneumonia. The findings appear slightly progressed compared to the previous study. Reviewed, dictated and finalized at location P. H TANK OPERATOR Impression: CHF. Superimposed probable pneumonia. The findings appear slightly progressed c ompared to the previous study.
--- OUTSIDE RECORDS SUMMARY | 2025-06-23 13:30 | XMS_ITS | Encounter Summary ---
Author Organization [facility] Healthcare Address [address] [place] [address] Care Team Providers Care Automatic Blocker Name Role Phone Sung Do MD Unavailable [phone] Saul Marquez MD Unavailable [phone] Nati Garcia Primary Care Prov ider Reason for Referral * Diagnostic Imaging (Routine) - Authorized Specialty Diagnoses / Procedures Referred By Contac t Referred To Contact Diagnoses History of recent pneumonia Dyspnea on exertion Procedures XR Sniff Test W 2 View Chest Rosa Tellez NP [address] [address] Phone: tel: fax: External Order Referral ID Status Reason Start Date Expiration Date V isits Requested Visits Authorized [id number] Authorized 06/23/2025 07/23/2026 1 1 WAVE ASSEMBLER Reason for Visit * Reason Comments Hospital Follow Up Congestive Heart Failure CHB Valve Disorder Discuss new pacemake r implant Encounter Details Date Type Department Care Team (Late st Contact Info) Description 06/23/2025 1:30 PM PRE WAVE ASSEMBLER Office Visit [facility] Cardiology [address] [place] [phone] Rosa Tellez, BUTCH [address] [place] [address] History of recent pneumonia (Primary Dx); Dyspnea on exertion; Nonischemic cardiomyopathy (HCC); Chronic heart failure with preserved ejection fraction; CHB (complete heart block); Cardiac pacemaker in situ; History of mitral valve repair Social History Tobacco Use Types Packs/Day Years [...] on file Legal Sex Female 12:19 AM PRE WAVE ASSEMBLER Gender Identity Not on file Sexual Orientation Not on file Occupation Industry Job Start Date Job End Date Retired Not on file Not on file Not on file documented as of this encounter Last Filed Vital Signs Vital Sign Reading Time Taken Comments Blood Pressure 154/70 06/23/2025 1:37 PM PRE WAVE ASSEMBLER Pulse 52 06/23/2025 1:37 PM PRE WAVE ASSEMBLER Temperature - - Respiratory Rate - - Oxygen Saturation 99% 06/23/2025 1:37 PM PRE WAVE ASSEMBLER Inhaled Oxygen Concentration - - Weight 50.8 kg (112 lb) 06/23/2025 1:37 PM PRE WAVE ASSEMBLER Height 162.6 cm (5' 4) 06/23/2025 1:37 PM PRE WAVE ASSEMBLER Body Mass Index 19.22 06/23/2025 1:37 PM PRE WAVE ASSEMBLER documented in this encounter Functional Status * BP Location Answer Date of Assessment Author Right arm 06/23/2025 1:37 PM PRE WAVE ASSEMBLER Taisha Aguillon MA * BP Location Answer Date of Assessment Author Right arm 06/23/2025 1:37 PM PRE WAVE ASSEMBLER Taisha Aguillon MA documented as of this encounter Progress Notes * Rosa Tellez NP - 06/23/2025 1:30 PM CST Images from the original note were not included. [facility] Cardiology [address] [place] [address] Date of Visit: 06/23/2025 Patient ID: Mariam Parish 1960 Chief Complaint Patient presents with Hospital Follow Up Congestive Heart Failure CHB Valve Disorder Discuss new pacemaker implant Mariam Parish is a 64 y.o. female who is a former patient of Dr. Do with a history of cardiomyopathy, mitral valve repair and Bi V pacer returning for follow-up after she was hospitalized for CHFand pneumonia. History of Present Illness: Mariam Parish is [...] appointments. October [address] Osullivan in [place] performed device generator change on 10/19/2024. When she went for follow-up appointment 10 days later she was found to have a hematoma of the pocket and it was infected. Even with antibiotics and debridement the infection did not resolve and the device became infected including the leads (Pseudomonas). Everything was extracted at [facility] by Dr. Marcelo on 12/08/2024 and she had implantation of a micra leadless device. Her metoprolol was held and she was put on lisinopril. She was discharged from [facility] on 12/17/2024 and transferred to [facility] in [place] where she continued to receive IV antibiotics by PICC line with a wound VAC. She then went home and the wound was managed by [facility]. In May she was experiencing worsening shortness of breath and lower extremity edema. Chest x-ray indicated possible pneumonia and CHF. She was admitted to [facility] on 05/17/2025. She was diuresed with IV Lasix and given antibiotics. Echocardiogram showed mildly reduced LV systolic function with EF 45-50%, elevated right atrial pressure. 06/23/2025 office visit with PROCESS MAINTENANCE TECHNICIAN: She returns today for hospital follow-up accompanied by her sister. She feels like her shortness of breath is about the same. Home weight is remaining stable between 112-114 lb. Sometimes she loses her breath when she is talking. She is scheduled to see EP through [facility] for upgrading her ICD to a Bi V device. Medical History: Past Medical History: Diagnosis Date [...] Review of Systems Constitutional: Positive for weight loss. Negative for malaise/fatigue and weight gain. Cardiovascular: Positive for dyspnea on exertion (Chronic) and leg swelling. Negative for chest pain, claudication, near-syncope, orthopnea, palpitations, paroxysmal nocturnal dyspnea and syncope. Respiratory: Negative for cough and sleep disturbances due to breathing. Hematologic/Lymphatic: Negative for bleeding problem. Neurological: Negative for light-headedness (changes positions slowly to avoid lightheadedness). Vital Signs: BP 154/70 (BP Location: Right arm, Patient Position: Sitting) Pulse 52 Ht 162.6 cm (5' 4) Wt50.8 kg (112 lb) SpO2 99% BMI 19.22 kg/m?? Physical Exam Constitutional: General: She is not in acute distress. Appearance: She is well-developed. HENT: Head: Normocephalic and atraumatic. Eyes: General: No scleral icterus. Conjunctiva/sclera: Conjunctivae normal. Neck: Vascular: JVD present. Comments: Scarring Cardiovascular: Rate and Rhythm: Normal rate and regular rhythm. Heart sounds: Normal heart sounds. No murmur heard. Pulmonary: Effort: Pulmonary effort is normal. No respiratory distress. Breath sounds: Decreased breath sounds present. Musculoskeletal: Right lower leg: Edema present. Left lower leg: Edema present. Comments: LLE 1+ pedal and pretibial edema, RLE trace pedal and pretibial edema. Skin: General: Skin [...] as needed for wheezing, Disp: , Rfl: aspirin 81 mg enteric coated tablet, Take 1 tablet (81 mg total) by mouth daily, Disp: , Rfl: cholecalciferol (VITAMIN D-3) 2000 [...] Rfl: furosemide (LASIX) 20 mg tablet, Take 2 tabs (40 mg) in the am and one tab (20 mg) in the pm., Disp: 270 tablet, Rfl: 3 letrozole (FEMARA) 2.5 mg tablet, Take 1 tablet (2.5 mg total) by mouth nightly, Disp: , Rfl: levothyroxine (SYNTHROID) 75 mcg tablet, Take 1 tablet (75 mcg total) by mouth daily, Disp: , Rfl: metoprolol tartrate (LOPRESSOR) 50 mg immediate release tablet, Take 1 tablet (50 mg total) by mouth 2 (two) times a day, Disp: 180 tablet, Rfl: 3 mirtazapine (REMERON) 7.5 mg tablet, Take 1 tablet (7.5 mg total) by mouth nightly, Disp: , Rfl: multivitamin tablet, daily, Disp: , Rfl: potassium chloride (KLOR-CON) 20 mEq packet, Take 1 packet (20 mEq total) by mouth 2 (two) times a day Dissolve each packet in at least 4 ounces (120 mL) of cold water or other beverage prior to administration., Disp: 60 packet, Rfl: 11 Wixela Inhub 250-50 mcg/dose diskus inhaler, Inhale 1 puff 2 (two) times a day, Disp: , Rfl: Lab Results Component Value Date POTASSIUM 4.3 05/27/2025 BUNSER 20 05/27/2025 CREATININE 0.72 05/27/2025 CHOL 165 03/23/2019 TRIG 128 03/23/2019 LDLCALC 86 03/23/2019 HDL 53 03/23/2019 Lab Results Component Value Date WBC 7.75 10/31/2024 HGB 12.0 10/31/2024 HCT 37.0 10/31/2024 MCV 87.3 10/31/2024 TTE on 11/04/24 showed EF 72% AMOR 12/07/24 showed EF 60-65%. TTE 04/05/2025 LVEF 53% TTE 05/18/2025 showed EF Assessment: Diagnoses and all orders for this visit: History of recent pneumonia (Primary) - XR Sniff Test W 2 View Chest; Future Dyspnea on exertion - XR Sniff Test W 2 View Chest; Future Nonischemic cardiomyopathy (HCC) Chronic heart failure with preserved ejection fraction CHB (complete heart block) Cardiac pacemaker in situ History of mitral valve repair Plan/Recommendations: Due to her recent pneumonia and the fact that she is losing breath with speaking, I will send her for a repeat chest x-ray and ask them to do a sniff test with it. She has a history of nonischemic cardiomyopathy with chronic heart failure. She also has a history of complete heart block and left bundle-branch block with a pacemaker. Her LVEF improved in 2019 after implantation of Bi V device. Earlier this year she had infection after generator change of her device and therefore it was explanted and she had a leadless pacemaker implanted. Then she went into CHF probably due to LV dyssynchrony. She now has a consultation set up with EP in regards to getting a new Bi V device. In the past she did not tolerate both beta-gavino and Luis or Arb due to hypotension. She did well with the metoprolol alone. Therefore I took her off lisinopril and resumed her metoprolol. I doubt she would tolerate resumption of an LUIS/ARB/ARNI. She was on Eliquis because she developed a DVT in the left upper extremity following the infection of the pacemaker pocket. She completed 6 months of oral anticoagulation in his now off Eliquis. She resumed her aspirin. She also has a history of mitral valve repair. She sees cardiothoracic surgeon annually. Mitral valve appeared to be functioning adequately on recent echocardiogram. Aortic stenosis was moderate. Again, we will continue to monitor this with annual echocardiogram. Return for routine follow-up with me in 3 months. 06/23/2025 AUBREY Sanchez- Nurse Practitioner with [facility] This note is dictated and transcribed using [employer] Direct Software. Deskidding Machine Operator variancesmay occur. Despite proofreading, typographical errors may occur. WAVE ASSEMBLER documented in this encounter Plan of Treatment Scheduled Orders Name Type Priority Associated Diagnoses Orde r Schedule XR Sniff Test W 2 View Chest Imaging Schedule Routine, Read Routine (OP Routine) History of recent pneumonia Dyspnea on exertion Expected: 06/23/2025, Expires: 06/23/2026 documented as of this encounter Visit Diagnoses Diagnosis History of recent pneumonia- Primary Dyspnea on exertion Other dyspnea and respiratory abnormality Nonischemic cardiomyopathy (HCC) Other primary cardiomyopathies Chronic heart failure with preserved ejection fraction CHB (complete heart block) Atrioventricular block, complete Cardiac pacemaker in situ History of mitral valve repair documented in this encounter Discontinued Medications Medication Sig Discontinue Reason Start Date End Da te levothyroxine (SYNTHROID) 50 mcg tablet No longer taking - Do not display on AVS 07/18/2022 06/23/[address] (PROTONIX) 40 mg EC tablet Take 1 tablet (40 mg total) by mouth daily No longer taking - Do not display on AVS 01/24/2025 06/23/2025 apixaban (ELIQUIS) 5 mg tablet Take 1 tablet (5 mg total) by mouth 2 (two) times a day Therapy completed 01/24/2025 06/23/2025 documented as of this encounter Historical Medications * This list may reflect changes made after this encounter. levothyroxine (SYNTHROID) 75 mcg tablet Take 1 tablet (75 mcg total) by mouth daily 05/31/2025 added in this encounter Care Teams Automatic Blocker Relationship Specialty Start Date End Date Nati Garcia PA [address] [address] PCP - General Neurosurgery 10/14/24 Sung Do MD Consulting Physician Cardiology 10/16/18 Saul Marquez MD Surgeon Orthopedic Surgery 08/28/21 documented as of this encounter
--- OUTSIDE RECORDS SUMMARY | 2025-06-23 16:30 | XMS_ITS | Encounter Summary ---
Author Organization [facility] Healthcare Address [address] [place] [address] Care Team Providers Care Cleaner And Presser Name Role Phone Sung Do MD Unavailable Saul Marquez MD Unavailable [phone] Nati Garcia Primary Care Prov ider Encounter Details Date Type Department Care Team (Late st Contact Info) Description 06/22/2025 Telephone [facility] Cardiology [facility] [address] [place] [phone] Rosa Tellez NP [address] [facility] [address] [place] [address] Social History Tobacco Use Types Packs/Day [...] on file Legal Sex Female 12:19 AM DIRECTOR OF BUSINESS SYSTEMS Gender Identity Not on file Sexual Orientation Not on file Occupation Industry Job Start Date Job End Date Retired Not on file Not on file Not on file documented as of this encounter Miscellaneous Notes * Telephone Encounter - Elieser Brooke RN - 06/22/2025 9:37 AM DIRECTOR OF BUSINESS SYSTEMS Called and left reminder message for patient to send in their pacemaker report. CTOR OF BUSINESS SYSTEMS documented in this encounter Plan of Treatment Not on file documented as of this encounter Visit Diagnoses Not on filedocumented in this encounter Care Teams Cleaner And Presser Relationship Specialty Start Date End Date Nati Garcia PA [address] [address] PCP - General Neurosurgery 10/14/24 Sung Do MD Consulting Physician Cardiology 10/16/18 Saul Marquez MD Surgeon Orthopedic Surgery 08/28/21 documented as of this encounter
--- OUTSIDE RECORDS SUMMARY | 2025-06-23 16:30 | XMS_ITS | Clinical Summary ---
Author Organization [facility] Address [address] [place] [address] Care Team Providers Care Donor Services Manager Name Role Phone Priya Gallego MD Primary Care Provider + Source Comments [facility],non-owned Affiliates and Associated Physician Practices is amultiple site organization consisting of ambulatory clinics and hospital sitesin [place], [place]. This disclosure is being madepursuant to the Care Everywhere program and may not contain all information available regarding this patient. Last updated 18.[facility] [employer] Social History Tobacco Use Types Packs/Day Years Used Date Smoking Tobacco: Never Assessed Comments Unknown Sex and Gender Information Value Date Recorded Sex Assigned at Not on file Legal Sex Female 6:30 AM FORM STRIPPER Gender Identity Not on file Sexual Orientation [...] DEPRESSION SCREENING 07/07/2024 COVID-19 VACCINE ( - 2024-2 6 season) 2025 INFLUENZA VACCINE (#1) 2025 Respiratory [...] MEDICAID - OUT OF STATE Care Teams Donor Services Manager Relationship Specialty Start Date End Date Priya Gallego MD [address] [place] [address] PCP - General 12/05/17
--- OUTSIDE RECORDS SUMMARY | 2025-06-23 16:30 | XMS_ITS | Encounter Summary ---
Author Organization [facility] Address [address] [place] [address] Phone Care Team Providers Care Assembler Truck Trailer Name Role Phone Symone Juan David Fisher MD Unavailable [phone] Hector Rendon MD Unavailable Rohit Cardoso MD Unavailable [phone] Sung Do MD Unavailable Silvano Byrne MD Primary Care Provider Shawn Alves MD Unavailable Nati Garcia [facility] Primary Care Pro vider Reason for Visit * Reason Comments Medication Refill Encounter Details Date Type Department Care Team (Late st Contact Info) Description 04/24/2023 Refill [facility] - [facility] [address] [place] [phone] Silvano Byrne MD [address] [place] [address] Medication Refill Social History Tobacco Use Types [...] Start Date Job 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 Date 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 Not on file Not on file No [...] Care Team (Late st Contact Info) Description 08/03/2025 1:30 PM RN ADVICE Office Visit [facility] - Cardiology - [place] [address] [place] [address] Nati Garcia, PAC [address] [place] [address] Nissa Monzon MD [address] [address] 08/30/2025 11:00 AM RN ADVICE Office Visit [facility] Primary [facility] - [place] [address] [place] [phone] Nati Garcia, DEEDEE [address] [place] [address] 10/25/2025 11:00 AM CDT Office Visit [facility] Oncology Services [address] [place] [address] Hector Rendon MD [address] [place] [address] Discharge Disposition: Discharged to home or Selfcare 10/25/2025 11:30 AM CDT Clinical Support [facility] Oncology Services [address] [place] [address] Hector Rendon MD [address] [place] [address] Discharge Disposition: Discharged to home or Selfcare [...] documented as of this encounter Care Teams Assembler Truck Trailer Relationship Specialty Start Date End Date Silvano Byrne MD [address] [facility] [address] [place] [address] PCP - General Family Medicine 02/25/20 03/23/24 Nati Garcia PAC [address] [address] PCP - General Physician Reading Interventionist 03/24/24 Juan David Ashby MD Consulting Physician General Surgery 12/27/19 Hector Rendon MD [address] [place] [address] Consulting Physician Medical Oncology 12/27/19 Rohit Cardoso MD [address] [place] [address] Consulting Physician Radiation Oncology 12/27/19 Sung Do MD [address] [facility] [address] [place] [address] Consulting Physician Cardiovascular Disease - Cardiology 12/28/19 Shawn Alves MD [address] [address] Consulting Physician Colon and Rectal Surgery 05/10/22 documented as of this encounter
--- OUTSIDE RECORDS SUMMARY | 2025-06-23 16:30 | XMS_ITS | Encounter Summary ---
Author Organization [facility] Address [address] [place] [address] Phone Care Team Providers Care Spear Fisher Name Role Phone SymoneJuan David MD Unavailable Hector Rendon MD Unavailable Rohit Cardoso MD Unavailable [phone] Sung Do MD Unavailable [phone] Silvano Byrne MD Primary Care Provider [phone] Shawn Alves MD Unavailable Nati Garcia [facility] Primary Care Pro vider Encounter Details Date Type Department Care Team (Late st Contact Info) Description 11/26/2023 Telephone [facility] [address] [place] [phone] Silavno Byrne MD [address] [place] [address] Social History Tobacco Use Types Packs/Day Years [...] Start Date Job End Date 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 Not on file Not on file No t on file documented as of this encounter Plan of Treatment Upcoming Encounters Date Type Department Care Team (Late Contact Info) Description 08/03/2025 1:30 PM BODY SHOP MANAGER Office Visit [facility] Cardiology [facility] [address] [place] [address] Nati Garcia, PAC [address] [place] [address] Nissa Monzon MD [address] [address] 08/30/2025 11:00 AM BODY SHOP MANAGER Office Visit [facility] - Primary Care - [place] [address] [place] [phone] Nati Garcia, DEEDEE [address] [place] [address] 10/25/2025 11:00 AM CDT Office Visit [facility] On[facility] Services [address] [place] [phone] Hector Rendon MD [address] [place] [address] Discharge Disposition: Discharged to home or Selfcare 10/25/2025 11:30 AM CDT Clinical Support [facility] Oncology Services [address] [place] [phone] Hector Rendon MD [address] [place] [address] Discharge Disposition: Discharged to home or Selfcare [...] documented as of this encounter Care Teams Spear Fisher Relationship Specialty Start Date End Date Silvano Byrne MD [address] [address] PCP - General Family Medicine 02/25/20 03/23/24 Nati Garcia PAC [address] [address] PCP - General Physician Certified Meeting Professional 03/24/24 Juan David Ashby MD Consulting Physician General Surgery 12/27/19 Hector Rendon MD [address] [place] [address] Consulting Physician Medical Oncology 12/27/19 Rohit Cardoso MD [address] [place] [address] Consulting Physician Radiation Oncology 12/27/19 Sung Do MD [address] [address] Consulting Physician Cardiovascular Disease - Cardiology 12/28/19 Shawn Alves MD [address] [place] [address] Consulting Physician Colon and Rectal Surgery 05/10/22 documented as of this encounter
--- OUTSIDE RECORDS SUMMARY | 2025-06-23 16:30 | XMS_ITS ---
Author Organization [facility] Address [address] [place] [address] Care Team Providers Care Accounts Payable Administrator Name Role Phone Sung Do MD Unavailable [phone] Saul Marquez MD Unavailable Nati Garcia Primary Care Prov ider Active Problems Problem Noted Date Diagnosed Date Cardiac pacemaker in situ 02/09/2025 Overview (02/09/2025): Medtronic Micra AV2 Leadless Pacemaker. Dx; CHB. DOI 12/09/2024-[place], [place]. Carelink remote. Cardiac resynchronization th erapy pacemaker (SUPERVISOR MALT HOUSE-P) in place 03/19/2024 Aftercare following right hip [...] total fan radiation, radiotherapy in 1975 at [facility] in the management of Hodgkin's disease. Records were unavailable. Right partial breast radiotherapy, 50.4 Gy in 28 fractions, from 01/10/2020 thru 02/16/2020. 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 She received radiation therapy at [place] with what from her description sounded [...] (09/16/2018): Added automatically from request for surgery [id number] Dizziness 07/09/2018 H/O sinus bradycardia 04/16/2018 Pleural [...]
--- OUTSIDE RECORDS SUMMARY | 2025-06-23 16:30 | XMS_ITS | Encounter Summary ---
Author Organization [facility] Healthcare Address [address] [place] [address] Care Team Providers Care Aesthetician Name Role Phone Sung Do MD Unavailable [phone] Saul Marquez MD Unavailable Nati Garcia Primary Care Prov ider Reason for Visit * Reason Onset Date Comments imaging order 06/23/2025 Encounter Details Date Type Department Care Team (Late st Contact Info) Description 06/23/2025 Telephone [facility] Cardiology [address] [facility] [address] [place] [phone] Rosa Tellez NP [address] [place] [address] imaging order Social History Tobacco Use Types Packs/Day Years [...] on file Legal Sex Female 12:19 AM LCSW Gender Identity Not on file Sexual Orientation Not on file Occupation Industry Job Start Date Job End Date Retired Not on file Not on file Not on file documented as of this encounter Miscellaneous Notes * Addendum Note - Trisha Olsen RN - 06/23/2025 4:14 PM CSTAddended by: TRISHA OLSEN on: 06/23/2025 04:14 PM Modules accepted: Orders * Telephone Encounter - Trisha Olsen RN - 06/23/2025 4:[address], ok to D/C sniff test and order 2 view CXR, order faxed, DJ aware * Telephone Encounter - Sylvie Goyal - 06/23/2025 3:27 PM CST Robi (pts sister) states that Александр is booked out unt Aug 2025 for the sniff test. Requesting CT send in a new order for just a chest CT so they can have that performed today. Please advise. Thank you. Contact [phone] * Telephone Encounter - Trisha Olsen RN - 06/23/2025 3:00 PM LCSW Order faxed * Telephone Encounter - Sylvie Goyal - 06/23/2025 2:53 PM CST Would like order faxed to [phone]. Please advise. Thank you. Contact [phone] * Telephone Encounter - Sylvie Goyal. - 06/23/2025 2:34 PM CST Pt was just seen in office today by CT and she ordered a XR Sniff Test W 2 View Chest. States that they are at the [facility] now and they don't have the order. Asking that we resend theorder. Please advise. Thank you. Contact [phone] documented in this encounter Plan of Treatment Scheduled Orders Name Type Priority Associated Diagnoses Orde r Schedule XR Chest PA Lateral 2 Views Imaging Schedule Routine, Read Routine (OP Routine) Shortness of breath Expected: 06/23/2025, Expires: 06/23/2026 documented as of this encounter Visit Diagnoses Diagnosis Shortness of breath- Primary documented in this encounter Care Teams Aesthetician Relationship Specialty Start Date End Date Nati Garcia PA [address] [address] PCP - General Neurosurgery 10/14/24 Sung Do MD Consulting Physician Cardiology 10/16/18 Saul Marquez MD Surgeon Orthopedic Surgery 08/28/21 documented as of this encounter
--- OUTSIDE RECORDS SUMMARY | 2025-06-23 16:30 | XMS_ITS | Encounter Summary ---
Author Organization [facility] Address [address] [place] [address] Care Team Providers Care Timber Feller Name Role Phone Priya Gallego MD Primary Care Provider + Encounter Details Date Type Department Care Team (Late st Contact Info) Description 11/11/2019 Lab Requisition [facility] [address] [place] [address] Michael Vidales MD Social History Tobacco Use Types Packs/Day Years Used Date Smoking Tobacco: Never Assessed Comments Unknown Sex and Gender Information Value Date Recorded Sex Assigned at Not on file Legal Sex Female 6:30 AM INFORMATION MANAGEMENT OFFICER Gender Identity Not on file Sexual Orientation [...] Not detected, Invalid 11/11/2019 9:50 PM CDT [facility] MICROBIOLOGY Microbiology SPECIMEN FROM NASOPHARYNGEAL STRUCTURE / Unknown Collection / Unknown 11/11/2019 6:14 AM CDT 11/11/2019 12:53 PM CDT Narrative [facility] MICROBIOLOGY - 11/11/2019 9:50 PM CDT This Real Time RT-PCR assay was developed and its performance characteristics determined by [facility]biology [facility]. This test has been [...] LAB - MICROBIOLOGY ORDERABL ES Final Result [facility] MICRO[facility] [address] [place], [place] [address], [facility] [phone] documented in this encounter Visit Diagnoses Not on filedocumented in this encounter Care Teams Timber Feller Relationship Specialty Start Date End Date Priya Gallego MD [address] [place] [address] PCP - General 12/05/17 documented as of this encounter
--- OUTSIDE RECORDS SUMMARY | 2025-06-23 16:30 | XMS_ITS | Clinical Summary ---
Author Organization [facility] Address [address] [place] [address] Care Team Providers Care Production Expediter Name Role Phone Sung Do MD Unavailable [phone] Saul Marquez MD Unavailable [phone] Nati Garcia Primary Care Prov ider Allergies [...] (2.5 mg total) by mouth nightly 05/16/20 Active denosumab (PROLIA) 60 mg/mL syringe Inject 1 mL (60 mg total) under the skin every 6 (six) months Active aspirin 81 mg enteric coated tablet Take 1 tablet (81 mg total) by mouth daily Active multivitamin tablet daily Active Wixela Inhub 250-50 mcg/dose diskus inhaler [...] day 180 tablet 3 02/04/20 25 Active mirtazapine (REMERON) 7.5 mg tablet Take 1 tablet (7.5 mg total) by mouth nightly 04/26/20 25 Active potassium chloride (KLOR-CON) 20 mEq packet Take 1 packet (20 mEq total) by mouth 2 (two) times a day Dissolve each packet in at least 4 ounces (120 mL) of cold water or other beverage prior to administrat ion. 60 packet 11 05/31/20 25 026 Active furosemide (LASIX) 20 mg tabletIndications :Pleural effusion associated with pulmonary infection Take 2 tabs (40 mg) in the am and one tab (20 mg) in the pm. 270 tablet 3 05/31/20 25 Active levothyroxine (SYNTHROID) 75 mcg tablet Take 1 tablet (75 mcg total) by mouth daily 05/31/20 25 Active levothyroxine (SYNTHROID) 50 mcg tablet 07/18/19 23 025 Discontinued(N o longer taking - Do not display on AVS) pantoprazole DR (PROTONIX) 40 mg EC tablet Take 1 tablet (40 mg total) by mouth daily 07/21/ 025 Discontinued(N o longer taking - Do not display on AVS) apixaban (ELIQUIS) 5 mg tablet Take 1 tablet (5 mg total) by mouth 2 (two) times a day 01/25/20 025 Discontinued(T herapy completed) furosemide (LASIX) 20 mg tabletIndications :Pleural effusion associated with pulmonary infection Take 1 tablet (20 mg total) by mouth 2 (two) times a day 180 tablet 1 05/10/20 25 025 Discontinued(R eorder) potassium chloride ER (KLOR-CON) 20 mEq CR tablet Take 1 tablet (20 mEq total) by mouth daily 90 tablet 3 05/13/20 025 Discontinued Active Problems Problem Noted Date Diagnosed Date Cardiac pacemaker in situ 02/09/2025 Overview (02/09/2025): Medtronic Micra AV2 Leadless Pacemaker. Dx; CHB. DOI 12/09/2024-[place], [place]. [facility] remote. Cardiac resynchronization th erapy pacemaker (PACKAGING DESIGN ENGINEER-P) in place 03/19/2024 Aftercare following right [...] total fan radiation, radiotherapy in 1975 at [facility] in the management of Hodgkin's disease. Records were unavailable. Right partial breast radiotherapy, 50.4 Gy in 28 fractions, from 01/10/2020 thru 02/16/2020. Carcinoma of upper-outer sonia drant of right breast in female, estrogen receptor positive 12/08/2019 Overview (03/30/2020): Pathological stage IA ER/DC positive, HER2 negative [...] stage unknown. She received radiation therapy at [facility] with what from her description sounded like [...] (09/16/2018): Added automatically from request for surgery [id number] Dizziness 07/09/2018 H/O sinus bradycardia 04/16/2018 Pleural [...] Encounters Date Type Department Care Team Description 06/23/2025 1:30 PM LIGHTER Office Visit [facility] Cardiology [address] [place] [address] [place] [phone] Rosa Mathias NP History of recent pneumonia (Primary Dx); Dyspnea on exertion; Nonischemic cardiomyopathy (HCC); Chronic heart failure with preserved ejection fraction; CHB (complete heart block); Cardiac pacemaker in situ; History of mitral valve repair 06/23/2025 Telephone [facility]iology [address] [place] [address] [place] [phone] Rosa Mathias NP imaging order 06/22/2025 10:15 AM LIGHTER Ancillary Procedure [facility]iology [address] [place] [address] [place] [phone] CHB (complete heart block); Cardiac pacemaker in situ 06/22/[address] [place] [phone] Rosa Mathias NP 06/08/[address] [place] [phone] Rosa Mathias NP Appointment Reminder Call 06/03/2025 3:53 PM LIGHTER - 06/03/2025 11:59 PM LIGHTER Hospital Encounter [address] [phone] Discharge Disposition: Discharge to home or self care 05/27/2025 2:30 PM LIGHTER Lab [address] [phone] 05/24/2025 Orders Only [facility]iology [address] [place] [address] [place] [phone] Samuel Fleming MD 05/13/2025 Telephone [facility]iology [address] [place] [address] [place] [phone] Rosa Mathias NP 05/12/2025 2:00 PM LIGHTER Office Visit [facility] [address] [place] [address] [place] [phone] Rosa Mathias NP Nonischemic cardiomyopathy (HCC) (Primary Dx); Chronic heart failure with preserved ejection fraction; Lipid screening; S/P placement of leadless cardiac pacemaker; Deep vein thrombosis (DVT) of left upper extremity, unspecified chronicity, unspecified vein (HCC); History of mitral valve repair; Moderate aortic stenosis by prior echocardiogram 04/28/2025 Telephone [facility]iology [address] [place] [address] [place], [place] [address] [place] [phone] Neto Nayak MD 04/20/2025 Telephone [place] [address] [place] [phone] Rosa Mathias NP Medication Problem 04/14/2025 9:55 AM CDT Lab [address] [phone] 04/14/[address] [place] [phone] Rosa Mathias NP 04/05/2025 11:15 AM CDT Ancillary Procedure [place] [address] [place] [phone] Nonischemic cardiomyopathy (HCC); History of mitral valve repair 04/05/2025 Results Follow-Up [place] [address] [place] [phone] Rosa Mathias NP Transthoracic Echo (TTE) Complete W Doppler/CF 03/31/[address] [place] [phone] Vivek Ruiz MD 03/30/2025 Telephone [place] [address] [place] [phone] Rosa Mathias NP Foot Swelling; Joint Swelling from Last 3 Months Surgical History Surgery [...] on file Legal Sex Female 12:19 AM LIGHTER Gender Identity Not on file Sexual Orientation [...] Comments Blood Pressure 154/70 06/23/2025 1:37 PM LIGHTER Pulse 52 06/23/2025 1:37 PM LIGHTER Temperature 36.6 C (97.8 F) 01/26/2025 8:41 AM CDT Respiratory Rate 16 01/26/2025 8:41 AM CDT Oxygen Saturation 99% 06/23/2025 1:37 PM LIGHTER Inhaled Oxygen Concentration - - Weight 50.8 kg (112 lb) 06/23/2025 1:37 PM LIGHTER Height 162.6 cm (5' 4) 06/23/2025 1:37 PM LIGHTER Body Mass Index 19.22 06/23/2025 1:37 PM LIGHTER Plan of Treatment Health Maintenance Due Date [...] 07/02/2023, 02/29/2020 Medical Devices Implanted Type Area Breaker Tender Device Identifier Shelf Expiration Date Model / Serial / Lot Bard Peripheral Vascular [id number] Ultraclip Bard 17ga 10cm 2 Trigger Permanent Ultrasound - [id number] - [id number] Implanted:Qty: 1 on 10/22/2019 by Anthony Ambrosio MD at [facility] Breast Right: Breast Bard Peripheral Vascular 05/03/2022 [id number] / [id number] / [employer] 8tc/52 Tendril Sts 6fr 52cm Is-1 Connector Active Fixation Bipolar Soft - [id number] - [id number] Implanted:Qty: 1 on 10/15/2018 by Jeffrey Stafford MD at [facility] Lead [employer] [id number] 09/03/2021 2088TC/52 / [id number] / [employer] 2088tc/46 Tendril Sts 6fr 46cm Is-1 Connector Bipolar Active Fixation - [id number] - [id number] Implanted:Qty: 1 on 10/15/2018 by Jeffrey Stafford MD at [facility] Lead [employer] [id number] 05/06/20218TC/46 / [id number] / [employer] 1458q/86 Quartet 5fr [id number] 4 Electrode Is-4 Connector Steerable Tip - [id number] - [id number] Implanted:Qty: 1 on 10/15/2018 by Jeffrey Stafford MD at [facility] Lead [employer] [id number] 09/03/2021 1458Q/86 / [id number] / [employer] [id number] Quadra Allure Mp Rf 82m49ha Is4-Llll Is-1 Connector Thk6mm - [id number] - [id number] Implanted:Qty: 1 on 10/15/2018 by Jeffrey Stafford MD at [facility] Pacemaker [employer] [id number] 03/06/2020 [id number] / [id number] / Daig Yue/[employer] [id number] Angio-Seal Vip Bondek-Plus 6fr .035in 70cm Hemostatic Latex Free - [id number] Implanted:Qty: 1 on 09/23/2018 by Vivek Ruiz MD at [facility] Da[employer] 06/05/2019 [id number] / / [id number] Depuy Orth[employer] [id number] [place] 52mm Sector Hip Shell Acetabular Gription Sterile Latex Free - [id number] Implanted:Qty: 1 on 08/27/2021 by Saul Marquez MD at [facility] Right: Hip [employer] 03/06/2031 [id number] / / [id number] [employer] [id number] [place] 52mm 36mm Hip 10d +4mm Liner Acetabular Altrx Sterile Latex Free - [id number] Implanted:Qty: 1 on 08/27/2021 by Saul Marquez MD at [facility] Right: Hip [employer] 07/06/2026 [id number] / / [id number] [employer] [id number] [place] 6.5mm 35mm Acetabular Cancellous Screw Bone Sterile - [id number] Implanted:Qty: 1 on 08/27/2021 by Saul Marquez MD at [facility] Right: Hip [employer] 06/05/2031 0 / / [id number] [employer] [id number] Actis 99mm Collar Hip 2 Standard Offset Stem Femoral - [id number] Implanted:Qty: 1 on 08/27/2021 by Saul Marquez MD at [facility] Right: Hip [employer] 05/06/2028 [id number] / / [id number] [employer] [id number] Articul/Juma 36mm Cementless M Specification No Skirt Maori Neck Latex Free - [id number] Implanted:Qty: 1 on 08/27/2021 by Saul Marquez MD at [facility] Right: Hip [employer] 08/06/2025 [id number] / / [id number] Procedures Procedure Name Priority Date/Time Associated Diagnosis Comments DEVICE CHECK - REMOTE Routine 06/22/2025 10:37 AM LIGHTER CHB (complete heart block) Cardiac pacemaker in situ EGFR Routine 05/27/2025 2:42 PM LIGHTER BASIC METABOLIC PANEL Routine 05/27/2025 2:42 PM LIGHTER CARDIOLOGY DOCUMENT SCAN Routine 05/19/2025 1:50 PM LIGHTER CARDIOLOGY DOCUMENT SCAN Routine 05/18/2025 1:47 PM LIGHTER POCT LIPID PANEL Routine 05/12/2025 2:07 PM LIGHTER Lipid screening EGFR Routine 04/14/2025 10:16 AM CDT COMPREHENSIVE METABOLIC PANEL Routine 04/14/2025 10:16 AM CDT TRANSTHORACIC ECHO (TTE) COMPLETE W DOPPLER/CF WO CONTRAST Routine 04/05/2025 12:24 PM CDT Nonischemic cardiomyopathy (HCC) History of mitral valve repair SCREENING MAMMOGRAM BILATERAL W LAWSON Schedule Routine, Read Routine (OP Routine) 06/13/2022 9:56 AM LIGHTER Encounter for screening mammogram for malignant neoplasm of breast HEPATITIS C RNA, QUANTITATIVE, PCR Routine 06/02/2019 11:44 AM LIGHTER from Last 3 Months or Most Recently Relevant to Health Maintenance Results * DEVICE CHECK - REMOTE (06/22/2025 10:37 AM LIGHTER) Anatomical Region Laterality Modality Other Narrative 06/23/2025 9:27 AM LIGHTER Medtronic Micra AV2 Leadless Pacemaker. Dx; CHB. DOI 12/09/2024-[place]. [facility] remote. Routine VDD Pacemaker Remote. Transmission attached. Battery status: 3.11 V V, > 10.0 years remaining battery life to CARLOS. Stable electrode impedance, pacing and sensing thresholds. Presenting rhythm: AM/LAUNDRY AID LAUNDRY AID AM/LAUNDRY AID- 26.3 %, LAUNDRY AID- 73.7 % Medications: Apixaban 5 mg, ASA 81 mg, metoprolol 50 mg See scanned report. Office pacemaker follow up: 9 months [facility] remote f/u 09/28/25. us Neto Nayak MD CV CARDIAC SERVICES PROC EDURES Final Result * eGFR (05/27/2025 2:42 PM LIGHTER) eGFR >90 >=60 mL/min/1. 73 m2 Comment: Interpretive Data [...] interpretive data was last reviewed 2021. Blood 05/27/2025 2:42 PM LIGHTER 05/27/2025 2:49 PM LIGHTER Nati DUARTE LAB BLOOD ORDERABL ES Final Result [facility] 1 [facility] Department of Laboratories [place], [place] [id number] * (ABNORMAL) Basic metabolic panel (05/27/2025 2:42 PM LIGHTER) Sodium 134(L) 135 - 145 mmol/L Potassium, pl 4.3 3.3 - 4.9 mmol/L [facility] ([place]) Chloride 100 97 - 110 mmol/L [facility]) CO2 21(L) 22 - 32 mmol/L [facility] ([place]) Anion gap 13 2 - 15 mmol/L [facility]) BUN 20 6 - 25 mg/dL [facility]) Creatinine 0.72 0.60 - 1.10 mg/dL [facility]) Glucose 96 70 - 199 mg/dL [facility]) Comment: Interpretive Data Fasting glucose [...] interpretive data was last revised 2022. Calcium 9.3 8.5 - 10.3 mg/dL [facility] ([place]) Blood 05/27/2025 2:42 PM LIGHTER 05/27/2025 2:49 PM LIGHTER Nati DUARTE LAB BLOOD ORDERABL ES Final Result [facility] ([place]) 1 [facility] Department [place] [address] * Cardiology Document Scan (05/19/2025 1:50 PM LIGHTER) Anatomical Region Laterality Modality Other Danielle Luciano NP CV CARDIAC SERVICES PROCEDUR ES Final Result * Cardiology Document Scan (05/18/2025 1:47 PM LIGHTER) Anatomical Region Laterality Modality Other Samuel Fleming MD CV CARDIAC SERVICES PROCEDURES F inal Result * (ABNORMAL) POCT lipid panel (05/12/2025 2:07 PM LIGHTER) Cholesterol, POC 128 <200 MG/DL HDL, POC 22(A) >=40 mg/dL Triglycerides, POC 72 <=149 mg/dL LDL Cholesterol POC 92 <=129 mg/dL Chol/HDL Ratio, POC 4.1 NONE Non-HDL Cholesterol, POC 106 NONE mg/dL Cholesterol Total, POC 128 30 - 199 mg/dL Capillary blood 05/12/2025 2 :07 PM LIGHTER Rosa Mathias NP POINT OF CARE TEST [...] MD LAB BLOOD ORDERABLES Fin al Result [facility] ([place]) 1 [facility] Department [place] [address] * Comprehensive metabolic panel (04/14/2025 10:16 AM CDT) Sodium 136 135 - 145 mmol/L [facility] ([place]) Potassium, pl 4.2 3.3 - 4.9 mmol/L [facility] ([place]) Chloride 97 97 - 110 mmol/L [facility] ([place]) CO2 28 22 - 32 mmol/L [facility] ([place]) Anion gap 11 2 - 15 mmol/L [facility] ([place]) BUN 24 6 - 25 mg/dL [facility] ([place]) Creatinine 0.77 0.60 - 1.10 mg/dL [facility] ([place]) Glucose 101 70 - 199 mg/dL [facility] ([place]) Comment: Interpretive Data Fasting glucose [...] LAB BLOOD ORDERABLES Fin al Result [facility]) 1 [facility] Department [place] [address] * TRANSTHORACIC ECHO (TTE) COMPLETE W DOPPLER/CF WO CONTRAST (04/05/2025 12:24 PM CDT) EF Mod BP 53 % CONS SCIMAGE Anatomical Region Laterality Modality Ultrasound 04/05/2025 11:0 8 AM CDT Narrative 04/05/2025 3:08 PM CDT [facility] Cardiology [address] [place] [address] [address] [address] [facility] [address], [place] [address] P:[phone] P:[phone] Echocardiographic Report Patient Name: YUSUF PARISH A : 1960 Study Date: 04/05/2025 11:08:32 AM Sex: F Radio Intelligence Operator: Irina Mahoney)([place]), [facility] Location: [facility] Provider: ROSA MATHIAS Height(Cm): 163 BSA: [...] FINDINGS: Interpretation Site: Exam was interpreted at [facility]. Left Ventricle: Normal left ventricular size. [...] Electronically Signed By: Jose Cruz Betancourt MD, [facility] 04/05/2025 3:07:39 PM CDT Procedure Note Jose Cruz Betancourt MD - 04/05/2025 [facility] Cardiology [address] [facility] [address] [id number] [address] [facility] [address] [place], [place] [address] P:[phone] P:[phone] Echocardiographic Report Patient Name: YUSUF PARISH A : 1960 Study Date: 04/05/2025 11:08:32 AM Sex: F Radio Intelligence Operator: Irina Andrade (Reese)([place]), [facility] [place] Location: [facility] Provider: ROSA MATHIAS Height(Cm): 163 BSA: [...] FINDINGS: Interpretation Site: Exam was interpreted at [facility]. Left Ventricle: Normal left ventricular size. [...] Electronically Signed By: Jose Cruz Betancourt MD, FACC 04/05/2025 3:07:39 PM CDT Rosa Mathias NP CV ECHO PROCEDURES Final Result * Screening Mammogram Bilateral W Lawson (06/13/2022 9:56 AM LIGHTER) Anatomical Region Laterality Modality Breast Bilateral Mammography 06/13/2022 12:5 9 PM LIGHTER Impressions 06/13/2022 12:59 PM LIGHTER There is no mammographic evidence of malignancy. A 1 year screening mammogram is recommended. BI-RADS: 2 - Benign. The patient has been or will be contacted. The patient will be entered into a reminder system with a target due date of 1 year for her next mammogram. Electronically signed by: Prakash Rendon M.D. Narrative 06/13/2022 12:59 PM LIGHTER EXAMINATION: SCREENING MAMMOGRAM BILATERAL W LAWSON ORDERING [...] no suspicious interval change. Hector Pascual MD IM MAMMO PROCEDURES Fin al Result * Hepatitis C (HCV) RNA PCR, quantitative (06/02/2019 11:44 AM LIGHTER) HCV RNA qn Undetected Undetected IUnits/mL [facility] ([place]) Comment: Result in log IU/mL is Undetected. ADDITIONAL INFORMATION The quantification range of this assay is 15 to 100,000,000 IU/mL (1.18 log to 8.00 log IU/mL). Testing was performed using the lester HCV test ([employer] with the lester [id number] System. Test Performed by: [place] [address] Irrigation Service Technician: Raheem Cornejo M.D. Ph.D.; CLIA# [id number] Blood specimen (specimen) 06/02/2019 11:44 AM LIGHTER 06/02/2019 12:08 PM LIGHTER Mer Szymanski MD LAB MICROBIOLOGY - GENE RAL ORDERABLES Final Result [facility] ([place]) 1 [facility] Department [place] [address] from Last 3 Months or Most Recently Relevant to Health Maintenance Insurance MEDICARE IDPA [facility] MEDICARE IDME [facility] Member Subscriber Plan / Payer (Ef fective 2023-Present) Name:Marianela Parishi A Relation to Subscriber:Self Name:Yusuf Parish A Payer ID:[id number] (NA) Type:MEDICAID RISK OTHER Address: [address] [facility] Advance Directives For more information, please contact: [phone] Documents on File Type Date Recorded Patient Escapement Maker Expl anation ADVANCE DIRECTIVE 08/27/2021 9:10 AM Power of Director Environmental-Medical Power of Director Environmental 05/22/2021 2:02 PM ADVANCE DIRECTIVE 10/21/2018 3:46 [...] 9:41 AM 12/23/2017 2:52 AM Care Teams Production Expediter Relationship Specialty Start Date End Date Nati Garcia PA [address] [address] PCP - General Neurosurgery 10/14/24 Sung Do MD Consulting Physician Cardiology 10/16/18 Saul Marquez MD Surgeon Orthopedic Surgery 08/28/21
--- OUTSIDE RECORDS SUMMARY | 2025-06-23 16:30 | XMS_ITS | Encounter Summary ---
Author Organization [facility] Address [address] [facility] [address] [place] [address] Care Team Providers Care Forklift Material Handler Name Role Phone Jeremy St[place] MD Primary Care Provider [phone] Jeremy Stinson MD Primary Care Provider + [phone] Jeremy Stinson MD Primary Care Provider [phone] Antoinette [place] MD Primary Care Prov ider Jeremy Stinson MD Primary Care Provider + [phone] Sung Do MD Unavailable [phone] Mer Szymanski MD Primary Care Provider Sung Do MD Primary Care Provider + Silvano Byrne MD Primary Care Provider [phone] Saul Marquez MD Unavailable [phone] Nati Garcia Primary Care Prov ider Encounter Details Date Type Department Care Team (Late st Contact Info) Description 08/23/2016 Orders Only [facility] Provider, Historical, MD [address] [place] [address] Social History Tobacco Use Types Packs/Day Years Used Date Smoking Tobacco: Never Alcohol Use Standard Drinks/Week Comments No 0 (1 standard drink = 0.6 oz pur e alcohol) Comments Unknown Sex and Gender Information Value Date Recorded Sex Assigned at Not on file Legal Sex Female 12:19 AM FINISHED GOODS PLANNER Gender Identity Not on file Sexual Orientation [...] on filedocumented in this encounter Care Teams Forklift Material Handler Relationship Specialty Start Date End Date Jeremy Stinson MD [address] [place] [address] PCP - General 10/04/16 10/28/16 Jeremy Stinson MD [address] [place] [address] PCP - General 08/29/16 10/03/16 Jeremy Stinson MD [address] [place] [address] PCP - General 12/11/06 08/28/16 Antoinetet [place] MD [address] [place] [address] PCP - General 10/29/16 11/05/16 Jeremy Stinson MD [address] [place] [address] PCP - General 11/06/16 04/29/19 Mer Szymanski MD [address] [place] [address] PCP - General Family Medicine 04/30/19 03/28/20 Sung Do MD [address] [place] [address] PCP - General Cardiology 03/29/20 03/29/20 Silvano Byrne MD [address] [facility] [address] [address] PCP - General Family Medicine 03/30/20 10/13/24 Nati Garcia PA [address] [place] [address] [address] PCP - General Neurosurgery 10/14/24 Sung Do MD [address] [place] [address] Consulting Physician Cardiology 10/16/18 Saul Marquez MD [address] [facility] [address] [place] [address] Surgeon Orthopedic Surgery 08/28/21 documented as of this encounter
--- OUTSIDE RECORDS SUMMARY | 2025-06-23 16:30 | XMS_ITS | Encounter Summary ---
Author Organization [facility] Healthcare Address [address] [place] [address] Care Team Providers Care Electric Deicer Inspector Name Role Phone Jeremy Stinson MD Primary Care Provider + [phone] Sung Do MD Unavailable Mer Szymanski MD Primary Care Provider Sung Do MD Primary Care Provider + Silvano Byrne MD Primary Care Provider [phone] Saul Marquez MD Unavailable [phone] Nati Garcia Primary Care Prov ider Encounter Details Date Type Department Care Team (Late st Contact Info) Description 09/14/2018 Telephone [facility] [address] [place] [address] [place] [id number] [address] Social History Tobacco Use Types Packs/Day Years Used Date Smoking Tobacco: Never Smokeless Tobacco: Never Alcohol Use Standard Drinks/Week Comments No 0 (1 standard drink = 0.6 oz pur e alcohol) Comments No Sex and Gender Information Value Date Recorded Sex Assigned at Not on file Legal Sex Female 12:19 AM PHOTOCOPYING EQUIPMENT MECHANIC Gender Identity Not on file Sexual Orientation Not on file documented as of this encounter Plan of Treatment Not on file documented as of this encounter Visit Diagnoses Not on filedocumented in this encounter Care Teams Electric Deicer Inspector Relationship Specialty Start Date End Date Jeremy Stinson MD [address] [place] [address] PCP - General 11/06/16 04/29/19 Mer Szymanski MD [address] [place] [address] PCP - General Family Medicine 04/30/19 03/28/20 Sung Do MD [address] [place] [address] PCP - General Cardiology 03/29/20 03/29/20 Silvano Byrne MD [address] [address] PCP - General Family Medicine 03/30/20 10/13/24 Nati Garcia PA [address] [address] PCP - General Neurosurgery 10/14/24 Sung Do MD [address] [place] [address] Consulting Physician Cardiology 10/16/18 Saul Marquez MD [address] [address] Surgeon Orthopedic Surgery 08/28/21 documented as of this encounter
--- OUTSIDE RECORDS SUMMARY | 2025-06-23 16:30 | XMS_ITS | Data Portability ---
Author Organization [place] [facility] [facility], Main Office Address [address] [place] [address] Care Team Providers Care Compliance Technician Name Role Phone [facility] [place] Primary Care Provider MATTHEW MURO Referring Provider TYSON FERRARA Referring Provider [phone] Assessment Encounter Date Assessment Date Assessment LastModified by Organization Details LastModified Time 09/11/2021 09/11/2021 labs 09/12 ultrasound results reviewed Reviewed case with nursing and therapy [email or web address] Not available 09/18/2021 16:57:10 09/13/2021 09/13/2021 labs reviewed Urged patient to wear compression hose as she is not wearing them today Reviewed case with nursing and therapy Not available 09/18/2021 17:01:56 09/18/2021 09/18/2021 labs reviewed edema improving Reviewed case with nursing and therapy [email or web address] Not available 09/18/2021 17:06:15 09/21/2021 09/21/2021 D/C 2 tab option for PRN [place] so pt does not exceed APAP limit. [...] for up to 7 days after discharge. [email or web address] Not available 10/06/2021 08:24:31 Plan of Treatment [...] By Organization Details Last Modified Time 09/11/2021 [id number] I spent 30 minutes providing care to the patient today. More than 50% of that time was spent in discussing the expected course of the disease, discussing prognosis, coordinating care and counseling of the patient/family. Not available 09/18/2021 16:57:07 09/13/2021 [id number] I spent 30 minutes providing care to the patient today. More than 50% of that time was spent in discussing the expected course of the disease, discussing prognosis, coordinating care and counseling of the patient/family. Not available 09/18/2021 17:02:37 09/18/2021 [id number] I spent 25 minutes providing care to the patient today. More than 50% of that time was spent in discussing the expected course of the disease, discussing prognosis, coordinating care and counseling of the patient/family. [email or web address] Not available 09/18/2021 17:07:00 09/21/2021 [id number] I spent 26 minutes providing care to the patient today. More than 50% of that time was spent in discussing the expected course of the disease, discussing prognosis, coordinating care and counseling of the patient/family. Not available 09/22/2021 13:12:51 09/25/2021 [id number] I spent 35 minutes providing care to the patient today. More than 50% of that time was spent in discussing the expected course of the disease, discussing prognosis, coordinating care and counseling of the patient/family. [email or web address] Not available 10/06/2021 08:24:37 Reason for Referral None Reported. Results Created Date Observation Date Name Description Value Unit Range Abnormal Flag Note LastModifiedBy Organization Detail LastModifiedTime 09/19/19 22 US, duple x, venou s, extre mity, unila teral No observ ation record ed. [email or web address] Not Available 2021 16:54:31 Result Notes None recorded. Problems Name Problem SNOMED Code Status Onset Date Resolution Date Notes Provider Name and Address Organization Details Recorded Time Constipatio n 19730438 Active 2021 Tom[place] [facility] 2 09:57:59 Postoperati ve pain 778903996 Active 2021 Tom[place] [facility] 2 00:04:47 Osteoarthri tis of right hip joint 1477022770700 07 Active 2021 Tommie Pined[place] [facility] 2 00:04:51 Essential hypertensio n 22527841 Active 2021 Tommie [place] [facility] 2 00:05:00 Asthma 931294919 Active 2021 Tommie [place] [facility] 2 00:05:02 Anemia 286454809 Active 2021 Tommie [place] [facility] 2 00:05:06 Hypothyroid ism 78697062 Active 2021 Tommie [place] [facility] 2 00:05:14 History of malignant neoplasm of breast 108335492 Active 2021 Tommie [place] [facility] 2 00:05:15 Swelling of lower leg 905802520 Active 2021 Tommie Pined[place] [...] Name and Address Organization Details Recorded Time 42998 amitripty line medicatio n Not available Not available Not available 08/28/2021 704 RxNorm Aracely Li [place] [facility] 2 20:07:36 84893 cyclobenz aprine medicatio n Not available Not available Not available 08/28/2021 36108 RxNorm Aracely [place] [facility] 2 20:08:01 03772 diclofena c Not available Not available Not available Not available 08/28/2021 3355 RxNorm Aracely [place] [facility] 2 20:08:06 35934 levofloxa milena medicatio n Not available Not available Not available 08/28/2021 62473 RxNorm Aracely [place] [facility] 2 20:08:13 66057 metaxalon e medicatio n Not available Not available Not available 08/28/2021 15151 RxNorm Aracely [place] [facility] 2 20:08:20 62514 misoprost ol medicatio n Not available Not available Not available 08/28/2021 50655 RxNorm Ar[place]ely [place] [facility] 2 20:08:28 76827 naproxen medicatio n Not available Not available Not available 08/28/2021 7258 RxNorm Ar[place]ely [place] [facility] 2 20:08:37 69972 orphenadr ine Not available Not available Not available Not available 08/28/2021 7715 RxNorm Aracely [place] [facility] 2 20:08:44 57757 rofecoxib medicatio n Not available Not available Not available 08/28/2021 16958 8 RxNorm Aracely [place] [facility] 2 20:08:55 66470 tramadol medicatio n Not available Not available Not available 08/28/2021 03326 RxNorm Aracely [place] [facility] [...] (BMI) Body weight Heart rate Oxygen saturation Respiratory rate Body temperature Systolic And Diastolic Provider Name and Address Organization Details Last Updated DateTime 2 160.02 cm 23.7 kg/m2 77748.9 4 g 69 /min 98 % 24 /min 98 [degF] 126/63 mm[Hg] Tommie [facility] 2 11:32:28 Date Recorded Body height Body mass index (BMI) Body weight Heart rate Oxygen saturation Respiratory rate Body temperature Systolic And Diastolic Provider Name and Address Organization Details Last Updated DateTime 2 160.02 cm 24.1 kg/m2 53038.6 4 g 78 /min 96 % 20 /min 97.2 [degF] 123/63 mm[Hg] Tommie [facility] 2 16:58:35 Date Recorded Body height Heart rate Oxygen saturation Respiratory rate Body temperature Systolic And Diastolic Provider Name and Address Organization Details Last Updated DateTime 2 160.02 cm 93 /min 96 % 18 /min 97.6 [degF] 118/66 mm[Hg] Tommie [facility] 2 17:03:41 Date Recorded Body height Body mass index (BMI) Body weight Heart rate Oxygen saturation Respiratory rate Body temperature Systolic And Diastolic Provider Name and Address Organization Details Last Updated DateTime 2 160.02 cm 23 kg/m2 79399.0 1 g 86 /min 96 % 18 /min 97.5 [degF] 123/72 mm[Hg] [place] [address] [facility], [place], [address] , [facility] 2 11:02:22 Date Recorded Body height Heart rate Oxygen saturation Respiratory rate Body temperature Systolic And Diastolic Provider Name and Address Organization Details Last Updated DateTime 2 160.02 cm 80 /min 97 % 18 /min 97.5 [degF] 112/82 mm[Hg] Tommie Pineda [place] [facility] 08:16:38 Social History Question Answer Notes LastModified by Organizat ion Details LastModified Time Tobacco Smoking Status Never Smoker Tom[place] [facility] 08/31/2021 12:08:40 Do You Have An Advance Directive? Yes [email or web address] Information not available 08/31/2021 Are You Blind Or Do You Have Difficulty Seeing? No [email or web address] Information not available 08/31/2021 What Is Your Code Status? Full Code [email or web address] Information not available 08/31/2021 Are You Deaf Or Do You Have Serious Difficulty Hearing? No [email or web address] Information not available 08/31/2021 Occupation/Forme r Occupation [employer] [email or web address] Information not available 08/31/2021 Able To Care For Self? Yes [email or web address] Information not available 08/31/2021 Live Alone Or With Others? Alone Information not available 08/28/2021 Do You Have A Caregiver? No [email or web address] Information not available 08/31/2021 Do You Have A Medical Power Of Mortar Maker? Yes Sister ISMAEL Mandujano [email or web address] Information not available 08/31/2021 How Many Children Do You Have? 0 [email or web address] Information not available 08/31/2021 What Is Your Relationship Status? [email or web address] Information not available 08/31/2021 Has Tobacco Cessation Counseling Been Provided? No [email or web address] Information not available 08/31/2021 Do You Have Difficulty Walking Or Climbing Stairs? Yes Requires [email or web address] Information not available 08/31/2021 Sex: Unknown Functional Status Question Answer Note LastModified by Organizat ion Details LastModified Time Do you use any illicit or recreational drugs? No [email or web address] Information not available 08/31/2021 What is your level of alcohol consumption? None Information not available 08/31/2021 Are you able to walk independently without assistance or assistive devices? YESASSIST Pt requires wheeled walker and min assist Information not available 08/28/2021 Do you have difficulty doing errands alone? Yes currently prior to surgery no [email or web address] Information not available 08/31/2021 Are you able to care for yourself independently? Yes [email or web address] Information not available 08/31/2021 Do you have difficulty dressing, bathing, grooming, or toileting? Yes Pt requires contact guard assist in grooming and min assist in dressing Information not available 08/28/2021 Mental Status Question Answer Note LastModified by Organization D etails LastModified Time Do you have difficulty concentrating, remembering or making decisions? No [email or web address] Information no t available 08/31/2021 Family History Relationship Description Onset Age of this Age Resolved Age Notes LastModified by Organization Details LastModified Time Paternal Grandmother Primary malignant neoplasm of skin of breast [email or web address] Not available 2021 12:07:31 Father Malignant neoplasm of kidney Not available 2021 12:07:47 Brother Malignant neoplasm of colon [email or web address] Not available 2021 12:08:18 Medical History Condition Response Psychiatric -- Anxiety Disorder Y Osteoarthritis / DJD Y Cardiomyopathy Y Anemia Y Congestive Heart Failure (CHF) Y Cancer -- Breast Y Arrhythmia Y Psychiatric -- Depression Y Headaches Y Asthma Y Hypothyroidism Y Gynecological HistoryNo gynecological history recorded. Obstetrics History GPAL:G 0 P 0 0 0 0 Past Encounters Encounter ID Performer Location Encounter Start Date Encounter Closed Date Diagnosis/Indication Diagnosis SNOMED-CT Code Diagnosis ICD10 Code Diagnosis IMO Codes Diagnosis Note [id number] Damaris Amor DO [address] [address] 08/29/2021 02:15:15 09/09/2021 00:44:23 Osteoarthritis of right hip joint 2252125162 76723 M16.11 s/p right hip replacemen t per dr. gurdeep thacker hip precaution s, prn norco for painasa for dvt prophylaxi stherapy, wound caref/u with ortho as scheduled 09/10 Essential hypertension 57098857 I10 blood pressures have been low since admission - will decrease metoprolol to 25 mg bid with hold parameters , continue lasix 20 mg daily and continue to trend Asthma 222183252 J45.90 9 continue breo daily, prn albuterole ncouraged ISwill have respirator y follow Anemia 570751195 D64.9 continue iron replacemen t, trend cbc Hypothyroidism 70675739 E03.9 presumed stable - continue synthroid Constipation 39190365 K5 9.00 continue bid senna s, additional meds available via standing ordres History of malignant neoplasm of breast 184572115 Z85.3 continue femara - outpt f/u with oncology [id number] TOMMIE PINEDA NP [facility] [address] [place] [address] 08/31/2021 07:28:31 09/11/2021 09:18:30 Osteoarthritis of right hip joint 9564375661 41768 M16.11 s/p right hip replacemen t per dr. gurdeep thacker hip precaution s, prn norco for painasa for dvt prophylaxi stherapy, wound caref/u with ortho as scheduled 3 Essential hypertension 44383259 I10 blood pressures have been low since admission - will decrease metoprolol to 25 mg bid with hold parameters , continue lasix 20 mg daily and continue to trend Asthma 857972768 J45.90 9 continue breo daily, prn albuterole ncouraged ISRT without concerns Anemia 480254640 D64.9 continue iron replacemen t, trend cbc Hypothyroidism 53723154 E03.9 presumed stable - continue synthroid Constipation 02457896 K5 9.00 continue bid senna s, additional meds available via standing ordres History of malignant neoplasm of breast 020675478 Z85.3 continue femara - outpt f/u with oncology [id number] TOMMIE PINEDA NP [facility] [place] [address] 09/03/2021 09:57:19 09/11/2021 09:19:48 Constipation 57787737 K59.00 Added Senna plus PRN Postoperative pain 21336 9007 G89.18 increased the amount of time between [place]. Pt. v/u and is agreeable with plan Osteoarthr itis of right hip joint 7052723634 37203 M16.11 s/p right hip replacemen t per dr. gurdeep thacker hip precaution s, prn norco for painasa for dvt prophylaxi stherapy, wound caref/u with ortho as scheduled 3 Essential hypertension 44966506 I10 blood pressures have been low since admission - will decrease metoprolol to 25 mg bid with hold parameters , continue lasix 20 mg daily and continue to trendblood pressure reviewed and remain stable Asthma 868641778 J45.90 9 continue breo daily, prn albuterole ncouraged ISRT without concerns Anemia 486686956 D64.9 continue iron replacemen t, trend cbc; SEE PE Hypothyroidism 73212923 E03.9 presumed stable - continue synthroid History of malignant neoplasm of breast 574884788 Z85.3 continue femara - outpt f/u with oncology At [facility] ed risk of polypharmacy 263909789 Z91.89 continue with Vitamin C. Monitor side effects of polypharma cy. Vitamin D deficiency 347 29350 E55.9 continue with cholecalci ferol [id number] TOMMIE PINEDA NP [facility] [address] [place] [address] 09/05/2021 23:20:25 09/11/2021 09:20:32 Constipation 84642905 K59.00 Continue with PRN senna pluse Postoperative pain 36522 9007 G89.18 increased the amount of time between [place]. Pt. v/u and is agreeable with plan Osteoarthr itis of right hip joint 1170525410 19797 M16.11 s/p right hip replacemen t per dr. gurdeep thacker hip precaution s, prn norco for painasa for dvt prophylaxi stherapy, wound caref/u with ortho as scheduled 09/10 Essential hypertension 64688275 I10 blood pressures have been low since admission - will decrease metoprolol to 25 mg bid with hold parameters , continue lasix 20 mg daily and continue to trendblood pressure stable Asthma 280131752 J45.90 9 continue breo daily, prn albuterole ncouraged ISRT without concerns Anemia 610385766 D64.9 continue iron replacemen t, trend cbc; SEE PE Hypothyroidism 09578052 E03.9 presumed stable - continue synthroid History of malignant neoplasm of breast 371059464 Z85.3 continue femara - outpt f/u with oncology At [facility] ed risk of polypharmacy 132535594 Z91.89 continue with Vitamin C. Monitor side effects of polypharma cy. 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 gurdeep thacker hip precaution s, prn norco for pain - increasing dose to 1-2 tabs every 4 hours prnasa for dvt prophylaxi stherapy, wound caref/u with ortho as scheduled 09/10 Essential hypertension 37895121 I10 decreased metoprolol to 25 mg bid with hold parameters on admission here. continue lasix 20 mg daily (increasin g to 40 mg daily x 3 days) and continue to trend Asthma 391874506 J45.90 9 continue breo daily, prn albuterole ncouraged ISrespirat ory therapy following - respirator y status is stable Anemia 276532826 D64.9 continue iron replacemen t, trend cbc Hypothyroidism 93090477 E03.9 presumed stable - continue synthroid Constipation 20691114 K5 9.00 continue bid senna s, additional meds available via standing orders History of malignant neoplasm of breast 400899586 Z85.3 continue femara - outpt f/u with oncology Postoperative pain 78996 9007 G89.18 [id number] [facility] [address] [place] [address] 09/11/2021 11:31:50 09/19/2021 11:35:49 Swelling of lower leg 069243981 R22.41 3/4 venous ultrasound - negativeel evate the legs, 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 gurdeep thacker hip precaution s, prn norco for pain - increasing dose to 1-2 tabs every 4 hours prnasa for dvt prophylaxi stherapy, wound caref/u with ortho as scheduled 09/10 Essential hypertension 18807823 I10 decreased metoprolol to 25 mg bid with hold parameters on admission here. continue lasix 20 mg daily (increasin g to 40 mg daily x 3 days) and continue to trendblood pressure remained stable Asthma 990763423 J45.90 9 continue breo daily, prn albuterole ncouraged ISrespirat ory therapy following - respirator y status is stable Anemia 821606834 D64.9 continue iron replacemen t, trend cbc Hypothyroidism 02022965 E03.9 presumed stable - continue synthroid Constipation 66519246 K5 9.00 continue bid senna s, additional meds available via standing orders History of malignant neoplasm of breast 388487391 Z85.3 continue femara - outpt f/u with oncology Postoperative pain 69524 9007 G89.18 increased the amount of time between [place].Pt. 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 continue lasix 20 mg daily continue to trendblood pressure remained stable Asthma 946330544 J45.90 9 continue breo daily, prn albuterole ncouraged ISrespirat ory therapy following - respirator y status is stable Anemia 618395978 D64.9 continue iron replacemen t, trend cbc Hypothyroidism 19061506 E03.9 presumed stable - continue synthroid Constipation 55642433 K5 9.00 continue bid senna s, additional meds available via standing orders History of malignant neoplasm of breast 489175867 Z85.3 continue femara - outpt f/u with oncology Postoperative pain 63497 9007 G89.18 increased the amount of time between [place].Pt. 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 gurdeep thacker hip precaution s, prn norco for pain - increasing dose to 1-2 tabs every 4 hours prnasa for dvt prophylaxi stherapy, wound caref/u with ortho as scheduled Essential hypertension 21641110 I10 decreased metoprolol to 25 mg bid with hold parameters on admission here. continue lasix 20 mg daily continue to trendblood pressure remained stable Asthma 690215277 J45.90 9 continue breo daily, prn albuterole ncouraged ISrespirat ory therapy following - respirator y status is stable Anemia 369228221 D64.9 continue iron replacemen t, trend cbc Hypothyroidism 90179661 E03.9 presumed stable - continue synthroid Constipation 02578281 K5 9.00 continue bid senna s, additional meds available via standing orders- patient did report mild constipati on today but she deferred any daily stool softeners at this time. History of malignant neoplasm of breast 794075057 Z85.3 continue femara - outpt f/u with oncology Postoperative pain 49140 9007 G89.18 increased the amount of time between [place].Pt. v/u and is agreeable with plan [id number] Damaris Amor, DO PAC [facility] and Therapy [address] [place] [address] 09/21/2021 10:46:05 09/24/2021 10:33:40 Swelling of lower leg 295637903 R22.41 3/4 venous ultrasound - negative.I mproved. Continue compressio n and elevate legs at rest. Osteoarthr itis of right hip joint 2379032672 26311 M16.11 s/p right hip replacemen t per dr. gurdeep thacker hip precaution s.Schedule d APAP for pain. Decrease PRN [place] to 1 tab PRN so as not to exceed daily APAP limit. Pt has never requested 2 tabs anyway.Con tinue asa for dvt prophylaxi sContinue therapy, wound caref/u with ortho as scheduled Essential hypertension 55779989 I10 Decreased metoprolol to 25 mg bid with hold parameters on admission here.Stabl e. Continue Lasix & Metoprolol .Continue to trend blood pressures, monitor lytes and renal function, and adjust meds as clinically indicated. Asthma 511123886 J45.90 9 Stable. Continue breo daily, prn albuterole ncouraged ISrespirat ory therapy following - respirator y status is stable Anemia 530183581 D64.9 Stable. Continue iron replacemen t, trend cbc Hypothyroidism 31765469 E03.9 presumed stable - continue synthroid Constipation 92468591 K5 9.00 Stable. Continue PRN senna s. History of malignant neoplasm of breast 347670389 Z85.3 Stable. Continue Femara - outpt f/u with oncology [id number] TOMMIE PINEDA, BUTCH PAC [facility] Therapy [address] [place] [address] 09/25/2021 16:44:38 10/14/2021 07:44:32 Osteoarthritis of right hip joint 1066287995 01518 M16.11 s/p right hip replacemen t per dr. gurdeep thacker hip precaution s.Schedule d APAP for pain. continue with PRN [place] (pt. will go home with her supply here)Matti nue asa for dvt prophylaxi sContinue therapy, wound care at home with home healthf/u with ortho as scheduled Essential hypertension 51446927 I10 Stable with decrease in metoprolol . Continue Lasix & Metoprolol . Continue to trend blood pressures, monitor lytes and renal function, and adjust meds as clinically indicated. Swelling of lower leg 44 4257055 R22.41 3/4 venous ultrasound - negative.I mproved. Continue compressio n and elevate legs at rest. - pt. has been doing a good job at this Asthma 250356898 J45.90 9 Stable. Continue breo daily, prn albuterole ncouraged ISrespirat ory therapy following - respirator y status is stable Anemia 513723769 D64.9 Stable. Continue iron replacemen t, trend cbc Hypothyroidism 84548802 E03.9 presumed stable - continue synthroid Constipation 88025917 K5 9.00 Stable. Continue PRN senna s. History of malignant neoplasm of breast 316937011 Z85.3 Stable. Continue Femara - outpt f/u with oncology Health Concerns Section Related Observation LastModified by Organization Detai ls LastModified Time None Recorded Concern Status LastModified by Organization Details LastModified Time None Recorded Advance Directives Directive Y: Payers Insurance Date Sequence Insurance Name Policy Number Policy Benjamin Covered Member ID Benjamin Member ID Guarantor Name 10/14/2021 2 [place] [employer] [place] [employer] Mariam Parish [id number] Mariam Parish 09/06/2021 1 [place] ([place] Mariam Parish [id number] Mariam Parish Notes Date Note Type Note Provider Name and Address Organization Details Recorded Time 09/11/2021 text/html ROS as noted in the HPI 61 y/o pleasant white female admitted to [facility] for post acute rehab subsequent to an inpatient stay at [facility] 08/27-08/28/21 for an elective right hip [...] therapy deny any other concerns this time [facility] 09/18/2021 16:57:25 09/13/2021 text/html ROS as noted in the HPI 61 y/o pleasant white female admitted to [facility] for post acute rehab subsequent to an inpatient stay at [facility] 08/27-08/28/21 for an elective right hip [...] other concerns or complaints at this time. [facility] 09/18/2021 17:02:50 09/18/2021 text/html ROS as noted in the HPI 61 y/o pleasant white female admitted to [facility] for post acute rehab subsequent to an inpatient stay at [facility] 08/27-08/28/21 for an elective right hip [...] any concerns or complaints at this time. [facility] 09/18/2021 17:07:12 09/21/2021 text/html ROS as noted in the [facility] F/U advanced OA s/p elective right hip [...] not offer any concerns. Jaye Ma, BUTCH [address] [facility], [place], [address], [facility] 09/22/2021 13:13:03 09/25/2021 text/html ROS [...] reports that home visit went well. Tommie Miriam casiano, [facility] 10/06/2021 08:24:58 OBGyn Episode No OBEpisode recorded.
--- OUTSIDE RECORDS SUMMARY | 2025-06-23 16:31 | XMS_ITS | Encounter Summary ---
Author Organization [facility] Address [address] [place] [address] Phone Care Team Providers Care Surgical Territory Manager Name Role Phone SymoneJuan David MD Unavailable Hector Rendon MD Unavailable [phone] Rohit Cardoso MD Unavailable Sung Do MD Unavailable [phone] Silvano Byrne MD Primary Care Provider [phone] Shawn Alves MD Unavailable Nati Garcia [facility] Primary Care Pro vider Reason for Visit * Reason Comments Medication Refill Encounter Details Date Type Department Care Team (Late st Contact Info) Description 07/09/2020 Refill [facility] [address] [place] [address] Silvano Byrne MD [address] [place] [address] Medication Refill Social History Tobacco Use Types [...] 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 No / Unsure 07/10/2020 1:19 PM QUALITY INTERN documented as of this encounter Miscellaneous Notes [...] 6 days ago New onset of headaches [facility] Medical [facility] - Family Medicine - Silvano Longo MD 1 month ago Nonischemic cardiomyopathy (HCC) [facility] Family [facility] - Silvano Longo MD 4 months ago Chronic combined systolic and diastolic congestive heart failure (HCC) [facility] Family [facility] - Silvano Longo MD Upcoming Appointments Future Appointments Today [facility] CT, [facility] In 2 months Ankita Villafuerte APN, DIESEL ENGINE ENGINEER [facility] [place] [facility], [facility] In 2 months [facility] CC INFUSION CHR3 [facility] [place] [facility], [facility] LEARNING DISABILITIES 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 Showing future appointments within next 90 days with a meds authorizing provider and meeting all other requirements Passed - Last BP in normal range BP Readings from Last 1 Encounters: 07/04/20 112/60 ITY INTERN documented in this encounter Plan of Treatment Upcoming Encounters Date Type Department Care Team (Late st Contact Info) Description 08/03/2025 1:30 PM QUALITY INTERN Office Visit [facility] Medical [facility] - Cardiology - [place] [address] [place] [address] Nati Garcia, DEEDEE [address] [place] [address] Nissa Monzon MD 2 [facility], [address] [address] 08/30/2025 11:00 AM QUALITY INTERN Office Visit [facility] - Primary Care - [place] [address] [place] [address] Nati Garcia, DEEDEE [address] [place] [address] 10/25/2025 11:00 AM CDT Office Visit [facility] Oncology Services [address] [place] [address] Hector Rendon MD [address] [place] [address] Discharge Disposition: Discharged to home or Selfcare 10/25/2025 11:30 AM CDT Clinical Support [facility] Oncology Services [address] [place] [address] Hector Rendon MD [address] [place] [address] Discharge Disposition: Discharged to home or Selfcare documented as of this encounter Visit Diagnoses Not on filedocumented in this encounter Care Teams Surgical Territory Manager Relationship Specialty Start Date End Date Silvano Byrne MD [address] [address] PCP - General Family Medicine 02/25/20 03/23/24 Nati Garcia PAC [address] [address] PCP - General Physician Surgical Territory Manager 03/24/24 Juan David Ashby MD Consulting Physician General Surgery 12/27/19 Hector Rendon MD [address] [place] [address] Consulting Physician Medical Oncology 12/27/19 Rohit Cardoso MD [address] [place] [address] Consulting Physician Radiation Oncology 12/27/19 Sung Do MD [address] [facility] [address] [place] [address] Consulting Physician Cardiovascular Disease - Cardiology 12/28/19 Shawn Alves MD #[address] [address] Consulting Physician Colon and Rectal Surgery 05/10/22 documented as of this encounter
--- OUTSIDE RECORDS SUMMARY | 2025-06-23 16:31 | XMS_ITS | Encounter Summary ---
Author Organization [facility] Address [address] [place] [address] Phone Care Team Providers Care Social Service Coordinator Name Role Phone Symone Juan David Fisher MD Unavailable Hector Rendon MD Unavailable Rohit Cardoso MD Unavailable Sung Do MD Unavailable [phone] Silvano Byrne MD Primary Care Provider Shawn Alves MD Unavailable Nati Garcia [facility] Primary Care Pro vider Reason for Visit * Reason Comments Medication Refill Encounter Details Date Type Department Care Team (Late st Contact Info) Description 05/11/2021 [facility] [address] [place] [address] Hector Rendon MD [address] [place] [address] Medication Refill Social History Tobacco [...] 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 Not on [...] st Contact Info) Description 08/03/2025 1:30 PM WORKERS' COMPENSATION COMMISSIONER Office Visit [facility] - Cardiology - [place] [address] [place] [address] Nati Garcia PAC [address] [place] [address] Nissa Monzon MD [address] [address] 08/30/2025 11:00 AM WORKERS' COMPENSATION COMMISSIONER [facility] - Primary Care - [place] [address] [place] [address] Nati Garcia, [facility] [address] [place] [address] 10/25/2025 11:00 AM CDT Office Visit [facility] Oncology Services [address] [place] [address] Hector Rendon MD [address] [place] [address] Discharge Disposition: Discharged to home or Selfcare 10/25/2025 11:30 AM CDT Clinical Support [facility] Oncology Services [address] [place] [address] Hector Rendon MD [address] [place] [address] Discharge Disposition: Discharged to home or Selfcare [...] documented as of this encounter Care Teams Social Service Coordinator Relationship Specialty Start Date End Date Silvano Byrne MD [address] [facility] [address] [place] [address] PCP - General Family Medicine 02/25/20 03/23/24 Nati Garcia, PAC [address] [address] PCP - General Physician Bleach Plant Operator 03/24/24 Juan David Ashby MD Consulting Physician General Surgery 12/27/19 Hector Rendon MD [address] [place] [address] Consulting Physician Medical Oncology 12/27/19 Rohit Cardoso MD [address] [place] [address] Consulting Physician Radiation Oncology 12/27/19 Sung Do MD [address] [address] Consulting Physician Cardiovascular Disease - Cardiology 12/28/19 Shawn Alves MD #[address] [address] Consulting Physician Colon and Rectal Surgery 05/10/22 documented as of this encounter
--- OUTSIDE RECORDS SUMMARY | 2025-06-23 16:31 | XMS_ITS | Encounter Summary ---
Author Organization [facility] Address [address] [place] [address] Care Team Providers Care Warehouse Processor Name Role Phone Jeremy Stinson MD Primary Care Provider [phone] Sung Do MD Unavailable Mer Szymanski MD Primary Care Provider Sung Do MD Primary Care Provider + Silvano Byrne MD Primary Care Provider [phone] Saul Marquez MD Unavailable [phone] Nati Garcia Primary Care Prov ider Encounter Details Date Type Department Care Team (Late st Contact Info) Description 10/20/2018 Telephone [facility] Cardiac Testing [address] [facility] [address] [place] [address] Rowan Correa RN Social History Tobacco Use Types Packs/Day Years Used Date Smoking Tobacco: Never Smokeless Tobacco: Never Alcohol Use Standard Drinks/Week Comments No 0 (1 standard drink = 0.6 oz pur e alcohol) Comments No Sex and Gender Information Value Date Recorded Sex Assigned at Not on file Legal Sex Female 12:19 AM EFFERVESCENT SALTS COMPOUNDER Gender Identity Not on file Sexual Orientation Not on file documented as of this encounter Plan of Treatment Not on file documented as of this encounter Visit Diagnoses Not on filedocumented in this encounter Care Teams Warehouse Processor Relationship Specialty Start Date End Date Jeremy Stinson MD [address] [place] [address] PCP - General 11/06/16 04/29/19 Mer Szymanski MD [address] [place] [address] PCP - General Family Medicine 04/30/19 03/28/20 Sung Do MD [address] [place] [address] PCP - General Cardiology 03/29/20 03/29/20 Silvano Byrne MD [address] [place] [address] [address] PCP - General Family Medicine 03/30/20 10/13/24 Nati Garcia PA 2 [place] [facility] [address] [place] [address] PCP - General Neurosurgery 10/14/24 Sung Do MD [address] [place] [address] Consulting Physician Cardiology 10/16/18 Saul Marquez MD 2 [place] [facility] [address] [place] [address] Surgeon Orthopedic Surgery 08/28/21 documented as of this encounter
--- OUTSIDE RECORDS SUMMARY | 2025-06-23 16:31 | XMS_ITS | Encounter Summary ---
Author Organization [facility] Address [address] [place] [address] Phone Care Team Providers Care Checker Name Role Phone SymoneJuan David MD Unavailable Hector Rendon MD Unavailable Rohit Cardoso MD Unavailable Sung Do MD Unavailable [phone] Silvano Byrne MD Primary Care Provider Shawn Alves MD Unavailable Nati Garcia [facility] Primary Care Pro vider Reason for Visit * Reason Comments Medication Refill Encounter Details Date Type Department Care Team (Late st Contact Info) Description 02/08/2021 Refill [facility] - [facility] Medicine - [place] Guido Staples [address] [place] [address] Silvano Byrne MD [address] [place] [address] Medication Refill Social History Tobacco Use Types [...] Date 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 Showing future appointments within next 90 days and meeting all other requirements documented in this encounter Plan of Treatment Upcoming Encounters Date Type Department Care Team (Late st Contact Info) Description 08/03/2025 1:30 PM RESERVES CLERK Office Visit [facility] - Cardiology - [place] [address] [place] [address] Nati Garcia, PAC [address] [place] [address] Nissa Monzon MD [address] [address] 08/30/2025 11:00 AM RESERVES CLERK Office Visit [facility] - Primary Care - [place] [address] [place] [address] Nati Garcia, PAC [address] [place] [address] 10/25/2025 11:00 AM CDT Office Visit [facility] Oncology Services [address] [place] [address] Hector Rendon MD [address] [place] [address] Discharge Disposition: Discharged to home or Selfcare 10/25/2025 11:30 AM CDT Clinical Support [facility] Oncology Services [address] [place] [address] Hector Rendon MD [address] [place] [address] Discharge Disposition: Discharged to home or Selfcare documented as of this encounter Visit Diagnoses Not on filedocumented in this encounter Care Teams Checker Relationship Specialty Start Date End Date Silvano Byrne MD [address] [facility] [address] [place] [address] PCP - General Family Medicine 02/25/20 03/23/24 Nati Garcia PAC #[address] [address] PCP - General Physician Research Specialist 03/24/24 Juan David Ashby MD Consulting Physician General Surgery 12/27/19 Hector Rendon MD [address] [place] [address] Consulting Physician Medical Oncology 12/27/19 Rohit Cardoso MD [address] [place] [address] Consulting Physician Radiation Oncology 12/27/19 Sung Do MD [address] [address] Consulting Physician Cardiovascular Disease - Cardiology 12/28/19 Shawn Alves MD #[address] [address] Consulting Physician Colon and Rectal Surgery 05/10/22 documented as of this encounter
--- OUTSIDE RECORDS SUMMARY | 2025-06-23 16:31 | XMS_ITS ---
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 Dx; CHB. DOI 12/09/2024-[place], [place]. Carelink remote. Esophageal stenosis 01/05/2024 History [...] total fan radiation, radiotherapy in 1975 at [facility] in the management of Hodgkin's disease. Records were unavailable. Right partial breast radiotherapy, 50.4 Gy in 28 fractions, from 01/10/2020 thru 02/16/2020. Personal history of Hodgkin lymphoma 12/08/2019 Overview (02/16/2020): Diagnosed in 1976 at the age of 16 years with Hodgkin's disease with a high right neck presentation, subtype in stage unknown. She received radiation therapy at [place] with what from her description sounded like [...] from 12/28/2019:Stage IA(pT1b, pN0(sn), cM0, G2, ER+, KS+, HER2-, Oncotype DX score: 17) - Signed by Rohit Cardoso MD on 12/28/2019 Overview (02/16/2020): Pathological stage IA ER/KS positive, HER2 negative an Oncotype DX score [...]
--- OUTSIDE RECORDS SUMMARY | 2025-06-23 16:31 | XMS_ITS | Encounter Summary ---
Author Organization [facility] Address [address] [place] [address] Phone Care Team Providers Care Electric Arc Furnace Operator Name Role Phone Symone Juan David Fisher MD Unavailable Hector Rendon MD Unavailable [phone] Rohit Cardoso MD Unavailable Sung Do MD Unavailable Silvano Byrne MD Primary Care Provider Shawn Alves MD Unavailable Nati Garcia [facility] Primary Care Pro vider Reason for Visit * Reason Comments Medication Refill Encounter Details Date Type Department Care Team (Late st Contact Info) Description 07/29/2021 Refill [facility] - Internal Medicine - [place] Guido Staples [address] [place] [address] Silvano Byrne MD [address] [place] [address] Medication Refill Social History Tobacco Use Types [...] 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 Showing future appointments within next 90 days and meeting all other requirements ER HELPER documented in this encounter Plan of Treatment Upcoming Encounters Date Type Department Care Team (Late st Contact Info) Description 08/03/2025 1:30 PM TINNER HELPER Office Visit [facility] - Cardiology - [place] [address] [place] [address] Nati Garcia, PAC [address] [place] [address] Nissa Monzon MD 2 [facility] [address] [address] 08/30/2025 11:00 AM TINNER HELPER Office Visit [facility] - Primary Care - [place] [address] [place] [address] Nati Garcia, PAC [address] [place] [address] 10/25/2025 11:00 AM CDT Office Visit [facility] Oncology Services [address] [place] [address] Hector Rendon MD [address] [place] [address] Discharge Disposition: Discharged to home or Selfcare 10/25/2025 11:30 AM CDT Clinical Support [facility] Oncology Services [address] [place] [address] Hector Rendon MD [address] [place] [address] Discharge Disposition: Discharged to home or Selfcare [...] documented as of this encounter Care Teams Electric Arc Furnace Operator Relationship Specialty Start Date End Date Silvano Byrne MD [address] [facility] [address] [place] [address] PCP - General Family Medicine 02/25/20 03/23/24 Nati Garcia PAC [address] [address] PCP - General Physician Floor Refinisher 03/24/24 Juan David Ashby MD Consulting Physician General Surgery 12/27/19 Hector Rendon MD [address] [place] [address] Consulting Physician Medical Oncology 12/27/19 Rohit Cardoso MD [address] [place] [address] Consulting Physician Radiation Oncology 12/27/19 Sung Do MD [address] [facility] [address] [place] [address] Consulting Physician Cardiovascular Disease - Cardiology 12/28/19 Shawn Alves MD [address] [place] [address] Consulting Physician Colon and Rectal Surgery 05/10/22 documented as of this encounter
--- OUTSIDE RECORDS SUMMARY | 2025-06-23 16:31 | XMS_ITS | Encounter Summary ---
Author Organization [facility] Address [address] [place] [address] Phone Care Team Providers Care C 40A Crew Chief Name Role Phone Symone Juan David Fisher MD Unavailable Hector Rendon MD Unavailable Rohit Cardoso MD Unavailable [phone] Sung Do MD Unavailable Silvano Byrne MD Primary Care Provider [phone] Shawn Alves MD Unavailable Nati Garcia [facility] Primary Care Pro vider Reason for Visit * Reason Comments Medication Refill Encounter Details Date Type Department Care Team (Late st Contact Info) Description 04/04/2022 Refill [facility] [address] [place] [phone] Silvano Byrne MD [address] [place] [address] Medication Refill Social History Tobacco Use Types [...] 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 Not on file No [...] MD [facility] 06/25/21 Office Visit Silvano Byren MD [facility] 04/23/21 Office Visit Belinda Kelly APRN, [facility] [place] 04/06/21 Office Visit Silvano Byrne MD [facility] Showing recent visits within past 365 days and meeting all other requirements Future Appointments Date Type Provider Dept 04/22/22 Appointment Silvano Byrne MD [facility] Showing future appointments within next 90 days and meeting all other requirements documented in this encounter Plan of Treatment Upcoming Encounters Date Type Department Care Team (Late st Contact Info) Description 08/03/2025 1:30 PM SENIOR LOGISTICS MANAGER Office Visit [facility] Cardiology - [place] [address] [place] [address] Nati Garcia, PAC [address] [place] [address] Nissa Monzon MD [address] [address] 08/30/2025 11:00 AM SENIOR LOGISTICS MANAGER Office Visit [facility] Primary Care - [place] [address] [place] [address] Nati Garcia, DEEDEE [address] [place] [address] 10/25/2025 11:00 AM CDT Office Visit [facility] Oncology Services [address] [place] [address] Hector Rendon MD [address] [place] [address] Discharge Disposition: Discharged to home or Selfcare 10/25/2025 11:30 AM CDT Clinical Support [facility] Oncology Services [address] [place] [address] Hector Rendon MD [address] [place] [address] Discharge Disposition: Discharged to home or Selfcare [...] as of this encounter Care Teams C 40A Crew Chief Relationship Specialty Start Date End Date Silvano Byrne MD [address] [facility] [address] [place], [place] [phone] PCP - General Family Medicine 02/25/20 03/23/24 Nati Garcia, [facility] #[address] [address] PCP - General Physician Bench Worker Binding 03/24/24 Juan David Ashby MD Consulting Physician General Surgery 12/27/19 Hector Rendon MD [address] [place] [address] Consulting Physician Medical Oncology 12/27/19 Rohit Cardoso MD [address] [place] [address] Consulting Physician Radiation Oncology 12/27/19 Sung Do MD [address] [facility] [address] [place], [place] [id number] Consulting Physician Cardiovascular Disease - Cardiology 12/28/19 Shawn Alves MD [address] [place] [address] Consulting Physician Colon and Rectal Surgery 05/10/22 documented as of this encounter
--- OUTSIDE RECORDS SUMMARY | 2025-06-23 16:31 | XMS_ITS | Encounter Summary ---
Author Organization [facility] Address [address] [place] [address] Phone Care Team Providers Care Taping Supervisor Name Role Phone SymoneJuan David MD Unavailable [phone] Hector Rendon MD Unavailable Rohit Cardoso MD Unavailable Sung Do MD Unavailable Silvano Byrne MD Primary Care Provider Shawn Alves MD Unavailable Nati Garcia [facility] Primary Care Pro vider Reason for Visit * Reason Comments Medication Refill Encounter Details Date Type Department Care Team (Late st Contact Info) Description 04/14/2022 Refill [facility] - Internal Medicine - [place] Guido Staples [address] [place] [address] Silvano Byrne MD [address] [place] [address] Medication Refill Social History Tobacco Use Types [...] Start Date 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 - Primary Care - [place] [address] [place] [address] Nati Garcia, PAC [address] [place] [address] 10/25/2025 11:00 AM CDT Office Visit [facility] Oncology Services [address] [place] [address] Hector Rendon MD [address] [place] [address] Discharge Disposition: Discharged to home or Selfcare 10/25/2025 11:30 AM CDT Clinical Support [facility] Oncology Services [address] [place] [address] Hector Rendon MD [address] [place] [address] Discharge Disposition: Discharged to home or Selfcare [...] documented as of this encounter Care Teams Taping Supervisor Relationship Specialty Start Date End Date Silvano Byrne MD [address] [facility] [address] [place] [address] PCP - General Family Medicine 02/25/20 03/23/24 Nati Garcia PAC [address] [address] PCP - General Physician Independent Insurance Adjuster 03/24/24 Juan David Ashby MD Consulting Physician General Surgery 12/27/19 Hector Rendon MD [address] [place] [address] Consulting Physician Medical Oncology 12/27/19 Rohit Cardoso MD [address] [facility] [place] [address] Consulting Physician Radiation Oncology 12/27/19 Sung Do MD [address] [facility] [address] [place] [address] Consulting Physician Cardiovascular Disease - Cardiology 12/28/19 Shawn Alves MD [address] [address] Consulting Physician Colon and Rectal Surgery 05/10/22 documented as of this encounter
--- OUTSIDE RECORDS SUMMARY | 2025-06-23 16:31 | XMS_ITS | Encounter Summary ---
Author Organization [facility] Address [address] [place] [address] Phone Care Team Providers Care Fuse Cutter Name Role Phone Symone Juan David Fisher MD Unavailable Hector Rendon MD Unavailable Rohit Cardoso MD Unavailable Sung Do MD Unavailable Silvano Byrne MD Primary Care Provider Shawn Alves MD Unavailable Nati Garcia [facility] Primary Care Pro vider Reason for Visit * Reason Comments Medication Refill Encounter Details Date Type Department Care Team (Late st Contact Info) Description [facility]/12[facility] [address] [place] [address] Hector Rendon MD [address] [place] [address] Medication Refill Social History Tobacco [...] Start Date 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 - Primary Care - [place] [address] [place] [address] Nati Garcia, DEEDEE [address] [place] [address] 10/25/2025 11:00 AM CDT Office Visit [facility] Oncology Services [address] [place] [phone] Hector Rendon MD [address] [place] [address] Discharge Disposition: Discharged to home or Selfcare 10/25/2025 11:30 AM CDT Clinical Support [facility] Oncology Services [address] [place] [address] Hector Rendon MD [address] [place] [address] Discharge Disposition: Discharged to home or Selfcare documented as of this encounter Visit Diagnoses Not on filedocumented in this encounter Care Teams Fuse Cutter Relationship Specialty Start Date End Date Silvano Byrne MD [address] [address] PCP - General Family Medicine 02/25/20 03/23/24 Nati Garcia PAC [address] [address] PCP - General Physician Burr Mill Operator 03/24/24 Juan David Ashby MD Consulting Physician General Surgery 12/27/19 Hector Rendon MD [address] [place] [address] Consulting Physician Medical Oncology 12/27/19 Rohit Cardoso MD [address] [place] [address] Consulting Physician Radiation Oncology 12/27/19 Sung oD MD [address] [address] Consulting Physician Cardiovascular Disease - Cardiology 12/28/19 Shawn Alves MD [address] [place] [address] Consulting Physician Colon and Rectal Surgery 05/10/22 documented as of this encounter
--- OUTSIDE RECORDS SUMMARY | 2025-06-23 16:31 | XMS_ITS | Encounter Summary ---
Author Organization [facility] Address [address] [place] [address] Phone Care Team Providers Care Senior Firewall Engineer Name Role Phone Symone Juan David Fisher MD Unavailable Hector Rendon MD Unavailable [phone] Rohit Cardoso MD Unavailable Sung Do MD Unavailable Silvano Byrne MD Primary Care Provider Shawn Alves MD Unavailable Nati Garcia [facility] Primary Care Pro vider Reason for Visit * Reason Comments Medication Refill Encounter Details Date Type Department Care Team (Late st Contact Info) Description [facility] [address] [place] [address] Hector Rendon MD [address] [place] [address] Medication Refill Social History Tobacco [...] Date 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 - Cardiology - [place] [address] [place] [address] Nati Garcia, DEEDEE [address] [place] [address] Nissa Monzon MD [address] [address] 08/30/2025 11:00 AM CANDLE WRAPPING MACHINE OPERATOR Office Visit [facility] - Primary Care - [place] [address] [place] [address] Nati Garcia, PAC [address] [place] [address] 10/25/2025 11:00 AM CDT Office Visit [facility] Oncology Services [address] [place] [phone] Hector Rendon MD [address] [place] [address] Discharge Disposition: Discharged to home or Selfcare 10/25/2025 11:30 AM CDT Clinical Support [facility] Oncology Services [address] [place] [address] Hector Rendon MD [address] [place] [address] Discharge Disposition: Discharged to home or Selfcare [...] as of this encounter Care Teams Senior Firewall Engineer Relationship Specialty Start Date End Date Silvano Byrne MD [address] [address] PCP - General Family Medicine 02/25/20 03/23/24 Nati Garcia PAC [address] [address] PCP - General Physician Service Cleaner 03/24/24 Juan David Ashby MD Consulting Physician General Surgery 12/27/19 Hector Rendon MD [address] [place] [address] Consulting Physician Medical Oncology 12/27/19 Rohit Cardoso MD [address] [place] [address] Consulting Physician Radiation Oncology 12/27/19 Sung Do MD [address] [address] Consulting Physician Cardiovascular Disease - Cardiology 12/28/19 Shawn Alves MD [address] [address] Consulting Physician Colon and Rectal Surgery 05/10/22 documented as of this encounter
--- OUTSIDE RECORDS SUMMARY | 2025-06-23 16:31 | XMS_ITS | Encounter Summary ---
Author Organization [facility] Address [address] [place] [address] Phone Care Team Providers Care Biomedical Equipment Support Specialist Name Role Phone Juan David Ashby MD Unavailable Hector Rendon MD Unavailable Rohit Cardoso MD Unavailable [phone] Sung Do MD Unavailable Shawn Alves MD Unavailable Nati Garcia [facility] Primary Care Pro vider Reason for Visit * Reason Onset Date Comments Follow-up 05/04/2025 Encounter Details Date Type Department Care Team (Late st Contact Info) Description 05/04/2025 Telephone [facility] [address] [place] [phone] Nati Garcia, [facility] [address] [place] [address] Follow-up Social History Tobacco Use Types Packs/Day Years Used Date Smoking Tobacco: Never Smokeless Tobacco: Never Alcohol Use Standard Drinks/Week Comments Not Currently 0 (1 standard drink = 0.6 oz pur e alcohol) Occasionally on holidays. [facility] Utilities Answer Date Recorded In the [...] and Family Not on file 03/29/2024 Attends [employer] Not on file 03/29 Active Member [...] Total Score - Questions 1-9 5 09/05 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 Currently sees [employer] [facility] school of dental medicine in [place]. Phone number online [phone] Patient states fax was sent 3-4 times to the office. Recommendation: Please advise documented in this encounter Plan of Treatment Upcoming Encounters Date Type Department Care Team (Late st Contact Info) Description 08/03/2025 1:30 PM OIL FIELD WORKER Office Visit [facility] - Cardiology [facility] [address] [place] [address] Nati Garcia, PAC [address] [place] [address] Nissa Monzon MD [address] [address] 08/30/2025 11:00 AM OIL FIELD WORKER Office Visit [facility] Primary Care - [place] [address] [place] [phone] Nati Garcia PAC [address] [place] [address] 10/25/2025 11:00 AM CDT Office Visit [facility] Oncology Services [address] [place] [address] Hector Rendon MD [address] [place] [address] Discharge Disposition: Discharged to home or Selfcare 10/25/2025 11:30 AM CDT Clinical Support [facility] Oncology Services [address] [place] [address] Hector Rendon MD [address] [place] [address] Discharge Disposition: Discharged to home or Selfcare [...] documented as of this encounter Care Teams Biomedical Equipment Support Specialist Relationship Specialty Start Date End Date Nati Garcia PAC [address] [address] PCP - General Physician Disassembler Product 03/24/24 Juan David Ashby MD Consulting Physician General Surgery 12/27/19 Hector Rendon MD [address] [place] [address] Consulting Physician Medical Oncology 12/27/19 Rohit Cardoso MD [address] [place] [address] Consulting Physician Radiation Oncology 12/27/19 Sung Do MD [address] [address] Consulting Physician Cardiovascular Disease - Cardiology 12/28/19 Shawn Alves MD #[address] [address] Consulting Physician Colon and Rectal Surgery 05/10/22 documented as of this encounter
--- OUTSIDE RECORDS SUMMARY | 2025-06-23 16:31 | XMS_ITS | Clinical Summary ---
Author Organization [facility] Address [address] [facility], [address] [address] Phone Care Team Providers Care Revenue Analyst Name Role Phone Juan David Ashby MD Unavailable Hector Rendon MD Unavailable [phone] Rohit Cardoso MD Unavailable Sung Do MD [...] EVERY DAY IN THE MORNING 7 Active Cholecalcifero l (VITAMIN D-3 PO)Indications :Osteopenia of multiple sites Take by mouth. Active ProAir HFA 108 (90 Base) MCG/ACT Aerosol Solution INHALE 1-2 PUFFS BY MOUTH EVERY 6 HOURS NEEDED FOR WHEEZING 8.5 Inhaler 1 Active Denosumab (PROLIA) 60 MG/ML Solution Prefilled [...] 1 Puff by inhalation 2 times daily. 5 Active letrozole (FEMARA) 2.5 MG TabletIndicati ons:Carcinoma of upper-outer quadrant of right breast in female, estrogen receptor positive TAKE 1 TABLET BY MOUTH EVERY DAY 90 Tablet 1 5 Active apixaban (Eliquis) 5 MG Tablet Take 5 mg by mouth 2 times daily. Active metoprolol tartrate (LOPRESSOR) 50 MG Tablet Take 50 mg by mouth 2 times daily. Active ferrous sulfate 325 (65 Fe) MG TabletIndicati ons:Iron Deficiency Anemia 1 tab by mouth once every other day Indications: Anemia From Inadequate Iron in the Body 48 Tablet 1 5 Active Mirtazapine (REMERON) 7.5 MG Tablet Take 1 Tablet by mouth nightly. 30 Tablet 2 5 Active levothyroxine (SYNTHROID) 75 MCG Tablet Take 1 Tablet by mouth daily. 90 Tablet 3 5 Active levothyroxine (SYNTHROID) 50 MCG Tablet TAKE 1 TABLET BY MOUTH EVERY DAY 90 Tablet 1 5 025 Discontin ued(Dose adjustmen t) Active Problems Problem Noted Date Diagnosed Date Poor appetite 04/26/2025 Infected pacemaker 12/07/2024 Presence of cardiac pacemaker 03/19/2024 Overview (03/01/2025): Medtronic Micra AV2 Leadless Pacemaker. Dx; CHB. DOI 12/09/2024-[place]. Carelink remote. Esophageal stenosis 01/05/2024 History of malignant neoplasm of breast 09/11/19 Anemia 09/10/2021 Osteoarthritis of right hip 09/10/2021 [...] total fan radiation, radiotherapy in 1975 at [facility] in the management of Hodgkin's disease. Records were unavailable. Right partial breast radiotherapy, 50.4 Gy in 28 fractions, from 01/10/2020 thru 02/16/2020. Personal history of Hodgkin lymphoma 12/08/2019 Overview (02/16/2020): Diagnosed in 1976 at the age of 16 years with Hodgkin's disease with a high right neck presentation, subtype in stage unknown. She received radiation therapy at [place] [facility] with what from her description sounded like [...] from 12/28/2019:Stage IA(pT1b, pN0(sn), cM0, G2, ER+, AZ+, HER2-, Oncotype DX score: 17) - Signed by Rohit Cardoso MD on 12/28/2019 Overview (02/16/2020): Pathological stage IA ER/AZ positive, HER2 negative an Oncotype DX score [...] Encounters Date Type Department Care Team Description 05/31/2025 Results Follow-Up [facility] [address] [place] [address] Nati Garcia, DEEDEE THYROID STIMULATING HORMONE (TSH), THYROXINE (T4) FREE 05/30/2025 12:40 PM MACHINIST MECHANIC Lab [facility] [address] [facility] [place] [phone] Acquired hypothyroidism Discharge Disposition: Discharged to home or Selfcare 05/30/2025 11:30 AM MACHINIST MECHANIC Office Visit [facility] [address] [place] [address] Nati Garcia PAC Chronic heart failure with preserved ejection fraction (Primary Dx); Presence of cardiac pacemaker; Leg swelling Discharge Disposition: Discharged to home or Selfcare 05/30/2025 Travel 05/23/2025 Telephone [facility] [address] [facility] [address] Nati Garcia, DEEDEE 05/23/2025 Telephone [facility] [address] [place] [phone] Nati Garcia, DEEDEE Referral 05/20/2025 Telephone [facility] [address] [place] [phone] Nati Garcia, DEEDEE Need Order 05/17/2025 10:30 AM MACHINIST MECHANIC Office Visit [facility] [address] [place] [address] Nati Garcia PAC Shortness of breath (Primary Dx); Chronic heart failure with preserved ejection fraction Discharge Disposition: Discharged to home or Selfcare 05/17/2025 Travel 05/16/2025 Telephone [facility] [place] [address] [place] [address] Nati Garcia, PAC 05/04/2025 Telephone [facility] [address] [place] [address] Nati Garcia, DEEDEE Follow-up 05/04/2025 Refill [facility] [address] [place] [address] Nati Garcia, DEEDEE Medication Refill 04/26/2025 11:30 AM CDT Clinical Support [facility] [address] [place] [address] Hector Rendon MD Carcinoma of upper-outer quadrant of right breast in female, estrogen receptor positive (Primary Dx); Age-related osteoporosis without current pathological fracture; Osteoarthritis of right hip, unspecified osteoarthritis type; Use of letrozole (Femara) Discharge Disposition: Discharged to home or Selfcare 04/26/2025 11:00 AM CDT Office Visit [facility] [address] [place] [address] Hector Rendon MD Poor appetite (Primary Dx); Use of letrozole (Femara); Status post partial mastectomy of right breast; Abnormal finding of blood chemistry, unspecified Discharge Disposition: Discharged to home or Selfcare 04/26/2025 Travel 04/19/2025 Telephone [facility] [place] [address] [place] [address] Nati Garcia, DEEDEE Medication Refill 04/11/2025 Telephone [facility] [address] [place] [phone] Nati Garcia, PAC Advice Only; Letter for School/Work 04/11/2025 [facility]phone [facility] [address] [place] [address] Hector Rendon MD 03/30/2025 11:30 AM CDT [facility] [place] [address] [place] [address] Nati Garcia PAC Essential hypertension (Primary Dx) Discharge Disposition: Discharged to home or Selfcare 03/30/2025 Travel from Last 3 Months Immunizations Immunization Administration [...] Never Smokeless Tobacco: Never Tobacco Cessation:Counseling Given: Yes Alcohol Use Standard Drinks/Week Comments Not Currently 0 (1 standard drink = 0.6 oz pur e alcohol) Occasionally on holidays. [facility] Utilities Answer Date Recorded In the past 12 months has [employer], [employer], or [employer] threatened to shut off services in your home? No 03/29/2024 Social Connection and Isolation Panel Answer Date Recorded In a typical week, how many times do you talk on the phone with family, friends, or neighbors? 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 Not on file Not on file No t on file Last Filed Vital Signs Vital Sign Reading Time Taken Comments Blood Pressure 104/64 05/30/2025 11:34 AM MACHINIST MECHANIC Pulse 54 05/30/2025 11:34 AM MACHINIST MECHANIC Temperature 35.9 C (96.6 F) 05/30/2025 11:34 AM MACHINIST MECHANIC Respiratory Rate 12 05/30/2025 11:34 AM MACHINIST MECHANIC Oxygen Saturation 98% 05/30/2025 11:34 AM MACHINIST MECHANIC Inhaled Oxygen Concentration - - Weight 51.7 kg (114 lb) 05/30/2025 11:34 AM MACHINIST MECHANIC Height 162.6 cm (5' 4) 04/26/2025 10:30 AM CDT Body Mass Index 19.57 04/26/2025 10:30 AM CDT Plan of Treatment Upcoming Encounters Date Type Department Care Team (Late st Contact Info) Description 08/03/2025 1:30 PM MACHINIST MECHANIC Office Visit [facility] - [facility] [address] [place] [address] Nati Garcia, PAC [address] [place] [address] Nissa Monzon MD [address] [address] 08/30/2025 11:00 AM MACHINIST MECHANIC [facility] [place] [address] [place] [address] Nati Garcia, PAC [address] [place] [address] 10/25/2025 11:00 AM CDT [facility] [address] [place] [phone] Hector Rendon MD [address] [place] [address] Discharge Disposition: Discharged to home or Selfcare 10/25/2025 11:30 AM CDT Clinical Support [facility] [address] [place] [phone] Hector Rendon MD [address] [place] [address] Discharge Disposition: Discharged to home or Selfcare [...] Discontinued 09/27/2020, 09/05 Zoster Immunization Completed 07/02/2023, 0 Mammogram Unilateral Discontinued 07/09/2024, 07/09/2023, 06/13/2022, Additional history exists Hepatitis B Immunization Aged Out No longer eligible based on patient's age to complete this topic Human Papillomavirus (HPV) Immunization (No Doses Required) Completed Meningococcal Immunization (ACWY) Aged Out No longer eligible based on patient's age to complete this topic Rotavirus Immunization Aged Out No lo nger eligible based on patient's age to complete this topic Goals Goal Patient Goal Type Associated Problems Recent Progress Patient-Stated? Author Healthy Lifestyle Healthy Lifestyle No Carolyn Bhakta RN Note: Pace/increase activity Procedures Procedure Name Priority Date/Time Associated Diagnosis Comments THYROXINE (T4) FREE Routine 05/30/2025 1 2:27 PM MACHINIST MECHANIC Acquired hypothyroidism THYROID STIMULATING HORMONE (TSH) Routine 05/30/2025 12:27 PM MACHINIST MECHANIC Acquired hypothyroidism CMP (COMPREHENSIVE METABOLIC PANEL) Routine 05/27/2025 12:00 AM MACHINIST MECHANIC Poor appetite Use of letrozole (Femara) Status post partial mastectomy of right breast US - UPPER EXTREMITY 05/20/2025 12:00 AM MACHINIST MECHANIC CARDIOLOGY CONSULT 05/12/2025 12 :00 AM MACHINIST MECHANIC XR - CHEST 05/12/2025 12:00 AM MACHINIST MECHANIC CMP (COMPREHENSIVE METABOLIC PANEL) Routine 04/14/2025 12:00 AM CDT Osteopenia of multiple sites KEILY SCREENING BILATERAL DIGITAL W CAD W BETHANY Routine 07/09/2024 11:45 AM MACHINIST MECHANIC Carcinoma of upper-outer quadrant of right breast in female, estrogen receptor positive (HCC) Encounter for screening mammogram for malignant neoplasm of breast HUMAN PAPILLOMA VIRUS (HPV) Routine 12/23/2023 3:33 PM CDT Encounter for well woman exam with routine gynecological exam PATHOLOGY CYTOLOGY INSTRUCTOR OF EDUCATION Routine 12/23/2023 3:33 PM CDT Encounter for well woman exam with routine gynecological exam GI IMAGING - COLONOSCOPY Routine 06/27/2022 10:23 AM MACHINIST MECHANIC from Last 3 Months or Most Recently Relevant to Health Maintenance Results * THYROXINE (T4) FREE (05/30/2025 12:27 PM MACHINIST MECHANIC) T4 FREE 1.0 0.7 - 1.9 ng/dL 05/30/2025 4:00 PM MACHINIST MECHANIC [facility] Blood Venipuncture / Unknown 05/30/2025 12:27 PM MACHINIST MECHANIC 05/30/2025 12:27 PM MACHINIST MECHANIC Nati Garcia PAC CHEMISTRY ORDERAB LES Final Result [facility] [address] [place] [address] * (ABNORMAL) THYROID STIMULATING HORMONE (TSH) (05/30/2025 12:27 PM MACHINIST MECHANIC) TSH 5.914(H) 0.300 - 5.000 mIU/L 05/30/2025 4:00 PM MACHINIST MECHANIC [facility] Blood Venipuncture / Unknown 05/30/2025 12:27 PM MACHINIST MECHANIC 05/30/2025 12:27 PM MACHINIST MECHANIC Nati Garcia PAC CHEMISTRY ORDERAB LES Final Result [facility] [address] [place] [address] * CMP (COMPREHENSIVE METABOLIC PANEL) (05/27/2025 12:00 AM MACHINIST MECHANIC) Only the most recent of2 resultswithin the time period is included. Blood Hector Rendon MD CHEMISTRY ORDERABLES Fin al Result Performing Organization Address [facility] de Phone Number SCAN * US - UPPER EXTREMITY (05/20/2025 12:00 AM MACHINIST MECHANIC) 05/20/2025 us Provider Scan IMG US ORDERABLES Final Result Performing Organization Address [facility] de Phone Number SCAN * XR - CHEST (05/12/2025 12:00 AM MACHINIST MECHANIC) 05/12/2025 us Provider Scan IMG DIAGNOSTIC ORDERABLES Final Result Performing Organization Address [facility] de Phone Number SCAN * CARDIOLOGY CONSULT (05/12/2025 12:00 AM MACHINIST MECHANIC) 05/12/2025 Nati Garcia PAC GENERIC SCAN ORDE RS CONSULT Final Result Performing Organization Address [facility] de Phone Number SCAN * KEILY SCREENING BILATERAL DIGITAL W CAD W BETHNAY (07/09/2024 11:45 AM MACHINIST MECHANIC) Anatomical Region Laterality Modality breast Bilateral Mammography 07/09/2024 10:5 3 AM MACHINIST MECHANIC Narrative 07/10/2024 7:17 AM MACHINIST MECHANIC - KEILY SCREENING BILATERAL DIGITAL W CAD [...] is made to exams dated: 07/09/[address] [facility], 06/13/2022, and 06/05/2021 [facility]. BREAST TISSUE:The breasts are heterogeneously dense, [...] her next screening exam. Electronically signed by: aDmaris bang/alexis:07/09/2024 17:02:14 Pump Tender(s): RT Alexus(R)(M), [facility] letter sent: Normal Exam Reading location: [facility] Mammogram BI-RADS: Category 2: Benign Procedure [...] Comparison is made to exams dated: 07/09/2023 [facility], 06/13/2022, and 06/05/2021 [facility]. BREAST TISSUE:The breasts are heterogeneously dense, [...] signed by: Damaris Villalobos M.D. ab/penrad:07/09/2024 17:02:14 Pump Tender(s): RT Alexus(R)(M), [facility] letter sent: Normal Exam Reading location: [facility] Mammogram BI-RADS: Category 2: Benign us Maile Decker PAC IMG MAMMO ORDERABLES Bonnie l Result * PATHOLOGY CYTOLOGY INSTRUCTOR OF EDUCATION (12/23/2023 3:33 PM CDT) SPECIMEN ADEQUACY A scant cellular component is noted. Endocervical/transf ormation zone component is present. 01/05/2024 2:13 PM CDT [facility] DESCRIPTIVE DIAGNOSIS NEGATIVE FOR INTRAEPITHELIAL LESIONS OR MALIGNANCY. 01/05/2024 2:13 PM CDT [facility] at 1413 CDT Automated Examination Analysis of this sample has been assisted by an automated imaging and review system ([employer] Imaging System, [employer], [place], [place]). This case is further evaluated and finalized by a punchboard stuffer and/or pathologist. 01/05/2024 2:13 PM CDT [facility] Disclaimer The PAP smear is a screening [...] unless clinically indicated. 01/05/2024 2:13 PM CDT [facility] Case Report Gynecologic Cytology Report Case: [id number] Authorizing Provider: Lanie Sol APRN, CNP Collected: 12/23/2023 03:33 PM Ordering Location: [facility] - [facility] Received: 12/23/2023 03:33 PM Medicine - [place] First Screen: Anneliese Miller Specimen: TP Screen, Cervix/Endocervix 01/05/2024 2:13 PM CDT [facility] Other CERVIX UTERI STRUCTURE / Unknown Non-Phlebotomy Collection / Unknown 12/23/2023 3:33 PM CDT 12/23/2023 3:33 PM CDT us Lanie Sol APRN, CNP PATHOLOGY/CYTOLOGY ORDER JOHN Final Result [facility] [address] [place] [address], * HUMAN PAPILLOMA VIRUS (HPV) (12/23/2023 3:33 PM CDT) HPV TYPE 16 NEGATIVE NEGATIVE 12/24/2023 2:11 PM CDT [facility] Comment: A negative high-risk HPV result does [...] 18 NEGATIVE NEGATIVE 12/24/2023 2:11 PM CDT [facility] Comment: A negative high-risk HPV result does [...] PCR NEGATIVE NEGATIVE 12/24/2023 2:11 PM CDT [facility] Comment: The following Other High Risk types [...] OR DIAGNOSTIC SCREENING 12/24/2023 2:11 PM CDT [facility] Other Non-Phlebotomy Collection / Unknown 12/23/2023 3:33 PM CDT 12/23/2023 3:33 PM CDT Narrative [facility] - 12/24/2023 2:11 PM CDT Performed by Real-Time Polymerase Chain Reaction (PCR) on the [employer]o Arden 4800. This assay has been validated for use with post-aliquot samples from the [employer] T5000 processor. Lanie Sol APRN, CNP LAB SEND OUTS Final Re sult [facility] [address] [facility] [place] [address], [facility] [address] [place] [address] * GI IMAGING - COLONOSCOPY (06/27/2022 10:23 AM MACHINIST MECHANIC) Shawn Alves MD IMG DIAGNOSTIC ORDERABLES Final Result from Last 3 Months or Most Recently Relevant to Health Maintenance Insurance MEDICARE C ROMIE Advance Directives Documents on File Type Date Recorded Patient Pulper Tender Expl anation Power of Music Store Manager for Health Care 01/26/2025 3:50 PM POA HC 10/09/2018 Power of Music Store Manager for Health Care 11/11/2019 6:43 AM POA * Full Code (Latest Code Status on File) Date Activated Date Inactivated Comments 02/02/2025 2:25 PM * No CPR-Selective Treatment Date Activated Date Inactivated Comments 01/26/2025 2:54 PM 02/02/2025 2:25 PM Care Teams Revenue Analyst Relationship Specialty Start Date End Date Nati Garcia, [facility] [address] [address] PCP - General Physician Catalogue Illustrator 03/24/24 Juan David Ashby MD Consulting Physician General Surgery 12/27/19 Hector Rendon MD [address] [place] [address] Consulting Physician Medical Oncology 12/27/19 Rohit Cardoso MD [address] [place] [address] Consulting Physician Radiation Oncology 12/27/19 Sung Do MD [address] [address] Consulting Physician Cardiovascular Disease - Cardiology 12/28/19 Shawn Alves MD [address] [place] [address] Consulting Physician Colon and Rectal Surgery 05/10/22
== END 2025-06-23 16:28 | disposition home or self-care (01) ==
PROVIDERS: PCP Physician Assistant; Visit Provider Nurse Practitioner Adult Health
DX: I50.9 Heart failure, unspecified (principal); R06.02 Shortness of breath
CPT/HCPCS: 71046